=== PATIENT | male | born 1965 ===

== ENCOUNTER 2017-05-04 19:27 | Inpatient (IN) | payer OTHER ==
[2017-05-04 19:28] VITALS: BMI 25.0
[2017-05-04] MEDS ORDERED: Sodium Chloride 0.9% 1,000 ML IV ONE ×2 (20:25→21:46)
[2017-05-04 20:37] LABS: BASO # 0.1 K/uL (0.0-0.2); BASO % 0.7 % (0.0-2.0); EOS # 0.1 K/uL (0.0-0.7); EOS % 1.5 % (0.0-4.0); HEMATOCRIT 35.1 % (35.0-51.0); LYMPH # 1.5 K/uL (1.0-4.3); LYMPH % 19.1 % (20.0-40.0); MEAN CELL VOLUME 99.3 fL (80.0-94.0); MEAN CORPUSCULAR HEMOGLOBIN 33.3 pg (27.0-31.0); MEAN CORPUSCULAR HGB CONC 33.6 g/dL (33.0-37.0); MEAN PLATELET VOLUME 8.7 fL (7.2-11.7); MONO # 1.1 K/uL (0.0-0.8); MONO % 14.7 % (0.0-10.0); RED CELL DISTRIBUTION WIDTH 13.5 % (11.5-14.5); WHITE BLOOD COUNT 7.6 K/uL (4.8-10.8)
[2017-05-04 20:45] LABS: CHLORIDE 88 mmol/L (98-107); SODIUM 128 mmol/L (132-148)
[2017-05-04 20:47] LABS: GFR AFRICAN-AMERICAN > 60
[2017-05-04 20:48] LABS: ALB/GLOB RATIO 1.1 (1.0-2.1); ALKALINE PHOSPHATASE 81 U/L (38-126); ALT/SGPT 21 U/L (21-72); AST/SGOT 28 U/L (17-59); BILIRUBIN,TOTAL 0.9 mg/dL (0.2-1.3); BLOOD UREA NITROGEN 13 mg/dL (9-20); CALCIUM 9.6 mg/dl (8.6-10.4); CARBON DIOXIDE 18 mmol/L (22-30); TOTAL PROTEIN 7.3 g/dL (6.3-8.3)
[2017-05-04 20:49] LABS: ALCOHOL SERUM 258 mg/dl (0-10)
[2017-05-04 21:01] LABS: GLUCOSE,RANDOM 638 mg/dL (75-110)
[2017-05-04 21:02] LABS: POTASSIUM 5.1 mmol/L (3.6-5.2)
[2017-05-04 21:37] LABS: VENOUS BLOOD GAS BASE EXCESS -6.6 mmol/L (0.0-2.0); VENOUS BLOOD GAS PCO2 34 mmHg (40-60); VENOUS BLOOD PH 7.34 (7.32-7.43)
[2017-05-04] MEDS ORDERED: (Novolin R) Insulin Human Regular 100 units/ml vial IV STA (21:46)
[2017-05-04] MEDS ORDERED: Piperacillin/Tazobact 3.375 gm 100 ML IVPB STA (21:46)
[2017-05-04] MEDS ORDERED: Vancomycin 1 GM 1 GM/250 ML BAG IVPB STA (21:47)
[2017-05-04] MEDS ORDERED: (Novolin R) Insulin Human Regular 100 units/ml vial ONE (22:11)
[2017-05-04] MEDS ORDERED: Piperacillin/Tazobact 3.375 gm 100 ML IVPB ONE (22:11)
[2017-05-04] MEDS ORDERED: Vancomycin 1 GM 1 GM/250 ML BAG IVPB ONE (22:11)
--- NOTE | 2017-05-04 23:07 | C.PDOC ---
Time Seen by Provider: 05/04/17 20:08 Chief Complaint (Nursing): Abnormal Skin Integrity History Per: Patient, Family Onset/Duration Of Symptoms: Days (about 1 week) Current Symptoms Are (Timing): Worse Location Of Injury: Left: Foot, Leg Quality Of Symptoms: Painful, Swollen, Draining Severity: Moderate Additional History Per: Prior Records Past Medical History Reviewed: Historical Data, Nursing Documentation, Vital Signs Vital Signs: Last Vital Signs Temp 98.3 F 05/04/17 21:14 Pulse 95 H 05/04/17 21:23 Resp 18 05/04/17 21:23 BP 104/58 L 05/04/17 21:23 Pulse Ox 96 05/04/17 21:23 - Medical History PMH: Diabetes, HTN Other PMH: Alcohol abuse Surgical History: Appendectomy, Cholecystectomy - [facility] Procedures EXCISION OF LEFT FOOT SKIN, EXTERNAL APPROACH (10/17/16) INSERTION OF INFUSION DEV INTO SUP VENA CAVA, PERC APPROACH (02/29/16) OTHER SKIN & SUBQ I D (03/06/14) Family History: States: Unknown Family Hx - Social History Hx Tobacco Use: No Hx Alcohol Use: Yes Hx Substance Use: No - Immunization History Hx Tetanus Toxoid Vaccination: No Hx Influenza Vaccination: No Hx Pneumococcal Vaccination: No Review Of Systems Except As Marked, All Systems Reviewed And Found Negative. Constitutional: Negative for: Fever Cardiovascular: Negative for: Chest Pain Respiratory: Negative for: Shortness of Breath Gastrointestinal: Negative for: Vomiting, Abdominal Pain Musculoskeletal: Positive for: Leg Pain (left), Foot Pain (left). Negative for : Neck Pain Skin: Positive for: Rash Neurological: Negative for: Weakness, Seizures Physical Exam - Physical Exam Appears: Other (AOB) Skin: Warm, Dry Head: Atraumatic, Normacephalic Eye(s): bilateral: PERRL, EOMI Neck: Normal ROM, Supple Cardiovascular: Rhythm Regular Respiratory: Normal Breath Sounds, No Accessory Muscle Use Gastrointestinal/Abdominal: Soft, No Tenderness Back: No CVA Tenderness Extremity: Normal ROM, Other (Left foot ulcers, infected. Left foot erythema/ induration that is spreading up left leg. ) Pulses: Left Dorsalis Pedis: Normal, Right Dorsalis Pedis: Normal Neurological/Psych: Oriented x3, Normal Motor, Normal Sensation ED Course And Treatment - Laboratory Results Result Diagrams: 05/04/17 20:32 05/04/17 20:32 Lab Interpretation: Abnormal Interpretation Of Abnormal: Hyperglycemia without acidosis. Elevated alcohol level. O2 Sat by Pulse Oximetry: 96 Pulse Ox Interpretation: Normal - Other Rad Left foot/leg x-rays X-Ray: Interpreted by Me, Viewed By Me Interpretation: No fx or FB. Progress - Interventions Interventions:: Observation, Intravenous fluid - Medications Administered Intravenous: Other (Insulin. Abx.) - Data Reviewed Data Reviewed: Lab, Diagnostic imaging, Old records - Patient Status Patient status: Partially improved - Critical Care Citical Care: Excluding Proc Time Critical Care Time: 60 minutes - Continuity of Care Discussed patient case with:: Patient, Family-HIPPA compliant, ED Nurse, On- call PMD-pt unassigned - Patient Plan Patient Plan: Admission Disposition Discussed With DrNettie: Johnathon Diaz Comment: He accepted pt on hospitalist service. Doctor Will See Patient In The: Hospital Counseled Patient/Family Regarding: Studies Performed, Diagnosis - Disposition Disposition: HOSPITALIZED Disposition Time: 23:09 Condition: SERIOUS - POA Present On Arrival: Poor Glycemic Control - Clinical Impression Clinical Impression: Diabetic foot ulcers, Cellulitis of left leg, Diabetic infection of left foot, Alcohol abuse, Uncontrolled diabetes mellitus
--- NOTE | 2017-05-05 01:18 | CP.PCM.HP ---
<KatharineNilsa L. - Last Filed: 05/05/17 01:13> History of Present Illness - History of Present Illness History of Present Illness: CC: foot infection HPI: Patient is a 51 y/o male with PMHx of HTN and DMII, who presents to the ED because he noticed the wounds on his left foot were getting worse. Patient first noticed wounds 3 days ago. Patient also first noticed redness on left anterior leg 3 days ago. Patient has no pain in foot or leg. Patient says he has had an infection like this a few years ago. Patient denies headache, shortness of breath, chest pain, abdominal pain, nausea, vomiting, diarrhea, or constipation. PMD: [facility] (has not been in over 1 year) Allergies: NKDA PMHx: HTN, DMII Psurg: Cholecystectomy 2010 Famhx: mom and dad- DMII stomach cancer in family Social: denies tobacco and drugs. says only drinks 3 beers once per month, but is intoxicated on exam Works for [employer] medications: Metformin 1000 BID Present on Admission - Present on Admission Any Indicators Present on Admission: Yes History of DVT/PE: No History of Uncontrolled Diabetes: Yes Urinary Catheter: No Decubitus Ulcer Present: No Review of Systems - Constitutional Constitutional: absent: Frequent Falls, Headache - EENT Eyes: absent: Blurred Vision Nose/Mouth/Throat: absent: Nasal Congestion, Mouth Pain - Cardiovascular Cardiovascular: Leg Ulcers. absent: Chest Pain, Edema, Palpitations Additional comments: two ulcers on left foot - Respiratory Respiratory: absent: Cough, Dyspnea, Chest Congestion - Gastrointestinal Gastrointestinal: absent: Abdominal Pain, Diarrhea, Vomiting - Genitourinary Genitourinary: absent: Difficulty Urinating, Urinary Incontinence - Integumentary Integumentary: Skin Ulcer - Neurological Neurological: absent: Behavioral Changes, Dizziness - Psychiatric Psychiatric: absent: Confusion - Endocrine Endocrine: absent: Change in Body Appearance, Fatigue, Palpitations - Hematologic/Lymphatic Hematologic: absent: Easy Bleeding, Easy Bruising Past Patient History - Infectious Disease Hx of Infectious Diseases: None - Past Medical History & Family History Past Medical History?: Yes - Past Social History Smoking Status: Never Smoked - CARDIAC Hx Hypertension: Yes - PULMONARY Hx Respiratory Disorders: No - NEUROLOGICAL Hx Neurological Disorder: No - HEENT Hx HEENT Problems: No - RENAL Hx Chronic Kidney Disease: No - ENDOCRINE/METABOLIC Hx Endocrine Disorders: Yes Hx Diabetes Mellitus Type 2: Yes - HEMATOLOGICAL/ONCOLOGICAL Hx Blood Disorders: No Hx Blood Transfusions: No Hx Blood Transfusion Reaction: No - INTEGUMENTARY Hx Dermatological Problems: Yes Hx Cellulitis: Yes (right big toe) - MUSCULOSKELETAL/RHEUMATOLOGICAL Hx Musculoskeletal Disorders: No Hx Falls: No - GASTROINTESTINAL Hx Gastrointestinal Disorders: No - GENITOURINARY/GYNECOLOGICAL Hx Genitourinary Disorders: No - PSYCHIATRIC Hx Substance Use: No - SURGICAL HISTORY Hx Appendectomy: Yes Hx Cholecystectomy: Yes - ANESTHESIA Hx Anesthesia: Yes Hx Anesthesia Reactions: No Hx Malignant Hyperthermia: No Meds Allergies/Adverse Reactions: Allergies Allergy/AdvReac Type Severity Reaction Status Date / Time No Known Allergies Allergy Verified 10/17/16 14:59 Physical Exam - Constitutional Appears: Non-toxic, No Acute Distress - Head Exam Head Exam: ATRAUMATIC, NORMAL INSPECTION, NORMOCEPHALIC - Eye Exam Eye Exam: EOMI, Normal appearance, PERRL - ENT Exam ENT Exam: Mucous Membranes Moist, Normal Exam - Neck Exam Neck exam: Positive for: Normal Inspection - Respiratory Exam Respiratory Exam: Clear to Auscultation Bilateral, NORMAL BREATHING PATTERN. absent: Rales, Rhonchi, Wheezes, Respiratory Distress, Stridor - Cardiovascular Exam Cardiovascular Exam: REGULAR RHYTHM, RRR - GI/Abdominal Exam GI & Abdominal Exam: Normal Bowel Sounds, Soft. absent: Tenderness - Extremities Exam Additional comments: left foot two ulcers one ulcer between first and second toe 2nd ulcer on bottom left side of foot - Back Exam Back exam: NORMAL INSPECTION. absent: rash noted - Neurological Exam Neurological exam: Alert, Oriented x3 - Psychiatric Exam Psychiatric exam: Normal Affect, Normal Mood - Skin Additional comments: left foot two ulcers one ulcer between first and second toe 2nd ulcer on bottom left side of foot anterior portion of left leg below knee erythematous Results - Vital Signs Recent Vital Signs: Last Vital Signs Temp 97.5 F L 05/05/17 00:33 Pulse 97 H 05/05/17 00:33 Resp 20 05/05/17 00:33 BP 129/75 05/05/17 00:33 Pulse Ox 98 05/05/17 00:33 - Labs Result Diagrams: 05/04/17 20:32 05/04/17 20:32 Assessment & Plan - Assessment and Plan (Free Text) Assessment: 1. Diabetic Ulcer wound culture blood culture Vanco 1 g daily Zosyn 3.375 q6h f/u xray of tibia, fibula, foot 2. Uncontrolled Diabetes 10 unit IV stat given in ED ISS- medium accuchecks HgA1C 3. Alcohol abuse CIWA Aspiration precautions Neuro check q4h seizure precautions ativan 1 mg po q4h PRN 4. Prophylactic measures SCDs contraindicated due to left leg ulcers/ cellulitis <Johnathon Diaz - Last Filed: 05/05/17 06:09> Results - Vital Signs Recent Vital Signs: Last Vital Signs Temp 97.5 F L 05/05/17 00:55 Pulse 94 H 05/05/17 00:55 Resp 20 05/05/17 00:55 BP 127/76 05/05/17 00:55 Pulse Ox 97 05/05/17 00:55 - Labs Result Diagrams: 05/04/17 20:32 05/04/17 20:32 Assessment & Plan - Date & Time Date: 05/05/17 (I have seen and examined the patient. I agree with the findings and plan of care as documented by Dr. Alcantar. Patient with diabetic ulcers of lower extremity due to uncontrolled diabetes. NISS and accuchecks. Zosyn and Vanco. Wound and blood cultures. For alcohol abuse, CIWA protocol. Give thiamine and folate. Monitor for acute changes.) Time: 06:07 Attending/Attestation - Attestation I have personally seen and examined this patient.: Yes I have fully participated in the care of the patient.: Yes I have reviewed all pertinent clinical information: Yes
[2017-05-05] MEDS: Piperacill/Tazo 3.375gm in Dex 3.375 GM/50 ML BAG IVPB SCH ×4 (04:36→21:44)
[2017-05-05] MEDS ORDERED: (Novolin R) Insulin Human Regular 100 units/ml vial SC SCH (07:30)
[2017-05-05 08:48] LABS: BASO % 0.8 % (0.0-2.0); EOS # 0.2 K/uL (0.0-0.7); EOS % 3.4 % (0.0-4.0); HEMATOCRIT 33.7 % (35.0-51.0); LYMPH # 1.3 K/uL (1.0-4.3); LYMPH % 20.8 % (20.0-40.0); MEAN CELL VOLUME 99.4 fL (80.0-94.0); MEAN CORPUSCULAR HEMOGLOBIN 32.8 pg (27.0-31.0); MEAN PLATELET VOLUME 8.6 fL (7.2-11.7); MONO # 0.8 K/uL (0.0-0.8); MONO % 13.7 % (0.0-10.0); RED CELL DISTRIBUTION WIDTH 13.6 % (11.5-14.5); WHITE BLOOD COUNT 6.1 K/uL (4.8-10.8)
[2017-05-05 08:59] LABS: CHLORIDE 97 mmol/L (98-107)
[2017-05-05 09:00] LABS: POTASSIUM 4.7 mmol/L (3.6-5.2); SODIUM 134 mmol/L (132-148)
[2017-05-05 09:02] LABS: ALB/GLOB RATIO 0.9 (1.0-2.1); ALKALINE PHOSPHATASE 74 U/L (38-126); ALT/SGPT 21 U/L (21-72); AST/SGOT 11 U/L (17-59); BILIRUBIN,TOTAL 0.5 mg/dL (0.2-1.3); BLOOD UREA NITROGEN 10 mg/dL (9-20); CARBON DIOXIDE 23 mmol/L (22-30); GFR AFRICAN-AMERICAN > 60; TOTAL PROTEIN 6.1 g/dL (6.3-8.3)
[2017-05-05 09:03] LABS: CALCIUM 8.4 mg/dl (8.6-10.4); MAGNESIUM 1.5 mg/dL (1.6-2.3); PHOSPHOROUS 2.9 mg/dL (2.5-4.5)
[2017-05-05 09:04] LABS: GLUCOSE,RANDOM 440 mg/dL (75-110)
--- NOTE | 2017-05-05 09:30 | RAD ---
Left tibia and fibula 05/04/2017. History: Redness and tenderness. Rule out fracture. Frontal and lateral views of the left tibia and fibula performed. No prior study available comparison. No evidence of acute displaced fracture dislocation. The osseous structures appear grossly intact. No obvious cortical destruction. . Questionable mild infiltration changes within the subcutaneous tissues of the distal calf could represent mild cellulitis. Extensive vascular calcifications are present. If symptoms persist or early osteomyelitis suspected clinically recommend followup MRI or 3 phase bone scan. Impression: No evidence acute displaced fracture nor dislocation. No definitive evidence of cortical destructive changes however the possibility of early osteomyelitis cannot be completely excluded. . Questionable mild cellulitis as above. Extensive vascular calcifications. If there is any concern for cellulitis or osteomyelitis, recommend followup MRI or 3 phase bone scan
--- NOTE | 2017-05-05 10:37 | RAD ---
PROCEDURE: Left Foot Radiographs. HISTORY: Diabetic ulcers, r/o osteomyelitis COMPARISON: Comparison made with prior radiographs left foot dated 12/03/2016 FINDINGS: BONES: No evidence of acute displaced fracture nor dislocation. No definitive cortical destructive changes however the possibility of very early of osteomyelitis not excluded. Consider followup MRI for further evaluation or necessary. . JOINTS: Mild degenerative changes 1st MTP and DIP joints. SOFT TISSUES: Suspect mild soft tissue swelling left great toe. Questionable mild dorsal soft tissue swelling at the level of the metacarpals and MTP joints. ; rule out cellulitis. Vascular calcifications again noted OTHER FINDINGS: None. IMPRESSION: No acute fractures nor obvious cortical destructive changes however early osteomyelitis not excluded. . Suspect mild soft tissue swelling left great toe. Questionable mild dorsal soft tissue swelling at the level of the metacarpals and MTP joints. ; rule out cellulitis. Vascular calcifications again noted Followup MRI could be performed for further evaluation if necessary as above
[2017-05-05] MEDS: Magnesium Sulfate 1 gm in D5W 1 GM/100 ML BAG IVPB SCH ×2 (12:11→13:15)
[2017-05-05] MEDS: Sodium Chloride 0.9% 1,000 ML IV SCH ×2 (12:12→21:47)
[2017-05-05] MEDS ORDERED: (Novolin R) Insulin Human Regular 100 units/ml vial SC ONE (12:47)
--- NOTE | 2017-05-05 15:25 | CP.PCM.PN ---
<Dion Cosby - Last Filed: 05/05/17 15:54> Subjective - Date & Time of Evaluation Date of Evaluation: 05/05/17 Time of Evaluation: 15:19 - Subjective Subjective: PGY-[address] Fair's service Pt seen and examined at bedside. Nursing reports blood sugars >400 this AM and sliding scale coverage given. Pt admits 15+ history of type II diabetes and admits poor glycemic control. He states he takes his metformin 1000mg BID every day, but does not take insulin. When admits not checking his BG everyday, but when he does it is "250-280, sometimes higher." He admits he has had diabetic foot ulcers requiring intervention by podiatry, the latest being in October at [facility]. He admits pain improved 3-01/21 but increased pain with attempt to bear weight on his leg. He denies fever, chills, headache, shortness of breath, chest pain, abdominal pain, nausea, vomiting, diarrhea, constipation, hallucinations, or tremors. Objective - Vital Signs/Intake and Output Vital Signs (last 24 hours): Temp Pulse Resp BP Pulse Ox 97.5 F L 94 H 20 127/76 97 05/05/17 00:55 05/05/17 00:55 05/05/17 00:55 05/05/17 00:55 05/05/17 00:55 Intake and Output: 05/05/17 05/05/17 06:59 18:59 Output Total 500 Balance -500 - Medications Medications: Current Medications Piperacillin Sod/Tazobactam Sod (Zosyn 3.375 Gm Iv Premix) 3.375 gm in 50 mls @ 200 mls/hr IVPB Q6H [facility] Last Admin: 05/05/17 09:16 Dose: 200 mls/hr Vancomycin HCl 1 gm/ Sodium (Chloride) 250 mls @ 166.7 mls/hr IVPB Q24H [facility] Sodium Chloride (Sodium Chloride 0.9%) 1,000 mls @ 100 mls/hr IV .Q10H [facility] Last Admin: 05/05/17 12:12 Dose: 100 mls/hr Insulin Human NPH (Novolin N) 14 unit SC HS [facility]K Insulin Human NPH (Novolin N) 12 unit SC ACB [facility] Insulin Human Regular (Novolin R) 0 unit SC ACHS [facility] PRN Reason: Protocol Insulin Human Regular (Novolin R) 12 unit SC ACBD [facility] Lorazepam (Ativan) 2 mg PO Q4 [facility]K PRN Reason: Taper Stop: 05/10/17 10:29 Last Admin: 05/05/17 12:10 Dose: 2 mg Lorazepam (Ativan) 1 mg IVP Q6H PRN PRN Reason: Seizure activity - Labs Labs: 05/05/17 08:43 05/05/17 08:43 - Constitutional Appears: Non-toxic, No Acute Distress - Head Exam Head Exam: ATRAUMATIC, NORMAL INSPECTION, NORMOCEPHALIC - Eye Exam Eye Exam: EOMI. absent: Scleral icterus Pupil Exam: PERRL - ENT Exam ENT Exam: Mucous Membranes Moist - Respiratory Exam Respiratory Exam: Clear to Ausculation Bilateral, NORMAL BREATHING PATTERN. absent: Rales, Rhonchi, Wheezes - Cardiovascular Exam Cardiovascular Exam: REGULAR RHYTHM, +S1, +S2 - GI/Abdominal Exam GI & Abdominal Exam: Soft, Normal Bowel Sounds. absent: Tenderness - Extremities Exam Extremities Exam: Normal Capillary Refill. absent: Calf Tenderness, Normal Inspection, Pedal Edema Additional comments: left foot two ulcers one ulcer between first and second toe 2nd ulcer on bottom left side of foot Left leg warmer to touch than left DP/PT pulses palpated, weaker on left Red cellultic 6 cm rash on left leg "result of pain thinner spill last week" - denies pain at site - Neurological Exam Neurological Exam: Alert, Awake, Oriented x3 Additional comments: No tremors or tongue fasciculation - Psychiatric Exam Psychiatric exam: Normal Affect, Normal Mood - Skin Skin Exam: Normal Color, Warm Assessment and Plan - Assessment and Plan (Free Text) Plan: Left Foot Penetrating Wound Admit to Med/Surg Floor Hx of Diabetic ulcer on same foot in October - MRI on prior admission of left foot (10/24/16): Scale muscle and subcutaneous inflammatory chagnes at plantar aspect of distal left foot at level of 4th/5th metatarsal bones and toes. No evidence of osteomyelitis. - Left foot wound culture on prior admission (MRSA, beta hemolytic strep group B ) - Prior hx of osteomyelitis on RIGHT foot XR Left foot (05/04/17): No acute fractures nor obvious cortical destructive changes however early osteomyelitis not excluded. Suspect mild soft tissue swelling of left great toe. Questionable mild soft tissue swelling at level of metacarpals and MTP joints. R/o cellulitis. F/u MRI for further evaluation if necessary (see full report) XR Left Tib/Fib (05/04/17): No evidence acute fracture or dislocation. Early osteomyelitis cannot be excluded completely. Questionable mild cellulitis. Extensive vascular calcifications. f/u with MRI if concern for osteomyelitis ( see full report). f/u MRI of left foot Vancomycin 1g and Zosyn 3.375g given in ED Vancomycin 1g IV Daily Zosyn 3.375g IV q6 Podiatry consult- Dr. Hernandez, hermes appreciated - f/u reccs f/u ESR, blood cultures, wound cultures Uncontrolled Type 2 diabetes Mellitus Novolin low sliding scale coverage Diabetic Diet accu check ACHS f/u A1C, lipid panel - range of 10.9 -13 over past 4 years of admissions Endocrinology consult: Dr. Mcconnell - Novonancie NPH coverage - Novolin low sliding scale Elevated Blood Alcohol EtOH level on admission: 258 Ativan taper Prophylaxis GI- Pepcid 20mg po BID DVT- heparin 5000 Q12H Diabetic Diet Discussed with Dr. Marv Cosby PGY-1 <Juliana Fair V - Last Filed: 05/05/17 23:57> Objective - Vital Signs/Intake and Output Vital Signs (last 24 hours): Temp Pulse Resp BP Pulse Ox 97.6 F 82 18 140/81 98 05/05/17 15:49 05/05/17 15:49 05/05/17 15:49 05/05/17 15:49 05/05/17 15:49 Intake and Output: 05/05/17 05/06/17 18:59 06:59 Intake Total 1850 Balance 1850 - Medications Medications: Current Medications Famotidine (Pepcid) 20 mg PO BID [facility]AUSHIK Last Admin: 05/05/17 17:52 Dose: 20 mg Heparin Sodium (Porcine) (Heparin) 5,000 units SC Q12H [facility]AUSHIK Last Admin: 05/05/17 21:45 Dose: 5,000 units Piperacillin Sod/Tazobactam Sod (Zosyn 3.375 Gm Iv Premix) 3.375 gm in 50 mls @ 200 mls/hr IVPB Q6H [facility] Last Admin: 05/05/17 21:44 Dose: 200 mls/hr Vancomycin HCl 1 gm/ Sodium (Chloride) 250 mls @ 166.7 mls/hr IVPB Q24H [facility] Last Admin: 05/05/17 22:29 Dose: 166.7 mls/hr Sodium Chloride (Sodium Chloride 0.9%) 1,000 mls @ 100 mls/hr IV .Q10H [facility] Last Admin: 05/05/17 21:47 Dose: Not Given Insulin Human NPH (Novolin N) 14 unit SC HS KA[facility]HIK Last Admin: 05/05/17 21:45 Dose: 14 unit Insulin Human NPH (Novolin N) 12 unit SC ACB [facility]K Insulin Human Regular (Novolin R) 0 unit SC ACHS [facility]HIK PRN Reason: Protocol Last Admin: 05/05/17 21:46 Dose: 14 unit Insulin Human Regular (Novolin R) 12 unit SC ACBD [facility] Last Admin: 05/05/17 16:26 Dose: 12 unit Lorazepam (Ativan) 2 mg PO Q4 [facility]HIK PRN Reason: Taper Stop: 05/10/17 10:29 Last Admin: 05/05/17 20:09 Dose: Not Given Lorazepam (Ativan) 1 mg IVP Q6H PRN PRN Reason: Seizure activity - Labs Labs: 05/05/17 08:43 05/05/17 08:43 Attending/Attestation - Attestation I have personally seen and examined this patient.: Yes I have fully participated in the care of the patient.: Yes I have reviewed all pertinent clinical information, including history, physical exam and plan: Yes Notes (Text): Patient seen, examined, and case discussed with day-time resident Patient has worsening left foot ulcer, he denied he had prior troubles with this foot, however per EMR review and discussion with resident, remains an acute on chronic issue. Discussed with podiatry, Dr Hernandez, who will send resident and she the patient regarding the foot. Per review of xrays cannot exclude osteomyelitis. Ordered for Lower left extremity MRI r/o osteomyelitis. Patient is an uncontrolled diabetes, per view of EMR, a1c remains in double digits in spite of metformin/question of compliance. Endocrinology consulted recommended (Dr. Mcconnell) given persisten hyperglycemia, uncontrolled diabetes likely requiring insulin. Patient reports he drinks 3, 16 ounces beers a week. Patient denies withdrawal denies abuse of alcohol. Patient reports he drinks 10-12 bottles of water a day. Patient placed on Ativan taper for alcohol withdrawal given his dependence. Patient is on IV abx at present.
[2017-05-05] MEDS: (Novolin R) Insulin Human Regular 100 units/ml vial SC SCH ×3 (16:26→21:46)
[2017-05-05] MEDS ORDERED: Insulin Detemir 100 units/ml Vial (Levemir) SC SCH (22:00)
[2017-05-05] MEDS ORDERED: (Novolin N) Insulin Human Isophane (NPH) 100 u/ml 10 ml vial SC SCH (22:00)
--- NOTE | 2017-05-05 22:23 | CON ---
DATE: 05/05/2017 ENDOCRINOLOGY CONSULTATION Room 655. HISTORY OF PRESENT ILLNESS: This is a 51-year-old male with known history of type 2 diabetes, admitted here with left leg cellulitis and associated neuropathic ulceration and is being referred now for diabetic evaluation because of marked hyperglycemic acceleration as noted thereof. PAST MEDICAL HISTORY: As mentioned above, history of type 2 diabetes, currently on metformin taken as 1 g b.i.d. He admits to having used insulin some years ago, which was eventually discontinued by the patient. No recent medical followup as noted. FAMILY HISTORY: Positive for diabetes, hypertension with both parents having type 2 diabetes, on oral hypoglycemic therapy. SOCIAL HISTORY: No known substance use. REVIEW OF SYSTEMS: As mentioned above, admits to generalized body weakness with easy fatigability and tiredness and suboptimal energy level, also admits to episodic bouts of dizziness and lightheadedness, worse on the day of admission. No chest pain, palpitations, or PND. His oral intake has been variable with nausea, dyspepsia, and vague abdominal pain, also admits to marked polyuria, nocturia, and polydipsia as mentioned. PHYSICAL EXAMINATION GENERAL: This is an average built male, in no apparent distress. VITAL SIGNS: Blood pressure of 140/80, pulse of 70 bpm, regular, temperature 98, respiratory rate 20, height is 5 feet 4 inches, weight is 145 pounds. HEENT: Head is normocephalic. Eyes, anicteric with pink conjunctivae, and funduscopy not possible at this time. Ears, nose, and throat otherwise normal. NECK: Supple. Thyroid gland is normal sized. No carotid bruits or any cervical adenopathy. CARDIOPULMONARY: Adynamic precordium. S1, S2 is rapid and regular. LUNGS: Clear to auscultation. ABDOMEN: Flat, soft with positive bowel sounds. EXTREMITIES: No peripheral edema. Pulses are +2 bilaterally. The distal aspect of the left leg has marked erythema, edema and with presence of an infected ulceration as noted distally. LABORATORY DATA: The initial chemistry showed the BUN of 13, sodium 128, potassium 5.1, chloride 88,CO2 18, glucose is 638, creatinine is 0.6. ASSESSMENT: This is a 51-year-old male with uncontrolled and decompensated type 2 insulin-requiring diabetes, presenting here with marked hyperglycemia accelerations. Today, it is subtherapeutic insulin regimen. He also has an infected left leg cellulitis with concomitant neuropathic ulceration as noted thereof. Plan of management as discussed with the patient and staff. need for initiation of insulin therapy, perhaps must be overemphasis and we will start him right away on basal and bolus insulin drug combination as ordered. He has normal health insurance at this time, so we will opt to give him the more affordable insulin instead of the insulin analogs, which are triple the wilson at this time. We will start him with Novolin NPH given as 12 units a.c. breakfast and 14 units at bedtime to start today and we also modify the cover scale with Novolog insulin as given and we will titrate incrementally as indicated to optimize metabolic control. We will obtain serum chemistries and supplement accordingly as needed. We will follow. Celia Mcconnell MD
--- NOTE | 2017-05-06 02:37 | CP.PCM.CON ---
History of Present Illness - History of Present Illness History of Present Illness: 51 year old male patient with PMHx DM, HTN, alcohol abuse seen at bedside for infected left foot 1st interspace wound. Patient seen resting comfortably, AAOx3 and NAD. Patient is accompanied by his daughter. Patient states that he has had this wound for approximately 3 days. Patient denies any pain to left foot. Patient denies N/V/F/D/C/SOB/CP. No other pedal complaints at this time. PMH: DM, HTN PSH: cholecystectomy FH: DM2 (mother and father) SH: alcohol abuse Meds: Metformin All: NKDA Review of Systems - Review of Systems All systems: reviewed and no additional remarkable complaints except (as per HPI ) Past Patient History - Infectious Disease Hx of Infectious Diseases: None - Past Medical History & Family History Past Medical History?: Yes - Past Social History Smoking Status: Never Smoked - CARDIAC Hx Hypertension: Yes - PULMONARY Hx Respiratory Disorders: No - NEUROLOGICAL Hx Neurological Disorder: No - HEENT Hx HEENT Problems: No - RENAL Hx Chronic Kidney Disease: No - ENDOCRINE/METABOLIC Hx Endocrine Disorders: Yes Hx Diabetes Mellitus Type 2: Yes - HEMATOLOGICAL/ONCOLOGICAL Hx Blood Disorders: No Hx Blood Transfusions: No Hx Blood Transfusion Reaction: No - INTEGUMENTARY Hx Dermatological Problems: Yes Hx Cellulitis: Yes (right big toe) - MUSCULOSKELETAL/RHEUMATOLOGICAL Hx Musculoskeletal Disorders: No Hx Falls: No - GASTROINTESTINAL Hx Gastrointestinal Disorders: No - GENITOURINARY/GYNECOLOGICAL Hx Genitourinary Disorders: No - PSYCHIATRIC Hx Substance Use: No - SURGICAL HISTORY Hx Appendectomy: Yes Hx Cholecystectomy: Yes - ANESTHESIA Hx Anesthesia: Yes Hx Anesthesia Reactions: No Hx Malignant Hyperthermia: No Meds Allergies/Adverse Reactions: Allergies Allergy/AdvReac Type Severity Reaction Status Date / Time No Known Allergies Allergy Verified 10/17/16 14:59 - Medications Medications: Current Medications Famotidine (Pepcid) 20 mg PO BID [facility] Last Admin: 05/05/17 17:52 Dose: 20 mg Heparin Sodium (Porcine) (Heparin) 5,000 units SC Q12H [facility] Last Admin: 05/05/17 21:45 Dose: 5,000 units Piperacillin Sod/Tazobactam Sod (Zosyn 3.375 Gm Iv Premix) 3.375 gm in 50 mls @ 200 mls/hr IVPB Q6H [facility] Last Admin: 05/05/17 21:44 Dose: 200 mls/hr Vancomycin HCl 1 gm/ Sodium (Chloride) 250 mls @ 166.7 mls/hr IVPB Q24H [facility] Last Admin: 05/05/17 22:29 Dose: 166.7 mls/hr Sodium Chloride (Sodium Chloride 0.9%) 1,000 mls @ 100 mls/hr IV .Q10H [facility] Last Admin: 05/05/17 21:47 Dose: Not Given Insulin Human NPH (Novolin N) 14 unit SC HS [facility] Last Admin: 05/05/17 21:45 Dose: 14 unit Insulin Human NPH (Novolin N) 12 unit SC ACB [facility] Insulin Human Regular (Novolin R) 0 unit SC ACHS [facility] PRN Reason: Protocol Last Admin: 05/05/17 21:46 Dose: 14 unit Insulin Human Regular (Novolin R) 12 unit SC ACBD [facility] Last Admin: 05/05/17 16:26 Dose: 12 unit Lorazepam (Ativan) 2 mg PO Q4 [facility] PRN Reason: Taper Stop: 05/10/17 10:29 Last Admin: 05/05/17 23:54 Dose: 2 mg Lorazepam (Ativan) 1 mg IVP Q6H PRN PRN Reason: Seizure activity Physical Exam - Extremities Exam Additional comments: LLE exam: Derm: Severe maceration noted to L 1st interspace with weeping noted. Ulceration to lateral hallucal base noted, approximately 1cc purulence was expressed. +probe to bone. Approximately 0.8cm x 1.0cm x 0.3cm wound at lateral plantar forefoot, base fibrous no drainage, no malodor, dose not probe to bone, edges hyperkeratotic. Vascular: DP and PT pulses 2/4, CFT <3sec, TG warm to warm Neuro: Gross sensation diminished Ortho: No pain on palpation of 1st IS periwound area. No pain on palpation plantarlateral forefoot wound. Extensor substitution hammertoe deformities of digits 2-5. - Neurological Exam Neurological exam: Alert, Oriented x3 - Psychiatric Exam Psychiatric exam: Normal Affect, Normal Mood Results - Vital Signs Recent Vital Signs: Last Vital Signs Temp 97.6 F 05/05/17 15:49 Pulse 82 05/05/17 15:49 Resp 18 05/05/17 15:49 BP 140/81 05/05/17 15:49 Pulse Ox 98 05/05/17 15:49 - Labs Result Diagrams: 05/05/17 08:43 05/05/17 08:43 Labs: Laboratory Results - last 24 hr 05/05/17 05/05/17 05/05/17 06:12 08:43 08:43 WBC 6.1 RBC 3.39 L Hgb 11.1 L Hct 33.7 L MCV 99.4 H MCH 32.8 H MCHC 33.0 RDW 13.6 Plt Count 267 MPV 8.6 Neut % (Auto) 61.3 Lymph % (Auto) 20.8 [place] % (Auto) 13.7 H Eos % (Auto) 3.4 Baso % (Auto) 0.8 Neut # 3.7 Lymph # 1.3 [place] # 0.8 Eos # 0.2 Baso # 0.0 Sodium Potassium Chloride Carbon Dioxide Anion Gap BUN Creatinine Est GFR ( Amer) Est GFR (Non-Af Amer) POC Glucose (mg/dL) 416 H* Random Glucose Hemoglobin A1c 14.3 H D Calcium Phosphorus Magnesium Total Bilirubin AST ALT Alkaline Phosphatase Total Protein Albumin Globulin Albumin/Globulin Ratio 05/05/17 05/05/17 05/05/17 08:43 12:04 17:17 WBC RBC Hgb Hct MCV MCH MCHC RDW Plt Count MPV Neut % (Auto) Lymph % (Auto) [place] % (Auto) Eos % (Auto) Baso % (Auto) Neut # Lymph # [place] # Eos # Baso # Sodium 134 Potassium 4.7 Chloride 97 L Carbon Dioxide 23 Anion Gap 19 BUN 10 Creatinine 0.6 L Est GFR ( Amer) > 60 Est GFR (Non-Af Amer) > 60 POC Glucose (mg/dL) 281 H 321 H Random Glucose 440 H* D Hemoglobin A1c Calcium 8.4 L Phosphorus 2.9 Magnesium 1.5 L Total Bilirubin 0.5 AST 11 L D ALT 21 Alkaline Phosphatase 74 Total Protein 6.1 L Albumin 2.9 L D Globulin 3.1 Albumin/Globulin Ratio 0.9 L 05/05/17 21:31 WBC RBC Hgb Hct MCV MCH MCHC RDW Plt Count MPV Neut % (Auto) Lymph % (Auto) [place] % (Auto) Eos % (Auto) Baso % (Auto) Neut # Lymph # [place] # Eos # Baso # Sodium Potassium Chloride Carbon Dioxide Anion Gap BUN Creatinine Est GFR ( Amer) Est GFR (Non-Af Amer) POC Glucose (mg/dL) 276 H Random Glucose Hemoglobin A1c Calcium Phosphorus Magnesium Total Bilirubin AST ALT Alkaline Phosphatase Total Protein Albumin Globulin Albumin/Globulin Ratio Assessment & Plan - Assessment and Plan (Free Text) Assessment: 51 year old male with L 1st interspace infected ulceration secondary to DM Plan: Patient seen and evaluated. Discussed with attending, Dr. Hernandez. Charts, labs, vitals reviewed = WBC WNL @ 6.1, vital signs stable F/U wound cx results MRI LLE ordered Wound dressed with betadine soaked gauze, 4x4, and kerlix Podiatry will continue to follow while in house
[2017-05-06] MEDS: Piperacill/Tazo 3.375gm in Dex 3.375 GM/50 ML BAG IVPB SCH ×4 (05:01→21:03)
[2017-05-06 07:26] LABS: BASO # 0.1 K/uL (0.0-0.2); BASO % 1.2 % (0.0-2.0); EOS # 0.3 K/uL (0.0-0.7); HEMATOCRIT 38.5 % (35.0-51.0); LYMPH # 1.2 K/uL (1.0-4.3); LYMPH % 25.8 % (20.0-40.0); MEAN CELL VOLUME 99.9 fL (80.0-94.0); MEAN CORPUSCULAR HEMOGLOBIN 32.9 pg (27.0-31.0); MEAN CORPUSCULAR HGB CONC 32.9 g/dL (33.0-37.0); MEAN PLATELET VOLUME 8.9 fL (7.2-11.7); MONO # 0.5 K/uL (0.0-0.8); MONO % 11.3 % (0.0-10.0); NRBC % 0.1 % (0.0-2.0); RED CELL DISTRIBUTION WIDTH 13.7 % (11.5-14.5); WHITE BLOOD COUNT 4.5 K/uL (4.8-10.8)
[2017-05-06] MEDS ORDERED: (Novolin N) Insulin Human Isophane (NPH) 100 u/ml 10 ml vial SC SCH ×2 (07:30→22:00)
[2017-05-06 08:20] LABS: CHLORIDE 97 mmol/L (98-107)
[2017-05-06 08:21] LABS: POTASSIUM 3.5 mmol/L (3.6-5.2); SODIUM 136 mmol/L (132-148)
[2017-05-06 08:23] LABS: ALB/GLOB RATIO 0.9 (1.0-2.1); AST/SGOT 12 U/L (17-59); BILIRUBIN,TOTAL 0.8 mg/dL (0.2-1.3); BLOOD UREA NITROGEN 10 mg/dL (9-20); CARBON DIOXIDE 28 mmol/L (22-30); CHOLESTEROL 151 mg/dL (0-199); GFR AFRICAN-AMERICAN > 60; TOTAL PROTEIN 5.9 g/dL (6.3-8.3)
[2017-05-06 08:24] LABS: ALKALINE PHOSPHATASE 71 U/L (38-126); ALT/SGPT 21 U/L (21-72); CALCIUM 8.4 mg/dl (8.6-10.4); GLUCOSE,RANDOM 265 mg/dL (75-110); MAGNESIUM 1.7 mg/dL (1.6-2.3); PHOSPHOROUS 2.3 mg/dL (2.5-4.5)
[2017-05-06] MEDS: (Novolin R) Insulin Human Regular 100 units/ml vial SC SCH ×6 (08:43→21:48)
[2017-05-06] MEDS ORDERED: Potassium Chloride 20 mEq ER Tab PO ONE (10:00)
[2017-05-06] MEDS ORDERED: Magnesium Sulfate 1 gm in D5W 1 GM/100 ML BAG IVPB ONE (11:31)
[2017-05-06] MEDS ORDERED: Gadodiamide 287 MG/ML VIAL (15ML) IV ONE (13:45)
[2017-05-06 14:21] LABS: FOLATE 8.9 ng/mL
--- NOTE | 2017-05-06 15:12 | MRI ---
MRI left forefoot History: Infection. Evaluate for osteomyelitis. Comparison: None available. Technique: Multi-echo multiplanar sequences were performed through the left forefoot without the use of intravenous contrast. Findings: Moderate hallux valgus deformity. Bipartite medial sesamoid bone. Prominent vascular calcifications. Prominent signal abnormality seen at the head of the 4th metatarsal bone with patchy increased STIR and patchy decreased T1 signal. This may represent underlying acute infectious and or inflammatory change. Clinical correlation. Degenerative changes noted at the 1st interphalangeal joint space with some minimal osteochondral change. Mild nonspecific reactive edema at the 1st distal phalanx with increased STIR signal and minimal patchy decreased T1 signal, this is nonspecific ; however, acute early infectious and or inflammatory changes cannot entirely be excluded at this level. Mild nonspecific reactive edema at the 5th middle and distal phalanges which may correlate with failure of fat suppression. No gross T1 signal abnormality at this level. Mild reactive edema seen at the base of the 4th proximal phalanx, nonspecific. Focal signal abnormality seen within the posterior navicular bone demonstrating patchy decreased T1 signal and increased STIR signal which may represent some osteochondral change. Clinical correlation. Impression: 1. Prominent signal abnormality seen at the head of the 4th metatarsal bone with patchy increased STIR and patchy decreased T1 signal. This may represent underlying acute infectious and or inflammatory change. Mild reactive edema seen at the base of the 4th proximal phalanx, nonspecific. Clinical correlation. 2. Degenerative changes noted at the 1st interphalangeal joint space with some minimal osteochondral change. Mild nonspecific reactive edema at the 1st distal phalanx with increased STIR signal and minimal patchy decreased T1 signal, this is nonspecific ; however, acute early infectious and or inflammatory changes cannot entirely be excluded at this level. 3. Mild nonspecific reactive edema at the 5th middle and distal phalanges which may correlate with failure of fat suppression. No gross T1 signal abnormality at this level. 4. Focal signal abnormality seen within the posterior navicular bone demonstrating patchy decreased T1 signal and increased STIR signal which may represent some osteochondral change. Clinical correlation. 5. Moderate hallux valgus deformity. 6. Bipartite medial sesamoid bone. 7. Prominent vascular calcifications.
--- NOTE | 2017-05-06 16:52 | CP.PCM.PN ---
<Dion Cosby - Last Filed: 05/06/17 17:00> Subjective - Date & Time of Evaluation Date of Evaluation: 05/06/17 Time of Evaluation: 16:47 - Subjective Subjective: PGY-[address] Fair's service Pt seen and examined at bedside. Nursing reports no acute events overnight. He denies pain in the foot today. He is asking when he can leave to go home and was reminded the importance of treating his foot infection. He states he is tolerating diet and moving his bowels without difficulty. He denies fever, chills, calf tenderness, chest pain, palpitations, SOB, abdominal pain, nausea, vomiting. Objective - Vital Signs/Intake and Output Vital Signs (last 24 hours): Temp Pulse Resp BP Pulse Ox 97.4 F L 78 20 150/91 H 100 05/06/17 15:30 05/06/17 15:30 05/06/17 15:30 05/06/17 15:30 05/06/17 15:30 Intake and Output: 05/06/17 05/06/17 06:59 18:59 Intake Total 800 Balance 800 - Medications Medications: Current Medications Famotidine (Pepcid) 20 mg PO BID [facility] Last Admin: 05/06/17 09:36 Dose: 20 mg Heparin Sodium (Porcine) (Heparin) 5,000 units SC Q12H [facility] Last Admin: 05/06/17 09:36 Dose: 5,000 units Piperacillin Sod/Tazobactam Sod (Zosyn 3.375 Gm Iv Premix) 3.375 gm in 50 mls @ 200 mls/hr IVPB Q6H [facility] Last Admin: 05/06/17 09:37 Dose: 200 mls/hr Vancomycin HCl 1 gm/ Sodium (Chloride) 250 mls @ 166.7 mls/hr IVPB Q24H [facility] Last Admin: 05/05/17 22:29 Dose: 166.7 mls/hr Sodium Chloride (Sodium Chloride 0.9%) 1,000 mls @ 100 mls/hr IV .Q10H [facility] Last Admin: 05/05/17 21:47 Dose: Not Given Insulin Human NPH (Novolin N) 20 unit SC HS [facility] Insulin Human NPH (Novolin N) 16 unit SC ACB [facility] Insulin Human Regular (Novolin R) 0 unit SC ACHS [facility] PRN Reason: Protocol Last Admin: 05/06/17 14:08 Dose: 3 unit Insulin Human Regular (Novolin R) 14 unit SC ACBD [facility] Lorazepam (Ativan) 2 mg PO Q4 [facility] PRN Reason: Taper Stop: 05/10/17 10:29 Last Admin: 05/06/17 11:48 Dose: Not Given Lorazepam (Ativan) 1 mg IVP Q6H [facility] PRN Reason: Seizure activity - Labs Labs: 05/06/17 07:05 05/06/17 07:05 - Constitutional Appears: Non-toxic, No Acute Distress - Head Exam Head Exam: ATRAUMATIC, NORMAL INSPECTION, NORMOCEPHALIC - Eye Exam Eye Exam: EOMI, Normal appearance Pupil Exam: PERRL - ENT Exam ENT Exam: Mucous Membranes Moist - Neck Exam Neck Exam: Normal Inspection - Respiratory Exam Respiratory Exam: Clear to Ausculation Bilateral, Rales, NORMAL BREATHING PATTERN. absent: Rhonchi, Wheezes - Cardiovascular Exam Cardiovascular Exam: REGULAR RHYTHM, +S1, +S2 - Extremities Exam Extremities Exam: Pedal Edema, Tenderness Additional comments: left foot two ulcers one ulcer between first and second toe 2nd wound on bottom left side of foot Left leg warmer to touch than right DP/PT pulses palpated, weaker on left Light touch diminished on L5-S1 dermatome on plantar surface of left foot Reports no pain on palpation of wound sites Red cellultic ~6 cm rash on left leg "result of pain thinner spill last week" - denies pain at site - Back Exam Back Exam: NORMAL INSPECTION. absent: CVA tenderness (L), CVA tenderness (R) - Neurological Exam Neurological Exam: Alert, Awake, Oriented x3 - Psychiatric Exam Psychiatric exam: Normal Affect, Normal Mood - Skin Skin Exam: Dry, Normal Color, Warm Assessment and Plan - Assessment and Plan (Free Text) Plan: Left Foot Penetrating Wound Admit to Med/Surg Floor Hx of Diabetic ulcer on same foot in October - MRI on prior admission of left foot (10/24/16): Scale muscle and subcutaneous inflammatory chagnes at plantar aspect of distal left foot at level of 4th/5th metatarsal bones and toes. No evidence of osteomyelitis. - Left foot wound culture on prior admission (MRSA, beta hemolytic strep group B ) - Prior hx of osteomyelitis on RIGHT foot XR Left foot (05/04/17): No acute fractures nor obvious cortical destructive changes however early osteomyelitis not excluded. Suspect mild soft tissue swelling of left great toe. Questionable mild soft tissue swelling at level of metacarpals and MTP joints. R/o cellulitis. F/u MRI for further evaluation if necessary (see full report) XR Left Tib/Fib (05/04/17): No evidence acute fracture or dislocation. Early osteomyelitis cannot be excluded completely. Questionable mild cellulitis. Extensive vascular calcifications. f/u with MRI if concern for osteomyelitis ( see full report). MRI of left foot (05/06/17): Prominent signal abnormality seen at head of 4th metatarsal bone with increased STIR and patchy decreased T1 signal. May represent underlying infectious or inflammatory changes. Mild edema at base of 4th proximal phalanx, nonspecific. Correlate clinically. Degenerative changes noted at 1st interphalangeal joint space with some minimal osteochondral change. Mild nonspecific reactive edema at 1st distal phalanx with increased STIR signal and decreased T1 signal which is non-specific, but inflammatory changes cannot be entirely excluded. Mild non-specific reactive edema at 5th middle and distal phalanges which may correlate with failure of fat suppression. No gross T1 signal abnomrality at this level. Focal signal abnormality seen with the posterior navicular bone demonstrating patchy decreased T1 signal and increased STIR signal which may represent some osteochondral change. Clinical correlation. Moderate hallux valgus deformity. Bipartite medial sesamoid bone. Prominent vascular calcifications. Vancomycin 1g and Zosyn 3.375g given in ED Vancomycin 1g IV Daily (first dose 05/05/17) Zosyn 3.375g IV q6 (first dose 05/05/17) Podiatry consult- Dr. Hernandez, help appreciated - f/u MRI, wound cx results for plan moving forward - recommend ID consult ID: Dr Soliz, help appreciated - f/u reccs ESR 41 blood cultures: no growth x 24 hrs x 2 wound cultures: gram negative mela , group G streptococcus Uncontrolled Type 2 diabetes Mellitus A1C : 14.3 - range of 10.9 -13 over past 4 years of admissions Novolin low sliding scale coverage Diabetic Diet accucheck ACHS f/u Lipid panel Endocrinology consult: Dr. Mcconnell - Novolin NPH coverage - Novolin low sliding scale Elevated Blood Alcohol Hx of alcoholism EtOH level on admission: 258 Ativan taper Macrocytic Anemia MCV 99 Vitamin B12 346, Folate 8.9 - context of pt's hx of alcoholism Prophylaxis GI- Pepcid 20mg po BID DVT- heparin 5000 Q12H Diabetic Diet Discussed with Dr. Marv Cosby PGY-1 <Juliana Fair V - Last Filed: 05/06/17 19:32> Objective - Vital Signs/Intake and Output Vital Signs (last 24 hours): Temp Pulse Resp BP Pulse Ox 97.4 F L 78 20 150/91 H 100 05/06/17 15:30 05/06/17 15:30 05/06/17 15:30 05/06/17 15:30 05/06/17 15:30 - Medications Medications: Current Medications Famotidine (Pepcid) 20 mg PO BID [facility] Last Admin: 05/06/17 17:23 Dose: 20 mg Heparin Sodium (Porcine) (Heparin) 5,000 units SC Q12H [facility] Last Admin: 05/06/17 09:36 Dose: 5,000 units Piperacillin Sod/Tazobactam Sod (Zosyn 3.375 Gm Iv Premix) 3.375 gm in 50 mls @ 200 mls/hr IVPB Q6H [facility] Last Admin: 05/06/17 17:24 Dose: 200 mls/hr Vancomycin HCl 1 gm/ Sodium (Chloride) 250 mls @ 166.7 mls/hr IVPB Q24H [facility] Last Admin: 05/05/17 22:29 Dose: 166.7 mls/hr Sodium Chloride (Sodium Chloride 0.9%) 1,000 mls @ 100 mls/hr IV .Q10H [facility] Last Admin: 05/06/17 17:25 Dose: Not Given Insulin Human NPH (Novolin N) 20 unit SC HS [facility] Insulin Human NPH (Novolin N) 16 unit SC ACB [facility] Insulin Human Regular (Novolin R) 0 unit SC ACHS [facility] PRN Reason: Protocol Last Admin: 05/06/17 17:21 Dose: Not Given Insulin Human Regular (Novolin R) 14 unit SC ACBD [facility] Last Admin: 05/06/17 17:22 Dose: 14 unit Lorazepam (Ativan) 2 mg PO Q4 [facility] PRN Reason: Taper Stop: 05/10/17 10:29 Last Admin: 05/06/17 16:00 Dose: Not Given Lorazepam (Ativan) 1 mg IVP Q6H [facility]N PRN Reason: Seizure activity Silver Sulfadiazine (Silvadene 1% 20 Gm) 0 ea TOP DAILY [facility] - Labs Labs: 05/06/17 07:05 05/06/17 07:05 Attending/Attestation - Attestation I have personally seen and examined this patient.: Yes I have fully participated in the care of the patient.: Yes I have reviewed all pertinent clinical information, including history, physical exam and plan: Yes Notes (Text): Patient seen, examined, and case discussed with day-time resident. Patient reports left foot pain is about the same. Patient is pending for MRI of left foot. Patient's [id number] is uncontrolled; 14; endocrinology consulted patient is on insulin regimen. Discussed with case management in terms of starting the process to secure patient with insulin when ready for discharge and community nutrition educator to speak with the patient tomorrow. Assessment/Plan 1) Left Foot Penetrating Wound * Hx of Diabetic ulcer on same foot in October * MRI on prior admission of left foot (10/24/16): Scale muscle and subcutaneous inflammatory chagnes at plantar aspect of distal left foot at level of 4th/5th metatarsal bones and toes. No evidence of osteomyelitis. * Left foot wound culture on prior admission (MRSA, beta hemolytic strep group B) * Prior hx of osteomyelitis on RIGHT foot * XR Left foot (05/04/17): No acute fractures nor obvious cortical destructive changes however early osteomyelitis not excluded. Suspect mild soft tissue swelling of left great toe. Questionable mild soft tissue swelling at level of metacarpals and MTP joints. R/o cellulitis. F/u MRI for further evaluation if necessary (see full report) * XR Left Tib/Fib (05/04/17): No evidence acute fracture or dislocation. Early osteomyelitis cannot be excluded completely. Questionable mild cellulitis. Extensive vascular calcifications. f/u with MRI if concern for osteomyelitis ( see full report). * MRI of left foot (05/06/17): Prominent signal abnormality seen at head of 4th metatarsal bone with increased STIR and patchy decreased T1 signal. May represent underlying infectious or inflammatory changes. Mild edema at base of 4th proximal phalanx, nonspecific. Correlate clinically. Degenerative changes noted at 1st interphalangeal joint space with some minimal osteochondral change. Mild nonspecific reactive edema at 1st distal phalanx with increased STIR signal and decreased T1 signal which is non-specific, but inflammatory changes cannot be entirely excluded. Mild non-specific reactive edema at 5th middle and distal phalanges which may correlate with failure of fat suppression. No gross T1 signal abnomrality at this level. Focal signal abnormality seen with the posterior navicular bone demonstrating patchy decreased T1 signal and increased STIR signal which may represent some osteochondral change. Clinical correlation. Moderate hallux valgus deformity. Bipartite medial sesamoid bone. Prominent vascular calcifications. * IV Abx: Vancomycin 1g and Zosyn 3.375g given in ED * Vancomycin 1g IV Daily (first dose 05/05/17) * Zosyn 3.375g IV q6H (first dose 05/05/17) * Podiatry consult- Dr. Hernandez, help appreciated-->f/u MRI, wound cx results for plan moving forward and recommend ID consult * Infectious disease- Dr Soliz, help appreciated-->f/u recommendation * Blood cultures (05/04): no growth x 24 hrs x 2 * Foot Left (05/04): gram negative mela, Group G Streptoccocus (Prelim) 2) Uncontrolled Type 2 diabetes Mellitus * A1C : 14.3 * Endocrinology consult: Dr. Mcconnell on board-->help appreciated * Novolin 20 units subHS * Novolin N 16 units ACB * Regular insulin sliding subq coverage * Regular 14 units SC ACBD * Diabetic consistent diet * Accucheck ACHS * Lipid PaneL: T, Cholestrol: 151, LDL: 86; HDL: 53 3) Alcohol Use * Alcohol use: 3x a week; 16 ounces * Ativan taper (active since 05/05/17) * Ativan 1mg IVQ 4hour PRN seizure activity 4) Prophylaxis * GI- Pepcid 20mg po BID * DVT- heparin 5000 Q12H * Diabetic Diet * Florastor 250mg PO bid
[2017-05-06] MEDS: Sodium Chloride 0.9% 1,000 ML IV SCH ×2 (17:25→21:04)
--- NOTE | 2017-05-06 17:29 | CP.PCM.PN ---
Subjective - Date & Time of Evaluation Date of Evaluation: 05/06/17 Time of Evaluation: 17:24 - Subjective Subjective: 51 year old male patient seen at bedside for infected left foot 1st interspace wound. Patient seen resting comfortably, AAOx3 and NAD. Patient denies any pain to left foot. Patient denies N/V/F/D/C/SOB/CP. No other pedal complaints at this time. Objective - Vital Signs/Intake and Output Vital Signs (last 24 hours): Temp Pulse Resp BP Pulse Ox 97.4 F L 78 20 150/91 H 100 05/06/17 15:30 05/06/17 15:30 05/06/17 15:30 05/06/17 15:30 05/06/17 15:30 Intake and Output: 05/06/17 05/06/17 06:59 18:59 Intake Total 800 Balance 800 - Medications Medications: Current Medications Famotidine (Pepcid) 20 mg PO BID [facility] Last Admin: 05/06/17 09:36 Dose: 20 mg Heparin Sodium (Porcine) (Heparin) 5,000 units SC Q12H [facility] Last Admin: 05/06/17 09:36 Dose: 5,000 units Piperacillin Sod/Tazobactam Sod (Zosyn 3.375 Gm Iv Premix) 3.375 gm in 50 mls @ 200 mls/hr IVPB Q6H [facility] Last Admin: 05/06/17 09:37 Dose: 200 mls/hr Vancomycin HCl 1 gm/ Sodium (Chloride) 250 mls @ 166.7 mls/hr IVPB Q24H [facility] Last Admin: 05/05/17 22:29 Dose: 166.7 mls/hr Sodium Chloride (Sodium Chloride 0.9%) 1,000 mls @ 100 mls/hr IV .Q10H [facility] Last Admin: 05/05/17 21:47 Dose: Not Given Insulin Human NPH (Novolin N) 20 unit SC HS [facility] Insulin Human NPH (Novolin N) 16 unit SC ACB [facility] Insulin Human Regular (Novolin R) 0 unit SC ACHS [facility] PRN Reason: Protocol Last Admin: 05/06/17 14:08 Dose: 3 unit Insulin Human Regular (Novolin R) 14 unit SC ACBD [facility] Lorazepam (Ativan) 2 mg PO Q4 [facility] PRN Reason: Taper Stop: 05/10/17 10:29 Last Admin: 05/06/17 11:48 Dose: Not Given Lorazepam (Ativan) 1 mg IVP Q6H [facility] PRN Reason: Seizure activity - Labs Labs: 05/06/17 07:05 05/06/17 07:05 - Constitutional Appears: Well, Non-toxic, No Acute Distress - Extremities Exam Additional comments: LLE exam: Derm: Severe maceration noted to L 1st interspace. Ulceration to lateral hallucal base noted, approximately no purulence was expressed. +probe to bone. Approximately 0.8cm x 1.0cm x 0.3cm wound at lateral plantar forefoot, base fibrous no drainage, no malodor, dose not probe to bone, edges hyperkeratotic. Vascular: DP and PT pulses 2/4, CFT <3sec, TG warm to warm Neuro: Gross sensation diminished Ortho: No pain on palpation of 1st IS periwound area. No pain on palpation plantarlateral forefoot wound. Extensor substitution hammertoe deformities of digits 2-5. - Neurological Exam Neurological Exam: Alert, Awake, Oriented x3 - Psychiatric Exam Psychiatric exam: Normal Affect, Normal Mood Assessment and Plan - Assessment and Plan (Free Text) Assessment: 51 year old male with L 1st interspace infected ulceration secondary to DM Plan: Patient seen and evaluated. Discussed with attending, Dr. Hernandez. Charts, labs, vitals reviewed = WBC WNL @4.5, vital signs stable F/U wound cx results- prelim gram neg rods MRI LLE shows signal abnormality of 4th met head,1st interspace, middle and distal 5th phalanges Wound dressed with betadine soaked gauze, 4x4, and kerlix Podiatry will continue to follow while in house
--- NOTE | 2017-05-06 21:08 | CP.PCM.CON ---
History of Present Illness - History of Present Illness History of Present Illness: Patient is admitted with left leg pain and leg ulcer 3 days ago. Patient has no pain in foot or leg. Patient says he has had an infection like this a few years ago. Patient denies headache, shortness of breath, chest pain, abdominal pain, nausea, vomiting, diarrhea, or constipation.Patient has received many admission here with cellulitis in past PMD: [facility] (has not been in over 1 year) Allergies: NKDA PMHx: HTN, DMII Pastsurgery Cholecystectomy 2010 Famhx: mom and dad- DMII stomach cancer in family Social: denies tobacco and drugs. says only drinks 3 beers once per month, but is intoxicated on exam Works for [employer] home medications: Metformin 1000 BID I Review of Systems - Constitutional Constitutional: absent: As Per HPI, Anorexia, Chills, Daytime Sleepiness, Excessive Sweating, Fatigue, Fever, Frequent Falls, Headache, Increased Appetite , Lethargy, Malaise, Night Sweats, Snoring, Sleep Apnea, Weight Gain, Weight Loss, Weakness, Other - EENT Eyes: absent: As Per HPI, Blind Spots, Blurred Vision, Change in Vision, Decreased Night Vision, Diplopia, Discharge, Dry Eye, Exophthalmos, Floaters, Irritation, Itchy Eyes, Loss of Peripheral Vision, Pain, Photophobia, Requires Corrective Lenses, Sees Flashes, Spots in Vision, Tunnel Vision, Other Visual Disturbances, Loss of Vision, Other Nose/Mouth/Throat: absent: As Per HPI, Epistaxis, Nasal Congestion, Nasal Discharge, Nasal Obstruction, Nasal Trauma, Nose Pain, Post Nasal Drip, Sinus Pain, Sinus Pressure, Bleeding Gums, Change in Voice, Dental Pain, Dry Mouth, Dysphagia, Halitosis, Hoarsness, Lip Swelling, Mouth Lesions, Mouth Pain, Odynophagia, Sore Throat, Throat Swelling, Tongue Swelling, Facial Pain, Neck Pain, Neck Mass, Other - Cardiovascular Cardiovascular: absent: As Per HPI, Acrocyanosis, Chest Pain, Chest Pain at Rest , Chest Pain with Activity, Claudication, Diaphoresis, Dyspnea, Dyspnea on Exertion, Edema, Irregular Heart Rhythm, Pain Radiating to Arm/Neck/Jaw, Leg Edema, Leg Ulcers, Lightheadedness, Orthopnea, Palpitations, Paroxysmal Nocturnal Dyspnea, Pedal Edema, Radiating Pain, Rapid Heart Rate, Slow Heart Rate, Syncope, Other - Respiratory Respiratory: absent: As Per HPI, Cough, Dyspnea, Hemoptysis, Dyspnea on Exertion , Wheezing, Snoring, Stridor, Pain on Inspiration, Chest Congestion, Excessive Mucous Production, Change in Mucous Color, Pain with Coughing, Other - Gastrointestinal Gastrointestinal: absent: As Per HPI, Abdominal Pain, Belching, Bloating, Change in Bowel Habits, Change in Stool Character, Coffee Ground Emesis, Constipation, Cramping, Diarrhea, Dyspepsia, Dysphagia, Early Satiety, Excessive Flatus, Fecal Incontinence, Heartburn, Hematemesis, Hematochezia, Loose Stools, Melena, Nausea, Odynophagia, Temesmus, Vomiting, Other - Genitourinary Genitourinary: absent: As Per HPI, Change in Urinary Stream, Difficulty Urinating, Dysuria, Flank Pain, Hematuria, Pyuria, Nocturia, Urinary Incontinence, Urinary Frequency, Urinary Hesitance, Urinary Urgency, Voiding Freq/Small Amts, Freq UTI, Hx Renal/Bladder Calculi, Hx /Renal Surgery, Bladder Distension, Other Past Patient History - Infectious Disease Hx of Infectious Diseases: None - Past Medical History & Family History Past Medical History?: Yes - Past Social History Smoking Status: Never Smoked - CARDIAC Hx Hypertension: Yes - PULMONARY Hx Respiratory Disorders: No - NEUROLOGICAL Hx Neurological Disorder: No - HEENT Hx HEENT Problems: No - RENAL Hx Chronic Kidney Disease: No - ENDOCRINE/METABOLIC Hx Endocrine Disorders: Yes Hx Diabetes Mellitus Type 2: Yes - HEMATOLOGICAL/ONCOLOGICAL Hx Blood Disorders: No Hx Blood Transfusions: No Hx Blood Transfusion Reaction: No - INTEGUMENTARY Hx Dermatological Problems: Yes Hx Cellulitis: Yes (right big toe) - MUSCULOSKELETAL/RHEUMATOLOGICAL Hx Musculoskeletal Disorders: No Hx Falls: No - GASTROINTESTINAL Hx Gastrointestinal Disorders: No - GENITOURINARY/GYNECOLOGICAL Hx Genitourinary Disorders: No - PSYCHIATRIC Hx Substance Use: No - SURGICAL HISTORY Hx Appendectomy: Yes Hx Cholecystectomy: Yes - ANESTHESIA Hx Anesthesia: Yes Hx Anesthesia Reactions: No Hx Malignant Hyperthermia: No Meds Allergies/Adverse Reactions: Allergies Allergy/AdvReac Type Severity Reaction Status Date / Time No Known Allergies Allergy Verified 10/17/16 14:59 - Medications Medications: Current Medications Famotidine (Pepcid) 20 mg PO BID [facility] Last Admin: 05/06/17 17:23 Dose: 20 mg Heparin Sodium (Porcine) (Heparin) 5,000 units SC Q12H [facility] Last Admin: 05/06/17 21:04 Dose: 5,000 units Piperacillin Sod/Tazobactam Sod (Zosyn 3.375 Gm Iv Premix) 3.375 gm in 50 mls @ 200 mls/hr IVPB Q6H [facility] Last Admin: 05/06/17 21:03 Dose: 200 mls/hr Vancomycin HCl 1 gm/ Sodium (Chloride) 250 mls @ 166.7 mls/hr IVPB Q24H [facility] Last Admin: 05/05/17 22:29 Dose: 166.7 mls/hr Sodium Chloride (Sodium Chloride 0.9%) 1,000 mls @ 100 mls/hr IV .Q10H [facility] Last Admin: 05/06/17 21:04 Dose: 100 mls/hr Insulin Human NPH (Novolin N) 20 unit SC HS [facility] Insulin Human NPH (Novolin N) 16 unit SC ACB [facility] Insulin Human Regular (Novolin R) 0 unit SC ACHS [facility] PRN Reason: Protocol Last Admin: 05/06/17 17:21 Dose: Not Given Insulin Human Regular (Novolin R) 14 unit SC ACBD [facility] Last Admin: 05/06/17 17:22 Dose: 14 unit Lorazepam (Ativan) 2 mg PO Q4 [facility] PRN Reason: Taper Stop: 05/10/17 10:29 Last Admin: 05/06/17 21:00 Dose: Not Given Lorazepam (Ativan) 1 mg IVP Q6H PRN PRN Reason: Seizure activity Saccharomyces Boulardii (Florastor) 250 mg PO BID [facility] Silver Sulfadiazine (Silvadene 1% 20 Gm) 0 ea TOP DAILY [facility] Physical Exam - Constitutional Appears: No Acute Distress - Head Exam Head Exam: ATRAUMATIC, NORMOCEPHALIC - Eye Exam Eye Exam: Normal appearance - ENT Exam ENT Exam: Mucous Membranes Moist - Neck Exam Neck exam: Positive for: Normal Inspection - Respiratory Exam Respiratory Exam: Clear to Auscultation Bilateral - Cardiovascular Exam Cardiovascular Exam: REGULAR RHYTHM, RRR - GI/Abdominal Exam GI & Abdominal Exam: Normal Bowel Sounds, Soft - Extremities Exam Additional comments: dressing left foot Results - Vital Signs Recent Vital Signs: Last Vital Signs Temp 97.4 F L 05/06/17 15:30 Pulse 78 07/24/17 15:30 Resp 20 05/06/17 15:30 BP 150/91 H 05/06/17 15:30 Pulse Ox 100 05/06/17 15:30 - Labs Result Diagrams: 05/06/17 07:05 05/06/17 07:05 Labs: Laboratory Results - last 24 hr 05/05/17 05/06/17 05/06/17 21:31 06:19 07:05 WBC 4.5 L RBC 3.86 L Hgb 12.7 Hct 38.5 MCV 99.9 H MCH 32.9 H MCHC 32.9 L RDW 13.7 Plt Count 288 MPV 8.9 Neut % (Auto) 55.7 Lymph % (Auto) 25.8 Latimer % (Auto) 11.3 H Eos % (Auto) 6.0 H Baso % (Auto) 1.2 Neut # 2.5 Lymph # 1.2 Latimer # 0.5 Eos # 0.3 Baso # 0.1 ESR 41 H Sodium Potassium Chloride Carbon Dioxide Anion Gap BUN Creatinine Est GFR ( Amer) Est GFR (Non-Af Amer) POC Glucose (mg/dL) 276 H 276 H Random Glucose Calcium Phosphorus Magnesium Total Bilirubin AST ALT Alkaline Phosphatase Total Protein Albumin Globulin Albumin/Globulin Ratio Triglycerides Cholesterol LDL Cholesterol Direct HDL Cholesterol Vitamin B12 Folate 05/06/17 05/06/17 05/06/17 07:05 11:13 13:01 WBC RBC Hgb Hct MCV MCH MCHC RDW Plt Count MPV Neut % (Auto) Lymph % (Auto) Latimer % (Auto) Eos % (Auto) Baso % (Auto) Neut # Lymph # Latimer # Eos # Baso # ESR Sodium 136 Potassium 3.5 L Chloride 97 L Carbon Dioxide 28 Anion Gap 15 BUN 10 Creatinine 0.6 L Est GFR ( Amer) > 60 Est GFR (Non-Af Amer) > 60 POC Glucose (mg/dL) 368 H Random Glucose 265 H Calcium 8.4 L Phosphorus 2.3 L Magnesium 1.7 Total Bilirubin 0.8 AST 12 L ALT 21 Alkaline Phosphatase 71 Total Protein 5.9 L Albumin 2.8 L Globulin 3.0 Albumin/Globulin Ratio 0.9 L Triglycerides 109 D Cholesterol 151 LDL Cholesterol Direct 86 HDL Cholesterol 53 Vitamin B12 346 Folate 8.9 05/06/17 16:15 WBC RBC Hgb Hct MCV MCH MCHC RDW Plt Count MPV Neut % (Auto) Lymph % (Auto) Latimer % (Auto) Eos % (Auto) Baso % (Auto) Neut # Lymph # Latimer # Eos # Baso # ESR Sodium Potassium Chloride Carbon Dioxide Anion Gap BUN Creatinine Est GFR ( Amer) Est GFR (Non-Af Amer) POC Glucose (mg/dL) 261 H Random Glucose Calcium Phosphorus Magnesium Total Bilirubin AST ALT Alkaline Phosphatase Total Protein Albumin Globulin Albumin/Globulin Ratio Triglycerides Cholesterol LDL Cholesterol Direct HDL Cholesterol Vitamin B12 Folate Assessment & Plan (1) Cellulitis of left leg Status: Acute (2) Diabetic foot ulcers Status: Acute (3) Diabetic infection of left foot Assessment and Plan: awaiting MRi needed Status: Acute
--- NOTE | 2017-05-06 22:41 | PN ---
ENDOCRINOLOGY FOLLOWUP NOTE LOCATION: Room 655. SUBJECTIVE: This is a 51-year-old male with recent uncontrolled type 2 insulin requiring diabetes, presenting he with left lower extremity cellulitis and neuropathic leg ulceration, and is being followed closely for metabolic management. His glycemic levels are fluctuating as noted with glucose values today ranging from 276 to 368 mg/dL. LABORATORY DATA: His latest chemistry showed a BUN of 10, sodium of 136, potassium of 3.5, chloride of 97, CO2 of 28, glucose of 265 and creatinine of 0.6. IMPRESSION AND PLAN: So, at this time, we will modify his basal and bolus insulin regimen and increase the NPH to 20 units subcutaneous at bedtime daily to start tonight. We will increase the NPH in the morning to 16 units before breakfast as ordered. We will also increase the regular insulin to 14 unit subcutaneous of b.i.d. before meals to start tonight as ordered. We will continue the low-dose correction scale using regular insulin as ordered. We will follow and advise accordingly. Celia Mcconnell MD
[2017-05-07] MEDS: Piperacill/Tazo 3.375gm in Dex 3.375 GM/50 ML BAG IVPB SCH ×2 (03:58→10:25)
[2017-05-07 06:55] LABS: BASO # 0.1 K/uL (0.0-0.2); EOS # 0.3 K/uL (0.0-0.7); EOS % 5.5 % (0.0-4.0); HEMATOCRIT 37.2 % (35.0-51.0); LYMPH # 1.5 K/uL (1.0-4.3); LYMPH % 31.4 % (20.0-40.0); MEAN CELL VOLUME 99.4 fL (80.0-94.0); MEAN CORPUSCULAR HEMOGLOBIN 32.8 pg (27.0-31.0); MEAN PLATELET VOLUME 8.3 fL (7.2-11.7); MONO # 0.5 K/uL (0.0-0.8); MONO % 11.2 % (0.0-10.0); NRBC % 0.1 % (0.0-2.0); RED CELL DISTRIBUTION WIDTH 13.6 % (11.5-14.5); WHITE BLOOD COUNT 4.9 K/uL (4.8-10.8)
--- NOTE | 2017-05-07 07:13 | CP.PCM.PN ---
<Dion Cosby - Last Filed: 05/07/17 18:07> Subjective - Date & Time of Evaluation Date of Evaluation: 05/07/17 Time of Evaluation: 07:10 - Subjective Subjective: PGY-[address] Beth's service Pt seen and examined at bedside. Nursing reports no acute events overnight. Pt slightly agitated this morning, he is packing his bags and saying he might have to leave to fulfill other obligations. He continues to deny pain in the foot today. He states the swelling and redness have decreased since admission. He reports tolerating diet and moving his bowels without difficulty. He denies fever, chills, calf tenderness, chest pain, palpitations, SOB, abdominal pain, nausea, vomiting. Objective - Vital Signs/Intake and Output Vital Signs (last 24 hours): Temp Pulse Resp BP Pulse Ox 97.8 F 86 20 118/68 96 05/07/17 04:00 05/07/17 04:00 05/07/17 04:00 05/07/17 04:00 05/07/17 04:00 Intake and Output: 05/07/17 05/07/17 06:59 18:59 Intake Total 1870 Output Total 700 Balance 1170 - Medications Medications: Current Medications Famotidine (Pepcid) 20 mg PO BID [facility] Last Admin: 05/06/17 17:23 Dose: 20 mg Heparin Sodium (Porcine) (Heparin) 5,000 units SC Q12H [facility] Last Admin: 05/06/17 21:04 Dose: 5,000 units Piperacillin Sod/Tazobactam Sod (Zosyn 3.375 Gm Iv Premix) 3.375 gm in 50 mls @ 200 mls/hr IVPB Q6H [facility] Last Admin: 05/07/17 03:58 Dose: 200 mls/hr Sodium Chloride (Sodium Chloride 0.9%) 1,000 mls @ 100 mls/hr IV .Q10H [facility] Last Admin: 05/06/17 21:04 Dose: 100 mls/hr Vancomycin HCl 1,000 mg/ (Sodium Chloride) 250 mls @ 166.6 mls/hr IVPB Q12 [facility] Insulin Human NPH (Novolin N) 20 unit SC HS [facility] Last Admin: 05/06/17 22:01 Dose: 20 unit Insulin Human NPH (Novolin N) 16 unit SC ACB [facility] Insulin Human Regular (Novolin R) 0 unit SC ACHS [facility] PRN Reason: Protocol Last Admin: 05/06/17 21:48 Dose: Not Given Insulin Human Regular (Novolin R) 14 unit SC ACBD [facility] Last Admin: 05/06/17 17:22 Dose: 14 unit Lorazepam (Ativan) 2 mg PO Q4 [facility] PRN Reason: Taper Stop: 05/10/17 10:29 Last Admin: 05/07/17 04:21 Dose: Not Given Lorazepam (Ativan) 1 mg IVP Q6H [facility] PRN Reason: Seizure activity Saccharomyces Boulardii (Florastor) 250 mg PO BID [facility] Silver Sulfadiazine (Silvadene 1% 20 Gm) 0 ea TOP DAILY [facility] - Labs Labs: 05/07/17 06:43 05/06/17 07:05 - Constitutional Appears: Non-toxic, No Acute Distress - Head Exam Head Exam: ATRAUMATIC, NORMAL INSPECTION, NORMOCEPHALIC - Eye Exam Eye Exam: EOMI, Normal appearance Pupil Exam: PERRL - ENT Exam ENT Exam: Mucous Membranes Moist - Neck Exam Neck Exam: Full ROM - Respiratory Exam Respiratory Exam: Clear to Ausculation Bilateral, NORMAL BREATHING PATTERN. absent: Accessory Muscle Use, Rales, Rhonchi, Wheezes - Cardiovascular Exam Cardiovascular Exam: REGULAR RHYTHM, +S1, +S2 - GI/Abdominal Exam GI & Abdominal Exam: Soft, Normal Bowel Sounds. absent: Tenderness - Extremities Exam Additional comments: left foot two ulcers one ulcer between first and second toe 2nd wound on bottom left side of foot Left leg warmer to touch than right DP/PT pulses palpated, weaker on left Light touch diminished on L5-S1 dermatome on plantar surface of left foot Reports no pain on palpation of wound sites Diminishing ~3 cm rash on left leg - denies pain at site - Back Exam Back Exam: absent: CVA tenderness (L), CVA tenderness (R) - Neurological Exam Neurological Exam: Alert, Awake, Oriented x3 Additional comments: No tremor or tongue fasciculations signaling DTs - Psychiatric Exam Psychiatric exam: Normal Affect, Normal Mood - Skin Skin Exam: Dry, Normal Color, Warm Assessment and Plan - Assessment and Plan (Free Text) Plan: Left Foot Penetrating Wound Admit to Med/Surg Floor Hx of Diabetic ulcer on same foot in October - MRI on prior admission of left foot (10/24/16): Scale muscle and subcutaneous inflammatory chagnes at plantar aspect of distal left foot at level of 4th/5th metatarsal bones and toes. No evidence of osteomyelitis. - Left foot wound culture on prior admission (MRSA, beta hemolytic strep group B ) - Prior hx of osteomyelitis on RIGHT foot XR Left foot (05/04/17): No acute fractures nor obvious cortical destructive changes however early osteomyelitis not excluded. Suspect mild soft tissue swelling of left great toe. Questionable mild soft tissue swelling at level of metacarpals and MTP joints. R/o cellulitis. F/u MRI for further evaluation if necessary (see full report) XR Left Tib/Fib (05/04/17): No evidence acute fracture or dislocation. Early osteomyelitis cannot be excluded completely. Questionable mild cellulitis. Extensive vascular calcifications. f/u with MRI if concern for osteomyelitis ( see full report). MRI of left foot (05/06/17): Prominent signal abnormality seen at head of 4th metatarsal bone with increased STIR and patchy decreased T1 signal. May represent underlying infectious or inflammatory changes. Mild edema at base of 4th proximal phalanx, nonspecific. Correlate clinically. Degenerative changes noted at 1st interphalangeal joint space with some minimal osteochondral change. Mild nonspecific reactive edema at 1st distal phalanx with increased STIR signal and decreased T1 signal which is non-specific, but inflammatory changes cannot be entirely excluded. Mild non-specific reactive edema at 5th middle and distal phalanges which may correlate with failure of fat suppression. No gross T1 signal abnomrality at this level. Focal signal abnormality seen with the posterior navicular bone demonstrating patchy decreased T1 signal and increased STIR signal which may represent some osteochondral change. Clinical correlation. Moderate hallux valgus deformity. Bipartite medial sesamoid bone. Prominent vascular calcifications. Vancomycin 1g and Zosyn 3.375g given in ED Vancomycin 1g IV Daily (first dose 05/05/17) Zosyn 3.375g IV q6 (first dose 05/05/17) Podiatry consult- Dr. Hernandez, help appreciated - MRI LLE shows signal abnormality of 4th met head,1st interspace, middle and distal 5th phalanges - wound cx results showing prelim gram neg rods, klebsiella pneumoniae - recommend ID consult ID: Dr Soliz, hermes appreciated - f/u reccs ESR 41 blood cultures: no growth x 48 hrs x 2 wound cultures (05/04/17): gram negative mela , group G streptococcus wound culture (05/05/17): gram negative mela Uncontrolled Type 2 diabetes Mellitus A1C : 14.3 - range of 10.9 -13 over past 4 years of admissions Novolin low sliding scale coverage Diabetic Diet accucheck ACHS Lipid panel: tri 122, T Chol 154, LDL 103, HDL 47 Endocrinology consult: Dr. Mcconnell - increase NPH to 20 units SC HS - increase NPH in AM to 16 units before breakfast - increase regular insulin to 14 unit SC before meals. -continue low dose scale Nutrition consult window cleaner consult with Alana Jefferson, help appreciated Hypertension, chronic Pt normotensive over course, hypertensive today Restart home med Norvasc 10mg PO daily Elevated Blood Alcohol Hx of alcoholism EtOH level on admission: 258 Ativan taper Macrocytic Anemia MCV 99 Vitamin B12 346, Folate 8.9 - context of pt's hx of alcoholism Prophylaxis GI- Pepcid 20mg po BID DVT- heparin 5000 Q12H Diabetic Diet Discussed with Dr. Marv Cosby PGY-1 <Manfred Beth - Last Filed: 06/13/17 10:56> Objective - Vital Signs/Intake and Output Vital Signs (last 24 hours): Temp Pulse Resp BP Pulse Ox 97.6 F 89 20 128/79 98 05/12/17 13:55 05/12/17 13:55 05/12/17 13:55 05/12/17 13:55 05/12/17 13:55 - Labs Labs: 05/12/17 08:04 05/12/17 08:04 Attending/Attestation - Attestation I have personally seen and examined this patient.: Yes I have fully participated in the care of the patient.: Yes I have reviewed all pertinent clinical information, including history, physical exam and plan: Yes Notes (Text): Left Foot Penetrating Wound Hx of Diabetic ulcer on same foot in October - MRI on prior admission of left foot (10/24/16): Scale muscle and subcutaneous inflammatory chagnes at plantar aspect of distal left foot at level of 4th/5th metatarsal bones and toes. No evidence of osteomyelitis. - Left foot wound culture on prior admission (MRSA, beta hemolytic strep group B ) - Prior hx of osteomyelitis on RIGHT foot Vancomycin 1g and Zosyn 3.375g given in ED Vancomycin 1g IV Daily (first dose 05/05/17) Zosyn 3.375g IV q6 (first dose 05/05/17) Podiatry consult- Dr. Hernandez, help appreciated - MRI LLE shows signal abnormality of 4th met head,1st interspace, middle and distal 5th phalanges - wound cx results showing prelim gram neg rods, klebsiella pneumoniae - recommend ID consult ID: Dr Soliz, hermes appreciated - f/u reccs ESR 41 blood cultures: no growth x 48 hrs x 2 wound cultures (05/04/17): gram negative mela , group G streptococcus wound culture (05/05/17): gram negative mela Uncontrolled Type 2 diabetes Mellitus A1C : 14.3 Endocrinology consult: Dr. Mcconnell - increase NPH to 20 units SC HS - increase NPH in AM to 16 units before breakfast - increase regular insulin to 14 unit SC before meals. -continue low dose scale Nutrition consult window cleaner consult with Alana Jefferson, hermes appreciated Hypertension, chronic Pt normotensive over course, hypertensive today Restart home med Norvasc 10mg PO daily Elevated Blood Alcohol Hx of alcoholism EtOH level on admission: 258 Ativan taper Macrocytic Anemia MCV 99 Vitamin B12 346, Folate 8.9 - context of pt's hx of alcoholism
[2017-05-07 07:16] LABS: ALB/GLOB RATIO 0.9 (1.0-2.1); ALKALINE PHOSPHATASE 63 U/L (38-126); ALT/SGPT 18 U/L (21-72); AST/SGOT 13 U/L (17-59); BILIRUBIN,TOTAL 0.4 mg/dL (0.2-1.3); BLOOD UREA NITROGEN 14 mg/dL (9-20); CALCIUM 8.4 mg/dl (8.6-10.4); CARBON DIOXIDE 29 mmol/L (22-30); CHLORIDE 98 mmol/L (98-107); CHOLESTEROL 154 mg/dL (0-199); GFR AFRICAN-AMERICAN > 60; GLUCOSE,RANDOM 388 mg/dL (75-110); MAGNESIUM 1.8 mg/dL (1.6-2.3); PHOSPHOROUS 2.6 mg/dL (2.5-4.5); SODIUM 137 mmol/L (132-148); TOTAL PROTEIN 5.6 g/dL (6.3-8.3)
[2017-05-07] MEDS ORDERED: (Novolin N) Insulin Human Isophane (NPH) 100 u/ml 10 ml vial SC SCH ×2 (07:30→13:43)
--- NOTE | 2017-05-07 08:47 | CP.PCM.PN ---
Subjective - Date & Time of Evaluation Date of Evaluation: 05/07/17 Time of Evaluation: 08:45 - Subjective Subjective: 51 year old male patient seen at bedside for infected left foot 1st interspace wound and plantar wound. Patient seen resting comfortably, AAOx3 and NAD. Patient denies any pain to left foot. Patient denies N/V/F/D/C/SOB/CP. No other pedal complaints at this time. Objective - Vital Signs/Intake and Output Vital Signs (last 24 hours): Temp Pulse Resp BP Pulse Ox 97.5 F L 92 H 21 147/94 H 99 05/07/17 08:12 05/07/17 08:12 05/07/17 08:12 05/07/17 08:12 05/07/17 08:12 Intake and Output: 05/07/17 05/07/17 06:59 18:59 Intake Total 1870 Output Total 700 Balance 1170 - Medications Medications: Current Medications Famotidine (Pepcid) 20 mg PO BID [facility] Last Admin: 05/06/17 17:23 Dose: 20 mg Heparin Sodium (Porcine) (Heparin) 5,000 units SC Q12H [facility] Last Admin: 05/06/17 21:04 Dose: 5,000 units Piperacillin Sod/Tazobactam Sod (Zosyn 3.375 Gm Iv Premix) 3.375 gm in 50 mls @ 200 mls/hr IVPB Q6H [facility] Last Admin: 05/07/17 03:58 Dose: 200 mls/hr Sodium Chloride (Sodium Chloride 0.9%) 1,000 mls @ 100 mls/hr IV .Q10H [facility] Last Admin: 05/06/17 21:04 Dose: 100 mls/hr Vancomycin HCl 1,000 mg/ (Sodium Chloride) 250 mls @ 166.6 mls/hr IVPB Q12 [facility] Insulin Human NPH (Novolin N) 20 unit SC HS [facility] Last Admin: 05/06/17 22:01 Dose: 20 unit Insulin Human NPH (Novolin N) 16 unit SC ACB [facility] Insulin Human Regular (Novolin R) 0 unit SC ACHS [facility] PRN Reason: Protocol Last Admin: 05/06/17 21:48 Dose: Not Given Insulin Human Regular (Novolin R) 14 unit SC ACBD [facility] Last Admin: 05/06/17 17:22 Dose: 14 unit Lorazepam (Ativan) 2 mg PO Q4 [facility] PRN Reason: Taper Stop: 05/10/17 10:29 Last Admin: 05/07/17 08:07 Dose: Not Given Lorazepam (Ativan) 1 mg IVP Q6H [facility] PRN Reason: Seizure activity Saccharomyces Boulardii (Florastor) 250 mg PO BID [facility] Silver Sulfadiazine (Silvadene 1% 20 Gm) 0 ea TOP DAILY [facility] - Labs Labs: 05/07/17 06:43 05/07/17 06:43 - Constitutional Appears: Well, Non-toxic, No Acute Distress - Extremities Exam Additional comments: LLE exam: Derm: Severe maceration noted to L 1st interspace. Ulceration to lateral hallucal base noted, approximately no purulence was expressed. +probe to bone. Approximately 0.8cm x 1.0cm x 0.3cm wound at lateral plantar forefoot, base fibrous no drainage, no malodor, negative probe to bone, edges hyperkeratotic. Vascular: DP and PT pulses 2/4, CFT <3sec, TG warm to warm Neuro: Gross sensation diminished Ortho: No pain on palpation of 1st IS periwound area. No pain on palpation plantarlateral forefoot wound. Extensor substitution hammertoe deformities of digits 2-5. - Neurological Exam Neurological Exam: Alert, Awake, Oriented x3 - Psychiatric Exam Psychiatric exam: Normal Affect, Normal Mood Assessment and Plan - Assessment and Plan (Free Text) Assessment: 51 year old male with L 1st interspace infected ulceration and plantar 4th metatarsal head ulceration secondary to DM Plan: Patient seen and evaluated. Discussed with attending, Dr. Hernandez. Charts, labs, vitals reviewed = WBC WNL @4.9, vital signs stable F/U wound cx -prelim gram neg rods, klebsiella pneumoniae MRI LLE shows signal abnormality of 4th met head,1st interspace, middle and distal 5th phalanges Wound dressed with betadine soaked gauze, 4x4, and kerlix continue IV abx as per ID- appreciate reccs Podiatry will continue to follow while in house
[2017-05-07] MEDS: (Novolin R) Insulin Human Regular 100 units/ml vial SC SCH ×6 (08:51→21:41)
[2017-05-07] MEDS: Saccharomyces Boulardi 250 mg Cap PO SCH ×2 (11:23→17:14)
[2017-05-07] MEDS: Cefepime IV 2 gm in Dextrose 2 GM/100 ML BAG IVPB SCH (17:14)
[2017-05-07] MEDS: (Novolin N) Insulin Human Isophane (NPH) 100 u/ml 10 ml vial SC SCH (21:49)
[2017-05-07] MEDS: Sodium Chloride 0.9% 1,000 ML IV SCH (22:04)
--- NOTE | 2017-05-08 05:23 | PN ---
DATE: 05/07/2017 LOCATION: Room 655. SUBJECTIVE: This is a 51-year-old male with recent uncontrolled type 2 insulin-requiring diabetes, now being followed closely for metabolic management. He is also undergoing IV antibiotic management and debridement for a left lower extremity cellulitis and associated neuropathic ulceration. His *------* lab work are fluctuating as stated and latest chemistry shows a BUN of 14, sodium 137, potassium 4.0, chloride 98, CO2 of 29, glucose 308, and creatinine 0.5. His glucose levels have ranged from 314 to 382 mg/dL. For this time, we will modify once again his basal and bolus insulin regimen and increase the NPH to 30 units subcu at bedtime daily *------*. We will also increase the NPH to 20 units a.c. and breakfast daily as ordered. We will increase his regular insulin to 14 units subcu b.i.d. before meals as ordered. We will obtain serial chemistries and supplement upon as needed. We will follow. Celia Mcconnell MD
[2017-05-08] MEDS: Cefepime IV 2 gm in Dextrose 2 GM/100 ML BAG IVPB SCH ×2 (05:50→17:07)
[2017-05-08 07:34] LABS: BASO % 0.8 % (0.0-2.0); EOS # 0.2 K/uL (0.0-0.7); EOS % 4.9 % (0.0-4.0); HEMATOCRIT 35.9 % (35.0-51.0); LYMPH # 1.8 K/uL (1.0-4.3); MEAN CELL VOLUME 99.2 fL (80.0-94.0); MEAN CORPUSCULAR HEMOGLOBIN 33.1 pg (27.0-31.0); MEAN CORPUSCULAR HGB CONC 33.4 g/dL (33.0-37.0); MEAN PLATELET VOLUME 7.9 fL (7.2-11.7); MONO # 0.6 K/uL (0.0-0.8); MONO % 11.2 % (0.0-10.0); RED CELL DISTRIBUTION WIDTH 13.8 % (11.5-14.5); WHITE BLOOD COUNT 5.1 K/uL (4.8-10.8)
[2017-05-08 07:36] LABS: CHLORIDE 96 mmol/L (98-107)
[2017-05-08 07:37] LABS: POTASSIUM 4.1 mmol/L (3.6-5.2); SODIUM 133 mmol/L (132-148)
[2017-05-08 07:39] LABS: ALB/GLOB RATIO 0.9 (1.0-2.1); ALKALINE PHOSPHATASE 45 U/L (38-126); ALT/SGPT 21 U/L (21-72); AST/SGOT 12 U/L (17-59); BILIRUBIN,TOTAL 0.4 mg/dL (0.2-1.3); BLOOD UREA NITROGEN 13 mg/dL (9-20); CARBON DIOXIDE 29 mmol/L (22-30); GFR AFRICAN-AMERICAN > 60; GLUCOSE,RANDOM 207 mg/dL (75-110); PHOSPHOROUS 3.2 mg/dL (2.5-4.5); TOTAL PROTEIN 5.7 g/dL (6.3-8.3)
[2017-05-08 07:40] LABS: CALCIUM 8.6 mg/dl (8.6-10.4); MAGNESIUM 1.5 mg/dL (1.6-2.3)
--- NOTE | 2017-05-08 07:49 | CP.PCM.PN ---
<Dion Cosby - Last Filed: 05/08/17 17:34> Subjective - Date & Time of Evaluation Date of Evaluation: 05/08/17 Time of Evaluation: 07:40 - Subjective Subjective: PGY-[address] Beth's service Pt seen and examined at bedside. Nursing reports no acute events overnight. Pt denies any complaints this AM. He states he has "no pain" in his foot, and can put weight on it when he walks. It was reinforced to patient by multiple levels of staff that he should continue using insulin, or he is at risk of losing his foot. Pt verbalized his understanding. From nursing staff, daughter at bedside is against insulin therapy "because you can from it." Pt has meeting with nurse educator and nutritional counseling for further education. He denies chest pain, palpitations, abdominal pain, nausea, vomiting, and diarrhea. Objective - Vital Signs/Intake and Output Vital Signs (last 24 hours): Temp Pulse Resp BP Pulse Ox 98.5 F 93 H 20 114/68 96 05/07/17 23:30 05/07/17 23:30 05/07/17 23:30 05/07/17 23:30 05/07/17 23:30 Intake and Output: 05/08/17 05/08/17 06:59 18:59 Intake Total 2360 Balance 2360 - Medications Medications: Current Medications Amlodipine Besylate (Norvasc) 10 mg PO DAILY [facility] Last Admin: 05/07/17 11:23 Dose: 10 mg Famotidine (Pepcid) 20 mg PO BID [facility] Last Admin: 05/07/17 17:13 Dose: 20 mg Heparin Sodium (Porcine) (Heparin) 5,000 units SC Q12H [facility] Last Admin: 05/07/17 21:48 Dose: 5,000 units Sodium Chloride (Sodium Chloride 0.9%) 1,000 mls @ 100 mls/hr IV .Q10H [facility] Last Admin: 05/07/17 22:04 Dose: Not Given Vancomycin HCl 1,000 mg/ (Sodium Chloride) 250 mls @ 166.6 mls/hr IVPB Q12 [facility] Last Admin: 05/07/17 21:48 Dose: 166.6 mls/hr Cefepime HCl (Maxipime Iv 2 Gm Premix) 2 gm in 100 mls @ 200 mls/hr IVPB Q12H [facility] Stop: 05/12/17 17:01 Last Admin: 05/08/17 05:50 Dose: 200 mls/hr Insulin Human NPH (Novolin N) 30 unit SC HS [facility] Last Admin: 05/07/17 21:49 Dose: 30 unit Insulin Human NPH (Novolin N) 20 unit SC ACB [facility] Insulin Human Regular (Novolin R) 0 unit SC ACHS [facility] PRN Reason: Protocol Last Admin: 05/07/17 21:41 Dose: Not Given Insulin Human Regular (Novolin R) 14 unit SC ACBD [facility] Last Admin: 05/07/17 17:12 Dose: 14 unit Lorazepam (Ativan) 1 mg PO Q4 [facility] PRN Reason: Taper Stop: 05/10/17 10:29 Last Admin: 05/08/17 04:00 Dose: Not Given Lorazepam (Ativan) 1 mg IVP Q6H PRN PRN Reason: Seizure activity Saccharomyces Boulardii (Florastor) 250 mg PO BID [facility] Last Admin: 05/07/17 17:14 Dose: 250 mg Silver Sulfadiazine (Silvadene 1% 20 Gm) 0 ea TOP DAILY [facility] - Labs Labs: 05/08/17 06:53 05/07/17 06:43 - Additional Findings Additional findings: - Constitutional Appears: Non-toxic, No Acute Distress - Head Exam Head Exam: ATRAUMATIC, NORMAL INSPECTION, NORMOCEPHALIC - Eye Exam Eye Exam: EOMI, Normal appearance Pupil Exam: PERRL - ENT Exam ENT Exam: Mucous Membranes Moist - Neck Exam Neck Exam: Full ROM - Respiratory Exam Respiratory Exam: Clear to Ausculation Bilateral, NORMAL BREATHING PATTERN. absent: Accessory Muscle Use, Rales, Rhonchi, Wheezes - Cardiovascular Exam Cardiovascular Exam: REGULAR RHYTHM, +S1, +S2 - GI/Abdominal Exam GI & Abdominal Exam: Soft, Normal Bowel Sounds. absent: Tenderness - Extremities Exam Additional comments: left foot two ulcers: one ulcer between first and second toe 2nd wound on bottom left side of foot Left leg warmer to touch than right DP/PT pulses palpated: pulses 2/4 Light touch diminished on L5-S1 dermatome on plantar surface of left foot Proprioception intact Reports no pain on palpation of wound sites Assessment and Plan - Assessment and Plan (Free Text) Plan: Left Foot Penetrating Wound Admit to Med/Surg Floor Hx of Diabetic ulcer on same foot in October - MRI on prior admission of left foot (10/24/16): Scale muscle and subcutaneous inflammatory chagnes at plantar aspect of distal left foot at level of 4th/5th metatarsal bones and toes. No evidence of osteomyelitis. - Left foot wound culture on prior admission (MRSA, beta hemolytic strep group B ) - Prior hx of osteomyelitis on RIGHT foot XR Left foot (05/04/17): No acute fractures nor obvious cortical destructive changes however early osteomyelitis not excluded. Suspect mild soft tissue swelling of left great toe. Questionable mild soft tissue swelling at level of metacarpals and MTP joints. R/o cellulitis. F/u MRI for further evaluation if necessary (see full report) XR Left Tib/Fib (05/04/17): No evidence acute fracture or dislocation. Early osteomyelitis cannot be excluded completely. Questionable mild cellulitis. Extensive vascular calcifications. f/u with MRI if concern for osteomyelitis ( see full report). MRI of left foot (05/06/17): Prominent signal abnormality seen at head of 4th metatarsal bone with increased STIR and patchy decreased T1 signal. May represent underlying infectious or inflammatory changes. Mild edema at base of 4th proximal phalanx, nonspecific. Correlate clinically. Degenerative changes noted at 1st interphalangeal joint space with some minimal osteochondral change. Mild nonspecific reactive edema at 1st distal phalanx with increased STIR signal and decreased T1 signal which is non-specific, but inflammatory changes cannot be entirely excluded. Mild non-specific reactive edema at 5th middle and distal phalanges which may correlate with failure of fat suppression. No gross T1 signal abnomrality at this level. Focal signal abnormality seen with the posterior navicular bone demonstrating patchy decreased T1 signal and increased STIR signal which may represent some osteochondral change. Clinical correlation. Moderate hallux valgus deformity. Bipartite medial sesamoid bone. Prominent vascular calcifications. Vancomycin 1g and Zosyn 3.375g given in ED Vancomycin 1g IV Daily (first dose 05/05/17) Zosyn 3.375g IV q6 (first dose 05/05/17) Podiatry consult- Dr. Hernandez, help appreciated - MRI LLE shows signal abnormality of 4th met head,1st interspace, middle and distal 5th phalanges - wound cx results showing prelim gram neg rods, klebsiella pneumoniae - recommend ID consult ID: Dr Soliz, hermes appreciated - Cefepime 2gm IV q12H ESR 41 blood cultures: no growth x 72 hrs x 2 wound cultures (05/04/17): Klebsiella pneumoniae , group G streptococcus, Proteus mirabilis wound culture (05/05/17): Proteus mirabilis Uncontrolled Type 2 diabetes Mellitus Improving control on this admission (range 314-382) A1C : 14.3 - range of 10.9 -13 over past 4 years of admissions Novolin low sliding scale coverage Diabetic Diet accucheck ACHS Lipid panel: tri 122, T Chol 154, LDL 103, HDL 47 Endocrinology consult: Dr. Mcconnell - increase NPH to 30 units SC HS - increase NPH in AM to 20 units before breakfast - increase regular insulin to 14 unit SC before meals. -continue low dose scale Nutrition consult nurses educator consult with Alana Jefferson, help appreciated Hypertension, chronic Pt normotensive over course, hypertensive today Discontinue Norvasc 10mg PO daily Start Lisinopril 5mg PO Daily for renal protective benefits in diabetic Elevated Blood Alcohol Hx of alcoholism EtOH level on admission: 258 Ativan taper Macrocytic Anemia MCV 99 Vitamin B12 346, Folate 8.9 - context of pt's hx of alcoholism Prophylaxis GI- Pepcid 20mg po BID DVT- heparin 5000 Q12H Diabetic Diet Discussed with Dr. Kirit Cosby PGY-1 <Manfred Beth - Last Filed: 06/13/17 10:57> Objective - Vital Signs/Intake and Output Vital Signs (last 24 hours): Temp Pulse Resp BP Pulse Ox 97.6 F 89 20 128/79 98 05/12/17 13:55 05/12/17 13:55 05/12/17 13:55 05/12/17 13:55 05/12/17 13:55 - Labs Labs: 05/12/17 08:04 05/12/17 08:04 Attending/Attestation - Attestation I have personally seen and examined this patient.: Yes I have fully participated in the care of the patient.: Yes I have reviewed all pertinent clinical information, including history, physical exam and plan: Yes Notes (Text): Left Foot Penetrating Wound Hx of Diabetic ulcer on same foot in October - MRI on prior admission of left foot (10/24/16): Scale muscle and subcutaneous inflammatory chagnes at plantar aspect of distal left foot at level of 4th/5th metatarsal bones and toes. No evidence of osteomyelitis. - Left foot wound culture on prior admission (MRSA, beta hemolytic strep group B ) - Prior hx of osteomyelitis on RIGHT foot Vancomycin 1g and Zosyn 3.375g given in ED Vancomycin 1g IV Daily (first dose 05/05/17) Zosyn 3.375g IV q6 (first dose 05/05/17) Podiatry consult- Dr. Hernandez, hermes appreciated - MRI LLE shows signal abnormality of 4th met head,1st interspace, middle and distal 5th phalanges - wound cx results showing prelim gram neg rods, klebsiella pneumoniae - recommend ID consult ID: Dr Soliz, hermes appreciated - f/u reccs ESR 41 blood cultures: no growth x 48 hrs x 2 wound cultures (05/04/17): gram negative mela , group G streptococcus wound culture (05/05/17): gram negative mela Uncontrolled Type 2 diabetes Mellitus A1C : 14.3 Endocrinology consult: Dr. Mcconnell - increase NPH to 20 units SC HS - increase NPH in AM to 16 units before breakfast - increase regular insulin to 14 unit SC before meals. -continue low dose scale Nutrition consult nurses educator consult with Alana Jefferson, hermes appreciated Hypertension, chronic Pt normotensive over course, hypertensive today Restart home med Norvasc 10mg PO daily Elevated Blood Alcohol Hx of alcoholism EtOH level on admission: 258 Ativan taper Macrocytic Anemia MCV 99 Vitamin B12 346, Folate 8.9 - context of pt's hx of alcoholism
[2017-05-08] MEDS: (Novolin R) Insulin Human Regular 100 units/ml vial SC SCH ×6 (08:16→21:37)
[2017-05-08] MEDS: (Novolin N) Insulin Human Isophane (NPH) 100 u/ml 10 ml vial SC SCH ×2 (08:29→21:50)
[2017-05-08] MEDS: Sodium Chloride 0.9% 1,000 ML IV SCH ×3 (08:30→21:49)
[2017-05-08] MEDS ORDERED: Magnesium Sulfate 1 gm in D5W 1 GM/100 ML BAG IVPB ONE (10:00)
[2017-05-08] MEDS: Saccharomyces Boulardi 250 mg Cap PO SCH ×2 (10:36→17:07)
[2017-05-08] MEDS: Silver Sulfadiazine 1% Cream (20 gm) TOP SCH (12:08)
--- NOTE | 2017-05-08 12:18 | CP.PCM.PN ---
Subjective - Date & Time of Evaluation Date of Evaluation: 05/08/17 Time of Evaluation: 12:15 - Subjective Subjective: 51 year old male patient seen at bedside for infected left foot 1st interspace wound and plantar wound. Patient seen resting comfortably, AAOx3 and NAD. Patient denies any pain to left foot. Patient denies N/V/F/D/C/SOB/CP. No other pedal complaints at this time. Patient states that he has been cleaning the wounds himself with water and betadine. Objective - Vital Signs/Intake and Output Vital Signs (last 24 hours): Temp Pulse Resp BP Pulse Ox 98.0 F 61 18 135/80 97 05/08/17 07:59 05/08/17 07:59 05/08/17 07:59 05/08/17 07:59 05/08/17 07:59 Intake and Output: 05/08/17 05/08/17 06:59 18:59 Intake Total 2360 Balance 2360 - Medications Medications: Current Medications Amlodipine Besylate (Norvasc) 10 mg PO DAILY [facility] Last Admin: 05/08/17 10:36 Dose: 10 mg Famotidine (Pepcid) 20 mg PO BID [facility] Last Admin: 05/08/17 10:36 Dose: 20 mg Heparin Sodium (Porcine) (Heparin) 5,000 units SC Q12H [facility] Last Admin: 05/08/17 10:41 Dose: 5,000 units Sodium Chloride (Sodium Chloride 0.9%) 1,000 mls @ 100 mls/hr IV .Q10H [facility] Last Admin: 05/08/17 08:30 Dose: Not Given Vancomycin HCl 1,000 mg/ (Sodium Chloride) 250 mls @ 166.6 mls/hr IVPB Q12 [facility] Last Admin: 05/07/17 21:48 Dose: 166.6 mls/hr Cefepime HCl (Maxipime Iv 2 Gm Premix) 2 gm in 100 mls @ 200 mls/hr IVPB Q12H [facility] Stop: 05/12/17 17:01 Last Admin: 05/08/17 05:50 Dose: 200 mls/hr Insulin Human NPH (Novolin N) 30 unit SC HS [facility] Last Admin: 05/07/17 21:49 Dose: 30 unit Insulin Human NPH (Novolin N) 20 unit SC ACB [facility] Last Admin: 05/08/17 08:29 Dose: 20 unit Insulin Human Regular (Novolin R) 0 unit SC ACHS [facility] PRN Reason: Protocol Last Admin: 05/08/17 08:16 Dose: Not Given Insulin Human Regular (Novolin R) 14 unit SC ACBD [facility] Last Admin: 05/08/17 08:30 Dose: 14 unit Lorazepam (Ativan) 1 mg PO Q8 [facility] PRN Reason: Taper Stop: 05/10/17 10:29 Last Admin: 05/08/17 08:31 Dose: Not Given Lorazepam (Ativan) 1 mg IVP Q6H PRN PRN Reason: Seizure activity Saccharomyces Boulardii (Florastor) 250 mg PO BID [facility] Last Admin: 05/08/17 10:36 Dose: 250 mg Silver Sulfadiazine (Silvadene 1% 20 Gm) 0 ea TOP DAILY [facility] Last Admin: 05/08/17 12:08 Dose: 1 appl - Labs Labs: 05/08/17 06:53 05/08/17 06:53 - Constitutional Appears: Well, Non-toxic, No Acute Distress - Extremities Exam Additional comments: LLE exam: Derm: Severe maceration noted to L 1st interspace. Ulceration to lateral hallucal base noted, no purulence was expressed. negative probe to bone, moderate malodor. Approximately 0.8cm x 1.0cm x 0.3cm wound at lateral plantar forefoot, base fibrous no drainage, no malodor, negative probe to bone, edges hyperkeratotic. Vascular: DP and PT pulses 2/4, CFT <3sec, TG warm to warm Neuro: Gross sensation diminished Ortho: No pain on palpation of 1st IS periwound area. No pain on palpation plantarlateral forefoot wound. Extensor substitution hammertoe deformities of digits 2-5. - Neurological Exam Neurological Exam: Alert, Awake, Oriented x3 - Psychiatric Exam Psychiatric exam: Normal Affect, Normal Mood Assessment and Plan - Assessment and Plan (Free Text) Assessment: 51 year old male with L 1st interspace infected ulceration and plantar 4th metatarsal head ulceration secondary to DM Plan: Patient seen and evaluated. Discussed with attending, Dr. Hernandez. Charts, labs, vitals reviewed = WBC WNL @5.1, vital signs stable wound cx: proteus mirabilis MRI LLE shows signal abnormality of 4th met head,1st interspace, middle and distal 5th phalanges debridement of hyperkeratotic tissue of ulceration sub met 4 of left foot using sterile #10 blade down to level of epidermis Wound dressed with betadine soaked gauze, 4x4, and kerlix continue IV abx as per ID- appreciate reccs Podiatry will continue to follow while in house
--- NOTE | 2017-05-09 02:34 | PN ---
DATE: 05/08/2017 LOCATION: Room 665. SUBJECTIVE: This is a 51-year-old male with recent uncontrolled type 2 insulin-requiring diabetes now being followed closely for metabolic management. His glycemic levels are fluctuating and the latest glucose levels today have ranged from 314 to 382 mg/dL. LABORATORY DATA: The latest chemistry showed a BUN of 14, sodium 137, potassium 4.0, chloride 98, CO2 of 29, glucose 308, and creatinine 0.5. ASSESSMENT AND PLAN: So at this time, we will modify his basal and bolus insulin regimen and increase the Novolin NPH to 30 units at bedtime daily with 20 units a.c. breakfast daily as ordered. We will also increase the regular insulin to 14 units subcutaneously b.i.d. before meals as ordered. We will obtain serial chemistries and supplement accordingly as needed. We will actually sign off from the endocrine care at this point and would recommend the same dosing regimen as given. We will follow with you. Celia Mcconnell MD
[2017-05-09] MEDS: Sodium Chloride 0.9% 1,000 ML IV SCH ×4 (04:30→23:00)
[2017-05-09] MEDS: Cefepime IV 2 gm in Dextrose 2 GM/100 ML BAG IVPB SCH ×2 (05:45→17:27)
[2017-05-09 06:58] LABS: ALB/GLOB RATIO 1.2 (1.0-2.1); ALKALINE PHOSPHATASE 59 U/L (38-126); ALT/SGPT 23 U/L (21-72); AST/SGOT 31 U/L (17-59); BILIRUBIN,TOTAL < 0.1 mg/dL (0.2-1.3); BLOOD UREA NITROGEN 16 mg/dL (9-20); CALCIUM 9.3 mg/dl (8.6-10.4); CARBON DIOXIDE 30 mmol/L (22-30); CHLORIDE 95 mmol/L (98-107); GFR AFRICAN-AMERICAN > 60; GLUCOSE,RANDOM 116 mg/dL (75-110); MAGNESIUM 1.9 mg/dL (1.6-2.3); PHOSPHOROUS 3.3 mg/dL (2.5-4.5); SODIUM 138 mmol/L (132-148); TOTAL PROTEIN 6.4 g/dL (6.3-8.3)
--- NOTE | 2017-05-09 07:14 | CP.PCM.PN ---
<Dion Cosby - Last Filed: 05/09/17 13:21> Subjective - Date & Time of Evaluation Date of Evaluation: 05/09/17 Time of Evaluation: 07:09 - Subjective Subjective: PGY-[address] Beth's service Patient was seen and examined at bedside today in NAD lotioning his thighs. No overnight events. He reports improvement from yesterday, which he attributes to much better glucose control during this stay. Reaffirms dedication to keeping his BG controlled once discharged. Had a BM this AM, reports no urinary problems. Denies f/c, n/v/c/d, new skin changes. He denies chest pain, palpitations, abdominal pain, headache, dizziness, SOB. Objective - Vital Signs/Intake and Output Vital Signs (last 24 hours): Temp Pulse Resp BP Pulse Ox 98.2 F 90 18 142/75 98 05/08/17 15:34 05/08/17 15:34 05/08/17 15:34 05/08/17 15:34 05/08/17 15:34 Intake and Output: 05/09/17 05/09/17 06:59 18:59 Intake Total 2044 Balance 2044 - Medications Medications: Current Medications Famotidine (Pepcid) 20 mg PO BID [facility] Last Admin: 05/08/17 17:07 Dose: 20 mg Heparin Sodium (Porcine) (Heparin) 5,000 units SC Q12H [facility] Last Admin: 05/08/17 21:48 Dose: 5,000 units Sodium Chloride (Sodium Chloride 0.9%) 1,000 mls @ 100 mls/hr IV .Q10H [facility] Last Admin: 05/09/17 04:30 Dose: Not Given Vancomycin HCl 1,000 mg/ (Sodium Chloride) 250 mls @ 166.6 mls/hr IVPB Q12 [facility] Last Admin: 05/08/17 21:47 Dose: 166.6 mls/hr Cefepime HCl (Maxipime Iv 2 Gm Premix) 2 gm in 100 mls @ 200 mls/hr IVPB Q12H [facility] Stop: 05/12/17 17:01 Last Admin: 05/09/17 05:45 Dose: 200 mls/hr Insulin Human NPH (Novolin N) 30 unit SC [facility] Last Admin: 05/08/17 21:50 Dose: 30 unit Insulin Human NPH (Novolin N) 20 unit SC [facility] Last Admin: 05/08/17 08:29 Dose: 20 unit Insulin Human Regular (Novolin R) 0 unit SC A[facility] PRN Reason: Protocol Last Admin: 05/08/17 21:37 Dose: Not Given Insulin Human Regular (Novolin R) 14 unit SC ACBD [facility] Last Admin: 05/08/17 17:07 Dose: 14 unit Lisinopril (Zestril) 5 mg PO DAILY [facility] Lorazepam (Ativan) 1 mg PO Q8 [facility] PRN Reason: Taper Stop: 05/10/17 10:29 Last Admin: 05/09/17 05:57 Dose: Not Given Lorazepam (Ativan) 1 mg IVP Q6H PRN PRN Reason: Seizure activity Saccharomyces Boulardii (Florastor) 250 mg PO BID [facility] Last Admin: 05/08/17 17:07 Dose: 250 mg Silver Sulfadiazine (Silvadene 1% 20 Gm) 0 ea TOP DAILY [facility] Last Admin: 05/08/17 12:08 Dose: 1 appl - Labs Labs: 05/08/17 06:53 05/09/17 06:36 - Additional Findings Additional findings: - Constitutional Appears: Non-toxic, No Acute Distress - Head Exam Head Exam: ATRAUMATIC, NORMAL INSPECTION, NORMOCEPHALIC - Eye Exam Eye Exam: EOMI, Normal appearance Pupil Exam: PERRL - ENT Exam ENT Exam: Mucous Membranes Moist - Neck Exam Neck Exam: Full ROM - Respiratory Exam Respiratory Exam: Clear to Ausculation Bilateral, NORMAL BREATHING PATTERN. absent: Accessory Muscle Use, Rales, Rhonchi, Wheezes - Cardiovascular Exam Cardiovascular Exam: REGULAR RHYTHM, +S1, +S2 - GI/Abdominal Exam GI & Abdominal Exam: Soft, Normal Bowel Sounds. absent: Tenderness - Extremities Exam Additional comments: left foot two ulcers: one ulcer between first and second toe 2nd wound on bottom left side of foot Left leg warmer to touch than right DP/PT pulses palpated: pulses 2/4 Light touch diminished on L5-S1 dermatome on plantar surface of left foot Proprioception intact Reports no pain on palpation of wound sites Assessment and Plan - Assessment and Plan (Free Text) Plan: OSteomyelitis Admit to Med/Surg Floor Hx of Diabetic ulcer on same foot in October - MRI on prior admission of left foot (10/24/16): Scale muscle and subcutaneous inflammatory chagnes at plantar aspect of distal left foot at level of 4th/5th metatarsal bones and toes. No evidence of osteomyelitis. - Left foot wound culture on prior admission (MRSA, beta hemolytic strep group B ) - Prior hx of osteomyelitis on RIGHT foot XR Left foot (05/04/17): No acute fractures nor obvious cortical destructive changes however early osteomyelitis not excluded. Suspect mild soft tissue swelling of left great toe. Questionable mild soft tissue swelling at level of metacarpals and MTP joints. R/o cellulitis. F/u MRI for further evaluation if necessary (see full report) XR Left Tib/Fib (05/04/17): No evidence acute fracture or dislocation. Early osteomyelitis cannot be excluded completely. Questionable mild cellulitis. Extensive vascular calcifications. f/u with MRI if concern for osteomyelitis ( see full report). MRI of left foot (05/06/17): Prominent signal abnormality seen at head of 4th metatarsal bone with increased STIR and patchy decreased T1 signal. May represent underlying infectious or inflammatory changes. Mild edema at base of 4th proximal phalanx, nonspecific. Correlate clinically. Degenerative changes noted at 1st interphalangeal joint space with some minimal osteochondral change. Mild nonspecific reactive edema at 1st distal phalanx with increased STIR signal and decreased T1 signal which is non-specific, but inflammatory changes cannot be entirely excluded. Mild non-specific reactive edema at 5th middle and distal phalanges which may correlate with failure of fat suppression. No gross T1 signal abnomrality at this level. Focal signal abnormality seen with the posterior navicular bone demonstrating patchy decreased T1 signal and increased STIR signal which may represent some osteochondral change. Clinical correlation. Moderate hallux valgus deformity. Bipartite medial sesamoid bone. Prominent vascular calcifications. Vancomycin 1g and Zosyn 3.375g given in ED Vancomycin 1g IV Daily ( 05/05/17) Discontinued Zosyn 3.375g IV q6 (course 05/05/17 -05/07) Podiatry consult- Dr. Hernandez, help appreciated - MRI LLE shows signal abnormality of 4th met head,1st interspace, middle and distal 5th phalanges - wound cx results showing prelim gram neg rods, klebsiella pneumoniae - recommend ID consult ID: Dr Soliz, hermes appreciated - Cefepime 2gm IV q12H ESR 41 blood cultures: no growth x 72 hrs x 2 wound cultures (05/04/17): Klebsiella pneumoniae , group G streptococcus, Proteus mirabilis wound culture (05/05/17): Proteus mirabilis Uncontrolled Type 2 diabetes Mellitus Improving control on this admission (range 124-203) A1C : 14.3 - range of 10.9 -13 over past 4 years of admissions Novolin low sliding scale coverage Diabetic Diet accucheck ACHS Lipid panel: tri 122, T Chol 154, LDL 103, HDL 47 Endocrinology consult: Dr. Mcconnell - Has signed off; Regimen below is appropriate for discharge - increase NPH to 30 units SC HS - increase NPH in AM to 20 units before breakfast - increase regular insulin to 14 unit SC before meals. -continue low dose scale Nutrition consult conservation educator consult with Alana Jefferson, help appreciated Hypertension, chronic Pt normotensive over course, hypertensive today Discontinue Norvasc 10mg PO daily Start Lisinopril 5mg PO Daily for renal protective benefits in diabetic Elevated Blood Alcohol Hx of alcoholism EtOH level on admission: 258 Ativan taper Macrocytic Anemia MCV 99 Vitamin B12 346, Folate 8.9 - context of pt's hx of alcoholism Prophylaxis GI- Pepcid 20mg po BID DVT- heparin 5000 Q12H Diabetic Diet Discussed with Dr. Kirit Cosby PGY-1 <Manfred Beth - Last Filed: 06/13/17 10:57> Objective - Vital Signs/Intake and Output Vital Signs (last 24 hours): Temp Pulse Resp BP Pulse Ox 97.6 F 89 20 128/79 98 05/12/17 13:55 05/12/17 13:55 05/12/17 13:55 05/12/17 13:55 05/12/17 13:55 - Labs Labs: 05/12/17 08:04 05/12/17 08:04 Attending/Attestation - Attestation I have personally seen and examined this patient.: Yes I have fully participated in the care of the patient.: Yes I have reviewed all pertinent clinical information, including history, physical exam and plan: Yes Notes (Text): Left Foot Penetrating Wound Hx of Diabetic ulcer on same foot in October - MRI on prior admission of left foot (10/24/16): Scale muscle and subcutaneous inflammatory chagnes at plantar aspect of distal left foot at level of 4th/5th metatarsal bones and toes. No evidence of osteomyelitis. - Left foot wound culture on prior admission (MRSA, beta hemolytic strep group B ) - Prior hx of osteomyelitis on RIGHT foot Vancomycin 1g and Zosyn 3.375g given in ED Vancomycin 1g IV Daily (first dose 05/05/17) Zosyn 3.375g IV q6 (first dose 05/05/17) Podiatry consult- Dr. Hernandez, hermes appreciated - MRI LLE shows signal abnormality of 4th met head,1st interspace, middle and distal 5th phalanges - wound cx results showing prelim gram neg rods, klebsiella pneumoniae - recommend ID consult ID: Dr Soliz, hermes appreciated - f/u reccs ESR 41 blood cultures: no growth x 48 hrs x 2 wound cultures (05/04/17): gram negative mela , group G streptococcus wound culture (05/05/17): gram negative mela Uncontrolled Type 2 diabetes Mellitus A1C : 14.3 Endocrinology consult: Dr. Mcconnell - increase NPH to 20 units SC HS - increase NPH in AM to 16 units before breakfast - increase regular insulin to 14 unit SC before meals. -continue low dose scale Nutrition consult conservation educator consult with Alana Jefferson, hermes appreciated Hypertension, chronic Pt normotensive over course, hypertensive today Restart home med Norvasc 10mg PO daily Elevated Blood Alcohol Hx of alcoholism EtOH level on admission: 258 Ativan taper Macrocytic Anemia MCV 99 Vitamin B12 346, Folate 8.9 - context of pt's hx of alcoholism
[2017-05-09 07:18] LABS: BASO # 0.1 K/uL (0.0-0.2); BASO % 0.8 % (0.0-2.0); EOS # 0.3 K/uL (0.0-0.7); EOS % 5.7 % (0.0-4.0); HEMATOCRIT 38.9 % (35.0-51.0); LYMPH % 33.7 % (20.0-40.0); MEAN CELL VOLUME 99.5 fL (80.0-94.0); MEAN CORPUSCULAR HEMOGLOBIN 32.9 pg (27.0-31.0); MEAN CORPUSCULAR HGB CONC 33.1 g/dL (33.0-37.0); MEAN PLATELET VOLUME 8.1 fL (7.2-11.7); MONO # 0.7 K/uL (0.0-0.8); MONO % 11.4 % (0.0-10.0); NRBC % 0.1 % (0.0-2.0); RED CELL DISTRIBUTION WIDTH 13.8 % (11.5-14.5)
[2017-05-09] MEDS: (Novolin R) Insulin Human Regular 100 units/ml vial SC SCH ×6 (08:30→21:48)
[2017-05-09] MEDS: (Novolin N) Insulin Human Isophane (NPH) 100 u/ml 10 ml vial SC SCH ×2 (08:57→22:07)
[2017-05-09] MEDS: Silver Sulfadiazine 1% Cream (20 gm) TOP SCH (10:00)
[2017-05-09] MEDS: Saccharomyces Boulardi 250 mg Cap PO SCH ×2 (10:08→17:26)
--- NOTE | 2017-05-09 10:58 | CP.PCM.PN ---
Subjective - Date & Time of Evaluation Date of Evaluation: 05/09/17 Time of Evaluation: 10:56 - Subjective Subjective: 51 year old male patient seen at bedside for infected left foot 1st interspace wound and plantar wound. Patient seen resting comfortably, AAOx3 and NAD. Patient denies any pain to left foot. Patient denies N/V/F/D/C/SOB/CP. No other pedal complaints at this time. Patient states that he has been cleaning the dressings himself because he spilled coffee on the dressing yesterday. Objective - Vital Signs/Intake and Output Vital Signs (last 24 hours): Temp Pulse Resp BP Pulse Ox 98.2 F 90 18 142/75 98 05/08/17 15:34 05/08/17 15:34 05/08/17 15:34 05/08/17 15:34 05/08/17 15:34 Intake and Output: 05/09/17 05/09/17 06:59 18:59 Intake Total 2044 Balance 2044 - Medications Medications: Current Medications Famotidine (Pepcid) 20 mg PO BID [facility] Last Admin: 05/09/17 10:08 Dose: 20 mg Heparin Sodium (Porcine) (Heparin) 5,000 units SC Q12H [facility] Last Admin: 05/09/17 10:23 Dose: 5,000 units Sodium Chloride (Sodium Chloride 0.9%) 1,000 mls @ 100 mls/hr IV .Q10H [facility] Last Admin: 05/09/17 09:07 Dose: 100 mls/hr Vancomycin HCl 1,000 mg/ (Sodium Chloride) 250 mls @ 166.6 mls/hr IVPB Q12 [facility] Last Admin: 05/09/17 10:10 Dose: 166.6 mls/hr Cefepime HCl (Maxipime Iv 2 Gm Premix) 2 gm in 100 mls @ 200 mls/hr IVPB Q12H [facility] Stop: 05/12/17 17:01 Last Admin: 05/09/17 05:45 Dose: 200 mls/hr Insulin Human NPH (Novolin N) 30 unit SC HS [facility] Last Admin: 05/08/17 21:50 Dose: 30 unit Insulin Human NPH (Novolin N) 20 unit SC ACB [facility] Last Admin: 05/09/17 08:57 Dose: 20 unit Insulin Human Regular (Novolin R) 0 unit SC ACHS [facility] PRN Reason: Protocol Last Admin: 05/09/17 08:30 Dose: Not Given Insulin Human Regular (Novolin R) 14 unit SC ACBD [facility] Last Admin: 05/09/17 08:59 Dose: 14 unit Lisinopril (Zestril) 5 mg PO DAILY [facility] Last Admin: 05/09/17 10:08 Dose: 5 mg Lorazepam (Ativan) 1 mg PO Q24H [facility] PRN Reason: Taper Stop: 05/10/17 10:29 Last Admin: 05/09/17 05:57 Dose: Not Given Lorazepam (Ativan) 1 mg IVP Q6H [facility] PRN Reason: Seizure activity Saccharomyces Boulardii (Florastor) 250 mg PO BID [facility] Last Admin: 05/09/17 10:08 Dose: 250 mg Silver Sulfadiazine (Silvadene 1% 20 Gm) 0 ea TOP DAILY [facility] Last Admin: 05/08/17 12:08 Dose: 1 appl - Labs Labs: 05/09/17 06:36 05/09/17 06:36 - Constitutional Appears: Well, Non-toxic, No Acute Distress - Extremities Exam Additional comments: LLE exam: Derm: Severe maceration noted to L 1st interspace. Ulceration to lateral hallucal base noted, no purulence was expressed. negative probe to bone, moderate malodor. Approximately 0.8cm x 1.0cm x 0.3cm wound at lateral plantar forefoot, base fibrous no drainage, no malodor, negative probe to bone, edges hyperkeratotic, localized erythema and nonpitting edema to foot . Vascular: DP and PT pulses 2/4, CFT <3sec, TG warm to warm Neuro: Gross sensation diminished Ortho: No pain on palpation of 1st IS periwound area. No pain on palpation plantarlateral forefoot wound. Extensor substitution hammertoe deformities of digits 2-5. - Neurological Exam Neurological Exam: Alert, Awake, Oriented x3 - Psychiatric Exam Psychiatric exam: Normal Affect, Normal Mood Assessment and Plan - Assessment and Plan (Free Text) Assessment: 51 year old male with L 1st interspace infected ulceration and plantar 4th metatarsal head ulceration secondary to DM Plan: Patient seen and evaluated. Discussed with attending, Dr. Hernandez. Charts, labs, vitals reviewed = WBC WNL @6.0, vital signs stable wound cx: proteus mirabilis MRI LLE shows signal abnormality of 4th met head,1st interspace, middle and distal 5th phalanges Wound dressed with betadine soaked gauze, 4x4, and kerlix continue IV abx as per ID- appreciate reccs Podiatry will continue to follow while in house
[2017-05-10] MEDS: Sodium Chloride 0.9% 1,000 ML IV SCH (01:00)
[2017-05-10] MEDS: Cefepime IV 2 gm in Dextrose 2 GM/100 ML BAG IVPB SCH ×2 (05:36→17:30)
--- NOTE | 2017-05-10 06:27 | CP.PCM.PN ---
<Dion Cosby - Last Filed: 05/10/17 12:29> Subjective - Date & Time of Evaluation Date of Evaluation: 05/10/17 Time of Evaluation: 06:24 - Subjective Subjective: PGY-[address] Fair's service Pt was seen at bedside in no acute distress. Nursing reports no acute events overnight. Pt for PICC line today for intermediate antibiotics. He denies pain in foot, like he has throughout admission. He states his last BM at 5AM was not loose. Patient denies nausea, vomiting, dizziness, fever, constipation or diarrhea. Pt asking when he can leave the hospital. It was explained to pt he needs IV antibiotics setup as outpatient, or he will have to remain in the hospital. Objective - Vital Signs/Intake and Output Vital Signs (last 24 hours): Temp Pulse Resp BP Pulse Ox 98 F 93 H 20 130/75 98 05/09/17 23:30 05/09/17 23:30 05/09/17 23:30 05/09/17 23:30 05/09/17 23:30 Intake and Output: 05/09/17 05/10/17 18:59 06:59 Intake Total 650 1320 Balance 650 1320 - Medications Medications: Current Medications Famotidine (Pepcid) 20 mg PO BID [facility] Last Admin: 05/09/17 17:26 Dose: 20 mg Heparin Sodium (Porcine) (Heparin) 5,000 units SC Q12H [facility] Last Admin: 05/09/17 22:07 Dose: 5,000 units Sodium Chloride (Sodium Chloride 0.9%) 1,000 mls @ 100 mls/hr IV .Q10H [facility] Last Admin: 05/09/17 23:00 Dose: 100 mls/hr Vancomycin HCl 1,000 mg/ (Sodium Chloride) 250 mls @ 166.6 mls/hr IVPB Q12 [facility] Last Admin: 05/09/17 22:08 Dose: 166.6 mls/hr Cefepime HCl (Maxipime Iv 2 Gm Premix) 2 gm in 100 mls @ 200 mls/hr IVPB Q12H [facility] Stop: 05/12/17 17:01 Last Admin: 05/10/17 05:36 Dose: 200 mls/hr Insulin Human NPH (Novolin N) 30 unit SC [facility] Last Admin: 05/09/17 22:07 Dose: 30 unit Insulin Human NPH (Novolin N) 20 unit SC ACB [facility] Last Admin: 05/09/17 08:57 Dose: 20 unit Insulin Human Regular (Novolin R) 0 unit SC ACHS [facility] PRN Reason: Protocol Last Admin: 05/09/17 21:48 Dose: Not Given Insulin Human Regular (Novolin R) 14 unit SC ACBD [facility] Last Admin: 05/09/17 17:26 Dose: 14 unit Lisinopril (Zestril) 5 mg PO DAILY [facility] Last Admin: 05/09/17 10:08 Dose: 5 mg Lorazepam (Ativan) 1 mg PO Q24H [facility] PRN Reason: Taper Stop: 05/10/17 10:29 Last Admin: 05/09/17 10:00 Dose: Not Given Lorazepam (Ativan) 1 mg IVP Q6H PRN PRN Reason: Seizure activity Saccharomyces Boulardii (Florastor) 250 mg PO BID [facility] Last Admin: 05/09/17 17:26 Dose: 250 mg Silver Sulfadiazine (Silvadene 1% 20 Gm) 0 ea TOP DAILY [facility] Last Admin: 05/09/17 10:00 Dose: 1 appl - Labs Labs: 05/09/17 06:36 05/09/17 06:36 - Additional Findings Additional findings: - Constitutional Appears: Non-toxic, No Acute Distress - Head Exam Head Exam: ATRAUMATIC, NORMAL INSPECTION, NORMOCEPHALIC - Eye Exam Eye Exam: EOMI, Normal appearance Pupil Exam: PERRL - ENT Exam ENT Exam: Mucous Membranes Moist - Neck Exam Neck Exam: Full ROM - Respiratory Exam Respiratory Exam: Clear to Ausculation Bilateral, NORMAL BREATHING PATTERN. absent: Accessory Muscle Use, Rales, Rhonchi, Wheezes - Cardiovascular Exam Cardiovascular Exam: REGULAR RHYTHM, +S1, +S2 - GI/Abdominal Exam GI & Abdominal Exam: Soft, Normal Bowel Sounds. absent: Tenderness - Extremities Exam Additional comments: left foot two ulcers: one ulcer between first and second toe - no purulence noted - improved since admission, decreased erythema/edema 2nd wound on bottom left side of foot DP/PT pulses palpated: pulses intact 2/4 Light touch diminished on L5-S1 dermatome on plantar surface of left foot Proprioception intact Reports no pain on palpation of wound sites Assessment and Plan - Assessment and Plan (Free Text) Plan: OSteomyelitis Admit to Med/Surg Floor Hx of Diabetic ulcer on same foot in October - MRI on prior admission of left foot (10/24/16): Scale muscle and subcutaneous inflammatory chagnes at plantar aspect of distal left foot at level of 4th/5th metatarsal bones and toes. No evidence of osteomyelitis. - Left foot wound culture on prior admission (MRSA, beta hemolytic strep group B ) - Prior hx of osteomyelitis on RIGHT foot XR Left foot (05/04/17): No acute fractures nor obvious cortical destructive changes however early osteomyelitis not excluded. Suspect mild soft tissue swelling of left great toe. Questionable mild soft tissue swelling at level of metacarpals and MTP joints. R/o cellulitis. F/u MRI for further evaluation if necessary (see full report) XR Left Tib/Fib (05/04/17): No evidence acute fracture or dislocation. Early osteomyelitis cannot be excluded completely. Questionable mild cellulitis. Extensive vascular calcifications. f/u with MRI if concern for osteomyelitis ( see full report). MRI of left foot (05/06/17): Prominent signal abnormality seen at head of 4th metatarsal bone with increased STIR and patchy decreased T1 signal. May represent underlying infectious or inflammatory changes. Mild edema at base of 4th proximal phalanx, nonspecific. Correlate clinically. Degenerative changes noted at 1st interphalangeal joint space with some minimal osteochondral change. Mild nonspecific reactive edema at 1st distal phalanx with increased STIR signal and decreased T1 signal which is non-specific, but inflammatory changes cannot be entirely excluded. Mild non-specific reactive edema at 5th middle and distal phalanges which may correlate with failure of fat suppression. No gross T1 signal abnomrality at this level. Focal signal abnormality seen with the posterior navicular bone demonstrating patchy decreased T1 signal and increased STIR signal which may represent some osteochondral change. Clinical correlation. Moderate hallux valgus deformity. Bipartite medial sesamoid bone. Prominent vascular calcifications. Vancomycin 1g and Zosyn 3.375g given in ED Vancomycin 1g IV Daily ( 05/05/17) Discontinued Zosyn 3.375g IV q6 (course 05/05/17 -05/07) Podiatry consult- Dr. Hernandez, help appreciated - MRI LLE shows signal abnormality of 4th met head,1st interspace, middle and distal 5th phalanges - wound cx results showing prelim gram neg rods, klebsiella pneumoniae - recommend ID consult - no plan for OR or further debridement ID: Dr Soliz, help appreciated - Cefepime 2gm IV q12H (day 4) ESR 41 blood cultures: no growth x 5 days wound cultures (05/04/17): Klebsiella pneumoniae , group G streptococcus, Proteus mirabilis wound culture (05/05/17): Proteus mirabilis Uncontrolled Type 2 diabetes Mellitus Improving control on this admission (range 124-203) A1C : 14.3 - range of 10.9 -13 over past 4 years of admissions Novolin low sliding scale coverage Diabetic Diet accucheck ACHS Lipid panel: tri 122, T Chol 154, LDL 103, HDL 47 Endocrinology consult: Dr. Mcconnell - Has signed off; Regimen below is appropriate for discharge - increase NPH to 30 units SC HS - increase NPH in AM to 20 units before breakfast - increase regular insulin to 14 unit SC before meals. -continue low dose scale Nutrition consult para educator consult with Alana Jefferson, hermes appreciated Hypertension, chronic Pt normotensive over course, controleed now this AM Discontinue Norvasc 10mg PO daily Continune Lisinopril 5mg PO Daily for renal protective benefits in diabetic Elevated Blood Alcohol Hx of alcoholism EtOH level on admission: 258 Ativan taper Macrocytic Anemia MCV 99 Vitamin B12 346, Folate 8.9 - context of pt's hx of alcoholism Prophylaxis GI- Pepcid 20mg po BID DVT- heparin 5000 Q12H Diabetic Diet Discussed with Dr. Kirit Cosby PGY-1 <Juliana Fair V - Last Filed: 05/10/17 17:47> Objective - Vital Signs/Intake and Output Vital Signs (last 24 hours): Temp Pulse Resp BP Pulse Ox 97.8 F 90 20 154/72 H 97 05/10/17 15:50 05/10/17 15:50 05/10/17 15:50 05/10/17 15:50 05/10/17 15:50 Intake and Output: 05/10/17 05/10/17 06:59 18:59 Intake Total 2069 900 Balance 2069 900 - Medications Medications: Current Medications Famotidine (Pepcid) 20 mg PO BID [facility] Last Admin: 05/10/17 10:15 Dose: 20 mg Heparin Sodium (Porcine) (Heparin) 5,000 units SC Q12H [facility] Last Admin: 05/10/17 10:15 Dose: 5,000 units Vancomycin HCl 1,000 mg/ (Sodium Chloride) 250 mls @ 166.6 mls/hr IVPB Q12 [facility] Last Admin: 05/10/17 10:15 Dose: 166.6 mls/hr Cefepime HCl (Maxipime Iv 2 Gm Premix) 2 gm in 100 mls @ 200 mls/hr IVPB Q12H [facility] Stop: 05/12/17 17:01 Last Admin: 05/10/17 05:36 Dose: 200 mls/hr Insulin Human NPH (Novolin N) 30 unit SC HS [facility] Last Admin: 05/09/17 22:07 Dose: 30 unit Insulin Human NPH (Novolin N) 20 unit SC ACB [facility] Last Admin: 05/10/17 08:26 Dose: 20 unit Insulin Human Regular (Novolin R) 0 unit SC ACHS [facility] PRN Reason: Protocol Last Admin: 05/10/17 12:28 Dose: Not Given Insulin Human Regular (Novolin R) 14 unit SC ACBD [facility] Last Admin: 05/10/17 08:27 Dose: 14 unit Lisinopril (Zestril) 5 mg PO DAILY [facility] Last Admin: 05/10/17 10:14 Dose: 5 mg Lorazepam (Ativan) 1 mg IVP Q6H [facility] PRN Reason: Seizure activity Saccharomyces Boulardii (Florastor) 250 mg PO BID [facility] Last Admin: 05/10/17 10:14 Dose: 250 mg Silver Sulfadiazine (Silvadene 1% 20 Gm) 0 ea TOP DAILY [facility] Last Admin: 05/10/17 12:29 Dose: Not Given - Labs Labs: 05/10/17 06:42 05/10/17 06:38 Attending/Attestation - Attestation I have personally seen and examined this patient.: Yes I have fully participated in the care of the patient.: Yes I have reviewed all pertinent clinical information, including history, physical exam and plan: Yes Notes (Text): Patient seen, examined, and case discussed with day-time resident. Patient reports left foot pain is about the same. Podiatry signed off recommended follow-up in the clinic on Saturday or on May 20 in the clinic Patient's [id number] is uncontrolled; 14; endocrinology has signed off. Recommended for insulin regimen; will provide voucher to fulfill insulin prior to discharge and will need to follow-up in the clinic with social service technician and conservation educator to get insulin follow-up. Patient received PICC line this morning. Chest xray (05/10/17): Right sided PICC. linera atelectasis, left lung base Coordinating with infectious disease regarding antibiotics; recommended for Vancomycin 1 gram IV q daily (42 dose) for 6 weeks and PO Cipofloxcin 500mg PO Q 12hours (84 pills) for 6 weeks; based on LINDA from the cultures. Discussed with case management, patient to received IV Abx through Saturday, can be discharged to follow-up in the infusion center on Saturday, May 13. Increased Lisinopril 10mg PO daily Assessment/Plan 1) Left Foot Penetrating Wound * Podiatry consult- Dr. Hernandez, help appreciated-->Signed off, f/u in the podiatry clinic * Infectious disease- Dr Soliz, help appreciated-->Dr. Brooks covering; recommended for Vancomycin 1 gram IV q daily (total: 42 doses) for 6 weeks and PO Cipofloxcin 500mg PO Q 12hours (84 pills) for 6 weeks; based on LINDA from the cultures. * Hx of Diabetic ulcer on same foot in October * MRI on prior admission of left foot (10/24/16): Scale muscle and subcutaneous inflammatory chagnes at plantar aspect of distal left foot at level of 4th/5th metatarsal bones and toes. No evidence of osteomyelitis. * Left foot wound culture on prior admission (MRSA, beta hemolytic strep group B) * Prior hx of osteomyelitis on RIGHT foot * XR Left foot (05/04/17): No acute fractures nor obvious cortical destructive changes however early osteomyelitis not excluded. Suspect mild soft tissue swelling of left great toe. Questionable mild soft tissue swelling at level of metacarpals and MTP joints. R/o cellulitis. F/u MRI for further evaluation if necessary (see full report) * XR Left Tib/Fib (05/04/17): No evidence acute fracture or dislocation. Early osteomyelitis cannot be excluded completely. Questionable mild cellulitis. Extensive vascular calcifications. f/u with MRI if concern for osteomyelitis ( see full report). * MRI of left foot (05/06/17): Prominent signal abnormality seen at head of 4th metatarsal bone with increased STIR and patchy decreased T1 signal. May represent underlying infectious or inflammatory changes. Mild edema at base of 4th proximal phalanx, nonspecific. Correlate clinically. Degenerative changes noted at 1st interphalangeal joint space with some minimal osteochondral change. Mild nonspecific reactive edema at 1st distal phalanx with increased STIR signal and decreased T1 signal which is non-specific, but inflammatory changes cannot be entirely excluded. Mild non-specific reactive edema at 5th middle and distal phalanges which may correlate with failure of fat suppression. No gross T1 signal abnomrality at this level. Focal signal abnormality seen with the posterior navicular bone demonstrating patchy decreased T1 signal and increased STIR signal which may represent some osteochondral change. Clinical correlation. Moderate hallux valgus deformity. Bipartite medial sesamoid bone. Prominent vascular calcifications. * Vancomycin 1g IV Q12H (active since 05/07/17, Day 4) * Maxipime 2gram IVPB Q 12hours (active since 05/07/17, Day 4) * Blood cultures (05/04): no growth x 5 days X2 * Foot Left (05/04): Proteus Mirabilis, Klebsiella Pneumoniae, Group G Streptoccus-->sensitive to Maxipime and Cipro * Foot Left (05/05): Proteus Mirabilis--->Sensitive to Maxipime and Cipro 2) Uncontrolled Type 2 diabetes Mellitus * A1C : 14.3 * Endocrinology consult: Dr. Mcconnell on board-->help appreciated; signed off * Novolin N 30 units subHS * Novolin N 20 units ACB * Regular insulin sliding subq coverage * Regular 14 units SC ACBD * Diabetic consistent diet * Accucheck ACHS * Lipid Panel: T, Cholestrol: 151, LDL: 86; HDL: 53 * Increase Lisinopril 10mg PO daily 3) Alcohol Use * Alcohol use: 3x a week; 16 ounces * Ativan taper (active since 05/05/17) completed * Ativan 1mg IVQ 4hour PRN seizure activity 4) Prophylaxis * GI- Pepcid 20mg po BID * DVT- heparin 5000 Q12H * Diabetic Diet * Florastor 250mg PO bid
[2017-05-10 07:03] LABS: BASO # 0.1 K/uL (0.0-0.2); EOS # 0.4 K/uL (0.0-0.7); LYMPH # 1.9 K/uL (1.0-4.3); MEAN PLATELET VOLUME 7.8 fL (7.2-11.7); MONO # 0.9 K/uL (0.0-0.8)
[2017-05-10 07:19] LABS: EOS % 6.4 % (0.0-4.0); LYMPH % 30.2 % (20.0-40.0); MEAN CELL VOLUME 99.7 fL (80.0-94.0); MEAN CORPUSCULAR HEMOGLOBIN 33.4 pg (27.0-31.0); MEAN CORPUSCULAR HGB CONC 33.5 g/dL (33.0-37.0); MONO % 13.6 % (0.0-10.0); RED CELL DISTRIBUTION WIDTH 13.7 % (11.5-14.5); WHITE BLOOD COUNT 6.4 K/uL (4.8-10.8)
[2017-05-10 07:20] LABS: ALB/GLOB RATIO 1.2 (1.0-2.1); ALKALINE PHOSPHATASE 46 U/L (38-126); ALT/SGPT 27 U/L (21-72); AST/SGOT 30 U/L (17-59); BILIRUBIN,TOTAL < 0.1 mg/dL (0.2-1.3); BLOOD UREA NITROGEN 16 mg/dL (9-20); CALCIUM 8.8 mg/dl (8.6-10.4); CARBON DIOXIDE 29 mmol/L (22-30); CHLORIDE 97 mmol/L (98-107); GFR AFRICAN-AMERICAN > 60; GLUCOSE,RANDOM 166 mg/dL (75-110); MAGNESIUM 1.8 mg/dL (1.6-2.3); PHOSPHOROUS 3.3 mg/dL (2.5-4.5); SODIUM 136 mmol/L (132-148); TOTAL PROTEIN 5.4 g/dL (6.3-8.3)
[2017-05-10] MEDS: (Novolin R) Insulin Human Regular 100 units/ml vial SC SCH ×6 (08:12→21:26)
[2017-05-10] MEDS: (Novolin N) Insulin Human Isophane (NPH) 100 u/ml 10 ml vial SC SCH ×2 (08:26→22:39)
[2017-05-10] MEDS: Silver Sulfadiazine 1% Cream (20 gm) TOP SCH ×2 (10:14→12:29)
[2017-05-10] MEDS: Saccharomyces Boulardi 250 mg Cap PO SCH ×2 (10:14→17:58)
--- NOTE | 2017-05-10 10:39 | RAD ---
HISTORY: verify right PICC COMPARISON: Chest x-ray performed 03/03/16 TECHNIQUE: Chest, one view. FINDINGS: Distal tip of right-sided PICC extends to the SVC. LUNGS: Linear atelectasis, left lung base. No focal consolidation. Please note that chest x-ray has limited sensitivity for the detection of pulmonary masses. PLEURA: No significant pleural effusion identified. No definite pneumothorax . CARDIOVASCULAR: Heart size appears within normal limits. Ectatic aorta. OSSEOUS STRUCTURES: No acute osseous abnormality identified. VISUALIZED UPPER ABDOMEN: Right upper quadrant surgical clips. OTHER FINDINGS: None. IMPRESSION: Right-sided PICC. Linear atelectasis, left lung base.
--- NOTE | 2017-05-10 12:26 | CP.PCM.PN ---
Subjective - Date & Time of Evaluation Date of Evaluation: 05/10/17 Time of Evaluation: 12:23 - Subjective Subjective: 51 year old male patient seen at bedside for infected left foot 1st interspace wound and plantar wound. Patient seen resting comfortably, AAOx3 and NAD. Patient denies any pain to left foot. Patient denies N/V/F/D/C/SOB/CP. No other pedal complaints at this time. Patient states that he has been cleaning the dressings himself because he spilled coffee on the dressing yesterday. Objective - Vital Signs/Intake and Output Vital Signs (last 24 hours): Temp Pulse Resp BP Pulse Ox 98.7 F 100 H 18 149/79 98 05/10/17 07:22 05/10/17 10:09 05/10/17 07:22 05/10/17 10:09 05/10/17 07:22 Intake and Output: 05/10/17 05/10/17 06:59 18:59 Intake Total 2069 Balance 2069 - Medications Medications: Current Medications Famotidine (Pepcid) 20 mg PO BID [facility] Last Admin: 05/10/17 10:15 Dose: 20 mg Heparin Sodium (Porcine) (Heparin) 5,000 units SC Q12H [facility] Last Admin: 05/10/17 10:15 Dose: 5,000 units Vancomycin HCl 1,000 mg/ (Sodium Chloride) 250 mls @ 166.6 mls/hr IVPB Q12 [facility] Last Admin: 05/10/17 10:15 Dose: 166.6 mls/hr Cefepime HCl (Maxipime Iv 2 Gm Premix) 2 gm in 100 mls @ 200 mls/hr IVPB Q12H [facility] Stop: 05/12/17 17:01 Last Admin: 05/10/17 05:36 Dose: 200 mls/hr Insulin Human NPH (Novolin N) 30 unit SC HS [facility] Last Admin: 05/09/17 22:07 Dose: 30 unit Insulin Human NPH (Novolin N) 20 unit SC ACB [facility] Last Admin: 05/10/17 08:26 Dose: 20 unit Insulin Human Regular (Novolin R) 0 unit SC ACHS [facility] PRN Reason: Protocol Last Admin: 05/10/17 08:12 Dose: Not Given Insulin Human Regular (Novolin R) 14 unit SC ACBD [facility] Last Admin: 05/10/17 08:27 Dose: 14 unit Lisinopril (Zestril) 5 mg PO DAILY [facility] Last Admin: 05/10/17 10:14 Dose: 5 mg Lorazepam (Ativan) 1 mg IVP Q6H [facility]N PRN Reason: Seizure activity Saccharomyces Boulardii (Florastor) 250 mg PO BID [facility] Last Admin: 05/10/17 10:14 Dose: 250 mg Silver Sulfadiazine (Silvadene 1% 20 Gm) 0 ea TOP DAILY [facility] Last Admin: 05/09/17 10:00 Dose: 1 appl - Labs Labs: 05/10/17 06:42 05/10/17 06:38 - Constitutional Appears: Well, Non-toxic, No Acute Distress - Extremities Exam Additional comments: LLE exam: Derm: Severe maceration noted to L 1st interspace. Ulceration to lateral hallucal base noted, no purulence was expressed. negative probe to bone, minimal malodor. Approximately 0.8cm x 1.0cm x 0.3cm wound at lateral plantar forefoot, base fibrous no drainage, no malodor, negative probe to bone, edges hyperkeratotic, no edema or erythema. Vascular: DP and PT pulses 2/4, CFT <3sec, TG warm to warm Neuro: Gross sensation diminished Ortho: No pain on palpation of 1st IS periwound area. No pain on palpation plantarlateral forefoot wound. Extensor substitution hammertoe deformities of digits 2-5. - Neurological Exam Neurological Exam: Alert, Awake, Oriented x3 - Psychiatric Exam Psychiatric exam: Normal Affect, Normal Mood Assessment and Plan - Assessment and Plan (Free Text) Assessment: 51 year old male with L 1st interspace infected ulceration and plantar 4th metatarsal head ulceration secondary to DM Plan: Patient seen and evaluated. Discussed with attending, Dr. Hernandez. Charts, labs, vitals reviewed = WBC WNL @6.4, vital signs stable wound cx: proteus mirabilis MRI LLE shows signal abnormality of 4th met head,1st interspace, middle and distal 5th phalanges Wound dressed with betadine soaked gauze, 4x4, and kerlix continue IV abx as per ID- appreciate reccs patient stable from podiatry standpoint and will follow up in podiatry clinic on 05/10/[address] Hernandez patient to continue cipro oral and [facility] daily for IV abx Podiatry will continue to follow while in house
[2017-05-10 15:50] VITALS: RESP 20
--- NOTE | 2017-05-11 03:20 | CP.PCM.PN ---
<IvanGabriel bell Shilpa - Last Filed: 05/11/17 03:17> Subjective - Date & Time of Evaluation Date of Evaluation: 05/11/17 Time of Evaluation: 06:00 - Subjective Subjective: Patient seen and examined at bedside with family present. He was sitting up, his left foot was covered in clean gauze. Patient complained of fluid retention/ swelling in his right foot and questioned whether he needed to be on IV fluids. He did not associate the swelling with pain. He says the swelling in his right foot is less than a day ago, but it still concerns him. When I checked the current orders I did not see any orders for fluid administration, the last NS administration was on 05/05/2017. He did not have any other complaints. His new PICC line was not causing him pain or discomfort. He denied sob, cp, n/v/d/c, f/ c. He's tolerating his diet and sleeping well. Objective - Vital Signs/Intake and Output Vital Signs (last 24 hours): Temp Pulse Resp BP Pulse Ox 98.0 F 95 H 20 135/76 97 05/10/17 23:21 05/10/17 23:21 05/10/17 23:21 05/10/17 23:21 05/10/17 23:21 Intake and Output: 05/10/17 05/11/17 18:59 06:59 Intake Total 900 350 Balance 900 350 - Medications Medications: Current Medications Ciprofloxacin (Cipro) 500 mg PO BID [facility] Famotidine (Pepcid) 20 mg PO BID [facility] Last Admin: 05/10/17 17:58 Dose: 20 mg Heparin Sodium (Porcine) (Heparin) 5,000 units SC Q12H [facility] Last Admin: 05/10/17 22:39 Dose: 5,000 units Vancomycin HCl 1,000 mg/ (Sodium Chloride) 250 mls @ 166.6 mls/hr IVPB Q12 [facility] Last Admin: 05/10/17 22:39 Dose: 166.6 mls/hr Insulin Human NPH (Novolin N) 30 unit SC HS [facility] Last Admin: 05/10/17 22:39 Dose: 30 unit Insulin Human NPH (Novolin N) 20 unit SC ACB [facility] Last Admin: 05/10/17 08:26 Dose: 20 unit Insulin Human Regular (Novolin R) 0 unit SC ACHS [facility] PRN Reason: Protocol Last Admin: 05/10/17 21:26 Dose: Not Given Insulin Human Regular (Novolin R) 14 unit SC ACBD [facility] Last Admin: 05/10/17 17:30 Dose: 14 unit Lisinopril (Zestril) 10 mg PO DAILY [facility] Lorazepam (Ativan) 1 mg IVP Q6H PRN PRN Reason: Seizure activity Saccharomyces Boulardii (Florastor) 250 mg PO BID [facility] Last Admin: 05/10/17 17:58 Dose: 250 mg Silver Sulfadiazine (Silvadene 1% 20 Gm) 0 ea TOP DAILY [facility] Last Admin: 05/10/17 12:29 Dose: Not Given - Labs Labs: 05/10/17 06:42 05/10/17 06:38 - Constitutional Appears: No Acute Distress - Head Exam Head Exam: NORMAL INSPECTION - Eye Exam Eye Exam: Normal appearance - ENT Exam ENT Exam: Mucous Membranes Moist - Neck Exam Neck Exam: Normal Inspection - Respiratory Exam Respiratory Exam: Clear to Ausculation Bilateral, NORMAL BREATHING PATTERN - Cardiovascular Exam Cardiovascular Exam: REGULAR RHYTHM, +S1, +S2. absent: Murmur - GI/Abdominal Exam GI & Abdominal Exam: Soft, Normal Bowel Sounds. absent: Tenderness - Rectal Exam Rectal Exam: Deferred - Extremities Exam Additional comments: left foot two ulcers: one ulcer between first and second toe - no purulence noted - improved since admission, decreased erythema/edema 2nd wound on bottom left side of foot DP/PT pulses palpated: pulses intact 2/4 Light touch diminished on L5-S1 dermatome on plantar surface of left foot Proprioception intact Reports no pain on palpation of wound sites - Neurological Exam Neurological Exam: Alert, Awake - Psychiatric Exam Psychiatric exam: Normal Affect, Normal Mood - Skin Skin Exam: Dry, Intact, Normal Color, Warm Assessment and Plan - Assessment and Plan (Free Text) Assessment: OSteomyelitis Admit to Med/Surg Floor Hx of Diabetic ulcer on same foot in October - MRI on prior admission of left foot (10/24/16): Scale muscle and subcutaneous inflammatory chagnes at plantar aspect of distal left foot at level of 4th/5th metatarsal bones and toes. No evidence of osteomyelitis. - Left foot wound culture on prior admission (MRSA, beta hemolytic strep group B ) - Prior hx of osteomyelitis on RIGHT foot XR Left foot (05/04/17): No acute fractures nor obvious cortical destructive changes however early osteomyelitis not excluded. Suspect mild soft tissue swelling of left great toe. Questionable mild soft tissue swelling at level of metacarpals and MTP joints. R/o cellulitis. F/u MRI for further evaluation if necessary (see full report) XR Left Tib/Fib (05/04/17): No evidence acute fracture or dislocation. Early osteomyelitis cannot be excluded completely. Questionable mild cellulitis. Extensive vascular calcifications. f/u with MRI if concern for osteomyelitis ( see full report). MRI of left foot (05/06/17): Prominent signal abnormality seen at head of 4th metatarsal bone with increased STIR and patchy decreased T1 signal. May represent underlying infectious or inflammatory changes. Mild edema at base of 4th proximal phalanx, nonspecific. Correlate clinically. Degenerative changes noted at 1st interphalangeal joint space with some minimal osteochondral change. Mild nonspecific reactive edema at 1st distal phalanx with increased STIR signal and decreased T1 signal which is non-specific, but inflammatory changes cannot be entirely excluded. Mild non-specific reactive edema at 5th middle and distal phalanges which may correlate with failure of fat suppression. No gross T1 signal abnomrality at this level. Focal signal abnormality seen with the posterior navicular bone demonstrating patchy decreased T1 signal and increased STIR signal which may represent some osteochondral change. Clinical correlation. Moderate hallux valgus deformity. Bipartite medial sesamoid bone. Prominent vascular calcifications. Vancomycin 1g and Zosyn 3.375g given in ED Vancomycin 1g IV Daily ( 05/05/17) Discontinued Zosyn 3.375g IV q6 (course 05/05/17 -05/07) Podiatry consult- Dr. Hernandez, help appreciated - MRI LLE shows signal abnormality of 4th met head,1st interspace, middle and distal 5th phalanges - wound cx results showing prelim gram neg rods, klebsiella pneumoniae - recommend ID consult - no plan for OR or further debridement ID: Dr Soliz, help appreciated - Cefepime 2gm IV q12H (day 4) ESR 41 blood cultures: no growth x 5 days wound cultures (05/04/17): Klebsiella pneumoniae , group G streptococcus, Proteus mirabilis wound culture (05/05/17): Proteus mirabilis Uncontrolled Type 2 diabetes Mellitus Improving control on this admission (range 124-203) A1C : 14.3 - range of 10.9 -13 over past 4 years of admissions Novolin low sliding scale coverage Diabetic Diet accucheck ACHS Lipid panel: tri 122, T Chol 154, LDL 103, HDL 47 Endocrinology consult: Dr. Mcconnell - Has signed off; Regimen below is appropriate for discharge - increase NPH to 30 units SC HS - increase NPH in AM to 20 units before breakfast - increase regular insulin to 14 unit SC before meals. -continue low dose scale Nutrition consult patient educator consult with Alana Jefferson, help appreciated Hypertension, chronic Pt normotensive over course, controleed now this AM Discontinue Norvasc 10mg PO daily Continune Lisinopril 5mg PO Daily for renal protective benefits in diabetic Elevated Blood Alcohol Hx of alcoholism EtOH level on admission: 258 Ativan taper Macrocytic Anemia MCV 99 Vitamin B12 346, Folate 8.9 - context of pt's hx of alcoholism Prophylaxis GI- Pepcid 20mg po BID DVT- heparin 5000 Q12H Diabetic Diet <Juliana Fair V - Last Filed: 05/11/17 09:39> Objective - Vital Signs/Intake and Output Vital Signs (last 24 hours): Temp Pulse Resp BP Pulse Ox 97.5 F L 96 H 20 163/79 H 95 05/11/17 07:00 05/11/17 07:00 05/11/17 07:00 05/11/17 07:00 05/11/17 07:00 Intake and Output: 05/11/17 05/11/17 06:59 18:59 Intake Total 590 Balance 590 - Medications Medications: Current Medications Ciprofloxacin (Cipro) 500 mg PO BID [facility] Famotidine (Pepcid) 20 mg PO BID [facility] Last Admin: 05/10/17 17:58 Dose: 20 mg Furosemide (Lasix) 40 mg IVP STAT STA Stop: 05/11/17 09:37 Heparin Sodium (Porcine) (Heparin) 5,000 units SC Q12H [facility] Last Admin: 05/10/17 22:39 Dose: 5,000 units Vancomycin HCl 1,000 mg/ (Sodium Chloride) 250 mls @ 166.6 mls/hr IVPB Q12 [facility] Last Admin: 05/10/17 22:39 Dose: 166.6 mls/hr Insulin Human NPH (Novolin N) 30 unit SC HS [facility] Last Admin: 05/10/17 22:39 Dose: 30 unit Insulin Human NPH (Novolin N) 20 unit SC ACB [facility] Last Admin: 05/11/17 08:47 Dose: 20 unit Insulin Human Regular (Novolin R) 0 unit SC ACHS [facility] PRN Reason: Protocol Last Admin: 05/11/17 08:23 Dose: Not Given Insulin Human Regular (Novolin R) 14 unit SC ACBD [facility] Last Admin: 05/11/17 08:24 Dose: Not Given Lisinopril (Zestril) 10 mg PO DAILY [facility] Lorazepam (Ativan) 1 mg IVP Q6H PRN PRN Reason: Seizure activity Saccharomyces Boulardii (Florastor) 250 mg PO BID [facility] Last Admin: 05/10/17 17:58 Dose: 250 mg Silver Sulfadiazine (Silvadene 1% 20 Gm) 0 ea TOP DAILY [facility] Last Admin: 05/10/17 12:29 Dose: Not Given - Labs Labs: 05/11/17 07:33 05/11/17 07:33 Attending/Attestation - Attestation I have personally seen and examined this patient.: Yes I have fully participated in the care of the patient.: Yes I have reviewed all pertinent clinical information, including history, physical exam and plan: Yes Notes (Text): Patient seen, examined, and case discussed with day-time resident. Patient reports left foot pain is about the same. Podiatry signed off recommended follow-up in the clinic on Saturday or on May 20 in the clinic Patient's [id number] is uncontrolled; 14; endocrinology has signed off. 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 Patient reports he feels like he is retaining fluid in both of his legs. His legs are pitting on my exam. Patient refused IV fluids. Patient ordered for b/l venous dopplers r/o DVT. Patient ordered for right foot xray; the big toe visible looks swollen. Given dose of Lasix 40mg IV X1 to offset the fluid retention. Assessment/Plan 1) Left Foot Penetrating Wound * Podiatry consult- Dr. Hernandez, help appreciated-->Signed off, f/u in the podiatry clinic * Infectious disease- Dr Soliz, help appreciated-->Dr. Brooks covering; recommended for Vancomycin 1 gram IV q daily (total: 42 doses) for 6 weeks and PO Cipofloxcin 500mg PO Q 12hours (84 pills) for 6 weeks; based on LINDA from the cultures. * Hx of Diabetic ulcer on same foot in October * MRI on prior admission of left foot (10/24/16): Scale muscle and subcutaneous inflammatory chagnes at plantar aspect of distal left foot at level of 4th/5th metatarsal bones and toes. No evidence of osteomyelitis. * Left foot wound culture on prior admission (MRSA, beta hemolytic strep group B) * Prior hx of osteomyelitis on RIGHT foot * XR Left foot (05/04/17): No acute fractures nor obvious cortical destructive changes however early osteomyelitis not excluded. Suspect mild soft tissue swelling of left great toe. Questionable mild soft tissue swelling at level of metacarpals and MTP joints. R/o cellulitis. F/u MRI for further evaluation if necessary (see full report) * XR Left Tib/Fib (05/04/17): No evidence acute fracture or dislocation. Early osteomyelitis cannot be excluded completely. Questionable mild cellulitis. Extensive vascular calcifications. f/u with MRI if concern for osteomyelitis ( see full report). * MRI of left foot (05/06/17): Prominent signal abnormality seen at head of 4th metatarsal bone with increased STIR and patchy decreased T1 signal. May represent underlying infectious or inflammatory changes. Mild edema at base of 4th proximal phalanx, nonspecific. Correlate clinically. Degenerative changes noted at 1st interphalangeal joint space with some minimal osteochondral change. Mild nonspecific reactive edema at 1st distal phalanx with increased STIR signal and decreased T1 signal which is non-specific, but inflammatory changes cannot be entirely excluded. Mild non-specific reactive edema at 5th middle and distal phalanges which may correlate with failure of fat suppression. No gross T1 signal abnomrality at this level. Focal signal abnormality seen with the posterior navicular bone demonstrating patchy decreased T1 signal and increased STIR signal which may represent some osteochondral change. Clinical correlation. Moderate hallux valgus deformity. Bipartite medial sesamoid bone. Prominent vascular calcifications. * Vancomycin 1g IV Q12H (active since 05/07/17, Day 4) * Maxipime 2gram IVPB Q 12hours (active since 05/07/17, Day 4) * Blood cultures (05/04): no growth x 5 days X2 * Foot Left (05/04): Proteus Mirabilis, Klebsiella Pneumoniae, Group G Streptoccus-->sensitive to Maxipime and Cipro * Foot Left (05/05): Proteus Mirabilis--->Sensitive to Maxipime and Cipro 2) Uncontrolled Type 2 diabetes Mellitus * A1C : 14.3 * Endocrinology consult: Dr. Mcconnell on board-->help appreciated; signed off * Novolin N 30 units subHS * Novolin N 20 units ACB * Regular insulin sliding subq coverage * Regular 14 units SC ACBD * Diabetic consistent diet * Accucheck ACHS * Lipid Panel: T, Cholestrol: 151, LDL: 86; HDL: 53 * Increase Lisinopril 10mg PO daily 3) Alcohol Use * Alcohol use: 3x a week; 16 ounces * Ativan taper (active since 05/05/17) completed * Ativan 1mg IVQ 4hour PRN seizure activity 4) Prophylaxis * GI- Pepcid 20mg po BID * DVT- heparin 5000 Q12H * Diabetic Diet * Florastor 250mg PO bid
[2017-05-11 07:41] LABS: BASO # 0.1 K/uL (0.0-0.2); BASO % 1.2 % (0.0-2.0); EOS # 0.4 K/uL (0.0-0.7); EOS % 5.7 % (0.0-4.0); HEMATOCRIT 33.2 % (35.0-51.0); LYMPH # 1.7 K/uL (1.0-4.3); LYMPH % 25.5 % (20.0-40.0); MEAN CELL VOLUME 98.7 fL (80.0-94.0); MEAN CORPUSCULAR HEMOGLOBIN 33.1 pg (27.0-31.0); MEAN CORPUSCULAR HGB CONC 33.5 g/dL (33.0-37.0); MEAN PLATELET VOLUME 7.8 fL (7.2-11.7); MONO # 0.8 K/uL (0.0-0.8); MONO % 12.3 % (0.0-10.0); NRBC % 0.1 % (0.0-2.0); RED CELL DISTRIBUTION WIDTH 14.3 % (11.5-14.5); WHITE BLOOD COUNT 6.8 K/uL (4.8-10.8)
[2017-05-11 08:15] LABS: CHLORIDE 99 mmol/L (98-107); POTASSIUM 4.1 mmol/L (3.6-5.2); SODIUM 137 mmol/L (132-148)
[2017-05-11 08:17] LABS: BILIRUBIN,TOTAL 0.3 mg/dL (0.2-1.3); CARBON DIOXIDE 28 mmol/L (22-30); GFR AFRICAN-AMERICAN > 60
[2017-05-11 08:18] LABS: ALKALINE PHOSPHATASE 52 U/L (38-126); ALT/SGPT 37 U/L (21-72); AST/SGOT 32 U/L (17-59); BLOOD UREA NITROGEN 16 mg/dL (9-20); CALCIUM 9.4 mg/dl (8.6-10.4); GLUCOSE,RANDOM 127 mg/dL (75-110); MAGNESIUM 1.6 mg/dL (1.6-2.3); PHOSPHOROUS 3.5 mg/dL (2.5-4.5); TOTAL PROTEIN 5.7 g/dL (6.3-8.3)
[2017-05-11] MEDS: (Novolin R) Insulin Human Regular 100 units/ml vial SC SCH ×6 (08:23→22:42)
[2017-05-11] MEDS: (Novolin N) Insulin Human Isophane (NPH) 100 u/ml 10 ml vial SC SCH ×2 (08:47→22:40)
[2017-05-11] MEDS: Silver Sulfadiazine 1% Cream (20 gm) TOP SCH (10:12)
[2017-05-11] MEDS: Saccharomyces Boulardi 250 mg Cap PO SCH ×2 (10:20→17:34)
--- NOTE | 2017-05-11 11:08 | CP.PCM.PN ---
Subjective - Date & Time of Evaluation Date of Evaluation: 05/11/17 Time of Evaluation: 11:08 - Subjective Subjective: 51 year old male patient seen at bedside for infected left foot 1st interspace wound and plantar wound. Patient is seen at bedside today resting comfortably, AAOx3 and NAD. Patient denies any pain to his left foot. Patient states he is awaiting bed placement in sub acute rehab and has been informed that it will likely take until Saturday. Patient denies N/V/F/D/C/SOB/CP. No other pedal complaints at this time. Objective - Vital Signs/Intake and Output Vital Signs (last 24 hours): Temp Pulse Resp BP Pulse Ox 97.5 F L 97 H 20 157/88 H 95 05/11/17 07:00 05/11/17 10:11 05/11/17 07:00 05/11/17 10:12 05/11/17 07:00 Intake and Output: 05/11/17 05/11/17 06:59 18:59 Intake Total 590 Balance 590 - Medications Medications: Current Medications Ciprofloxacin (Cipro) 500 mg PO BID [facility] Last Admin: 05/11/17 10:20 Dose: 500 mg Famotidine (Pepcid) 20 mg PO BID [facility] Last Admin: 05/11/17 10:20 Dose: 20 mg Heparin Sodium (Porcine) (Heparin) 5,000 units SC Q12H [facility] Last Admin: 05/11/17 10:19 Dose: 5,000 units Vancomycin HCl 1,000 mg/ (Sodium Chloride) 250 mls @ 166.6 mls/hr IVPB Q12 [facility] Last Admin: 05/11/17 10:16 Dose: 166.6 mls/hr Insulin Human NPH (Novolin N) 30 unit SC HS [facility] Last Admin: 05/10/17 22:39 Dose: 30 unit Insulin Human NPH (Novolin N) 20 unit SC ACB [facility] Last Admin: 05/11/17 08:47 Dose: 20 unit Insulin Human Regular (Novolin R) 0 unit SC ACHS [facility] PRN Reason: Protocol Last Admin: 05/11/17 08:23 Dose: Not Given Insulin Human Regular (Novolin R) 14 unit SC ACBD [facility] Last Admin: 05/11/17 08:24 Dose: Not Given Lisinopril (Zestril) 10 mg PO DAILY [facility] Last Admin: 05/11/17 10:20 Dose: 10 mg Lorazepam (Ativan) 1 mg IVP Q6H PRN PRN Reason: Seizure activity Saccharomyces Boulardii (Florastor) 250 mg PO BID [facility] Last Admin: 05/11/17 10:20 Dose: 250 mg Silver Sulfadiazine (Silvadene 1% 20 Gm) 0 ea TOP DAILY [facility] Last Admin: 05/11/17 10:12 Dose: 1 appl - Labs Labs: 05/11/17 07:33 05/11/17 07:33 - Constitutional Appears: Well, Non-toxic, No Acute Distress - Extremities Exam Additional comments: LLE exam: Derm: Maceration noted to L 1st interspace that is resolving. Dry ulceration to lateral hallucal base noted, No purulence, negative probe to bone, minimal malodor. Approximately 0.8cm x 1.0cm x 0.3cm wound at lateral plantar forefoot with fibrous base, no drainage, no malodor, Negative probe to bone, hyperkeratotic edges, no edema or erythema. Vascular: DP and PT pulses palpable 2/4, CFT <3sec x 5 digits. Temperature gradient warm to warm Neuro: Gross sensation diminished Ortho: No pain on palpation of 1st interspace periwound area. No pain on palpation plantar lateral forefoot wound. Extensor substitution hammertoe deformities of digits 2-5. - Neurological Exam Neurological Exam: Alert, Awake, Oriented x3 - Psychiatric Exam Psychiatric exam: Normal Affect, Normal Mood Assessment and Plan - Assessment and Plan (Free Text) Assessment: 51 year old male with L 1st interspace infected ulceration and plantar 4th metatarsal head ulceration secondary to DM Plan: Patient seen and evaluated at bedside Discussed plan in detail with attending, Dr. Hernandez. Charts, labs, vitals reviewed = WBC WNL @6.8, VSS Wound cx: proteus mirabilis, Klebsiella MRI LLE shows signal abnormality of 4th met head,1st interspace, middle and distal 5th phalanges Wounds on L foot dressed with betadine and DSD Cont IV Vancomycin and po Ciprofloxacin while in house Patient to continue Cipro oral and to go to infusion center at hospital daily for IV Vancomycin 6 weeks as per ID Patient stable from podiatry standpoint and will follow up in podiatry clinic on 05/20/[address] Hernandez Podiatry will continue to follow while in house
--- NOTE | 2017-05-11 15:52 | RAD ---
PROCEDURE: Right Foot Radiographs. HISTORY: right foot swelling COMPARISON: None. FINDINGS: BONES: There is no acute displaced fracture or dislocation. There is diffuse bone demineralization. JOINTS: Normal. SOFT TISSUES: There is mild dorsal soft tissue swelling. OTHER FINDINGS: Atherosclerotic vascular calcifications are present. IMPRESSION: No acute fracture or dislocation.
[2017-05-12 08:10] LABS: BASO % 0.6 % (0.0-2.0); EOS # 0.3 K/uL (0.0-0.7); EOS % 3.9 % (0.0-4.0); HEMATOCRIT 32.8 % (35.0-51.0); LYMPH # 1.8 K/uL (1.0-4.3); LYMPH % 22.4 % (20.0-40.0); MEAN CELL VOLUME 99.6 fL (80.0-94.0); MEAN CORPUSCULAR HEMOGLOBIN 32.7 pg (27.0-31.0); MEAN CORPUSCULAR HGB CONC 32.9 g/dL (33.0-37.0); MONO # 1.1 K/uL (0.0-0.8); MONO % 14.4 % (0.0-10.0); RED CELL DISTRIBUTION WIDTH 14.1 % (11.5-14.5); WHITE BLOOD COUNT 7.9 K/uL (4.8-10.8)
[2017-05-12] MEDS: (Novolin N) Insulin Human Isophane (NPH) 100 u/ml 10 ml vial SC SCH (08:24)
[2017-05-12] MEDS: (Novolin R) Insulin Human Regular 100 units/ml vial SC SCH ×3 (08:25→12:45)
[2017-05-12 08:28] VITALS: O2SAT 98
[2017-05-12 08:28] LABS: CHLORIDE 96 mmol/L (98-107)
[2017-05-12 08:29] LABS: SODIUM 134 mmol/L (132-148)
[2017-05-12 08:31] LABS: BILIRUBIN,TOTAL 0.3 mg/dL (0.2-1.3); CARBON DIOXIDE 26 mmol/L (22-30); GFR AFRICAN-AMERICAN > 60
[2017-05-12 08:32] LABS: ALKALINE PHOSPHATASE 58 U/L (38-126); ALT/SGPT 42 U/L (21-72); AST/SGOT 31 U/L (17-59); BLOOD UREA NITROGEN 23 mg/dL (9-20); CALCIUM 9.2 mg/dl (8.6-10.4); GLUCOSE,RANDOM 297 mg/dL (75-110); PHOSPHOROUS 3.6 mg/dL (2.5-4.5)
[2017-05-12 08:33] LABS: MAGNESIUM 1.7 mg/dL (1.6-2.3)
[2017-05-12] MEDS: Saccharomyces Boulardi 250 mg Cap PO SCH (10:17)
[2017-05-12] MEDS: Silver Sulfadiazine 1% Cream (20 gm) TOP SCH (10:26)
--- NOTE | 2017-05-12 10:26 | CP.PCM.DIS ---
<January Fernandez H - Last Filed: 05/12/17 10:17> Provider - Provider Date of Admission: 05/04/17 23:12 Attending physician: Johnathon Diaz MD Primary care physician: referred to [facility] Consults: Podiatry - Dr. Mcconnell Podiatry - Dr. David PINTO - Dr. Soliz and Dr. Brooks (covering for Dr. Soliz) Time Spent in preparation of Discharge (in minutes): 40 Hospital Course - Lab Results Lab Results: Micro Results 05/05/17 18:38 Leg - Left Gram Stain - Final 05/05/17 18:38 Leg - Left Wound Culture - Final Proteus Mirabilis 05/04/17 23:40 Foot - Left Gram Stain - Final 05/04/17 23:40 Foot - Left Wound Culture - Final Proteus Mirabilis Klebsiella Pneumoniae Ssp Pneu Group G Streptococcus Most Recent Lab Values WBC 7.9 K/uL (4.8-10.8) 05/12/17 08:04 RBC 3.29 Mil/uL (4.40-5.90) L 05/12/17 08:04 Hgb 10.8 g/dL (12.0-18.0) L 05/12/17 08:04 Hct 32.8 % (35.0-51.0) L 05/12/17 08:04 MCV 99.6 fL (80.0-94.0) H 05/12/17 08:04 MCH 32.7 pg (27.0-31.0) H 05/12/17 08:04 MCHC 32.9 g/dL (33.0-37.0) L 05/12/17 08:04 RDW 14.1 % (11.5-14.5) 05/12/17 08:04 Plt Count 318 K/uL (130-400) 05/12/17 08:04 MPV 8.0 fL (7.2-11.7) 05/12/17 08:04 Neut % (Auto) 58.7 % (50.0-75.0) 05/12/17 08:04 Lymph % (Auto) 22.4 % (20.0-40.0) 05/12/17 08:04 [place] % (Auto) 14.4 % (0.0-10.0) H 05/12/17 08:04 Eos % (Auto) 3.9 % (0.0-4.0) 05/12/17 08:04 Baso % (Auto) 0.6 % (0.0-2.0) 05/12/17 08:04 Neut # 4.7 K/uL (1.8-7.0) 05/12/17 08:04 Lymph # 1.8 K/uL (1.0-4.3) 05/12/17 08:04 [place] # 1.1 K/uL (0.0-0.8) H 05/12/17 08:04 Eos # 0.3 K/uL (0.0-0.7) 05/12/17 08:04 Baso # 0.0 K/uL (0.0-0.2) 05/12/17 08:04 ESR 41 mm/hr (0-15) H 05/06/17 07:05 pO2 47 mm/Hg (30-55) 05/04/17 21:28 VBG pH 7.34 (7.32-7.43) 05/04/17 21:28 VBG pCO2 34 mmHg (40-60) L 05/04/17 21:28 VBG HCO3 19.3 mmol/L 05/04/17 21:28 VBG Total CO2 19.3 mmol/L (22-28) L 05/04/17 21:28 VBG O2 Sat (Calc) 84.6 % (40-65) H 05/04/17 21:28 VBG Base Excess -6.6 mmol/L (0.0-2.0) L 05/04/17 21:28 VBG Potassium 3.9 mmol/L (3.6-5.2) 05/04/17 21:28 Sodium 135.0 mmol/l (132-148) 05/04/17 21:28 Chloride 99.0 mmol/L (98-107) 05/04/17 21:28 Glucose 571 mg/dl (75-110) H* D 05/04/17 21:28 Lactate 2.8 mmol/L (0.7-2.1) H 05/04/17 21:28 Crit Value Called To Yaya isabel 05/04/17 21:28 Crit Value Called By Lux 07/22/17 21:28 Crit Value Read Back Y 05/04/17 21:28 Blood Gas Notified Time 213405/04/17 21:28 Sodium 134 mmol/L (132-148) 05/12/17 08:04 Potassium 4.0 mmol/L (3.6-5.2) 05/12/17 08:04 Chloride 96 mmol/L (98-107) L 05/12/17 08:04 Carbon Dioxide 26 mmol/L (22-30) 05/12/17 08:04 Anion Gap 15 (10-20) 05/12/17 08:04 BUN 23 mg/dL (9-20) H 05/12/17 08:04 Creatinine 0.7 MG/DL (0.8-1.5) L 05/12/17 08:04 Est GFR ( Amer) > 60 05/12/17 08:04 Est GFR (Non-Af Amer) > 60 05/12/17 08:04 POC Glucose (mg/dL) 318 mg/dL (65-110) H 05/12/17 06:11 Random Glucose 297 mg/dL (75-110) H 05/12/17 08:04 Hemoglobin A1c 14.3 % (4.2-6.5) H D 05/05/17 08:43 Calcium 9.2 mg/dl (8.6-10.4) 05/12/17 08:04 Phosphorus 3.6 mg/dL (2.5-4.5) 05/12/17 08:04 Magnesium 1.7 mg/dL (1.6-2.3) 05/12/17 08:04 Total Bilirubin 0.3 mg/dL (0.2-1.3) 05/12/17 08:04 AST 31 U/L (17-59) 05/12/17 08:04 ALT 42 U/L (21-72) 05/12/17 08:04 Alkaline Phosphatase 58 U/L (38-126) 05/12/17 08:04 Ammonia < 9 umol/L (9-33) L 05/07/17 11:28 Total Protein 6.0 g/dL (6.3-8.3) L 05/12/17 08:04 Albumin 3.0 g/dL (3.5-5.0) L 05/12/17 08:04 Globulin 3.0 gm/dL (2.2-3.9) 05/12/17 08:04 Albumin/Globulin Ratio 1.0 (1.0-2.1) 05/12/17 08:04 Triglycerides 122 mg/dL (0-149) 05/07/17 06:43 Cholesterol 154 mg/dL (0-199) 05/07/17 06:43 LDL Cholesterol Direct 103 mg/dL (0-129) 05/07/17 06:43 HDL Cholesterol 47 mg/dL (30-70) 05/07/17 06:43 Vitamin B12 346 pg/mL (239-931) 05/06/17 13:01 Folate 8.9 ng/mL 05/06/17 13:01 Venous Blood Potassium 3.9 mmol/L (3.6-5.2) 05/04/17 21:28 Random Vancomycin 13.67 ug/mL 05/10/17 20:55 Alcohol, Quantitative 258 mg/dl (0-10) H 05/04/17 20:32 Serum Ketones Trace (NEGATIVE) 05/04/17 20:32 - Hospital Course Hospital Course: On admission: CC: foot infection HPI: Patient is a 51 y/o male with PMHx of HTN and DMII, who presents to the ED because he noticed the wounds on his left foot were getting worse. Patient first noticed wounds 3 days ago. Patient also first noticed redness on left anterior leg 3 days ago. Patient has no pain in foot or leg. Patient says he has had an infection like this a few years ago. Patient denies headache, shortness of breath, chest pain, abdominal pain, nausea, vomiting, diarrhea, or constipation. PMD: [facility] (has not been in over 1 year) Allergies: NKDA PMHx: HTN, DMII Psurg: Cholecystectomy 2010 Famhx: mom and dad- DMII stomach cancer in family Social: denies tobacco and drugs. says only drinks 3 beers once per month, but is intoxicated on exam Works for [employer] home medications: Metformin 1000 BID Hospital Course: Patient worked up for diabetic ulcer. Patient found to have osteomyelitis on MRI of left foot. ID consult - Dr. Soliz/Dr. Brooks - help appreciated. Blood cultures showed no growth for 5 days. Wound culture on 05/04/17 showed klebsiella pneumoniae, group G strep and proteus mirabilis. Wound cultures on showed Proteus Mirabilis. Patient given Zosyn from 05/05/17 to 05/07/17. Patient given vancomycin 1gm IV daily from 05/05/17 to presently. Patient given ciprfloxacin 500mg PO BID started 05/11/17. Podiatry was also consult - Dr. Hernandez - hermes appreciated. Podiatry did not think patient needed OR or debridement. Patient also treated for uncontrolled type 2 diabetes, hypertension, elevated blood alcohol and pitting edema. Patient's HgbA1C was 14.3. Endocrinology consulted - Dr. Mcconnell - hermes appreciated. Patient started on Novolin, RISS and Regular insulin. Patient also started on lisinopril 10mg PO daily for DM and HTN. Patient was given an ativan taper for alcohol withdrawal. Patient was given lasix for pitting edema. Venous dopplers were negative for clot. Patient may need an ECHO outpatient. Imaging: XR Left foot (05/04/17): No acute fractures nor obvious cortical destructive changes however early osteomyelitis not excluded. Suspect mild soft tissue swelling of left great toe. Questionable mild soft tissue swelling at level of metacarpals and MTP joints. R/o cellulitis. F/u MRI for further evaluation if necessary (see full report) XR Left Tib/Fib (05/04/17): No evidence acute fracture or dislocation. Early osteomyelitis cannot be excluded completely. Questionable mild cellulitis. Extensive vascular calcifications. f/u with MRI if concern for osteomyelitis ( see full report). MRI of left foot (05/06/17): Prominent signal abnormality seen at head of 4th metatarsal bone with increased STIR and patchy decreased T1 signal. May represent underlying infectious or inflammatory changes. Mild edema at base of 4th proximal phalanx, nonspecific. Correlate clinically. Degenerative changes noted at 1st interphalangeal joint space with some minimal osteochondral change. Mild nonspecific reactive edema at 1st distal phalanx with increased STIR signal and decreased T1 signal which is non-specific, but inflammatory changes cannot be entirely excluded. Mild non-specific reactive edema at 5th middle and distal phalanges which may correlate with failure of fat suppression. No gross T1 signal abnomrality at this level. Focal signal abnormality seen with the posterior navicular bone demonstrating patchy decreased T1 signal and increased STIR signal which may represent some osteochondral change. Clinical correlation. Moderate hallux valgus deformity. Bipartite medial sesamoid bone. Prominent vascular calcifications. On discharge: Patient stable for discharge per Dr. Fair. Patient will be given prescriptions for two antibiotics: Ciprofloxacin and Vancomycin. He will also be given a prescription for Lisinopril, a blood pressure medication. Patient must receive IV infusion of Vancomycin daily for 6-8 weeks. Pt will be given prescription for diabetes regimen recommended by survey interviewer, Dr. Mcconnell. Patient should follow up with podiatry in the clinic on Saturday, May 13. He has an appointment to see Dr. Hernandez. He should make an appointment to follow up with his PMD. Patient also has appointment in clinic on 05/17/17 @ 9:30AM for diabetes follow up. Patient should return to the ED if symptoms return or worsen. Prescribed meds: Ciprofloxacin 300mg, orally twice daily for 6 weeks Vancomycin 1 gm IV once daily x 6 weeks Lisinopril 10 mg, by mouth once daily $30 Florastor 250mg by mouth, one tablet twice daily #60 Novolin 20 units SC ACB #1 vial Novolin 30 units SC HS #1 vial Regular 14 unit SC ACBD #1 vial Regular Insulin Sliding scale ACHS #1 vial Patient should follow up tomorrow at outpatient infusion center for dose of vancomycin. Discharge Exam - Head Exam Head Exam: NORMAL INSPECTION - Eye Exam Eye Exam: EOMI, Normal appearance - ENT Exam ENT Exam: Mucous Membranes Moist - Respiratory Exam Respiratory Exam: Clear to PA & Lateral, NORMAL BREATHING PATTERN. absent: Rales, Rhonchi, Wheezes - Cardiovascular Exam Cardiovascular Exam: REGULAR RHYTHM, +S1, +S2. absent: Gallop, Rubs, Systolic Murmur - GI/Abdominal Exam GI & Abdominal Exam: Normal Bowel Sounds, Soft. absent: Distended, Firm, Tenderness - Extremities Exam Extremities exam: normal capillary refill, pedal edema (1+ pitting) - Back Exam Back exam: absent: CVA tenderness (L), CVA tenderness (R) - Neurological Exam Neurological exam: Alert, Oriented x3 - Psychiatric Exam Psychiatric exam: Normal Affect, Normal Mood - Skin Skin Exam: Normal Color, Warm Discharge Plan - Discharge Medications Prescriptions: Ciprofloxacin [Cipro] 300 mg PO BID #84 tab Insulin Human Isophane (NPH) [Novolin N] 20 unit SC ACB #1 vial Insulin Human Isophane (NPH) [Novolin N] 30 unit SC HS #1 vial Insulin Human Regular [Novolin R] 14 unit SC ACBD #1 vial Insulin Human Regular [Novolin R] 0 unit SC ACHS #1 vial Lisinopril [Zestril] 10 mg PO DAILY #30 tab Saccharomyces Boulardi [Florastor] 250 mg PO BID #60 cap Vancomycin [Vancomycin Inj] 1,000 mg IVPB DAILY #42 vial - Follow Up Plan Condition: STABLE Disposition: HOME/ ROUTINE Instructions: Ciprofloxacin (By mouth), Lisinopril (By mouth), Insulin NPH/ Regular (By injection), Insulin Human Regular (By injection), Probiotic (By mouth), Cellulitis (DC), Osteomyelitis (DC), Abuse of Alcohol (DC), Anemia (DC) Additional Instructions: Patient stable for discharge per Dr. Fair. Patient will be given prescriptions for two antibiotics: Ciprofloxacin and Vancomycin. He will also be given a prescription for Lisinopril, a blood pressure medication. Patient must receive IV infusion of Vancomycin daily for 6-8 weeks. Pt will be given prescription for diabetes regimen recommended by survey interviewer, Dr. Mcconnell. Patient should follow up with podiatry in the clinic on Saturday, May 13. He has an appointment to see Dr. Hernandez. He should make an appointment to follow up with his PMD. Patient also has appointment in clinic on 05/17/17 @ 9:30AM for diabetes follow up. Patient should return to the ED if symptoms return or worsen. Prescribed meds: Ciprofloxacin 300mg, orally twice daily for 6 weeks Vancomycin 1 gm IV once daily x 6 weeks Lisinopril 10 mg, by mouth once daily $30 Florastor 250mg by mouth, one tablet twice daily #60 Novolin 20 units SC ACB #1 vial Novolin 30 units SC HS #1 vial Regular 14 unit SC ACBD #1 vial Regular Insulin Sliding scale ACHS #1 vial Patient should follow up tomorrow at outpatient infusion center for dose of vancomycin. Patient okay to go home with PICC line. Referrals: [facility] at [facility] [Outside] Davina Hernandez DPM [Staff Provider] - <Juliana Fair V - Last Filed: 05/12/17 12:58> Provider - Provider Date of Admission: 05/04/17 23:12 Attending physician: Johnathon Diaz MD Hospital Course - Lab Results Lab Results: Micro Results 05/05/17 18:38 Leg - Left Gram Stain - Final 05/05/17 18:38 Leg - Left Wound Culture - Final Proteus Mirabilis 05/04/17 23:40 Foot - Left Gram Stain - Final 05/04/17 23:40 Foot - Left Wound Culture - Final Proteus Mirabilis Klebsiella Pneumoniae Ssp Pneu Group G Streptococcus Most Recent Lab Values WBC 7.9 K/uL (4.8-10.8) 05/12/17 08:04 RBC 3.29 Mil/uL (4.40-5.90) L 05/12/17 08:04 Hgb 10.8 g/dL (12.0-18.0) L 05/12/17 08:04 Hct 32.8 % (35.0-51.0) L 05/12/17 08:04 MCV 99.6 fL (80.0-94.0) H 05/12/17 08:04 MCH 32.7 pg (27.0-31.0) H 05/12/17 08:04 MCHC 32.9 g/dL (33.0-37.0) L 05/12/17 08:04 RDW 14.1 % (11.5-14.5) 05/12/17 08:04 Plt Count 318 K/uL (130-400) 05/12/17 08:04 MPV 8.0 fL (7.2-11.7) 05/12/17 08:04 Neut % (Auto) 58.7 % (50.0-75.0) 05/12/17 08:04 Lymph % (Auto) 22.4 % (20.0-40.0) 05/12/17 08:04 [place] % (Auto) 14.4 % (0.0-10.0) H 05/12/17 08:04 Eos % (Auto) 3.9 % (0.0-4.0) 05/12/17 08:04 Baso % (Auto) 0.6 % (0.0-2.0) 05/12/17 08:04 Neut # 4.7 K/uL (1.8-7.0) 05/12/17 08:04 Lymph # 1.8 K/uL (1.0-4.3) 05/12/17 08:04 [place] # 1.1 K/uL (0.0-0.8) H 05/12/17 08:04 Eos # 0.3 K/uL (0.0-0.7) 05/12/17 08:04 Baso # 0.0 K/uL (0.0-0.2) 05/12/17 08:04 ESR 41 mm/hr (0-15) H 05/06/17 07:05 pO2 47 mm/Hg (30-55) 05/04/17 21:28 VBG pH 7.34 (7.32-7.43) 05/04/17 21:28 VBG pCO2 34 mmHg (40-60) L 05/04/17 21:28 VBG HCO3 19.3 mmol/L 05/04/17 21:28 VBG Total CO2 19.3 mmol/L (22-28) L 05/04/17 21:28 VBG O2 Sat (Calc) 84.6 % (40-65) H 05/04/17 21:28 VBG Base Excess -6.6 mmol/L (0.0-2.0) L 05/04/17 21:28 VBG Potassium 3.9 mmol/L (3.6-5.2) 05/04/17 21:28 Sodium 135.0 mmol/l (132-148) 05/04/17 21:28 Chloride 99.0 mmol/L (98-107) 05/04/17 21:28 Glucose 571 mg/dl (75-110) H* D 05/04/17 21:28 Lactate 2.8 mmol/L (0.7-2.1) H 05/04/17 21:28 Crit Value Called To Yaya isabel 05/04/17 21:28 Crit Value Called By Lux 05/04/17 21:28 Crit Value Read Back Y 05/04/17 21:28 Blood Gas Notified Time 213405/04/17 21:28 Sodium 134 mmol/L (132-148) 05/12/17 08:04 Potassium 4.0 mmol/L (3.6-5.2) 05/12/17 08:04 Chloride 96 mmol/L (98-107) L 05/12/17 08:04 Carbon Dioxide 26 mmol/L (22-30) 05/12/17 08:04 Anion Gap 15 (10-20) 05/12/17 08:04 BUN 23 mg/dL (9-20) H 05/12/17 08:04 Creatinine 0.7 MG/DL (0.8-1.5) L 05/12/17 08:04 Est GFR ( Amer) > 60 05/12/17 08:04 Est GFR (Non-Af Amer) > 60 05/12/17 08:04 POC Glucose (mg/dL) 109 mg/dL (65-110) 05/12/17 12:04 Random Glucose 297 mg/dL (75-110) H 05/12/17 08:04 Hemoglobin A1c 14.3 % (4.2-6.5) H D 05/05/17 08:43 Calcium 9.2 mg/dl (8.6-10.4) 05/12/17 08:04 Phosphorus 3.6 mg/dL (2.5-4.5) 05/12/17 08:04 Magnesium 1.7 mg/dL (1.6-2.3) 05/12/17 08:04 Total Bilirubin 0.3 mg/dL (0.2-1.3) 05/12/17 08:04 AST 31 U/L (17-59) 05/12/17 08:04 ALT 42 U/L (21-72) 05/12/17 08:04 Alkaline Phosphatase 58 U/L (38-126) 05/12/17 08:04 Ammonia < 9 umol/L (9-33) L 05/07/17 11:28 Total Protein 6.0 g/dL (6.3-8.3) L 05/12/17 08:04 Albumin 3.0 g/dL (3.5-5.0) L 05/12/17 08:04 Globulin 3.0 gm/dL (2.2-3.9) 05/12/17 08:04 Albumin/Globulin Ratio 1.0 (1.0-2.1) 05/12/17 08:04 Triglycerides 122 mg/dL (0-149) 05/07/17 06:43 Cholesterol 154 mg/dL (0-199) 05/07/17 06:43 LDL Cholesterol Direct 103 mg/dL (0-129) 05/07/17 06:43 HDL Cholesterol 47 mg/dL (30-70) 05/07/17 06:43 Vitamin B12 346 pg/mL (239-931) 05/06/17 13:01 Folate 8.9 ng/mL 05/06/17 13:01 Venous Blood Potassium 3.9 mmol/L (3.6-5.2) 05/04/17 21:28 Random Vancomycin 13.67 ug/mL 05/10/17 20:55 Alcohol, Quantitative 258 mg/dl (0-10) H 05/04/17 20:32 Serum Ketones Trace (NEGATIVE) 05/04/17 20:32 Attending/Attestation - Attestation I have personally seen and examined this patient.: Yes I have fully participated in the care of the patient.: Yes I have reviewed all pertinent clinical information, including history, physical exam and plan: Yes Notes (Text): Patient seen, examined, and case discussed with day-time resident. Patient seen this morning. Discussed results of dopplers and foot xray with the patient. Also, instructed patient he must eat 6 small meals, check his sugars prior breakfast/lunch/dinner/before going to sleep and advised controlled sugars are between 60-100 and if his sugar falls below 60, to take juice and snack. Patient has seen diabetic nurse educator during admission and has been taught. Patient provided medications to be given today at bedside which had been arranged with the pharmacy in conjunction with case management. Patient advised his diabetes puts himself at risk for adverse sequela affect heart, brain, kidneys, eyes, and bones (ie. heart attacks, stroke, kidney failure, blindness, osteomyelitis) and he needs to make diet modifications and engage in exercise to control his diabetes. Patient strongly recommended to follow-up with podiatry and general practitioner in the [facility] for monitoring diabetic foot wound and diabetes management. Patient advised alcohol cessation, increase water intake and make lifestyle modifications. Discharge order and discharge instructions with the patient at bedside. * Patient verbalized understanding and reports he will not miss his appointments. Per direction of ID, patient is prescribed Ciprofloxcin 500mg PO bid for 6 weeks (take with yogurt) and to come to the outpatient transfusion center tomorrow to complete Vancomycin 1 gram IV qdaily for 6 weeks. Arrangement for antibiotic made on Saturday and confirmed with case management Betsy today. * Pt prescribed insulin regimen for diabetes regimen recommended by survey interviewer, Dr. Mcconnell with sufficient insulin vials, blood sugar monitoring and prior teaching conducted during hospitalization. * Novolin 20 units SC ACB * Novolin 30 units SC HS * Regular 14 unit SC ACBD * Regular Insulin Sliding scale ACHS * Patient should follow up with podiatry in the clinic on Saturday, May 13. He has an appointment to see Dr. Hernandez (podiatry). He should make an appointment to follow up with his PMD. Patient also has appointment in clinic on 05/17/17 @ 9: 30AM for diabetes follow up. Patient should return to the ED if symptoms return or worsen. Medications on discharge: Ciprofloxacin 500mg, orally twice daily for 6 weeks Vancomycin 1 gm IV once daily x 6 weeks (outpatient transfusion center) Lisinopril 10 mg, by mouth once daily $30/no refills Florastor 250mg by mouth, one tablet twice daily #60/no refills Novolin 20 units SC ACB Novolin 30 units SC HS Regular 14 unit SC ACBD Regular Insulin Sliding scale ACHS This is a brief summary of patient's hospitalization. Please see EMR for further details.
--- NOTE | 2017-05-12 11:32 | CP.PCM.PN ---
Subjective - Date & Time of Evaluation Date of Evaluation: 05/12/17 Time of Evaluation: 10:20 - Subjective Subjective: 51 year old male patient seen at bedside for infected left foot 1st interspace wound and plantar lateral foot wound. Patient is seen at bedside today resting comfortably, AAOx3 and NAD. Patient denies any pain to his left foot. Patient states he expects to go to rehab tomorrow and will be following up in [facility] the following SaturdayMay 20. Patient denies N/V/F/D/C/SOB/CP. No other pedal complaints at this time. Objective - Vital Signs/Intake and Output Vital Signs (last 24 hours): Temp Pulse Resp BP Pulse Ox 98 F 97 H 20 151/86 H 98 05/12/17 10:15 05/12/17 10:15 05/12/17 10:15 05/12/17 10:15 05/12/17 10:15 Intake and Output: 05/12/17 05/12/17 06:59 18:59 Intake Total 470 Balance 470 - Medications Medications: Current Medications Ciprofloxacin (Cipro) 500 mg PO BID [facility] Last Admin: 05/12/17 10:16 Dose: 500 mg Famotidine (Pepcid) 20 mg PO BID [facility] Last Admin: 05/12/17 10:16 Dose: 20 mg Heparin Sodium (Porcine) (Heparin) 5,000 units SC Q12H [facility] Last Admin: 05/12/17 10:19 Dose: 5,000 units Vancomycin HCl 1,000 mg/ (Sodium Chloride) 250 mls @ 166.6 mls/hr IVPB Q12 [facility] Last Admin: 05/12/17 10:20 Dose: 166.6 mls/hr Insulin Human NPH (Novolin N) 40 unit SC HS KAUSHIK Insulin Human NPH (Novolin N) 30 unit SC ACB KAUSHIK Insulin Human Regular (Novolin R) 0 unit SC ACHS KAUSHIK PRN Reason: Protocol Last Admin: 05/12/17 08:25 Dose: 2 unit Insulin Human Regular (Novolin R) 18 unit SC ACBD [facility] Lisinopril (Zestril) 10 mg PO DAILY [facility] Last Admin: 05/12/17 10:17 Dose: 10 mg Saccharomyces Boulardii (Florastor) 250 mg PO BID [facility] Last Admin: 05/12/17 10:17 Dose: 250 mg Silver Sulfadiazine (Silvadene 1% 20 Gm) 0 ea TOP DAILY [facility]HIK Last Admin: 05/12/17 10:26 Dose: Not Given - Labs Labs: 05/12/17 08:04 05/12/17 08:04 - Constitutional Appears: Well, Non-toxic, No Acute Distress - Extremities Exam Additional comments: Left lower extremity focused exam: Derm: Dry ulceration to plantar lateral hallucal base noted. No purulence, negative probe to bone, no malodor. Approximately 0.8cm x 1.0cm x 0.3cm wound at lateral plantar forefoot with fibrous base, hyperkeratotic roof, no drainage , no malodor, negative probe to bone, hyperkeratotic edges, no edema or erythema. Vascular: DP and PT pulses palpable 2/4, CFT <3sec x 5 digits. Temperature gradient warm to warm Neuro: Gross sensation diminished Ortho: No pain on palpation of 1st interspace periwound area. No pain on palpation of plantar lateral forefoot wound. Extensor substitution hammertoe deformities of digits 2-5. - Neurological Exam Neurological Exam: Alert, Awake, Oriented x3 - Psychiatric Exam Psychiatric exam: Normal Affect, Normal Mood Assessment and Plan - Assessment and Plan (Free Text) Assessment: 51 year old male with L 1st interspace infected ulceration and plantar 4th metatarsal head ulceration secondary to DM Plan: Patient seen and evaluated at bedside Discussed plan in detail with attending, Dr. Hernandez Charts, labs, vitals reviewed = afebrile, WBC 7.9 Wound cx: proteus mirabilis, Klebsiella MRI LLE shows signal abnormality of 4th met head,1st interspace, middle and distal 5th phalanges Wounds on L foot dressed with betadine and DSD Patient to continue IV Vancomycin and po Ciprofloxacin while in house Patient to continue Cipro oral and to go to infusion center at hospital daily for IV Vancomycin 6 weeks as per ID Patient stable for D/C from podiatry standpoint Pt will follow up in podiatry clinic on 05/20/[address] Hernandez Podiatry will continue to follow while in house
[2017-05-12 15:50] VITALS: BP 128/79; PULSE 89; TEMP 97.6
[2017-05-12] MEDS ORDERED: (Novolin R) Insulin Human Regular 100 units/ml vial SC SCH (16:30)
[2017-05-12] MEDS ORDERED: (Novolin N) Insulin Human Isophane (NPH) 100 u/ml 10 ml vial SC SCH (22:00)
[2017-05-13] MEDS ORDERED: (Novolin N) Insulin Human Isophane (NPH) 100 u/ml 10 ml vial SC SCH (07:30)
--- NOTE | 2017-05-13 14:46 | VASCLAB ---
PROCEDURE: Lower Extremity Venous Duplex Exam. HISTORY: b/l leg swelling PRIORS: None. TECHNIQUE: Bilateral common femoral, femoral, popliteal and posterior tibial, peroneal and great saphenous veins were evaluated. Flow was assessed with color Doppler, compressibility, assessment of phasic flow and augmentation response. Report prepared by Saji Joshi, T FINDINGS: RIGHT: 1. Common Femoral Vein: 1.1. Compressibility - Fully compressible: Thrombus - None : Flow - Phasic: Augmentation -Normal: Reflux - . 2. Femoral Vein: 2.1. Compressibility - Fully compressible: Thrombus - None : Flow - Phasic: Augmentation -Normal: Reflux - . 3. Popliteal Vein: 3.1. Compressibility - Fully compressible: Thrombus - None : Flow - Phasic: Augmentation -Normal: Reflux - . 4. Posterior Tibial Vein: 4.1. Compressibility - Fully compressible: Thrombus - None: Flow - : Augmentation -: Reflux - . 5. Peroneal Vein: 5.1. Compressibility - Fully compressible: Thrombus - None: Flow - : Augmentation -: Reflux - . 6. Great Saphenous Vein: 6.1. Compressibility - Fully compressible: Thrombus - None: Flow - : Augmentation - l: Reflux - . LEFT: 1. Common Femoral Vein: 1.1. Compressibility - Fully compressible: Thrombus - None: Flow - Phasic: Augmentation -Normal: Reflux - . 2. Femoral Vein: 2.1. Compressibility - Fully compressible: Thrombus - None: Flow - Phasic: Augmentation -Normal: Reflux - . 3. Popliteal Vein: 3.1. Compressibility - Fully compressible: Thrombus - None : Flow - Phasic: Augmentation -Normal: Reflux - . 4. Posterior Tibial Vein: 4.1. Compressibility - Fully compressible: Thrombus - None: Flow - : Augmentation -: Reflux - . 5. Peroneal Vein: 5.1. Compressibility - Fully compressible: Thrombus - None: Flow - : Augmentation -: Reflux - . 6. Great Saphenous Vein: 6.1. Compressibility - Fully compressible: Thrombus - None: Flow - : Augmentation - : Reflux - . OTHER FINDINGS: Right: None significant. Left: None significant. IMPRESSION: Right: No evidence of deep or superficial vein thrombosis of the right lower extremity. Left: No evidence of deep or superficial vein thrombosis of the left lower extremity.
== END 2017-05-12 14:24 | disposition home or self-care (01) | DRG 294 ==
LOC: C.ER 19:27 → C.9E 23:12 → C.6T 05-05 00:18
PROVIDERS: ADMIT Family Medicine; ATTEND Family Medicine
PROC: 02HV33Z Insertion of Infusion Device into Superior Vena Cava, Percutaneous Approach (ICD-10-PCS; principal; 2017-05-10)
DX: E11.621 Type 2 diabetes mellitus with foot ulcer (principal); L97.529 Non-pressure chronic ulcer of other part of left foot with unspecified severity; E11.65 Type 2 diabetes mellitus with hyperglycemia; L03.116 Cellulitis of left lower limb; F10.230 Alcohol dependence with withdrawal, uncomplicated; Z79.4 Long term (current) use of insulin; E11.628 Type 2 diabetes mellitus with other skin complications; Y90.8 Blood alcohol level of 240 mg/100 ml or more; D53.9 Nutritional anemia, unspecified; B95.62 Methicillin resistant Staphylococcus aureus infection as the cause of diseases classified elsewhere

== ENCOUNTER 2017-07-01 23:03 | Emergency (ER) | payer OTHER ==
[2017-07-01 23:03] VITALS: BMI 26.1
[2017-07-01 23:17] VITALS: BP 133/82; PULSE 87; RESP 18; TEMP 97.8; O2SAT 99
--- NOTE | 2017-07-01 23:37 | C.PDOC ---
History Of Present Illness 51 year old male who presents to the ER requesting to have his PICC line removed , upon further evaluation patient states he does not want his PICC line removed and appears to be intoxicated. Patient has a PICC line on the right arm done by Dr. Brooks for a left foot diabetic ulcer. Denies physical complaints at this time. Time Seen by Provider: 07/01/17 23:25 Chief Complaint (Nursing): Medical Clearance History Per: Patient History/Exam Limitations: no limitations Onset/Duration Of Symptoms: Hrs Current Symptoms Are (Timing): Still Present Recent travel outside of the [place]: No Past Medical History Reviewed: Historical Data, Nursing Documentation, Vital Signs Vital Signs: Last Vital Signs Temp 97.8 F 07/01/17 23:14 Pulse 87 07/01/17 23:14 Resp 18 07/01/17 23:14 BP 133/82 07/01/17 23:14 Pulse Ox 99 07/01/17 23:37 - Medical History PMH: Diabetes, HTN Surgical History: Appendectomy, Cholecystectomy - [facility] Procedures EXCISION OF LEFT FOOT SKIN, EXTERNAL APPROACH (10/17/16) INSERTION OF INFUSION DEV INTO SUP VENA CAVA, PERC APPROACH (05/04/17) OTHER SKIN & SUBQ I D (03/06/14) Family History: States: No Known Family Hx - Social History Hx Tobacco Use: No Hx Alcohol Use: No Hx Substance Use: No - Immunization History Hx Tetanus Toxoid Vaccination: No Hx Influenza Vaccination: No Hx Pneumococcal Vaccination: No Review Of Systems Constitutional: Negative for: Fever, Chills Gastrointestinal: Negative for: Nausea, Vomiting, Diarrhea Skin: Positive for: Other (PICC line on right arm, Left foot ulcer) Physical Exam - Physical Exam Appears: Non-toxic, No Acute Distress, Other (ETOH on breath) Skin: Warm, Dry Head: Atraumatic, Normacephalic Oral Mucosa: Moist Chest: Symmetrical, No Tenderness Cardiovascular: Rhythm Regular, No Murmur Respiratory: Normal Breath Sounds, No Rales, No Rhonchi, No Wheezing Gastrointestinal/Abdominal: Soft, No Tenderness Extremity: Other (Right upper arm PICC line. Left plantar foot ulcer, left foot is filthy) Neurological/Psych: Oriented x3, Normal Speech, Normal Cognition ED Course And Treatment O2 Sat by Pulse Oximetry: 99 (Room air) Pulse Ox Interpretation: Normal Medical Decision Making Medical Decision Making: intoxicated pt w chronic L plantar foot wound with underlying osteomyelitis under tx by Dr. Brooks (ID) questionably asking for PICC line removal, but pt so intoxicated pt does not know what he wants. + prior evals for same. wound cleaned and rebandaged (foot filthy) and PICC line evluated as properly placed and maintained and NOT pulled. Disposition Doctor Will See Patient In The: Office Counseled Patient/Family Regarding: Studies Performed, Diagnosis - Disposition Referrals: Alcoholics Anonymous [Outside] [facility] [Outside] [facility] [Outside] [facility] [Outside] Perez Brooks MD [Staff Provider] - Non [facility] Provider, [Primary Care Provider] - Disposition: HOME/ ROUTINE Disposition Time: 23:37 Condition: GOOD Additional Instructions: follow-up with Dr. Brooks and your Video News Editor. You may follow-up in our [facility] with Dr. Fair as needed also. Your PICC line was NOT removed. Instructions: Abuse of Alcohol (ED), Diabetic Foot Ulcers (ED) Forms: [employer] (Venezuelan) - Clinical Impression Clinical Impression: Alcohol abuse, Chronic ulcer of left foot - Scribe Statement The provider has reviewed the documentation as recorded by the Scribe Perez Jhaveri All medical record entries made by the Scribe were at my direction and personally dictated by me. I have reviewed the chart and agree that the record accurately reflects my personal performance of the history, physical exam, medical decision making, and the department course for this patient. I have also personally directed, reviewed, and agree with the discharge instructions and disposition.
== END 2017-07-01 23:50 | disposition home or self-care (01) ==
LOC: SUPCPDRO 23:03 → C.ER 23:03
DX: E11.621 Type 2 diabetes mellitus with foot ulcer (principal); L97.529 Non-pressure chronic ulcer of other part of left foot with unspecified severity; F10.10 Alcohol abuse, uncomplicated

== ENCOUNTER 2017-07-26 22:29 | Emergency (ER) | payer OTHER ==
[2017-07-26 22:30] VITALS: BMI 26.1
[2017-07-26 22:38] VITALS: RESP 18
[2017-07-26] MEDS ORDERED: Sodium Chloride 0.9% 1,000 ML IV ONE (23:25)
[2017-07-26 23:45] LABS: BASO # 0.1 K/uL (0.0-0.2); BASO % 0.9 % (0.0-2.0); EOS # 0.2 K/uL (0.0-0.7); EOS % 3.6 % (0.0-4.0); HEMATOCRIT 38.7 % (35.0-51.0); LYMPH # 2.1 K/uL (1.0-4.3); LYMPH % 37.9 % (20.0-40.0); MEAN CELL VOLUME 99.2 fL (80.0-94.0); MEAN CORPUSCULAR HEMOGLOBIN 33.1 pg (27.0-31.0); MEAN CORPUSCULAR HGB CONC 33.4 g/dL (33.0-37.0); MEAN PLATELET VOLUME 8.3 fL (7.2-11.7); MONO # 0.6 K/uL (0.0-0.8); MONO % 10.2 % (0.0-10.0); RED CELL DISTRIBUTION WIDTH 13.3 % (11.5-14.5); WHITE BLOOD COUNT 5.6 K/uL (4.8-10.8)
[2017-07-26 23:56] LABS: CHLORIDE 96 mmol/L (98-107); POTASSIUM 4.4 mmol/L (3.6-5.2); SODIUM 135 mmol/L (132-148)
[2017-07-26] MEDS ORDERED: Sodium Chloride 0.9% 1,000 ML ONE (23:57)
[2017-07-26 23:58] LABS: GFR AFRICAN-AMERICAN > 60
[2017-07-26 23:59] LABS: ALB/GLOB RATIO 1.5 (1.0-2.1); ALKALINE PHOSPHATASE 69 U/L (38-126); ALT/SGPT 30 U/L (21-72); AST/SGOT 23 U/L (17-59); BILIRUBIN,TOTAL 0.5 mg/dL (0.2-1.3); BLOOD UREA NITROGEN 12 mg/dL (9-20); CALCIUM 9.6 mg/dl (8.6-10.4); CARBON DIOXIDE 23 mmol/L (22-30)
[2017-07-27 00:01] LABS: GLUCOSE,RANDOM 418 mg/dL (75-110)
[2017-07-27 00:20] LABS: ALCOHOL SERUM 325 mg/dl (0-10)
[2017-07-27] MEDS ORDERED: (Novolin R) Insulin Human Regular 100 units/ml vial IV STA (00:21)
[2017-07-27] MEDS ORDERED: (Novolin R) Insulin Human Regular 100 units/ml vial ONE (00:29)
[2017-07-27] MEDS ORDERED: Sodium Chloride 0.9% 1,000 ML IV ONE (00:41)
--- NOTE | 2017-07-27 00:44 | C.PDOC ---
History Of Present Illness Pt came to the ED intoxicated. Time Seen by Provider: 07/26/17 23:15 Chief Complaint (Nursing): Substance Abuse History Per: Patient History/Exam Limitations: intoxication Onset/Duration Of Symptoms: Unknown Current Symptoms Are (Timing): Still Present Suicide/Self Injury Attempted (Context): None Modifying Factor(s): Alcohol Severity: Moderate Associated Symptoms: denies: Suicidal Thoughts, Suicidal Plan Additional History Per: Prior Records Past Medical History Reviewed: Historical Data, Nursing Documentation, Vital Signs Vital Signs: Last Vital Signs Temp 97.4 F L 07/26/17 22:35 Pulse 75 07/26/17 22:35 Resp 18 07/26/17 22:35 BP 133/84 07/26/17 22:35 Pulse Ox 97 07/27/17 00:46 - Medical History PMH: Diabetes, HTN Other PMH: Alcohol abuse Surgical History: Appendectomy, Cholecystectomy - [facility] Procedures EXCISION OF LEFT FOOT SKIN, EXTERNAL APPROACH (10/17/16) INSERTION OF INFUSION DEV INTO SUP VENA CAVA, PERC APPROACH (05/04/17) OTHER SKIN & SUBQ I D (03/06/14) Family History: States: Unknown Family Hx - Social History Hx Tobacco Use: No Hx Alcohol Use: Yes Hx Substance Use: No - Immunization History Hx Tetanus Toxoid Vaccination: No Hx Influenza Vaccination: No Hx Pneumococcal Vaccination: No Review Of Systems Constitutional: Negative for: Fever Cardiovascular: Negative for: Chest Pain Respiratory: Negative for: Shortness of Breath Gastrointestinal: Negative for: Vomiting, Abdominal Pain Musculoskeletal: Negative for: Neck Pain Skin: Positive for: Other (left foot chronic wound) Neurological: Negative for: Weakness, Numbness, Seizures Physical Exam - Physical Exam Appears: No Acute Distress, Other (AOB, intoxicated) Skin: Warm, Dry Head: Atraumatic, Normacephalic Eye(s): bilateral: PERRL Neck: Normal ROM, Supple Cardiovascular: Rhythm Regular Respiratory: Normal Breath Sounds, No Accessory Muscle Use Gastrointestinal/Abdominal: Soft, No Tenderness Back: No CVA Tenderness Extremity: Normal ROM, Other (Chronic, dry wound on plantar aspect of left foot. ) Pulses: Left Dorsalis Pedis: Normal Neurological/Psych: Oriented x3, Normal Motor, Normal Sensation ED Course And Treatment - Laboratory Results Result Diagrams: 07/26/17 23:42 07/26/17 23:42 Lab Interpretation: Abnormal Interpretation Of Abnormal: Hyperglycemia. Elevated alcohol level. O2 Sat by Pulse Oximetry: 97 Pulse Ox Interpretation: Normal Progress - Interventions Interventions:: Observation, Intravenous fluid - Medications Administered Intravenous: Other (Insulin) - Data Reviewed Data Reviewed: Lab, Old records - Continuity of Care Discussed patient case with:: Patient, ED Nurse Disposition - Disposition Disposition Time: 01:00 Condition: FAIR - Clinical Impression Clinical Impression: Alcohol intoxication, Uncontrolled diabetes mellitus with hyperglycemia, Chronic ulcer of left foot Physician Patient Turnover Patient Signed Over To: Martha Rincon Handoff Comments: to recheck glucose after insulin/IV fluids and to reassess/ dispo pt once sober.
[2017-07-27 05:49] VITALS: BP 135/77; PULSE 100; TEMP 98; O2SAT 96
== END 2017-07-27 05:56 | disposition home or self-care (01) ==
LOC: SUPCPDRO 22:29 → C.ER 22:29
DX: E11.65 Type 2 diabetes mellitus with hyperglycemia (principal); L97.529 Non-pressure chronic ulcer of other part of left foot with unspecified severity; F10.120 Alcohol abuse with intoxication, uncomplicated; Y90.8 Blood alcohol level of 240 mg/100 ml or more; I10 Essential (primary) hypertension
CPT/HCPCS: 80053; 80320; 82009; 82948; 85025; 96360; 96361; 99285; J7040

== ENCOUNTER 2017-11-03 20:19 | Emergency (ER) | payer SELFPAY ==
[2017-11-03 20:19] VITALS: BMI 24.4
--- NOTE | 2017-11-03 20:37 | C.PDOC ---
History Of Present Illness 51M c/o burning sensation in his left foot wound 2 days ago while he was in the shower. he said he has been worrying about so he came in to get it checked. he has a chronic ulcer in the left foot for over 1 year. he is non-compliant with his insulin. he denies any f/c, n/v. no foot pain currently. Time Seen by Provider: 11/03/17 20:36 Chief Complaint (Nursing): Abnormal Skin Integrity Past Medical History Vital Signs: Last Vital Signs Temp 97.5 F L 11/03/17 22:45 Pulse 78 11/03/17 22:45 Resp 18 11/03/17 22:45 BP 116/76 11/03/17 22:45 Pulse Ox 98 11/03/17 22:45 - Medical History PMH: Diabetes, HTN Surgical History: Appendectomy, Cholecystectomy - [facility] Procedures EXCISION OF LEFT FOOT SKIN, EXTERNAL APPROACH (10/17/16) INSERTION OF INFUSION DEV INTO SUP VENA CAVA, PERC APPROACH (05/04/17) OTHER SKIN & SUBQ I D (03/06/14) Family History: States: Other Other Family History: nc - Social History Hx Tobacco Use: No Hx Alcohol Use: Yes Hx Substance Use: No - Immunization History Hx Tetanus Toxoid Vaccination: No Hx Influenza Vaccination: No Hx Pneumococcal Vaccination: No Review Of Systems Constitutional: Negative for: Fever, Chills, Weakness, Malaise Cardiovascular: Negative for: Chest Pain Respiratory: Negative for: Cough, Shortness of Breath Gastrointestinal: Negative for: Nausea, Vomiting Neurological: Negative for: Weakness, Numbness, Headache Physical Exam - Physical Exam Appears: Well, Non-toxic, No Acute Distress Skin: Warm, Dry Head: Atraumatic Eye(s): bilateral: PERRL Oral Mucosa: Moist Cardiovascular: Rhythm Regular Respiratory: No Decreased Breath Sounds, No Accessory Muscle Use Gastrointestinal/Abdominal: Soft, No Tenderness Extremity: Other (1cm ulcer over ball of the left foot, tracks approx 0.5cm deep without evidence of reaching bone. there is granulation tissue at the base without any surrounding erythema (contrary to triage note), no warmth, no drainage. ) Pulses: Left Dorsalis Pedis: Normal, Right Dorsalis Pedis: Normal Neurological/Psych: Oriented x3, Normal Motor, Normal Sensation, Other (no focal deficits) ED Course And Treatment - Laboratory Results Result Diagrams: 11/03/17 20:59 11/03/17 20:59 O2 Sat by Pulse Oximetry: 99 Medical Decision Making Medical Decision Making: disc w pt importance of compliance w meds, plan for f/u, rtr Disposition - Disposition Disposition: HOME/ ROUTINE Disposition Time: 22:59 Condition: GOOD Forms: [facility] (Italian) - Clinical Impression Clinical Impression: Non-healing ulcer of foot, Hyperglycemia, Non compliance w medication regimen
[2017-11-03] MEDS ORDERED: Sodium Chloride 0.9% 1,000 ML IV ONE (20:51)
[2017-11-03] MEDS ORDERED: (Novolin R) Insulin Human Regular 100 units/ml vial IV ONE (20:52)
[2017-11-03] MEDS ORDERED: Sodium Chloride 0.9% 1,000 ML ONE (21:03)
[2017-11-03] MEDS ORDERED: (Novolin R) Insulin Human Regular 100 units/ml vial ONE (21:03)
[2017-11-03 21:10] LABS: BASO # 0.1 K/uL (0.0-0.2); BASO % 1.2 % (0.0-2.0); EOS # 0.5 K/uL (0.0-0.7); EOS % 8.2 % (0.0-4.0); LYMPH # 2.3 K/uL (1.0-4.3); LYMPH % 36.7 % (20.0-40.0); MEAN CELL VOLUME 97.9 fL (80.0-94.0); MEAN CORPUSCULAR HEMOGLOBIN 33.4 pg (27.0-31.0); MEAN CORPUSCULAR HGB CONC 34.1 g/dL (33.0-37.0); MEAN PLATELET VOLUME 9.2 fL (7.2-11.7); MONO # 0.4 K/uL (0.0-0.8); MONO % 6.6 % (0.0-10.0); NEUT % 47.3 % (50.0-75.0); RBC 3.9 Mil/uL (4.40-5.90); RED CELL DISTRIBUTION WIDTH 12.5 % (11.5-14.5); WHITE BLOOD COUNT 6.3 K/uL (4.8-10.8)
[2017-11-03 21:21] LABS: ALB/GLOB RATIO 1.3 (1.0-2.1); ALBUMIN 3.8 g/dL (3.5-5.0); ALT/SGPT 17 U/L (21-72); AST/SGOT 20 U/L (17-59); BLOOD UREA NITROGEN 10 mg/dL (9-20); CALCIUM 9.2 mg/dl (8.6-10.4); GFR AFRICAN-AMERICAN > 60; GFR NON-AFRICAN AMERICAN > 60
[2017-11-03 22:46] VITALS: BP 116/76; PULSE 78; RESP 18; TEMP 97.5
[2017-11-03 23:00] VITALS: O2SAT 99
--- NOTE | 2017-11-04 10:28 | RAD ---
PROCEDURE: Left Foot Radiographs. HISTORY: wound eval for signs of osteo COMPARISON: None available. FINDINGS: BONES: No acute displaced fracture. JOINTS: No dislocation. SOFT TISSUES: Vascular calcifications. No evidence of radiopaque foreign body. OTHER FINDINGS: None. IMPRESSION: No acute findings identified.
== END 2017-11-03 23:22 | disposition home or self-care (01) ==
LOC: C.ER 20:19
DX: E11.621 Type 2 diabetes mellitus with foot ulcer (principal); E11.65 Type 2 diabetes mellitus with hyperglycemia; L97.529 Non-pressure chronic ulcer of other part of left foot with unspecified severity; Z79.4 Long term (current) use of insulin; Z91.14 Patient's other noncompliance with medication regimen
CPT/HCPCS: 73630; 80053; 82948; 85025; 96361; 96374; 99285; J7040

== ENCOUNTER 2017-12-17 19:37 | Inpatient (IN) | payer MEDICAID, OTHER ==
[2017-12-17 19:38] VITALS: BMI 24.4
[2017-12-17] MEDS ORDERED: Piperacillin/Tazobact 3.375 GM in Sodium Chloride 100 ML IVPB SCH (20:45)
--- NOTE | 2017-12-17 20:48 | C.PDOC ---
History Of Present Illness <Raisa [place] - Last Filed: 12/17/17 22:16> <Yefri Brooks - Last Filed: 12/17/17 23:21> CC:"Left Foot Swelling" HPI: 52 year old male with past medical history of diabetes type II presents to the ED with left foot swelling. Patient states he noticed his left foot swollen 3 days ago. He denies trauma to his foot. He denies pain or fever but states he has had chills. Patient states he has been cleaning it and walking less on his foot to not make it worse. He also states he took some antibiotics he found in his house but does not recall what it was called. He states he has not been able to go to the clinic because he has some pending bills. PMD: [facility] Past Medical History: Diabetes Type II Past Surgical History: Cholecystectomy Medications: Metformin 1000mg bid; Insulin -but is currently not taking it because he does not have any more refills Allergies: NKDA Social History: Drinks 2-3 beers per day for the past 2-3 months; denies smoking and illicit drug use. ([place]ais[place]) <Raisa [place] - Last Filed: 12/17/17 22:16> <Yefri Brooks - Last Filed: 12/17/17 23:21> Time Seen by Provider: 12/17/17 20:20 Chief Complaint (Nursing): Lower Extremity Problem/Injury Past Medical History - Medical History PMH: Diabetes, HTN Denies: Chronic Kidney Disease Surgical History: Appendectomy, Cholecystectomy Family History: States: Unknown Family Hx - Social History Hx Tobacco Use: No Hx Alcohol Use: Yes Hx Substance Use: No - Immunization History Hx Tetanus Toxoid Vaccination: No Hx Influenza Vaccination: No Hx Pneumococcal Vaccination: No <[place]aisa [place] - Last Filed: 12/17/17 22:16> Vital Signs: Last Vital Signs Temp 98.2 F 12/17/17 20:07 Pulse 100 H 12/17/17 20:07 Resp 18 12/17/17 20:07 BP 151/127 H 12/17/17 20:07 Pulse Ox 99 12/17/17 22:18 - [facility] Procedures EXCISION OF LEFT FOOT SKIN, EXTERNAL APPROACH (10/17/16) INSERTION OF INFUSION DEV INTO SUP VENA CAVA, PERC APPROACH (05/04/17) OTHER SKIN & SUBQ I D (03/06/14) Review Of Systems Constitutional: Positive for: Chills. Negative for: Fever Cardiovascular: Negative for: Chest Pain, Palpitations Respiratory: Positive for: Cough. Negative for: Shortness of Breath Gastrointestinal: Negative for: Nausea, Vomiting, Diarrhea, Constipation Genitourinary: Negative for: Dysuria Musculoskeletal: Positive for: Other (left foot swelling). Negative for: Foot Pain <Raisa [place] - Last Filed: 12/17/17 22:16> Physical Exam - Physical Exam Appears: Well, No Acute Distress Skin: Warm Head: Atraumatic, Normacephalic Eye(s): bilateral: Normal Inspection, PERRL, EOMI Oral Mucosa: Moist Cardiovascular: Rhythm Regular, Other (tachycardia ) Respiratory: Normal Breath Sounds, No Decreased Breath Sounds, No Accessory Muscle Use, No Rales, No Rhonchi, No Stridor, No Wheezing Gastrointestinal/Abdominal: Normal Exam, Bowel Sounds (normal), Soft, No Tenderness Extremity: No Tenderness, Swelling (left foot swelling), Other (bilateral pedal pulses intact; left plantar foot 3 ulcers) Pulses: Left Dorsalis Pedis: Normal, Right Dorsalis Pedis: Normal Neurological/Psych: Oriented x3, Normal Speech, Normal Cognition <[place]aisa [place] - Last Filed: 12/17/17 22:16> ED Course And Treatment - Laboratory Results Result Diagrams: 12/17/17 21:09 12/17/17 21:09 ECG: Interpreted By Me, Viewed By Me ECG Rhythm: Sinus Tachycardia O2 Sat by Pulse Oximetry: 99 <[place]aisa [place] - Last Filed: 12/17/17 22:16> - Laboratory Results Result Diagrams: 12/17/17 21:09 12/17/17 21:09 <Yefri Brooks - Last Filed: 12/17/17 23:21> Critical Care Time <Raisa [place] - Last Filed: 12/17/17 22:16> - Critical Care Note Total Time (in mins): 60 Documented critical care: time excludes all time spent performing seperately billable procedures. <Yefri Brooks - Last Filed: 12/17/17 23:21> - Critical Care Note Comments: case endorsed to medicine and podiatry they will assume responsibility of care both are aware foot xray demonstrates gas pattern (Yefri Brooks) Medical Decision Making <[place]ais[place] - Last Filed: 12/17/17 22:16> <Yefri Brooks - Last Filed: 12/17/17 23:21> Medical Decision Making: Left Foot Diabetic Ulcer: - WBC: 18.9 - Lactate 1.1 normal - Platelets: 569 - Sodium: 125 - Glucose: 408 - BUN/Cr 18/.7 - f/u blood culture - Vancomycin 1g IV given - Zosyn 3.375gm IV given - NS 1L ordered - EKG: Sinus Tach, LVH - Podiatry Consult: Dr. Hernandez - Spoke with resident Dr. Ayoub who will come to evaluate the patient - Spoke again with resident Dr. Ayoub at 10pm who was in the ER to evaluate the patient - Spoke with Dr. Booker who has accepted the patient to the medicine house service. 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 /DO has examined the patient and agrees with the treatment plan. <Raisa [place] - Last Filed: 12/17/17 22:16>
[2017-12-17] MEDS ORDERED: Vancomycin 1 gm/NS 200 ml 1 GM/200 ML BAG IVPB ONE (21:00)
[2017-12-17] MEDS ORDERED: Piperacillin/Tazobact 3.375 gm 100 ML IVPB ONE (21:05)
[2017-12-17 21:16] LABS: BASO # 0.3 K/uL (0.0-0.2); BASO % 1.4 % (0.0-2.0); EOS # 0.1 K/uL (0.0-0.7); EOS % 0.3 % (0.0-4.0); HEMOGLOBIN 11.7 g/dL (12.0-18.0); LYMPH # 0.8 K/uL (1.0-4.3); MEAN CORPUSCULAR HEMOGLOBIN 32.6 pg (27.0-31.0); MEAN CORPUSCULAR HGB CONC 34.5 g/dL (33.0-37.0); MEAN PLATELET VOLUME 7.2 fL (7.2-11.7); MONO # 1.2 K/uL (0.0-0.8); MONO % 6.4 % (0.0-10.0); NEUT # 16.6 K/uL (1.8-7.0); NEUT % 87.9 % (50.0-75.0); NRBC % 0.1 % (0.0-2.0); RED CELL DISTRIBUTION WIDTH 13.4 % (11.5-14.5)
[2017-12-17 21:20] LABS: MEAN CELL VOLUME 94.5 fL (80.0-94.0); PLATELET COUNT 569 K/uL (130-400); WHITE BLOOD COUNT 18.9 K/uL (4.8-10.8)
[2017-12-17 21:31] LABS: ALB/GLOB RATIO 0.7 (1.0-2.1); ALBUMIN 3.3 g/dL (3.5-5.0); ALT/SGPT 22 U/L (21-72); AST/SGOT 14 U/L (17-59); BLOOD UREA NITROGEN 18 mg/dL (9-20); CALCIUM 9.6 mg/dl (8.6-10.4); GFR AFRICAN-AMERICAN > 60; GFR NON-AFRICAN AMERICAN > 60
[2017-12-17] MEDS ORDERED: Sodium Chloride 0.9% 1,000 ML IV ONE ×2 (21:40→22:03)
[2017-12-17] MEDS ORDERED: (Novolin R) Insulin Human Regular 100 units/ml vial IV ONE (21:57)
[2017-12-17 22:03] LABS: VENOUS BLOOD GAS BASE EXCESS -1.6 mmol/L (0.0-2.0); VENOUS BLOOD GAS PCO2 31 mmHg (40-60); VENOUS BLOOD GAS PO2 43 mm/Hg (30-55); VENOUS BLOOD PH 7.45 (7.32-7.43)
--- NOTE | 2017-12-17 22:04 | CP.PCM.CON ---
<Quentin Ayoub - Last Filed: 12/18/17 00:53> History of Present Illness - History of Present Illness History of Present Illness: Podiatry Consult Note- Dr. Hernandez 52 y.o male with PMH of HTN and DM presents to the ED for infected left foot ulceration. Patient is seen with family members including daugther at bedside during visitation. Patient reports that he has had this ulceration for a very long time, reports over 6 months+. The ulceration started after he stepped on a metal. He reports that he has been cleaning his ulceration with betadine and dsd alone at home daily. Patient reports that there was increase swelling and redness to his left foot for the last 3-4 days. He also noted drainage from the ulceration and describe the drainage yellow. 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 Patient rates his pain today 5/10 and describes the pain as a throbbing and stabbing pain to the left foot. He denies nausea, fever, shortness of breath, chest pain, chills or fever. Patient reports nothing to eat since 2pm, had a cup of water 9pm. PMH: HTN and DM PSH: gallbladder removal SH: denies smoking or illicit drug use, reports drinking 2-3 beers daily over 15 years ALL: NKDA MEDS: metformin and insulin, states that he ran out of the insulin 4 days ago FH: father- stomach cancer, mother- DM Past Patient History - Infectious Disease Hx of Infectious Diseases: None - Past Medical History & Family History Past Medical History?: Yes - Past Social History Smoking Status: Never Smoked - CARDIAC Hx Hypertension: Yes - PULMONARY Hx Respiratory Disorders: No - NEUROLOGICAL Hx Neurological Disorder: No - HEENT Hx HEENT Problems: No - RENAL Hx Chronic Kidney Disease: No - ENDOCRINE/METABOLIC Hx Endocrine Disorders: Yes Hx Diabetes Mellitus Type 2: Yes - HEMATOLOGICAL/ONCOLOGICAL Hx Blood Disorders: No Hx Blood Transfusions: No Hx Blood Transfusion Reaction: No - INTEGUMENTARY Hx Dermatological Problems: Yes Hx Cellulitis: Yes (OSTEOMYELITIS LEFT FOOT) - MUSCULOSKELETAL/RHEUMATOLOGICAL Hx Musculoskeletal Disorders: No Hx Falls: No - GASTROINTESTINAL Hx Gastrointestinal Disorders: No - GENITOURINARY/GYNECOLOGICAL Hx Genitourinary Disorders: No - PSYCHIATRIC Hx Substance Use: No - SURGICAL HISTORY Hx Appendectomy: Yes Hx Cholecystectomy: Yes - ANESTHESIA Hx Anesthesia: Yes Hx Anesthesia Reactions: No Hx Malignant Hyperthermia: No Meds Allergies/Adverse Reactions: Allergies Allergy/AdvReac Type Severity Reaction Status Date / Time No Known Allergies Allergy Verified 12/17/17 20:17 - Medications Medications: Current Medications Piperacillin Sod/Tazobactam (Sod 3.375 gm/ Sodium Chloride) 100 mls @ 200 mls/ hr IVPB Q6H KAUSHIK PRN Reason: Protocol Last Admin: 12/17/17 21:21 Dose: 200 mls/hr Vancomycin/Sodium Chloride (Vancomycin 1 Gm/Ns 200 Ml) 1 gm in 200 mls @ 133 mls/hr IVPB ONCE ONE Stop: 12/17/17 22:30 Sodium Chloride (Sodium Chloride 0.9%) 1,000 mls @ 1,000 mls/hr IV .Q1H ONE Stop: 12/17/17 22:39 Last Admin: 12/17/17 21:41 Dose: 1,000 mls/hr Physical Exam - Constitutional Appears: Well, Non-toxic, No Acute Distress - Extremities Exam Extremities exam: Negative for: calf tenderness Additional comments: Vasc: DP and PT 1/4 bilaterally, CFT < 3 seconds x 10 digits. Temperature gradient to the left LE is warm to warm, right LE WNL Ortho: moderate pain with palpation to the entire left foot, most severe to the lateral aspect of left foot, no pain with calf squeeze bilaterally Neuro: gross sensation intact, protective sensation slightly diminished Derm: ulceration located at the lateral plantar forefoot at sub metatarsal measuring approximately 2.0 cm x 2.0cm x 0.4cm with 100% fibrous wound base, moderate purulence drainage, erythema to the entire left foot, malodorous, ulceration probe to bone, severe edema with fluctuance noted multiple clusters of tiny ulcerations at the plantar midfoot, with purulence drainage and gas bubbles noted, malodorous - Neurological Exam Neurological exam: Alert, Oriented x3 - Psychiatric Exam Psychiatric exam: Normal Affect, Normal Mood Results - Vital Signs Recent Vital Signs: Last Vital Signs Temp 98.2 F 12/17/17 20:07 Pulse 100 H 12/17/17 20:07 Resp 18 12/17/17 20:07 BP 151/127 H 12/17/17 20:07 Pulse Ox 99 12/17/17 21:35 - Labs Result Diagrams: 12/17/17 21:09 12/17/17 21:09 Labs: Laboratory Results - last 24 hr 12/17/17 12/17/17 21:09 21:09 WBC 18.9 H D RBC 3.60 L Hgb 11.7 L Hct 34.0 L MCV 94.5 H D MCH 32.6 H MCHC 34.5 RDW 13.4 Plt Count 569 H D MPV 7.2 Neut % (Auto) 87.9 H Lymph % (Auto) 4.0 L Gilmer % (Auto) 6.4 Eos % (Auto) 0.3 Baso % (Auto) 1.4 Neut # (Auto) 16.6 H Lymph # (Auto) 0.8 L Gilmer # (Auto) 1.2 H Eos # (Auto) 0.1 Baso # (Auto) 0.3 H Sodium 125 L Potassium 4.5 Chloride 89 L Carbon Dioxide 23 Anion Gap 18 BUN 18 Creatinine 0.7 L Est GFR ( Amer) > 60 Est GFR (Non-Af Amer) > 60 Random Glucose 408 H* Calcium 9.6 Total Bilirubin 0.8 AST 14 L D ALT 22 Alkaline Phosphatase 110 Total Protein 7.9 Albumin 3.3 L Globulin 4.6 H Albumin/Globulin Ratio 0.7 L Assessment & Plan - Assessment and Plan (Free Text) Assessment: 52 y.o male with PMH of HTN and DM presents to the ED for infected left foot ulceration with gas emphysema Plan: -Patient examined and evaluated -Discussed plan in details with attending Dr Hernandez -Labs, vitals, chart reviewed- leukocytosis WBC= 18.9 -X-ray left foot- gas emphysema noted dorsum and plantar aspect of midfoot read by me -Patient consented to I and D of the left foot at bedside after careful explanation of risks, benefits, complications and alternatives total of 17 cc of .25% marcaine plain given in a local ankle block fashion to left ankle two incision made of the dorsum midfoot, plantar medial arch, measuring approximately 2 cm deep to the level of tendon dissecting scissor used to open surrounding flushed with copious amount of saline solution with mixed betadine wound culture taken and sent to pathology iodoform used to pack surgical incision as well as plantar ulceration foot dressed with betadine soaked gauze, dsd, abx and kerlix -X-rays ordered for s/p bedside i and d of left foot -X-rays ordered for left tib-fib to rule out gas emphysema tracking up -Patient to the OR at 7:30 AM Saturday for incision and drainage of left foot abscess and debridement of all nonviable tissue -Ordered NPO status, nothng to eat or drink after midnight -Pending medical clearance -C/w iv abx <Yefri Brooks M - Last Filed: 12/20/17 08:33> Meds - Medications Medications: Current Medications Piperacillin Sod/Tazobactam (Sod 3.375 gm/ Sodium Chloride) 100 mls @ 200 mls/ hr IVPB Q6H KAUSHIK PRN Reason: Protocol Last Admin: 12/17/17 21:21 Dose: 200 mls/hr Physical Exam - Cardiovascular Exam Cardiovascular Exam: REGULAR RHYTHM - GI/Abdominal Exam GI & Abdominal Exam: Normal Bowel Sounds, Soft - Rectal Exam Rectal Exam: Deferred - Back Exam Back exam: NORMAL INSPECTION - Psychiatric Exam Psychiatric exam: Normal Affect, Normal Mood Results - Vital Signs Recent Vital Signs: Last Vital Signs Temp 98.2 F 12/17/17 20:07 Pulse 100 H 12/17/17 20:07 Resp 18 12/17/17 20:07 BP 151/127 H 12/17/17 20:07 Pulse Ox 99 12/17/17 22:18 - Labs Result Diagrams: 12/20/17 08:14 12/19/17 07:55 Labs: Laboratory Results - last 24 hr 12/17/17 12/17/17 12/17/17 21:09 21:09 22:00 WBC 18.9 H D RBC 3.60 L Hgb 11.7 L Hct 34.0 L MCV 94.5 H D MCH 32.6 H MCHC 34.5 RDW 13.4 Plt Count 569 H D MPV 7.2 Neut % (Auto) 87.9 H Lymph % (Auto) 4.0 L Gilmer % (Auto) 6.4 Eos % (Auto) 0.3 Baso % (Auto) 1.4 Neut # (Auto) 16.6 H Lymph # (Auto) 0.8 L Gilmer # (Auto) 1.2 H Eos # (Auto) 0.1 Baso # (Auto) 0.3 H Neutrophils % (Manual) 92 H Lymphocytes % (Manual) 3 L Monocytes % (Manual) 5 Platelet Estimate Slightly increased H Anisocytosis (manual) Slight PT INR APTT pO2 43 VBG pH 7.45 H VBG pCO2 31 L VBG HCO3 23.2 VBG Total CO2 22.5 VBG O2 Sat (Calc) 86.8 H VBG Base Excess -1.6 L VBG Potassium 4.0 Glucose 375 H Lactate 1.1 Sodium 125 L 126.0 L Potassium 4.5 Chloride 89 L 93.0 L Carbon Dioxide 23 Anion Gap 18 BUN 18 Creatinine 0.7 L Est GFR ( Amer) > 60 Est GFR (Non-Af Amer) > 60 POC Glucose (mg/dL) Random Glucose 408 H* Calcium 9.6 Total Bilirubin 0.8 AST 14 L D ALT 22 Alkaline Phosphatase 110 Total Protein 7.9 Albumin 3.3 L Globulin 4.6 H Albumin/Globulin Ratio 0.7 L Venous Blood Potassium 4.0 12/17/17 12/17/17 22:10 23:13 WBC RBC Hgb Hct MCV MCH MCHC RDW Plt Count MPV Neut % (Auto) Lymph % (Auto) Gilmer % (Auto) Eos % (Auto) Baso % (Auto) Neut # (Auto) Lymph # (Auto) Gilmer # (Auto) Eos # (Auto) Baso # (Auto) Neutrophils % (Manual) Lymphocytes % (Manual) Monocytes % (Manual) Platelet Estimate Anisocytosis (manual) PT 15.0 H INR 1.3 APTT 27 pO2 VBG pH VBG pCO2 VBG HCO3 VBG Total CO2 VBG O2 Sat (Calc) VBG Base Excess VBG Potassium Glucose Lactate Sodium Potassium Chloride Carbon Dioxide Anion Gap BUN Creatinine Est GFR ( Amer) Est GFR (Non-Af Amer) POC Glucose (mg/dL) 202 H Random Glucose Calcium Total Bilirubin AST ALT Alkaline Phosphatase Total Protein Albumin Globulin Albumin/Globulin Ratio Venous Blood Potassium Addendum Addendum: 12/20/17 08:32 I did not take part in the patient consult evaluation.
[2017-12-17] MEDS ORDERED: (Novolin R) Insulin Human Regular 100 units/ml vial ONE (22:07)
[2017-12-17 22:09] LABS: LYMPHOCYTE 3 % (20-40); MONOCYTE 5 % (0-10); NEUTROPHIL 92 % (50-75); TOTAL CELLS COUNTED 100
[2017-12-17 22:10] LABS: ANISOCYTOSIS SLIGHT; PLATELET ESTIMATE SLIGHTLY INCREASED (NORMAL)
[2017-12-17 22:21] LABS: INR 1.3
[2017-12-17] MEDS ORDERED: Sodium Chloride 0.9% 1,000 ML ONE (22:37)
[2017-12-17] MEDS ORDERED: Bupivacaine 0.25% Inj(30mL) IJ ONE (22:55)
[2017-12-17] MEDS ORDERED: Insulin Detemir 100 units/ml Vial (Levemir) SC SCH (23:45)
--- NOTE | 2017-12-18 01:01 | CP.PCM.HP ---
<IvanGabriel R - Last Filed: 12/18/17 00:52> History of Present Illness - History of Present Illness History of Present Illness: CC: "my left foot hurts" HPI: Mr Cordova is a 52 year old male with a PMHx of uncontrolled DM, HTN who presented to [facility] because of a left foot ulceration. He states he' s had a lesion in the same area for the past 8 months (he was admitted in 2016 for similar issue). The ulceration started when he stepped on a piece of metal. He reports that he has been cleaning his ulceration with betadine and dsd alone at home daily. Patient reports that there was increase swelling and redness to his left foot for the last 3-4 days. He also noted drainage from the ulceration and describe the drainage yellow (but no blood). 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 In the past he has been told to follow up with [facility] but patient did not do so. He is not compliant with his home insulin and states he stopped taking his insulin 4 days ago as he ran out. He does not check his sugar at home. He denies nausea, fever, shortness of breath, chest pain, chills or fever. PMD: Dr Marr (states he has never been to [facility]) PMHx: HTN and DM PSHx: gallbladder removal Allergies: NKDA Home Meds: metformin 1000 PO BID and insulin 20u, states that he ran out of the insulin 4 days ago, Lisinopril 10mg PO QD FamHx: father- stomach cancer, mother- DM SocialHx: denies smoking or illicit drug use, reports drinking 2-3 beers daily over 15 years Present on Admission - Present on Admission Any Indicators Present on Admission: No Review of Systems - Constitutional Constitutional: Weight Loss. absent: Chills, Fever, Headache, Lethargy - EENT Eyes: absent: Change in Vision - Cardiovascular Cardiovascular: absent: Chest Pain, Chest Pain at Rest, Dyspnea, Dyspnea on Exertion, Irregular Heart Rhythm, Lightheadedness, Palpitations, Rapid Heart Rate - Respiratory Respiratory: Cough. absent: Hemoptysis, Wheezing, Stridor, Change in Mucous Color - Gastrointestinal Gastrointestinal: absent: Abdominal Pain, Diarrhea - Genitourinary Genitourinary: absent: Dysuria - Integumentary Integumentary: Lesions. absent: Bleeding Lesions, Rash - Neurological Neurological: absent: Dizziness Past Patient History - Infectious Disease Hx of Infectious Diseases: None - Past Medical History & Family History Past Medical History?: Yes - Past Social History Smoking Status: Never Smoked - CARDIAC Hx Hypertension: Yes - PULMONARY Hx Respiratory Disorders: No - NEUROLOGICAL Hx Neurological Disorder: No - HEENT Hx HEENT Problems: No - RENAL Hx Chronic Kidney Disease: No - ENDOCRINE/METABOLIC Hx Endocrine Disorders: Yes Hx Diabetes Mellitus Type 2: Yes - HEMATOLOGICAL/ONCOLOGICAL Hx Blood Disorders: No Hx Blood Transfusions: No Hx Blood Transfusion Reaction: No - INTEGUMENTARY Hx Dermatological Problems: Yes Hx Cellulitis: Yes (OSTEOMYELITIS LEFT FOOT) - MUSCULOSKELETAL/RHEUMATOLOGICAL Hx Musculoskeletal Disorders: No Hx Falls: No - GASTROINTESTINAL Hx Gastrointestinal Disorders: No - GENITOURINARY/GYNECOLOGICAL Hx Genitourinary Disorders: No - PSYCHIATRIC Hx Substance Use: No - SURGICAL HISTORY Hx Appendectomy: Yes Hx Cholecystectomy: Yes - ANESTHESIA Hx Anesthesia: Yes Hx Anesthesia Reactions: No Hx Malignant Hyperthermia: No Meds Allergies/Adverse Reactions: Allergies Allergy/AdvReac Type Severity Reaction Status Date / Time No Known Allergies Allergy Verified 12/17/17 20:17 Physical Exam - Constitutional Appears: Non-toxic, No Acute Distress, Older Than Stated Age - Head Exam Head Exam: ATRAUMATIC, NORMAL INSPECTION - Eye Exam Eye Exam: EOMI Pupil Exam: PERRL - ENT Exam ENT Exam: Mucous Membranes Moist - Neck Exam Neck exam: Positive for: Normal Inspection. Negative for: Lymphadenopathy, Tenderness - Respiratory Exam Respiratory Exam: Clear to Auscultation Bilateral, NORMAL BREATHING PATTERN. absent: Rales, Rhonchi, Wheezes - Cardiovascular Exam Cardiovascular Exam: REGULAR RHYTHM, +S1, +S2. absent: Bradycardia, Tachycardia , JVD, Systolic Murmur - GI/Abdominal Exam GI & Abdominal Exam: Normal Bowel Sounds, Soft. absent: Distended, Guarding, Hernia, Mass, Rigid, Tenderness - Rectal Exam Rectal Exam: Deferred - Extremities Exam Additional comments: Left foot wrapped in gauze - gauze c/d/i Sensation to feet intact b/l Pulses strong in feet b/l - Back Exam Back exam: NORMAL INSPECTION. absent: CVA tenderness (L), CVA tenderness (R) - Neurological Exam Neurological exam: Alert, CN II-XII Intact, Oriented x3 - Psychiatric Exam Psychiatric exam: Normal Affect, Normal Mood - Skin Skin Exam: Dry, Intact, Warm Results - Vital Signs Recent Vital Signs: Last Vital Signs Temp 99 F 12/18/17 00:35 Pulse 100 H 12/18/17 00:35 Resp 20 12/18/17 00:35 BP 143/72 12/18/17 00:35 Pulse Ox 94 L 12/18/17 00:35 - Labs Result Diagrams: 12/17/17 21:09 12/17/17 21:09 Labs: Laboratory Results - last 24 hr 12/17/17 12/17/17 12/17/17 21:09 21:09 22:00 WBC 18.9 H D RBC 3.60 L Hgb 11.7 L Hct 34.0 L MCV 94.5 H D MCH 32.6 H MCHC 34.5 RDW 13.4 Plt Count 569 H D MPV 7.2 Neut % (Auto) 87.9 H Lymph % (Auto) 4.0 L Emery % (Auto) 6.4 Eos % (Auto) 0.3 Baso % (Auto) 1.4 Neut # (Auto) 16.6 H Lymph # (Auto) 0.8 L Emery # (Auto) 1.2 H Eos # (Auto) 0.1 Baso # (Auto) 0.3 H Neutrophils % (Manual) 92 H Lymphocytes % (Manual) 3 L Monocytes % (Manual) 5 Platelet Estimate Slightly increased H Anisocytosis (manual) Slight PT INR APTT pO2 43 VBG pH 7.45 H VBG pCO2 31 L VBG HCO3 23.2 VBG Total CO2 22.5 VBG O2 Sat (Calc) 86.8 H VBG Base Excess -1.6 L VBG Potassium 4.0 Glucose 375 H Lactate 1.1 Sodium 125 L 126.0 L Potassium 4.5 Chloride 89 L 93.0 L Carbon Dioxide 23 Anion Gap 18 BUN 18 Creatinine 0.7 L Est GFR ( Amer) > 60 Est GFR (Non-Af Amer) > 60 POC Glucose (mg/dL) Random Glucose 408 H* Calcium 9.6 Total Bilirubin 0.8 AST 14 L D ALT 22 Alkaline Phosphatase 110 Total Protein 7.9 Albumin 3.3 L Globulin 4.6 H Albumin/Globulin Ratio 0.7 L Venous Blood Potassium 4.0 12/17/17 12/17/17 22:10 23:13 WBC RBC Hgb Hct MCV MCH MCHC RDW Plt Count MPV Neut % (Auto) Lymph % (Auto) Emery % (Auto) Eos % (Auto) Baso % (Auto) Neut # (Auto) Lymph # (Auto) Emery # (Auto) Eos # (Auto) Baso # (Auto) Neutrophils % (Manual) Lymphocytes % (Manual) Monocytes % (Manual) Platelet Estimate Anisocytosis (manual) PT 15.0 H INR 1.3 APTT 27 pO2 VBG pH VBG pCO2 VBG HCO3 VBG Total CO2 VBG O2 Sat (Calc) VBG Base Excess VBG Potassium Glucose Lactate Sodium Potassium Chloride Carbon Dioxide Anion Gap BUN Creatinine Est GFR ( Amer) Est GFR (Non-Af Amer) POC Glucose (mg/dL) 202 H Random Glucose Calcium Total Bilirubin AST ALT Alkaline Phosphatase Total Protein Albumin Globulin Albumin/Globulin Ratio Venous Blood Potassium Assessment & Plan (1) Diabetic infection of left foot Assessment and Plan: 52 year old male with PMHx of HTN and DM presents to the ED for infected left foot ulceration with gas emphysema: (+) Leukocytosis 18.9; afebrile Infectious Disease consult, Dr Brooks Podiatry consult, Dr Hernandez * s/p bedside I&D 12/18/17 * Patient to the OR at 7:30 AM Saturday for incision and drainage of left foot abscess and debridement of all nonviable tissue (made NPO) F/U wound Cx, blood Cx Dilaudid 0.5mg IVP Q4H PRN for pain Meropenem 500mg IV Q6H Vancomycin 1g IV Q12H Imaging: X-ray left foot - gas emphysema noted dorsum and plantar aspect of midfoot X-rays ordered for s/p bedside i and d of left foot X-rays ordered for left tib-fib to rule out gas emphysema tracking up Status: Acute Priority: High (2) HTN (hypertension) Assessment and Plan: BP well controlled Cont home med Lisinopril 10mg PO QD (renal protective as well) Status: Chronic Priority: Medium (3) Uncontrolled diabetes mellitus Assessment and Plan: Accuchecks Q6H Levemir 15u SC HS ISS SC Q6H medium dose F/U HgbA1C Status: Acute Priority: High (4) Prophylactic measure Assessment and Plan: SCD contraindicated, Lovenox contraindicated due to OR Protonix 40mg PO QD NPO for now Status: Acute Priority: Low <Niko Booker P - Last Filed: 12/18/17 08:34> Results - Vital Signs Recent Vital Signs: Last Vital Signs Temp 98.6 F 12/18/17 07:15 Pulse 96 H 12/18/17 07:15 Resp 20 12/18/17 07:15 BP 151/73 H 12/18/17 07:15 Pulse Ox 96 12/18/17 07:15 - Labs Result Diagrams: 12/18/17 06:50 12/18/17 06:50 Labs: Laboratory Results - last 24 hr 12/17/17 12/17/17 12/17/17 21:09 21:09 22:00 WBC 18.9 H D RBC 3.60 L Hgb 11.7 L Hct 34.0 L MCV 94.5 H D MCH 32.6 H MCHC 34.5 RDW 13.4 Plt Count 569 H D MPV 7.2 Neut % (Auto) 87.9 H Lymph % (Auto) 4.0 L Emery % (Auto) 6.4 Eos % (Auto) 0.3 Baso % (Auto) 1.4 Neut # (Auto) 16.6 H Lymph # (Auto) 0.8 L Emery # (Auto) 1.2 H Eos # (Auto) 0.1 Baso # (Auto) 0.3 H Neutrophils % (Manual) 92 H Lymphocytes % (Manual) 3 L Monocytes % (Manual) 5 Platelet Estimate Slightly increased H Anisocytosis (manual) Slight PT INR APTT pO2 43 VBG pH 7.45 H VBG pCO2 31 L VBG HCO3 23.2 VBG Total CO2 22.5 VBG O2 Sat (Calc) 86.8 H VBG Base Excess -1.6 L VBG Potassium 4.0 Glucose 375 H Lactate 1.1 Sodium 125 L 126.0 L Potassium 4.5 Chloride 89 L 93.0 L Carbon Dioxide 23 Anion Gap 18 BUN 18 Creatinine 0.7 L Est GFR ( Amer) > 60 Est GFR (Non-Af Amer) > 60 POC Glucose (mg/dL) Random Glucose 408 H* Hemoglobin A1c Calcium 9.6 Total Bilirubin 0.8 AST 14 L D ALT 22 Alkaline Phosphatase 110 Total Protein 7.9 Albumin 3.3 L Globulin 4.6 H Albumin/Globulin Ratio 0.7 L Venous Blood Potassium 4.0 12/17/17 12/17/17 12/18/17 22:10 23:13 05:55 WBC RBC Hgb Hct MCV MCH MCHC RDW Plt Count MPV Neut % (Auto) Lymph % (Auto) Emery % (Auto) Eos % (Auto) Baso % (Auto) Neut # (Auto) Lymph # (Auto) Emery # (Auto) Eos # (Auto) Baso # (Auto) Neutrophils % (Manual) Lymphocytes % (Manual) Monocytes % (Manual) Platelet Estimate Anisocytosis (manual) PT 15.0 H INR 1.3 APTT 27 pO2 VBG pH VBG pCO2 VBG HCO3 VBG Total CO2 VBG O2 Sat (Calc) VBG Base Excess VBG Potassium Glucose Lactate Sodium Potassium Chloride Carbon Dioxide Anion Gap BUN Creatinine Est GFR ( Amer) Est GFR (Non-Af Amer) POC Glucose (mg/dL) 202 H 182 H Random Glucose Hemoglobin A1c Calcium Total Bilirubin AST ALT Alkaline Phosphatase Total Protein Albumin Globulin Albumin/Globulin Ratio Venous Blood Potassium 12/18/17 12/18/17 12/18/17 06:50 06:50 06:50 WBC 17.7 H RBC 3.17 L Hgb 10.3 L Hct 29.6 L MCV 93.4 MCH 32.5 H MCHC 34.8 RDW 13.2 Plt Count 435 H D MPV 7.4 Neut % (Auto) 82.3 H Lymph % (Auto) 7.6 L Emery % (Auto) 9.3 Eos % (Auto) 0.6 Baso % (Auto) 0.2 Neut # (Auto) 14.6 H Lymph # (Auto) 1.3 Emery # (Auto) 1.6 H Eos # (Auto) 0.1 Baso # (Auto) 0.0 Neutrophils % (Manual) Lymphocytes % (Manual) Monocytes % (Manual) Platelet Estimate Anisocytosis (manual) PT INR APTT pO2 VBG pH VBG pCO2 VBG HCO3 VBG Total CO2 VBG O2 Sat (Calc) VBG Base Excess VBG Potassium Glucose Lactate Sodium 131 L Potassium 3.4 L Chloride 98 Carbon Dioxide 20 L Anion Gap 16 BUN 12 Creatinine 0.5 L Est GFR ( Amer) > 60 Est GFR (Non-Af Amer) > 60 POC Glucose (mg/dL) Random Glucose 183 H Hemoglobin A1c 12.3 H Calcium 8.6 Total Bilirubin 0.8 AST 144 H D ALT 71 Alkaline Phosphatase 350 H D Total Protein 6.4 Albumin 2.6 L D Globulin 3.8 Albumin/Globulin Ratio 0.7 L Venous Blood Potassium Attending/Attestation - Attestation I have personally seen and examined this patient.: Yes I have fully participated in the care of the patient.: Yes I have reviewed all pertinent clinical information: Yes Notes (Text): Assessment * Severe infection abscess, gas in left foot, suspect osteo strongly, patient is anxious and reluctant, agreed for I and D last night but needs more and aggressive debridement. * Un controlled dm ever prior to this infection, due to noncompliance * h/o om in 4th left metatarsal head last yr. Plan * Broad spectrum abx * ID consult * Podiatry to do debridement/amputation as the patient allows, alternative is to do MRI prior to surgery. * Target euglycemia, started lesser dose of long acting 15, and sliding scale coverage as patient was off the insulin and had weight loss, if patient starts to eat will need short acting insulin TIDAC. * GI/DVT prophyalxis
[2017-12-18] MEDS: HYDROmorphone 0.5 mg/0.5 ml ISec IVP PRN ×3 (01:10→21:23)
[2017-12-18] MEDS: Meropenem 500 MG in Sodium Chloride 0.9% 100 ML IVPB SCH ×4 (01:30→19:15)
[2017-12-18] MEDS: (Novolin R) Insulin Human Regular 100 units/ml vial SC SCH ×4 (06:00→16:30)
[2017-12-18 07:06] LABS: BASO % 0.2 % (0.0-2.0); EOS # 0.1 K/uL (0.0-0.7); EOS % 0.6 % (0.0-4.0); HEMOGLOBIN 10.3 g/dL (12.0-18.0); LYMPH # 1.3 K/uL (1.0-4.3); LYMPH % 7.6 % (20.0-40.0); MEAN CELL VOLUME 93.4 fL (80.0-94.0); MEAN CORPUSCULAR HEMOGLOBIN 32.5 pg (27.0-31.0); MEAN CORPUSCULAR HGB CONC 34.8 g/dL (33.0-37.0); MEAN PLATELET VOLUME 7.4 fL (7.2-11.7); MONO # 1.6 K/uL (0.0-0.8); MONO % 9.3 % (0.0-10.0); NEUT # 14.6 K/uL (1.8-7.0); NEUT % 82.3 % (50.0-75.0); RBC 3.17 Mil/uL (4.40-5.90); RED CELL DISTRIBUTION WIDTH 13.2 % (11.5-14.5); WHITE BLOOD COUNT 17.7 K/uL (4.8-10.8)
[2017-12-18 07:17] LABS: PLATELET COUNT 435 K/uL (130-400)
[2017-12-18] MEDS ORDERED: Lidocaine Hydrochloride 5 ML INJ ONE (07:30)
[2017-12-18] MEDS ORDERED: Propofol 10 mg/ml Inj (20 ML) ONE (07:30)
[2017-12-18] MEDS ORDERED: Midazolam 2 MG/2 ML VIAL ONE (07:30)
[2017-12-18] MEDS ORDERED: Bacitracin 150,000 UNIT in Sodium Chloride 0.9% Irrig 3,000 ML IR SCH (07:39)
[2017-12-18] MEDS ORDERED: Bupivacaine HCl 0.5% PF (10 ml) Inj ONE (07:47)
[2017-12-18] MEDS ORDERED: Lidocaine 2% Inj (20ml) ONE (07:47)
[2017-12-18] MEDS ORDERED: Lactated Ringer's 1,000 ML IV ONE (07:55)
[2017-12-18 08:11] LABS: ALB/GLOB RATIO 0.7 (1.0-2.1); ALBUMIN 2.6 g/dL (3.5-5.0); ALT/SGPT 71 U/L (21-72); BLOOD UREA NITROGEN 12 mg/dL (9-20); CALCIUM 8.6 mg/dl (8.6-10.4); GFR AFRICAN-AMERICAN > 60; GFR NON-AFRICAN AMERICAN > 60
[2017-12-18 08:26] LABS: AST/SGOT 144 U/L (17-59)
--- NOTE | 2017-12-18 08:39 | RAD ---
PROCEDURE: Bilateral Feet Radiographs. HISTORY: left foot ulcers COMPARISON: None. FINDINGS: BONES: Right Foot: No acute fracture. Left Foot: Poor visualization of the 4th metatarsal may be due to focal osteopenia versus overlying soft tissue gas. JOINTS: Right Foot: Unremarkable. Left Foot: Unremarkable. SOFT TISSUES: Right Foot: Normal. Left Foot: Diffuse soft tissue swelling and subcutaneous gas in the dorsal and ventral forefoot as well as in the medial forefoot soft tissues. OTHER FINDINGS: None. IMPRESSION: Extensive left forefoot subcutaneous gas and poor visualization of the 4th metatarsal head is likely related to osteomyelitis and soft tissue abscess.
--- NOTE | 2017-12-18 08:39 | RAD ---
HISTORY: baseline chest xray COMPARISON: Chest radiograph dated 05/10/2017 FINDINGS: LUNGS: No active pulmonary disease. PLEURA: No significant pleural effusion identified, no pneumothorax apparent. CARDIOVASCULAR: Normal. OSSEOUS STRUCTURES: Unchanged. VISUALIZED UPPER ABDOMEN: Normal. OTHER FINDINGS: None. IMPRESSION: No active disease.
--- NOTE | 2017-12-18 08:49 | RAD ---
PROCEDURE: Radiographs of the left tibia and fibula. HISTORY: to rule out gas emphysema tracking up leg COMPARISON: None available. TECHNIQUE: Frontal and lateral views obtained. FINDINGS: BONES: No fracture or destructive lesion. JOINT SPACES: Unremarkable. OTHER FINDINGS: Subcutaneous emphysema seen along the lateral lower extremity. IMPRESSION: Subcutaneous emphysema is seen tracking along the lateral lower extremity.
[2017-12-18 08:53] LABS: EOSINOPHIL 1 % (0-4); LYMPHOCYTE 9 % (20-40); MONOCYTE 5 % (0-10); NEUTROPHIL 85 % (50-75); PLATELET ESTIMATE NORMAL (NORMAL); TOTAL CELLS COUNTED 100
--- NOTE | 2017-12-18 08:53 | RAD ---
PROCEDURE: Left Foot Radiographs. HISTORY: s/p left foot bedside i and d COMPARISON: None. FINDINGS: Distal left lower extremity cast of fine bony detail. There is significant decrease in the amount of subcutaneous emphysema. Soft-tissue swelling is persistent. There is persistent poor visualization of the 4th metatarsal head and the medial aspect of the 5th metatarsal head likely reflecting sequelae of osteomyelitis. IMPRESSION: Status post incision and drainage with near complete resolution of subcutaneous emphysema. Poor visualization of the 4th and 5th metatarsal heads as described above, likely representing sequelae of osteomyelitis.
[2017-12-18 08:54] LABS: HYPOCHROMIC SLIGHT
--- NOTE | 2017-12-18 09:19 | PCM.SURG1 ---
Surgeon's Initial Post Op Note - Surgeon's Notes Surgeon: Dr. Hernandez Electrical Assistant: Dr. Palacios Type of Anesthesia: General LMA Anesthesia Administered By: Dr. Montoya Pre-Operative Diagnosis: Left foot soft tissue emphysema Operative Findings: Materials: 1/4 inch iodoform packing, 3-0 vicryl, 3-0 Nylon Post-Operative Diagnosis: same Operation Performed: Left foot and leg incision and drainage Specimen/Specimens Removed: None Estimated Blood Loss: EBL {In ML}: 30 Blood Products Given: N/A Drains Used: No Drains Post-Op Condition: Good Date of Surgery/Procedure: 12/18/17 Time of Surgery/Procedure: 08:00
--- NOTE | 2017-12-18 09:19 | CP.PCM.PN ---
Subjective - Date & Time of Evaluation Date of Evaluation: 12/18/17 Time of Evaluation: 06:40 - Subjective Subjective: 52 year old male patient with PMHx of uncontrolled DM, HTN was seen at bedside this morning for scheduled surgery of Left lower extremity incision and drainage with Dr. Hernandez. Patient is resting comfortably in bed with no acute distress. patient was admitted through ED last night after noticing redness, swelling and pus drainage from Left foot. He states that he had a piece of metal stuck into his Left plantar foot many months ago (more than 8) and have been treating his wound at home by himself. Patient denies of any N/V/F/C or SOB associated with the foot wound. patient denies of any other pedal complaints. Patient was advised of podiatry plan to perform surgical intervention of incision and drainage. Objective - Vital Signs/Intake and Output Vital Signs (last 24 hours): Temp Pulse Resp BP Pulse Ox 98.6 F 96 H 20 151/73 H 96 12/18/17 07:15 12/18/17 07:15 12/18/17 07:15 12/18/17 07:15 12/18/17 07:15 Intake and Output: 12/18/17 12/18/17 06:59 18:59 Intake Total 200 Balance 200 - Medications Medications: Current Medications Hydromorphone HCl (Dilaudid) 0.5 mg IVP Q4H PRN PRN Reason: Pain, severe (8-10) Last Admin: 12/18/17 01:10 Dose: 0.5 mg Meropenem 500 mg/ Sodium (Chloride) 100 mls @ 100 mls/hr IVPB Q6H [facility] PRN Reason: Protocol Last Admin: 12/18/17 07:15 Dose: 100 mls/hr Vancomycin/Sodium Chloride (Vancomycin 1 Gm/Ns 200 Ml) 1 gm in 200 mls @ 166.7 mls/hr IVPB Q12H [facility] PRN Reason: Protocol Stop: 12/23/17 10:01 Insulin Detemir (Levemir) 15 unit SC HS [facility] Insulin Human Regular (Novolin R) 0 unit SC Q6 [facility] PRN Reason: Protocol Last Admin: 12/18/17 06:00 Dose: Not Given Pantoprazole Sodium (Protonix Ec Tab) 40 mg PO DAILY [facility] - Labs Labs: 12/18/17 06:50 03/07/18 06:50 PT 15.0 SECONDS (9.7-12.2) H 12/17/17 22:10 INR 1.3 12/17/17 22:10 APTT 27 SECONDS (21-34) 12/17/17 22:10 - Constitutional Appears: Well, Non-toxic, No Acute Distress - Extremities Exam Additional comments: Left foot dressing intact - Neurological Exam Neurological Exam: Alert, Awake, Oriented x3 - Psychiatric Exam Psychiatric exam: Normal Affect, Normal Mood Assessment and Plan - Assessment and Plan (Free Text) Assessment: 52 yo male patient with chronic LEFT foot ulceration, soft tissue emphysema Plan: Patient was seen and evaluated Labs and vitals reviewed WBC 17.1, Afebrile Consent for surgery with podiatry this morning in chart No guarantees made regarding the outcome of surgery NPO status confirmed Medicine team made aware of podiatry surgery this morning Podiatry will continue to follow in house
[2017-12-18] MEDS ORDERED: HYDROmorphone 0.5 mg/0.5 ml ISec IVP PRN (09:30)
--- NOTE | 2017-12-18 10:12 | RAD ---
PROCEDURE: Left Foot Radiographs. HISTORY: Left foot soft tissue emphysema COMPARISON: Left foot radiographs performed approximately 7 hours prior. FINDINGS: Distal left lower extremity cast/has been removed. Subcutaneous emphysema is re- demonstrated in the dorsal and ventral forefoot. Focal osteopenia in the 4th and 5th metatarsal heads may reflect underlying osteomyelitis. IMPRESSION: Postsurgical changes with subcutaneous emphysema seen. Focal osteopenia in the 4th and 5th metatarsal heads may reflect underlying osteomyelitis.
--- NOTE | 2017-12-18 10:20 | CP.PCM.PN ---
<BasilLucreciamurphy Irizarry - Last Filed: 12/18/17 16:55> Subjective - Date & Time of Evaluation Date of Evaluation: 12/18/17 Time of Evaluation: 10:05 - Subjective Subjective: Medicine progress note (Dr. Taylor's service) Patient was seen and examined at bedside s/p Left foot and leg incision and drainage. Patient reports that he is doing well and pain is well control. Patient denies chest pain, SOB, palpitations, nausea, vomiting, fever, chills. Objective - Vital Signs/Intake and Output Vital Signs (last 24 hours): Temp Pulse Resp BP Pulse Ox 99.1 F 84 18 122/75 100 12/18/17 09:14 12/18/17 09:30 12/18/17 09:30 12/18/17 09:30 12/18/17 09:30 Intake and Output: 12/18/17 12/18/17 06:59 18:59 Intake Total 200 Balance 200 - Medications Medications: Current Medications Hydromorphone HCl (Dilaudid) 0.5 mg IVP Q4H PRN PRN Reason: Pain, severe (8-10) Last Admin: 12/18/17 01:10 Dose: 0.5 mg Hydromorphone HCl (Dilaudid) 0.5 mg IVP Q10M PRN PRN Reason: Pain, moderate (4-7) Stop: 12/18/17 11:31 Meropenem 500 mg/ Sodium (Chloride) 100 mls @ 100 mls/hr IVPB Q6H [facility] PRN Reason: Protocol Last Admin: 12/18/17 07:15 Dose: 100 mls/hr Vancomycin/Sodium Chloride (Vancomycin 1 Gm/Ns 200 Ml) 1 gm in 200 mls @ 166.7 mls/hr IVPB Q12H [facility] PRN Reason: Protocol Stop: 12/23/17 10:01 Lactated Ringer's (Lactated Ringer's) 1,000 mls @ 150 mls/hr IV .Q6H40M [facility] Insulin Detemir (Levemir) 15 unit SC HS [facility] Insulin Human Regular (Novolin R) 0 unit SC Q6 [facility] PRN Reason: Protocol Last Admin: 12/18/17 06:00 Dose: Not Given Ondansetron HCl (Zofran Inj) 4 mg IVP ONCE PRN PRN Reason: Nausea/Vomiting Stop: 12/18/17 11:32 Pantoprazole Sodium (Protonix Ec Tab) 40 mg PO DAILY [facility] - Labs Labs: 12/18/17 06:50 12/18/17 06:50 PT 15.0 SECONDS (9.7-12.2) H 12/17/17 22:10 INR 1.3 12/17/17 22:10 APTT 27 SECONDS (21-34) 12/17/17 22:10 - Constitutional Appears: Well, No Acute Distress - Head Exam Head Exam: ATRAUMATIC, NORMAL INSPECTION - Eye Exam Eye Exam: EOMI, Normal appearance - ENT Exam ENT Exam: Mucous Membranes Moist - Respiratory Exam Respiratory Exam: Clear to Ausculation Bilateral, NORMAL BREATHING PATTERN. absent: Rhonchi, Wheezes, Respiratory Distress - Cardiovascular Exam Cardiovascular Exam: REGULAR RHYTHM, +S1, +S2, Murmur - GI/Abdominal Exam GI & Abdominal Exam: Soft, Normal Bowel Sounds. absent: Distended, Guarding, Rigid, Tenderness - Extremities Exam Extremities Exam: Normal Inspection. absent: Calf Tenderness, Pedal Edema Additional comments: s/p Left foot and leg incision and drainage POD#1 Dressing is clean, dry and intact - Neurological Exam Neurological Exam: Alert, Awake, Oriented x3 - Psychiatric Exam Psychiatric exam: Normal Affect, Normal Mood - Skin Skin Exam: Normal Color Assessment and Plan (1) Diabetic foot ulcers Assessment & Plan: Podiatry, Dr. Hernandez on board----> Help appreciated * S/p bedside incision and drainage 12/18/17 * S/p left foot incision and drainage for left foot soft tissue emphysema POD #1 * wound care and pain management as per podiatry team (+) Leukocytosis 18.9; afebrile ( Leukocytosis trending down) * Infectious Disease consult, Dr Brooks * F/u wound Cx, blood Cx Imaging: X-ray left foot - gas emphysema noted dorsum and plantar aspect of midfoot Left foot X-rays s/p bedside i and d (12/18/17): Postsurgical changes with subcutaneous emphysema seen. Focal osteopenia in the 4th and 5th metatarsal heads may reflect underlying osteomyelitis. Left foot X-rays left tib-fib (12/18/17): Subcutaneous emphysema is seen tracking along the lateral lower extremity. Left foot X-ray (12/17/17): Extensive left forefoot subcutaneous gas and poor visualization of the 4th metatarsal head is likely related to osteomyelitis and soft tissue abscess. f/u MRI to assess for osteomyelitis Medication/Management: Dilaudid 0.5mg IVP Q4H PRN for pain control Meropenem 500mg IV Q6H (Started 12/18/17) Vancomycin 1g IV Q12H (Started 12/18/17) Florastor 250mg PO BID PT/OT treatment and evaluation Status: Acute (2) Uncontrolled diabetes mellitus Assessment & Plan: HbgA1C (12/18/17): 12.3 Accuchecks ISS- Medium dose Levemir 15 units HS Hypoglycemia protocol Status: Acute (3) HTN (hypertension) Assessment & Plan: BP well controlled Cont home med Lisinopril 10mg PO QD (renal protective as well) Status: Chronic (4) Prophylactic measure Assessment & Plan: GI: Protonix 40mg PO QD DVT: SCD and anticoagulation contraindicated due to s/p left foot incision and drainage for left foot soft tissue emphysema POD #1 , Heart healthy, diabetic diet All plans and management discussed with Dr. Taylor Status: Acute <Giuliano Taylor H - Last Filed: 12/19/17 07:00> Objective - Vital Signs/Intake and Output Vital Signs (last 24 hours): Temp Pulse Resp BP Pulse Ox 98.7 F 80 20 114/71 98 12/19/17 00:00 12/19/17 00:00 12/19/17 00:00 12/19/17 00:00 12/19/17 00:00 Intake and Output: 12/18/17 12/19/17 18:59 06:59 Intake Total 300 Balance 300 - Medications Medications: Current Medications Dextrose (Dextrose 50% Inj) 0 ml IVP .STAT PRN; Protocol PRN Reason: Hypoglycemia Protocol Dextrose (Glutose 15) 0 gm PO .ONCE PRN; Protocol PRN Reason: Hypoglycemia Protocol Glucagon (Glucagen Diagnostic Kit) 0 mg IM .STAT PRN; Protocol PRN Reason: Hypoglycemia Protocol Hydromorphone HCl (Dilaudid) 0.5 mg IVP Q4H PRN PRN Reason: Pain, severe (8-10) Last Admin: 12/18/17 21:23 Dose: 0.5 mg Meropenem 500 mg/ Sodium (Chloride) 100 mls @ 100 mls/hr IVPB Q6H [facility] PRN Reason: Protocol Last Admin: 12/19/17 06:14 Dose: 100 mls/hr Vancomycin/Sodium Chloride (Vancomycin 1 Gm/Ns 200 Ml) 1 gm in 200 mls @ 166.7 mls/hr IVPB Q12H [facility] PRN Reason: Protocol Stop: 12/23/17 10:01 Last Admin: 12/18/17 21:52 Dose: 166.7 mls/hr Lactated Ringer's (Lactated Ringer's) 1,000 mls @ 150 mls/hr IV .Q6H40M [facility] Last Admin: 12/19/17 06:22 Dose: 150 mls/hr Dextrose (Dextrose 5% In Water 1000 Ml) 1,000 mls @ 0 mls/hr IV .Q0M PRN; Protocol; Per Protocol PRN Reason: Hypoglycemia Protocol Insulin Detemir (Levemir) 15 unit SC HS [facility] Last Admin: 12/18/17 21:51 Dose: 15 unit Insulin Human Regular (Novolin R) 0 unit SC Q6 [facility] PRN Reason: Protocol Last Admin: 12/19/17 06:12 Dose: 3 unit Pantoprazole Sodium (Protonix Ec Tab) 40 mg PO DAILY [facility] Last Admin: 12/18/17 11:06 Dose: 40 mg Saccharomyces Boulardii (Florastor) 250 mg PO BID [facility] Last Admin: 12/18/17 17:58 Dose: 250 mg - Labs Labs: 12/18/17 06:50 12/18/17 06:50 PT 15.0 SECONDS (9.7-12.2) H 12/17/17 22:10 INR 1.3 12/17/17 22:10 APTT 27 SECONDS (21-34) 12/17/17 22:10 Attending/Attestation - Attestation I have personally seen and examined this patient.: Yes I have fully participated in the care of the patient.: Yes I have reviewed all pertinent clinical information, including history, physical exam and plan: Yes Notes (Text): 12/19/17 07:00 Medical attending: Patient was seen and examined by me, agree with the above note by medical insurance coding specialist. The patient had just returned from the OR when we saw him. He had intervention to his left foot.. The left foot is extensively covered with dressing as well as Sergio wraps. As documented above the resident note, the x-rays which showed that there was a lot of swelling as well as gas formation soft tissue that area. Was also concerning for findings of osteomyelitis the patient was ready placed on IV antibiotics by infectious disease including vancomycin as well as meropenem When we came and spoke with the patient, he explains to us that he's been having a lot of problems with this foot for at least 6-8 months now. He's had diabetes for a very long time as well. Because of the duration he is Oziel, were to follow-up with MRI of the lower extremity, since the x-rays were concerning for osteomyelitis Thank you very much, Giuliano Taylor
[2017-12-18] MEDS ORDERED: Glucagon Recombinant 1 mg Inj IM PRN (10:44)
[2017-12-18] MEDS ORDERED: Dextrose 50% SYRINGE Inj (50 ml) IVP PRN (10:44)
[2017-12-18] MEDS ORDERED: Potassium Chloride 20 mEq ER Tab PO ONE (10:45)
[2017-12-18] MEDS: Pantoprazole 40 mg EC Tab PO SCH (11:06)
[2017-12-18] MEDS: Saccharomyces Boulardi 250 mg Cap PO SCH ×2 (11:07→17:58)
[2017-12-18] MEDS: Vancomycin 1 gm/NS 200 ml 1 GM/200 ML BAG IVPB SCH ×2 (11:08→21:52)
[2017-12-18] MEDS: Lactated Ringer's 1,000 ML IV SCH ×2 (16:15→21:54)
--- NOTE | 2017-12-18 19:10 | PCM.OP ---
Operative Report - Operative Report Date of Surgery/Procedure: 12/18/17 Time of Surgery/Procedure: 08:00 Surgeon: Dr. Hernandez Utility Specialist: Dr. Chris Palacios Anesthesia/Sedation: Dr. Montoya Pre-Operative Diagnosis: Left foot abscess, soft tissue emphysema Post-Operative Diagnosis: same Indication for Surgery: Indications: The patient is a 52 year-old male with the above diagnoses. The patient has exhausted all conservative treatment at this time and now requires surgical intervention. The patient signed the consent after careful explanation of risks, benefits, complication and alternatives for surgical procedure. No guarantees were given nor implied. NPO status was confirmed prior to taking patient to the OR. Operative Findings: Preparation: The patient was brought in to the operating room and placed on the operating room table in a supine position. Timeout was performed for identification of the correct patient and procedure. After induction of general anesthesia, the left lower extremity was then prepped and draped in normal sterile manner and the procedure began. No tourniquet was used during the procedure. Procedure/Operation Description: Procedure: Left foot and leg incision and drainage with excisional debridement of non-viable tissue. Attention was then directed to the dorsal aspect of the Left foot between 2nd and 3rd metatarsals where approximately 6cm linear longitudinal incision was made with #15 blade. Upon palpation of the Left foot, 5 cc of purulent drainage was noted from the dorsal incision. Utilizing #15 blade and forceps, non-viable soft-tissue was gently excised. After all the non-viable soft tissue was adequately excised and debrided, healthy bleeding was noted from the area of debridement. Attention was then directed to the dorsal aspect of the Left foot between 4th and 5th MTPJ where approximately 2cm linear longitudinal incision was made with #15 blade. Upon palpation of the Left foot, 3 cc of purulent drainage was noted from the dorsal incision. Utilizing #15 blade and forceps, non-viable soft- tissue was gently excised. After all the non-viable soft tissue was adequately excised and debrided, healthy bleeding was noted from the area of debridement. Attention was then directed to the medial aspect of the Left just proximal to metatarsophalangeal joint where approximately 5cm linear longitudinal incision was made with #15 blade. Upon palpation of the Left foot, 5 cc of purulent drainage was noted from the medial incision. Utilizing #15 blade and forceps, non-viable soft-tissue was gently excised. After all the non-viable soft tissue was adequately excised and debrided, healthy bleeding was noted from the area of debridement. Attention was then directed to the plantar aspect of the Left mid foot where an open ulceration was noted measuring approximately 4cm x 4cm x 1cm. Approximately 6cm linear longitudinal incision was made with #15 blade including the ulceration in the middle. Upon palpation of the Left foot, 6 cc of purulent drainage was noted from the plantar incision. Utilizing #15 blade and forceps, non-viable soft-tissue was gently excised. After all the non- viable soft tissue was adequately excised and debrided, healthy bleeding was noted from the area of debridement. Attention was then directed to the lateral aspect of the Left leg just proximal to ankle joint where approximately 7cm linear longitudinal incision was made with #15 blade. Upon palpation of the Left foot and leg, 5 cc of purulent drainage was noted from the lateral leg incision. Utilizing #15 blade and forceps, non-viable soft-tissue was gently excised. After all the non-viable soft tissue was adequately excised and debrided, healthy bleeding was noted from the area of debridement. Utilizing Pulse Lavage, all five incision sites were copiously irrigated with mix of saline and bacitracin antibiotic. All wounds were packed with 1/4 inch iodine packing strips, and were partially sutured with #3-0 Prolene with openings in the middle. The Left foot was then dressed with 4x4 gauze, ABD pads, Kerlix and MILAGROS bandage. The attending was present during the entire case. Estimated Blood Loss: 40 mL Complications: None Discharge & Condition: Postoperative Condition: The patient tolerated the anesthesia and procedure well and was escorted to the recovery room with vital signs stable and neurovascular status intact to the Left foot. Patient will go back to the floor for continued IV abx treatment.
[2017-12-19] MEDS: Meropenem 500 MG in Sodium Chloride 0.9% 100 ML IVPB SCH ×4 (00:42→19:55)
[2017-12-19] MEDS: (Novolin R) Insulin Human Regular 100 units/ml vial SC SCH ×4 (00:53→18:05)
[2017-12-19] MEDS: Lactated Ringer's 1,000 ML IV SCH ×5 (06:02→18:50)
[2017-12-19] MEDS: HYDROmorphone 0.5 mg/0.5 ml ISec IVP PRN ×3 (06:57→17:55)
[2017-12-19 08:08] LABS: BASO % 0.3 % (0.0-2.0); EOS # 0.3 K/uL (0.0-0.7); EOS % 2.3 % (0.0-4.0); HEMOGLOBIN 8.7 g/dL (12.0-18.0); LYMPH # 1.3 K/uL (1.0-4.3); LYMPH % 10.3 % (20.0-40.0); MEAN CELL VOLUME 93.4 fL (80.0-94.0); MEAN CORPUSCULAR HEMOGLOBIN 32.5 pg (27.0-31.0); MEAN CORPUSCULAR HGB CONC 34.8 g/dL (33.0-37.0); MEAN PLATELET VOLUME 7.3 fL (7.2-11.7); MONO # 1.1 K/uL (0.0-0.8); MONO % 9.2 % (0.0-10.0); NEUT # 9.6 K/uL (1.8-7.0); NEUT % 77.9 % (50.0-75.0); RBC 2.69 Mil/uL (4.40-5.90); RED CELL DISTRIBUTION WIDTH 13.4 % (11.5-14.5); WHITE BLOOD COUNT 12.4 K/uL (4.8-10.8)
[2017-12-19 08:19] LABS: ALB/GLOB RATIO 0.7 (1.0-2.1); ALBUMIN 2.3 g/dL (3.5-5.0); ALT/SGPT 53 U/L (21-72); AST/SGOT 45 U/L (17-59); BLOOD UREA NITROGEN 6 mg/dL (9-20); GFR AFRICAN-AMERICAN > 60; GFR NON-AFRICAN AMERICAN > 60; HDL CHOLESTEROL 10 mg/dL (30-70)
[2017-12-19 08:28] LABS: LDL CHOLESTEROL 34 mg/dL (0-129)
--- NOTE | 2017-12-19 09:44 | CP.PCM.PN ---
Subjective - Date & Time of Evaluation Date of Evaluation: 12/19/17 Time of Evaluation: 09:39 - Subjective Subjective: Podiatry note for Dr. Hernandez 52 year old male patient 1 day s/p LEFT foot incision and drainage was seen at bedside this morning. Patient is resting comfortably in bed with no acute distress AAOx3. Patient admits to mild pain to left foot, but states it is tolerable with medications provided. Dressing to Left lower extremity appears clean dry and intact. Patient was advised of possible revisional surgery of Left foot incision and drainage after MRI result. Patient denies of any N/V/F/C or SOB today Objective - Vital Signs/Intake and Output Vital Signs (last 24 hours): Temp Pulse Resp BP Pulse Ox 98.8 F 91 H 20 120/72 96 12/19/17 07:33 12/19/17 07:33 12/19/17 07:33 12/19/17 07:33 12/19/17 07:33 Intake and Output: 12/19/17 12/19/17 06:59 18:59 Intake Total 300 1560 Output Total 1000 Balance 300 560 - Medications Medications: Current Medications Dextrose (Dextrose 50% Inj) 0 ml IVP .STAT PRN; Protocol PRN Reason: Hypoglycemia Protocol Dextrose (Glutose 15) 0 gm PO .ONCE PRN; Protocol PRN Reason: Hypoglycemia Protocol Glucagon (Glucagen Diagnostic Kit) 0 mg IM .STAT PRN; Protocol PRN Reason: Hypoglycemia Protocol Hydromorphone HCl (Dilaudid) 0.5 mg IVP Q4H PRN PRN Reason: Pain, severe (8-10) Last Admin: 12/19/17 06:57 Dose: 0.5 mg Meropenem 500 mg/ Sodium (Chloride) 100 mls @ 100 mls/hr IVPB Q6H [facility] PRN Reason: Protocol Last Admin: 12/19/17 06:14 Dose: 100 mls/hr Vancomycin/Sodium Chloride (Vancomycin 1 Gm/Ns 200 Ml) 1 gm in 200 mls @ 166.7 mls/hr IVPB Q12H [facility] PRN Reason: Protocol Stop: 12/23/17 10:01 Last Admin: 12/18/17 21:52 Dose: 166.7 mls/hr Lactated Ringer's (Lactated Ringer's) 1,000 mls @ 150 mls/hr IV .Q6H40M [facility] Last Admin: 12/19/17 06:22 Dose: 150 mls/hr Dextrose (Dextrose 5% In Water 1000 Ml) 1,000 mls @ 0 mls/hr IV .Q0M PRN; Protocol; Per Protocol PRN Reason: Hypoglycemia Protocol Insulin Detemir (Levemir) 15 unit SC HS [facility] Last Admin: 12/18/17 21:51 Dose: 15 unit Insulin Human Regular (Novolin R) 0 unit SC Q6 [facility] PRN Reason: Protocol Last Admin: 12/19/17 06:12 Dose: 3 unit Pantoprazole Sodium (Protonix Ec Tab) 40 mg PO DAILY [facility] Last Admin: 12/18/17 11:06 Dose: 40 mg Saccharomyces Boulardii (Florastor) 250 mg PO BID [facility] Last Admin: 12/18/17 17:58 Dose: 250 mg - Labs Labs: 12/19/17 07:55 12/19/17 07:55 PT 15.0 SECONDS (9.7-12.2) H 12/17/17 22:10 INR 1.3 12/17/17 22:10 APTT 27 SECONDS (21-34) 12/17/17 22:10 - Constitutional Appears: Well, Non-toxic, No Acute Distress - Head Exam Head Exam: ATRAUMATIC - Extremities Exam Additional comments: Left lower extremity exam DERM: DORSAL: 6cm Incision to Dorsal aspect remains well coapted, sutured with an opening in the middle. 1/4 inch iodoform packing was removed today. 3mL of purulent drainage was noted from this incision site. Medial: 6cm Incision remains well coapted, sutured with an opening in the middle. 1/4 inch iodoform packing was removed today. No purulent drainage was noted from this incision site. Plantar: 6cm Incision remains well coapted, sutured with an opening in the middle. 1/4 inch iodoform packing was removed today. No purulent drainage was noted from this incision site. Lateral lecm Incision at the level of ankle joint laterally remains well coapted, sutured with an opening in the middle. 1/4 inch iodoform packing was removed today. No purulent drainage was noted from this incision site. VASC: Non-palpable DP/PT noted secondary to edema. 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 Left foot cleansed with saline, dressed with Betadine, DSD, MILAGROS MRI ordered for LEFT foot Continue Pain medicaions Continue IV Abx Patient to be non-weight bearing to Left lower extremity Podiatry will continue to follow in house
[2017-12-19] MEDS ORDERED: Potassium Chloride 20 mEq ER Tab PO ONE (09:45)
[2017-12-19] MEDS: Pantoprazole 40 mg EC Tab PO SCH (10:45)
[2017-12-19] MEDS: Saccharomyces Boulardi 250 mg Cap PO SCH ×2 (10:45→17:50)
[2017-12-19] MEDS: Vancomycin 1 gm/NS 200 ml 1 GM/200 ML BAG IVPB SCH ×2 (10:46→22:04)
--- NOTE | 2017-12-19 13:37 | CP.PCM.PN ---
Addendum entered and electronically signed by Leroy Gracia 12/19/17 13:48: Physical Examination: Gen: NAD but agitated HEENT: Normacephalice, atraumatic Cardio: RRR, normal S1, S2 Pulm: CTA bilaterally, no rales, wheezing or rhonci Abd: Soft, + bowel sounds in all 4 quadrants, non-distended and non-tender Ext: S/P s/p Left foot and leg incision and drainage POD #2, dressing clean, intact and dry. + Sensation Original Note: <Leroy Gracia - Last Filed: 12/19/17 13:46> Subjective - Date & Time of Evaluation Date of Evaluation: 12/19/17 Time of Evaluation: 07:35 - Subjective Subjective: Medicine progress note (Dr. Taylor's service) Patient was seen and examined at bedside s/p Left foot and leg incision and drainage POD #2 . Patient reports that he is doing well and pain is well control. Patient denies chest pain, SOB, palpitations, nausea, vomiting, fever, chills, abdominal pain but reports cough and mild pain in his left foot. Objective - Vital Signs/Intake and Output Vital Signs (last 24 hours): Temp Pulse Resp BP Pulse Ox 98.8 F 91 H 20 120/72 96 12/19/17 07:33 12/19/17 07:33 12/19/17 07:33 12/19/17 07:33 12/19/17 07:33 Intake and Output: 12/19/17 12/19/17 06:59 18:59 Intake Total 300 1560 Output Total 1000 Balance 300 560 - Medications Medications: Current Medications Benzonatate (Tessalon Perles) 100 mg PO TID [facility] Dextrose (Dextrose 50% Inj) 0 ml IVP .STAT PRN; Protocol PRN Reason: Hypoglycemia Protocol Dextrose (Glutose 15) 0 gm PO .ONCE PRN; Protocol PRN Reason: Hypoglycemia Protocol Glucagon (Glucagen Diagnostic Kit) 0 mg IM .STAT PRN; Protocol PRN Reason: Hypoglycemia Protocol Hydromorphone HCl (Dilaudid) 0.5 mg IVP Q4H PRN PRN Reason: Pain, severe (8-10) Last Admin: 12/19/17 12:49 Dose: 0.5 mg Meropenem 500 mg/ Sodium (Chloride) 100 mls @ 100 mls/hr IVPB Q6H [facility] PRN Reason: Protocol Last Admin: 12/19/17 12:52 Dose: 100 mls/hr Vancomycin/Sodium Chloride (Vancomycin 1 Gm/Ns 200 Ml) 1 gm in 200 mls @ 166.7 mls/hr IVPB Q12H [facility] PRN Reason: Protocol Stop: 12/23/17 10:01 Last Admin: 12/19/17 10:46 Dose: 166.7 mls/hr Lactated Ringer's (Lactated Ringer's) 1,000 mls @ 150 mls/hr IV .Q6H40M [facility] Last Admin: 12/19/17 12:18 Dose: Not Given Dextrose (Dextrose 5% In Water 1000 Ml) 1,000 mls @ 0 mls/hr IV .Q0M PRN; Protocol; Per Protocol PRN Reason: Hypoglycemia Protocol Insulin Detemir (Levemir) 20 unit SC HS [facility] Insulin Human Regular (Novolin R) 0 unit SC Q6 [facility] PRN Reason: Protocol Last Admin: 12/19/17 12:02 Dose: 4 unit Pantoprazole Sodium (Protonix Ec Tab) 40 mg PO DAILY [facility] Last Admin: 12/19/17 10:45 Dose: 40 mg Saccharomyces Boulardii (Florastor) 250 mg PO BID [facility] Last Admin: 12/19/17 10:45 Dose: 250 mg - Labs Labs: 12/19/17 07:55 12/19/17 07:55 PT 15.0 SECONDS (9.7-12.2) H 12/17/17 22:10 INR 1.3 12/17/17 22:10 APTT 27 SECONDS (21-34) 12/17/17 22:10 Assessment and Plan (1) Diabetic foot ulcers Assessment & Plan: Podiatry, Dr. Hernandez on board----> Help appreciated * S/p bedside incision and drainage 3 * S/p left foot incision and drainage for left foot soft tissue emphysema POD #2 * wound care and pain management as per podiatry team (+) Leukocytosis ( WBC) 18.9; afebrile (WBC trending down) * Infectious Disease consult, Dr Brooks * Blood culture and wound culture: No growth and negative rods ( Group G strep) , respectively Imaging: X-ray left foot - gas emphysema noted dorsum and plantar aspect of midfoot Left foot X-rays s/p bedside i and d (12/18/17): Postsurgical changes with subcutaneous emphysema seen. Focal osteopenia in the 4th and 5th metatarsal heads may reflect underlying osteomyelitis. Left foot X-rays left tib-fib (12/18/17): Subcutaneous emphysema is seen tracking along the lateral lower extremity. Left foot X-ray (12/17/17): Extensive left forefoot subcutaneous gas and poor visualization of the 4th metatarsal head is likely related to osteomyelitis and soft tissue abscess. f/u MRI to assess for osteomyelitis -Pending Medication/Management: Dilaudid 0.5mg IVP Q4H PRN for pain control Meropenem 500mg IV Q6H (Started 12/18/17) Vancomycin 1g IV Q12H (Started 12/18/17) Florastor 250mg PO BID PT/OT treatment and evaluation Status: Acute (2) Uncontrolled diabetes mellitus Assessment & Plan: HbgA1C (12/18/17): 12.3 Accuchecks ISS- High dose Levemir 20 units HS Hypoglycemia protocol Status: Acute (3) HTN (hypertension) Assessment & Plan: BP well controlled Continue home med Lisinopril 10mg PO QD (renal protective as well) Status: Chronic (4) Prophylactic measure Assessment & Plan: GI: Protonix 40mg PO QD DVT: SCD and anticoagulation contraindicated due to s/p left foot incision and drainage for left foot soft tissue emphysema POD #2, to restart as per podiatry' s recommendation Heart healthy, diabetic diet All plans and management discussed with Dr. Taylor Status: Acute <Giuliano Taylor H - Last Filed: 12/19/17 17:07> Objective - Vital Signs/Intake and Output Vital Signs (last 24 hours): Temp Pulse Resp BP Pulse Ox 98.3 F 96 H 20 143/77 95 12/19/17 16:06 12/19/17 16:06 12/19/17 16:06 12/19/17 16:06 12/19/17 16:06 Intake and Output: 12/19/17 12/19/17 06:59 18:59 Intake Total 300 2910 Output Total 1000 Balance 300 1910 - Medications Medications: Current Medications Benzonatate (Tessalon Perles) 100 mg PO TID [facility] Last Admin: 12/19/17 14:03 Dose: 100 mg Dextrose (Dextrose 50% Inj) 0 ml IVP .STAT PRN; Protocol PRN Reason: Hypoglycemia Protocol Dextrose (Glutose 15) 0 gm PO .ONCE PRN; Protocol PRN Reason: Hypoglycemia Protocol Glucagon (Glucagen Diagnostic Kit) 0 mg IM .STAT PRN; Protocol PRN Reason: Hypoglycemia Protocol Hydromorphone HCl (Dilaudid) 0.5 mg IVP Q4H PRN PRN Reason: Pain, severe (8-10) Last Admin: 12/19/17 12:49 Dose: 0.5 mg Meropenem 500 mg/ Sodium (Chloride) 100 mls @ 100 mls/hr IVPB Q6H [facility] PRN Reason: Protocol Last Admin: 12/19/17 12:52 Dose: 100 mls/hr Vancomycin/Sodium Chloride (Vancomycin 1 Gm/Ns 200 Ml) 1 gm in 200 mls @ 166.7 mls/hr IVPB Q12H [facility] PRN Reason: Protocol Stop: 12/23/17 10:01 Last Admin: 12/19/17 10:46 Dose: 166.7 mls/hr Lactated Ringer's (Lactated Ringer's) 1,000 mls @ 150 mls/hr IV .Q6H40M [facility] Last Admin: 12/19/17 12:18 Dose: Not Given Dextrose (Dextrose 5% In Water 1000 Ml) 1,000 mls @ 0 mls/hr IV .Q0M PRN; Protocol; Per Protocol PRN Reason: Hypoglycemia Protocol Insulin Detemir (Levemir) 20 unit SC HS [facility] Insulin Human Regular (Novolin R) 0 unit SC Q6 [facility] PRN Reason: Protocol Last Admin: 12/19/17 12:02 Dose: 4 unit Pantoprazole Sodium (Protonix Ec Tab) 40 mg PO DAILY [facility] Last Admin: 12/19/17 10:45 Dose: 40 mg Saccharomyces Boulardii (Florastor) 250 mg PO BID [facility] Last Admin: 12/19/17 10:45 Dose: 250 mg - Labs Labs: 12/19/17 07:55 12/19/17 07:55 PT 15.0 SECONDS (9.7-12.2) H 12/17/17 22:10 INR 1.3 12/17/17 22:10 APTT 27 SECONDS (21-34) 12/17/17 22:10 Attending/Attestation - Attestation I have personally seen and examined this patient.: Yes I have fully participated in the care of the patient.: Yes I have reviewed all pertinent clinical information, including history, physical exam and plan: Yes Notes (Text): 12/19/17 17:01 Medical attending: Patient was seen and examined by me. Agree with the above note by the resident The patient was with family members at bedside. Patient was ok with family at bedside From my discussion with the medical residents, the patient was agitated in the morning and was refusing to go to MRI on two occasions. I explained to the patient the importance of this since there is a very real chance he could have extensive osteomylitis. His WBC has decreased. So far the cultures are preliminary positive for gram negative rods. He remains on the IV Meropenom as well as the IV Vancomycin. Giuliano Taylor
--- NOTE | 2017-12-19 15:18 | CARD ---
APPROVED REPORT EKG Measurement Heart [id number] [place] [id number] <Conclusion> Sinus tachycardia Possible Left atrial enlargement Left ventricular hypertrophy Abnormal ECG
--- NOTE | 2017-12-19 18:47 | CP.PCM.CON ---
History of Present Illness - History of Present Illness History of Present Illness: 52 y.o male with PMH of HTN and DM presents to the ED for infected left foot ulceration. P Patient reports that he has had this ulceration for a very long time, reports over 6 months+ but did not seek medical attention The ulceration started after he stepped on a metal. He reports that he has been cleaning his ulceration with betadine and dsd alone at home daily. Patient reports that there was increase swelling and redness to his left foot for the last 3-4 days. He also noted drainage from the ulceration and describe the drainage yellow. referred for ID eval for Cellulitis / OM left foot PMH: HTN and DM PSH: gallbladder removal SH: denies smoking or illicit drug use, reports drinking 2-3 beers daily over 15 years ALL: NKDA MEDS: metformin and insulin, states that he ran out of the insulin 4 days ago FH: father- stomach cancer, mother- DM Review of Systems - Review of Systems All systems: reviewed and no additional remarkable complaints except - Constitutional Constitutional: As Per HPI - EENT Eyes: absent: As Per HPI, Blind Spots, Blurred Vision, Change in Vision, Decreased Night Vision, Diplopia, Discharge, Dry Eye, Exophthalmos, Floaters, Irritation, Itchy Eyes, Loss of Peripheral Vision, Pain, Photophobia, Requires Corrective Lenses, Sees Flashes, Spots in Vision, Tunnel Vision, Other Visual Disturbances, Loss of Vision, Other Ears: absent: As Per HPI, Decreased Hearing, Ear Discharge, Ear Pain, Tinnitus, Abnormal Hearing, Disequilibrium, Dizziness, Other Nose/Mouth/Throat: absent: As Per HPI, Epistaxis, Nasal Congestion, Nasal Discharge, Nasal Obstruction, Nasal Trauma, Nose Pain, Post Nasal Drip, Sinus Pain, Sinus Pressure, Bleeding Gums, Change in Voice, Dental Pain, Dry Mouth, Dysphagia, Halitosis, Hoarsness, Lip Swelling, Mouth Lesions, Mouth Pain, Odynophagia, Sore Throat, Throat Swelling, Tongue Swelling, Facial Pain, Neck Pain, Neck Mass, Other - Cardiovascular Cardiovascular: absent: As Per HPI, Acrocyanosis, Chest Pain, Chest Pain at Rest , Chest Pain with Activity, Claudication, Diaphoresis, Dyspnea, Dyspnea on Exertion, Edema, Irregular Heart Rhythm, Pain Radiating to Arm/Neck/Jaw, Leg Edema, Leg Ulcers, Lightheadedness, Orthopnea, Palpitations, Paroxysmal Nocturnal Dyspnea, Pedal Edema, Radiating Pain, Rapid Heart Rate, Slow Heart Rate, Syncope, Other - Respiratory Respiratory: absent: As Per HPI, Cough, Dyspnea, Hemoptysis, Dyspnea on Exertion , Wheezing, Snoring, Stridor, Pain on Inspiration, Chest Congestion, Excessive Mucous Production, Change in Mucous Color, Pain with Coughing, Other - Gastrointestinal Gastrointestinal: absent: As Per HPI, Abdominal Pain, Belching, Bloating, Change in Bowel Habits, Change in Stool Character, Coffee Ground Emesis, Constipation, Cramping, Diarrhea, Dyspepsia, Dysphagia, Early Satiety, Excessive Flatus, Fecal Incontinence, Heartburn, Hematemesis, Hematochezia, Loose Stools, Melena, Nausea, Odynophagia, Temesmus, Vomiting, Other - Genitourinary Genitourinary: absent: As Per HPI, Change in Urinary Stream, Difficulty Urinating, Dysuria, Flank Pain, Hematuria, Pyuria, Nocturia, Urinary Incontinence, Urinary Frequency, Urinary Hesitance, Urinary Urgency, Voiding Freq/Small Amts, Freq UTI, Hx Renal/Bladder Calculi, Hx /Renal Surgery, Bladder Distension, Other - Musculoskeletal Musculoskeletal: As Per HPI - Integumentary Integumentary: As Per HPI, Skin Pain, Wounds - Neurological Neurological: As Per HPI - Psychiatric Psychiatric: absent: As Per HPI, Abnormal Sleep Pattern, Anhedonia, Anxiety, Auditory Hallucinations, Behavioral Changes, Change in Appetite, Change in Libido, Confusion, Depression, Difficulty Concentrating, Hallucinations, Homicidal Ideation, Hopelessness, Irritability, Memory Loss, Mood Swings, Panic Attacks, Paranoia, Suicidal Ideation, Visual Hallucinations, Tactile Hallucinations, Other - Endocrine Endocrine: absent: As Per HPI, Change in Body Appearance, Change in Libido, Cold Intolorance, Deepening of Voice, Excessive Sweating, Fatigue, Flushing, Heat Intolorance, Increase in Ring/Shoe/Hat Size, Palpitations, Polydipsia, Polyphagia, Polyuria, Other - Hematologic/Lymphatic Hematologic: absent: As Per HPI, Easy Bleeding, Easy Bruising, Lymphadenopathy, Other Past Patient History - Infectious Disease Hx of Infectious Diseases: None - Past Medical History & Family History Past Medical History?: Yes - Past Social History Smoking Status: Never Smoked - CARDIAC Hx Hypertension: Yes - PULMONARY Hx Respiratory Disorders: No - NEUROLOGICAL Hx Neurological Disorder: No - HEENT Hx HEENT Problems: No - RENAL Hx Chronic Kidney Disease: No - ENDOCRINE/METABOLIC Hx Diabetes Mellitus Type 2: Yes - HEMATOLOGICAL/ONCOLOGICAL Hx Blood Disorders: No Hx Blood Transfusions: No Hx Blood Transfusion Reaction: No - INTEGUMENTARY Hx Dermatological Problems: Yes Hx Cellulitis: Yes (OSTEOMYELITIS LEFT FOOT) - MUSCULOSKELETAL/RHEUMATOLOGICAL Hx Musculoskeletal Disorders: No Hx Falls: No - GASTROINTESTINAL Hx Gastrointestinal Disorders: No - GENITOURINARY/GYNECOLOGICAL Hx Genitourinary Disorders: No - PSYCHIATRIC Hx Substance Use: No - SURGICAL HISTORY Hx Appendectomy: Yes Hx Cholecystectomy: Yes - ANESTHESIA Hx Anesthesia: Yes Hx Anesthesia Reactions: No Hx Malignant Hyperthermia: No Meds Allergies/Adverse Reactions: Allergies Allergy/AdvReac Type Severity Reaction Status Date / Time No Known Allergies Allergy Verified 12/17/17 20:17 - Medications Medications: Current Medications Benzonatate (Tessalon Perles) 100 mg PO TID [facility] Last Admin: 12/19/17 17:50 Dose: 100 mg Dextrose (Dextrose 50% Inj) 0 ml IVP .STAT PRN; Protocol PRN Reason: Hypoglycemia Protocol Dextrose (Glutose 15) 0 gm PO .ONCE PRN; Protocol PRN Reason: Hypoglycemia Protocol Glucagon (Glucagen Diagnostic Kit) 0 mg IM .STAT PRN; Protocol PRN Reason: Hypoglycemia Protocol Hydromorphone HCl (Dilaudid) 0.5 mg IVP Q4H PRN PRN Reason: Pain, severe (8-10) Last Admin: 12/19/17 17:55 Dose: 0.5 mg Meropenem 500 mg/ Sodium (Chloride) 100 mls @ 100 mls/hr IVPB Q6H [facility] PRN Reason: Protocol Last Admin: 12/19/17 12:52 Dose: 100 mls/hr Vancomycin/Sodium Chloride (Vancomycin 1 Gm/Ns 200 Ml) 1 gm in 200 mls @ 166.7 mls/hr IVPB Q12H [facility] PRN Reason: Protocol Stop: 12/23/17 10:01 Last Admin: 12/19/17 10:46 Dose: 166.7 mls/hr Lactated Ringer's (Lactated Ringer's) 1,000 mls @ 150 mls/hr IV .Q6H40M [facility] Last Admin: 12/19/17 17:51 Dose: 150 mls/hr Dextrose (Dextrose 5% In Water 1000 Ml) 1,000 mls @ 0 mls/hr IV .Q0M PRN; Protocol; Per Protocol PRN Reason: Hypoglycemia Protocol Insulin Detemir (Levemir) 20 unit SC HS [facility] Insulin Human Regular (Novolin R) 0 unit SC Q6 [facility] PRN Reason: Protocol Last Admin: 12/19/17 18:05 Dose: 6 unit Pantoprazole Sodium (Protonix Ec Tab) 40 mg PO DAILY [facility] Last Admin: 12/19/17 10:45 Dose: 40 mg Saccharomyces Boulardii (Florastor) 250 mg PO BID [facility] Last Admin: 12/19/17 17:50 Dose: 250 mg Physical Exam - Constitutional Appears: Non-toxic, Chronically Ill - Head Exam Head Exam: NORMOCEPHALIC - Eye Exam Eye Exam: PERRL. absent: Scleral icterus - ENT Exam ENT Exam: Mucous Membranes Dry, Normal External Ear Exam - Neck Exam Neck exam: Negative for: Thyromegaly - Respiratory Exam Respiratory Exam: Decreased Breath Sounds, Clear to Auscultation Bilateral - Cardiovascular Exam Cardiovascular Exam: REGULAR RHYTHM, +S1, +S2 - GI/Abdominal Exam GI & Abdominal Exam: Diminished Bowel Sounds, Soft. absent: Tenderness - Rectal Exam Rectal Exam: Deferred - Exam Exam: NORMAL INSPECTION - Extremities Exam Extremities exam: Positive for: pedal edema Additional comments: Left lower extremity exam DERM: DORSAL: 6cm Incision to Dorsal aspect remains well coapted, sutured with an opening in the middle. 1/4 inch iodoform packing was removed today. 3mL of purulent drainage was noted from this incision site. Medial: 6cm Incision remains well coapted, sutured with an opening in the middle. 1/4 inch iodoform packing was removed today. No purulent drainage was noted from this incision site. Plantar: 6cm Incision remains well coapted, sutured with an opening in the middle. 1/4 inch iodoform packing was removed today. No purulent drainage was noted from this incision site. Lateral lecm Incision at the level of ankle joint laterally remains well coapted, sutured with an opening in the middle. 1/4 inch iodoform packing was removed today. No purulent drainage was noted from this incision site. VASC: Non-palpable DP/PT noted secondary to edema. BATCH [employer]ER less than 3 seconds noted to all digits NEURO: Gross sensation intact ORTHO: Pain on palpation to Left foot, Passive ROM to joints cannot be tested due to guarding - Back Exam Back exam: absent: CVA tenderness (L), CVA tenderness (R), paraspinal tenderness - Neurological Exam Neurological exam: Alert, CN II-XII Intact, Oriented x3, Reflexes Normal - Psychiatric Exam Psychiatric exam: Depressed - Skin Skin Exam: Dry Results - Vital Signs Recent Vital Signs: Last Vital Signs Temp 98.3 F 12/19/17 16:06 Pulse 96 H 12/19/17 16:06 Resp 20 12/19/17 16:06 BP 143/77 12/19/17 16:06 Pulse Ox 95 12/19/17 16:06 - Labs Result Diagrams: 12/19/17 07:55 12/19/17 07:55 Labs: Laboratory Results - last 24 hr 12/18/17 12/19/17 12/19/17 17:46 00:03 05:55 WBC RBC Hgb Hct MCV MCH MCHC RDW Plt Count MPV Neut % (Auto) Lymph % (Auto) Louisa % (Auto) Eos % (Auto) Baso % (Auto) Neut # (Auto) Lymph # (Auto) Louisa # (Auto) Eos # (Auto) Baso # (Auto) Sodium Potassium Chloride Carbon Dioxide Anion Gap BUN Creatinine Est GFR ( Amer) Est GFR (Non-Af Amer) POC Glucose (mg/dL) 275 H 339 H 246 H Random Glucose Calcium Phosphorus Magnesium Total Bilirubin AST ALT Alkaline Phosphatase Total Protein Albumin Globulin Albumin/Globulin Ratio Triglycerides Cholesterol LDL Cholesterol Direct HDL Cholesterol 12/19/17 12/19/17 12/19/17 07:55 07:55 11:20 WBC 12.4 H RBC 2.69 L Hgb 8.7 L Hct 25.1 L MCV 93.4 MCH 32.5 H MCHC 34.8 RDW 13.4 Plt Count 449 H MPV 7.3 Neut % (Auto) 77.9 H Lymph % (Auto) 10.3 L Louisa % (Auto) 9.2 Eos % (Auto) 2.3 Baso % (Auto) 0.3 Neut # (Auto) 9.6 H Lymph # (Auto) 1.3 Louisa # (Auto) 1.1 H Eos # (Auto) 0.3 Baso # (Auto) 0.0 Sodium 132 Potassium 3.5 L Chloride 97 L Carbon Dioxide 26 Anion Gap 12 BUN 6 L Creatinine 0.4 L Est GFR ( Amer) > 60 Est GFR (Non-Af Amer) > 60 POC Glucose (mg/dL) 210 H Random Glucose 186 H Calcium 8.0 L Phosphorus 2.4 L Magnesium 1.6 Total Bilirubin 0.6 AST 45 ALT 53 Alkaline Phosphatase 306 H Total Protein 5.5 L Albumin 2.3 L Globulin 3.2 Albumin/Globulin Ratio 0.7 L Triglycerides 90 D Cholesterol 76 LDL Cholesterol Direct 34 HDL Cholesterol 10 L 12/19/17 17:39 WBC RBC Hgb Hct MCV MCH MCHC RDW Plt Count MPV Neut % (Auto) Lymph % (Auto) Louisa % (Auto) Eos % (Auto) Baso % (Auto) Neut # (Auto) Lymph # (Auto) Louisa # (Auto) Eos # (Auto) Baso # (Auto) Sodium Potassium Chloride Carbon Dioxide Anion Gap BUN Creatinine Est GFR ( Amer) Est GFR (Non-Af Amer) POC Glucose (mg/dL) 298 H Random Glucose Calcium Phosphorus Magnesium Total Bilirubin AST ALT Alkaline Phosphatase Total Protein Albumin Globulin Albumin/Globulin Ratio Triglycerides Cholesterol LDL Cholesterol Direct HDL Cholesterol Assessment & Plan (1) Diabetic foot ulcers Status: Acute (2) Alcohol abuse Status: Acute - Assessment and Plan (Free Text) Assessment: r/o OM await OR cultures poor prognosis for limb salvage consider Vascular eval
[2017-12-20] MEDS: HYDROmorphone 0.5 mg/0.5 ml ISec IVP PRN ×4 (00:37→21:39)
[2017-12-20] MEDS: Insulin Detemir 100 units/ml Vial (Levemir) SC SCH ×2 (00:38→22:02)
[2017-12-20] MEDS: (Novolin R) Insulin Human Regular 100 units/ml vial SC SCH ×4 (00:45→17:26)
[2017-12-20] MEDS: Meropenem 500 MG in Sodium Chloride 0.9% 100 ML IVPB SCH ×3 (00:48→14:02)
[2017-12-20] MEDS: Lactated Ringer's 1,000 ML IV SCH ×3 (01:57→22:02)
[2017-12-20 08:26] LABS: BASO % 0.4 % (0.0-2.0); EOS # 0.3 K/uL (0.0-0.7); HEMOGLOBIN 8.8 g/dL (12.0-18.0); LYMPH # 1.4 K/uL (1.0-4.3); LYMPH % 14.7 % (20.0-40.0); MEAN CELL VOLUME 93.9 fL (80.0-94.0); MEAN CORPUSCULAR HEMOGLOBIN 32.7 pg (27.0-31.0); MEAN CORPUSCULAR HGB CONC 34.8 g/dL (33.0-37.0); MEAN PLATELET VOLUME 7.5 fL (7.2-11.7); MONO # 0.8 K/uL (0.0-0.8); MONO % 8.6 % (0.0-10.0); NEUT # 6.9 K/uL (1.8-7.0); NEUT % 73.3 % (50.0-75.0); RBC 2.7 Mil/uL (4.40-5.90); RED CELL DISTRIBUTION WIDTH 13.7 % (11.5-14.5); WHITE BLOOD COUNT 9.4 K/uL (4.8-10.8)
[2017-12-20 08:44] LABS: ALB/GLOB RATIO 0.7 (1.0-2.1); ALBUMIN 2.5 g/dL (3.5-5.0); ALT/SGPT 53 U/L (21-72); AST/SGOT 29 U/L (17-59); BLOOD UREA NITROGEN 8 mg/dL (9-20); CALCIUM 8.5 mg/dl (8.6-10.4); GFR AFRICAN-AMERICAN > 60; GFR NON-AFRICAN AMERICAN > 60
[2017-12-20] MEDS ORDERED: Influenza Vaccine 60 mcg/0.5 mL SYR (4YR UP) IM ONE (10:00)
[2017-12-20] MEDS ORDERED: Pneumococcal 23-Valent Vaccine IM ONE (10:00)
[2017-12-20] MEDS: Pantoprazole 40 mg EC Tab PO SCH (10:13)
[2017-12-20] MEDS: Saccharomyces Boulardi 250 mg Cap PO SCH ×2 (10:13→17:25)
[2017-12-20] MEDS: Vancomycin 1 gm/NS 200 ml 1 GM/200 ML BAG IVPB SCH (10:14)
[2017-12-20 10:45] LABS: HEPATITIS B SURFACE AG Negative (NEGATIVE)
[2017-12-20 10:51] LABS: HEPATITIS A IGM NEGATIVE (NEGATIVE); HEPATITIS B CORE AB NEGATIVE (NEGATIVE)
[2017-12-20 11:03] LABS: HEPATITIS C ANTIBODY NEGATIVE (NEGATIVE)
--- NOTE | 2017-12-20 11:42 | MRI ---
PROCEDURE: MRI of the left foot without contrast HISTORY: Assess for osteomyelitis COMPARISON: Comparison is made with the previous study dated 05/06/2017. Correlation is also made to the previous x-ray of the left foot dated 12/18/2017 TECHNIQUE: Axial coronal and sagittal MRI images of the left foot were obtained without IV contrast administration. FINDINGS: There are foci of cortical erosion noted at the distal portion and the head of the 4th metatarsal bone associated with diffuse bone marrow edema. There are also cortical erosion and bone marrow edema noted at the proximal phalanx of the 4th toe. Findings consistent with osteomyelitis. The possibility of septic arthritis at the 4th metatarsal pharyngeal joint also should be considered given the abnormal signal and the erosion of the bones at both side of the joint. There are patchy mild hyperintense T2 signal also noted at the proximal phalanx of the 3rd and 5th toes may represent reactive bone marrow edema. No definite evidence of cortical erosion noted at these toes. Mild bone marrow edema also noted at the 3rd metatarsal bone. There is a questionable mild small erosion at the head of the 1st metatarsal bone associated with bone marrow edema. The possibility of air early osteomyelitis should be considered. There are foci of hypointense signal in T1 and T2 noted in the soft tissue at the distal portion of the left foot more prominent dorsally likely represent soft tissue emphysema due to active infectious process. There is a diffuse soft tissue edema noted in the mid and distal portion of the left foot. There is also diffuse increased signal in the muscles of the left foot suggestive of myositis. IMPRESSION: Findings consistent with osteomyelitis involving the distal portion and the head of the 4th metatarsal and also involving the proximal phalanx of the 4th toe. Suspicious for septic arthritis of the 4th metatarsophalangeal joint. Bone marrow edema and questionable small erosion noted at the head of the 3rd metatarsal bone may represent an early osteomyelitis. Mild bone marrow edema noted at the proximal phalanx of the 3rd and 5th toe likely represent reactive changes due to hyperemia. Diffuse soft tissue infection/inflammatory process at the lateral distal portion of the left foot associated with foci of air in the subcutaneous and deep soft tissue. The possibility of small abscess formation cannot be totally excluded in this noncontrast enhanced study. Soft tissue edema and diffuse myositis at the mid and distal portion of the left foot.
--- NOTE | 2017-12-20 14:54 | CP.PCM.PN ---
Subjective - Date & Time of Evaluation Date of Evaluation: 12/20/17 Time of Evaluation: 14:40 - Subjective Subjective: Podiatry note for Dr. Hernandez 52 year old male patient 2 days s/p LEFT foot incision and drainage was seen at bedside this morning. Patient is resting comfortably in bed with no acute distress AAOx3. Patient's is present bedside. Dressing to Left lower extremity appears clean dry and intact. Patient was advised of possible revisional surgery of Left foot incision and drainage during his stay. Patient denies of any N/V/F/C or SOB today Patient was informed about MRI result. Patient was informed of possible treatment courses including amputation of Left foot 3rd, 4th, possibly 5th digits. Patient is adamantly refusing amputation and is requesting IV abx treatment which he had in the past. Patient was educated of possible outcomes including proximal advancement of Osteomyelitis. Objective - Vital Signs/Intake and Output Vital Signs (last 24 hours): Temp Pulse Resp BP Pulse Ox 98.7 F 98 H 20 148/79 95 12/20/17 07:33 12/20/17 07:33 12/20/17 07:33 12/20/17 07:33 12/20/17 07:33 Intake and Output: 12/20/17 12/20/17 06:59 18:59 Intake Total 1300 Balance 1300 - Medications Medications: Current Medications Benzonatate (Tessalon Perles) 100 mg PO TID [facility] Last Admin: 12/20/17 14:06 Dose: 100 mg Dextrose (Dextrose 50% Inj) 0 ml IVP .STAT PRN; Protocol PRN Reason: Hypoglycemia Protocol Dextrose (Glutose 15) 0 gm PO .ONCE PRN; Protocol PRN Reason: Hypoglycemia Protocol Glucagon (Glucagen Diagnostic Kit) 0 mg IM .STAT PRN; Protocol PRN Reason: Hypoglycemia Protocol Hydromorphone HCl (Dilaudid) 0.5 mg IVP Q4H PRN PRN Reason: Pain, severe (8-10) Last Admin: 12/20/17 14:20 Dose: 0.5 mg Meropenem 500 mg/ Sodium (Chloride) 100 mls @ 100 mls/hr IVPB Q6H [facility] PRN Reason: Protocol Last Admin: 12/20/17 14:02 Dose: 100 mls/hr Vancomycin/Sodium Chloride (Vancomycin 1 Gm/Ns 200 Ml) 1 gm in 200 mls @ 166.7 mls/hr IVPB Q12H [facility] PRN Reason: Protocol Stop: 12/23/17 10:01 Last Admin: 12/20/17 10:14 Dose: 166.7 mls/hr Lactated Ringer's (Lactated Ringer's) 1,000 mls @ 150 mls/hr IV .Q6H40M [facility] Last Admin: 12/20/17 10:07 Dose: Not Given Dextrose (Dextrose 5% In Water 1000 Ml) 1,000 mls @ 0 mls/hr IV .Q0M PRN; Protocol; Per Protocol PRN Reason: Hypoglycemia Protocol Insulin Detemir (Levemir) 20 unit SC HS [facility] Last Admin: 12/20/17 00:38 Dose: 20 unit Insulin Human Regular (Novolin R) 0 unit SC Q6 [facility] PRN Reason: Protocol Last Admin: 12/20/17 11:39 Dose: 2 unit Pantoprazole Sodium (Protonix Ec Tab) 40 mg PO DAILY [facility] Last Admin: 12/20/17 10:13 Dose: 40 mg Saccharomyces Boulardii (Florastor) 250 mg PO BID [facility] Last Admin: 12/20/17 10:13 Dose: 250 mg - Labs Labs: 12/20/17 08:14 12/20/17 08:14 PT 15.0 SECONDS (9.7-12.2) H 12/17/17 22:10 INR 1.3 12/17/17 22:10 APTT 27 SECONDS (21-34) 12/17/17 22:10 - Constitutional Appears: Well, Non-toxic, No Acute Distress - Head Exam Head Exam: ATRAUMATIC - Extremities Exam Additional comments: Left lower extremity exam DERM: DORSAL: 6cm Incision to Dorsal aspect remains well coapted, sutured with an opening in the middle. 1/4 inch iodoform packing was removed today. 1mL of purulent drainage was noted from this incision site. Medial: 6cm Incision remains well coapted, sutured with an opening in the middle. 1/4 inch iodoform packing was removed today. No purulent drainage was noted from this incision site. Plantar: 6cm Incision remains well coapted, sutured with an opening in the middle. 1/4 inch iodoform packing was removed today. No purulent drainage was noted from this incision site. Lateral lecm Incision at the level of ankle joint laterally remains well coapted, sutured with an opening in the middle. 1/4 inch iodoform packing was removed today. No purulent drainage was noted from this incision site. VASC: Non-palpable DP/PT noted secondary to edema. 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 less than 3 seconds noted to all digits NEURO: Gross sensation intact ORTHO: Pain on palpation to Left foot, Passive ROM to joints cannot be tested due to guarding - Neurological Exam Neurological Exam: Alert, Awake, Oriented x3 - Psychiatric Exam Psychiatric exam: Normal Affect, Normal Mood Assessment and Plan - Assessment and Plan (Free Text) Assessment: 52 yo male patient with chronic LEFT foot ulceration, soft tissue emphysema; 2 days s/p LEFT foot incision and drainage Plan: Patient was seen and evaluated Labs and vitals reviewed WBC 9.4, Afebrile Iodoform packing strips removed from all incision sites. Left foot cleansed with saline, dressed with Betadine, DSD, MILAGROS MRI : OM to LEFT foot 3rd, 4th ray, 5th digit. -Patient was informed of the MRI result with possible treatment options. Amputation of left 3rd 4th 5th rays discussed, which patient adamantly refused. -Patient was informed of possible outcome including advancement of OM, systemic infection Continue Pain medicaions Continue IV Abx Patient to be non-weight bearing to Left lower extremity Podiatry will continue to follow in house
--- NOTE | 2017-12-20 15:48 | CP.PCM.PN ---
<BasilLucreciamurphy Irizarry - Last Filed: 12/20/17 15:45> Subjective - Date & Time of Evaluation Date of Evaluation: 12/20/17 Time of Evaluation: 07:20 - Subjective Subjective: Medicine progress note (Dr. Taylor's service) Patient was seen and examined at bedside s/p Left foot and leg incision and drainage POD #3 . Patient reports that he is doing well; cough symptoms improved and pain is well control. Patient denies chest pain, SOB, palpitations , nausea, vomiting, fever, chills, abdominal pain. Patient will continue to work with physical therapy. Patient is able to wiggle his toes and has sensation. Objective - Vital Signs/Intake and Output Vital Signs (last 24 hours): Temp Pulse Resp BP Pulse Ox 98.7 F 98 H 20 148/79 95 12/20/17 07:33 12/20/17 14:57 12/20/17 07:33 12/20/17 14:57 12/20/17 14:57 Intake and Output: 12/20/17 12/20/17 06:59 18:59 Intake Total 1300 750 Balance 1300 750 - Medications Medications: Current Medications Benzonatate (Tessalon Perles) 100 mg PO TID [facility] Last Admin: 12/20/17 14:06 Dose: 100 mg Dextrose (Dextrose 50% Inj) 0 ml IVP .STAT PRN; Protocol PRN Reason: Hypoglycemia Protocol Dextrose (Glutose 15) 0 gm PO .ONCE PRN; Protocol PRN Reason: Hypoglycemia Protocol Glucagon (Glucagen Diagnostic Kit) 0 mg IM .STAT PRN; Protocol PRN Reason: Hypoglycemia Protocol Hydromorphone HCl (Dilaudid) 0.5 mg IVP Q4H PRN PRN Reason: Pain, severe (8-10) Last Admin: 12/20/17 14:20 Dose: 0.5 mg Meropenem 500 mg/ Sodium (Chloride) 100 mls @ 100 mls/hr IVPB Q6H [facility] PRN Reason: Protocol Last Admin: 12/20/17 14:02 Dose: 100 mls/hr Vancomycin/Sodium Chloride (Vancomycin 1 Gm/Ns 200 Ml) 1 gm in 200 mls @ 166.7 mls/hr IVPB Q12H [facility] PRN Reason: Protocol Stop: 12/23/17 10:01 Last Admin: 12/20/17 10:14 Dose: 166.7 mls/hr Lactated Ringer's (Lactated Ringer's) 1,000 mls @ 150 mls/hr IV .Q6H40M [facility] Last Admin: 12/20/17 10:07 Dose: Not Given Dextrose (Dextrose 5% In Water 1000 Ml) 1,000 mls @ 0 mls/hr IV .Q0M PRN; Protocol; Per Protocol PRN Reason: Hypoglycemia Protocol Insulin Detemir (Levemir) 20 unit SC HS [facility] Last Admin: 12/20/17 00:38 Dose: 20 unit Insulin Human Regular (Novolin R) 0 unit SC Q6 [facility] PRN Reason: Protocol Last Admin: 12/20/17 11:39 Dose: 2 unit Pantoprazole Sodium (Protonix Ec Tab) 40 mg PO DAILY [facility] Last Admin: 12/20/17 10:13 Dose: 40 mg Saccharomyces Boulardii (Florastor) 250 mg PO BID [facility] Last Admin: 12/20/17 10:13 Dose: 250 mg - Labs Labs: 12/20/17 08:14 12/20/17 08:14 PT 15.0 SECONDS (9.7-12.2) H 12/17/17 22:10 INR 1.3 12/17/17 22:10 APTT 27 SECONDS (21-34) 12/17/17 22:10 - Constitutional Appears: Well, No Acute Distress - Head Exam Head Exam: ATRAUMATIC, NORMAL INSPECTION - Eye Exam Eye Exam: EOMI, Normal appearance - ENT Exam ENT Exam: Mucous Membranes Moist - Respiratory Exam Respiratory Exam: Clear to Ausculation Bilateral, NORMAL BREATHING PATTERN. absent: Rhonchi, Wheezes, Respiratory Distress - Cardiovascular Exam Cardiovascular Exam: REGULAR RHYTHM, +S1, +S2, Murmur - GI/Abdominal Exam GI & Abdominal Exam: Soft, Normal Bowel Sounds. absent: Distended, Firm, Guarding, Rigid, Tenderness - Extremities Exam Additional comments: s/p Left foot and leg incision and drainage POD #3 Wound dressing managed by podiatry team Dressing is clean, dry and intact - Neurological Exam Neurological Exam: Alert, Awake, Oriented x3 - Psychiatric Exam Psychiatric exam: Normal Affect - Skin Skin Exam: Normal Color Assessment and Plan (1) Diabetic foot ulcers Assessment & Plan: Podiatry, Dr. Hernandez on board----> Help appreciated * S/p bedside incision and drainage 12/18/17 * S/p left foot incision and drainage for left foot soft tissue emphysema POD #2 * wound care and pain management as per podiatry team (+) Leukocytosis ( WBC) 18.9; afebrile (WBC trending down) * Infectious Disease consult, Dr Brooks * Blood culture and wound culture: No growth and negative rods ( Group G strep) , respectively Imaging: X-ray left foot - gas emphysema noted dorsum and plantar aspect of midfoot Left foot X-rays s/p bedside i and d (12/18/17): Postsurgical changes with subcutaneous emphysema seen. Focal osteopenia in the 4th and 5th metatarsal heads may reflect underlying osteomyelitis. Left foot X-rays left tib-fib (12/18/17): Subcutaneous emphysema is seen tracking along the lateral lower extremity. Left foot X-ray (12/17/17): Extensive left forefoot subcutaneous gas and poor visualization of the 4th metatarsal head is likely related to osteomyelitis and soft tissue abscess. MRI to assess for osteomyelitis - Findings consistent with osteomyelitis involving the distal portion and the head of the 4th metatarsal and also involving the proximal phalanx of the 4th toe. * Suspicious for septic arthritis of the 4th metatarsophalangeal joint. * Bone marrow edema and questionable small erosion noted at the head of the 3rd metatarsal bone may represent an early osteomyelitis. * Mild bone marrow edema noted at the proximal phalanx of the 3rd and 5th toe likely represent reactive changes due to hyperemia. * Diffuse soft tissue infection/inflammatory process at the lateral distal portion of the left foot associated with foci of air in the subcutaneous and deep soft tissue. The possibility of small abscess formation cannot be totally excluded in this noncontrast enhanced study. * Soft tissue edema and diffuse myositis at the mid and distal portion of the left foot. * As per podiatry note (12/20/17): Patient was informed of the MRI result with possible treatment options. Amputation of left 3rd 4th 5th rays discussed, which patient adamantly refused. -Patient was informed of possible outcome including advancement of OM, systemic infection Medication/Management: Dilaudid 0.5mg IVP Q4H PRN for pain control Meropenem 500mg IV Q6H (Started 12/18/17) Vancomycin 1g IV Q12H (Started 12/18/17) Florastor 250mg PO BID PT/OT treatment and evaluation Status: Acute (2) Uncontrolled diabetes mellitus Assessment & Plan: HbgA1C (12/18/17): 12.3 Accuchecks ISS- High dose Levemir 20 units HS Hypoglycemia protocol Status: Acute (3) HTN (hypertension) Assessment & Plan: BP well controlled Continue home med Lisinopril 10mg PO QD (renal protective as well) Status: Chronic (4) Prophylactic measure Assessment & Plan: I: Protonix 40mg PO QD DVT: SCD and anticoagulation contraindicated due to s/p left foot incision and drainage for left foot soft tissue emphysema POD #2, to restart as per podiatry' s recommendation. Patient is ambulating with physical therapy. Heart healthy, diabetic diet Disposition: Patient will continued to be follow by podiatry. May need another procedure due to new findings on the Left lower extremity MRI All plans and management discussed with Dr. Taylor Status: Acute <Giuliano Taylor H - Last Filed: 12/20/17 16:42> Objective - Vital Signs/Intake and Output Vital Signs (last 24 hours): Temp Pulse Resp BP Pulse Ox 98.5 F 106 H 20 158/80 H 97 12/20/17 16:27 12/20/17 16:27 12/20/17 16:27 12/20/17 16:27 12/20/17 16:27 Intake and Output: 12/20/17 12/20/17 06:59 18:59 Intake Total 1300 750 Balance 1300 750 - Medications Medications: Current Medications Benzonatate (Tessalon Perles) 100 mg PO TID PRN PRN Reason: FOR COUGH Dextrose (Dextrose 50% Inj) 0 ml IVP .STAT PRN; Protocol PRN Reason: Hypoglycemia Protocol Dextrose (Glutose 15) 0 gm PO .ONCE PRN; Protocol PRN Reason: Hypoglycemia Protocol Glucagon (Glucagen Diagnostic Kit) 0 mg IM .STAT PRN; Protocol PRN Reason: Hypoglycemia Protocol Hydromorphone HCl (Dilaudid) 0.5 mg IVP Q4H PRN PRN Reason: Pain, severe (8-10) Last Admin: 12/20/17 14:20 Dose: 0.5 mg Meropenem 500 mg/ Sodium (Chloride) 100 mls @ 100 mls/hr IVPB Q6H [facility] PRN Reason: Protocol Last Admin: 12/20/17 14:02 Dose: 100 mls/hr Vancomycin/Sodium Chloride (Vancomycin 1 Gm/Ns 200 Ml) 1 gm in 200 mls @ 166.7 mls/hr IVPB Q12H [facility] PRN Reason: Protocol Stop: 12/23/17 10:01 Last Admin: 12/20/17 10:14 Dose: 166.7 mls/hr Lactated Ringer's (Lactated Ringer's) 1,000 mls @ 150 mls/hr IV .Q6H40M [facility] Last Admin: 12/20/17 10:07 Dose: Not Given Dextrose (Dextrose 5% In Water 1000 Ml) 1,000 mls @ 0 mls/hr IV .Q0M PRN; Protocol; Per Protocol PRN Reason: Hypoglycemia Protocol Insulin Detemir (Levemir) 20 unit SC HS [facility] Last Admin: 12/20/17 00:38 Dose: 20 unit Insulin Human Regular (Novolin R) 0 unit SC Q6 [facility] PRN Reason: Protocol Last Admin: 12/20/17 11:39 Dose: 2 unit Pantoprazole Sodium (Protonix Ec Tab) 40 mg PO DAILY [facility] Last Admin: 12/20/17 10:13 Dose: 40 mg Saccharomyces Boulardii (Florastor) 250 mg PO BID [facility] Last Admin: 12/20/17 10:13 Dose: 250 mg - Labs Labs: 12/20/17 08:14 12/20/17 08:14 PT 15.0 SECONDS (9.7-12.2) H 12/17/17 22:10 INR 1.3 12/17/17 22:10 APTT 27 SECONDS (21-34) 12/17/17 22:10 Attending/Attestation - Attestation I have personally seen and examined this patient.: Yes I have fully participated in the care of the patient.: Yes I have reviewed all pertinent clinical information, including history, physical exam and plan: Yes Notes (Text): 12/20/17 16:42 Medical attending: Patient was seen and examined by me Agree with the above note by the resident Family member was present at bedside. Patient was ok with family at bedside He was not in any acute distress today. He reported that the pain in his left foot was greatly decreased as well. He remains on IV antibiotics at this time. He does have gram-negative growth from the wound cultures. When we saw the patient he had just returned back from MRI the results were not ready at that moment. However later on in the day the MRI results did return and unfortunately it did show what we suspected that the patient did have osteomyelitis and it was quite extensive. This involves the distal portion and the head of the fourth metatarsal area as well as the proximal phalanx of fourth toe is questionable septic arthritis in the fourth metatarsal joint as well. Also suspicious areas of the third metatarsal areas. Podiatry did see these results and discussed it with the patient however from what they have written down he didn't feel comfortable with regards to amputation in that area. I'll talk to the patient again tomorrow, with regards to amputation. If not he might need to get a PICC line the patient might need an IV antibiotics for a long time however this might not be successful Yesterday we increased his insulin regimen as well, we'll see how it does today and tomorrow and we'll see if we need to increase it again. His hemoglobin A1c is very high thank you Giuliano Taylor
--- NOTE | 2017-12-20 18:40 | CP.PCM.PN ---
Subjective - Date & Time of Evaluation Date of Evaluation: 12/20/17 Time of Evaluation: 08:00 - Subjective Subjective: MRI of concern for OM left foot May need CT angio/ vascular eval further debridement may be needed / osteotomy cultures reviewed - pansensitive proteus + Strep will adjust antibiotics Objective - Vital Signs/Intake and Output Vital Signs (last 24 hours): Temp Pulse Resp BP Pulse Ox 98.5 F 106 H 20 158/80 H 97 12/20/17 16:27 12/20/17 16:27 12/20/17 16:27 12/20/17 16:27 12/20/17 16:27 Intake and Output: 12/20/17 12/20/17 06:59 18:59 Intake Total 1300 750 Balance 1300 750 - Medications Medications: Current Medications Benzonatate (Tessalon Perles) 100 mg PO TID PRN PRN Reason: FOR COUGH Dextrose (Dextrose 50% Inj) 0 ml IVP .STAT PRN; Protocol PRN Reason: Hypoglycemia Protocol Dextrose (Glutose 15) 0 gm PO .ONCE PRN; Protocol PRN Reason: Hypoglycemia Protocol Glucagon (Glucagen Diagnostic Kit) 0 mg IM .STAT PRN; Protocol PRN Reason: Hypoglycemia Protocol Hydromorphone HCl (Dilaudid) 0.5 mg IVP Q4H PRN PRN Reason: Pain, severe (8-10) Last Admin: 12/20/17 14:20 Dose: 0.5 mg Meropenem 500 mg/ Sodium (Chloride) 100 mls @ 100 mls/hr IVPB Q6H [facility] PRN Reason: Protocol Last Admin: 12/20/17 14:02 Dose: 100 mls/hr Vancomycin/Sodium Chloride (Vancomycin 1 Gm/Ns 200 Ml) 1 gm in 200 mls @ 166.7 mls/hr IVPB Q12H [facility] PRN Reason: Protocol Stop: 12/23/17 10:01 Last Admin: 12/20/17 10:14 Dose: 166.7 mls/hr Lactated Ringer's (Lactated Ringer's) 1,000 mls @ 150 mls/hr IV .Q6H40M [facility] Last Admin: 12/20/17 10:07 Dose: Not Given Dextrose (Dextrose 5% In Water 1000 Ml) 1,000 mls @ 0 mls/hr IV .Q0M PRN; Protocol; Per Protocol PRN Reason: Hypoglycemia Protocol Insulin Detemir (Levemir) 20 unit SC HS [facility] Last Admin: 12/20/17 00:38 Dose: 20 unit Insulin Human Regular (Novolin R) 0 unit SC Q6 [facility] PRN Reason: Protocol Last Admin: 12/20/17 17:26 Dose: 6 unit Pantoprazole Sodium (Protonix Ec Tab) 40 mg PO DAILY [facility] Last Admin: 12/20/17 10:13 Dose: 40 mg Saccharomyces Boulardii (Florastor) 250 mg PO BID [facility] Last Admin: 12/20/17 17:25 Dose: 250 mg - Labs Labs: 12/20/17 08:14 12/20/17 08:14 PT 15.0 SECONDS (9.7-12.2) H 12/17/17 22:10 INR 1.3 12/17/17 22:10 APTT 27 SECONDS (21-34) 12/17/17 22:10 - Constitutional Appears: Non-toxic, Chronically Ill - Head Exam Head Exam: NORMOCEPHALIC - Eye Exam Eye Exam: PERRL - ENT Exam ENT Exam: Mucous Membranes Dry - Neck Exam Neck Exam: absent: Lymphadenopathy - Respiratory Exam Respiratory Exam: Decreased Breath Sounds, Clear to Ausculation Bilateral - Cardiovascular Exam Cardiovascular Exam: REGULAR RHYTHM, +S1, +S2 - GI/Abdominal Exam GI & Abdominal Exam: Distended - Rectal Exam Rectal Exam: Deferred - Exam Exam: NORMAL INSPECTION - Extremities Exam Extremities Exam: Pedal Edema - Back Exam Back Exam: absent: CVA tenderness (L), CVA tenderness (R) Assessment and Plan (1) Diabetic foot ulcers Status: Acute (2) Alcohol abuse Status: Acute (3) Osteomyelitis Status: Acute (4) Osteomyelitis Status: Acute - Assessment and Plan (Free Text) Assessment: cont iv antibiotics and wound care
[2017-12-20] MEDS: Piperacillin/Tazobact 3.375 GM in Sodium Chloride 100 ML IVPB SCH (20:47)
[2017-12-21] MEDS: (Novolin R) Insulin Human Regular 100 units/ml vial SC SCH ×4 (00:55→19:15)
[2017-12-21] MEDS: HYDROmorphone 0.5 mg/0.5 ml ISec IVP PRN ×5 (01:41→20:24)
[2017-12-21] MEDS: Piperacillin/Tazobact 3.375 GM in Sodium Chloride 100 ML IVPB SCH ×3 (03:20→19:15)
[2017-12-21] MEDS: Lactated Ringer's 1,000 ML IV SCH ×2 (04:10→05:49)
--- NOTE | 2017-12-21 07:55 | CP.PCM.PN ---
<Slick Smith - Last Filed: 12/21/17 07:51> Subjective - Date & Time of Evaluation Date of Evaluation: 12/21/17 Time of Evaluation: 07:53 - Subjective Subjective: PGY1 Medicine Note for Dr. Taylor Patient seen and examined at bedside this morning. Patient is awake, resting comfortably in bed. He has started walking with a walker and his pain has been well controlled. He states that he is feeling well and currently has no complaints. Denies fevers, chills, nausea, vomiting, diarrhea, constipation, chest pain, abdominal pain, headaches, numbness or tingling. Objective - Vital Signs/Intake and Output Vital Signs (last 24 hours): Temp Pulse Resp BP Pulse Ox 98.4 F 88 20 140/79 95 12/21/17 07:37 12/21/17 07:37 12/21/17 07:37 12/21/17 07:37 12/21/17 07:37 Intake and Output: 12/21/17 12/21/17 06:59 18:59 Intake Total 1320 800 Output Total 950 Balance 1320 -150 - Medications Medications: Current Medications Benzonatate (Tessalon Perles) 100 mg PO TID PRN PRN Reason: FOR COUGH Dextrose (Dextrose 50% Inj) 0 ml IVP .STAT PRN; Protocol PRN Reason: Hypoglycemia Protocol Dextrose (Glutose 15) 0 gm PO .ONCE PRN; Protocol PRN Reason: Hypoglycemia Protocol Glucagon (Glucagen Diagnostic Kit) 0 mg IM .STAT PRN; Protocol PRN Reason: Hypoglycemia Protocol Hydromorphone HCl (Dilaudid) 0.5 mg IVP Q4H PRN PRN Reason: Pain, severe (8-10) Last Admin: 12/21/17 05:47 Dose: 0.5 mg Lactated Ringer's (Lactated Ringer's) 1,000 mls @ 150 mls/hr IV .Q6H40M [facility] Last Admin: 12/21/17 05:49 Dose: 150 mls/hr Dextrose (Dextrose 5% In Water 1000 Ml) 1,000 mls @ 0 mls/hr IV .Q0M PRN; Protocol; Per Protocol PRN Reason: Hypoglycemia Protocol Piperacillin Sod/Tazobactam (Sod 3.375 gm/ Sodium Chloride) 100 mls @ 200 mls/ hr IVPB Q8H [facility] PRN Reason: Protocol Last Admin: 12/21/17 03:20 Dose: 200 mls/hr Insulin Detemir (Levemir) 20 unit SC HS [facility] Last Admin: 12/20/17 22:02 Dose: 20 unit Insulin Human Regular (Novolin R) 0 unit SC Q6 [facility] PRN Reason: Protocol Last Admin: 12/21/17 06:17 Dose: 2 unit Pantoprazole Sodium (Protonix Ec Tab) 40 mg PO DAILY [facility] Last Admin: 12/20/17 10:13 Dose: 40 mg Saccharomyces Boulardii (Florastor) 250 mg PO BID [facility] Last Admin: 12/20/17 17:25 Dose: 250 mg - Labs Labs: 12/20/17 08:14 12/20/17 08:14 PT 15.0 SECONDS (9.7-12.2) H 12/17/17 22:10 INR 1.3 12/17/17 22:10 APTT 27 SECONDS (21-34) 12/17/17 22:10 - Constitutional Appears: Non-toxic, No Acute Distress - Head Exam Head Exam: ATRAUMATIC, NORMOCEPHALIC - Eye Exam Eye Exam: EOMI, Normal appearance - ENT Exam Additional comments: missing multiple teeth - Respiratory Exam Respiratory Exam: Clear to Ausculation Bilateral, NORMAL BREATHING PATTERN. absent: Accessory Muscle Use, Rales, Rhonchi, Wheezes, Respiratory Distress - Cardiovascular Exam Cardiovascular Exam: REGULAR RHYTHM, +S1, +S2 - GI/Abdominal Exam GI & Abdominal Exam: Soft, Normal Bowel Sounds. absent: Distended, Firm, Guarding, Rigid, Tenderness - Extremities Exam Extremities Exam: absent: Calf Tenderness Additional comments: dressing on left foot c/d/i - Neurological Exam Neurological Exam: Alert, Awake, Oriented x3 - Psychiatric Exam Psychiatric exam: Normal Affect, Normal Mood - Skin Skin Exam: Dry, Warm Assessment and Plan - Assessment and Plan (Free Text) Plan: (1) Diabetic foot ulcers Assessment & Plan: Podiatry, Dr. Hernandez on board----> Help appreciated * S/p bedside incision and drainage 12/18/17 * S/p left foot incision and drainage for left foot soft tissue emphysema POD #2 * wound care and pain management as per podiatry team (+) Leukocytosis ( WBC) 9.4, afebrile (WBC trending down) * Infectious Disease consult, Dr Brooks * Blood culture negative at 48hours x2 * Left foot wound culture:Proteus Mirabilis and Group G Strep Imaging: X-ray left foot - gas emphysema noted dorsum and plantar aspect of midfoot Left foot X-rays s/p bedside i and d (12/18/17): Postsurgical changes with subcutaneous emphysema seen. Focal osteopenia in the 4th and 5th metatarsal heads may reflect underlying osteomyelitis. Left foot X-rays left tib-fib (12/18/17): Subcutaneous emphysema is seen tracking along the lateral lower extremity. Left foot X-ray (12/17/17): Extensive left forefoot subcutaneous gas and poor visualization of the 4th metatarsal head is likely related to osteomyelitis and soft tissue abscess. MRI to assess for osteomyelitis - Findings consistent with osteomyelitis involving the distal portion and the head of the 4th metatarsal and also involving the proximal phalanx of the 4th toe. * Suspicious for septic arthritis of the 4th metatarsophalangeal joint. * Bone marrow edema and questionable small erosion noted at the head of the 3rd metatarsal bone may represent an early osteomyelitis. * Mild bone marrow edema noted at the proximal phalanx of the 3rd and 5th toe likely represent reactive changes due to hyperemia. * Diffuse soft tissue infection/inflammatory process at the lateral distal portion of the left foot associated with foci of air in the subcutaneous and deep soft tissue. The possibility of small abscess formation cannot be totally excluded in this noncontrast enhanced study. * Soft tissue edema and diffuse myositis at the mid and distal portion of the left foot. * As per podiatry note (12/20/17): Patient was informed of the MRI result with possible treatment options. Amputation of left 3rd 4th 5th rays discussed, which patient adamantly refused. -Patient was informed of possible outcome including advancement of OM, systemic infection Medication/Management: Dilaudid 0.5mg IVP Q4H PRN for pain control Meropenem 500mg IV Q6H (Started 12/18/17) Vancomycin 1g IV Q12H (Started 12/18/17) Florastor 250mg PO BID PT/OT treatment and evaluation Status: Acute (2) Uncontrolled diabetes mellitus Assessment & Plan: HbgA1C (12/18/17): 12.3 Accuchecks ISS- High dose Levemir 20 units HS Hypoglycemia protocol Status: Acute (3) HTN (hypertension) Assessment & Plan: BP well controlled Continue home med Lisinopril 10mg PO QD (renal protective as well) Status: Chronic (4) Prophylactic measure Assessment & Plan: I: Protonix 40mg PO QD DVT: SCD and anticoagulation contraindicated due to s/p left foot incision and drainage for left foot soft tissue emphysema POD #2, to restart as per podiatry' s recommendation. Patient is ambulating with physical therapy. Heart healthy, diabetic diet Status: Acute Disposition: Patient will continued to be follow by podiatry. May need another procedure due to new findings on the Left lower extremity MRI All plans and management discussed with Dr. Claudia Kruger Sarah PGY1 <Giuliano Taylor H - Last Filed: 12/21/17 10:38> Objective - Vital Signs/Intake and Output Vital Signs (last 24 hours): Temp Pulse Resp BP Pulse Ox 98.4 F 88 20 140/79 95 12/21/17 07:37 12/21/17 07:37 12/21/17 07:37 12/21/17 07:37 12/21/17 07:37 Intake and Output: 12/21/17 12/21/17 06:59 18:59 Intake Total 1320 800 Output Total 950 Balance 1320 -150 - Medications Medications: Current Medications Benzonatate (Tessalon Perles) 100 mg PO TID PRN PRN Reason: FOR COUGH Last Admin: 12/21/17 09:57 Dose: 100 mg Dextrose (Dextrose 50% Inj) 0 ml IVP .STAT PRN; Protocol PRN Reason: Hypoglycemia Protocol Dextrose (Glutose 15) 0 gm PO .ONCE PRN; Protocol PRN Reason: Hypoglycemia Protocol Glucagon (Glucagen Diagnostic Kit) 0 mg IM .STAT PRN; Protocol PRN Reason: Hypoglycemia Protocol Hydromorphone HCl (Dilaudid) 0.5 mg IVP Q4H PRN PRN Reason: Pain, severe (8-10) Last Admin: 12/21/17 05:47 Dose: 0.5 mg Dextrose (Dextrose 5% In Water 1000 Ml) 1,000 mls @ 0 mls/hr IV .Q0M PRN; Protocol; Per Protocol PRN Reason: Hypoglycemia Protocol Piperacillin Sod/Tazobactam (Sod 3.375 gm/ Sodium Chloride) 100 mls @ 200 mls/ hr IVPB Q8H [facility] PRN Reason: Protocol Last Admin: 12/21/17 03:20 Dose: 200 mls/hr Insulin Detemir (Levemir) 20 unit SC HS [facility] Last Admin: 12/20/17 22:02 Dose: 20 unit Insulin Human Regular (Novolin R) 0 unit SC Q6 [facility] PRN Reason: Protocol Last Admin: 12/21/17 06:17 Dose: 2 unit Pantoprazole Sodium (Protonix Ec Tab) 40 mg PO DAILY [facility] Last Admin: 12/21/17 09:57 Dose: 40 mg Saccharomyces Boulardii (Florastor) 250 mg PO BID [facility] Last Admin: 12/21/17 09:57 Dose: 250 mg - Labs Labs: 12/21/17 08:18 12/21/17 08:18 PT 15.0 SECONDS (9.7-12.2) H 12/17/17 22:10 INR 1.3 12/17/17 22:10 APTT 27 SECONDS (21-34) 12/17/17 22:10 Attending/Attestation - Attestation I have personally seen and examined this patient.: Yes I have fully participated in the care of the patient.: Yes I have reviewed all pertinent clinical information, including history, physical exam and plan: Yes Notes (Text): 12/21/17 10:35 Medical attending: Patient was seen and examined by me. Agree with the above note by the resident The patient was told of the MRI results yesterday and he declined to have amputation despite the recommendations of podiatry surgery team Today I saw down at bedside and I explained to him that by declining the recomendations of podiatry that he is running a risk of many problems in the future - further more I pointed out to him that he was not very compliant with his diabetes control and this contributes to poor outcomes. He acknowledges that he was not taking his medications for diabetes regularly - but that from now on he would. For now will get a PICC line and it looks like he maybe here for some time with IV abx. thank you Giuliano Taylor
[2017-12-21 08:25] LABS: BASO % 0.5 % (0.0-2.0); EOS # 0.3 K/uL (0.0-0.7); EOS % 4.3 % (0.0-4.0); HEMOGLOBIN 8.7 g/dL (12.0-18.0); LYMPH # 1.3 K/uL (1.0-4.3); LYMPH % 20.2 % (20.0-40.0); MEAN CORPUSCULAR HEMOGLOBIN 32.7 pg (27.0-31.0); MEAN CORPUSCULAR HGB CONC 35.2 g/dL (33.0-37.0); MONO # 0.7 K/uL (0.0-0.8); MONO % 11.2 % (0.0-10.0); NEUT # 4.1 K/uL (1.8-7.0); NEUT % 63.8 % (50.0-75.0); RBC 2.65 Mil/uL (4.40-5.90); RED CELL DISTRIBUTION WIDTH 13.8 % (11.5-14.5); WHITE BLOOD COUNT 6.5 K/uL (4.8-10.8)
[2017-12-21 08:46] LABS: ALB/GLOB RATIO 0.7 (1.0-2.1); ALBUMIN 2.4 g/dL (3.5-5.0); ALT/SGPT 132 U/L (21-72); AST/SGOT 209 U/L (17-59); BLOOD UREA NITROGEN 5 mg/dL (9-20); CALCIUM 8.5 mg/dl (8.6-10.4); GFR AFRICAN-AMERICAN > 60; GFR NON-AFRICAN AMERICAN > 60
[2017-12-21] MEDS: Saccharomyces Boulardi 250 mg Cap PO SCH ×2 (09:57→17:36)
[2017-12-21] MEDS: Pantoprazole 40 mg EC Tab PO SCH (09:57)
--- NOTE | 2017-12-21 11:31 | CP.PCM.PN ---
Subjective - Date & Time of Evaluation Date of Evaluation: 12/21/17 Time of Evaluation: 11:29 - Subjective Subjective: Podiatry note for Dr. Hernandez 52 year old male patient 3 days s/p LEFT foot incision and drainage was seen at bedside this morning. Patient is resting comfortably in bed with no acute distress AAOx3. Patient's is present bedside. Dressing to Left lower extremity appears clean dry and intact. Patient was advised of possible revisional surgery of Left foot incision and drainage during his stay. Patient denies of any N/V/F/C or SOB today Patient was informed about MRI result. Patient was informed of possible treatment courses including amputation of Left foot 3rd, 4th, possibly 5th digits. Patient is adamantly refusing amputation and is requesting IV abx treatment which he had in the past. Patient was educated of possible outcomes including proximal advancement of Osteomyelitis. Objective - Vital Signs/Intake and Output Vital Signs (last 24 hours): Temp Pulse Resp BP Pulse Ox 98.4 F 88 20 140/79 95 12/21/17 07:37 12/21/17 07:37 12/21/17 07:37 12/21/17 07:37 12/21/17 07:37 Intake and Output: 12/21/17 12/21/17 06:59 18:59 Intake Total 1320 800 Output Total 950 Balance 1320 -150 - Medications Medications: Current Medications Benzonatate (Tessalon Perles) 100 mg PO TID PRN PRN Reason: FOR COUGH Last Admin: 12/21/17 09:57 Dose: 100 mg Dextrose (Dextrose 50% Inj) 0 ml IVP .STAT PRN; Protocol PRN Reason: Hypoglycemia Protocol Dextrose (Glutose 15) 0 gm PO .ONCE PRN; Protocol PRN Reason: Hypoglycemia Protocol Glucagon (Glucagen Diagnostic Kit) 0 mg IM .STAT PRN; Protocol PRN Reason: Hypoglycemia Protocol Hydromorphone HCl (Dilaudid) 0.5 mg IVP Q4H PRN PRN Reason: Pain, severe (8-10) Last Admin: 12/21/17 05:47 Dose: 0.5 mg Dextrose (Dextrose 5% In Water 1000 Ml) 1,000 mls @ 0 mls/hr IV .Q0M PRN; Protocol; Per Protocol PRN Reason: Hypoglycemia Protocol Piperacillin Sod/Tazobactam (Sod 3.375 gm/ Sodium Chloride) 100 mls @ 200 mls/ hr IVPB Q8H [facility]PLAC[facility] PRN Reason: Protocol Last Admin: 12/21/17 03:20 Dose: 200 mls/hr Insulin Detemir (Levemir) 20 unit SC HS [facility]PL[facility] Last Admin: 12/20/17 22:02 Dose: 20 unit Insulin Human Regular (Novolin R) 0 unit SC Q6 [facility] PRN Reason: Protocol Last Admin: 12/21/17 06:17 Dose: 2 unit Pantoprazole Sodium (Protonix Ec Tab) 40 mg PO DAILY [facility] Last Admin: 12/21/17 09:57 Dose: 40 mg Saccharomyces Boulardii (Florastor) 250 mg PO BID REPLAC[facility] Last Admin: 12/21/17 09:57 Dose: 250 mg - Labs Labs: 12/21/17 08:18 12/21/17 08:18 PT 15.0 SECONDS (9.7-12.2) H 12/17/17 22:10 INR 1.3 12/17/17 22:10 APTT 27 SECONDS (21-34) 12/17/17 22:10 - Constitutional Appears: Well, Non-toxic, No Acute Distress - Extremities Exam Additional comments: Left lower extremity exam DERM: DORSAL: 6cm Incision to Dorsal aspect remains well coapted, sutured with an opening in the middle. 1/4 inch iodoform packing was removed today. 10mL of purulent drainage was noted from this incision site. Medial: 6cm Incision remains well coapted, sutured with an opening in the middle. 1/4 inch iodoform packing was removed today. No purulent drainage was noted from this incision site. Plantar: 6cm Incision remains well coapted, sutured with an opening in the middle. 1/4 inch iodoform packing was removed today. No purulent drainage was noted from this incision site. Lateral lecm Incision at the level of ankle joint laterally remains well coapted, sutured with an opening in the middle. 1/4 inch iodoform packing was removed today. No purulent drainage was noted from this incision site. VASC: Non-palpable DP/PT noted secondary to edema. MAXILLOFACIAL SURGEON less than 3 seconds noted to all digits NEURO: Gross sensation intact ORTHO: Pain on palpation to Left foot, Passive ROM to joints cannot be tested due to guarding - Neurological Exam Neurological Exam: Alert, Awake, Oriented x3 - Psychiatric Exam Psychiatric exam: Normal Affect, Normal Mood Assessment and Plan - Assessment and Plan (Free Text) Assessment: 52 yo male patient with chronic LEFT foot ulceration, soft tissue emphysema; 3 days s/p LEFT foot incision and drainage Plan: Patient was seen and evaluated Labs and vitals reviewed WBC 9.4, Afebrile Left foot cleansed with saline, dressed with Betadine, DSD, MILAGROS MRI : OM to LEFT foot 3rd, 4th ray, 5th digit. -Patient was informed of the MRI result with possible treatment options. Amputation of left 3rd 4th 5th rays discussed, which patient adamantly refused. -Patient was informed of possible outcome including advancement of OM, systemic infection Continue Pain medicaions Continue IV Abx Patient to be non-weight bearing to Left lower extremity Podiatry will continue to follow in house
[2017-12-21] MEDS: Insulin Detemir 100 units/ml Vial (Levemir) SC SCH (22:25)
[2017-12-22] MEDS: (Novolin R) Insulin Human Regular 100 units/ml vial SC SCH ×4 (00:23→17:28)
[2017-12-22] MEDS: Piperacillin/Tazobact 3.375 GM in Sodium Chloride 100 ML IVPB SCH ×3 (03:13→19:04)
[2017-12-22] MEDS: HYDROmorphone 0.5 mg/0.5 ml ISec IVP PRN ×4 (04:00→22:11)
--- NOTE | 2017-12-22 06:57 | CP.PCM.PN ---
<Slick Smith - Last Filed: 12/22/17 06:54> Subjective - Date & Time of Evaluation Date of Evaluation: 12/22/17 Time of Evaluation: 06:55 - Subjective Subjective: PGY1 Medicine Note for Dr. Taylor Patient seen and examined at bedside this morning. Patient is awake, resting comfortably in bed. He is depressed after hearing the information about osteomyelitis yesterday and podiatry's recommendation of amputation. He still wants to attempt using antibiotics at this time. Denies fevers, chills, nausea, vomiting, diarrhea, constipation, chest pain, abdominal pain, headaches, numbness or tingling. Objective - Vital Signs/Intake and Output Vital Signs (last 24 hours): Temp Pulse Resp BP Pulse Ox 98.3 F 91 H 18 152/79 H 99 12/21/17 23:51 12/21/17 23:51 12/21/17 23:51 12/21/17 23:51 12/21/17 23:51 Intake and Output: 12/21/17 12/22/17 18:59 07:59 Intake Total 800 550 Output Total 950 900 Balance -150 -350 - Medications Medications: Current Medications Benzonatate (Tessalon Perles) 100 mg PO TID PRN PRN Reason: FOR COUGH Last Admin: 12/21/17 19:22 Dose: 100 mg Dextrose (Dextrose 50% Inj) 0 ml IVP .STAT PRN; Protocol PRN Reason: Hypoglycemia Protocol Dextrose (Glutose 15) 0 gm PO .ONCE PRN; Protocol PRN Reason: Hypoglycemia Protocol Glucagon (Glucagen Diagnostic Kit) 0 mg IM .STAT PRN; Protocol PRN Reason: Hypoglycemia Protocol Hydromorphone HCl (Dilaudid) 0.5 mg IVP Q4H PRN PRN Reason: Pain, severe (8-10) Last Admin: 12/22/17 04:00 Dose: 0.5 mg Piperacillin Sod/Tazobactam (Sod 3.375 gm/ Sodium Chloride) 100 mls @ 200 mls/ hr IVPB Q8H [facility] PRN Reason: Protocol Last Admin: 12/22/17 03:13 Dose: 200 mls/hr Insulin Detemir (Levemir) 20 unit SC HS [facility] Last Admin: 12/21/17 22:25 Dose: 20 unit Insulin Human Regular (Novolin R) 0 unit SC Q6 [facility] PRN Reason: Protocol Last Admin: 12/22/17 06:21 Dose: 10 unit Pantoprazole Sodium (Protonix Ec Tab) 40 mg PO DAILY [facility] Last Admin: 12/21/17 09:57 Dose: 40 mg Saccharomyces Boulardii (Florastor) 250 mg PO BID [facility] Last Admin: 12/21/17 17:36 Dose: 250 mg - Labs Labs: 12/21/17 08:18 12/21/17 08:18 PT 15.0 SECONDS (9.7-12.2) H 12/17/17 22:10 INR 1.3 12/17/17 22:10 APTT 27 SECONDS (21-34) 12/17/17 22:10 - Constitutional Appears: Non-toxic, No Acute Distress - Head Exam Head Exam: ATRAUMATIC, NORMOCEPHALIC - Eye Exam Eye Exam: EOMI. absent: Scleral icterus - ENT Exam ENT Exam: Mucous Membranes Moist Additional comments: missing multiple teeth - Respiratory Exam Respiratory Exam: Clear to Ausculation Bilateral, NORMAL BREATHING PATTERN. absent: Accessory Muscle Use, Rales, Rhonchi, Wheezes, Respiratory Distress - Cardiovascular Exam Cardiovascular Exam: REGULAR RHYTHM, +S1, +S2 - GI/Abdominal Exam GI & Abdominal Exam: Soft, Normal Bowel Sounds. absent: Distended, Firm, Guarding, Rigid, Tenderness - Extremities Exam Extremities Exam: absent: Calf Tenderness Additional comments: dressing on left foot c/d/i - Neurological Exam Neurological Exam: Alert, Awake, Oriented x3 - Psychiatric Exam Psychiatric exam: Depressed, Normal Affect - Skin Skin Exam: Dry, Warm Assessment and Plan - Assessment and Plan (Free Text) Plan: (1) Diabetic foot ulcers Assessment & Plan: Podiatry, Dr. Hernandez on board----> Help appreciated * S/p bedside incision and drainage 12/18/17 * S/p left foot incision and drainage for left foot soft tissue emphysema POD #3 * wound care and pain management as per podiatry team (+) Leukocytosis ( WBC) 6.5, afebrile (WBC trending down) * Infectious Disease consult, Dr Brooks * Blood culture negative at 3 days x2 * Left foot wound culture:Proteus Mirabilis and Group G Strep Imaging: X-ray left foot - gas emphysema noted dorsum and plantar aspect of midfoot Left foot X-rays s/p bedside i and d (12/18/17): Postsurgical changes with subcutaneous emphysema seen. Focal osteopenia in the 4th and 5th metatarsal heads may reflect underlying osteomyelitis. Left foot X-rays left tib-fib (12/18/17): Subcutaneous emphysema is seen tracking along the lateral lower extremity. Left foot X-ray (12/17/17): Extensive left forefoot subcutaneous gas and poor visualization of the 4th metatarsal head is likely related to osteomyelitis and soft tissue abscess. MRI to assess for osteomyelitis - Findings consistent with osteomyelitis involving the distal portion and the head of the 4th metatarsal and also involving the proximal phalanx of the 4th toe. * Suspicious for septic arthritis of the 4th metatarsophalangeal joint. * Bone marrow edema and questionable small erosion noted at the head of the 3rd metatarsal bone may represent an early osteomyelitis. * Mild bone marrow edema noted at the proximal phalanx of the 3rd and 5th toe likely represent reactive changes due to hyperemia. * Diffuse soft tissue infection/inflammatory process at the lateral distal portion of the left foot associated with foci of air in the subcutaneous and deep soft tissue. The possibility of small abscess formation cannot be totally excluded in this noncontrast enhanced study. * Soft tissue edema and diffuse myositis at the mid and distal portion of the left foot. * As per podiatry note (12/20/17): Patient was informed of the MRI result with possible treatment options. Amputation of left 3rd 4th 5th rays discussed, which patient adamantly refused. -Patient was informed of possible outcome including advancement of OM, systemic infection PICC line placement for supervisor intermediates IV antibiotics to treat OM Medication/Management: Dilaudid 0.5mg IVP Q4H PRN for pain control Meropenem 500mg IV Q6H (Started 12/18/17) Vancomycin 1g IV Q12H (Started 12/18/17) Florastor 250mg PO BID PT/OT treatment and evaluation Status: Acute (2) Uncontrolled diabetes mellitus Assessment & Plan: HbgA1C (12/18/17): 12.3 Accuchecks ISS- High dose Levemir 20 units HS Hypoglycemia protocol Status: Acute (3) HTN (hypertension) Assessment & Plan: BP well controlled Continue home med Lisinopril 10mg PO QD (renal protective as well) Status: Chronic (4) Prophylactic measure Assessment & Plan: I: Protonix 40mg PO QD DVT: SCD and anticoagulation contraindicated due to s/p left foot incision and drainage for left foot soft tissue emphysema POD #3, to restart as per podiatry' s recommendation. Patient is ambulating with physical therapy. Heart healthy, diabetic diet Status: Acute Disposition: Patient will continued to be follow by podiatry. May need another procedure due to new findings on the Left lower extremity MRI. Will discuss case with Dr. Claudia Kruger Sarah PGY1 <Giuliano Taylor H - Last Filed: 12/22/17 12:04> Objective - Vital Signs/Intake and Output Vital Signs (last 24 hours): Temp Pulse Resp BP Pulse Ox 98.2 F 92 H 20 129/73 98 12/22/17 08:31 12/22/17 08:31 12/22/17 08:31 12/22/17 08:31 12/22/17 08:31 Intake and Output: 12/22/17 12/22/17 06:59 18:59 Intake Total Output Total Balance - Medications Medications: Current Medications Benzonatate (Tessalon Perles) 100 mg PO TID PRN PRN Reason: FOR COUGH Last Admin: 12/21/17 19:22 Dose: 100 mg Dextrose (Dextrose 50% Inj) 0 ml IVP .STAT PRN; Protocol PRN Reason: Hypoglycemia Protocol Dextrose (Glutose 15) 0 gm PO .ONCE PRN; Protocol PRN Reason: Hypoglycemia Protocol Glucagon (Glucagen Diagnostic Kit) 0 mg IM .STAT PRN; Protocol PRN Reason: Hypoglycemia Protocol Hydromorphone HCl (Dilaudid) 0.5 mg IVP Q4H PRN PRN Reason: Pain, severe (8-10) Last Admin: 12/22/17 10:40 Dose: 0.5 mg Piperacillin Sod/Tazobactam (Sod 3.375 gm/ Sodium Chloride) 100 mls @ 200 mls/ hr IVPB Q8H [facility] PRN Reason: Protocol Last Admin: 12/22/17 11:00 Dose: 200 mls/hr Insulin Detemir (Levemir) 20 unit SC HS [facility] Last Admin: 12/21/17 22:25 Dose: 20 unit Insulin Human Regular (Novolin R) 0 unit SC Q6 [facility] PRN Reason: Protocol Last Admin: 12/22/17 06:21 Dose: 10 unit Pantoprazole Sodium (Protonix Ec Tab) 40 mg PO DAILY [facility] Last Admin: 12/22/17 10:39 Dose: 40 mg Saccharomyces Boulardii (Florastor) 250 mg PO BID [facility] Last Admin: 12/22/17 10:38 Dose: 250 mg - Labs Labs: 12/22/17 07:52 12/22/17 07:52 PT 15.0 SECONDS (9.7-12.2) H 12/17/17 22:10 INR 1.3 12/17/17 22:10 APTT 27 SECONDS (21-34) 12/17/17 22:10 Attending/Attestation - Attestation I have personally seen and examined this patient.: Yes I have fully participated in the care of the patient.: Yes I have reviewed all pertinent clinical information, including history, physical exam and plan: Yes Notes (Text): 12/22/17 12:03 Medical attending: Patient was seen and examined by me. Agree with the above note by the resident We again had conversation about MRI results yesterday. And again, he declined to have amputation despite the recommendations of podiatry surgery team For tomorrow will get a PICC line as it looks like he maybe here for some time with IV abx. thank you Giuliano Taylor
[2017-12-22 07:59] LABS: BASO # 0.1 K/uL (0.0-0.2); BASO % 0.7 % (0.0-2.0); EOS # 0.4 K/uL (0.0-0.7); EOS % 5.7 % (0.0-4.0); HEMOGLOBIN 8.3 g/dL (12.0-18.0); LYMPH # 1.5 K/uL (1.0-4.3); LYMPH % 20.7 % (20.0-40.0); MEAN CELL VOLUME 93.3 fL (80.0-94.0); MEAN CORPUSCULAR HEMOGLOBIN 33.1 pg (27.0-31.0); MEAN CORPUSCULAR HGB CONC 35.5 g/dL (33.0-37.0); MEAN PLATELET VOLUME 7.1 fL (7.2-11.7); MONO # 0.8 K/uL (0.0-0.8); MONO % 11.8 % (0.0-10.0); NEUT # 4.4 K/uL (1.8-7.0); NEUT % 61.1 % (50.0-75.0); RBC 2.52 Mil/uL (4.40-5.90); RED CELL DISTRIBUTION WIDTH 13.6 % (11.5-14.5); WHITE BLOOD COUNT 7.1 K/uL (4.8-10.8)
[2017-12-22 08:33] LABS: ALB/GLOB RATIO 0.7 (1.0-2.1); ALBUMIN 2.3 g/dL (3.5-5.0); ALT/SGPT 82 U/L (21-72); AST/SGOT 45 U/L (17-59); BLOOD UREA NITROGEN 8 mg/dL (9-20); CALCIUM 8.4 mg/dl (8.6-10.4); GFR AFRICAN-AMERICAN > 60; GFR NON-AFRICAN AMERICAN > 60
[2017-12-22] MEDS: Saccharomyces Boulardi 250 mg Cap PO SCH ×2 (10:38→17:28)
[2017-12-22] MEDS: Pantoprazole 40 mg EC Tab PO SCH (10:39)
--- NOTE | 2017-12-22 12:17 | CP.PCM.PN ---
Subjective - Date & Time of Evaluation Date of Evaluation: 12/22/17 Time of Evaluation: 12:15 - Subjective Subjective: Podiatry note for Dr. Hernandez 52 year old male patient 4 days s/p LEFT foot incision and drainage was seen at bedside this morning. Patient is resting comfortably in bed with no acute distress AAOx3. Patient's is present bedside. Dressing to Left lower extremity appears clean dry and intact. Patient was advised of possible revisional surgery of Left foot incision and drainage during his stay. Patient denies of any N/V/F/C or SOB today Patient was informed about MRI result. Patient was informed of possible treatment courses including amputation of Left foot 3rd, 4th, possibly 5th digits. Patient is adamantly refusing amputation and is requesting IV abx treatment which he had in the past. Patient was educated of possible outcomes including proximal advancement of Osteomyelitis. Objective - Vital Signs/Intake and Output Vital Signs (last 24 hours): Temp Pulse Resp BP Pulse Ox 98.2 F 92 H 20 129/73 98 12/22/17 08:31 12/22/17 08:31 12/22/17 08:31 12/22/17 08:31 12/22/17 08:31 Intake and Output: 12/22/17 12/22/17 06:59 18:59 Intake Total Output Total Balance - Medications Medications: Current Medications Benzonatate (Tessalon Perles) 100 mg PO TID PRN PRN Reason: FOR COUGH Last Admin: 12/21/17 19:22 Dose: 100 mg Dextrose (Dextrose 50% Inj) 0 ml IVP .STAT PRN; Protocol PRN Reason: Hypoglycemia Protocol Dextrose (Glutose 15) 0 gm PO .ONCE PRN; Protocol PRN Reason: Hypoglycemia Protocol Glucagon (Glucagen Diagnostic Kit) 0 mg IM .STAT PRN; Protocol PRN Reason: Hypoglycemia Protocol Hydromorphone HCl (Dilaudid) 0.5 mg IVP Q4H PRN PRN Reason: Pain, severe (8-10) Last Admin: 12/22/17 10:40 Dose: 0.5 mg Piperacillin Sod/Tazobactam (Sod 3.375 gm/ Sodium Chloride) 100 mls @ 200 mls/ hr IVPB Q8H [facility] PRN Reason: Protocol Last Admin: 12/22/17 11:00 Dose: 200 mls/hr Insulin Detemir (Levemir) 20 unit SC HS [facility] Last Admin: 12/21/17 22:25 Dose: 20 unit Insulin Human Regular (Novolin R) 0 unit SC Q6 [facility] PRN Reason: Protocol Last Admin: 12/22/17 06:21 Dose: 10 unit Pantoprazole Sodium (Protonix Ec Tab) 40 mg PO DAILY [facility] Last Admin: 12/22/17 10:39 Dose: 40 mg Saccharomyces Boulardii (Florastor) 250 mg PO BID [facility] Last Admin: 12/22/17 10:38 Dose: 250 mg - Labs Labs: 12/22/17 07:52 12/22/17 07:52 PT 15.0 SECONDS (9.7-12.2) H 12/17/17 22:10 INR 1.3 12/17/17 22:10 APTT 27 SECONDS (21-34) 12/17/17 22:10 - Constitutional Appears: Well, Non-toxic, No Acute Distress - Extremities Exam Additional comments: Left lower extremity exam DERM: DORSAL: 6cm Incision to Dorsal aspect remains well coapted, sutured with an opening in the middle. 1/4 inch iodoform packing was removed today. 3mL of purulent drainage was noted from this incision site. Medial: 6cm Incision remains well coapted, sutured with an opening in the middle. 1/4 inch iodoform packing was removed today. No purulent drainage was noted from this incision site. Plantar: 6cm Incision remains well coapted, sutured with an opening in the middle. 1/4 inch iodoform packing was removed today. No purulent drainage was noted from this incision site. Lateral lecm Incision at the level of ankle joint laterally remains well coapted, sutured with an opening in the middle. 1/4 inch iodoform packing was removed today. No purulent drainage was noted from this incision site. VASC: Non-palpable DP/PT noted secondary to edema. DIETITIAN THERAPEUTIC less than 3 seconds noted to all digits NEURO: Gross sensation intact ORTHO: Pain on palpation to Left foot, Passive ROM to joints cannot be tested due to guarding - Neurological Exam Neurological Exam: Alert, Awake, Oriented x3 - Psychiatric Exam Psychiatric exam: Normal Affect, Normal Mood Assessment and Plan - Assessment and Plan (Free Text) Assessment: 52 yo male patient with chronic LEFT foot ulceration, soft tissue emphysema; 4 days s/p LEFT foot incision and drainage Plan: Patient was seen and evaluated Labs and vitals reviewed WBC 9.4, Afebrile Left foot cleansed with saline, dressed with Betadine, DSD, MILAGROS MRI : OM to LEFT foot 3rd, 4th ray, 5th digit. -Patient was informed of the MRI result with possible treatment options. Amputation of left 3rd 4th 5th rays discussed, which patient adamantly refused. -Patient was informed of possible outcome including advancement of OM, systemic infection Continue Pain medicaions Continue IV Abx Patient to be non-weight bearing to Left lower extremity Podiatry will continue to follow in house
--- NOTE | 2017-12-22 15:20 | CP.PCM.PN ---
Subjective - Date & Time of Evaluation Date of Evaluation: 12/22/17 Time of Evaluation: 07:00 - Subjective Subjective: MRI of concern for OM left foot May need CT angio/ vascular eval further debridement may be needed / osteotomy cultures reviewed - pansensitive proteus + Strep will adjust antibiotics Objective - Vital Signs/Intake and Output Vital Signs (last 24 hours): Temp Pulse Resp BP Pulse Ox 98.2 F 92 H 20 129/73 98 12/22/17 08:31 12/22/17 08:31 12/22/17 08:31 12/22/17 08:31 12/22/17 08:31 Intake and Output: 12/22/17 12/22/17 06:59 18:59 Intake Total Output Total Balance - Medications Medications: Current Medications Benzonatate (Tessalon Perles) 100 mg PO TID PRN PRN Reason: FOR COUGH Last Admin: 12/21/17 19:22 Dose: 100 mg Dextrose (Dextrose 50% Inj) 0 ml IVP .STAT PRN; Protocol PRN Reason: Hypoglycemia Protocol Dextrose (Glutose 15) 0 gm PO .ONCE PRN; Protocol PRN Reason: Hypoglycemia Protocol Glucagon (Glucagen Diagnostic Kit) 0 mg IM .STAT PRN; Protocol PRN Reason: Hypoglycemia Protocol Hydromorphone HCl (Dilaudid) 0.5 mg IVP Q4H PRN PRN Reason: Pain, severe (8-10) Last Admin: 12/22/17 10:40 Dose: 0.5 mg Piperacillin Sod/Tazobactam (Sod 3.375 gm/ Sodium Chloride) 100 mls @ 200 mls/ hr IVPB Q8H [facility] PRN Reason: Protocol Last Admin: 12/22/17 11:00 Dose: 200 mls/hr Insulin Detemir (Levemir) 20 unit SC HS [facility] Last Admin: 12/21/17 22:25 Dose: 20 unit Insulin Human Regular (Novolin R) 0 unit SC Q6 [facility] PRN Reason: Protocol Last Admin: 12/22/17 12:43 Dose: 4 unit Pantoprazole Sodium (Protonix Ec Tab) 40 mg PO DAILY [facility] Last Admin: 12/22/17 10:39 Dose: 40 mg Saccharomyces Boulardii (Florastor) 250 mg PO BID [facility] Last Admin: 12/22/17 10:38 Dose: 250 mg - Labs Labs: 12/22/17 07:52 12/22/17 07:52 PT 15.0 SECONDS (9.7-12.2) H 12/17/17 22:10 INR 1.3 12/17/17 22:10 APTT 27 SECONDS (21-34) 12/17/17 22:10 - Constitutional Appears: Non-toxic, Chronically Ill - Head Exam Head Exam: NORMOCEPHALIC - Eye Exam Eye Exam: PERRL - ENT Exam ENT Exam: Mucous Membranes Dry - Neck Exam Neck Exam: absent: Lymphadenopathy - Respiratory Exam Respiratory Exam: Decreased Breath Sounds - Cardiovascular Exam Cardiovascular Exam: REGULAR RHYTHM - GI/Abdominal Exam GI & Abdominal Exam: Distended, Soft - Rectal Exam Rectal Exam: Deferred - Exam Exam: NORMAL INSPECTION - Extremities Exam Extremities Exam: Pedal Edema - Back Exam Back Exam: absent: CVA tenderness (L), CVA tenderness (R) - Neurological Exam Neurological Exam: Alert, Awake, CN II-XII Intact Assessment and Plan (1) Diabetic foot ulcers Status: Acute (2) Alcohol abuse Status: Acute (3) Osteomyelitis Status: Acute (4) Osteomyelitis Status: Acute - Assessment and Plan (Free Text) Assessment: MRI of concern for OM left foot May need CT angio/ vascular eval further debridement may be needed / osteotomy cultures reviewed - pansensitive proteus + Strep will adjust antibiotics
[2017-12-22] MEDS: Insulin Detemir 100 units/ml Vial (Levemir) SC SCH (21:43)
[2017-12-23] MEDS: (Novolin R) Insulin Human Regular 100 units/ml vial SC SCH ×4 (00:20→18:26)
[2017-12-23] MEDS: Piperacillin/Tazobact 3.375 GM in Sodium Chloride 100 ML IVPB SCH ×3 (03:06→20:00)
[2017-12-23] MEDS: HYDROmorphone 0.5 mg/0.5 ml ISec IVP PRN ×5 (03:34→22:30)
[2017-12-23 07:28] LABS: BASO # 0.1 K/uL (0.0-0.2); BASO % 0.9 % (0.0-2.0); EOS # 0.3 K/uL (0.0-0.7); EOS % 4.8 % (0.0-4.0); LYMPH # 1.6 K/uL (1.0-4.3); LYMPH % 22.7 % (20.0-40.0); MEAN CELL VOLUME 93.7 fL (80.0-94.0); MEAN CORPUSCULAR HEMOGLOBIN 32.6 pg (27.0-31.0); MEAN CORPUSCULAR HGB CONC 34.8 g/dL (33.0-37.0); MEAN PLATELET VOLUME 7.1 fL (7.2-11.7); MONO # 0.7 K/uL (0.0-0.8); MONO % 10.5 % (0.0-10.0); NEUT # 4.2 K/uL (1.8-7.0); NEUT % 61.1 % (50.0-75.0); RBC 2.75 Mil/uL (4.40-5.90); RED CELL DISTRIBUTION WIDTH 13.9 % (11.5-14.5); WHITE BLOOD COUNT 6.9 K/uL (4.8-10.8)
[2017-12-23 07:44] LABS: ALB/GLOB RATIO 0.7 (1.0-2.1); ALBUMIN 2.6 g/dL (3.5-5.0); ALT/SGPT 81 U/L (21-72); AST/SGOT 78 U/L (17-59); BLOOD UREA NITROGEN 7 mg/dL (9-20); CALCIUM 8.9 mg/dl (8.6-10.4); GFR AFRICAN-AMERICAN > 60; GFR NON-AFRICAN AMERICAN > 60
--- NOTE | 2017-12-23 09:13 | CP.PCM.PN ---
<Lacy Teague - Last Filed: 12/23/17 13:07> Subjective - Date & Time of Evaluation Date of Evaluation: 12/23/17 Time of Evaluation: 09:09 - Subjective Subjective: Progress note for Dr. Hunt Patient seen and examined at bedside. Patient received PICC line placement today. Patient denies left foot pain on light ambulation. Patient states the swelling is less today and states he's tolerating pain well. Patient denies fever, chills, nausea, vomiting. Objective - Vital Signs/Intake and Output Vital Signs (last 24 hours): Temp Pulse Resp BP Pulse Ox 99.0 F 91 H 20 147/83 97 12/23/17 08:00 12/23/17 08:00 12/23/17 08:00 12/23/17 08:00 12/23/17 08:00 Intake and Output: 12/23/17 12/23/17 06:59 18:59 Intake Total 550 Output Total 300 Balance 250 - Medications Medications: Current Medications Benzonatate (Tessalon Perles) 100 mg PO TID PRN PRN Reason: FOR COUGH Last Admin: 12/21/17 19:22 Dose: 100 mg Dextrose (Dextrose 50% Inj) 0 ml IVP .STAT PRN; Protocol PRN Reason: Hypoglycemia Protocol Dextrose (Glutose 15) 0 gm PO .ONCE PRN; Protocol PRN Reason: Hypoglycemia Protocol Glucagon (Glucagen Diagnostic Kit) 0 mg IM .STAT PRN; Protocol PRN Reason: Hypoglycemia Protocol Hydromorphone HCl (Dilaudid) 0.5 mg IVP Q4H PRN PRN Reason: Pain, severe (8-10) Last Admin: 12/23/17 03:34 Dose: 0.5 mg Piperacillin Sod/Tazobactam (Sod 3.375 gm/ Sodium Chloride) 100 mls @ 200 mls/ hr IVPB Q8H [facility] PRN Reason: Protocol Last Admin: 12/23/17 03:06 Dose: 200 mls/hr Insulin Detemir (Levemir) 20 unit SC HS [facility] Last Admin: 12/22/17 21:43 Dose: 20 unit Insulin Human Regular (Novolin R) 0 unit SC Q6 [facility] PRN Reason: Protocol Last Admin: 12/23/17 06:10 Dose: 4 unit Pantoprazole Sodium (Protonix Ec Tab) 40 mg PO DAILY [facility] Last Admin: 12/22/17 10:39 Dose: 40 mg Saccharomyces Montserratdii (Florastor) 250 mg PO BID [facility] Last Admin: 12/22/17 17:28 Dose: 250 mg - Labs Labs: 12/23/17 06:54 12/23/17 06:54 PT 15.0 SECONDS (9.7-12.2) H 12/17/17 22:10 INR 1.3 12/17/17 22:10 APTT 27 SECONDS (21-34) 12/17/17 22:10 - Constitutional Appears: Non-toxic, No Acute Distress - Head Exam Head Exam: ATRAUMATIC, NORMAL INSPECTION, NORMOCEPHALIC - Eye Exam Eye Exam: EOMI, Normal appearance Pupil Exam: NORMAL ACCOMODATION, PERRL - ENT Exam ENT Exam: Mucous Membranes Moist - Neck Exam Neck Exam: Full ROM. absent: Tenderness - Respiratory Exam Respiratory Exam: Clear to Ausculation Bilateral, NORMAL BREATHING PATTERN. absent: Accessory Muscle Use, Chest Wall Tenderness - Cardiovascular Exam Cardiovascular Exam: REGULAR RHYTHM, +S1, +S2. absent: Bradycardia, Tachycardia - GI/Abdominal Exam GI & Abdominal Exam: Soft, Normal Bowel Sounds. absent: Tenderness - Extremities Exam Extremities Exam: Normal Inspection. absent: Pedal Edema Additional comments: left foot wrapped. Legs warm to touch bilaterally. no areas of erythema, edema. - Back Exam Back Exam: Full ROM, NORMAL INSPECTION - Neurological Exam Neurological Exam: Alert, Awake, CN II-XII Intact, Normal Gait, Oriented x3 - Psychiatric Exam Psychiatric exam: Normal Affect, Normal Mood - Skin Skin Exam: Dry, Intact, Normal Color, Warm Assessment and Plan - Assessment and Plan (Free Text) Assessment: 52M with past medical history of DM, HTN, and history of left foot ulceration treated in 04/2017. (1) Diabetic foot ulcers Assessment & Plan: Podiatry: Dr. Hernandez * S/p bedside incision and drainage 12/18/17 * S/p left foot incision and drainage for left foot soft tissue emphysema POD #3 * wound care and pain management as per podiatry team (+) Leukocytosis, stable * Infectious Disease consult: Dr Brooks * Blood culture negative at 3 days x2 * Left foot wound culture:Proteus Mirabilis and [employer] G Strep Imaging: X-ray left foot - gas emphysema noted dorsum and plantar aspect of mid-foot Left foot X-rays s/p bedside I&D (12/18/17): Postsurgical changes with subcutaneous emphysema seen. Focal osteopenia in the 4th and 5th metatarsal heads may reflect underlying osteomyelitis. Left foot X-rays left tib-fib (12/18/17): Subcutaneous emphysema is seen tracking along the lateral lower extremity. Left foot X-ray (12/17/17): Extensive left forefoot subcutaneous gas and poor visualization of the 4th metatarsal head is likely related to osteomyelitis and soft tissue abscess. MRI to assess for osteomyelitis - Findings consistent with osteomyelitis involving the distal portion and the head of the 4th metatarsal and also involving the proximal phalanx of the 4th toe. * Suspicious for septic arthritis of the 4th metatarsophalangeal joint. * Bone marrow edema and questionable small erosion noted at the head of the 3rd metatarsal bone may represent an early osteomyelitis. * Mild bone marrow edema noted at the proximal phalanx of the 3rd and 5th toe likely represent reactive changes due to hyperemia. * Diffuse soft tissue infection/inflammatory process at the lateral distal portion of the left foot associated with foci of air in the subcutaneous and deep soft tissue. The possibility of small abscess formation cannot be totally excluded in this noncontrast enhanced study. * Soft tissue edema and diffuse myositis at the mid and distal portion of the left foot. * As per podiatry note (12/20/17): Patient was informed of the MRI result with possible treatment options. Amputation of left 3rd 4th 5th rays discussed, which patient adamantly refused. -Patient was informed of possible outcome including advancement of OM, systemic infection PICC line placement 12/23 Dr. Brooks: Patient suggested to have CTA and vascular eval f/u bilateral venous doppler Medication/Management: Dilaudid 0.5mg IVP Q4H PRN for pain control Meropenem 500mg IV Q6H (Started 12/18/17) Vancomycin 1g IV Q12H (Started 12/18/17) Florastor 250mg PO BID PT/OT treatment and evaluation Status: Acute (2) Uncontrolled diabetes mellitus Assessment & Plan: HbgA1C (12/18/17): 12.3 Accuchecks ISS- High dose Levemir 20 units HS Hypoglycemia protocol Status: Acute (3) HTN (hypertension) Assessment & Plan: BP well controlled Continue home med Lisinopril 10mg PO QD (renal protective as well) Status: Chronic (4) Prophylactic measure Assessment & Plan: I: Protonix 40mg PO QD DVT: SCD and anticoagulation contraindicated due to s/p left foot incision and drainage for left foot soft tissue emphysema POD #5 (12/18/17), to restart as per podiatry's recommendation. Patient is ambulating with physical therapy. Heart healthy, diabetic diet Status: Acute Lacy Eng, DO PGY1 <Janeth Hunt - Last Filed: 12/23/17 18:51> Objective - Vital Signs/Intake and Output Vital Signs (last 24 hours): Temp Pulse Resp BP Pulse Ox 98.6 F 87 20 127/77 95 12/23/17 16:00 12/23/17 16:00 12/23/17 16:00 12/23/17 16:00 12/23/17 16:00 Intake and Output: 12/23/17 12/23/17 06:59 18:59 Intake Total 550 550 Output Total 300 Balance 250 550 - Medications Medications: Current Medications Benzonatate (Tessalon Perles) 100 mg PO TID PRN PRN Reason: FOR COUGH Last Admin: 12/21/17 19:22 Dose: 100 mg Dextrose (Dextrose 50% Inj) 0 ml IVP .STAT PRN; Protocol PRN Reason: Hypoglycemia Protocol Dextrose (Glutose 15) 0 gm PO .ONCE PRN; Protocol PRN Reason: Hypoglycemia Protocol Glucagon (Glucagen Diagnostic Kit) 0 mg IM .STAT PRN; Protocol PRN Reason: Hypoglycemia Protocol Hydromorphone HCl (Dilaudid) 0.5 mg IVP Q4H PRN PRN Reason: Pain, severe (8-10) Last Admin: 12/23/17 18:32 Dose: 0.5 mg Piperacillin Sod/Tazobactam (Sod 3.375 gm/ Sodium Chloride) 100 mls @ 200 mls/ hr IVPB Q8H [facility] PRN Reason: Protocol Last Admin: 12/23/17 14:15 Dose: 200 mls/hr Insulin Aspart (Novolog) 4 unit SC ACBL [facility] Insulin Detemir (Levemir) 20 unit SC HS [facility] Last Admin: 12/22/17 21:43 Dose: 20 unit Insulin Human Regular (Novolin R) 0 unit SC Q6 [facility] PRN Reason: Protocol Last Admin: 12/23/17 18:26 Dose: 6 unit Pantoprazole Sodium (Protonix Ec Tab) 40 mg PO DAILY [facility] Last Admin: 12/23/17 09:34 Dose: 40 mg Saccharomyces Boulardii (Florastor) 250 mg PO BID [facility] Last Admin: 12/23/17 18:24 Dose: 250 mg - Labs Labs: 12/23/17 06:54 12/23/17 06:54 PT 15.0 SECONDS (9.7-12.2) H 12/17/17 22:10 INR 1.3 12/17/17 22:10 APTT 27 SECONDS (21-34) 12/17/17 22:10 Attending/Attestation - Attestation I have personally seen and examined this patient.: Yes I have fully participated in the care of the patient.: Yes I have reviewed all pertinent clinical information, including history, physical exam and plan: Yes Notes (Text): Patient was seen and examined Discussed about sugar control. patient was noncompliance with medication at home. s/p picc line. continue [email or web address] with Dr Brooks,SHARLENE and podiatry about d/c plan I agree with the residents documentation of the assessment and the plan.
[2017-12-23] MEDS: Pantoprazole 40 mg EC Tab PO SCH (09:34)
[2017-12-23] MEDS: Saccharomyces Boulardi 250 mg Cap PO SCH ×2 (09:35→18:24)
--- NOTE | 2017-12-23 11:54 | CP.PCM.PN ---
Subjective - Date & Time of Evaluation Date of Evaluation: 12/23/17 Time of Evaluation: 09:00 - Subjective Subjective: t max 99' IV Zosyn to cont Objective - Vital Signs/Intake and Output Vital Signs (last 24 hours): Temp Pulse Resp BP Pulse Ox 99.0 F 91 H 20 147/83 97 12/23/17 08:00 12/23/17 08:00 12/23/17 08:00 12/23/17 08:00 12/23/17 08:00 Intake and Output: 12/23/17 12/23/17 06:59 18:59 Intake Total 550 Output Total 300 Balance 250 - Medications Medications: Current Medications Benzonatate (Tessalon Perles) 100 mg PO TID PRN PRN Reason: FOR COUGH Last Admin: 12/21/17 19:22 Dose: 100 mg Dextrose (Dextrose 50% Inj) 0 ml IVP .STAT PRN; Protocol PRN Reason: Hypoglycemia Protocol Dextrose (Glutose 15) 0 gm PO .ONCE PRN; Protocol PRN Reason: Hypoglycemia Protocol Glucagon (Glucagen Diagnostic Kit) 0 mg IM .STAT PRN; Protocol PRN Reason: Hypoglycemia Protocol Hydromorphone HCl (Dilaudid) 0.5 mg IVP Q4H PRN PRN Reason: Pain, severe (8-10) Last Admin: 12/23/17 09:10 Dose: 0.5 mg Piperacillin Sod/Tazobactam (Sod 3.375 gm/ Sodium Chloride) 100 mls @ 200 mls/ hr IVPB Q8H [facility] PRN Reason: Protocol Last Admin: 12/23/17 03:06 Dose: 200 mls/hr Insulin Detemir (Levemir) 20 unit SC HS [facility] Last Admin: 12/22/17 21:43 Dose: 20 unit Insulin Human Regular (Novolin R) 0 unit SC Q6 [facility] PRN Reason: Protocol Last Admin: 12/23/17 06:10 Dose: 4 unit Pantoprazole Sodium (Protonix Ec Tab) 40 mg PO DAILY [facility] Last Admin: 12/23/17 09:34 Dose: 40 mg Saccharomyces Boulardii (Florastor) 250 mg PO BID [facility] Last Admin: 12/23/17 09:35 Dose: 250 mg - Labs Labs: 12/23/17 06:54 12/23/17 06:54 PT 15.0 SECONDS (9.7-12.2) H 12/17/17 22:10 INR 1.3 12/17/17 22:10 APTT 27 SECONDS (21-34) 12/17/17 22:10 - Constitutional Appears: Non-toxic, Chronically Ill - Head Exam Head Exam: NORMOCEPHALIC - Eye Exam Eye Exam: absent: Scleral icterus - ENT Exam ENT Exam: Mucous Membranes Dry - Neck Exam Neck Exam: absent: Lymphadenopathy - Respiratory Exam Respiratory Exam: Decreased Breath Sounds - Cardiovascular Exam Cardiovascular Exam: REGULAR RHYTHM - GI/Abdominal Exam GI & Abdominal Exam: Distended, Soft Assessment and Plan (1) Diabetic foot ulcers Status: Acute (2) Alcohol abuse Status: Acute (3) Osteomyelitis Status: Acute (4) Osteomyelitis Status: Acute - Assessment and Plan (Free Text) Assessment: cont rx for om
--- NOTE | 2017-12-23 13:03 | RAD ---
HISTORY: verify right PICC COMPARISON: Chest x-ray performed 12/17/17 TECHNIQUE: Chest, one view. FINDINGS: Examination limited by habitus. Right-sided PICC extends expected location of the cavoatrial junction. LUNGS: No focal consolidation. Please note that chest x-ray has limited sensitivity for the detection of pulmonary masses. PLEURA: No significant pleural effusion identified. No definite pneumothorax . CARDIOVASCULAR: Heart size appears within normal limits. OSSEOUS STRUCTURES: Degenerative changes. VISUALIZED UPPER ABDOMEN: Unremarkable. OTHER FINDINGS: None. IMPRESSION: Right-sided PICC extends to the expected location of the cavoatrial junction.
--- NOTE | 2017-12-23 20:14 | CP.PCM.PN ---
Subjective - Date & Time of Evaluation Date of Evaluation: 12/23/17 Time of Evaluation: 13:00 - Subjective Subjective: Podiatry note for Dr. Hernandez 52 year old male patient 5 days s/p LEFT foot incision and drainage was seen at bedside this morning. Patient is resting comfortably in bed with no acute distress AAOx3. Dressing to Left lower extremity appears clean dry and intact. Patient was informed of current purulent drainage even after the initial Incision and drainage, and was advised of possible revisional surgery of Left foot incision and drainage Saturday12/27/17 if there is no improvement. Patient agrees with podiatry plan. Patient denies of any N/V/F/C or SOB today. Objective - Vital Signs/Intake and Output Vital Signs (last 24 hours): Temp Pulse Resp BP Pulse Ox 98.6 F 87 20 127/77 95 12/23/17 16:00 12/23/17 16:00 12/23/17 16:00 12/23/17 16:00 12/23/17 16:00 Intake and Output: 12/23/17 12/24/17 18:59 06:59 Intake Total 550 Balance 550 - Medications Medications: Current Medications Benzonatate (Tessalon Perles) 100 mg PO TID PRN PRN Reason: FOR COUGH Last Admin: 12/21/17 19:22 Dose: 100 mg Dextrose (Dextrose 50% Inj) 0 ml IVP .STAT PRN; Protocol PRN Reason: Hypoglycemia Protocol Dextrose (Glutose 15) 0 gm PO .ONCE PRN; Protocol PRN Reason: Hypoglycemia Protocol Glucagon (Glucagen Diagnostic Kit) 0 mg IM .STAT PRN; Protocol PRN Reason: Hypoglycemia Protocol Hydromorphone HCl (Dilaudid) 0.5 mg IVP Q4H PRN PRN Reason: Pain, severe (8-10) Last Admin: 12/23/17 18:32 Dose: 0.5 mg Piperacillin Sod/Tazobactam (Sod 3.375 gm/ Sodium Chloride) 100 mls @ 200 mls/ hr IVPB Q8H [facility] PRN Reason: Protocol Last Admin: 12/23/17 14:15 Dose: 200 mls/hr Insulin Aspart (Novolog) 4 unit SC ACBL [facility] Insulin Detemir (Levemir) 20 unit SC HS [facility] Last Admin: 12/22/17 21:43 Dose: 20 unit Insulin Human Regular (Novolin R) 0 unit SC Q6 [facility] PRN Reason: Protocol Last Admin: 12/23/17 18:26 Dose: 6 unit Pantoprazole Sodium (Protonix Ec Tab) 40 mg PO DAILY [facility] Last Admin: 12/23/17 09:34 Dose: 40 mg Saccharomyces Boulardii (Florastor) 250 mg PO BID [facility] Last Admin: 12/23/17 18:24 Dose: 250 mg - Labs Labs: 12/23/17 06:54 12/23/17 06:54 PT 15.0 SECONDS (9.7-12.2) H 12/17/17 22:10 INR 1.3 12/17/17 22:10 APTT 27 SECONDS (21-34) 12/17/17 22:10 - Constitutional Appears: Well, Non-toxic, No Acute Distress - Head Exam Head Exam: ATRAUMATIC - Extremities Exam Additional comments: Left lower extremity exam DERM: DORSAL: 6cm Incision to Dorsal aspect remains well coapted, sutured with an opening in the middle. 1/4 inch iodoform packing was removed today. 3mL of purulent drainage was noted from this incision site. Medial: 6cm Incision remains well coapted, sutured with an opening in the middle. 1/4 inch iodoform packing was removed today. No purulent drainage was noted from this incision site. Plantar: 6cm Incision remains well coapted, sutured with an opening in the middle. 1/4 inch iodoform packing was removed today. No purulent drainage was noted from this incision site. Lateral lecm Incision at the level of ankle joint laterally remains well coapted, sutured with an opening in the middle. 1/4 inch iodoform packing was removed today. No purulent drainage was noted from this incision site. VASC: Non-palpable DP/PT noted secondary to edema. 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 noted to all digits NEURO: Gross sensation intact ORTHO: Pain on palpation to Left foot, Passive ROM to joints cannot be tested due to guarding - Neurological Exam Neurological Exam: Alert, Awake, Oriented x3 - Psychiatric Exam Psychiatric exam: Normal Affect, Normal Mood Assessment and Plan - Assessment and Plan (Free Text) Assessment: 52 yo male patient with chronic LEFT foot ulceration, soft tissue emphysema; 5 days s/p LEFT foot incision and drainag Plan: Patient was seen and evaluated Labs and vitals reviewed WBC 6.9, Afebrile Left foot cleansed with saline, dressed with Betadine, DSD, MILAGROS MRI : OM to LEFT foot 3rd, 4th ray, 5th digit. -Patient was informed of the MRI result with possible treatment options. Amputation of left 3rd 4th 5th rays discussed, which patient adamantly refused. -Patient was informed of possible outcome including advancement of OM, systemic infection Continue Pain medicaions Continue IV Abx Patient to be non-weight bearing to Left lower extremity Podiatry will continue to follow in house Podiatry plan for Incision and drainage, debridement of non-viable tissue Saturday12/27/[address] Hernandez
[2017-12-23] MEDS: Insulin Detemir 100 units/ml Vial (Levemir) SC SCH (22:13)
[2017-12-24] MEDS: (Novolin R) Insulin Human Regular 100 units/ml vial SC SCH ×4 (00:07→18:00)
[2017-12-24] MEDS: Piperacillin/Tazobact 3.375 GM in Sodium Chloride 100 ML IVPB SCH ×3 (03:54→20:00)
[2017-12-24] MEDS: HYDROmorphone 0.5 mg/0.5 ml ISec IVP PRN ×4 (04:36→21:55)
[2017-12-24] MEDS: (Novolog) Insulin Aspart, Recombinant 100 u/ml 10 ml vial SC SCH ×3 (07:54→12:26)
[2017-12-24 08:08] LABS: BASO # 0.1 K/uL (0.0-0.2); BASO % 0.9 % (0.0-2.0); EOS # 0.4 K/uL (0.0-0.7); EOS % 4.6 % (0.0-4.0); HEMOGLOBIN 8.6 g/dL (12.0-18.0); LYMPH # 1.7 K/uL (1.0-4.3); LYMPH % 20.4 % (20.0-40.0); MEAN CORPUSCULAR HEMOGLOBIN 32.8 pg (27.0-31.0); MEAN CORPUSCULAR HGB CONC 34.6 g/dL (33.0-37.0); MEAN PLATELET VOLUME 7.4 fL (7.2-11.7); MONO # 0.9 K/uL (0.0-0.8); NEUT # 5.4 K/uL (1.8-7.0); NEUT % 64.1 % (50.0-75.0); RBC 2.61 Mil/uL (4.40-5.90); RED CELL DISTRIBUTION WIDTH 13.9 % (11.5-14.5); WHITE BLOOD COUNT 8.5 K/uL (4.8-10.8)
[2017-12-24 08:21] LABS: ALB/GLOB RATIO 0.7 (1.0-2.1); ALBUMIN 2.6 g/dL (3.5-5.0); ALT/SGPT 80 U/L (21-72); AST/SGOT 56 U/L (17-59); BLOOD UREA NITROGEN 9 mg/dL (9-20); CALCIUM 8.8 mg/dl (8.6-10.4); GFR AFRICAN-AMERICAN > 60; GFR NON-AFRICAN AMERICAN > 60
[2017-12-24] MEDS: Pantoprazole 40 mg EC Tab PO SCH (09:44)
[2017-12-24] MEDS: Saccharomyces Boulardi 250 mg Cap PO SCH ×2 (09:44→17:37)
--- NOTE | 2017-12-24 11:13 | CP.PCM.PN ---
Subjective - Date & Time of Evaluation Date of Evaluation: 12/24/17 Time of Evaluation: 10:30 - Subjective Subjective: Podiatry note for Dr. Hernandez 52 year old male patient 6 days s/p LEFT foot incision and drainage was seen at bedside this morning. Patient is resting comfortably in bed with no acute distress AAOx3. Dressing to Left lower extremity appears clean dry and intact. Patient denies of any N/V/F/C or SOB today. Spoke with physical therapy who advised that the patient is not compliant with podiatry instruction of staying non-weight bearing. Advised pt to follow instructions. Patient scheduled for Left foot incision and drainage Saturday12/27/17 Objective - Vital Signs/Intake and Output Vital Signs (last 24 hours): Temp Pulse Resp BP Pulse Ox 98.3 F 93 H 20 118/81 95 12/24/17 08:30 12/24/17 09:58 12/24/17 08:30 12/24/17 09:58 12/24/17 09:58 Intake and Output: 12/24/17 12/24/17 06:59 18:59 Intake Total 440 Output Total 650 Balance -210 - Medications Medications: Current Medications Benzonatate (Tessalon Perles) 100 mg PO TID PRN PRN Reason: FOR COUGH Last Admin: 12/21/17 19:22 Dose: 100 mg Dextrose (Dextrose 50% Inj) 0 ml IVP .STAT PRN; Protocol PRN Reason: Hypoglycemia Protocol Dextrose (Glutose 15) 0 gm PO .ONCE PRN; Protocol PRN Reason: Hypoglycemia Protocol Glucagon (Glucagen Diagnostic Kit) 0 mg IM .STAT PRN; Protocol PRN Reason: Hypoglycemia Protocol Hydromorphone HCl (Dilaudid) 0.5 mg IVP Q4H PRN PRN Reason: Pain, severe (8-10) Last Admin: 12/24/17 09:45 Dose: 0.5 mg Piperacillin Sod/Tazobactam (Sod 3.375 gm/ Sodium Chloride) 100 mls @ 200 mls/ hr IVPB Q8H [facility] PRN Reason: Protocol Last Admin: 12/24/17 03:54 Dose: 200 mls/hr Insulin Aspart (Novolog) 4 unit SC ACBL [facility] Last Admin: 12/24/17 07:54 Dose: 4 unit Insulin Detemir (Levemir) 20 unit SC HS [facility] Last Admin: 12/23/17 22:13 Dose: 20 unit Insulin Human Regular (Novolin R) 0 unit SC Q6 [facility] PRN Reason: Protocol Last Admin: 12/24/17 06:49 Dose: Not Given Pantoprazole Sodium (Protonix Ec Tab) 40 mg PO DAILY [facility] Last Admin: 12/24/17 09:44 Dose: 40 mg Saccharomyces Boulardii (Florastor) 250 mg PO BID [facility] Last Admin: 12/24/17 09:44 Dose: 250 mg - Labs Labs: 12/24/17 07:46 12/24/17 07:46 PT 15.0 SECONDS (9.7-12.2) H 12/17/17 22:10 INR 1.3 12/17/17 22:10 APTT 27 SECONDS (21-34) 12/17/17 22:10 - Constitutional Appears: Well, Non-toxic, No Acute Distress - Head Exam Head Exam: ATRAUMATIC - Extremities Exam Additional comments: Left lower extremity exam DERM: DORSAL: 6cm Incision to Dorsal aspect remains well coapted, sutured with an opening in the middle. 1/4 inch iodoform packing was removed today. 2mL of purulent drainage was noted from this incision site. Medial: 6cm Incision remains well coapted, sutured with an opening in the middle. 1/4 inch iodoform packing was removed today. No purulent drainage was noted from this incision site. Plantar: 6cm Incision remains well coapted, sutured with an opening in the middle. 1/4 inch iodoform packing was removed today. No purulent drainage was noted from this incision site. Lateral lecm Incision at the level of ankle joint laterally remains well coapted, sutured with an opening in the middle. 1/4 inch iodoform packing was removed today. No purulent drainage was noted from this incision site. VASC: Non-palpable DP/PT noted secondary to edema. SNAKER less than 3 seconds noted to all digits NEURO: Gross sensation intact ORTHO: Pain on palpation to Left foot, Passive ROM to joints cannot be tested due to guarding - Neurological Exam Neurological Exam: Alert, Awake, Oriented x3 - Psychiatric Exam Psychiatric exam: Normal Affect, Normal Mood Assessment and Plan - Assessment and Plan (Free Text) Assessment: 52 yo male patient with chronic LEFT foot ulceration, soft tissue emphysema; 6 days s/p LEFT foot incision and drainag Plan: Patient was seen and evaluated Labs and vitals reviewed WBC 8.5, Afebrile Left foot cleansed with saline, dressed with Betadine, DSD, MILAGROS Continue Pain medicaions Continue IV Abx Patient to be non-weight bearing to Left lower extremity Podiatry will continue to follow in house Patient scheduled for Incision and drainage, debridement of non-viable tissue Saturday12/27/[address] Hernandez
--- NOTE | 2017-12-24 11:35 | VASCLAB ---
STUDY DESCRIPTION: HISTORY: Arterial ulcer, Diabetic. PRIORS: 07/09/2014, normal. TECHNIQUE: Pulse volume recording waveforms and segmental pressures of bilateral lower extremities at multiple levels were obtained. Ankle Brachial Indices (ABIs) were calculated. Report prepared by Perez Jones, YOEL, RVT RIGHT LOWER EXTREMITY: * Brachial artery: Unable to obtain due to IV line. * High thigh: Pressure - 220 mmHg: Ratio - : PVR waveform - Pulsatile * Low thigh: Pressure - 220 mmHg: Ratio - PVR waveform: Pulsatile * Calf: Pressure - 220 mmHg: Ratio - PVR waveform: Pulsatile * Posterior tibial Artery: Pressure - 200 mmHg: Ratio - PVR waveform: Pulsatile * Dorsalis pedis Artery: Pressure - 220 mmHg: Ratio - PVR waveform: Pulsatile * Great toe: Pressure - 133 mmHg: Ratio - 0.99 PVR waveform: Pulsatile Ankle brachial index (JASPER): n/c LEFT LOWER EXTREMITY: * Brachial artery: Pressure - 135 mmHg. * High thigh: Pressure - 220 mmHg: Ratio - : PVR waveform - Pulsatile * Low thigh: Pressure - 197 mmHg: Ratio - 1.46 PVR waveform: Pulsatile * Calf: Pressure - 220 mmHg: Ratio - PVR waveform: Pulsatile * Posterior tibial Artery: Pressure - 220 mmHg: Ratio - PVR waveform: Pulsatile * Dorsalis pedis Artery: Pressure - 220 mmHg: Ratio - PVR waveform: Pulsatile * Great toe: Pressure - 110 mmHg: Ratio - 0.81 PVR waveform: Pulsatile Ankle brachial index (JASPER): n/c OTHER FINDINGS: IMPRESSION: Right: Ankle brachial indexes are non diagnostic, due to possible arterial wall calcification. However, based on the arterial (PVR) waveforms, there is normal arterial perfusion to bilateral lower extremities, at rest. Normal toe brachial indexes. Left: Ankle brachial indexes are non diagnostic, due to possible arterial wall calcification. However, based on the arterial (PVR) waveforms, there is normal arterial perfusion to bilateral lower extremities, at rest. Normal toe brachial indexes. Recommend CT angiogram.
--- NOTE | 2017-12-24 11:53 | CP.PCM.PN ---
<Lacy Teague - Last Filed: 12/24/17 13:19> Subjective - Date & Time of Evaluation Date of Evaluation: 12/24/17 Time of Evaluation: 11:53 - Subjective Subjective: Progress Note for Dr. Hunt Patient seen and examined at bedside. Patient denies fever, chills, nausea, vomiting, leg pain. Patient states he did not have a chance to eat dinner last night. Patient's glucose levels continue to remain elevated. Medications were adjusted and patient was made aware. Patient is aware that he will go for debridement and I&D on Saturday. Objective - Vital Signs/Intake and Output Vital Signs (last 24 hours): Temp Pulse Resp BP Pulse Ox 98.3 F 93 H 20 118/81 95 12/24/17 08:30 12/24/17 09:58 12/24/17 08:30 12/24/17 09:58 12/24/17 09:58 Intake and Output: 12/24/17 12/24/17 06:59 18:59 Intake Total 440 Output Total 650 Balance -210 - Medications Medications: Current Medications Benzonatate (Tessalon Perles) 100 mg PO TID PRN PRN Reason: FOR COUGH Last Admin: 12/21/17 19:22 Dose: 100 mg Dextrose (Dextrose 50% Inj) 0 ml IVP .STAT PRN; Protocol PRN Reason: Hypoglycemia Protocol Dextrose (Glutose 15) 0 gm PO .ONCE PRN; Protocol PRN Reason: Hypoglycemia Protocol Glucagon (Glucagen Diagnostic Kit) 0 mg IM .STAT PRN; Protocol PRN Reason: Hypoglycemia Protocol Hydromorphone HCl (Dilaudid) 0.5 mg IVP Q4H PRN PRN Reason: Pain, severe (8-10) Last Admin: 12/24/17 09:45 Dose: 0.5 mg Piperacillin Sod/Tazobactam (Sod 3.375 gm/ Sodium Chloride) 100 mls @ 200 mls/ hr IVPB Q8H [facility] PRN Reason: Protocol Last Admin: 12/24/17 03:54 Dose: 200 mls/hr Insulin Aspart (Novolog) 4 unit SC ACBL [facility] Last Admin: 12/24/17 11:40 Dose: 4 unit Insulin Detemir (Levemir) 20 unit SC HS [facility] Last Admin: 12/23/17 22:13 Dose: 20 unit Insulin Human Regular (Novolin R) 0 unit SC Q6 [facility] PRN Reason: Protocol Last Admin: 12/24/17 06:49 Dose: Not Given Pantoprazole Sodium (Protonix Ec Tab) 40 mg PO DAILY [facility] Last Admin: 12/24/17 09:44 Dose: 40 mg Saccharomyces Boulardii (Florastor) 250 mg PO BID [facility] Last Admin: 12/24/17 09:44 Dose: 250 mg - Labs Labs: 12/24/17 07:46 12/24/17 07:46 PT 15.0 SECONDS (9.7-12.2) H 12/17/17 22:10 INR 1.3 12/17/17 22:10 APTT 27 SECONDS (21-34) 12/17/17 22:10 - Constitutional Appears: Non-toxic, No Acute Distress - Head Exam Head Exam: ATRAUMATIC, NORMAL INSPECTION, NORMOCEPHALIC - Eye Exam Eye Exam: EOMI, Normal appearance Pupil Exam: NORMAL ACCOMODATION, PERRL - ENT Exam ENT Exam: Mucous Membranes Moist, Normal Exam - Neck Exam Neck Exam: Full ROM, Normal Inspection - Respiratory Exam Respiratory Exam: Clear to Ausculation Bilateral, NORMAL BREATHING PATTERN. absent: Accessory Muscle Use - Cardiovascular Exam Cardiovascular Exam: REGULAR RHYTHM, +S1, +S2. absent: Irregular Rhythm - GI/Abdominal Exam GI & Abdominal Exam: Soft. absent: Tenderness - Extremities Exam Extremities Exam: Full ROM. absent: Pedal Edema Additional comments: left foot wrapped in dressings. c/d/i - Back Exam Back Exam: Full ROM, NORMAL INSPECTION - Neurological Exam Neurological Exam: Alert, Awake, CN II-XII Intact, Oriented x3 Assessment and Plan - Assessment and Plan (Free Text) Assessment: 52M with past medical history of DM, HTN, and history of left foot ulceration treated in 04/2017. (1) Diabetic foot ulcers Assessment & Plan: Podiatry: Dr. Hernandez * S/p bedside incision and drainage 12/18/17 * S/p left foot incision and drainage for left foot soft tissue emphysema POD 12/18/17 * wound care and pain management as per podiatry team (+) Leukocytosis, stable * Infectious Disease consult: Dr Brooks * Blood culture negative at 3 days x2 * Left foot wound culture:Proteus Mirabilis and [employer] G Strep Imaging: X-ray left foot - gas emphysema noted dorsum and plantar aspect of mid-foot Left foot X-rays s/p bedside I&D (12/18/17): Postsurgical changes with subcutaneous emphysema seen. Focal osteopenia in the 4th and 5th metatarsal heads may reflect underlying osteomyelitis. Left foot X-rays left tib-fib (12/18/17): Subcutaneous emphysema is seen tracking along the lateral lower extremity. Left foot X-ray (12/17/17): Extensive left forefoot subcutaneous gas and poor visualization of the 4th metatarsal head is likely related to osteomyelitis and soft tissue abscess. MRI to assess for osteomyelitis - Findings consistent with osteomyelitis involving the distal portion and the head of the 4th metatarsal and also involving the proximal phalanx of the 4th toe. * Suspicious for septic arthritis of the 4th metatarsophalangeal joint. * Bone marrow edema and questionable small erosion noted at the head of the 3rd metatarsal bone may represent an early osteomyelitis. * Mild bone marrow edema noted at the proximal phalanx of the 3rd and 5th toe likely represent reactive changes due to hyperemia. * Diffuse soft tissue infection/inflammatory process at the lateral distal portion of the left foot associated with foci of air in the subcutaneous and deep soft tissue. The possibility of small abscess formation cannot be totally excluded in this noncontrast enhanced study. * Soft tissue edema and diffuse myositis at the mid and distal portion of the left foot. * As per podiatry note (12/20/17): Patient was informed of the MRI result with possible treatment options. Amputation of left 3rd 4th 5th rays discussed, which patient adamantly refused. -Patient was informed of possible outcome including advancement of OM, systemic infection PICC line placement 12/23 Dr. Brooks: Patient suggested to have CTA and vascular eval JASPER/PVR 12/23 Podiatry: OR scheduled for Saturday12/27/17 Left foot Incision and drainage , debridement non-viable tissue with Dr. Hernandez Medication/Management: Dilaudid 0.5mg IVP Q4H PRN for pain control Meropenem 500mg IV Q6H (Started 12/18/17) Vancomycin 1g IV Q12H (Started 12/18/17) Florastor 250mg PO BID PT/OT treatment and evaluation Status: Acute (2) Uncontrolled diabetes mellitus Assessment & Plan: HbgA1C (12/18/17): 12.3 Accuchecks Aspart 6 units ACBL Lantus 20 units HS Hypoglycemia protocol Status: Acute (3) HTN (hypertension) Assessment & Plan: BP well controlled Continue home med Lisinopril 10mg PO QD (renal protective as well) Status: Chronic (4) Prophylactic measure Assessment & Plan: I: Protonix 40mg PO QD DVT: SCD and anticoagulation contraindicated due to s/p left foot incision and drainage for left foot soft tissue emphysema POD #6 (12/18/17), to restart as per podiatry's recommendation. Patient is ambulating with physical therapy. Heart healthy, diabetic diet Status: Acute Lacy Eng, DO PGY1 <Janeth Hunt - Last Filed: 12/24/17 17:34> Objective - Vital Signs/Intake and Output Vital Signs (last 24 hours): Temp Pulse Resp BP Pulse Ox 98.1 F 84 20 123/78 96 12/24/17 16:00 12/24/17 16:00 12/24/17 16:00 12/24/17 16:00 12/24/17 16:00 Intake and Output: 12/24/17 12/24/17 06:59 18:59 Intake Total 440 880 Output Total 650 Balance -210 880 - Medications Medications: Current Medications Benzonatate (Tessalon Perles) 100 mg PO TID PRN PRN Reason: FOR COUGH Last Admin: 12/21/17 19:22 Dose: 100 mg Dextrose (Dextrose 50% Inj) 0 ml IVP .STAT PRN; Protocol PRN Reason: Hypoglycemia Protocol Dextrose (Glutose 15) 0 gm PO .ONCE PRN; Protocol PRN Reason: Hypoglycemia Protocol Glucagon (Glucagen Diagnostic Kit) 0 mg IM .STAT PRN; Protocol PRN Reason: Hypoglycemia Protocol Hydromorphone HCl (Dilaudid) 0.5 mg IVP Q4H PRN PRN Reason: Pain, severe (8-10) Last Admin: 12/24/17 09:45 Dose: 0.5 mg Piperacillin Sod/Tazobactam (Sod 3.375 gm/ Sodium Chloride) 100 mls @ 200 mls/ hr IVPB Q8H [facility] PRN Reason: Protocol Last Admin: 12/24/17 12:21 Dose: 200 mls/hr Insulin Aspart (Novolog) 6 unit SC ACBL [facility] Last Admin: 12/24/17 12:26 Dose: 6 unit Insulin Glargine (Lantus) 20 unit SC HS [facility] Insulin Human Regular (Novolin R) 0 unit SC Q6 [facility] PRN Reason: Protocol Last Admin: 12/24/17 12:20 Dose: 10 unit Pantoprazole Sodium (Protonix Ec Tab) 40 mg PO DAILY [facility] Last Admin: 12/24/17 09:44 Dose: 40 mg Saccharomyces Boulardii (Florastor) 250 mg PO BID [facility] Last Admin: 12/24/17 09:44 Dose: 250 mg - Labs Labs: 12/24/17 07:46 12/24/17 07:46 PT 15.0 SECONDS (9.7-12.2) H 12/17/17 22:10 INR 1.3 12/17/17 22:10 APTT 27 SECONDS (21-34) 12/17/17 22:10 Attending/Attestation - Attestation I have personally seen and examined this patient.: Yes I have fully participated in the care of the patient.: Yes I have reviewed all pertinent clinical information, including history, physical exam and plan: Yes Notes (Text): Patient was seen and examined No complain.D/w Podiatry resident. Patient's foot has pus drainage .scheduled for Saturday12/27/17 Left foot Incision and drainage Dr. Hernandez Discussed about sugar control. He was noncompliance with his insulin at home. d/w resident. I agree with the documentation of the resident's assessment and the plan We will change basal insulin to Lantus for better control.Increase novolog with meals.continue zosyn
[2017-12-24] MEDS ORDERED: (Lantus) Insulin Glargine, Recombinant SC SCH (22:00)
[2017-12-25] MEDS: (Novolin R) Insulin Human Regular 100 units/ml vial SC SCH ×2 (00:25→06:19)
[2017-12-25] MEDS: Piperacillin/Tazobact 3.375 GM in Sodium Chloride 100 ML IVPB SCH ×3 (04:03→20:00)
[2017-12-25] MEDS: HYDROmorphone 0.5 mg/0.5 ml ISec IVP PRN ×2 (05:10→11:23)
[2017-12-25 06:43] LABS: BASO # 0.1 K/uL (0.0-0.2); BASO % 0.8 % (0.0-2.0); EOS # 0.3 K/uL (0.0-0.7); EOS % 4.9 % (0.0-4.0); LYMPH # 1.6 K/uL (1.0-4.3); MEAN CELL VOLUME 94.5 fL (80.0-94.0); MEAN CORPUSCULAR HEMOGLOBIN 32.7 pg (27.0-31.0); MEAN CORPUSCULAR HGB CONC 34.6 g/dL (33.0-37.0); MEAN PLATELET VOLUME 6.9 fL (7.2-11.7); MONO # 0.7 K/uL (0.0-0.8); MONO % 10.1 % (0.0-10.0); NEUT # 4.1 K/uL (1.8-7.0); NEUT % 61.2 % (50.0-75.0); NRBC % 0.1 % (0.0-2.0); RBC 2.75 Mil/uL (4.40-5.90); RED CELL DISTRIBUTION WIDTH 14.1 % (11.5-14.5); WHITE BLOOD COUNT 6.8 K/uL (4.8-10.8)
[2017-12-25 06:56] LABS: ALB/GLOB RATIO 0.8 (1.0-2.1); ALBUMIN 2.8 g/dL (3.5-5.0); ALT/SGPT 63 U/L (21-72); AST/SGOT 33 U/L (17-59); BLOOD UREA NITROGEN 10 mg/dL (9-20); CALCIUM 8.9 mg/dl (8.6-10.4); GFR AFRICAN-AMERICAN > 60; GFR NON-AFRICAN AMERICAN > 60
--- NOTE | 2017-12-25 07:56 | CP.PCM.PN ---
<Lacy Teague - Last Filed: 12/25/17 13:17> Subjective - Date & Time of Evaluation Date of Evaluation: 12/25/17 Time of Evaluation: 07:55 - Subjective Subjective: Progress Note for Dr. Hunt Patient seen and examined at bedside. Patient states he feels that his leg feels better and that he's aware he may go to OR if his foot ulcer does not improve Objective - Vital Signs/Intake and Output Vital Signs (last 24 hours): Temp Pulse Resp BP Pulse Ox 98.2 F 90 20 122/77 95 12/25/17 00:00 12/25/17 00:00 12/25/17 00:00 12/25/17 00:00 12/25/17 00:00 Intake and Output: 12/25/17 12/25/17 06:59 18:59 Intake Total 700 Output Total 400 Balance 300 - Medications Medications: Current Medications Benzonatate (Tessalon Perles) 100 mg PO TID PRN PRN Reason: FOR COUGH Last Admin: 12/21/17 19:22 Dose: 100 mg Dextrose (Dextrose 50% Inj) 0 ml IVP .STAT PRN; Protocol PRN Reason: Hypoglycemia Protocol Dextrose (Glutose 15) 0 gm PO .ONCE PRN; Protocol PRN Reason: Hypoglycemia Protocol Glucagon (Glucagen Diagnostic Kit) 0 mg IM .STAT PRN; Protocol PRN Reason: Hypoglycemia Protocol Hydromorphone HCl (Dilaudid) 0.5 mg IVP Q4H PRN PRN Reason: Pain, severe (8-10) Last Admin: 12/25/17 05:10 Dose: 0.5 mg Piperacillin Sod/Tazobactam (Sod 3.375 gm/ Sodium Chloride) 100 mls @ 200 mls/ hr IVPB Q8H [facility] PRN Reason: Protocol Last Admin: 12/25/17 04:03 Dose: 200 mls/hr Insulin Aspart (Novolog) 6 unit SC ACBL [facility] Last Admin: 12/24/17 12:26 Dose: 6 unit Insulin Glargine (Lantus) 20 unit SC HS [facility] Last Admin: 12/24/17 22:19 Dose: 20 units Pantoprazole Sodium (Protonix Ec Tab) 40 mg PO DAILY [facility] Last Admin: 12/24/17 09:44 Dose: 40 mg Saccharomyces Boulardii (Florastor) 250 mg PO BID [facility] Last Admin: 12/24/17 17:37 Dose: 250 mg - Labs Labs: 12/25/17 06:39 12/25/17 06:39 PT 15.0 SECONDS (9.7-12.2) H 12/17/17 22:10 INR 1.3 12/17/17 22:10 APTT 27 SECONDS (21-34) 12/17/17 22:10 - Constitutional Appears: Non-toxic, No Acute Distress - Head Exam Head Exam: ATRAUMATIC, NORMAL INSPECTION, NORMOCEPHALIC - Eye Exam Eye Exam: EOMI, Normal appearance Pupil Exam: NORMAL ACCOMODATION, PERRL - ENT Exam ENT Exam: Mucous Membranes Moist, Normal Exam - Neck Exam Neck Exam: Full ROM, Normal Inspection - Respiratory Exam Respiratory Exam: Clear to Ausculation Bilateral, NORMAL BREATHING PATTERN - Cardiovascular Exam Cardiovascular Exam: REGULAR RHYTHM, +S1, +S2 - GI/Abdominal Exam GI & Abdominal Exam: Soft, Normal Bowel Sounds. absent: Tenderness - Extremities Exam Extremities Exam: Normal Capillary Refill. absent: Pedal Edema Additional comments: left foot dressings c/d/i, Patient able to flex knees and hips bilaterally. full ROM for right lower extremity. - Back Exam Back Exam: Full ROM - Neurological Exam Neurological Exam: Alert, CN II-XII Intact, Normal Gait, Oriented x3 - Skin Skin Exam: Dry, Intact, Normal Color, Warm Assessment and Plan - Assessment and Plan (Free Text) Assessment: 52M with past medical history of DM, HTN, and history of left foot ulceration treated in 04/2017 presents with left foot ulcer with soft tissue emphysema s/p left foot I&D POD #7 scheduled for incision and drainage and debridement of non-viable tissue Saturday12/27/[address] Hernandez (1) Diabetic foot ulcers Assessment & Plan: Podiatry: Dr. Hernandez * S/p bedside incision and drainage 12/18/17 * S/p left foot incision and drainage for left foot soft tissue emphysema POD 12/18/17 * wound care and pain management as per podiatry team (+) Leukocytosis, stable * Infectious Disease consult: Dr Brooks * Blood culture negative at 3 days x2 * Left foot wound culture:Proteus Mirabilis and Group G Strep Imaging: X-ray left foot - gas emphysema noted dorsum and plantar aspect of mid-foot Left foot X-rays s/p bedside I&D (12/18/17): Postsurgical changes with subcutaneous emphysema seen. Focal osteopenia in the 4th and 5th metatarsal heads may reflect underlying osteomyelitis. Left foot X-rays left tib-fib (12/18/17): Subcutaneous emphysema is seen tracking along the lateral lower extremity. Left foot X-ray (12/17/17): Extensive left forefoot subcutaneous gas and poor visualization of the 4th metatarsal head is likely related to osteomyelitis and soft tissue abscess. MRI to assess for osteomyelitis - Findings consistent with osteomyelitis involving the distal portion and the head of the 4th metatarsal and also involving the proximal phalanx of the 4th toe. * Suspicious for septic arthritis of the 4th metatarsophalangeal joint. * Bone marrow edema and questionable small erosion noted at the head of the 3rd metatarsal bone may represent an early osteomyelitis. * Mild bone marrow edema noted at the proximal phalanx of the 3rd and 5th toe likely represent reactive changes due to hyperemia. * Diffuse soft tissue infection/inflammatory process at the lateral distal portion of the left foot associated with foci of air in the subcutaneous and deep soft tissue. The possibility of small abscess formation cannot be totally excluded in this noncontrast enhanced study. * Soft tissue edema and diffuse myositis at the mid and distal portion of the left foot. * As per podiatry note (12/20/17): Patient was informed of the MRI result with possible treatment options. Amputation of left 3rd 4th 5th rays discussed, which patient adamantly refused. -Patient was informed of possible outcome including advancement of OM, systemic infection PICC line placement 12/23 Dr. Brooks: Patient suggested to have CTA and vascular eval JASPER/PVR 12/23 Podiatry: OR scheduled for Saturday12/27/17 Left foot Incision and drainage , debridement non-viable tissue with Dr. Hernandez Medication/Management: Dilaudid 0.5mg IVP Q4H PRN for pain control Meropenem 500mg IV Q6H (Started 12/18/17), discontinued Vancomycin 1g IV Q12H (Started 12/18/17), discontinued Zosyn (Started 12/20/17) Florastor 250mg PO BID PT/OT treatment and evaluation Status: Acute (2) Uncontrolled diabetes mellitus Assessment & Plan: HbgA1C (12/18/17): 12.3 Accuchecks ACHS Aspart 6 units ACBL Lantus 20 units HS Hypoglycemia protocol Status: Acute (3) HTN (hypertension) Assessment & Plan: BP well controlled Continue home med Lisinopril 10mg PO QD (renal protective as well) Status: Chronic (4) Prophylactic measure Assessment & Plan: I: Protonix 40mg PO QD DVT: SCD and anticoagulation contraindicated due to s/p left foot incision and drainage for left foot soft tissue emphysema POD #6 (12/18/17), to restart as per podiatry's recommendation. Patient is ambulating with physical therapy. Heart healthy, diabetic diet Status: Acute Lacy Eng, DO PGY1 <Janeth Hunt - Last Filed: 12/25/17 15:23> Objective - Vital Signs/Intake and Output Vital Signs (last 24 hours): Temp Pulse Resp BP Pulse Ox 98.4 F 87 20 125/75 96 12/25/17 08:23 12/25/17 11:21 12/25/17 08:23 12/25/17 11:21 12/25/17 08:23 Intake and Output: 12/25/17 12/25/17 06:59 18:59 Intake Total 700 Output Total 400 Balance 300 - Medications Medications: Current Medications Benzonatate (Tessalon Perles) 100 mg PO TID PRN PRN Reason: FOR COUGH Last Admin: 12/21/17 19:22 Dose: 100 mg Dextrose (Dextrose 50% Inj) 0 ml IVP .STAT PRN; Protocol PRN Reason: Hypoglycemia Protocol Dextrose (Glutose 15) 0 gm PO .ONCE PRN; Protocol PRN Reason: Hypoglycemia Protocol Glucagon (Glucagen Diagnostic Kit) 0 mg IM .STAT PRN; Protocol PRN Reason: Hypoglycemia Protocol Piperacillin Sod/Tazobactam (Sod 3.375 gm/ Sodium Chloride) 100 mls @ 200 mls/ hr IVPB Q8H [facility] PRN Reason: Protocol Last Admin: 12/25/17 11:27 Dose: 200 mls/hr Insulin Aspart (Novolog) 8 unit SC ACBL [facility] Insulin Glargine (Lantus) 30 unit SC HS [facility] Morphine Sulfate (Morphine) 1 mg IVP Q6H PRN PRN Reason: Pain, moderate (4-7) Oxycodone/Acetaminophen (Percocet 5/325 Mg Tab) 1 tab PO Q6H PRN PRN Reason: Pain, severe (8-10) Stop: 12/28/17 21:01 Pantoprazole Sodium (Protonix Ec Tab) 40 mg PO DAILY [facility] Last Admin: 12/25/17 09:27 Dose: 40 mg Saccharomyces Boulardii (Florastor) 250 mg PO BID [facility] Last Admin: 12/25/17 09:27 Dose: 250 mg - Labs Labs: 12/25/17 06:39 12/25/17 06:39 PT 15.0 SECONDS (9.7-12.2) H 12/17/17 22:10 INR 1.3 12/17/17 22:10 APTT 27 SECONDS (21-34) 12/17/17 22:10 Attending/Attestation - Attestation I have personally seen and examined this patient.: Yes I have fully participated in the care of the patient.: Yes I have reviewed all pertinent clinical information, including history, physical exam and plan: Yes Notes (Text): Patient was seen and examined discussed about sugar control .He is going for left foot incision and drainage for left foot soft tissue emphysema on Saturday continue zosyn Increase insulin and monitor sugar. Discussed with the resident I agree with the resident's documentation of the assessment and the plan
[2017-12-25] MEDS: (Novolog) Insulin Aspart, Recombinant 100 u/ml 10 ml vial SC SCH ×2 (08:27→12:15)
[2017-12-25] MEDS: Pantoprazole 40 mg EC Tab PO SCH (09:27)
[2017-12-25] MEDS: Saccharomyces Boulardi 250 mg Cap PO SCH ×2 (09:27→17:32)
--- NOTE | 2017-12-25 13:05 | CP.PCM.PN ---
Subjective - Date & Time of Evaluation Date of Evaluation: 12/25/17 Time of Evaluation: 11:03 - Subjective Subjective: Podiatry note for Dr. Hernandez 52 year old male patient 7 days s/p LEFT foot incision and drainage was seen at bedside this morning. Patient is resting comfortably in bed with no acute distress AAOx3. Dressing to Left foot cdi. He denies of any pain when resting, admits to mild pain to left foot when changing dressing. Patient denies of any N /V/F/C or SOB today. To OR Saturday12/27/17; Left foot incision and drainage Objective - Vital Signs/Intake and Output Vital Signs (last 24 hours): Temp Pulse Resp BP Pulse Ox 98.4 F 87 20 125/75 96 12/25/17 08:23 12/25/17 11:21 12/25/17 08:23 12/25/17 11:21 12/25/17 08:23 Intake and Output: 12/25/17 12/25/17 06:59 18:59 Intake Total 700 Output Total 400 Balance 300 - Medications Medications: Current Medications Benzonatate (Tessalon Perles) 100 mg PO TID PRN PRN Reason: FOR COUGH Last Admin: 12/21/17 19:22 Dose: 100 mg Dextrose (Dextrose 50% Inj) 0 ml IVP .STAT PRN; Protocol PRN Reason: Hypoglycemia Protocol Dextrose (Glutose 15) 0 gm PO .ONCE PRN; Protocol PRN Reason: Hypoglycemia Protocol Glucagon (Glucagen Diagnostic Kit) 0 mg IM .STAT PRN; Protocol PRN Reason: Hypoglycemia Protocol Hydromorphone HCl (Dilaudid) 0.5 mg IVP Q4H PRN PRN Reason: Pain, severe (8-10) Last Admin: 12/25/17 11:23 Dose: 0.5 mg Piperacillin Sod/Tazobactam (Sod 3.375 gm/ Sodium Chloride) 100 mls @ 200 mls/ hr IVPB Q8H [facility] PRN Reason: Protocol Last Admin: 12/25/17 11:27 Dose: 200 mls/hr Insulin Aspart (Novolog) 6 unit SC ACBL [facility] Last Admin: 12/25/17 12:15 Dose: 6 unit Insulin Glargine (Lantus) 30 unit SC HS [facility] Pantoprazole Sodium (Protonix Ec Tab) 40 mg PO DAILY [facility] Last Admin: 12/25/17 09:27 Dose: 40 mg Saccharomyces Issac (Florastor) 250 mg PO BID [facility] Last Admin: 12/25/17 09:27 Dose: 250 mg - Labs Labs: 12/25/17 06:39 12/25/17 06:39 PT 15.0 SECONDS (9.7-12.2) H 12/17/17 22:10 INR 1.3 12/17/17 22:10 APTT 27 SECONDS (21-34) 12/17/17 22:10 - Constitutional Appears: Well, Non-toxic, No Acute Distress - Head Exam Head Exam: ATRAUMATIC - Extremities Exam Additional comments: Left lower extremity exam DERM: DORSAL: 6cm Incision to Dorsal aspect remains well coapted, sutured with an opening in the middle. 1/4 inch iodoform packing was removed today. 1mL of purulent drainage was noted from this incision site. Medial: 6cm Incision remains well coapted, sutured with an opening in the middle. 1/4 inch iodoform packing was removed today. No purulent drainage was noted from this incision site. Plantar: 6cm Incision remains well coapted, sutured with an opening in the middle. 1/4 inch iodoform packing was removed today. No purulent drainage was noted from this incision site. Lateral lecm Incision at the level of ankle joint laterally remains well coapted, sutured with an opening in the middle. 1/4 inch iodoform packing was removed today. No purulent drainage was noted from this incision site. VASC: Non-palpable DP/PT noted secondary to edema. [employer] less than 3 seconds noted to all digits NEURO: Gross sensation intact ORTHO: Pain on palpation to Left foot, Passive ROM to joints cannot be tested due to guarding - Neurological Exam Neurological Exam: Alert, Awake, Oriented x3 - Psychiatric Exam Psychiatric exam: Normal Affect, Normal Mood Assessment and Plan - Assessment and Plan (Free Text) Assessment: 52 yo male patient with chronic LEFT foot ulceration, soft tissue emphysema; 7 days s/p LEFT foot incision and drainag Scheduled for revisional InD on Saturday Plan: Patient was seen and evaluated Labs and vitals reviewed WBC 6.8, Afebrile Left foot cleansed with saline, dressed with Betadine, DSD, MILAGROS Continue Pain medicaions Continue IV Abx Patient to be non-weight bearing to Left lower extremity Podiatry will continue to follow in house Patient scheduled for Incision and drainage, debridement of non-viable tissue Saturday12/27/[address] Hernandez
[2017-12-25] MEDS ORDERED: Oxycodone/Acetaminophen 5/325 mg Tab PO PRN (14:10)
[2017-12-25] MEDS ORDERED: (Novolog) Insulin Aspart, Recombinant 100 u/ml 10 ml vial SC SCH (14:10)
--- NOTE | 2017-12-25 15:38 | CP.PCM.PN ---
Subjective - Date & Time of Evaluation Date of Evaluation: 12/25/17 Time of Evaluation: 08:00 - Subjective Subjective: seen at bedside iv rx in progress wound c/d/i Objective - Vital Signs/Intake and Output Vital Signs (last 24 hours): Temp Pulse Resp BP Pulse Ox 98.4 F 87 20 125/75 96 12/25/17 08:23 12/25/17 11:21 12/25/17 08:23 12/25/17 11:21 12/25/17 08:23 Intake and Output: 12/25/17 12/25/17 06:59 18:59 Intake Total 700 Output Total 400 Balance 300 - Medications Medications: Current Medications Benzonatate (Tessalon Perles) 100 mg PO TID PRN PRN Reason: FOR COUGH Last Admin: 12/21/17 19:22 Dose: 100 mg Dextrose (Dextrose 50% Inj) 0 ml IVP .STAT PRN; Protocol PRN Reason: Hypoglycemia Protocol Dextrose (Glutose 15) 0 gm PO .ONCE PRN; Protocol PRN Reason: Hypoglycemia Protocol Glucagon (Glucagen Diagnostic Kit) 0 mg IM .STAT PRN; Protocol PRN Reason: Hypoglycemia Protocol Piperacillin Sod/Tazobactam (Sod 3.375 gm/ Sodium Chloride) 100 mls @ 200 mls/ hr IVPB Q8H [facility] PRN Reason: Protocol Last Admin: 12/25/17 11:27 Dose: 200 mls/hr Insulin Aspart (Novolog) 8 unit SC ACBL [facility] Insulin Glargine (Lantus) 30 unit SC HS [facility] Morphine Sulfate (Morphine) 1 mg IVP Q6H PRN PRN Reason: Pain, moderate (4-7) Oxycodone/Acetaminophen (Percocet 5/325 Mg Tab) 1 tab PO Q6H PRN PRN Reason: Pain, severe (8-10) Stop: 12/28/17 21:01 Pantoprazole Sodium (Protonix Ec Tab) 40 mg PO DAILY [facility] Last Admin: 12/25/17 09:27 Dose: 40 mg Saccharomyces Boulardii (Florastor) 250 mg PO BID [facility] Last Admin: 12/25/17 09:27 Dose: 250 mg - Labs Labs: 12/25/17 06:39 12/25/17 06:39 PT 15.0 SECONDS (9.7-12.2) H 12/17/17 22:10 INR 1.3 12/17/17 22:10 APTT 27 SECONDS (21-34) 12/17/17 22:10 - Constitutional Appears: Non-toxic, Chronically Ill - Head Exam Head Exam: NORMOCEPHALIC - Eye Exam Eye Exam: PERRL - ENT Exam ENT Exam: Mucous Membranes Dry - Neck Exam Neck Exam: absent: Lymphadenopathy - Respiratory Exam Respiratory Exam: Decreased Breath Sounds - Cardiovascular Exam Cardiovascular Exam: REGULAR RHYTHM - GI/Abdominal Exam GI & Abdominal Exam: Distended Assessment and Plan (1) Diabetic foot ulcers Status: Acute (2) Alcohol abuse Status: Acute (3) Osteomyelitis Status: Acute (4) Osteomyelitis Status: Acute - Assessment and Plan (Free Text) Assessment: cont rx for 6 weeks Plan: Possible once daily rocephin 2 g with wound care
[2017-12-25] MEDS: Oxycodone/Acetaminophen 5/325 mg Tab PO PRN (21:38)
[2017-12-25] MEDS: (Lantus) Insulin Glargine, Recombinant SC SCH (21:43)
[2017-12-26] MEDS: Piperacillin/Tazobact 3.375 GM in Sodium Chloride 100 ML IVPB SCH ×3 (04:43→20:18)
[2017-12-26] MEDS: Oxycodone/Acetaminophen 5/325 mg Tab PO PRN ×3 (06:25→23:59)
[2017-12-26 07:25] LABS: BASO # 0.1 K/uL (0.0-0.2); BASO % 1.1 % (0.0-2.0); EOS # 0.4 K/uL (0.0-0.7); EOS % 4.9 % (0.0-4.0); HEMOGLOBIN 8.8 g/dL (12.0-18.0); LYMPH % 27.1 % (20.0-40.0); MEAN CELL VOLUME 96.2 fL (80.0-94.0); MEAN CORPUSCULAR HEMOGLOBIN 33.5 pg (27.0-31.0); MEAN CORPUSCULAR HGB CONC 34.8 g/dL (33.0-37.0); MONO # 0.8 K/uL (0.0-0.8); MONO % 10.1 % (0.0-10.0); NEUT # 4.3 K/uL (1.8-7.0); NEUT % 56.8 % (50.0-75.0); RBC 2.62 Mil/uL (4.40-5.90); RED CELL DISTRIBUTION WIDTH 14.6 % (11.5-14.5); WHITE BLOOD COUNT 7.5 K/uL (4.8-10.8)
[2017-12-26 07:41] LABS: ALB/GLOB RATIO 0.7 (1.0-2.1); ALBUMIN 2.9 g/dL (3.5-5.0); ALT/SGPT 47 U/L (21-72); AST/SGOT 23 U/L (17-59); BLOOD UREA NITROGEN 12 mg/dL (9-20); CALCIUM 8.7 mg/dl (8.6-10.4); GFR AFRICAN-AMERICAN > 60; GFR NON-AFRICAN AMERICAN > 60
[2017-12-26] MEDS ORDERED: (Novolog) Insulin Aspart, Recombinant 100 u/ml 10 ml vial SC SCH (08:44)
--- NOTE | 2017-12-26 08:47 | CP.PCM.PN ---
<ZahidaLacy - Last Filed: 12/26/17 13:58> Subjective - Date & Time of Evaluation Date of Evaluation: 12/26/17 Time of Evaluation: 09:30 - Subjective Subjective: Progress Note Patient seen and examined at bedside. Patient given 30 u Lantus overnight and 8 u Novolog in morning. Overnight glucose in 400s. Will adjust. Patient states he' s feeling well and feels like he's getting better. Patient denies fever, chills , nausea, vomiting. Patient admits to pain on foot, but is tolerating pain medication well. Objective - Vital Signs/Intake and Output Vital Signs (last 24 hours): Temp Pulse Resp BP Pulse Ox 98.6 F 86 20 151/86 H 97 12/26/17 08:23 12/26/17 08:23 12/26/17 08:23 12/26/17 08:23 12/26/17 08:23 Intake and Output: 12/26/17 12/26/17 06:59 18:59 Intake Total 440 300 Balance 440 300 - Medications Medications: Current Medications Benzonatate (Tessalon Perles) 100 mg PO TID PRN PRN Reason: FOR COUGH Last Admin: 12/21/17 19:22 Dose: 100 mg Dextrose (Dextrose 50% Inj) 0 ml IVP .STAT PRN; Protocol PRN Reason: Hypoglycemia Protocol Dextrose (Glutose 15) 0 gm PO .ONCE PRN; Protocol PRN Reason: Hypoglycemia Protocol Glucagon (Glucagen Diagnostic Kit) 0 mg IM .STAT PRN; Protocol PRN Reason: Hypoglycemia Protocol Piperacillin Sod/Tazobactam (Sod 3.375 gm/ Sodium Chloride) 100 mls @ 200 mls/ hr IVPB Q8H [facility] PRN Reason: Protocol Last Admin: 12/26/17 04:43 Dose: 200 mls/hr Insulin Aspart (Novolog) 10 unit SC ACBL [facility] Insulin Glargine (Lantus) 30 unit SC HS [facility] Last Admin: 12/25/17 21:43 Dose: 30 units Morphine Sulfate (Morphine) 1 mg IVP Q6H PRN PRN Reason: Pain, moderate (4-7) Last Admin: 12/26/17 01:01 Dose: 1 mg Oxycodone/Acetaminophen (Percocet 5/325 Mg Tab) 1 tab PO Q6H PRN PRN Reason: Pain, severe (8-10) Stop: 12/28/17 21:01 Last Admin: 12/26/17 06:25 Dose: 1 tab Pantoprazole Sodium (Protonix Ec Tab) 40 mg PO DAILY [facility] Last Admin: 12/25/17 09:27 Dose: 40 mg Saccharomyces Boulardii (Florastor) 250 mg PO BID [facility] Last Admin: 12/25/17 17:32 Dose: 250 mg - Labs Labs: 12/26/17 07:10 12/26/17 07:10 PT 15.0 SECONDS (9.7-12.2) H 12/17/17 22:10 INR 1.3 12/17/17 22:10 APTT 27 SECONDS (21-34) 12/17/17 22:10 - Constitutional Appears: Non-toxic, No Acute Distress - Head Exam Head Exam: ATRAUMATIC, NORMAL INSPECTION, NORMOCEPHALIC - Eye Exam Eye Exam: EOMI, Normal appearance - ENT Exam ENT Exam: Mucous Membranes Moist, Normal Exam - Neck Exam Neck Exam: Full ROM, Normal Inspection. absent: Thyromegaly - Cardiovascular Exam Cardiovascular Exam: REGULAR RHYTHM, +S1, +S2 - Extremities Exam Extremities Exam: Full ROM. absent: Pedal Edema - Neurological Exam Neurological Exam: Alert, Awake, CN II-XII Intact, Oriented x3 - Psychiatric Exam Psychiatric exam: Normal Affect, Normal Mood - Skin Skin Exam: Dry, Intact, Normal Color, Warm Assessment and Plan - Assessment and Plan (Free Text) Assessment: 52M with past medical history of DM, HTN, and history of left foot ulceration treated in 04/2017 presents with left foot ulcer with soft tissue emphysema s/p left foot I&D POD #8 (12/18/17) scheduled for incision and drainage and debridement of non-viable tissue Saturday12/27/[address] Hernandez (1) Diabetic foot ulcers Assessment & Plan: Podiatry: Dr. Hernandez * S/p bedside incision and drainage 12/18/17 * S/p left foot incision and drainage for left foot soft tissue emphysema POD 12/18/17 * wound care and pain management as per podiatry team (+) Leukocytosis, stable * Infectious Disease consult: Dr Brooks * Blood culture negative at 3 days x2 * Left foot wound culture:Proteus Mirabilis and Group G Strep Imaging: X-ray left foot - gas emphysema noted dorsum and plantar aspect of mid-foot Left foot X-rays s/p bedside I&D (12/18/17): Postsurgical changes with subcutaneous emphysema seen. Focal osteopenia in the 4th and 5th metatarsal heads may reflect underlying osteomyelitis. Left foot X-rays left tib-fib (12/18/17): Subcutaneous emphysema is seen tracking along the lateral lower extremity. Left foot X-ray (12/17/17): Extensive left forefoot subcutaneous gas and poor visualization of the 4th metatarsal head is likely related to osteomyelitis and soft tissue abscess. MRI to assess for osteomyelitis - Findings consistent with osteomyelitis involving the distal portion and the head of the 4th metatarsal and also involving the proximal phalanx of the 4th toe. * Suspicious for septic arthritis of the 4th metatarsophalangeal joint. * Bone marrow edema and questionable small erosion noted at the head of the 3rd metatarsal bone may represent an early osteomyelitis. * Mild bone marrow edema noted at the proximal phalanx of the 3rd and 5th toe likely represent reactive changes due to hyperemia. * Diffuse soft tissue infection/inflammatory process at the lateral distal portion of the left foot associated with foci of air in the subcutaneous and deep soft tissue. The possibility of small abscess formation cannot be totally excluded in this noncontrast enhanced study. * Soft tissue edema and diffuse myositis at the mid and distal portion of the left foot. * As per podiatry note (12/20/17): Patient was informed of the MRI result with possible treatment options. Amputation of left 3rd 4th 5th rays discussed, which patient adamantly refused. -Patient was informed of possible outcome including advancement of OM, systemic infection PICC line placement 12/23 Dr. Brooks: Patient suggested to have CTA and vascular eval JASPER/PVR: Right JASPER non diagnostic due to arterial wall calcification, PVR waveforms show normal arterial perfusion to bilateral lower extremities at rest , normal toe brachial indexes left JASPER non diagnostic due to arterial wall calcification. PVR waveforms have normal arterial perfusion to bilateral lower extremities at restl normal toe brachial indexes. recommend CTA 12/23 Podiatry: OR scheduled for Saturday12/27/17 Left foot Incision and drainage , debridement non-viable tissue with Dr. Hernandez Medication/Management: Dilaudid 0.5mg IVP Q4H PRN for pain control Meropenem 500mg IV Q6H (Started 12/18/17), discontinued Vancomycin 1g IV Q12H (Started 12/18/17), discontinued Zosyn (Started 12/20/17) Florastor 250mg PO BID PT/OT treatment and evaluation Status: Acute (2) Uncontrolled diabetes mellitus Assessment & Plan: HbgA1C (12/18/17): 12.3 Accuchecks ACHS Aspart 10 units ACHS Lantus 30 units HS Hypoglycemia protocol Status: Acute (3) HTN (hypertension) Assessment & Plan: BP well controlled Continue home med Lisinopril 10mg PO QD (renal protective as well) Status: Chronic (4) Prophylactic measure Assessment & Plan: I: Protonix 40mg PO QD DVT: SCD and anticoagulation contraindicated due to s/p left foot incision and drainage for left foot soft tissue emphysema POD #8 (12/18/17), to restart as per podiatry's recommendation. Patient is ambulating with physical therapy. Heart healthy, diabetic diet Pain: patient was on morphine at high doses, weaned down. Morphine 1 mg q6h and percocet 5/325 q6h prn pain 12/25 Morphine 1 mg q6H discontinued. Patient is on percocet 5/325 q6h today 12/26 Status: Acute Lacy Teague DO PGY1 <Janeth Hunt - Last Filed: 12/26/17 16:22> Objective - Vital Signs/Intake and Output Vital Signs (last 24 hours): Temp Pulse Resp BP Pulse Ox 98.6 F 86 20 151/86 H 97 12/26/17 08:23 12/26/17 08:23 12/26/17 08:23 12/26/17 08:23 12/26/17 08:23 Intake and Output: 12/26/17 12/26/17 06:59 18:59 Intake Total 440 950 Balance 440 950 - Medications Medications: Current Medications Benzonatate (Tessalon Perles) 100 mg PO TID PRN PRN Reason: FOR COUGH Last Admin: 12/21/17 19:22 Dose: 100 mg Dextrose (Dextrose 50% Inj) 0 ml IVP .STAT PRN; Protocol PRN Reason: Hypoglycemia Protocol Dextrose (Glutose 15) 0 gm PO .ONCE PRN; Protocol PRN Reason: Hypoglycemia Protocol Glucagon (Glucagen Diagnostic Kit) 0 mg IM .STAT PRN; Protocol PRN Reason: Hypoglycemia Protocol Piperacillin Sod/Tazobactam (Sod 3.375 gm/ Sodium Chloride) 100 mls @ 200 mls/ hr IVPB Q8H [facility] PRN Reason: Protocol Last Admin: 12/26/17 11:38 Dose: 200 mls/hr Insulin Aspart (Novolog) 10 unit SC ACHS [facility] Last Admin: 12/26/17 11:39 Dose: 10 unit Insulin Glargine (Lantus) 30 unit SC HS [facility] Last Admin: 12/25/17 21:43 Dose: 30 units Oxycodone/Acetaminophen (Percocet 5/325 Mg Tab) 1 tab PO Q6H PRN PRN Reason: Pain, severe (8-10) Stop: 12/28/17 21:01 Last Admin: 12/26/17 06:25 Dose: 1 tab Pantoprazole Sodium (Protonix Ec Tab) 40 mg PO DAILY [facility] Last Admin: 12/26/17 10:14 Dose: 40 mg Saccharomyces Boulardii (Florastor) 250 mg PO BID [facility] Last Admin: 12/26/17 10:14 Dose: 250 mg - Labs Labs: 12/26/17 07:10 12/26/17 07:10 PT 15.0 SECONDS (9.7-12.2) H 12/17/17 22:10 INR 1.3 12/17/17 22:10 APTT 27 SECONDS (21-34) 12/17/17 22:10 Attending/Attestation - Attestation I have personally seen and examined this patient.: Yes I have fully participated in the care of the patient.: Yes I have reviewed all pertinent clinical information, including history, physical exam and plan: Yes Notes (Text): Seen and examined He has no complain.His sugar was high this morning. Discussed about sugar control and diet we will increase NOVOLOG with meals.continue Lantus 30units. May increase Lantus dose tomorrow if sugar remains high .monitor sugar. Going to OR for I and D tomorrow I agree with the documentation of the assessment and the plan of the resident
[2017-12-26] MEDS: Saccharomyces Boulardi 250 mg Cap PO SCH ×2 (10:14→18:56)
[2017-12-26] MEDS: Pantoprazole 40 mg EC Tab PO SCH (10:14)
--- NOTE | 2017-12-26 10:48 | CP.PCM.PN ---
Subjective - Date & Time of Evaluation Date of Evaluation: 12/26/17 Time of Evaluation: 09:46 - Subjective Subjective: Podiatry note for Dr. Hernandez 52 year old male patient 8 days s/p LEFT foot incision and drainage was seen at bedside this morning. AAOx3, No acute overnight distress. Dressing to Left lower extremity remains clean dry intact. He admits to mild pain to left foot when changing dressing. Patient denies of any N/V/F/C or SOB today. To OR Saturday12/27/17; Left foot incision and drainage Objective - Vital Signs/Intake and Output Vital Signs (last 24 hours): Temp Pulse Resp BP Pulse Ox 98.6 F 86 20 151/86 H 97 12/26/17 08:23 12/26/17 08:23 12/26/17 08:23 12/26/17 08:23 12/26/17 08:23 Intake and Output: 12/26/17 12/26/17 06:59 18:59 Intake Total 440 300 Balance 440 300 - Medications Medications: Current Medications Benzonatate (Tessalon Perles) 100 mg PO TID PRN PRN Reason: FOR COUGH Last Admin: 12/21/17 19:22 Dose: 100 mg Dextrose (Dextrose 50% Inj) 0 ml IVP .STAT PRN; Protocol PRN Reason: Hypoglycemia Protocol Dextrose (Glutose 15) 0 gm PO .ONCE PRN; Protocol PRN Reason: Hypoglycemia Protocol Glucagon (Glucagen Diagnostic Kit) 0 mg IM .STAT PRN; Protocol PRN Reason: Hypoglycemia Protocol Piperacillin Sod/Tazobactam (Sod 3.375 gm/ Sodium Chloride) 100 mls @ 200 mls/ hr IVPB Q8H [facility] PRN Reason: Protocol Last Admin: 12/26/17 04:43 Dose: 200 mls/hr Insulin Aspart (Novolog) 10 unit SC ACHS [facility] Insulin Glargine (Lantus) 30 unit SC HS [facility] Last Admin: 12/25/17 21:43 Dose: 30 units Oxycodone/Acetaminophen (Percocet 5/325 Mg Tab) 1 tab PO Q6H PRN PRN Reason: Pain, severe (8-10) Stop: 12/28/17 21:01 Last Admin: 12/26/17 06:25 Dose: 1 tab Pantoprazole Sodium (Protonix Ec Tab) 40 mg PO DAILY [facility] Last Admin: 12/26/17 10:14 Dose: 40 mg Saccharomyces Griseldai (Florastor) 250 mg PO BID [facility] Last Admin: 12/26/17 10:14 Dose: 250 mg - Labs Labs: 12/26/17 07:10 12/26/17 07:10 PT 15.0 SECONDS (9.7-12.2) H 12/17/17 22:10 INR 1.3 12/17/17 22:10 APTT 27 SECONDS (21-34) 12/17/17 22:10 - Constitutional Appears: Well, Non-toxic, No Acute Distress - Head Exam Head Exam: ATRAUMATIC - Extremities Exam Additional comments: Left lower extremity exam DERM: DORSAL: 6cm Incision to Dorsal aspect remains well coapted, sutured with an opening in the middle. 1mL of purulent drainage was noted from this incision site. Medial: 6cm Incision remains well coapted, sutured with an opening in the middle. No purulent drainage was noted from this incision site. Plantar: 6cm Incision remains well coapted, sutured with an opening in the middle. No purulent drainage was noted from this incision site. Lateral lecm Incision at the level of ankle joint laterally remains well coapted, sutured with an opening in the middle. No purulent drainage was noted from this incision site. VASC: Non-palpable DP/PT noted secondary to edema. [employer] less than 3 seconds noted to all digits NEURO: Gross sensation intact ORTHO: Pain on palpation to Left foot, Passive ROM to joints cannot be tested due to guarding - Neurological Exam Neurological Exam: Alert, Awake, Oriented x3 - Psychiatric Exam Psychiatric exam: Normal Affect, Normal Mood Assessment and Plan - Assessment and Plan (Free Text) Assessment: 52 yo male patient with chronic LEFT foot ulceration, soft tissue emphysema; 8 days s/p LEFT foot incision and drainag Scheduled for InD Saturday Plan: Patient was seen and evaluated Labs and vitals reviewed WBC 7.5, Afebrile Left foot cleansed with saline, dressed with Betadine, DSD, MILAGROS Continue Pain medicaions Continue IV Abx Patient to be non-weight bearing to Left lower extremity Podiatry will continue to follow in house Keep NPO after midnight Medical clearance requested Patient scheduled for Incision and drainage, debridement of non-viable tissue Tomorrow with Dr. Hernandez
[2017-12-26] MEDS: (Novolog) Insulin Aspart, Recombinant 100 u/ml 10 ml vial SC SCH ×3 (11:39→22:29)
--- NOTE | 2017-12-26 13:58 | CP.PCM.PCO ---
Physician Communication Note - Physician Communication Note Physician Communication Note: patient is medically cleared for OR tomorrow
[2017-12-26] MEDS: (Lantus) Insulin Glargine, Recombinant SC SCH (22:31)
[2017-12-27] MEDS: Piperacillin/Tazobact 3.375 GM in Sodium Chloride 100 ML IVPB SCH ×3 (04:03→20:55)
[2017-12-27] MEDS: Oxycodone/Acetaminophen 5/325 mg Tab PO PRN ×2 (06:18→18:14)
[2017-12-27] MEDS: (Novolog) Insulin Aspart, Recombinant 100 u/ml 10 ml vial SC SCH ×4 (07:43→22:14)
[2017-12-27 08:09] LABS: BASO # 0.1 K/uL (0.0-0.2); BASO % 1.4 % (0.0-2.0); EOS # 0.4 K/uL (0.0-0.7); EOS % 4.7 % (0.0-4.0); HEMOGLOBIN 10.1 g/dL (12.0-18.0); LYMPH # 2.5 K/uL (1.0-4.3); LYMPH % 28.7 % (20.0-40.0); MEAN CELL VOLUME 95.4 fL (80.0-94.0); MEAN CORPUSCULAR HEMOGLOBIN 32.4 pg (27.0-31.0); MEAN PLATELET VOLUME 6.9 fL (7.2-11.7); MONO # 0.6 K/uL (0.0-0.8); MONO % 7.2 % (0.0-10.0); NRBC % 0.1 % (0.0-2.0); RBC 3.11 Mil/uL (4.40-5.90); RED CELL DISTRIBUTION WIDTH 14.2 % (11.5-14.5); WHITE BLOOD COUNT 8.6 K/uL (4.8-10.8)
[2017-12-27 08:19] LABS: ALB/GLOB RATIO 0.8 (1.0-2.1); ALBUMIN 3.4 g/dL (3.5-5.0); ALT/SGPT 47 U/L (21-72); AST/SGOT 31 U/L (17-59); BLOOD UREA NITROGEN 14 mg/dL (9-20); CALCIUM 9.4 mg/dl (8.6-10.4); GFR AFRICAN-AMERICAN > 60; GFR NON-AFRICAN AMERICAN > 60
--- NOTE | 2017-12-27 09:05 | CP.PCM.PN ---
<Lacy Teague - Last Filed: 12/27/17 11:35> Subjective - Date & Time of Evaluation Date of Evaluation: 12/27/17 Time of Evaluation: 09:04 - Subjective Subjective: Progress Note for Dr. Hunt Patient seen and examined at bedside. No acute events overnight. Patient states that he could not sleep well overnight. Patient was NPO past midnight and is set for the OR today for debridement and incision and drainage Objective - Vital Signs/Intake and Output Vital Signs (last 24 hours): Temp Pulse Resp BP Pulse Ox 98.1 F 89 20 120/77 97 12/27/17 07:43 12/27/17 07:43 12/27/17 07:43 12/27/17 07:43 12/27/17 07:43 Intake and Output: 12/27/17 12/27/17 06:59 18:59 Intake Total 650 Output Total 750 Balance -100 - Medications Medications: Current Medications Benzonatate (Tessalon Perles) 100 mg PO TID PRN PRN Reason: FOR COUGH Last Admin: 12/21/17 19:22 Dose: 100 mg Dextrose (Dextrose 50% Inj) 0 ml IVP .STAT PRN; Protocol PRN Reason: Hypoglycemia Protocol Dextrose (Glutose 15) 0 gm PO .ONCE PRN; Protocol PRN Reason: Hypoglycemia Protocol Glucagon (Glucagen Diagnostic Kit) 0 mg IM .STAT PRN; Protocol PRN Reason: Hypoglycemia Protocol Piperacillin Sod/Tazobactam (Sod 3.375 gm/ Sodium Chloride) 100 mls @ 200 mls/ hr IVPB Q8H [facility] PRN Reason: Protocol Last Admin: 12/27/17 04:03 Dose: 200 mls/hr Insulin Aspart (Novolog) 10 unit SC ACHS [facility] Last Admin: 12/27/17 07:43 Dose: Not Given Insulin Glargine (Lantus) 30 unit SC HS [facility] Last Admin: 12/26/17 22:31 Dose: 30 units Oxycodone/Acetaminophen (Percocet 5/325 Mg Tab) 1 tab PO Q6H PRN PRN Reason: Pain, severe (8-10) Stop: 12/28/17 21:01 Last Admin: 12/27/17 06:18 Dose: 1 tab Pantoprazole Sodium (Protonix Ec Tab) 40 mg PO DAILY [facility] Last Admin: 12/26/17 10:14 Dose: 40 mg Saccharomyces Boulardii (Florastor) 250 mg PO BID [facility] Last Admin: 12/26/17 18:56 Dose: 250 mg - Labs Labs: 12/27/17 07:58 12/27/17 07:58 PT 15.0 SECONDS (9.7-12.2) H 12/17/17 22:10 INR 1.3 12/17/17 22:10 APTT 27 SECONDS (21-34) 12/17/17 22:10 - Constitutional Appears: Non-toxic, No Acute Distress - Head Exam Head Exam: ATRAUMATIC, NORMAL INSPECTION, NORMOCEPHALIC - Eye Exam Eye Exam: EOMI, Normal appearance Pupil Exam: NORMAL ACCOMODATION, PERRL - ENT Exam ENT Exam: Mucous Membranes Moist, Normal Exam - Neck Exam Neck Exam: Full ROM, Normal Inspection - Respiratory Exam Respiratory Exam: Clear to Ausculation Bilateral, NORMAL BREATHING PATTERN. absent: Accessory Muscle Use - Cardiovascular Exam Cardiovascular Exam: REGULAR RHYTHM, +S1, +S2. absent: Bradycardia, Tachycardia - GI/Abdominal Exam GI & Abdominal Exam: Soft, Normal Bowel Sounds. absent: Tenderness - Extremities Exam Extremities Exam: Full ROM, Normal Capillary Refill. absent: Pedal Edema - Back Exam Back Exam: Full ROM, NORMAL INSPECTION - Neurological Exam Neurological Exam: Alert, Awake, CN II-XII Intact, Oriented x3 - Psychiatric Exam Psychiatric exam: Normal Affect, Normal Mood - Skin Skin Exam: Dry, Intact, Normal Color, Warm Assessment and Plan - Assessment and Plan (Free Text) Assessment: 52M with past medical history of DM, HTN, and history of left foot ulceration treated in 04/2017 presents with left foot ulcer with soft tissue emphysema s/p left foot I&D POD #9 (12/18/17) scheduled for incision and drainage and debridement of non-viable tissue Saturday12/27/[address] Hernandez (1) Diabetic foot ulcers Assessment & Plan: Podiatry: Dr. Hernandez * S/p bedside incision and drainage 12/18/17 * S/p left foot incision and drainage for left foot soft tissue emphysema POD 12/18/17 * wound care and pain management as per podiatry team (+) Leukocytosis, stable * Infectious Disease consult: Dr Brooks * Blood culture negative at 3 days x2 * Left foot wound culture:Proteus Mirabilis and Group G Strep Imaging: X-ray left foot - gas emphysema noted dorsum and plantar aspect of mid-foot Left foot X-rays s/p bedside I&D (12/18/17): Postsurgical changes with subcutaneous emphysema seen. Focal osteopenia in the 4th and 5th metatarsal heads may reflect underlying osteomyelitis. Left foot X-rays left tib-fib (12/18/17): Subcutaneous emphysema is seen tracking along the lateral lower extremity. Left foot X-ray (12/17/17): Extensive left forefoot subcutaneous gas and poor visualization of the 4th metatarsal head is likely related to osteomyelitis and soft tissue abscess. MRI to assess for osteomyelitis - Findings consistent with osteomyelitis involving the distal portion and the head of the 4th metatarsal and also involving the proximal phalanx of the 4th toe. * Suspicious for septic arthritis of the 4th metatarsophalangeal joint. * Bone marrow edema and questionable small erosion noted at the head of the 3rd metatarsal bone may represent an early osteomyelitis. * Mild bone marrow edema noted at the proximal phalanx of the 3rd and 5th toe likely represent reactive changes due to hyperemia. * Diffuse soft tissue infection/inflammatory process at the lateral distal portion of the left foot associated with foci of air in the subcutaneous and deep soft tissue. The possibility of small abscess formation cannot be totally excluded in this noncontrast enhanced study. * Soft tissue edema and diffuse myositis at the mid and distal portion of the left foot. * As per podiatry note (12/20/17): Patient was informed of the MRI result with possible treatment options. Amputation of left 3rd 4th 5th rays discussed, which patient adamantly refused. -Patient was informed of possible outcome including advancement of OM, systemic infection PICC line placement 12/23 Dr. Brooks: Patient suggested to have CTA and vascular eval JASPER/PVR: Right JASPER non diagnostic due to arterial wall calcification, PVR waveforms show normal arterial perfusion to bilateral lower extremities at rest , normal toe brachial indexes left JASPER non diagnostic due to arterial wall calcification. PVR waveforms have normal arterial perfusion to bilateral lower extremities at restl normal toe brachial indexes. recommend CTA 12/23 Podiatry: OR scheduled for Saturday12/27/17 Left foot Incision and drainage , debridement non-viable tissue with Dr. Hernandez Medication/Management: Dilaudid 0.5mg IVP Q4H PRN for pain control Meropenem 500mg IV Q6H (Started 12/18/17), discontinued Vancomycin 1g IV Q12H (Started 12/18/17), discontinued Zosyn (Started 12/20/17) Florastor 250mg PO BID PT/OT treatment and evaluation Status: Acute (2) Uncontrolled diabetes mellitus Assessment & Plan: HbgA1C (12/18/17): 12.3 Accuchecks ACHS Aspart 10 units ACHS Lantus 40 units HS Hypoglycemia protocol Status: Acute (3) HTN (hypertension) Assessment & Plan: BP well controlled Continue home med Lisinopril 10mg PO QD (renal protective as well) Status: Chronic (4) Prophylactic measure Assessment & Plan: I: Protonix 40mg PO QD DVT: SCD and anticoagulation contraindicated due to s/p left foot incision and drainage for left foot soft tissue emphysema POD #9 (12/18/17), to restart as per podiatry's recommendation. Patient is ambulating with physical therapy. Heart healthy, diabetic diet Pain: patient was on morphine at high doses, weaned down. Morphine 1 mg q6h and percocet 5/325 Q6H PRN pain 12/25 Morphine 1 mg q6H discontinued. Patient is on percocet 5/325 q6h today 12/26 Status: Acute Lacy Teague DO PGY1 <Janeth Hunt - Last Filed: 12/27/17 15:29> Objective - Vital Signs/Intake and Output Vital Signs (last 24 hours): Temp Pulse Resp BP Pulse Ox 98.1 F 89 20 120/77 97 12/27/17 07:43 12/27/17 07:43 12/27/17 07:43 12/27/17 07:43 12/27/17 07:43 Intake and Output: 12/27/17 12/27/17 06:59 18:59 Intake Total 650 100 Output Total 750 Balance -100 100 - Medications Medications: Current Medications Benzonatate (Tessalon Perles) 100 mg PO TID PRN PRN Reason: FOR COUGH Last Admin: 12/21/17 19:22 Dose: 100 mg Dextrose (Dextrose 50% Inj) 0 ml IVP .STAT PRN; Protocol PRN Reason: Hypoglycemia Protocol Dextrose (Glutose 15) 0 gm PO .ONCE PRN; Protocol PRN Reason: Hypoglycemia Protocol Glucagon (Glucagen Diagnostic Kit) 0 mg IM .STAT PRN; Protocol PRN Reason: Hypoglycemia Protocol Piperacillin Sod/Tazobactam (Sod 3.375 gm/ Sodium Chloride) 100 mls @ 200 mls/ hr IVPB Q8H [facility] PRN Reason: Protocol Last Admin: 12/27/17 11:36 Dose: 200 mls/hr Insulin Aspart (Novolog) 10 unit SC ACHS [facility] Last Admin: 12/27/17 11:23 Dose: Not Given Insulin Glargine (Lantus) 40 unit SC HS [facility] Oxycodone/Acetaminophen (Percocet 5/325 Mg Tab) 1 tab PO Q6H PRN PRN Reason: Pain, severe (8-10) Stop: 12/28/17 21:01 Last Admin: 12/27/17 06:18 Dose: 1 tab Pantoprazole Sodium (Protonix Ec Tab) 40 mg PO DAILY [facility] Last Admin: 12/27/17 10:08 Dose: Not Given Saccharomyces Boulardii (Florastor) 250 mg PO BID [facility] Last Admin: 12/27/17 10:08 Dose: Not Given - Labs Labs: 12/27/17 07:58 12/27/17 07:58 PT 15.0 SECONDS (9.7-12.2) H 12/17/17 22:10 INR 1.3 12/17/17 22:10 APTT 27 SECONDS (21-34) 12/17/17 22:10 Attending/Attestation - Attestation I have personally seen and examined this patient.: Yes I have fully participated in the care of the patient.: Yes I have reviewed all pertinent clinical information, including history, physical exam and plan: Yes Notes (Text): Seen and examined this morning No complain. Going for surgery today. We will increase his lantus today to improve his blood sugar control. d/w resident I agree with the resident's documentation of the assessment and the plan
[2017-12-27] MEDS: Saccharomyces Boulardi 250 mg Cap PO SCH ×2 (10:08→18:50)
[2017-12-27] MEDS: Pantoprazole 40 mg EC Tab PO SCH (10:08)
--- NOTE | 2017-12-27 12:55 | CP.PCM.PN ---
Subjective - Date & Time of Evaluation Date of Evaluation: 12/27/17 Time of Evaluation: 12:53 - Subjective Subjective: Podiatry note for Dr. Hernandez 52 year old male patient 9 days s/p LEFT foot incision and drainage was seen at bedside this morning concerning scheduled surgery InD of Left foot. AAOx3, No acute overnight distress. Dressing to Left lower extremity remains clean dry intact. He admits to mild pain to left foot when changing dressing. Patient denies of any N/V/F/C or SOB today. Patient was explained of podiatry plan of Left foot incision and drainage, patient agrees. NPO status confirmed. To OR todaY; Left foot incision and drainage Objective - Vital Signs/Intake and Output Vital Signs (last 24 hours): Temp Pulse Resp BP Pulse Ox 98.1 F 89 20 120/77 97 12/27/17 07:43 12/27/17 07:43 12/27/17 07:43 12/27/17 07:43 12/27/17 07:43 Intake and Output: 12/27/17 12/27/17 06:59 18:59 Intake Total 650 Output Total 750 Balance -100 - Medications Medications: Current Medications Benzonatate (Tessalon Perles) 100 mg PO TID PRN PRN Reason: FOR COUGH Last Admin: 12/21/17 19:22 Dose: 100 mg Dextrose (Dextrose 50% Inj) 0 ml IVP .STAT PRN; Protocol PRN Reason: Hypoglycemia Protocol Dextrose (Glutose 15) 0 gm PO .ONCE PRN; Protocol PRN Reason: Hypoglycemia Protocol Glucagon (Glucagen Diagnostic Kit) 0 mg IM .STAT PRN; Protocol PRN Reason: Hypoglycemia Protocol Piperacillin Sod/Tazobactam (Sod 3.375 gm/ Sodium Chloride) 100 mls @ 200 mls/ hr IVPB Q8H [facility] PRN Reason: Protocol Last Admin: 12/27/17 11:36 Dose: 200 mls/hr Insulin Aspart (Novolog) 10 unit SC ACHS [facility] Last Admin: 12/27/17 11:23 Dose: Not Given Insulin Glargine (Lantus) 40 unit SC HS [facility] Oxycodone/Acetaminophen (Percocet 5/325 Mg Tab) 1 tab PO Q6H PRN PRN Reason: Pain, severe (8-10) Stop: 12/28/17 21:01 Last Admin: 12/27/17 06:18 Dose: 1 tab Pantoprazole Sodium (Protonix Ec Tab) 40 mg PO DAILY [facility] Last Admin: 12/27/17 10:08 Dose: Not Given Saccharomyces Boulardii (Florastor) 250 mg PO BID [facility] Last Admin: 12/27/17 10:08 Dose: Not Given - Labs Labs: 12/27/17 07:58 12/27/17 07:58 PT 15.0 SECONDS (9.7-12.2) H 12/17/17 22:10 INR 1.3 12/17/17 22:10 APTT 27 SECONDS (21-34) 12/17/17 22:10 - Constitutional Appears: Well, Non-toxic, No Acute Distress - Head Exam Head Exam: ATRAUMATIC - Extremities Exam Additional comments: Left lower extremity exam Dressings intact - Neurological Exam Neurological Exam: Alert, Awake, Oriented x3 - Psychiatric Exam Psychiatric exam: Normal Affect, Normal Mood Assessment and Plan - Assessment and Plan (Free Text) Assessment: 52 yo male patient with chronic LEFT foot ulceration, soft tissue emphysema; 9 days s/p LEFT foot incision and drainag Plan: Patient was seen and evaluated Labs and vitals reviewed WBC 8.6, Afebrile Continue Pain medicaions Continue IV Abx Patient to be non-weight bearing to Left lower extremity NPO status confirmed No guarantees made regarding the outcome of surgery Medicine note appreciated; made aware of the surgery today Patient scheduled for Incision and drainage, debridement of non-viable tissue this afternoon with Dr. Hernandez Podiatry will continue to follow in house
[2017-12-27] MEDS ORDERED: Bupivacaine HCl 0.5% PF (10 ml) Inj ONE (15:25)
[2017-12-27] MEDS ORDERED: Midazolam 2 MG/2 ML VIAL ONE (15:31)
[2017-12-27] MEDS ORDERED: Propofol 10 mg/ml Inj (20 ML) ONE (15:32)
--- NOTE | 2017-12-27 16:57 | PCM.SURG1 ---
Surgeon's Initial Post Op Note - Surgeon's Notes Surgeon: Dr. Hernandez Senior Logistics Manager: Dr. Chris Palacios Type of Anesthesia: IV Sedation, Local Anesthesia Administered By: Dr. Phillips Pre-Operative Diagnosis: Left foot abscess Operative Findings: iodoform packing Post-Operative Diagnosis: same Operation Performed: Left foot incision and drainage Specimen/Specimens Removed: none Estimated Blood Loss: EBL {In ML}: 25 Blood Products Given: N/A Drains Used: No Drains Post-Op Condition: Good Date of Surgery/Procedure: 12/27/17 Time of Surgery/Procedure: 15:57
[2017-12-27] MEDS ORDERED: HYDROmorphone 0.5 mg/0.5 ml ISec IVP PRN (17:00)
--- NOTE | 2017-12-27 17:33 | RAD ---
PROCEDURE: Left Foot Radiographs. HISTORY: s/p left foot surgery COMPARISON: 12/18/2017 FINDINGS: BONES: Haziness about the distal 4th and 5th metatarsals raise the possibility of osteomyelitis. S/p plantar debridement. Air in the soft tissues on the plantar aspect of the foot are no longer seen. JOINTS: No significant interval change compared to the prior examination(s). SOFT TISSUES: Postoperative soft tissue plantar aspect of the foot. Considerable postoperative soft tissue with punctate foci of air are on the ventral aspect of the foot. OTHER FINDINGS: None. IMPRESSION: Satisfactory postoperative status.
[2017-12-27] MEDS ORDERED: (Lantus) Insulin Glargine, Recombinant SC SCH (22:00)
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
[2017-12-28] MEDS: Piperacillin/Tazobact 3.375 GM in Sodium Chloride 100 ML IVPB SCH ×3 (04:07→20:53)
[2017-12-28] MEDS: Oxycodone/Acetaminophen 5/325 mg Tab PO PRN ×3 (04:09→18:46)
[2017-12-28 07:00] LABS: BASO # 0.1 K/uL (0.0-0.2); BASO % 0.8 % (0.0-2.0); EOS # 0.3 K/uL (0.0-0.7); EOS % 4.1 % (0.0-4.0); HEMOGLOBIN 8.9 g/dL (12.0-18.0); LYMPH # 1.1 K/uL (1.0-4.3); LYMPH % 15.5 % (20.0-40.0); MEAN CORPUSCULAR HEMOGLOBIN 33.2 pg (27.0-31.0); MEAN CORPUSCULAR HGB CONC 34.6 g/dL (33.0-37.0); MEAN PLATELET VOLUME 6.9 fL (7.2-11.7); MONO # 0.6 K/uL (0.0-0.8); MONO % 8.6 % (0.0-10.0); RBC 2.68 Mil/uL (4.40-5.90); RED CELL DISTRIBUTION WIDTH 14.6 % (11.5-14.5)
[2017-12-28 07:12] LABS: ALB/GLOB RATIO 0.7 (1.0-2.1); ALBUMIN 2.8 g/dL (3.5-5.0); ALT/SGPT 66 U/L (21-72); AST/SGOT 35 U/L (17-59); BLOOD UREA NITROGEN 11 mg/dL (9-20); CALCIUM 8.9 mg/dl (8.6-10.4); GFR AFRICAN-AMERICAN > 60; GFR NON-AFRICAN AMERICAN > 60
[2017-12-28] MEDS: (Novolog) Insulin Aspart, Recombinant 100 u/ml 10 ml vial SC SCH (07:58)
[2017-12-28] MEDS: Saccharomyces Boulardi 250 mg Cap PO SCH ×2 (09:20→18:43)
[2017-12-28] MEDS: Pantoprazole 40 mg EC Tab PO SCH (09:20)
[2017-12-28] MEDS ORDERED: (Lantus) Insulin Glargine, Recombinant SC SCH (09:33)
[2017-12-28] MEDS ORDERED: (Novolog) Insulin Aspart, Recombinant 100 u/ml 10 ml vial SC SCH (11:30)
[2017-12-28] MEDS: (Novolin R) Insulin Human Regular 100 units/ml vial SC SCH ×5 (11:53→21:32)
--- NOTE | 2017-12-28 13:28 | PCM.OP ---
Operative Report - Operative Report Date of Surgery/Procedure: 12/27/17 Time of Surgery/Procedure: 15:30 Surgeon: Dr. Hernandez Director Of Nursing: Dr. Chris Palacios Anesthesia/Sedation: IV sedation and local Pre-Operative Diagnosis: : Left foot and leg soft tissue emphysema Post-Operative Diagnosis: same Indication for Surgery: Indications: The patient is a 52 year-old male with the above diagnoses. The patient has exhausted all conservative treatment at this time and now requires surgical intervention. The patient undergone same Incision and drainage procedure on 12-18-17 and is back to OR for another procedure due to continued expression of purulent discharge form Left foot. The patient signed the consent after careful explanation of risks, benefits, complication and alternatives for surgical procedure. No guarantees were given nor implied. NPO status was confirmed prior to taking patient to the OR. Operative Findings: Preparation: The patient was brought in to the operating room and placed on the operating room table in a supine position. Timeout was performed for identification of the correct patient and procedure. After induction of general anesthesia, the left lower extremity was then prepped and draped in normal sterile manner and the procedure began. No tourniquet was used during the procedure. Procedure/Operation Description: Procedure: Left foot and leg incision and drainage with excisional debridement of non-viable tissue using Misonix device. Attention was then directed to the dorsal aspect of the Left foot between 2nd and 3rd metatarsals where approximately 6cm linear longitudinal incision was noted. All sutures were removed. Upon palpation of the Left foot, 4 cc of purulent drainage was noted from the dorsal incision. Utilizing Misonix handpiece with power setting at 7, non-viable soft-tissue was gently excised. After all the non-viable soft tissue was adequately excised and debrided, healthy bleeding was noted from the area of debridement. Attention was then directed to the 2cm incision site on the dorsal aspect of the Left foot between 4th and 5th MTPJ. Upon palpation of the Left foot, 3 cc of purulent drainage was noted from the dorsal incision. Utilizing Misonix handpiece with power setting at 7, non-viable soft-tissue was gently excised. After all the non- viable soft tissue was adequately excised and debrided, healthy bleeding was noted from the area of debridement. Attention was then directed to the medial aspect of the Left foot just proximal to metatarsophalangeal joint where approximately 5cm linear longitudinal incision was noted. All sutures were removed. Upon palpation of the Left foot,3 cc of purulent drainage was noted from the medial incision. Utilizing Misonix handpiece with power setting at 7, non-viable soft-tissue was gently excised. After all the non-viable soft tissue was adequately excised and debrided, healthy bleeding was noted from the area of debridement. Attention was then directed to the plantar aspect of the Left mid foot where an approximately 6cm linear longitudinal incision was noted, including the ulceration in the middle. All sutures were removed. Upon palpation of the Left foot, 3 cc of purulent drainage was noted from the plantar incision. Utilizing Misonix handpiece with power setting at 7, non- viable soft-tissue was gently excised. After all the non-viable soft tissue was adequately excised and debrided, healthy bleeding was noted from the area of debridement. Attention was then directed to the lateral aspect of the Left leg just proximal to ankle joint where approximately 7cm linear longitudinal incision was noted. All sutures were removed. Upon palpation of the Left foot and leg, no purulent drainage was noted from this incision site. Utilizing Misonix handpiece with power setting at 7, non-viable soft-tissue was gently excised. After all the non-viable soft tissue was adequately excised and debrided, healthy bleeding was noted from the area of debridement. Utilizing Pulse Lavage, all five incision sites were copiously irrigated with mix of saline and bacitracin antibiotic. The two dorsal wounds were packed with 1/4 inch iodine packing strips, and were partially sutured with #3-0 Prolene with openings in the middle. All other incision sites were primarily closed with #3- 0 Prolene in simple suture technique. The Left foot was then dressed with Betadine soaked adaptic, 4x4 gauze, ABD pads, Kerlix and MILAGROS bandage. The attending was present during the entire case. Estimated Blood Loss: 30mL Complications: none Discharge & Condition: Postoperative Condition: The patient tolerated the anesthesia and procedure well and was escorted to the recovery room with vital signs stable and neurovascular status intact to the Left foot. Patient will go back to the floor for continued IV abx treatment.
--- NOTE | 2017-12-28 21:26 | CP.PCM.PN ---
Subjective - Date & Time of Evaluation Date of Evaluation: 12/28/17 Time of Evaluation: 09:23 - Subjective Subjective: Podiatry note for Dr. Hernandez 52 year old male patient 9 days s/p LEFT foot incision and drainage and one day s/p repeat left foot incision and drainage was seen at bedside this morning. Patient was AAO x 3 and NAD at time of visit. Denies any acute overnight events. States that pain is well controlled and that he has remained NWB. Denies any further pedal complaints. Denies N/V/F/C/CP/SOB/D/posterior calf pain Objective - Vital Signs/Intake and Output Vital Signs (last 24 hours): Temp Pulse Resp BP Pulse Ox 98.1 F 92 H 20 112/69 99 12/28/17 15:31 12/28/17 15:31 12/28/17 15:31 12/28/17 15:31 12/28/17 15:31 Intake and Output: 12/28/17 12/29/17 18:59 06:59 Intake Total 650 Balance 650 - Medications Medications: Current Medications Benzonatate (Tessalon Perles) 100 mg PO TID PRN PRN Reason: FOR COUGH Last Admin: 12/21/17 19:22 Dose: 100 mg Dextrose (Dextrose 50% Inj) 0 ml IVP .STAT PRN; Protocol PRN Reason: Hypoglycemia Protocol Dextrose (Glutose 15) 0 gm PO .ONCE PRN; Protocol PRN Reason: Hypoglycemia Protocol Docusate Sodium (Colace) 100 mg PO DAILY [facility] Last Admin: 12/28/17 09:20 Dose: 100 mg Glucagon (Glucagen Diagnostic Kit) 0 mg IM .STAT PRN; Protocol PRN Reason: Hypoglycemia Protocol Heparin Sodium (Porcine) (Heparin) 5,000 units SC Q8 [facility] Last Admin: 12/28/17 13:34 Dose: 5,000 units Piperacillin Sod/Tazobactam (Sod 3.375 gm/ Sodium Chloride) 100 mls @ 200 mls/ hr IVPB Q8H [facility] PRN Reason: Protocol Last Admin: 12/28/17 20:53 Dose: 200 mls/hr Insulin Human NPH (Novolin N) 34 unit SC HS [facility] Insulin Human Regular (Novolin R) 12 unit SC AC [facility] Last Admin: 12/28/17 17:10 Dose: 12 unit Insulin Human Regular (Novolin R) 0 unit SC ACHS [facility] Last Admin: 12/28/17 17:10 Dose: Not Given Pantoprazole Sodium (Protonix Ec Tab) 40 mg PO DAILY [facility] Last Admin: 12/28/17 09:20 Dose: 40 mg Saccharomyces Boulardii (Florastor) 250 mg PO BID [facility] Last Admin: 12/28/17 18:43 Dose: 250 mg - Labs Labs: 12/28/17 06:44 12/28/17 06:44 PT 15.0 SECONDS (9.7-12.2) H 12/17/17 22:10 INR 1.3 12/17/17 22:10 APTT 27 SECONDS (21-34) 12/17/17 22:10 - Constitutional Appears: Well, Non-toxic, No Acute Distress - Extremities Exam Additional comments: Left lower extremity exam DERM: Dorsal, medial and plantar incisions measuring roughly 5 cm in length appreciated as well as roughly 7 cm lateral ankle incision. All skin edges well coapted and all sutures intact. Packing noted to be communicating between the plantar and medial incision sites. No erythema, malodor, purulent drainage or other clinical signs of infection noted at this time. VASC: Non-palpable DP/PT noted secondary to edema. SHEET HANGER less than 3 seconds noted to all digits NEURO: Gross sensation intact ORTHO: Minimal pain on palpation to Left foot, Passive ROM to joints cannot be tested due to guarding - Neurological Exam Neurological Exam: Alert, Awake, Oriented x3 - Psychiatric Exam Psychiatric exam: Normal Affect, Normal Mood Assessment and Plan - Assessment and Plan (Free Text) Assessment: 52 year old male patient 9 days s/p LEFT foot incision and drainage and one day s/p repeat left foot incision and drainage was seen at bedside this morning. Plan: Patient seen and evaluated at bedside Afebrile, absent leukocytosis Plan discussed with Dr. Hernandez Ankle and tib/fib xrays ordered to rule out soft tissue emphysema Packing removed from surgical site Wounds dressed with betadine soaked gauze, ABD, kirlix and light MILAGROS Patient to remain NWB for time being No further surgical intervention planned at this time Following discharge patient will follow up in Dr. Hernandez's clinic for wound care Podiatry will continue to follow while patient in house
[2017-12-28] MEDS ORDERED: (Novolin N) Insulin Human Isophane (NPH) 100 u/ml 10 ml vial SC SCH (22:00)
--- NOTE | 2017-12-29 00:20 | CON ---
DATE: 12/28/2017 ENDOCRINOLOGY CONSULT LOCATION: Room 370. HISTORY OF PRESENT ILLNESS: This is a 52-year-old male with known history of type 2 insulin requiring diabetes, presenting her with the left foot neuropathic ulceration and is now being referred for endocrine evaluation because of recent hyperglycemic accelerations as noted thereof. PAST MEDICAL HISTORY: History of type 2 insulin requiring diabetes, previously on a combination of NPH given as 12 units twice daily as noted, history of hypertension, and dyslipidemia. FAMILY HISTORY: Positive for diabetes and hypertension. SOCIAL HISTORY: The patient has a supportive family. No known substance use. REVIEW OF SYSTEMS: Admits to generalized body weakness with easy fatigability and tiredness with suboptimal energy level. Also admits to episodic dizziness and lightheadedness, worse in the last 2 to 3 days prior to admission. No chest pain or palpitations or PNDs. His oral intake has been variable with nausea and dyspepsia and admits to marked polyuria, nocturia and polydipsia. Also admits to lower extremity paresthesias, especially nocturnally. PHYSICAL EXAMINATION: GENERAL: This is an average built male in no apparent distress. VITAL SIGNS: Blood pressure of 140/90, pulse of 70 beats per minute and regular, temperature 99, respirations 20, height is 5 feet 3 inches, weight is 140 pounds. HEENT: Head normocephalic. Eyes anicteric with pink conjunctivae. Funduscopy is not possible at this time. Ears, nose and throat, otherwise, normal. NECK: Supple. Thyroid gland is normal in size. No carotid bruits or cervical adenopathy. CARDIOPULMONARY: Some adynamic precordium. S1, S2, is rapid and regular. LUNGS: Clear to auscultation. ABDOMEN: Flat, soft with positive bowel sounds. EXTREMITIES: There is a neuropathic ulceration in the dorsal lateral aspect of the left foot as noted. Pulses are diminished peripherally. LABORATORIES: Chemistries with a BUN of 11, sodium 133, potassium 4.2, chloride 96, CO2 of 28, glucose 477, creatinine 0.7. His glucose levels are ranging from 289 to 485 mg/dL. ASSESSMENT: This is a 52-year-old male with uncontrolled and decompensated type 2 insulin requiring diabetes, presented here with a nonhealing neuropathic left foot ulceration and supervening hyperglycemic accelerations, related to subtherapeutic insulin regimen. PLAN OF MANAGEMENT: We will modify his current insulin regimen and switch him over to a more affordable conventional insulin regimen because of his lack of medical insurance and financial constraints. We will discontinue the Lantus and the NovoLog insulin as ordered and switch him over to Novolin NPH given as 34 units subcu at bedtime daily to start tonight. We will also add Novolin regular insulin given as 12 units subcu t.i.d. before meals to start at lunch time today as ordered. We will modify the coverage scale to obviate hypoglycemia and detailed orders have been given. We will obtain serial chemistries and supplements accordingly as needed. We will also obtain a hemoglobin A1c to confirm his prior glycemic control and baseline lipid panel and thyroid studies will be ordered. We will follow and advise accordingly. Celia Mcconnell MD
--- NOTE | 2017-12-29 02:22 | CP.PCM.PN ---
<Regi Selby - Last Filed: 12/29/17 02:14> Subjective - Date & Time of Evaluation Date of Evaluation: 12/29/17 Time of Evaluation: 02:14 - Subjective Subjective: Medicine progress note for Dr. Hunt's service Patient was seen and examined at bedside in no acute distress. Patient reports he no longer feels constipated and had two normal BM. Patient states he still has pain in his left foot s/p surgery. Patient tolerating diet, stating he is eating more than usual. Patient denies chest pain, dyspnea, abdominal pain, nausea, vomiting, fevers, headaches, dysuria. Objective - Vital Signs/Intake and Output Vital Signs (last 24 hours): Temp Pulse Resp BP Pulse Ox 98.1 F 92 H 20 112/69 99 12/28/17 15:31 12/28/17 15:31 12/28/17 15:31 12/28/17 15:31 12/28/17 15:31 Intake and Output: 12/28/17 12/29/17 18:59 06:59 Intake Total 650 650 Balance 650 650 - Medications Medications: Current Medications Benzonatate (Tessalon Perles) 100 mg PO TID PRN PRN Reason: FOR COUGH Last Admin: 12/21/17 19:22 Dose: 100 mg Dextrose (Dextrose 50% Inj) 0 ml IVP .STAT PRN; Protocol PRN Reason: Hypoglycemia Protocol Dextrose (Glutose 15) 0 gm PO .ONCE PRN; Protocol PRN Reason: Hypoglycemia Protocol Docusate Sodium (Colace) 100 mg PO DAILY [facility] Last Admin: 12/28/17 09:20 Dose: 100 mg Glucagon (Glucagen Diagnostic Kit) 0 mg IM .STAT PRN; Protocol PRN Reason: Hypoglycemia Protocol Heparin Sodium (Porcine) (Heparin) 5,000 units SC Q8 [facility] Last Admin: 12/28/17 21:29 Dose: 5,000 units Piperacillin Sod/Tazobactam (Sod 3.375 gm/ Sodium Chloride) 100 mls @ 200 mls/ hr IVPB Q8H [facility] PRN Reason: Protocol Last Admin: 12/28/17 20:53 Dose: 200 mls/hr Insulin Human NPH (Novolin N) 34 unit SC HS [facility] Last Admin: 12/28/17 21:31 Dose: 34 unit Insulin Human Regular (Novolin R) 0 unit SC ACHS [facility] Last Admin: 12/28/17 21:32 Dose: Not Given Insulin Human Regular (Novolin R) 14 unit SC AC [facility] Oxycodone/Acetaminophen (Percocet 5/325 Mg Tab) 1 tab PO Q6H PRN PRN Reason: Pain, severe (8-10) Stop: 01/01/18 00:53 Pantoprazole Sodium (Protonix Ec Tab) 40 mg PO DAILY [facility] Last Admin: 12/28/17 09:20 Dose: 40 mg Saccharomyces Boulardii (Florastor) 250 mg PO BID [facility] Last Admin: 12/28/17 18:43 Dose: 250 mg - Labs Labs: 12/28/17 06:44 12/28/17 06:44 PT 15.0 SECONDS (9.7-12.2) H 12/17/17 22:10 INR 1.3 12/17/17 22:10 APTT 27 SECONDS (21-34) 12/17/17 22:10 - Additional Findings Additional findings: - Constitutional Appears: Non-toxic, No Acute Distress - Head Exam Head Exam: ATRAUMATIC, NORMAL INSPECTION, NORMOCEPHALIC - Eye Exam Eye Exam: EOMI, Normal appearance Pupil Exam: NORMAL ACCOMODATION, PERRL - ENT Exam ENT Exam: Mucous Membranes Moist, Normal Exam - Neck Exam Neck Exam: Full ROM, Normal Inspection - Respiratory Exam Respiratory Exam: Clear to Ausculation Bilateral, NORMAL BREATHING PATTERN. absent: Accessory Muscle Use - Cardiovascular Exam Cardiovascular Exam: REGULAR RHYTHM, +S1, +S2. absent: Bradycardia, Tachycardia - GI/Abdominal Exam GI & Abdominal Exam: Soft, Normal Bowel Sounds. absent: Tenderness - Extremities Exam Extremities Exam: Left LE- bandage clean, dry, intact. Full ROM, sensation intact. absent: Pedal Edema - Back Exam Back Exam: Full ROM, NORMAL INSPECTION - Neurological Exam Neurological Exam: Alert, Awake, CN II-XII Intact, Oriented x3 - Psychiatric Exam Psychiatric exam: Normal Affect, Normal Mood - Skin Skin Exam: Dry, Intact, Normal Color, Warm Assessment and Plan - Assessment and Plan (Free Text) Plan: 52M with past medical history of DM, HTN, and history of left foot ulceration treated in 04/2017 presents with left foot ulcer with soft tissue emphysema s/p left foot I&D (12/18/17); s/p left foot incision, drainage and debridement of non- viable tissue on 12/27/[address] Hernandez (1) Diabetic foot ulcers Assessment & Plan: Podiatry: Dr. Hernandez * S/p bedside incision and drainage 12/18/17 * S/p left foot incision and drainage for left foot soft tissue emphysema 12/18/17 * s/p left foot incision, drainage and debridement of non-viable tissue on with Dr. Hernandez * wound care and pain management as per podiatry team ID: Dr. Brooks, hermes mckoy - suggested to have CTA and vascular eval (+) Leukocytosis, stable * Infectious Disease consult: Dr Brooks * Blood culture negative at 3 days x2 * Left foot wound culture:Proteus Mirabilis and Group G Strep Imaging: * X-ray left foot - gas emphysema noted dorsum and plantar aspect of mid-foot * Left foot X-rays s/p bedside I&D (12/18/17): Postsurgical changes with subcutaneous emphysema seen. Focal osteopenia in the 4th and 5th metatarsal heads may reflect underlying osteomyelitis. * Left foot X-rays left tib-fib (12/18/17): Subcutaneous emphysema is seen tracking along the lateral lower extremity. * Left foot X-ray (12/17/17): Extensive left forefoot subcutaneous gas and poor visualization of the 4th metatarsal head is likely related to osteomyelitis and soft tissue abscess. * MRI to assess for osteomyelitis - Findings consistent with osteomyelitis involving the distal portion and the head of the 4th metatarsal and also involving the proximal phalanx of the 4th toe. * Suspicious for septic arthritis of the 4th metatarsophalangeal joint. * Bone marrow edema and questionable small erosion noted at the head of the 3rd metatarsal bone may represent an early osteomyelitis. * Mild bone marrow edema noted at the proximal phalanx of the 3rd and 5th toe likely represent reactive changes due to hyperemia. * Diffuse soft tissue infection/inflammatory process at the lateral distal portion of the left foot associated with foci of air in the subcutaneous and deep soft tissue. The possibility of small abscess formation cannot be totally excluded in this noncontrast enhanced study. * Soft tissue edema and diffuse myositis at the mid and distal portion of the left foot. * As per podiatry note (12/20/17): Patient was informed of the MRI result with possible treatment options. Amputation of left 3rd 4th 5th rays discussed, which patient adamantly refused. * JASPER/PVR: Right JASPER non diagnostic due to arterial wall calcification, PVR waveforms show normal arterial perfusion to bilateral lower extremities at rest , normal toe brachial indexes left JASPER non diagnostic due to arterial wall calcification. PVR waveforms have normal arterial perfusion to bilateral lower extremities at restl normal toe brachial indexes. recommend CTA Medication/Management: Pain: patient was on morphine at high doses, weaned down. Continue Percocet 5/325 q6h (started on 12/26) Zosyn (Started 12/20/17) Florastor 250mg PO BID PT/OT treatment and evaluation PICC line placed on 12/23 Discontinued: Meropenem 500mg IV Q6H (Started 12/18/17), Vancomycin 1g IV Q12H ( Started 12/18/17) (2) Uncontrolled diabetes mellitus Assessment & Plan: Endocrinology consults, Dr. Celaya, help appreciated HbgA1C (12/18/17): 12.3 Accuchecks ACHS Novolin 34 units HS Novolin 14 units AC Hypoglycemia protocol (3) HTN (hypertension) Assessment & Plan: BP well controlled Continue home med Lisinopril 10mg PO QD (renal protective as well) (4) Prophylactic measure Assessment & Plan: Protonix 40mg PO QD DVT: SCD and Heparin SC Physical therapy Heart healthy, diabetic diet Colace 100mg PO for constipation <Janeth Hunt - Last Filed: 12/29/17 16:00> Objective - Vital Signs/Intake and Output Vital Signs (last 24 hours): Temp Pulse Resp BP Pulse Ox 98.7 F 89 20 128/74 98 12/29/17 08:08 12/29/17 08:08 12/29/17 08:08 12/29/17 08:08 12/29/17 08:08 Intake and Output: 12/29/17 12/29/17 06:59 18:59 Intake Total 650 Balance 650 - Medications Medications: Current Medications Benzonatate (Tessalon Perles) 100 mg PO TID PRN PRN Reason: FOR COUGH Last Admin: 12/21/17 19:22 Dose: 100 mg Dextrose (Dextrose 50% Inj) 0 ml IVP .STAT PRN; Protocol PRN Reason: Hypoglycemia Protocol Dextrose (Glutose 15) 0 gm PO .ONCE PRN; Protocol PRN Reason: Hypoglycemia Protocol Docusate Sodium (Colace) 100 mg PO DAILY [facility] Last Admin: 12/29/17 09:22 Dose: 100 mg Glucagon (Glucagen Diagnostic Kit) 0 mg IM .STAT PRN; Protocol PRN Reason: Hypoglycemia Protocol Heparin Sodium (Porcine) (Heparin) 5,000 units SC Q8 [facility] Last Admin: 12/29/17 13:20 Dose: 5,000 units Piperacillin Sod/Tazobactam Sod (Zosyn 3.375 Gm Iv Premix) 3.375 gm in 50 mls @ 100 mls/hr IVPB Q8H [facility] PRN Reason: Protocol Last Admin: 12/29/17 13:24 Dose: 100 mls/hr Insulin Human NPH (Novolin N) 40 unit SC HS [facility] Insulin Human Regular (Novolin R) 0 unit SC ACHS [facility] Last Admin: 12/29/17 12:15 Dose: Not Given Insulin Human Regular (Novolin R) 14 unit SC AC [facility] Last Admin: 12/29/17 11:30 Dose: 14 unit Oxycodone/Acetaminophen (Percocet 5/325 Mg Tab) 1 tab PO Q6H PRN PRN Reason: Pain, severe (8-10) Stop: 01/01/18 00:53 Last Admin: 12/29/17 09:57 Dose: 1 tab Pantoprazole Sodium (Protonix Ec Tab) 40 mg PO DAILY [facility] Last Admin: 12/29/17 09:55 Dose: 40 mg Saccharomyces Boulardii (Florastor) 250 mg PO BID [facility] Last Admin: 12/29/17 09:22 Dose: 250 mg - Labs Labs: 12/29/17 06:31 12/29/17 06:31 PT 15.0 SECONDS (9.7-12.2) H 12/17/17 22:10 INR 1.3 12/17/17 22:10 APTT 27 SECONDS (21-34) 12/17/17 22:10 Attending/Attestation - Attestation I have personally seen and examined this patient.: Yes I have fully participated in the care of the patient.: Yes I have reviewed all pertinent clinical information, including history, physical exam and plan: Yes Notes (Text): Seen and examined. He has no complain. He said that he appreciate the care given to him at [facility]. No fever,no leukocytosis, Hb 8.4. Monitor blood sugar.Dr celaya's recommendation appreciated s/p I and D on Saturday. 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 NWB left leg. Continue zosyn .Patient has picc line. CW to arrange out pt antibiotic treatment I agree with the documentation of the resident's assessment and the plan
[2017-12-29] MEDS: Oxycodone/Acetaminophen 5/325 mg Tab PO PRN ×2 (04:14→09:57)
[2017-12-29] MEDS: Piperacill/Tazo 3.375gm in Dex 3.375 GM/50 ML BAG IVPB SCH ×3 (05:39→21:56)
[2017-12-29 06:47] LABS: BASO # 0.1 K/uL (0.0-0.2); BASO % 1.2 % (0.0-2.0); EOS # 0.3 K/uL (0.0-0.7); EOS % 4.9 % (0.0-4.0); HEMOGLOBIN 8.4 g/dL (12.0-18.0); LYMPH # 2.1 K/uL (1.0-4.3); LYMPH % 29.7 % (20.0-40.0); MEAN CELL VOLUME 96.4 fL (80.0-94.0); MEAN CORPUSCULAR HEMOGLOBIN 32.8 pg (27.0-31.0); MEAN CORPUSCULAR HGB CONC 34.1 g/dL (33.0-37.0); MEAN PLATELET VOLUME 6.9 fL (7.2-11.7); MONO # 0.7 K/uL (0.0-0.8); MONO % 9.8 % (0.0-10.0); NEUT # 3.9 K/uL (1.8-7.0); NEUT % 54.4 % (50.0-75.0); NRBC % 0.1 % (0.0-2.0); RBC 2.56 Mil/uL (4.40-5.90); RED CELL DISTRIBUTION WIDTH 14.5 % (11.5-14.5); WHITE BLOOD COUNT 7.1 K/uL (4.8-10.8)
[2017-12-29 06:48] LABS: ALB/GLOB RATIO 0.7 (1.0-2.1); ALBUMIN 2.8 g/dL (3.5-5.0); ALT/SGPT 48 U/L (21-72); AST/SGOT 15 U/L (17-59); BLOOD UREA NITROGEN 11 mg/dL (9-20); CALCIUM 8.8 mg/dl (8.6-10.4); GFR AFRICAN-AMERICAN > 60; GFR NON-AFRICAN AMERICAN > 60; HDL CHOLESTEROL 36 mg/dL (30-70)
[2017-12-29 06:58] LABS: LDL CHOLESTEROL 62 mg/dL (0-129)
[2017-12-29] MEDS: (Novolin R) Insulin Human Regular 100 units/ml vial SC SCH ×7 (07:30→21:54)
[2017-12-29] MEDS: Saccharomyces Boulardi 250 mg Cap PO SCH ×2 (09:22→17:53)
[2017-12-29] MEDS: Pantoprazole 40 mg EC Tab PO SCH (09:55)
--- NOTE | 2017-12-29 10:52 | RAD ---
PROCEDURE: Radiographs of the left tibia and fibula. HISTORY: R/o soft tissue emphysema/OM COMPARISON: None available. TECHNIQUE: Frontal and lateral views obtained. FINDINGS: BONES: No fracture or destructive lesion. JOINT SPACES: Unremarkable. OTHER FINDINGS: No subcutaneous emphysema evident. Bandages note about distal aspect of leg. IMPRESSION: No subcutaneous emphysema identified.
--- NOTE | 2017-12-29 10:53 | RAD ---
PROCEDURE: Left Ankle Radiographs. HISTORY: R/o soft tissue emphysema/OM COMPARISON: None FINDINGS: BONES: Normal. No fracture. JOINTS: Normal. No osteoarthritis. Ankle mortise maintained. Talar dome intact SOFT TISSUES: No subcutaneous emphysema. Bandage noted about distal aspect of tibia and fibula. Vascular calcification noted. . OTHER FINDINGS: None. IMPRESSION: No subcutaneous emphysema identified.
--- NOTE | 2017-12-29 15:00 | CP.PCM.PN ---
Subjective - Date & Time of Evaluation Date of Evaluation: 12/29/17 Time of Evaluation: 14:57 - Subjective Subjective: Podiatry note for Dr. Hernandez 52 year old male patient 10 days s/p LEFT foot incision and drainage and one day s/p repeat left foot incision and drainage was seen at bedside this morning. Patient was AAO x 3 and NAD at time of visit. Denies any acute overnight events. States that pain is well controlled and that he has remained NWB. Denies any further pedal complaints. Denies N/V/F/C/CP/SOB/D/posterior calf pain Objective - Vital Signs/Intake and Output Vital Signs (last 24 hours): Temp Pulse Resp BP Pulse Ox 98.7 F 89 20 128/74 98 12/29/17 08:08 12/29/17 08:08 12/29/17 08:08 12/29/17 08:08 12/29/17 08:08 Intake and Output: 12/29/17 12/29/17 06:59 18:59 Intake Total 650 Balance 650 - Medications Medications: Current Medications Benzonatate (Tessalon Perles) 100 mg PO TID PRN PRN Reason: FOR COUGH Last Admin: 12/21/17 19:22 Dose: 100 mg Dextrose (Dextrose 50% Inj) 0 ml IVP .STAT PRN; Protocol PRN Reason: Hypoglycemia Protocol Dextrose (Glutose 15) 0 gm PO .ONCE PRN; Protocol PRN Reason: Hypoglycemia Protocol Docusate Sodium (Colace) 100 mg PO DAILY [facility] Last Admin: 12/29/17 09:22 Dose: 100 mg Glucagon (Glucagen Diagnostic Kit) 0 mg IM .STAT PRN; Protocol PRN Reason: Hypoglycemia Protocol Heparin Sodium (Porcine) (Heparin) 5,000 units SC Q8 [facility] Last Admin: 12/29/17 13:20 Dose: 5,000 units Piperacillin Sod/Tazobactam Sod (Zosyn 3.375 Gm Iv Premix) 3.375 gm in 50 mls @ 100 mls/hr IVPB Q8H [facility] PRN Reason: Protocol Last Admin: 12/29/17 13:24 Dose: 100 mls/hr Insulin Human NPH (Novolin N) 40 unit SC HS [facility] Insulin Human Regular (Novolin R) 0 unit SC ACHS [facility] Last Admin: 12/29/17 12:15 Dose: Not Given Insulin Human Regular (Novolin R) 14 unit SC AC [facility] Last Admin: 12/29/17 11:30 Dose: 14 unit Oxycodone/Acetaminophen (Percocet 5/325 Mg Tab) 1 tab PO Q6H PRN PRN Reason: Pain, severe (8-10) Stop: 01/01/18 00:53 Last Admin: 12/29/17 09:57 Dose: 1 tab Pantoprazole Sodium (Protonix Ec Tab) 40 mg PO DAILY [facility] Last Admin: 12/29/17 09:55 Dose: 40 mg Saccharomyces Boulardii (Florastor) 250 mg PO BID [facility] Last Admin: 12/29/17 09:22 Dose: 250 mg - Labs Labs: 12/29/17 06:31 12/29/17 06:31 PT 15.0 SECONDS (9.7-12.2) H 12/17/17 22:10 INR 1.3 12/17/17 22:10 APTT 27 SECONDS (21-34) 12/17/17 22:10 - Constitutional Appears: Well, Non-toxic, No Acute Distress - Extremities Exam Additional comments: Left lower extremity exam DERM: Dorsal, medial and plantar incisions measuring roughly 5 cm in length appreciated as well as roughly 7 cm lateral ankle incision. All skin edges well coapted and all sutures intact. Site where packing was previous pulled from was noted to be macerated. No erythema, malodor, purulent drainage or other clinical signs of infection noted at this time. VASC: Non-palpable DP/PT noted secondary to edema. 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 noted to all digits NEURO: Gross sensation intact ORTHO: Minimal pain on palpation to Left foot, Passive ROM to joints cannot be tested due to guarding - Neurological Exam Neurological Exam: Alert, Awake, Oriented x3 - Psychiatric Exam Psychiatric exam: Normal Affect, Normal Mood Assessment and Plan - Assessment and Plan (Free Text) Assessment: 52 year old male patient 10 days s/p LEFT foot incision and drainage and 2 days s/p repeat left foot incision and drainage was seen at bedside this morning Plan: Patient seen and evaluated at bedside Afebrile, absent leukocytosis Plan discussed with Dr. Hernandez Ankle and tib/fib xrays both negative for soft tissue emphysema Packing removed from surgical site Wounds dressed with betadine soaked gauze, ABD, kirlix and light MILAGROS Patient to remain STRICTLY NWB for time being No further surgical intervention planned at this time Following discharge patient will follow up in Dr. Hernandez's clinic for wound care Podiatry will continue to follow while patient in house
--- NOTE | 2017-12-29 15:35 | PN ---
DATE: LOCATION: Room 370. SUBJECTIVE: This is a 52-year-old male with recent uncontrolled type 2 insulin-requiring diabetes, currently undergoing IV antibiotic management for left foot neuropathic ulceration and local debridement and he is being followed closely for metabolic management. His glycemic levels are fluctuating, but improved and the latest glucose levels have ranged from 108 to 302 mg/dL. It was 255 at bedtime last night. The latest chemistries showed BUN of 11, sodium 136, potassium 4.1, chloride 99, CO2 26, glucose 278, and creatinine is 0.6. PLAN: So at this time, we will modify once again his basal and bolus insulin regimen and increase the NPH to 40 units subcu at bedtime daily, to start tonight. We will also continue the Humalog and NovoLog given as 14 units subcu t.i.d. before meals as ordered. We will titrate incrementally as indicated to optimize metabolic control. We will also add oral hypoglycemic therapy with glipizide given as 10 mg b.i.d. before meals as ordered. We will follow and advise accordingly. Celia Mcconnell MD
--- NOTE | 2017-12-29 16:32 | CP.PCM.PN ---
Subjective - Date & Time of Evaluation Date of Evaluation: 12/29/17 Time of Evaluation: 10:00 - Subjective Subjective: events noted iv rx reordered Objective - Vital Signs/Intake and Output Vital Signs (last 24 hours): Temp Pulse Resp BP Pulse Ox 98.7 F 89 20 128/74 98 12/29/17 08:08 12/29/17 08:08 12/29/17 08:08 12/29/17 08:08 12/29/17 08:08 Intake and Output: 12/29/17 12/29/17 06:59 18:59 Intake Total 650 Balance 650 - Medications Medications: Current Medications Benzonatate (Tessalon Perles) 100 mg PO TID PRN PRN Reason: FOR COUGH Last Admin: 12/21/17 19:22 Dose: 100 mg Dextrose (Dextrose 50% Inj) 0 ml IVP .STAT PRN; Protocol PRN Reason: Hypoglycemia Protocol Dextrose (Glutose 15) 0 gm PO .ONCE PRN; Protocol PRN Reason: Hypoglycemia Protocol Docusate Sodium (Colace) 100 mg PO Q12 PRN PRN Reason: Constipation Glucagon (Glucagen Diagnostic Kit) 0 mg IM .STAT PRN; Protocol PRN Reason: Hypoglycemia Protocol Heparin Sodium (Porcine) (Heparin) 5,000 units SC Q8 [facility] Last Admin: 12/29/17 13:20 Dose: 5,000 units Piperacillin Sod/Tazobactam Sod (Zosyn 3.375 Gm Iv Premix) 3.375 gm in 50 mls @ 100 mls/hr IVPB Q8H [facility] PRN Reason: Protocol Last Admin: 12/29/17 13:24 Dose: 100 mls/hr Insulin Human NPH (Novolin N) 40 unit SC HS [facility] Insulin Human Regular (Novolin R) 0 unit SC ACHS [facility] Last Admin: 12/29/17 12:15 Dose: Not Given Insulin Human Regular (Novolin R) 14 unit SC AC [facility] Last Admin: 12/29/17 11:30 Dose: 14 unit Oxycodone/Acetaminophen (Percocet 5/325 Mg Tab) 1 tab PO Q6H PRN PRN Reason: Pain, severe (8-10) Stop: 01/01/18 00:53 Last Admin: 12/29/17 09:57 Dose: 1 tab Pantoprazole Sodium (Protonix Ec Tab) 40 mg PO DAILY [facility] Last Admin: 12/29/17 09:55 Dose: 40 mg Saccharomyces Boulardii (Florastor) 250 mg PO BID [facility] Last Admin: 12/29/17 09:22 Dose: 250 mg - Labs Labs: 12/29/17 06:31 12/29/17 06:31 PT 15.0 SECONDS (9.7-12.2) H 12/17/17 22:10 INR 1.3 12/17/17 22:10 APTT 27 SECONDS (21-34) 12/17/17 22:10 - Constitutional Appears: Non-toxic, Chronically Ill - Head Exam Head Exam: NORMOCEPHALIC - Eye Exam Eye Exam: absent: Scleral icterus - ENT Exam ENT Exam: Mucous Membranes Dry - Neck Exam Neck Exam: absent: Lymphadenopathy - Respiratory Exam Respiratory Exam: Decreased Breath Sounds - GI/Abdominal Exam GI & Abdominal Exam: Distended - Rectal Exam Rectal Exam: Deferred Assessment and Plan (1) Diabetic foot ulcers Status: Acute (2) Alcohol abuse Status: Acute (3) Osteomyelitis Status: Acute (4) Osteomyelitis Status: Acute
[2017-12-29] MEDS ORDERED: (Novolin N) Insulin Human Isophane (NPH) 100 u/ml 10 ml vial SC SCH (22:00)
[2017-12-30] MEDS: Piperacill/Tazo 3.375gm in Dex 3.375 GM/50 ML BAG IVPB SCH ×3 (05:22→21:02)
[2017-12-30] MEDS: Oxycodone/Acetaminophen 5/325 mg Tab PO PRN ×2 (05:41→11:34)
[2017-12-30 06:47] LABS: BASO # 0.1 K/uL (0.0-0.2); BASO % 1.3 % (0.0-2.0); EOS # 0.3 K/uL (0.0-0.7); EOS % 4.8 % (0.0-4.0); HEMOGLOBIN 8.4 g/dL (12.0-18.0); LYMPH # 2.1 K/uL (1.0-4.3); MEAN CELL VOLUME 96.2 fL (80.0-94.0); MEAN CORPUSCULAR HEMOGLOBIN 33.2 pg (27.0-31.0); MEAN CORPUSCULAR HGB CONC 34.5 g/dL (33.0-37.0); MEAN PLATELET VOLUME 7.1 fL (7.2-11.7); MONO # 0.7 K/uL (0.0-0.8); MONO % 10.4 % (0.0-10.0); NEUT # 3.5 K/uL (1.8-7.0); NEUT % 52.5 % (50.0-75.0); NRBC % 0.1 % (0.0-2.0); RBC 2.53 Mil/uL (4.40-5.90); RED CELL DISTRIBUTION WIDTH 14.5 % (11.5-14.5); WHITE BLOOD COUNT 6.7 K/uL (4.8-10.8)
--- NOTE | 2017-12-30 07:20 | CP.PCM.PN ---
Subjective - Date & Time of Evaluation Date of Evaluation: 12/30/17 Time of Evaluation: 07:18 - Subjective Subjective: Podiatry note for Dr. Hernandez 52 year old male patient 11 days s/p LEFT foot incision and drainage and 3 days s/p repeat left foot incision and drainage was seen at bedside this morning. Patient was AAO x 3 and NAD at time of visit. Denies any acute overnight events. States that pain is well controlled and that he has remained NWB. Denies any further pedal complaints. Denies N/V/F/C/CP/SOB/D/posterior calf pain Objective - Vital Signs/Intake and Output Vital Signs (last 24 hours): Temp Pulse Resp BP Pulse Ox 97.9 F 94 H 20 140/78 96 12/30/17 00:00 12/30/17 00:00 12/30/17 00:00 12/30/17 00:00 12/30/17 00:00 - Medications Medications: Current Medications Benzonatate (Tessalon Perles) 100 mg PO TID PRN PRN Reason: FOR COUGH Last Admin: 12/21/17 19:22 Dose: 100 mg Dextrose (Dextrose 50% Inj) 0 ml IVP .STAT PRN; Protocol PRN Reason: Hypoglycemia Protocol Dextrose (Glutose 15) 0 gm PO .ONCE PRN; Protocol PRN Reason: Hypoglycemia Protocol Docusate Sodium (Colace) 100 mg PO Q12 PRN PRN Reason: Constipation Last Admin: 12/29/17 16:40 Dose: 100 mg Glucagon (Glucagen Diagnostic Kit) 0 mg IM .STAT PRN; Protocol PRN Reason: Hypoglycemia Protocol Heparin Sodium (Porcine) (Heparin) 5,000 units SC Q8 [facility] Last Admin: 12/30/17 05:22 Dose: 5,000 units Piperacillin Sod/Tazobactam Sod (Zosyn 3.375 Gm Iv Premix) 3.375 gm in 50 mls @ 100 mls/hr IVPB Q8H [facility] PRN Reason: Protocol Last Admin: 12/30/17 05:22 Dose: 100 mls/hr Insulin Human NPH (Novolin N) 40 unit SC HS [facility] Last Admin: 12/29/17 21:53 Dose: 40 unit Insulin Human Regular (Novolin R) 0 unit SC ACHS [facility] Last Admin: 12/29/17 21:54 Dose: Not Given Insulin Human Regular (Novolin R) 14 unit SC AC [facility] Last Admin: 12/29/17 16:30 Dose: 14 unit Oxycodone/Acetaminophen (Percocet 5/325 Mg Tab) 1 tab PO Q6H PRN PRN Reason: Pain, severe (8-10) Stop: 01/01/18 00:53 Last Admin: 12/30/17 05:41 Dose: 1 tab Pantoprazole Sodium (Protonix Ec Tab) 40 mg PO DAILY [facility] Last Admin: 12/29/17 09:55 Dose: 40 mg Saccharomyces Boulardii (Florastor) 250 mg PO BID [facility] Last Admin: 12/29/17 17:53 Dose: 250 mg - Labs Labs: 12/30/17 06:38 12/29/17 06:31 PT 15.0 SECONDS (9.7-12.2) H 12/17/17 22:10 INR 1.3 12/17/17 22:10 APTT 27 SECONDS (21-34) 12/17/17 22:10 - Constitutional Appears: Well, Non-toxic, No Acute Distress - Extremities Exam Additional comments: Left lower extremity exam DERM: Dorsal, medial and plantar incisions measuring roughly 5 cm in length appreciated as well as roughly 7 cm lateral ankle incision. All skin edges well coapted and all sutures intact. Site where packing was previous pulled from was noted to be slightly macerated. No erythema, malodor, purulent drainage or other clinical signs of infection noted at this time. VASC: Non-palpable DP/PT noted secondary to edema. 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 Hernandez Ankle and tib/fib xrays both negative for soft tissue emphysema Wounds dressed with betadine soaked gauze, ABD, kirlix and light MILAGROS Patient to remain STRICTLY NWB for time being No further surgical intervention planned at this time Following discharge patient will follow up in Dr. Hernandez's clinic for wound care Podiatry will continue to follow while patient in house
[2017-12-30] MEDS: (Novolin R) Insulin Human Regular 100 units/ml vial SC SCH ×7 (07:30→21:41)
[2017-12-30 07:50] LABS: ALB/GLOB RATIO 0.8 (1.0-2.1); ALBUMIN 2.9 g/dL (3.5-5.0); ALT/SGPT 34 U/L (21-72); AST/SGOT 18 U/L (17-59); BLOOD UREA NITROGEN 11 mg/dL (9-20); CALCIUM 8.6 mg/dl (8.6-10.4); GFR AFRICAN-AMERICAN > 60; GFR NON-AFRICAN AMERICAN > 60
[2017-12-30] MEDS: Saccharomyces Boulardi 250 mg Cap PO SCH ×2 (11:13→17:36)
[2017-12-30] MEDS: Pantoprazole 40 mg EC Tab PO SCH (11:13)
--- NOTE | 2017-12-30 13:51 | CP.PCM.PN ---
<January Mathew DO - Last Filed: 12/30/17 13:36> Subjective - Date & Time of Evaluation Date of Evaluation: 12/30/17 Time of Evaluation: 09:10 - Subjective Subjective: Medicine progress note for Dr. Taylor's service: Patient seen and examined. Patient states he is doing well and has been managing to ambulate with help of walker. Patient states his pain is well controlled and denies fevers, chills, nausea or vomiting. Patient reports good appetite. Patient is requesting help with sleep at night and reports inability to fall or stay asleep while hospitalized. Objective - Vital Signs/Intake and Output Vital Signs (last 24 hours): Temp Pulse Resp BP Pulse Ox 97.8 F 90 20 145/85 95 12/30/17 07:27 12/30/17 07:27 12/30/17 07:27 12/30/17 07:27 12/30/17 07:27 - Medications Medications: Current Medications Benzonatate (Tessalon Perles) 100 mg PO TID PRN PRN Reason: FOR COUGH Last Admin: 12/21/17 19:22 Dose: 100 mg Dextrose (Dextrose 50% Inj) 0 ml IVP .STAT PRN; Protocol PRN Reason: Hypoglycemia Protocol Dextrose (Glutose 15) 0 gm PO .ONCE PRN; Protocol PRN Reason: Hypoglycemia Protocol Docusate Sodium (Colace) 100 mg PO Q12 PRN PRN Reason: Constipation Last Admin: 12/30/17 11:12 Dose: 100 mg Glucagon (Glucagen Diagnostic Kit) 0 mg IM .STAT PRN; Protocol PRN Reason: Hypoglycemia Protocol Heparin Sodium (Porcine) (Heparin) 5,000 units SC Q8 [facility] Last Admin: 12/30/17 05:22 Dose: 5,000 units Piperacillin Sod/Tazobactam Sod (Zosyn 3.375 Gm Iv Premix) 3.375 gm in 50 mls @ 100 mls/hr IVPB Q8H [facility] PRN Reason: Protocol Last Admin: 12/30/17 05:22 Dose: 100 mls/hr Insulin Human NPH (Novolin N) 40 unit SC HS [facility] Last Admin: 12/29/17 21:53 Dose: 40 unit Insulin Human Regular (Novolin R) 0 unit SC ACHS [facility] Last Admin: 12/30/17 11:31 Dose: Not Given Insulin Human Regular (Novolin R) 14 unit SC AC [facility] Last Admin: 12/30/17 11:30 Dose: 14 unit Oxycodone/Acetaminophen (Percocet 5/325 Mg Tab) 1 tab PO Q6H PRN PRN Reason: Pain, severe (8-10) Stop: 01/01/18 00:53 Last Admin: 12/30/17 11:34 Dose: 1 tab Pantoprazole Sodium (Protonix Ec Tab) 40 mg PO DAILY [facility] Last Admin: 12/30/17 11:13 Dose: 40 mg Saccharomyces Boulardii (Florastor) 250 mg PO BID [facility] Last Admin: 12/30/17 11:13 Dose: 250 mg Trazodone HCl (Desyrel) 50 mg PO HS PRN PRN Reason: Insomnia - Labs Labs: 12/30/17 06:38 12/30/17 06:38 PT 15.0 SECONDS (9.7-12.2) H 12/17/17 22:10 INR 1.3 12/17/17 22:10 APTT 27 SECONDS (21-34) 12/17/17 22:10 - Constitutional Appears: Non-toxic, No Acute Distress - Head Exam Head Exam: ATRAUMATIC, NORMOCEPHALIC - Eye Exam Eye Exam: EOMI, PERRL (small pupils bilaterally) - ENT Exam ENT Exam: Mucous Membranes Moist - Respiratory Exam Respiratory Exam: Clear to Ausculation Bilateral, NORMAL BREATHING PATTERN - Cardiovascular Exam Cardiovascular Exam: +S1, +S2 - GI/Abdominal Exam GI & Abdominal Exam: Soft, Normal Bowel Sounds. absent: Tenderness - Extremities Exam Additional comments: left foot wrapped, sensation intact to toes and upper leg, warm on palpation - Neurological Exam Neurological Exam: Alert, Awake - Psychiatric Exam Psychiatric exam: Normal Affect - Skin Skin Exam: Warm Assessment and Plan - Assessment and Plan (Free Text) Assessment: 52M with past medical history of DM, HTN, and history of left foot ulceration treated in 04/2017 presents with left foot ulcer with soft tissue emphysema s/p left foot I&D (12/18/17); s/p left foot incision, drainage and debridement of non- viable tissue on 12/27/[address] Hernandez (1) Diabetic foot ulcers Assessment & Plan: Podiatry: Dr. Hernandez * continue NWB to left foot, patient will need outpatient follow up with Dr. Hernandez * s/p left foot incision, drainage and debridement of non-viable tissue on with Dr. Hernandez * S/p bedside incision and drainage 12/18/17 * S/p left foot incision and drainage for left foot soft tissue emphysema 12/18/17 * wound care and pain management as per podiatry team ID: Dr. Brooks, help appreciated - patient may be able to have rocephin 2g/IV daily for 6 weeks rather than zosyn q8h - suggested to have CTA and vascular eval (+) Leukocytosis, stable * Infectious Disease consult: Dr Brooks * Blood culture negative at 3 days x2 * Left foot wound culture:Proteus Mirabilis and Group G Strep Imaging: * X-ray left foot - gas emphysema noted dorsum and plantar aspect of mid-foot * Left foot X-rays s/p bedside I&D (12/18/17): Postsurgical changes with subcutaneous emphysema seen. Focal osteopenia in the 4th and 5th metatarsal heads may reflect underlying osteomyelitis. * Left foot X-rays left tib-fib (12/18/17): Subcutaneous emphysema is seen tracking along the lateral lower extremity. * Left foot X-ray (12/17/17): Extensive left forefoot subcutaneous gas and poor visualization of the 4th metatarsal head is likely related to osteomyelitis and soft tissue abscess. * MRI to assess for osteomyelitis - Findings consistent with osteomyelitis involving the distal portion and the head of the 4th metatarsal and also involving the proximal phalanx of the 4th toe. * Suspicious for septic arthritis of the 4th metatarsophalangeal joint. * Bone marrow edema and questionable small erosion noted at the head of the 3rd metatarsal bone may represent an early osteomyelitis. * Mild bone marrow edema noted at the proximal phalanx of the 3rd and 5th toe likely represent reactive changes due to hyperemia. * Diffuse soft tissue infection/inflammatory process at the lateral distal portion of the left foot associated with foci of air in the subcutaneous and deep soft tissue. The possibility of small abscess formation cannot be totally excluded in this noncontrast enhanced study. * Soft tissue edema and diffuse myositis at the mid and distal portion of the left foot. * As per podiatry note (12/20/17): Patient was informed of the MRI result with possible treatment options. Amputation of left 3rd 4th 5th rays discussed, which patient adamantly refused. * JASPER/PVR: Right JASPER non diagnostic due to arterial wall calcification, PVR waveforms show normal arterial perfusion to bilateral lower extremities at rest , normal toe brachial indexes left JASPER non diagnostic due to arterial wall calcification. PVR waveforms have normal arterial perfusion to bilateral lower extremities at restl normal toe brachial indexes. recommend CTA Medication/Management: Pain: patient was on morphine at high doses, weaned down. Continue Percocet 5/325 q6h (started on 12/26) Zosyn (Started 12/20/17) Florastor 250mg PO BID PT/OT treatment and evaluation PICC line placed right arm on 12/23 Discontinued: Meropenem 500mg IV Q6H (Started 12/18/17), Vancomycin 1g IV Q12H ( Started 12/18/17) (2) Uncontrolled diabetes mellitus Assessment & Plan: Endocrinology consults, Dr. Mcconnell, help appreciated HbgA1C (12/18/17): 12.3 Accuchecks ACHS NPH insulin 40 units HS Novolin R 14 units AC Novolin R [facility] Hypoglycemia protocol (3) HTN (hypertension) Assessment & Plan: BP well controlled continue to monitor (4) Prophylactic measure Assessment & Plan: Protonix 40mg PO QD DVT: SCD and Heparin SC Physical therapy Heart healthy, diabetic diet Colace 100mg PO for constipation <Giuliano Taylor - Last Filed: 12/30/17 13:59> Objective - Vital Signs/Intake and Output Vital Signs (last 24 hours): Temp Pulse Resp BP Pulse Ox 97.8 F 90 20 145/85 95 12/30/17 07:27 12/30/17 07:27 12/30/17 07:27 12/30/17 07:27 12/30/17 07:27 - Medications Medications: Current Medications Benzonatate (Tessalon Perles) 100 mg PO TID PRN PRN Reason: FOR COUGH Last Admin: 12/21/17 19:22 Dose: 100 mg Dextrose (Dextrose 50% Inj) 0 ml IVP .STAT PRN; Protocol PRN Reason: Hypoglycemia Protocol Dextrose (Glutose 15) 0 gm PO .ONCE PRN; Protocol PRN Reason: Hypoglycemia Protocol Docusate Sodium (Colace) 100 mg PO Q12 PRN PRN Reason: Constipation Last Admin: 12/30/17 11:12 Dose: 100 mg Glucagon (Glucagen Diagnostic Kit) 0 mg IM .STAT PRN; Protocol PRN Reason: Hypoglycemia Protocol Heparin Sodium (Porcine) (Heparin) 5,000 units SC Q8 [facility] Last Admin: 12/30/17 13:52 Dose: 5,000 units Piperacillin Sod/Tazobactam Sod (Zosyn 3.375 Gm Iv Premix) 3.375 gm in 50 mls @ 100 mls/hr IVPB Q8H [facility] PRN Reason: Protocol Last Admin: 12/30/17 13:52 Dose: 100 mls/hr Insulin Human NPH (Novolin N) 40 unit SC HS [facility] Last Admin: 12/29/17 21:53 Dose: 40 unit Insulin Human Regular (Novolin R) 0 unit SC ACHS [facility] Last Admin: 12/30/17 11:31 Dose: Not Given Insulin Human Regular (Novolin R) 14 unit SC AC [facility] Last Admin: 12/30/17 11:30 Dose: 14 unit Oxycodone/Acetaminophen (Percocet 5/325 Mg Tab) 1 tab PO Q6H PRN PRN Reason: Pain, severe (8-10) Stop: 01/01/18 00:53 Last Admin: 12/30/17 11:34 Dose: 1 tab Pantoprazole Sodium (Protonix Ec Tab) 40 mg PO DAILY [facility] Last Admin: 12/30/17 11:13 Dose: 40 mg Saccharomyces Boulardii (Florastor) 250 mg PO BID [facility] Last Admin: 12/30/17 11:13 Dose: 250 mg Trazodone HCl (Desyrel) 50 mg PO HS PRN PRN Reason: Insomnia - Labs Labs: 12/30/17 06:38 12/30/17 06:38 PT 15.0 SECONDS (9.7-12.2) H 12/17/17 22:10 INR 1.3 12/17/17 22:10 APTT 27 SECONDS (21-34) 12/17/17 22:10 Attending/Attestation - Attestation I have personally seen and examined this patient.: Yes I have fully participated in the care of the patient.: Yes I have reviewed all pertinent clinical information, including history, physical exam and plan: Yes Notes (Text): 12/30/17 13:56 Medical attending: Patient was seen and examined by me as well. Agree with the above note by the resident The patient was not having any acute issues overnight. As mentioned previously he does NOT want amputation of the metatsal area and now here with prolonged IV abx. The patient on Wednesday 12/27 had a left foot incision, drainage and debridement of non-viable tissue with podiatry So at this we continue to monitor the cultures (proteus and also grp G strep growth) as well as the accucheks for sugar control. thank you Giuliano Taylor 12/30/17 13:59
[2017-12-30] MEDS: (Novolin N) Insulin Human Isophane (NPH) 100 u/ml 10 ml vial SC SCH (21:45)
--- NOTE | 2017-12-31 00:07 | PN ---
DATE: ENDOCRINOLOGY FOLLOWUP NOTE LOCATION: Room 370. This is a 52-year-old male with recent uncontrolled type 2 insulin requiring diabetes, now being followed closely for metabolic management. His glycemic levels are fluctuating, but improved. The latest glucose levels have ranged from 201 to 204 mg/dL. So at this time, we will actually continue the same regular insulin given as 14 units subcutaneous t.i.d. before meals as ordered. We will increase the basal insulin with NPH to be given as 44 units subcutaneous at bedtime daily as given. We will titrate incrementally as indicated to optimize metabolic control. We will follow her and advise accordingly. We will also sign off from the diabetic care of patient and would recommend the same aforementioned dose regimen for eventual discharge. Celia Mcconnell MD
[2017-12-31] MEDS: Piperacill/Tazo 3.375gm in Dex 3.375 GM/50 ML BAG IVPB SCH ×3 (05:51→21:38)
--- NOTE | 2017-12-31 06:56 | CP.PCM.PN ---
Subjective - Date & Time of Evaluation Date of Evaluation: 12/31/17 Time of Evaluation: 07:35 - Subjective Subjective: Progress note Patient seen and examined at bedside. no acute events overnight. Patient states he's doing well and able to walk to the bathroom with walker. Patient denies fever, chills, nausea vomiting, left foot pain, drainage from wound, left leg edema Objective - Vital Signs/Intake and Output Vital Signs (last 24 hours): Temp Pulse Resp BP Pulse Ox 98.6 F 89 20 131/83 98 12/31/17 00:00 12/31/17 00:00 12/31/17 00:00 12/31/17 00:00 12/31/17 00:00 Intake and Output: 12/30/17 12/31/17 18:59 06:59 Intake Total 500 500 Output Total 1000 Balance -500 500 - Medications Medications: Current Medications Benzonatate (Tessalon Perles) 100 mg PO TID PRN PRN Reason: FOR COUGH Last Admin: 12/21/17 19:22 Dose: 100 mg Dextrose (Dextrose 50% Inj) 0 ml IVP .STAT PRN; Protocol PRN Reason: Hypoglycemia Protocol Dextrose (Glutose 15) 0 gm PO .ONCE PRN; Protocol PRN Reason: Hypoglycemia Protocol Docusate Sodium (Colace) 100 mg PO Q12 PRN PRN Reason: Constipation Last Admin: 12/30/17 11:12 Dose: 100 mg Glucagon (Glucagen Diagnostic Kit) 0 mg IM .STAT PRN; Protocol PRN Reason: Hypoglycemia Protocol Heparin Sodium (Porcine) (Heparin) 5,000 units SC Q8 [facility] Last Admin: 12/31/17 05:51 Dose: 5,000 units Piperacillin Sod/Tazobactam Sod (Zosyn 3.375 Gm Iv Premix) 3.375 gm in 50 mls @ 100 mls/hr IVPB Q8H [facility] PRN Reason: Protocol Last Admin: 12/31/17 05:51 Dose: 100 mls/hr Insulin Human NPH (Novolin N) 44 unit SC HS [facility] Last Admin: 12/30/17 21:45 Dose: 44 unit Insulin Human Regular (Novolin R) 0 unit SC ACHS [facility] Last Admin: 12/30/17 21:41 Dose: 4 unit Insulin Human Regular (Novolin R) 14 unit SC AC [facility] Last Admin: 12/30/17 17:37 Dose: Not Given Oxycodone/Acetaminophen (Percocet 5/325 Mg Tab) 1 tab PO Q6H PRN PRN Reason: Pain, severe (8-10) Stop: 01/01/18 00:53 Last Admin: 12/30/17 11:34 Dose: 1 tab Pantoprazole Sodium (Protonix Ec Tab) 40 mg PO DAILY [facility] Last Admin: 12/30/17 11:13 Dose: 40 mg Saccharomyces Boulardii (Florastor) 250 mg PO BID [facility] Last Admin: 12/30/17 17:36 Dose: 250 mg Trazodone HCl (Desyrel) 50 mg PO HS PRN PRN Reason: Insomnia - Labs Labs: 12/30/17 06:38 12/30/17 06:38 PT 15.0 SECONDS (9.7-12.2) H 12/17/17 22:10 INR 1.3 12/17/17 22:10 APTT 27 SECONDS (21-34) 12/17/17 22:10 - Constitutional Appears: Non-toxic, No Acute Distress - Head Exam Head Exam: ATRAUMATIC, NORMAL INSPECTION, NORMOCEPHALIC - Eye Exam Eye Exam: EOMI, Normal appearance Pupil Exam: NORMAL ACCOMODATION, PERRL - ENT Exam ENT Exam: Mucous Membranes Moist, Normal Exam - Neck Exam Neck Exam: Full ROM. absent: Thyromegaly - Respiratory Exam Respiratory Exam: Clear to Ausculation Bilateral, NORMAL BREATHING PATTERN. absent: Accessory Muscle Use, Respiratory Distress - Cardiovascular Exam Cardiovascular Exam: Bradycardia, REGULAR RHYTHM, +S1, +S2. absent: Tachycardia - GI/Abdominal Exam GI & Abdominal Exam: Soft, Normal Bowel Sounds - Extremities Exam Extremities Exam: Normal Capillary Refill Additional comments: left foot and ankle dressing intact, clean, dry, no drainage - Neurological Exam Neurological Exam: Alert, Awake, CN II-XII Intact - Psychiatric Exam Psychiatric exam: Normal Affect, Normal Mood - Skin Skin Exam: Dry, Normal Color, Warm Assessment and Plan - Assessment and Plan (Free Text) Assessment: 52M with past medical history of DM, HTN, and history of left foot ulceration treated in 04/2017 presents with left foot ulcer with soft tissue emphysema s/p left foot I&D (12/18/17); s/p left foot incision, drainage and debridement of non- viable tissue on 12/27/[address] Hernandez (1) Diabetic foot ulcers Assessment & Plan: Podiatry: Dr. Hernandez * continue non-weight bearing to left foot, patient will need outpatient follow up with Dr. Hernandez * s/p left foot incision, drainage and debridement of non-viable tissue on with Dr. Hernandez * S/p bedside incision and drainage 12/18/17 * S/p left foot incision and drainage for left foot soft tissue emphysema 12/18/17 * wound care and pain management as per podiatry team ID: Dr. Brooks, help appreciated - patient may be able to have rocephin 2g/IV daily for 6 weeks rather than zosyn q8h - suggested to have CTA and vascular eval (+) Leukocytosis, stable * Infectious Disease consult: Dr Brooks * Blood culture negative at 3 days x2 * Left foot wound culture:Proteus Mirabilis and Group G Strep Imaging: * X-ray left foot - gas emphysema noted dorsum and plantar aspect of mid-foot * Left foot X-rays s/p bedside I&D (12/18/17): Postsurgical changes with subcutaneous emphysema seen. Focal osteopenia in the 4th and 5th metatarsal heads may reflect underlying osteomyelitis. * Left foot X-rays left tib-fib (12/18/17): Subcutaneous emphysema is seen tracking along the lateral lower extremity. * Left foot X-ray (12/17/17): Extensive left forefoot subcutaneous gas and poor visualization of the 4th metatarsal head is likely related to osteomyelitis and soft tissue abscess. * MRI to assess for osteomyelitis - Findings consistent with osteomyelitis involving the distal portion and the head of the 4th metatarsal and also involving the proximal phalanx of the 4th toe. * Suspicious for septic arthritis of the 4th metatarsophalangeal joint. * Bone marrow edema and questionable small erosion noted at the head of the 3rd metatarsal bone may represent an early osteomyelitis. * Mild bone marrow edema noted at the proximal phalanx of the 3rd and 5th toe likely represent reactive changes due to hyperemia. * Diffuse soft tissue infection/inflammatory process at the lateral distal portion of the left foot associated with foci of air in the subcutaneous and deep soft tissue. The possibility of small abscess formation cannot be totally excluded in this noncontrast enhanced study. * Soft tissue edema and diffuse myositis at the mid and distal portion of the left foot. * As per podiatry note (12/20/17): Patient was informed of the MRI result with possible treatment options. Amputation of left 3rd 4th 5th rays discussed, which patient adamantly refused. * JASPER/PVR: Right JASPER non diagnostic due to arterial wall calcification, PVR waveforms show normal arterial perfusion to bilateral lower extremities at rest , normal toe brachial indexes left JASPER non diagnostic due to arterial wall calcification. PVR waveforms have normal arterial perfusion to bilateral lower extremities at restl normal toe brachial indexes. recommend CTA Medication/Management: Pain: patient was on morphine at high doses, weaned down. Continue Percocet 5/325 q6h (started on 12/26) Zosyn (Started 12/20/17) Florastor 250mg PO BID PT/OT treatment and evaluation PICC line placed right arm on 12/23 Discontinued: Meropenem 500mg IV Q6H (Started 12/18/17), Vancomycin 1g IV Q12H ( Started 12/18/17) (2) Uncontrolled diabetes mellitus Assessment & Plan: Endocrinology consults, Dr. Mcconnell, help appreciated Hgb A1c (12/18/17): 12.3 Hgb A1c (12/30/17): 11.1 Accuchecks ACHS Novolin R 14 u SC AC Novolin R SC ACHS NPH 44u SC HS Endo Consult: Dr. Mcconnell Hypoglycemia protocol (3) HTN (hypertension) Assessment & Plan: BP well controlled continue to monitor (4) Prophylactic measure Assessment & Plan: Protonix 40mg PO QD DVT: SCD and Heparin SC Physical therapy Heart healthy, diabetic diet Colace 100mg PO for constipation
[2017-12-31 07:25] LABS: BASO # 0.1 K/uL (0.0-0.2); BASO % 1.6 % (0.0-2.0); EOS # 0.3 K/uL (0.0-0.7); EOS % 5.3 % (0.0-4.0); HEMOGLOBIN 9.1 g/dL (12.0-18.0); LYMPH # 2.1 K/uL (1.0-4.3); LYMPH % 33.2 % (20.0-40.0); MEAN CELL VOLUME 96.4 fL (80.0-94.0); MEAN CORPUSCULAR HEMOGLOBIN 32.9 pg (27.0-31.0); MEAN CORPUSCULAR HGB CONC 34.2 g/dL (33.0-37.0); MEAN PLATELET VOLUME 7.3 fL (7.2-11.7); MONO # 0.6 K/uL (0.0-0.8); MONO % 8.8 % (0.0-10.0); NEUT # 3.2 K/uL (1.8-7.0); NEUT % 51.1 % (50.0-75.0); RBC 2.76 Mil/uL (4.40-5.90); RED CELL DISTRIBUTION WIDTH 14.7 % (11.5-14.5); WHITE BLOOD COUNT 6.3 K/uL (4.8-10.8)
--- NOTE | 2017-12-31 07:50 | CP.PCM.PN ---
Subjective - Date & Time of Evaluation Date of Evaluation: 12/31/17 Time of Evaluation: 07:48 - Subjective Subjective: Podiatry note for Dr. Hernandez 52 year old male patient 12 days s/p LEFT foot incision and drainage and 4 days s/p repeat left foot incision and drainage was seen at bedside this morning. Patient was AAO x 3 and NAD at time of visit. Denies any acute overnight events. States that pain is well controlled and that he has remained NWB. Denies any further pedal complaints. Dressing to left foot remains clean,dry, intact with mild strikethrough on bandage. Denies N/V/F/C/CP/SOB/D/posterior calf pain Objective - Vital Signs/Intake and Output Vital Signs (last 24 hours): Temp Pulse Resp BP Pulse Ox 98.2 F 90 20 125/79 96 12/31/17 07:35 12/31/17 07:35 12/31/17 07:35 12/31/17 07:35 12/31/17 07:35 Intake and Output: 12/31/17 12/31/17 06:59 18:59 Intake Total 500 Balance 500 - Medications Medications: Current Medications Benzonatate (Tessalon Perles) 100 mg PO TID PRN PRN Reason: FOR COUGH Last Admin: 12/21/17 19:22 Dose: 100 mg Dextrose (Dextrose 50% Inj) 0 ml IVP .STAT PRN; Protocol PRN Reason: Hypoglycemia Protocol Dextrose (Glutose 15) 0 gm PO .ONCE PRN; Protocol PRN Reason: Hypoglycemia Protocol Docusate Sodium (Colace) 100 mg PO Q12 PRN PRN Reason: Constipation Last Admin: 12/30/17 11:12 Dose: 100 mg Glucagon (Glucagen Diagnostic Kit) 0 mg IM .STAT PRN; Protocol PRN Reason: Hypoglycemia Protocol Heparin Sodium (Porcine) (Heparin) 5,000 units SC Q8 [facility] Last Admin: 12/31/17 05:51 Dose: 5,000 units Piperacillin Sod/Tazobactam Sod (Zosyn 3.375 Gm Iv Premix) 3.375 gm in 50 mls @ 100 mls/hr IVPB Q8H [facility] PRN Reason: Protocol Last Admin: 12/31/17 05:51 Dose: 100 mls/hr Insulin Human NPH (Novolin N) 44 unit SC HS [facility] Last Admin: 12/30/17 21:45 Dose: 44 unit Insulin Human Regular (Novolin R) 0 unit SC ACHS [facility] Last Admin: 12/30/17 21:41 Dose: 4 unit Insulin Human Regular (Novolin R) 14 unit SC AC [facility] Last Admin: 12/30/17 17:37 Dose: Not Given Oxycodone/Acetaminophen (Percocet 5/325 Mg Tab) 1 tab PO Q6H PRN PRN Reason: Pain, severe (8-10) Stop: 01/01/18 00:53 Last Admin: 12/30/17 11:34 Dose: 1 tab Pantoprazole Sodium (Protonix Ec Tab) 40 mg PO DAILY [facility] Last Admin: 12/30/17 11:13 Dose: 40 mg Saccharomyces Boulardii (Florastor) 250 mg PO BID [facility] Last Admin: 12/30/17 17:36 Dose: 250 mg Trazodone HCl (Desyrel) 50 mg PO HS PRN PRN Reason: Insomnia - Labs Labs: 12/31/17 07:08 12/30/17 06:38 PT 15.0 SECONDS (9.7-12.2) H 12/17/17 22:10 INR 1.3 12/17/17 22:10 APTT 27 SECONDS (21-34) 12/17/17 22:10 - Constitutional Appears: Well, Non-toxic, No Acute Distress - Extremities Exam Additional comments: Left lower extremity exam DERM: Dorsal, medial and plantar incisions measuring roughly 5 cm in length appreciated as well as roughly 7 cm lateral ankle incision. All skin edges well coapted and all sutures intact. dorso lateral ulceration measuring 1cm x 1.5cm x 0.5cm slightly macerated with no active drainage, no probe to bone, No erythema, malodor, purulent drainage or other clinical signs of infection noted at this time. VASC: Non-palpable DP/PT noted secondary to edema. [employer] less than 3 seconds noted to all digits NEURO: Gross sensation intact ORTHO: Minimal pain on palpation to Left foot, Passive ROM to joints cannot be tested due to guarding - Neurological Exam Neurological Exam: Alert, Awake, Oriented x3 - Psychiatric Exam Psychiatric exam: Normal Affect, Normal Mood Assessment and Plan - Assessment and Plan (Free Text) Assessment: 52 year old male patient 12 days s/p LEFT foot incision and drainage and 4 days s/p repeat left foot incision and drainage was seen at bedside this morning Plan: Patient seen and evaluated at bedside Afebrile, absent leukocytosis Plan discussed with Dr. Hernandez Ankle and tib/fib xrays both negative for soft tissue emphysema Wounds dressed with betadine soaked gauze, ABD, kirlix and light MILAGROS to left foot Patient to remain STRICTLY NWB for time being No further surgical intervention planned at this time Following discharge patient will follow up in Dr. Hernandez's clinic for wound care Podiatry will continue to follow while patient in house
[2017-12-31 07:52] LABS: ALB/GLOB RATIO 0.8 (1.0-2.1); ALBUMIN 3.2 g/dL (3.5-5.0); ALT/SGPT 24 U/L (21-72); AST/SGOT 16 U/L (17-59); BLOOD UREA NITROGEN 13 mg/dL (9-20); CALCIUM 9.2 mg/dl (8.6-10.4); GFR AFRICAN-AMERICAN > 60; GFR NON-AFRICAN AMERICAN > 60
[2017-12-31] MEDS: Saccharomyces Boulardi 250 mg Cap PO SCH ×2 (09:32→18:11)
[2017-12-31] MEDS: Pantoprazole 40 mg EC Tab PO SCH (09:32)
[2017-12-31] MEDS: (Novolin R) Insulin Human Regular 100 units/ml vial SC SCH ×7 (09:33→21:39)
[2017-12-31] MEDS: Oxycodone/Acetaminophen 5/325 mg Tab PO PRN ×2 (13:59→20:25)
[2017-12-31] MEDS: (Novolin N) Insulin Human Isophane (NPH) 100 u/ml 10 ml vial SC SCH (21:39)
[2018-01-01] MEDS ORDERED: Oxycodone/Acetaminophen 5/325 mg Tab PO PRN (04:03)
[2018-01-01] MEDS: Piperacill/Tazo 3.375gm in Dex 3.375 GM/50 ML BAG IVPB SCH ×3 (06:01→21:23)
--- NOTE | 2018-01-01 07:22 | CP.PCM.PN ---
<Lacy Teague - Last Filed: 01/01/18 10:33> Subjective - Date & Time of Evaluation Date of Evaluation: 01/01/18 Time of Evaluation: 07:22 - Subjective Subjective: Progress Note for Dr. Taylor Patient seen and examined at bedside. Patient had an episode of hypoglycemia overnight. Patient states he ate pudding, drank juices and the glucose reading was better. Patient denies fever, chills, nausea, vomiting, diarrhea. Patient said he felt tired and shaky at the time of low blood sugar but denies this issue at the time of the interview. Objective - Vital Signs/Intake and Output Vital Signs (last 24 hours): Temp Pulse Resp BP Pulse Ox 97.9 F 94 H 20 151/88 H 98 01/01/18 00:00 01/01/18 00:00 01/01/18 00:00 01/01/18 00:00 01/01/18 00:00 - Medications Medications: Current Medications Benzonatate (Tessalon Perles) 100 mg PO TID PRN PRN Reason: FOR COUGH Last Admin: 12/21/17 19:22 Dose: 100 mg Dextrose (Dextrose 50% Inj) 0 ml IVP .STAT PRN; Protocol PRN Reason: Hypoglycemia Protocol Dextrose (Glutose 15) 0 gm PO .ONCE PRN; Protocol PRN Reason: Hypoglycemia Protocol Docusate Sodium (Colace) 100 mg PO Q12 PRN PRN Reason: Constipation Last Admin: 12/31/17 09:32 Dose: 100 mg Glucagon (Glucagen Diagnostic Kit) 0 mg IM .STAT PRN; Protocol PRN Reason: Hypoglycemia Protocol Piperacillin Sod/Tazobactam Sod (Zosyn 3.375 Gm Iv Premix) 3.375 gm in 50 mls @ 100 mls/hr IVPB Q8H [facility] PRN Reason: Protocol Last Admin: 01/01/18 06:01 Dose: 100 mls/hr Insulin Human NPH (Novolin N) 44 unit SC HS [facility] Last Admin: 12/31/17 21:39 Dose: 44 unit Insulin Human Regular (Novolin R) 0 unit SC ACHS [facility] Last Admin: 12/31/17 21:39 Dose: Not Given Insulin Human Regular (Novolin R) 14 unit SC AC [facility] Last Admin: 12/31/17 16:30 Dose: Not Given Oxycodone/Acetaminophen (Percocet 5/325 Mg Tab) 1 tab PO Q6H PRN PRN Reason: Pain, moderate (4-7) Stop: 01/04/18 04:04 Last Admin: 01/01/18 04:30 Dose: 1 tab Pantoprazole Sodium (Protonix Ec Tab) 40 mg PO DAILY [facility] Last Admin: 12/31/17 09:32 Dose: 40 mg Saccharomyces Boulardii (Florastor) 250 mg PO BID [facility] Last Admin: 12/31/17 18:11 Dose: 250 mg Trazodone HCl (Desyrel) 50 mg PO HS PRN PRN Reason: Insomnia - Labs Labs: 12/31/17 07:08 12/31/17 07:08 PT 15.0 SECONDS (9.7-12.2) H 12/17/17 22:10 INR 1.3 12/17/17 22:10 APTT 27 SECONDS (21-34) 12/17/17 22:10 - Constitutional Appears: Non-toxic, No Acute Distress - Head Exam Head Exam: ATRAUMATIC, NORMAL INSPECTION, NORMOCEPHALIC - Eye Exam Eye Exam: EOMI, Normal appearance Pupil Exam: NORMAL ACCOMODATION, PERRL - ENT Exam ENT Exam: Mucous Membranes Moist, Normal Exam - Neck Exam Neck Exam: Full ROM, Normal Inspection - Cardiovascular Exam Cardiovascular Exam: REGULAR RHYTHM, +S1, +S2 - GI/Abdominal Exam GI & Abdominal Exam: Soft, Normal Bowel Sounds. absent: Tenderness - Extremities Exam Extremities Exam: Full ROM, Normal Inspection. absent: Pedal Edema - Neurological Exam Neurological Exam: Alert, Awake, CN II-XII Intact, Oriented x3 - Psychiatric Exam Psychiatric exam: Normal Affect, Normal Mood - Skin Skin Exam: Dry, Normal Color, Warm Additional comments: patient has left foot wrapped in isaías bandage. clean, dry, intact Assessment and Plan - Assessment and Plan (Free Text) Assessment: 52M with past medical history of DM, HTN, and history of left foot ulceration treated in 04/2017 presents with left foot ulcer with soft tissue emphysema s/p left foot I&D (12/18/17); s/p left foot incision, drainage and debridement of non- viable tissue on 12/27/[address] Hernandez (1) Diabetic foot ulcers Assessment & Plan: Podiatry: Dr. Hernandez * continue non-weight bearing to left foot, patient will need outpatient follow up with Dr. Hernandez * s/p left foot incision, drainage and debridement of non-viable tissue on with Dr. Hernandez * S/p bedside incision and drainage 12/18/17 * S/p left foot incision and drainage for left foot soft tissue emphysema 12/18/17 * wound care and pain management as per podiatry team ID: Dr. Brooks, help appreciated - patient may be able to have rocephin 2g/IV daily for 6 weeks rather than zosyn q8h - suggested to have CTA and vascular eval (+) Leukocytosis, stable * Infectious Disease consult: Dr Brooks * Blood culture negative at 3 days x2 * Left foot wound culture:Proteus Mirabilis and Group G Strep Imaging: * X-ray left foot - gas emphysema noted dorsum and plantar aspect of mid-foot * Left foot X-rays s/p bedside I&D (12/18/17): Postsurgical changes with subcutaneous emphysema seen. Focal osteopenia in the 4th and 5th metatarsal heads may reflect underlying osteomyelitis. * Left foot X-rays left tib-fib (12/18/17): Subcutaneous emphysema is seen tracking along the lateral lower extremity. * Left foot X-ray (12/17/17): Extensive left forefoot subcutaneous gas and poor visualization of the 4th metatarsal head is likely related to osteomyelitis and soft tissue abscess. * MRI to assess for osteomyelitis - Findings consistent with osteomyelitis involving the distal portion and the head of the 4th metatarsal and also involving the proximal phalanx of the 4th toe. * Suspicious for septic arthritis of the 4th metatarsophalangeal joint. * Bone marrow edema and questionable small erosion noted at the head of the 3rd metatarsal bone may represent an early osteomyelitis. * Mild bone marrow edema noted at the proximal phalanx of the 3rd and 5th toe likely represent reactive changes due to hyperemia. * Diffuse soft tissue infection/inflammatory process at the lateral distal portion of the left foot associated with foci of air in the subcutaneous and deep soft tissue. The possibility of small abscess formation cannot be totally excluded in this noncontrast enhanced study. * Soft tissue edema and diffuse myositis at the mid and distal portion of the left foot. * As per podiatry note (12/20/17): Patient was informed of the MRI result with possible treatment options. Amputation of left 3rd 4th 5th rays discussed, which patient adamantly refused. * JASPER/PVR: Right JASPER non diagnostic due to arterial wall calcification, PVR waveforms show normal arterial perfusion to bilateral lower extremities at rest , normal toe brachial indexes left JASPER non diagnostic due to arterial wall calcification. PVR waveforms have normal arterial perfusion to bilateral lower extremities at restl normal toe brachial indexes. recommend CTA Medication/Management: Pain: patient was on morphine at high doses, weaned down. Continue Percocet 5/325 q6h (started on 12/26) Zosyn (Started 12/20/17) Florastor 250mg PO BID PT/OT treatment and evaluation PICC line placed right arm on 12/23 Discontinued: Meropenem 500mg IV Q6H (Started 12/18/17), Vancomycin 1g IV Q12H ( Started 12/18/17) (2) Uncontrolled diabetes mellitus Assessment & Plan: Endocrinology consults, Dr. Mcconnell, help appreciated Hgb A1c (12/18/17): 12.3 Hgb A1c (12/30/17): 11.1 Accuchecks ACHS Novolin R 14 u SC AC Novolin R SC ACHS NPH 44u SC HS Endo Consult: Dr. Mcconnell Hypoglycemia protocol (3) HTN (hypertension) Assessment & Plan: BP well controlled continue to monitor (4) Prophylactic measure Assessment & Plan: Protonix 40mg PO QD DVT: SCD and Heparin SC Physical therapy Heart healthy, diabetic diet Colace 100mg PO for constipation Lacy Teague DO PGY1 <Giuliano Taylor H - Last Filed: 01/01/18 11:54> Objective - Vital Signs/Intake and Output Vital Signs (last 24 hours): Temp Pulse Resp BP Pulse Ox 99.0 F 70 20 137/81 98 01/01/18 08:18 01/01/18 10:49 01/01/18 08:18 01/01/18 08:18 01/01/18 10:49 Intake and Output: 01/01/18 01/01/18 06:59 18:59 Intake Total 350 Output Total 600 Balance -250 - Medications Medications: Current Medications Benzonatate (Tessalon Perles) 100 mg PO TID PRN PRN Reason: FOR COUGH Last Admin: 12/21/17 19:22 Dose: 100 mg Dextrose (Dextrose 50% Inj) 0 ml IVP .STAT PRN; Protocol PRN Reason: Hypoglycemia Protocol Dextrose (Glutose 15) 0 gm PO .ONCE PRN; Protocol PRN Reason: Hypoglycemia Protocol Docusate Sodium (Colace) 100 mg PO Q12 PRN PRN Reason: Constipation Last Admin: 01/01/18 10:21 Dose: 100 mg Glucagon (Glucagen Diagnostic Kit) 0 mg IM .STAT PRN; Protocol PRN Reason: Hypoglycemia Protocol Piperacillin Sod/Tazobactam Sod (Zosyn 3.375 Gm Iv Premix) 3.375 gm in 50 mls @ 100 mls/hr IVPB Q8H [facility] PRN Reason: Protocol Last Admin: 01/01/18 06:01 Dose: 100 mls/hr Insulin Human NPH (Novolin N) 44 unit SC HS [facility] Last Admin: 12/31/17 21:39 Dose: 44 unit Insulin Human Regular (Novolin R) 0 unit SC ACHS [facility] Last Admin: 01/01/18 08:30 Dose: Not Given Insulin Human Regular (Novolin R) 14 unit SC AC [facility] Last Admin: 01/01/18 08:31 Dose: 14 unit Oxycodone/Acetaminophen (Percocet 5/325 Mg Tab) 1 tab PO Q8H PRN PRN Reason: Pain, moderate (4-7) Stop: 01/04/18 04:04 Pantoprazole Sodium (Protonix Ec Tab) 40 mg PO DAILY [facility] Last Admin: 01/01/18 10:21 Dose: 40 mg Saccharomyces Boulardii (Florastor) 250 mg PO BID [facility] Last Admin: 01/01/18 10:21 Dose: 250 mg Trazodone HCl (Desyrel) 50 mg PO HS PRN PRN Reason: Insomnia - Labs Labs: 12/31/17 07:08 12/31/17 07:08 PT 15.0 SECONDS (9.7-12.2) H 12/17/17 22:10 INR 1.3 12/17/17 22:10 APTT 27 SECONDS (21-34) 12/17/17 22:10 Attending/Attestation - Attestation I have personally seen and examined this patient.: Yes I have fully participated in the care of the patient.: Yes I have reviewed all pertinent clinical information, including history, physical exam and plan: Yes Notes (Text): 01/01/18 11:54 Medical attending: Patient was seen and examined by me, agrees the above note by the resident. The patient was not in any acute distress when we saw him. As she previously he continues to receive IV antibiotics for the lower extremity osteomyelitis. It should be re-mentioned that podiatry has recommended that he get an amputation however he refused therefore he's here for prolonged period of time getting IV antibiotics. I encouraged him to have continue with physical therapy Thank you very much, Giuliano Taylor
[2018-01-01] MEDS: (Novolin R) Insulin Human Regular 100 units/ml vial SC SCH ×7 (08:30→21:22)
--- NOTE | 2018-01-01 10:04 | CP.PCM.PN ---
Subjective - Date & Time of Evaluation Date of Evaluation: 01/01/18 Time of Evaluation: 10:03 - Subjective Subjective: Podiatry note for Dr. Hernandez 52 year old male patient 13 days s/p LEFT foot incision and drainage and 5 days s/p repeat left foot incision and drainage was seen at bedside this morning. Patient was AAO x 3 and NAD at time of visit. Denies any acute overnight events. States that pain is well controlled and that he has remained NWB. Denies any further pedal complaints. Dressing to left foot remains clean,dry, intact with mild strikethrough on bandage. Denies N/V/F/C/CP/SOB/D/posterior calf pain Objective - Vital Signs/Intake and Output Vital Signs (last 24 hours): Temp Pulse Resp BP Pulse Ox 99.0 F 94 H 20 137/81 98 01/01/18 08:18 01/01/18 08:18 01/01/18 08:18 01/01/18 08:18 01/01/18 08:18 Intake and Output: 01/01/18 01/01/18 06:59 18:59 Intake Total 350 Output Total 600 Balance -250 - Medications Medications: Current Medications Benzonatate (Tessalon Perles) 100 mg PO TID PRN PRN Reason: FOR COUGH Last Admin: 12/21/17 19:22 Dose: 100 mg Dextrose (Dextrose 50% Inj) 0 ml IVP .STAT PRN; Protocol PRN Reason: Hypoglycemia Protocol Dextrose (Glutose 15) 0 gm PO .ONCE PRN; Protocol PRN Reason: Hypoglycemia Protocol Docusate Sodium (Colace) 100 mg PO Q12 PRN PRN Reason: Constipation Last Admin: 12/31/17 09:32 Dose: 100 mg Glucagon (Glucagen Diagnostic Kit) 0 mg IM .STAT PRN; Protocol PRN Reason: Hypoglycemia Protocol Piperacillin Sod/Tazobactam Sod (Zosyn 3.375 Gm Iv Premix) 3.375 gm in 50 mls @ 100 mls/hr IVPB Q8H [facility] PRN Reason: Protocol Last Admin: 01/01/18 06:01 Dose: 100 mls/hr Insulin Human NPH (Novolin N) 44 unit SC HS [facility] Last Admin: 12/31/17 21:39 Dose: 44 unit Insulin Human Regular (Novolin R) 0 unit SC ACHS [facility] Last Admin: 01/01/18 08:30 Dose: Not Given Insulin Human Regular (Novolin R) 14 unit SC AC [facility] Last Admin: 01/01/18 08:31 Dose: 14 unit Oxycodone/Acetaminophen (Percocet 5/325 Mg Tab) 1 tab PO Q8H PRN PRN Reason: Pain, moderate (4-7) Stop: 01/04/18 04:04 Pantoprazole Sodium (Protonix Ec Tab) 40 mg PO DAILY [facility] Last Admin: 12/31/17 09:32 Dose: 40 mg Saccharomyces Boulardii (Florastor) 250 mg PO BID [facility] Last Admin: 12/31/17 18:11 Dose: 250 mg Trazodone HCl (Desyrel) 50 mg PO HS PRN PRN Reason: Insomnia - Labs Labs: 12/31/17 07:08 12/31/17 07:08 PT 15.0 SECONDS (9.7-12.2) H 12/17/17 22:10 INR 1.3 12/17/17 22:10 APTT 27 SECONDS (21-34) 12/17/17 22:10 - Constitutional Appears: Well, Non-toxic, No Acute Distress - Extremities Exam Additional comments: Left lower extremity exam DERM: Dorsal, medial and plantar incisions measuring roughly 5 cm in length appreciated as well as roughly 7 cm lateral ankle incision. All skin edges well coapted and all sutures intact. dorso lateral ulceration measuring 1cm x 1.5cm x 0.5cm slightly macerated with moderate serous active drainage, no probe to bone, No erythema, malodor, purulent drainage or other clinical signs of infection noted at this time. VASC: Non-palpable DP/PT noted secondary to edema. 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 Hernandez Ankle and tib/fib xrays both negative for soft tissue emphysema Wounds dressed with betadine soaked gauze, ABD, kirlix and light MILAGROS to left foot Patient to remain STRICTLY NWB for time being No further surgical intervention planned at this time patient stable from podiatry standpoint Following discharge patient will follow up in Dr. Hernandez's clinic for wound care Podiatry will continue to follow while patient in house
[2018-01-01] MEDS: Pantoprazole 40 mg EC Tab PO SCH (10:21)
[2018-01-01] MEDS: Saccharomyces Boulardi 250 mg Cap PO SCH ×2 (10:21→18:06)
[2018-01-01] MEDS: Oxycodone/Acetaminophen 5/325 mg Tab PO PRN (21:24)
[2018-01-01] MEDS: (Novolin N) Insulin Human Isophane (NPH) 100 u/ml 10 ml vial SC SCH (21:27)
[2018-01-02] MEDS: Piperacill/Tazo 3.375gm in Dex 3.375 GM/50 ML BAG IVPB SCH ×3 (05:26→21:27)
[2018-01-02] MEDS: Oxycodone/Acetaminophen 5/325 mg Tab PO PRN ×2 (05:27→14:24)
[2018-01-02] MEDS: (Novolin R) Insulin Human Regular 100 units/ml vial SC SCH ×7 (08:01→22:15)
[2018-01-02] MEDS: Saccharomyces Boulardi 250 mg Cap PO SCH ×2 (09:42→17:38)
[2018-01-02] MEDS: Pantoprazole 40 mg EC Tab PO SCH (09:42)
--- NOTE | 2018-01-02 09:51 | CP.PCM.PN ---
Subjective - Date & Time of Evaluation Date of Evaluation: 01/02/18 Time of Evaluation: 09:51 - Subjective Subjective: Podiatry Progress Note - Dr. David KnightM seen and evaluated at bedside 15 days s/p left foot I&D (DOS 12/18/17) and 6 days s/p follow up left foot I&D (DOS 12/27/17). Patient ambulating on left foot dressing at time of visit despite enforcement of strict NWB LLE. Patient denies any acute events overnight. Reports minimal pain to left foot, well-controlled. Offers no other pedal complaints this visit. Denies N/V/F/D/C/SOB/WINTER/dizziness. Objective - Vital Signs/Intake and Output Vital Signs (last 24 hours): Temp Pulse Resp BP Pulse Ox 97.6 F 89 20 148/90 97 01/02/18 07:53 01/02/18 07:53 01/02/18 07:53 01/02/18 07:53 01/02/18 07:53 Intake and Output: 01/02/18 01/02/18 06:59 18:59 Intake Total 390 Balance 390 - Medications Medications: Current Medications Benzonatate (Tessalon Perles) 100 mg PO TID PRN PRN Reason: FOR COUGH Last Admin: 12/21/17 19:22 Dose: 100 mg Dextrose (Dextrose 50% Inj) 0 ml IVP .STAT PRN; Protocol PRN Reason: Hypoglycemia Protocol Dextrose (Glutose 15) 0 gm PO .ONCE PRN; Protocol PRN Reason: Hypoglycemia Protocol Docusate Sodium (Colace) 100 mg PO Q12 PRN PRN Reason: Constipation Last Admin: 01/02/18 09:42 Dose: 100 mg Glucagon (Glucagen Diagnostic Kit) 0 mg IM .STAT PRN; Protocol PRN Reason: Hypoglycemia Protocol Piperacillin Sod/Tazobactam Sod (Zosyn 3.375 Gm Iv Premix) 3.375 gm in 50 mls @ 100 mls/hr IVPB Q8H [facility] PRN Reason: Protocol Last Admin: 01/02/18 05:26 Dose: 100 mls/hr Insulin Human NPH (Novolin N) 44 unit SC HS [facility] Last Admin: 01/01/18 21:27 Dose: 44 unit Insulin Human Regular (Novolin R) 0 unit SC ACHS [facility] Last Admin: 01/02/18 08:02 Dose: 3 unit Insulin Human Regular (Novolin R) 14 unit SC AC [facility] Last Admin: 01/02/18 08:01 Dose: 14 unit Oxycodone/Acetaminophen (Percocet 5/325 Mg Tab) 1 tab PO Q8H PRN PRN Reason: Pain, moderate (4-7) Stop: 01/04/18 04:04 Last Admin: 01/02/18 05:27 Dose: 1 tab Pantoprazole Sodium (Protonix Ec Tab) 40 mg PO DAILY [facility] Last Admin: 01/02/18 09:42 Dose: 40 mg Saccharomyces Boulardii (Florastor) 250 mg PO BID [facility] Last Admin: 01/02/18 09:42 Dose: 250 mg Trazodone HCl (Desyrel) 50 mg PO HS PRN PRN Reason: Insomnia - Labs Labs: 12/31/17 07:08 12/31/17 07:08 PT 15.0 SECONDS (9.7-12.2) H 12/17/17 22:10 INR 1.3 12/17/17 22:10 APTT 27 SECONDS (21-34) 12/17/17 22:10 - Constitutional Appears: Well, Non-toxic, No Acute Distress - Extremities Exam Additional comments: Left lower extremity exam Dressing to left foot remains intact with strikethrough present overlying wound at bases of 4th and 5th digit. DERM: Dorsal, medial and plantar incisions measuring roughly 5 cm in length appreciated as well as roughly 7 cm lateral ankle incision. All skin edges well coapted and all sutures intact. Serosanguinous drainage able to be expressed from dorsal incision. Dorsolateral ulceration measuring 1cm x 1.5cm x 0.5cm slightly macerated with moderate serous active drainage able to be expressed; no probe to bone, absent malodor. Mild periwound erythema noted to dorsal incision and dorsolateral ulceration. VASC: Non-palpable DP/PT noted secondary to edema. Nonpitting edema remains to entire left foot. 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 No pain on palpation to dorsolateral ulceration. - Neurological Exam Neurological Exam: Alert, Awake, Oriented x3 - Psychiatric Exam Psychiatric exam: Normal Affect, Normal Mood Assessment and Plan - Assessment and Plan (Free Text) Assessment: 52M 15 days s/p left foot I&D (DOS 12/18/17) and 6 days s/p follow up left foot I& D (DOS 12/27/17). Plan: Patient seen and evaluated at bedside Discussed with attending, Dr. Hernandez Afebrile Ankle and tib/fib xrays both negative for soft tissue emphysema Continue local wound care - betadine soaked 4x4s, ABD, kerlix Patient is to remain strictly NWB LLE with the assistance of walker -Patient noncompliant despite maximal education No further surgical intervention planned at this time Continue abx - Zosyn 3.375g IV Stable from podiatry standpoint Patient is to follow up with Dr. Hernandez in the podiatry clinic (Saturday afternoons) for continued wound care Podiatry will continue to follow patient while in house
[2018-01-02 10:46] LABS: ALB/GLOB RATIO 0.9 (1.0-2.1); ALBUMIN 3.3 g/dL (3.5-5.0); ALT/SGPT 24 U/L (21-72); AST/SGOT 22 U/L (17-59); BLOOD UREA NITROGEN 15 mg/dL (9-20); GFR AFRICAN-AMERICAN > 60; GFR NON-AFRICAN AMERICAN > 60
--- NOTE | 2018-01-02 12:58 | CP.PCM.PN ---
Subjective - Date & Time of Evaluation Date of Evaluation: 01/02/18 Time of Evaluation: 13:53 - Subjective Subjective: Progress Note for Dr. Taylor Patient seen and examined at bedside. No acute events overnight. Patient states he's doing well and is not putting weight on his left foot. Patient denies any fever, chills, nausea, vomiting, diarrhea, constipation. Patient states his glucose levels are controlled. It was explained to the patient that there needs to be tighter control to allow for better wound healing Objective - Vital Signs/Intake and Output Vital Signs (last 24 hours): Temp Pulse Resp BP Pulse Ox 97.6 F 89 20 148/90 97 01/02/18 07:53 01/02/18 07:53 01/02/18 07:53 01/02/18 07:53 01/02/18 07:53 Intake and Output: 01/02/18 01/02/18 06:59 18:59 Intake Total 390 Balance 390 - Medications Medications: Current Medications Benzonatate (Tessalon Perles) 100 mg PO TID PRN PRN Reason: FOR COUGH Last Admin: 12/21/17 19:22 Dose: 100 mg Dextrose (Dextrose 50% Inj) 0 ml IVP .STAT PRN; Protocol PRN Reason: Hypoglycemia Protocol Dextrose (Glutose 15) 0 gm PO .ONCE PRN; Protocol PRN Reason: Hypoglycemia Protocol Docusate Sodium (Colace) 100 mg PO Q12 PRN PRN Reason: Constipation Last Admin: 01/02/18 09:42 Dose: 100 mg Glucagon (Glucagen Diagnostic Kit) 0 mg IM .STAT PRN; Protocol PRN Reason: Hypoglycemia Protocol Piperacillin Sod/Tazobactam Sod (Zosyn 3.375 Gm Iv Premix) 3.375 gm in 50 mls @ 100 mls/hr IVPB Q8H [facility] PRN Reason: Protocol Last Admin: 01/02/18 05:26 Dose: 100 mls/hr Insulin Human NPH (Novolin N) 44 unit SC HS [facility] Last Admin: 01/01/18 21:27 Dose: 44 unit Insulin Human Regular (Novolin R) 0 unit SC ACHS [facility] Last Admin: 01/02/18 08:02 Dose: 3 unit Insulin Human Regular (Novolin R) 14 unit SC AC [facility] Last Admin: 01/02/18 08:01 Dose: 14 unit Oxycodone/Acetaminophen (Percocet 5/325 Mg Tab) 1 tab PO Q8H PRN PRN Reason: Pain, moderate (4-7) Stop: 01/04/18 04:04 Last Admin: 01/02/18 05:27 Dose: 1 tab Pantoprazole Sodium (Protonix Ec Tab) 40 mg PO DAILY [facility] Last Admin: 01/02/18 09:42 Dose: 40 mg Saccharomyces Boulardii (Florastor) 250 mg PO BID [facility] Last Admin: 01/02/18 09:42 Dose: 250 mg Trazodone HCl (Desyrel) 50 mg PO HS PRN PRN Reason: Insomnia - Labs Labs: 12/31/17 07:08 01/02/18 10:18 PT 15.0 SECONDS (9.7-12.2) H 12/17/17 22:10 INR 1.3 12/17/17 22:10 APTT 27 SECONDS (21-34) 12/17/17 22:10 - Constitutional Appears: Non-toxic, No Acute Distress - Head Exam Head Exam: ATRAUMATIC, NORMAL INSPECTION, NORMOCEPHALIC - Eye Exam Eye Exam: EOMI, Normal appearance Pupil Exam: NORMAL ACCOMODATION, PERRL - ENT Exam ENT Exam: Mucous Membranes Moist, Normal Exam - Neck Exam Neck Exam: Full ROM, Normal Inspection. absent: Lymphadenopathy - Respiratory Exam Respiratory Exam: Clear to Ausculation Bilateral, NORMAL BREATHING PATTERN. absent: Accessory Muscle Use - Cardiovascular Exam Cardiovascular Exam: REGULAR RHYTHM, +S1, +S2 - GI/Abdominal Exam GI & Abdominal Exam: Soft, Normal Bowel Sounds. absent: Tenderness - Extremities Exam Extremities Exam: Full ROM, Normal Capillary Refill. absent: Pedal Edema Additional comments: Patient's left foot is wrapped. dressings c/d/i - Back Exam Back Exam: Full ROM, NORMAL INSPECTION - Neurological Exam Neurological Exam: Alert, Awake, CN II-XII Intact, Oriented x3 - Psychiatric Exam Psychiatric exam: Normal Affect, Normal Mood - Skin Skin Exam: Dry, Intact, Normal Color, Warm Assessment and Plan - Assessment and Plan (Free Text) Assessment: 52M with past medical history of DM, HTN, and history of left foot ulceration treated in 04/2017 presents with left foot ulcer with soft tissue emphysema s/p left foot I&D (12/18/17); s/p left foot incision, drainage and debridement of non- viable tissue on 12/27/[address] Hernandez (1) Diabetic foot ulcers Assessment & Plan: Podiatry: Dr. Hernandez * continue non-weight bearing to left foot, patient will need outpatient follow up with Dr. Hernandez * s/p left foot incision, drainage and debridement of non-viable tissue on with Dr. Hernandez * S/p bedside incision and drainage 12/18/17 * S/p left foot incision and drainage for left foot soft tissue emphysema 12/18/17 * wound care and pain management as per podiatry team * Per podiatry: no further surgical management at this point. ID: Dr. Brooks, help appreciated - patient may be able to have rocephin 2g/IV daily for 6 weeks rather than zosyn q8h - suggested to have CTA and vascular eval (+) Leukocytosis, stable * Infectious Disease consult: Dr Brooks * Blood culture negative at 3 days x2 * Left foot wound culture:Proteus Mirabilis and Group G Strep Imaging: * X-ray left foot - gas emphysema noted dorsum and plantar aspect of mid-foot * Left foot X-rays s/p bedside I&D (12/18/17): Postsurgical changes with subcutaneous emphysema seen. Focal osteopenia in the 4th and 5th metatarsal heads may reflect underlying osteomyelitis. * Left foot X-rays left tib-fib (12/18/17): Subcutaneous emphysema is seen tracking along the lateral lower extremity. * Left foot X-ray (12/17/17): Extensive left forefoot subcutaneous gas and poor visualization of the 4th metatarsal head is likely related to osteomyelitis and soft tissue abscess. * MRI to assess for osteomyelitis - Findings consistent with osteomyelitis involving the distal portion and the head of the 4th metatarsal and also involving the proximal phalanx of the 4th toe. * Suspicious for septic arthritis of the 4th metatarsophalangeal joint. * Bone marrow edema and questionable small erosion noted at the head of the 3rd metatarsal bone may represent an early osteomyelitis. * Mild bone marrow edema noted at the proximal phalanx of the 3rd and 5th toe likely represent reactive changes due to hyperemia. * Diffuse soft tissue infection/inflammatory process at the lateral distal portion of the left foot associated with foci of air in the subcutaneous and deep soft tissue. The possibility of small abscess formation cannot be totally excluded in this noncontrast enhanced study. * Soft tissue edema and diffuse myositis at the mid and distal portion of the left foot. * As per podiatry note (12/20/17): Patient was informed of the MRI result with possible treatment options. Amputation of left 3rd 4th 5th rays discussed, which patient adamantly refused. * JASPER/PVR: Right JASPER non diagnostic due to arterial wall calcification, PVR waveforms show normal arterial perfusion to bilateral lower extremities at rest , normal toe brachial indexes left JASPER non diagnostic due to arterial wall calcification. PVR waveforms have normal arterial perfusion to bilateral lower extremities at rest normal toe brachial indexes. recommend CTA Medication/Management: Pain: patient was on morphine at high doses, weaned down. Continue Percocet 5/325 q6h (started on 12/26) Discontinued: Meropenem 500mg IV Q6H (Started 12/18/17), Vancomycin 1g IV Q12H ( Started 12/18/17) Zosyn (Started 12/20/17). Per Dr. Brooks, Zosyn to finish in 6 weeks on 01/31/18 Florastor 250mg PO BID PT/OT treatment and evaluation PICC line placed right arm on 12/23 (2) Uncontrolled diabetes mellitus Assessment & Plan: Endocrinology consults, Dr. Mcconnell, help appreciated Hgb A1c (12/18/17): 12.3 Hgb A1c (12/30/17): 11.1 Accuchecks ACHS Novolin R 14 u SC AC Novolin R SC ACHS NPH 44u SC HS Endo Consult: Dr. Mcconnell Hypoglycemia protocol (3) HTN (hypertension) Assessment & Plan: BP well controlled continue to monitor (4) Prophylactic measure Assessment & Plan: Protonix 40mg PO QD DVT: SCD and Heparin SC Physical therapy Heart healthy, diabetic diet Colace 100mg PO for constipation Lacy Teague DO PGY1
[2018-01-02] MEDS: (Novolin N) Insulin Human Isophane (NPH) 100 u/ml 10 ml vial SC SCH (21:28)
[2018-01-03] MEDS ORDERED: (Novolin R) Insulin Human Regular 100 units/ml vial SC ONE (02:09)
[2018-01-03] MEDS: Piperacill/Tazo 3.375gm in Dex 3.375 GM/50 ML BAG IVPB SCH ×3 (05:45→21:52)
[2018-01-03 06:44] LABS: BASO # 0.1 K/uL (0.0-0.2); BASO % 2.1 % (0.0-2.0); EOS # 0.5 K/uL (0.0-0.7); EOS % 7.6 % (0.0-4.0); HEMOGLOBIN 9.5 g/dL (12.0-18.0); LYMPH # 1.7 K/uL (1.0-4.3); LYMPH % 26.8 % (20.0-40.0); MEAN CELL VOLUME 97.2 fL (80.0-94.0); MEAN CORPUSCULAR HEMOGLOBIN 33.8 pg (27.0-31.0); MEAN CORPUSCULAR HGB CONC 34.7 g/dL (33.0-37.0); MEAN PLATELET VOLUME 7.5 fL (7.2-11.7); MONO # 0.7 K/uL (0.0-0.8); MONO % 10.2 % (0.0-10.0); NEUT # 3.4 K/uL (1.8-7.0); NEUT % 53.3 % (50.0-75.0); RBC 2.82 Mil/uL (4.40-5.90); RED CELL DISTRIBUTION WIDTH 14.9 % (11.5-14.5); WHITE BLOOD COUNT 6.4 K/uL (4.8-10.8)
--- NOTE | 2018-01-03 07:29 | CP.PCM.PN ---
<Liam Gruber - Last Filed: 01/03/18 10:48> Subjective - Date & Time of Evaluation Date of Evaluation: 01/03/18 Time of Evaluation: 09:10 - Subjective Subjective: Medicine progress note for Dr. Taylor Patient seen and examined. Patient reports that he is doing well and has no acute complaints at this time. Patient was counseled on diet and urged to consume the same amount of food daily so that his insulin regimen can be adjusted accordingly. Patient states that after his blood sugars were low, he was given multiple containers of juice to correct it. Objective - Vital Signs/Intake and Output Vital Signs (last 24 hours): Temp Pulse Resp BP Pulse Ox 98 F 94 H 20 120/76 99 01/03/18 05:45 01/03/18 00:00 01/03/18 00:00 01/03/18 00:00 01/02/18 15:09 Intake and Output: 01/03/18 01/03/18 06:59 18:59 Intake Total 700 Balance 700 - Medications Medications: Current Medications Benzonatate (Tessalon Perles) 100 mg PO TID PRN PRN Reason: FOR COUGH Last Admin: 12/21/17 19:22 Dose: 100 mg Dextrose (Dextrose 50% Inj) 0 ml IVP .STAT PRN; Protocol PRN Reason: Hypoglycemia Protocol Dextrose (Glutose 15) 0 gm PO .ONCE PRN; Protocol PRN Reason: Hypoglycemia Protocol Docusate Sodium (Colace) 100 mg PO Q12 PRN PRN Reason: Constipation Last Admin: 01/02/18 09:42 Dose: 100 mg Glucagon (Glucagen Diagnostic Kit) 0 mg IM .STAT PRN; Protocol PRN Reason: Hypoglycemia Protocol Piperacillin Sod/Tazobactam Sod (Zosyn 3.375 Gm Iv Premix) 3.375 gm in 50 mls @ 100 mls/hr IVPB Q8H [facility] PRN Reason: Protocol Last Admin: 01/03/18 05:45 Dose: 100 mls/hr Insulin Human NPH (Novolin N) 44 unit SC HS [facility] Last Admin: 01/02/18 21:28 Dose: 44 unit Insulin Human Regular (Novolin R) 0 unit SC ACHS [facility] Last Admin: 01/02/18 22:15 Dose: 3 unit Insulin Human Regular (Novolin R) 14 unit SC AC [facility] Last Admin: 01/02/18 16:30 Dose: Not Given Oxycodone/Acetaminophen (Percocet 5/325 Mg Tab) 1 tab PO Q8H PRN PRN Reason: Pain, moderate (4-7) Stop: 01/04/18 04:04 Last Admin: 01/02/18 05:27 Dose: 1 tab Pantoprazole Sodium (Protonix Ec Tab) 40 mg PO DAILY [facility] Last Admin: 01/02/18 09:42 Dose: 40 mg Saccharomyces Boulardii (Florastor) 250 mg PO BID [facility] Last Admin: 01/02/18 17:38 Dose: 250 mg Trazodone HCl (Desyrel) 50 mg PO HS PRN PRN Reason: Insomnia - Labs Labs: 01/03/18 06:29 01/02/18 10:18 PT 15.0 SECONDS (9.7-12.2) H 12/17/17 22:10 INR 1.3 12/17/17 22:10 APTT 27 SECONDS (21-34) 12/17/17 22:10 - Additional Findings Additional findings: - Constitutional Appears: Non-toxic, No Acute Distress - Head Exam Head Exam: ATRAUMATIC, NORMAL INSPECTION, NORMOCEPHALIC - Eye Exam Eye Exam: EOMI, Normal appearance Pupil Exam: NORMAL ACCOMODATION, PERRL - ENT Exam ENT Exam: Mucous Membranes Moist, Normal Exam - Neck Exam Neck Exam: Full ROM, Normal Inspection. absent: Lymphadenopathy - Respiratory Exam Respiratory Exam: Clear to Ausculation Bilateral, NORMAL BREATHING PATTERN. absent: Accessory Muscle Use - Cardiovascular Exam Cardiovascular Exam: REGULAR RHYTHM, +S1, +S2 - GI/Abdominal Exam GI & Abdominal Exam: Soft, Normal Bowel Sounds. absent: Tenderness - Extremities Exam Extremities Exam: Full ROM, Normal Capillary Refill. absent: Pedal Edema Additional comments: Left foot dressing clean, dry, and intact - Back Exam Back Exam: Full ROM, NORMAL INSPECTION - Neurological Exam Neurological Exam: Alert, Awake, CN II-XII Intact, Oriented x3 - Psychiatric Exam Psychiatric exam: Normal Affect, Normal Mood - Skin Skin Exam: Dry, Intact, Normal Color, Warm Assessment and Plan - Assessment and Plan (Free Text) Plan: (1) Diabetic foot ulcers Assessment & Plan: Podiatry: Dr. Hernandez * continue non-weight bearing to left foot, patient will need outpatient follow up with Dr. Hernandez * s/p left foot incision, drainage and debridement of non-viable tissue on with Dr. Hernandez * S/p bedside incision and drainage 12/18/17 * S/p left foot incision and drainage for left foot soft tissue emphysema 12/18/17 * wound care and pain management as per podiatry team * Per podiatry: no further surgical management at this point. ID: Dr. Brooks, help appreciated - patient may be able to have rocephin 2g/IV daily for 6 weeks rather than zosyn q8h - suggested to have CTA and vascular eval (+) Leukocytosis, stable * Infectious Disease consult: Dr Brooks * Blood culture negative at 3 days x2 * Left foot wound culture:Proteus Mirabilis and Group G Strep Imaging: * X-ray left foot - gas emphysema noted dorsum and plantar aspect of mid-foot * Left foot X-rays s/p bedside I&D (12/18/17): Postsurgical changes with subcutaneous emphysema seen. Focal osteopenia in the 4th and 5th metatarsal heads may reflect underlying osteomyelitis. * Left foot X-rays left tib-fib (12/18/17): Subcutaneous emphysema is seen tracking along the lateral lower extremity. * Left foot X-ray (12/17/17): Extensive left forefoot subcutaneous gas and poor visualization of the 4th metatarsal head is likely related to osteomyelitis and soft tissue abscess. * MRI to assess for osteomyelitis - Findings consistent with osteomyelitis involving the distal portion and the head of the 4th metatarsal and also involving the proximal phalanx of the 4th toe. * Suspicious for septic arthritis of the 4th metatarsophalangeal joint. * Bone marrow edema and questionable small erosion noted at the head of the 3rd metatarsal bone may represent an early osteomyelitis. * Mild bone marrow edema noted at the proximal phalanx of the 3rd and 5th toe likely represent reactive changes due to hyperemia. * Diffuse soft tissue infection/inflammatory process at the lateral distal portion of the left foot associated with foci of air in the subcutaneous and deep soft tissue. The possibility of small abscess formation cannot be totally excluded in this noncontrast enhanced study. * Soft tissue edema and diffuse myositis at the mid and distal portion of the left foot. * As per podiatry note (12/20/17): Patient was informed of the MRI result with possible treatment options. Amputation of left 3rd 4th 5th rays discussed, which patient adamantly refused. * JASPER/PVR: Right JASPER non diagnostic due to arterial wall calcification, PVR waveforms show normal arterial perfusion to bilateral lower extremities at rest , normal toe brachial indexes left JASPER non diagnostic due to arterial wall calcification. PVR waveforms have normal arterial perfusion to bilateral lower extremities at rest normal toe brachial indexes. recommend CTA Medication/Management: Pain: patient was on morphine at high doses, weaned down. Continue Percocet 5/325 q6h (started on 12/26) Discontinued: Meropenem 500mg IV Q6H (Started 12/18/17), Vancomycin 1g IV Q12H ( Started 12/18/17) Zosyn (Started 12/20/17). Per Lee Blair to finish in 6 weeks on 01/31/18 Florastor 250mg PO BID PT/OT treatment and evaluation PICC line placed right arm on 12/23 (2) Uncontrolled diabetes mellitus Assessment & Plan: Endocrinology consults, Dr. Mcconnell, help appreciated Hgb A1c (12/18/17): 12.3 Hgb A1c (12/30/17): 11.1 Accuchecks ACHS Novolin R 14 u SC AC Novolin R SC ACHS NPH 44u SC HS Endo Consult: Dr. Mcconnell Hypoglycemia protocol (3) HTN (hypertension) Assessment & Plan: BP well controlled continue to monitor (4) Prophylactic measure Assessment & Plan: Protonix 40mg PO QD DVT: SCD and Heparin SC Physical therapy Heart healthy, diabetic diet Colace 100mg PO for constipation Discussed with Dr. Claudia Gruber PGY-1 <Giuliano Taylor H - Last Filed: 01/03/18 14:33> Objective - Vital Signs/Intake and Output Vital Signs (last 24 hours): Temp Pulse Resp BP Pulse Ox 98.2 F 98 H 20 128/84 100 01/03/18 07:49 01/03/18 07:49 01/03/18 07:49 01/03/18 07:49 01/03/18 07:49 Intake and Output: 01/03/18 01/03/18 06:59 18:59 Intake Total 700 Balance 700 - Medications Medications: Current Medications Benzonatate (Tessalon Perles) 100 mg PO TID PRN PRN Reason: FOR COUGH Last Admin: 01/03/18 13:45 Dose: 100 mg Dextrose (Dextrose 50% Inj) 0 ml IVP .STAT PRN; Protocol PRN Reason: Hypoglycemia Protocol Dextrose (Glutose 15) 0 gm PO .ONCE PRN; Protocol PRN Reason: Hypoglycemia Protocol Docusate Sodium (Colace) 100 mg PO Q12 PRN PRN Reason: Constipation Last Admin: 01/03/18 09:57 Dose: 100 mg Glucagon (Glucagen Diagnostic Kit) 0 mg IM .STAT PRN; Protocol PRN Reason: Hypoglycemia Protocol Piperacillin Sod/Tazobactam Sod (Zosyn 3.375 Gm Iv Premix) 3.375 gm in 50 mls @ 100 mls/hr IVPB Q8H [facility] PRN Reason: Protocol Last Admin: 01/03/18 13:38 Dose: 100 mls/hr Insulin Human NPH (Novolin N) 44 unit SC HS [facility] Last Admin: 01/02/18 21:28 Dose: 44 unit Insulin Human Regular (Novolin R) 0 unit SC ACHS [facility] Last Admin: 01/03/18 12:08 Dose: Not Given Insulin Human Regular (Novolin R) 14 unit SC AC [facility] Last Admin: 01/03/18 13:38 Dose: Not Given Oxycodone/Acetaminophen (Percocet 5/325 Mg Tab) 1 tab PO Q8H PRN PRN Reason: Pain, moderate (4-7) Stop: 01/04/18 04:04 Last Admin: 01/03/18 13:44 Dose: 1 tab Pantoprazole Sodium (Protonix Ec Tab) 40 mg PO DAILY [facility] Last Admin: 01/03/18 09:57 Dose: 40 mg Saccharomyces Boulardii (Florastor) 250 mg PO BID [facility] Last Admin: 01/03/18 09:57 Dose: 250 mg Trazodone HCl (Desyrel) 50 mg PO HS PRN PRN Reason: Insomnia - Labs Labs: 01/03/18 06:29 01/03/18 06:29 PT 15.0 SECONDS (9.7-12.2) H 12/17/17 22:10 INR 1.3 12/17/17 22:10 APTT 27 SECONDS (21-34) 12/17/17 22:10 Attending/Attestation - Attestation I have personally seen and examined this patient.: Yes I have fully participated in the care of the patient.: Yes I have reviewed all pertinent clinical information, including history, physical exam and plan: Yes Notes (Text): 01/03/18 14:32 Medical attending: Patient was seen and examined by me. Agree with the above note by the resident The patient overnight had some hypoglycemia so they were able to give him juice and snacks to bring up blood sugar. Otherwise his BGs have been stable At this time we continue waiting. He remains on pro-longed abx because he refuses reccomendation of amputation thank you Giuliano Taylor
[2018-01-03 07:33] LABS: ALB/GLOB RATIO 0.9 (1.0-2.1); ALBUMIN 3.4 g/dL (3.5-5.0); ALT/SGPT 24 U/L (21-72); AST/SGOT 18 U/L (17-59); BLOOD UREA NITROGEN 16 mg/dL (9-20); CALCIUM 9.6 mg/dl (8.6-10.4); GFR AFRICAN-AMERICAN > 60; GFR NON-AFRICAN AMERICAN > 60
[2018-01-03] MEDS: (Novolin R) Insulin Human Regular 100 units/ml vial SC SCH ×7 (08:35→22:01)
[2018-01-03] MEDS: Pantoprazole 40 mg EC Tab PO SCH (09:57)
[2018-01-03] MEDS: Saccharomyces Boulardi 250 mg Cap PO SCH ×2 (09:57→17:34)
--- NOTE | 2018-01-03 10:29 | CP.PCM.PN ---
Subjective - Date & Time of Evaluation Date of Evaluation: 01/03/18 Time of Evaluation: 10:29 - Subjective Subjective: Podiatry Progress Note - Dr. David KnightM seen and evaluated at bedside 16 days s/p left foot I&D (DOS 12/18/17) and 7 days s/p follow up left foot I&D (DOS 12/27/17). present at bedside. Patient seen ambulating FWB left foot without assistance despite maximal enforcement of strict NWB LLE with the assistance of standard walker. No acute events overnight. Pain in left foot continues to decrease. Offers no other pedal complaints. Denies N/V/F/D/C/SOB/WINTER/dizziness. Objective - Vital Signs/Intake and Output Vital Signs (last 24 hours): Temp Pulse Resp BP Pulse Ox 98.2 F 98 H 20 128/84 100 01/03/18 07:49 01/03/18 07:49 01/03/18 07:49 01/03/18 07:49 01/03/18 07:49 Intake and Output: 01/03/18 01/03/18 06:59 18:59 Intake Total 700 Balance 700 - Medications Medications: Current Medications Benzonatate (Tessalon Perles) 100 mg PO TID PRN PRN Reason: FOR COUGH Last Admin: 12/21/17 19:22 Dose: 100 mg Dextrose (Dextrose 50% Inj) 0 ml IVP .STAT PRN; Protocol PRN Reason: Hypoglycemia Protocol Dextrose (Glutose 15) 0 gm PO .ONCE PRN; Protocol PRN Reason: Hypoglycemia Protocol Docusate Sodium (Colace) 100 mg PO Q12 PRN PRN Reason: Constipation Last Admin: 01/03/18 09:57 Dose: 100 mg Glucagon (Glucagen Diagnostic Kit) 0 mg IM .STAT PRN; Protocol PRN Reason: Hypoglycemia Protocol Piperacillin Sod/Tazobactam Sod (Zosyn 3.375 Gm Iv Premix) 3.375 gm in 50 mls @ 100 mls/hr IVPB Q8H [facility] PRN Reason: Protocol Last Admin: 01/03/18 05:45 Dose: 100 mls/hr Insulin Human NPH (Novolin N) 44 unit SC HS [facility] Last Admin: 01/02/18 21:28 Dose: 44 unit Insulin Human Regular (Novolin R) 0 unit SC ACHS [facility] Last Admin: 01/03/18 08:35 Dose: 5 unit Insulin Human Regular (Novolin R) 14 unit SC AC [facility] Last Admin: 01/03/18 08:36 Dose: 14 unit Oxycodone/Acetaminophen (Percocet 5/325 Mg Tab) 1 tab PO Q8H PRN PRN Reason: Pain, moderate (4-7) Stop: 01/04/18 04:04 Last Admin: 01/02/18 05:27 Dose: 1 tab Pantoprazole Sodium (Protonix Ec Tab) 40 mg PO DAILY [facility] Last Admin: 01/03/18 09:57 Dose: 40 mg Saccharomyces Boulardii (Florastor) 250 mg PO BID [facility] Last Admin: 01/03/18 09:57 Dose: 250 mg Trazodone HCl (Desyrel) 50 mg PO HS PRN PRN Reason: Insomnia - Labs Labs: 01/03/18 06:29 01/03/18 06:29 PT 15.0 SECONDS (9.7-12.2) H 12/17/17 22:10 INR 1.3 12/17/17 22:10 APTT 27 SECONDS (21-34) 12/17/17 22:10 - Constitutional Appears: Well, Non-toxic, No Acute Distress - Extremities Exam Additional comments: Left lower extremity exam Dressing to left foot remains intact with a moderate amount of strikethrough present overlying wound at bases of 4th and 5th digit. DERM: Dorsal, medial and plantar incisions measuring roughly 5 cm in length appreciated as well as roughly 7 cm lateral ankle incision. All skin edges well coapted and all sutures intact. Serosanguinous drainage able to be expressed from dorsal incision. Dorsolateral ulceration measuring 1cm x 1.5cm x 0.5cm slightly macerated with approximately 2cc of purulent drainage able to be expressed; no probe to bone, absent malodor. Mild periwound erythema noted to dorsal incision and dorsolateral ulceration. VASC: Non-palpable DP/PT noted secondary to edema. Nonpitting edema remains to entire left foot. STAFF DEVELOPMENT COORDINATOR less than 3 seconds noted to all digits NEURO: Gross sensation intact ORTHO: No pain on palpation noted to incision sites x4. No pain on palpation to dorsolateral ulceration. - Neurological Exam Neurological Exam: Alert, Awake, Oriented x3 - Psychiatric Exam Psychiatric exam: Normal Affect, Normal Mood Assessment and Plan - Assessment and Plan (Free Text) Assessment: 52M 16 days s/p left foot I&D (DOS 12/18/17) and 7 days s/p follow up left foot I& D (DOS 12/27/17). Plan: Patient seen and evaluated at bedside Discussed with attending, Dr. David Cannon, WBC 6.4 Ankle and tib/fib xrays both negative for soft tissue emphysema Continue local wound care - betadine soaked 4x4s, ABD, kerlix -Approximately 2cc purulence able to be expressed from wound proximal to 4th and 5th digits -Reinforce tight glucose control for wound healing Patient is to remain strictly NWB LLE with the assistance of walker -Patient noncompliant despite maximal education No further surgical intervention planned at this time Continue abx - Zosyn 3.375g IV Stable from podiatry standpoint Patient is to follow up with Dr. Hernandez in the podiatry clinic (Saturday afternoons 12-3) for continued wound care Podiatry will continue to follow patient while in house
[2018-01-03] MEDS: Oxycodone/Acetaminophen 5/325 mg Tab PO PRN (13:44)
[2018-01-03] MEDS: (Novolin N) Insulin Human Isophane (NPH) 100 u/ml 10 ml vial SC SCH (21:51)
[2018-01-04] MEDS: Oxycodone/Acetaminophen 5/325 mg Tab PO PRN ×2 (03:05→14:37)
--- NOTE | 2018-01-04 03:39 | CP.PCM.PN ---
<ZahidaLacy - Last Filed: 01/04/18 03:36> Subjective - Date & Time of Evaluation Date of Evaluation: 01/04/18 Time of Evaluation: 03:39 - Subjective Subjective: Progress note Patient seen and examined at bedside. No acute events overnight. Patient's glucose levels are more stable today, but remain in the 200s. It was emphasized the importance of remaining nonweightbearing on his left lower extremity and the importance of maintaining a better low carbohydrate, consistent diet. Objective - Vital Signs/Intake and Output Vital Signs (last 24 hours): Temp Pulse Resp BP Pulse Ox 98.5 F 88 20 113/62 97 01/03/18 23:52 01/03/18 23:52 01/03/18 23:52 01/03/18 23:52 01/03/18 23:52 Intake and Output: 01/03/18 01/04/18 18:59 06:59 Intake Total 550 Balance 550 - Medications Medications: Current Medications Benzonatate (Tessalon Perles) 100 mg PO TID PRN PRN Reason: FOR COUGH Last Admin: 01/03/18 13:45 Dose: 100 mg Dextrose (Dextrose 50% Inj) 0 ml IVP .STAT PRN; Protocol PRN Reason: Hypoglycemia Protocol Dextrose (Glutose 15) 0 gm PO .ONCE PRN; Protocol PRN Reason: Hypoglycemia Protocol Docusate Sodium (Colace) 100 mg PO Q12 PRN PRN Reason: Constipation Last Admin: 01/03/18 09:57 Dose: 100 mg Glucagon (Glucagen Diagnostic Kit) 0 mg IM .STAT PRN; Protocol PRN Reason: Hypoglycemia Protocol Piperacillin Sod/Tazobactam Sod (Zosyn 3.375 Gm Iv Premix) 3.375 gm in 50 mls @ 100 mls/hr IVPB Q8H [facility] PRN Reason: Protocol Last Admin: 01/03/18 21:52 Dose: 100 mls/hr Insulin Human NPH (Novolin N) 44 unit SC HS [facility] Last Admin: 01/03/18 21:51 Dose: 44 unit Insulin Human Regular (Novolin R) 0 unit SC ACHS [facility] Last Admin: 01/03/18 22:01 Dose: Not Given Insulin Human Regular (Novolin R) 14 unit SC AC [facility] Last Admin: 01/03/18 16:30 Dose: 14 unit Oxycodone/Acetaminophen (Percocet 5/325 Mg Tab) 1 tab PO Q8H PRN PRN Reason: Pain, moderate (4-7) Stop: 01/04/18 04:04 Last Admin: 01/04/18 03:05 Dose: 1 tab Pantoprazole Sodium (Protonix Ec Tab) 40 mg PO DAILY [facility] Last Admin: 01/03/18 09:57 Dose: 40 mg Saccharomyces Boulardii (Florastor) 250 mg PO BID [facility] Last Admin: 01/03/18 17:34 Dose: 250 mg Trazodone HCl (Desyrel) 50 mg PO HS PRN PRN Reason: Insomnia - Labs Labs: 01/03/18 06:29 01/03/18 06:29 PT 15.0 SECONDS (9.7-12.2) H 12/17/17 22:10 INR 1.3 12/17/17 22:10 APTT 27 SECONDS (21-34) 12/17/17 22:10 - Constitutional Appears: Non-toxic, No Acute Distress - Head Exam Head Exam: ATRAUMATIC, NORMAL INSPECTION, NORMOCEPHALIC - Eye Exam Eye Exam: EOMI, Normal appearance Pupil Exam: NORMAL ACCOMODATION - ENT Exam ENT Exam: Mucous Membranes Moist, Normal Exam - Neck Exam Neck Exam: Full ROM, Normal Inspection - Respiratory Exam Respiratory Exam: Clear to Ausculation Bilateral, NORMAL BREATHING PATTERN - Cardiovascular Exam Cardiovascular Exam: REGULAR RHYTHM, +S1, +S2 - GI/Abdominal Exam GI & Abdominal Exam: Soft, Normal Bowel Sounds. absent: Tenderness - Extremities Exam Extremities Exam: Full ROM. absent: Pedal Edema Additional comments: left foot dressings c/d/i patient - Neurological Exam Neurological Exam: Alert, Awake, CN II-XII Intact - Psychiatric Exam Psychiatric exam: Normal Affect, Normal Mood - Skin Skin Exam: Dry, Intact, Normal Color, Warm Assessment and Plan - Assessment and Plan (Free Text) Assessment: (1) Diabetic foot ulcers Assessment & Plan: Podiatry: Dr. Hernandez * continue non-weight bearing to left foot, patient will need outpatient follow up with Dr. Hernandez * s/p left foot incision, drainage and debridement of non-viable tissue on with Dr. Hernandez * S/p bedside incision and drainage 12/18/17 * S/p left foot incision and drainage for left foot soft tissue emphysema 12/18/17 * wound care and pain management as per podiatry team * Per podiatry: no further surgical management at this point. ID: Dr. Brooks, help appreciated - patient may be able to have rocephin 2g/IV daily for 6 weeks rather than zosyn q8h - suggested to have CTA and vascular eval (+) Leukocytosis, stable * Infectious Disease consult: Dr Brooks * Blood culture negative at 3 days x2 * Left foot wound culture:Proteus Mirabilis and Group G Strep Imaging: * X-ray left foot - gas emphysema noted dorsum and plantar aspect of mid-foot * Left foot X-rays s/p bedside I&D (12/18/17): Postsurgical changes with subcutaneous emphysema seen. Focal osteopenia in the 4th and 5th metatarsal heads may reflect underlying osteomyelitis. * Left foot X-rays left tib-fib (12/18/17): Subcutaneous emphysema is seen tracking along the lateral lower extremity. * Left foot X-ray (12/17/17): Extensive left forefoot subcutaneous gas and poor visualization of the 4th metatarsal head is likely related to osteomyelitis and soft tissue abscess. * MRI to assess for osteomyelitis - Findings consistent with osteomyelitis involving the distal portion and the head of the 4th metatarsal and also involving the proximal phalanx of the 4th toe. * Suspicious for septic arthritis of the 4th metatarsophalangeal joint. * Bone marrow edema and questionable small erosion noted at the head of the 3rd metatarsal bone may represent an early osteomyelitis. * Mild bone marrow edema noted at the proximal phalanx of the 3rd and 5th toe likely represent reactive changes due to hyperemia. * Diffuse soft tissue infection/inflammatory process at the lateral distal portion of the left foot associated with foci of air in the subcutaneous and deep soft tissue. The possibility of small abscess formation cannot be totally excluded in this noncontrast enhanced study. * Soft tissue edema and diffuse myositis at the mid and distal portion of the left foot. * As per podiatry note (12/20/17): Patient was informed of the MRI result with possible treatment options. Amputation of left 3rd 4th 5th rays discussed, which patient adamantly refused. * JAPSER/PVR: Right JASPER non diagnostic due to arterial wall calcification, PVR waveforms show normal arterial perfusion to bilateral lower extremities at rest , normal toe brachial indexes left JASPER non diagnostic due to arterial wall calcification. PVR waveforms have normal arterial perfusion to bilateral lower extremities at rest normal toe brachial indexes. recommend CTA Medication/Management: Pain: patient was on morphine at high doses, weaned down. Continue Percocet 5/325 q6h (started on 12/26) Discontinued: Meropenem 500mg IV Q6H (Started 12/18/17), Vancomycin 1g IV Q12H ( Started 12/18/17) Zosyn (Started 12/20/17). Per Dr. Brooks, Zosyn to finish in 6 weeks on 01/31/18 Florastor 250mg PO BID PT/OT treatment and evaluation PICC line placed right arm on 12/23 (2) Uncontrolled diabetes mellitus Assessment & Plan: Endocrinology consults, Dr. Mcconnell, help appreciated Hgb A1c (12/18/17): 12.3 Hgb A1c (12/30/17): 11.1 Accuchecks ACHS Novolin R 14 u SC AC Novolin R SC ACHS NPH 44u SC HS Endo Consult: Dr. Mcconnell Hypoglycemia protocol (3) HTN (hypertension) Assessment & Plan: BP well controlled continue to monitor (4) Prophylaxis Assessment & Plan: Protonix 40mg PO QD DVT: SCD and Heparin SC Physical therapy Heart healthy, diabetic diet (edited to low carbohydrate consistent diet 01/04) Diabetic vice president digital strategist referral Colace 100mg PO q12h prn for constipation Discussed with Dr. Claudia Teague DO PGY1 <Giuliano Taylor H - Last Filed: 01/04/18 09:54> Objective - Vital Signs/Intake and Output Vital Signs (last 24 hours): Temp Pulse Resp BP Pulse Ox 98.1 F 92 H 20 106/71 98 01/04/18 08:12 01/04/18 08:12 01/04/18 08:12 01/04/18 08:12 01/04/18 08:12 Intake and Output: 01/04/18 01/04/18 06:59 18:59 Intake Total 450 Balance 450 - Medications Medications: Current Medications Benzonatate (Tessalon Perles) 100 mg PO TID PRN PRN Reason: FOR COUGH Last Admin: 01/03/18 13:45 Dose: 100 mg Dextrose (Dextrose 50% Inj) 0 ml IVP .STAT PRN; Protocol PRN Reason: Hypoglycemia Protocol Dextrose (Glutose 15) 0 gm PO .ONCE PRN; Protocol PRN Reason: Hypoglycemia Protocol Docusate Sodium (Colace) 100 mg PO Q12 PRN PRN Reason: Constipation Last Admin: 01/03/18 09:57 Dose: 100 mg Glucagon (Glucagen Diagnostic Kit) 0 mg IM .STAT PRN; Protocol PRN Reason: Hypoglycemia Protocol Piperacillin Sod/Tazobactam Sod (Zosyn 3.375 Gm Iv Premix) 3.375 gm in 50 mls @ 100 mls/hr IVPB Q8H [facility] PRN Reason: Protocol Last Admin: 01/04/18 05:30 Dose: 100 mls/hr Insulin Human NPH (Novolin N) 44 unit SC HS [facility] Last Admin: 01/03/18 21:51 Dose: 44 unit Insulin Human Regular (Novolin R) 0 unit SC ACHS [facility] Last Admin: 01/04/18 08:06 Dose: Not Given Insulin Human Regular (Novolin R) 14 unit SC AC [facility] Last Admin: 01/04/18 08:08 Dose: 14 unit Pantoprazole Sodium (Protonix Ec Tab) 40 mg PO DAILY [facility] Last Admin: 01/04/18 09:35 Dose: 40 mg Saccharomyces Boulardii (Florastor) 250 mg PO BID [facility] Last Admin: 01/04/18 09:35 Dose: 250 mg Trazodone HCl (Desyrel) 50 mg PO HS PRN PRN Reason: Insomnia - Labs Labs: 01/04/18 06:30 01/04/18 06:30 PT 15.0 SECONDS (9.7-12.2) H 12/17/17 22:10 INR 1.3 12/17/17 22:10 APTT 27 SECONDS (21-34) 12/17/17 22:10 Attending/Attestation - Attestation I have personally seen and examined this patient.: Yes I have fully participated in the care of the patient.: Yes I have reviewed all pertinent clinical information, including history, physical exam and plan: Yes Notes (Text): Medical attending: Patient was seen and examined by me. Agree with the above note. Currently no new news or acute changes The accuchecks were stable for the past 24 hrs. No sudden episodes of hypoglycemia. So as mentioned previously he will be on abx until January 31. He needs to avoid placing weight to the affected foot. thank you Giuliano Taylor
[2018-01-04] MEDS: Piperacill/Tazo 3.375gm in Dex 3.375 GM/50 ML BAG IVPB SCH ×3 (05:30→22:45)
[2018-01-04 06:58] LABS: BASO # 0.1 K/uL (0.0-0.2); BASO % 1.1 % (0.0-2.0); EOS # 0.6 K/uL (0.0-0.7); EOS % 8.6 % (0.0-4.0); HEMOGLOBIN 9.3 g/dL (12.0-18.0); LYMPH % 27.6 % (20.0-40.0); MEAN CELL VOLUME 96.4 fL (80.0-94.0); MEAN CORPUSCULAR HGB CONC 34.2 g/dL (33.0-37.0); MEAN PLATELET VOLUME 7.5 fL (7.2-11.7); MONO # 0.7 K/uL (0.0-0.8); MONO % 9.4 % (0.0-10.0); NEUT # 3.8 K/uL (1.8-7.0); NEUT % 53.3 % (50.0-75.0); NRBC % 0.1 % (0.0-2.0); RBC 2.83 Mil/uL (4.40-5.90); WHITE BLOOD COUNT 7.1 K/uL (4.8-10.8)
[2018-01-04 07:03] LABS: ALB/GLOB RATIO 0.8 (1.0-2.1); ALBUMIN 3.3 g/dL (3.5-5.0); ALT/SGPT 37 U/L (21-72); AST/SGOT 42 U/L (17-59); BLOOD UREA NITROGEN 17 mg/dL (9-20); CALCIUM 9.4 mg/dl (8.6-10.4); GFR AFRICAN-AMERICAN > 60; GFR NON-AFRICAN AMERICAN > 60
[2018-01-04] MEDS: (Novolin R) Insulin Human Regular 100 units/ml vial SC SCH ×7 (08:06→22:46)
[2018-01-04] MEDS: Pantoprazole 40 mg EC Tab PO SCH (09:35)
[2018-01-04] MEDS: Saccharomyces Boulardi 250 mg Cap PO SCH ×2 (09:35→17:54)
--- NOTE | 2018-01-04 11:52 | CP.PCM.PN ---
Objective - Vital Signs/Intake and Output Vital Signs (last 24 hours): Temp Pulse Resp BP Pulse Ox 98.1 F 92 H 20 106/71 98 01/04/18 08:12 01/04/18 08:12 01/04/18 08:12 01/04/18 08:12 01/04/18 08:12 Intake and Output: 01/04/18 01/04/18 06:59 18:59 Intake Total 450 Balance 450 - Medications Medications: Current Medications Benzonatate (Tessalon Perles) 100 mg PO TID PRN PRN Reason: FOR COUGH Last Admin: 01/03/18 13:45 Dose: 100 mg Dextrose (Dextrose 50% Inj) 0 ml IVP .STAT PRN; Protocol PRN Reason: Hypoglycemia Protocol Dextrose (Glutose 15) 0 gm PO .ONCE PRN; Protocol PRN Reason: Hypoglycemia Protocol Docusate Sodium (Colace) 100 mg PO Q12 PRN PRN Reason: Constipation Last Admin: 01/03/18 09:57 Dose: 100 mg Glucagon (Glucagen Diagnostic Kit) 0 mg IM .STAT PRN; Protocol PRN Reason: Hypoglycemia Protocol Piperacillin Sod/Tazobactam Sod (Zosyn 3.375 Gm Iv Premix) 3.375 gm in 50 mls @ 100 mls/hr IVPB Q8H [facility] PRN Reason: Protocol Last Admin: 01/04/18 05:30 Dose: 100 mls/hr Insulin Human NPH (Novolin N) 44 unit SC HS [facility] Last Admin: 01/03/18 21:51 Dose: 44 unit Insulin Human Regular (Novolin R) 0 unit SC ACHS [facility] Last Admin: 01/04/18 08:06 Dose: Not Given Insulin Human Regular (Novolin R) 14 unit SC AC [facility] Last Admin: 01/04/18 08:08 Dose: 14 unit Pantoprazole Sodium (Protonix Ec Tab) 40 mg PO DAILY [facility] Last Admin: 01/04/18 09:35 Dose: 40 mg Saccharomyces Boulardii (Florastor) 250 mg PO BID [facility] Last Admin: 01/04/18 09:35 Dose: 250 mg Trazodone HCl (Desyrel) 50 mg PO HS PRN PRN Reason: Insomnia - Labs Labs: 01/04/18 06:30 01/04/18 06:30 PT 15.0 SECONDS (9.7-12.2) H 03/06/18 22:10 INR 1.3 12/17/17 22:10 APTT 27 SECONDS (21-34) 12/17/17 22:10
--- NOTE | 2018-01-04 11:52 | CP.PCM.PN ---
Subjective - Date & Time of Evaluation Date of Evaluation: 01/04/18 Time of Evaluation: 09:30 - Subjective Subjective: Podiatry Progress Note - Dr. David KnightM seen and evaluated at bedside 17 days s/p left foot I&D (DOS 12/18/17) and 8 days s/p follow up left foot I&D (DOS 12/27/17). Patient is seen resting comfortably in bed, in NAD, and AA0x3. Patient reports that the pain has improved. Reports that he feels the swelling has gone down. No acute events overnight. Offers no other pedal complaints. Denies N/V/F/D/C/SOB/WINTER/dizziness. Objective - Vital Signs/Intake and Output Vital Signs (last 24 hours): Temp Pulse Resp BP Pulse Ox 98.1 F 92 H 20 106/71 98 01/04/18 08:12 01/04/18 08:12 01/04/18 08:12 01/04/18 08:12 01/04/18 08:12 Intake and Output: 01/04/18 01/04/18 06:59 18:59 Intake Total 450 Balance 450 - Medications Medications: Current Medications Benzonatate (Tessalon Perles) 100 mg PO TID PRN PRN Reason: FOR COUGH Last Admin: 01/03/18 13:45 Dose: 100 mg Dextrose (Dextrose 50% Inj) 0 ml IVP .STAT PRN; Protocol PRN Reason: Hypoglycemia Protocol Dextrose (Glutose 15) 0 gm PO .ONCE PRN; Protocol PRN Reason: Hypoglycemia Protocol Docusate Sodium (Colace) 100 mg PO Q12 PRN PRN Reason: Constipation Last Admin: 01/03/18 09:57 Dose: 100 mg Glucagon (Glucagen Diagnostic Kit) 0 mg IM .STAT PRN; Protocol PRN Reason: Hypoglycemia Protocol Piperacillin Sod/Tazobactam Sod (Zosyn 3.375 Gm Iv Premix) 3.375 gm in 50 mls @ 100 mls/hr IVPB Q8H [facility] PRN Reason: Protocol Last Admin: 01/04/18 05:30 Dose: 100 mls/hr Insulin Human NPH (Novolin N) 44 unit SC HS [facility] Last Admin: 01/03/18 21:51 Dose: 44 unit Insulin Human Regular (Novolin R) 0 unit SC ACHS [facility] Last Admin: 01/04/18 08:06 Dose: Not Given Insulin Human Regular (Novolin R) 14 unit SC AC [facility] Last Admin: 01/04/18 08:08 Dose: 14 unit Pantoprazole Sodium (Protonix Ec Tab) 40 mg PO DAILY [facility] Last Admin: 01/04/18 09:35 Dose: 40 mg Saccharomyces Boulardii (Florastor) 250 mg PO BID [facility] Last Admin: 01/04/18 09:35 Dose: 250 mg Trazodone HCl (Desyrel) 50 mg PO HS PRN PRN Reason: Insomnia - Labs Labs: 01/04/18 06:30 01/04/18 06:30 PT 15.0 SECONDS (9.7-12.2) H 12/17/17 22:10 INR 1.3 12/17/17 22:10 APTT 27 SECONDS (21-34) 12/17/17 22:10 - Constitutional Appears: Well, Non-toxic, No Acute Distress - Extremities Exam Extremities Exam: absent: Calf Tenderness Additional comments: Left lower extremity exam Dressing to left foot remains intact with a moderate amount of strikethrough present overlying wound at bases of 4th and 5th digit. DERM: Dorsal, medial and plantar incisions measuring roughly 5 cm in length appreciated as well as roughly 7 cm lateral ankle incision. All skin edges well coapted and all sutures intact. Serosanguinous drainage able to be expressed from dorsal incision. Dorsolateral ulceration measuring 1cm x 1.5cm x 0.5cm slightly macerated with approximately 2cc of purulent drainage able to be expressed; no probe to bone, absent malodor. Mild periwound erythema noted to dorsal incision and dorsolateral ulceration. VASC: Non-palpable DP/PT noted secondary to edema. Nonpitting edema remains to entire left foot. FURNITURE DUSTER less than 3 seconds noted to all digits NEURO: Gross sensation intact ORTHO: No pain on palpation noted to incision sites x4. No pain on palpation to dorsolateral ulceration. - Neurological Exam Neurological Exam: Alert, Awake, Oriented x3 - Psychiatric Exam Psychiatric exam: Normal Affect, Normal Mood Assessment and Plan - Assessment and Plan (Free Text) Assessment: 52M 17 days s/p left foot I&D (DOS 12/18/17) and 8 days s/p follow up left foot I& D (DOS 12/27/17). Plan: Patient seen and evaluated at bedside Discussed with attending, Dr. Hernandez Afebrile, WBC 7.1 Ankle and tib/fib xrays both negative for soft tissue emphysema Continue local wound care - betadine soaked 4x4s, ABD, kerlix -Approximately 2cc purulence able to be expressed from wound proximal to 4th and 5th digits -Reinforce tight glucose control for wound healing Patient is to remain strictly NWB LLE with the assistance of walker -Patient noncompliant despite maximal education No further surgical intervention planned at this time Continue abx - Zosyn 3.375g IV Stable from podiatry standpoint Patient is to follow up with Dr. Hernandez in the podiatry clinic (Saturday afternoons 12-3) for continued wound care Podiatry will continue to follow patient while in house
[2018-01-04] MEDS: (Novolin N) Insulin Human Isophane (NPH) 100 u/ml 10 ml vial SC SCH (22:46)
--- NOTE | 2018-01-05 03:30 | CP.PCM.PN ---
<ZahidaLacy - Last Filed: 01/05/18 03:30> Subjective - Date & Time of Evaluation Date of Evaluation: 01/05/18 Time of Evaluation: 03:30 - Subjective Subjective: Progress Note Patient seen and examined at bedside. No acute events overnight. Patient's glucose levels have not been as stable overnight. No other acute events overnight. Patient denies fever, chills. Patient tolerating pain medication well. Objective - Vital Signs/Intake and Output Vital Signs (last 24 hours): Temp Pulse Resp BP Pulse Ox 97.1 F L 89 18 126/70 99 01/04/18 23:44 01/04/18 23:44 01/04/18 23:44 01/04/18 23:44 01/04/18 23:44 Intake and Output: 01/04/18 01/05/18 18:59 06:59 Intake Total 410 Balance 410 - Medications Medications: Current Medications Benzonatate (Tessalon Perles) 100 mg PO TID PRN PRN Reason: FOR COUGH Last Admin: 01/03/18 13:45 Dose: 100 mg Dextrose (Dextrose 50% Inj) 0 ml IVP .STAT PRN; Protocol PRN Reason: Hypoglycemia Protocol Dextrose (Glutose 15) 0 gm PO .ONCE PRN; Protocol PRN Reason: Hypoglycemia Protocol Docusate Sodium (Colace) 100 mg PO Q12 PRN PRN Reason: Constipation Last Admin: 01/03/18 09:57 Dose: 100 mg Glucagon (Glucagen Diagnostic Kit) 0 mg IM .STAT PRN; Protocol PRN Reason: Hypoglycemia Protocol Piperacillin Sod/Tazobactam Sod (Zosyn 3.375 Gm Iv Premix) 3.375 gm in 50 mls @ 100 mls/hr IVPB Q8H [facility] PRN Reason: Protocol Last Admin: 01/04/18 22:45 Dose: 100 mls/hr Insulin Human NPH (Novolin N) 44 unit SC HS [facility] Last Admin: 01/04/18 22:46 Dose: Not Given Insulin Human Regular (Novolin R) 0 unit SC ACHS [facility] Last Admin: 01/04/18 22:46 Dose: Not Given Insulin Human Regular (Novolin R) 14 unit SC AC [facility] Last Admin: 01/04/18 17:25 Dose: 14 unit Oxycodone/Acetaminophen (Percocet 5/325 Mg Tab) 1 tab PO Q8H PRN PRN Reason: Pain, moderate (4-7) Stop: 01/07/18 14:20 Last Admin: 01/04/18 14:37 Dose: 1 tab Pantoprazole Sodium (Protonix Ec Tab) 40 mg PO DAILY [facility] Last Admin: 01/04/18 09:35 Dose: 40 mg Saccharomyces Boulardii (Florastor) 250 mg PO BID [facility] Last Admin: 01/04/18 17:54 Dose: 250 mg Trazodone HCl (Desyrel) 50 mg PO HS PRN PRN Reason: Insomnia - Labs Labs: 01/04/18 06:30 01/04/18 06:30 PT 15.0 SECONDS (9.7-12.2) H 12/17/17 22:10 INR 1.3 12/17/17 22:10 APTT 27 SECONDS (21-34) 12/17/17 22:10 - Additional Findings Additional findings: - Constitutional Appears: Non-toxic, No Acute Distress - Head Exam Head Exam: ATRAUMATIC, NORMAL INSPECTION, NORMOCEPHALIC - Eye Exam Eye Exam: EOMI, Normal appearance Pupil Exam: NORMAL ACCOMODATION - ENT Exam ENT Exam: Mucous Membranes Moist, Normal Exam - Neck Exam Neck Exam: Full ROM, Normal Inspection - Respiratory Exam Respiratory Exam: Clear to Ausculation Bilateral, NORMAL BREATHING PATTERN, no accessory muscle use - Cardiovascular Exam Cardiovascular Exam: REGULAR RHYTHM, +S1, +S2 - GI/Abdominal Exam GI & Abdominal Exam: Soft, Normal Bowel Sounds. absent: Tenderness - Extremities Exam Extremities Exam: Full ROM. absent: Pedal Edema Additional comments: left foot dressings c/d/i patient - Neurological Exam Neurological Exam: Alert, Awake, CN II-XII Intact - Psychiatric Exam Psychiatric exam: Normal Affect, Normal Mood - Skin Skin Exam: Dry, Intact, Pallor (baseline for patient), Warm Assessment and Plan - Assessment and Plan (Free Text) Assessment: (1) Diabetic foot ulcers Assessment & Plan: Podiatry: Dr. Hernandez * continue non-weight bearing to left foot, patient will need outpatient follow up with Dr. Hernandez * s/p left foot incision, drainage and debridement of non-viable tissue on with Dr. Hernandez * S/p bedside incision and drainage 12/18/17 * S/p left foot incision and drainage for left foot soft tissue emphysema 12/18/17 * wound care and pain management as per podiatry team * Per podiatry: no further surgical management at this point. ID: Dr. Brooks, help appreciated - patient may be able to have rocephin 2g/IV daily for 6 weeks rather than zosyn q8h - suggested to have CTA and vascular eval (+) Leukocytosis, stable * Infectious Disease consult: Dr Brooks * Blood culture negative at 3 days x2 * Left foot wound culture:Proteus Mirabilis and Group G Strep Imaging: * X-ray left foot - gas emphysema noted dorsum and plantar aspect of mid-foot * Left foot X-rays s/p bedside I&D (12/18/17): Postsurgical changes with subcutaneous emphysema seen. Focal osteopenia in the 4th and 5th metatarsal heads may reflect underlying osteomyelitis. * Left foot X-rays left tib-fib (12/18/17): Subcutaneous emphysema is seen tracking along the lateral lower extremity. * Left foot X-ray (12/17/17): Extensive left forefoot subcutaneous gas and poor visualization of the 4th metatarsal head is likely related to osteomyelitis and soft tissue abscess. * MRI to assess for osteomyelitis - Findings consistent with osteomyelitis involving the distal portion and the head of the 4th metatarsal and also involving the proximal phalanx of the 4th toe. * Suspicious for septic arthritis of the 4th metatarsophalangeal joint. * Bone marrow edema and questionable small erosion noted at the head of the 3rd metatarsal bone may represent an early osteomyelitis. * Mild bone marrow edema noted at the proximal phalanx of the 3rd and 5th toe likely represent reactive changes due to hyperemia. * Diffuse soft tissue infection/inflammatory process at the lateral distal portion of the left foot associated with foci of air in the subcutaneous and deep soft tissue. The possibility of small abscess formation cannot be totally excluded in this noncontrast enhanced study. * Soft tissue edema and diffuse myositis at the mid and distal portion of the left foot. * As per podiatry note (12/20/17): Patient was informed of the MRI result with possible treatment options. Amputation of left 3rd 4th 5th rays discussed, which patient adamantly refused. * JASPER/PVR: Right JASPER non diagnostic due to arterial wall calcification, PVR waveforms show normal arterial perfusion to bilateral lower extremities at rest , normal toe brachial indexes left JASPER non diagnostic due to arterial wall calcification. PVR waveforms have normal arterial perfusion to bilateral lower extremities at rest normal toe brachial indexes. recommend CTA Medication/Management: Pain: patient was on morphine at high doses, weaned down. Continue Percocet 5/325 q6h (started on 12/26) Discontinued: Meropenem 500mg IV Q6H (Started 12/18/17), Vancomycin 1g IV Q12H ( Started 12/18/17) Zosyn (Started 12/20/17). Per Lee Blair to finish in 6 weeks on 01/31/18 Florastor 250mg PO BID PT/OT treatment and evaluation PICC line placed right arm on 12/23 (2) Uncontrolled diabetes mellitus Assessment & Plan: Endocrinology consults, Dr. Mcconnell, help appreciated Hgb A1c (12/18/17): 12.3 Hgb A1c (12/30/17): 11.1 Accuchecks ACHS Novolin R 14 u SC AC Novolin R SC ACHS NPH 44u SC HS Endo Consult: Dr. Mcconnell Hypoglycemia protocol (3) HTN (hypertension) Assessment & Plan: BP well controlled continue to monitor (4) Prophylaxis Assessment & Plan: Protonix 40mg PO QD DVT: SCD and Heparin SC Physical therapy: non-weight bearing to left foot, advance per podiatry recommendations Heart healthy, diabetic diet (edited to low carbohydrate consistent diet 01/04) Diabetic fund development manager referral Colace 100mg PO q12h prn for constipation Zosyn (Started 12/20/17). Per Lee Blair to finish in 6 weeks on 01/31/[address] Claudia House Eng DO PGY1 <Giuliano Taylor H - Last Filed: 01/05/18 12:12> Objective - Vital Signs/Intake and Output Vital Signs (last 24 hours): Temp Pulse Resp BP Pulse Ox 97.6 F 94 H 20 99/68 L 98 01/05/18 07:45 01/05/18 07:45 01/05/18 07:45 01/05/18 07:45 01/05/18 07:45 Intake and Output: 01/05/18 01/05/18 06:59 18:59 Intake Total 410 179 Balance 410 179 - Medications Medications: Current Medications Benzonatate (Tessalon Perles) 100 mg PO TID PRN PRN Reason: FOR COUGH Last Admin: 01/03/18 13:45 Dose: 100 mg Dextrose (Dextrose 50% Inj) 0 ml IVP .STAT PRN; Protocol PRN Reason: Hypoglycemia Protocol Dextrose (Glutose 15) 0 gm PO .ONCE PRN; Protocol PRN Reason: Hypoglycemia Protocol Docusate Sodium (Colace) 100 mg PO Q12 PRN PRN Reason: Constipation Last Admin: 01/03/18 09:57 Dose: 100 mg Glucagon (Glucagen Diagnostic Kit) 0 mg IM .STAT PRN; Protocol PRN Reason: Hypoglycemia Protocol Piperacillin Sod/Tazobactam Sod (Zosyn 3.375 Gm Iv Premix) 3.375 gm in 50 mls @ 100 mls/hr IVPB Q8H [facility] PRN Reason: Protocol Last Admin: 01/05/18 05:41 Dose: 100 mls/hr Insulin Human NPH (Novolin N) 44 unit SC HS [facility] Last Admin: 01/04/18 22:46 Dose: Not Given Insulin Human Regular (Novolin R) 0 unit SC ACHS [facility] Last Admin: 01/05/18 08:19 Dose: 4 unit Insulin Human Regular (Novolin R) 14 unit SC AC [facility] Last Admin: 01/05/18 08:19 Dose: 14 unit Oxycodone/Acetaminophen (Percocet 5/325 Mg Tab) 1 tab PO Q8H PRN PRN Reason: Pain, moderate (4-7) Stop: 01/07/18 14:20 Last Admin: 01/05/18 05:45 Dose: 1 tab Pantoprazole Sodium (Protonix Ec Tab) 40 mg PO DAILY [facility] Last Admin: 01/05/18 09:04 Dose: 40 mg Saccharomyces Boulardii (Florastor) 250 mg PO BID [facility] Last Admin: 01/05/18 09:04 Dose: 250 mg Trazodone HCl (Desyrel) 50 mg PO HS PRN PRN Reason: Insomnia - Labs Labs: 01/05/18 07:09 01/04/18 06:30 PT 15.0 SECONDS (9.7-12.2) H 12/17/17 22:10 INR 1.3 12/17/17 22:10 APTT 27 SECONDS (21-34) 12/17/17 22:10 Attending/Attestation - Attestation I have personally seen and examined this patient.: Yes I have fully participated in the care of the patient.: Yes I have reviewed all pertinent clinical information, including history, physical exam and plan: Yes Notes (Text): 01/05/18 12:11 Medical attending: Patient was seen and examined by me. Agree with the above note. Currently no new news or acute changes. He is often youtube His sugar were a little higher than before today. Otherwise no episodes of hypoglycemia like we saw previously So as mentioned previously he will be on abx until January 31. He needs to avoid placing weight to the affected foot. thank you Giuliano Taylor
[2018-01-05] MEDS: Piperacill/Tazo 3.375gm in Dex 3.375 GM/50 ML BAG IVPB SCH ×3 (05:41→22:15)
[2018-01-05] MEDS: Oxycodone/Acetaminophen 5/325 mg Tab PO PRN ×2 (05:45→13:05)
[2018-01-05 07:21] LABS: BASO # 0.1 K/uL (0.0-0.2); BASO % 1.1 % (0.0-2.0); EOS # 0.6 K/uL (0.0-0.7); EOS % 8.4 % (0.0-4.0); HEMOGLOBIN 9.5 g/dL (12.0-18.0); LYMPH # 1.9 K/uL (1.0-4.3); LYMPH % 27.9 % (20.0-40.0); MEAN CELL VOLUME 97.3 fL (80.0-94.0); MEAN CORPUSCULAR HEMOGLOBIN 33.2 pg (27.0-31.0); MEAN CORPUSCULAR HGB CONC 34.1 g/dL (33.0-37.0); MEAN PLATELET VOLUME 7.7 fL (7.2-11.7); MONO # 0.7 K/uL (0.0-0.8); MONO % 10.3 % (0.0-10.0); NEUT # 3.5 K/uL (1.8-7.0); NEUT % 52.3 % (50.0-75.0); RBC 2.87 Mil/uL (4.40-5.90); RED CELL DISTRIBUTION WIDTH 15.3 % (11.5-14.5); WHITE BLOOD COUNT 6.8 K/uL (4.8-10.8)
[2018-01-05] MEDS: (Novolin R) Insulin Human Regular 100 units/ml vial SC SCH ×8 (08:19→22:17)
[2018-01-05] MEDS: Saccharomyces Boulardi 250 mg Cap PO SCH ×2 (09:04→17:22)
[2018-01-05] MEDS: Pantoprazole 40 mg EC Tab PO SCH (09:04)
--- NOTE | 2018-01-05 15:41 | CP.PCM.PN ---
Subjective - Date & Time of Evaluation Date of Evaluation: 01/05/18 Time of Evaluation: 13:00 - Subjective Subjective: Podiatry Progress Note - Dr. David KnightM seen and evaluated at bedside 18 days s/p left foot I&D (DOS 12/18/17) and 9 days s/p follow up left foot I&D (DOS 12/27/17). Patient is seen resting comfortably in bed, in NAD, and AA0x3. Patient reports that the pain has improved. Reports that he feels the swelling has gone down. No acute events overnight. Offers no other pedal complaints. Denies N/V/F/D/C/SOB/WINTER/dizziness. Objective - Vital Signs/Intake and Output Vital Signs (last 24 hours): Temp Pulse Resp BP Pulse Ox 97.6 F 94 H 20 99/68 L 98 01/05/18 07:45 01/05/18 07:45 01/05/18 07:45 01/05/18 07:45 01/05/18 07:45 Intake and Output: 01/05/18 01/05/18 06:59 18:59 Intake Total 410 580 Balance 410 580 - Medications Medications: Current Medications Benzonatate (Tessalon Perles) 100 mg PO TID PRN PRN Reason: FOR COUGH Last Admin: 01/03/18 13:45 Dose: 100 mg Dextrose (Dextrose 50% Inj) 0 ml IVP .STAT PRN; Protocol PRN Reason: Hypoglycemia Protocol Last Admin: 01/05/18 14:14 Dose: 50 ml Dextrose (Glutose 15) 0 gm PO .ONCE PRN; Protocol PRN Reason: Hypoglycemia Protocol Docusate Sodium (Colace) 100 mg PO Q12 PRN PRN Reason: Constipation Last Admin: 01/03/18 09:57 Dose: 100 mg Glucagon (Glucagen Diagnostic Kit) 0 mg IM .STAT PRN; Protocol PRN Reason: Hypoglycemia Protocol Piperacillin Sod/Tazobactam Sod (Zosyn 3.375 Gm Iv Premix) 3.375 gm in 50 mls @ 100 mls/hr IVPB Q8H [facility] PRN Reason: Protocol Last Admin: 01/05/18 13:09 Dose: 100 mls/hr Insulin Human NPH (Novolin N) 44 unit SC HS [facility] Last Admin: 01/04/18 22:46 Dose: Not Given Insulin Human Regular (Novolin R) 0 unit SC ACHS [facility] Last Admin: 01/05/18 12:30 Dose: Not Given Insulin Human Regular (Novolin R) 14 unit SC AC [facility] Last Admin: 01/05/18 12:15 Dose: 14 unit Oxycodone/Acetaminophen (Percocet 5/325 Mg Tab) 1 tab PO Q8H PRN PRN Reason: Pain, moderate (4-7) Stop: 01/07/18 14:20 Last Admin: 01/05/18 13:05 Dose: 1 tab Pantoprazole Sodium (Protonix Ec Tab) 40 mg PO DAILY [facility] Last Admin: 01/05/18 09:04 Dose: 40 mg Saccharomyces Boulardii (Florastor) 250 mg PO BID [facility] Last Admin: 01/05/18 09:04 Dose: 250 mg Trazodone HCl (Desyrel) 50 mg PO HS PRN PRN Reason: Insomnia - Labs Labs: 01/05/18 07:09 01/04/18 06:30 PT 15.0 SECONDS (9.7-12.2) H 12/17/17 22:10 INR 1.3 12/17/17 22:10 APTT 27 SECONDS (21-34) 12/17/17 22:10 - Constitutional Appears: Well, Non-toxic, No Acute Distress - Extremities Exam Extremities Exam: absent: Calf Tenderness Additional comments: Left lower extremity exam Dressing to left foot remains intact with a moderate amount of strikethrough present overlying wound at bases of 4th and 5th digit. DERM: Dorsal, medial and plantar incisions measuring roughly 5 cm in length appreciated as well as roughly 7 cm lateral ankle incision. All skin edges well coapted and all sutures intact. No drainage noted from dorsal incision today. Dorsolateral ulceration measuring 1cm x 1.5cm x 0.5cm slightly macerated and protruding soft tissue with approximately 3cc of purulent drainage able to be expressed; no probe to bone, absent malodor. Mild periwound erythema noted to dorsal incision and dorsolateral ulceration. VASC: Non-palpable DP/PT noted secondary to edema. Nonpitting edema remains to entire left foot. E D TECH less than 3 seconds noted to all digits NEURO: Gross sensation intact ORTHO: No pain on palpation noted to incision sites x4. No pain on palpation to dorsolateral ulceration. - Neurological Exam Neurological Exam: Alert, Awake, Oriented x3 - Psychiatric Exam Psychiatric exam: Normal Affect, Normal Mood Assessment and Plan - Assessment and Plan (Free Text) Assessment: 52M 18 days s/p left foot I&D (DOS 12/18/17) and 9 days s/p follow up left foot I& D (DOS 12/27/17). Plan: Patient seen and evaluated at bedside Discussed with attending, Dr. Hernandez Afebrile, WBC 76.8 Ankle and tib/fib xrays both negative for soft tissue emphysema Continue local wound care - betadine soaked 4x4s, ABD, kerlix -Approximately 3cc purulence able to be expressed from wound proximal to 4th and 5th digits -Reinforce tight glucose control for wound healing Patient is to remain strictly NWB LLE with the assistance of walker -Patient noncompliant despite maximal education No further surgical intervention planned at this time Continue abx - Zosyn 3.375g IV Stable from podiatry standpoint Patient is to follow up with Dr. Hernandez in the podiatry clinic (Saturday afternoons 12-3) for continued wound care Podiatry will continue to follow patient while in house
[2018-01-05] MEDS ORDERED: Dextrose 50% SYRINGE Inj (50 ml) IV PRN (16:15)
[2018-01-05] MEDS ORDERED: Glucagon Recombinant 1 mg Inj IM PRN (16:15)
[2018-01-05] MEDS: (Novolin N) Insulin Human Isophane (NPH) 100 u/ml 10 ml vial SC SCH (22:19)
[2018-01-06] MEDS: Oxycodone/Acetaminophen 5/325 mg Tab PO PRN (06:30)
[2018-01-06] MEDS: Piperacill/Tazo 3.375gm in Dex 3.375 GM/50 ML BAG IVPB SCH ×3 (06:41→22:29)
[2018-01-06 07:53] LABS: BASO # 0.1 K/uL (0.0-0.2); BASO % 1.1 % (0.0-2.0); EOS # 0.4 K/uL (0.0-0.7); EOS % 7.1 % (0.0-4.0); HEMOGLOBIN 9.4 g/dL (12.0-18.0); MEAN CELL VOLUME 96.4 fL (80.0-94.0); MEAN CORPUSCULAR HEMOGLOBIN 33.1 pg (27.0-31.0); MEAN CORPUSCULAR HGB CONC 34.3 g/dL (33.0-37.0); MEAN PLATELET VOLUME 7.6 fL (7.2-11.7); MONO # 0.7 K/uL (0.0-0.8); MONO % 12.2 % (0.0-10.0); NEUT # 2.8 K/uL (1.8-7.0); NEUT % 46.6 % (50.0-75.0); RBC 2.83 Mil/uL (4.40-5.90); RED CELL DISTRIBUTION WIDTH 15.6 % (11.5-14.5)
[2018-01-06 08:10] LABS: BLOOD UREA NITROGEN 15 mg/dL (9-20); CALCIUM 9.3 mg/dl (8.6-10.4); GFR AFRICAN-AMERICAN > 60; GFR NON-AFRICAN AMERICAN > 60
[2018-01-06] MEDS: Saccharomyces Boulardi 250 mg Cap PO SCH ×2 (09:53→17:54)
[2018-01-06] MEDS: (Novolin R) Insulin Human Regular 100 units/ml vial SC SCH ×7 (09:53→21:46)
[2018-01-06] MEDS: Pantoprazole 40 mg EC Tab PO SCH (09:53)
--- NOTE | 2018-01-06 11:24 | CP.PCM.PN ---
Subjective - Date & Time of Evaluation Date of Evaluation: 01/06/18 Time of Evaluation: 11:21 - Subjective Subjective: Podiatry Progress Note - Dr. David KnightM seen and evaluated at bedside 19 days s/p left foot I&D (DOS 12/18/17) and 10 days s/p follow up left foot I&D (DOS 12/27/17). Patient is seen resting comfortably in bed, in NAD, and AA0x3. Patient reports that the pain has improved. Reports that he feels the swelling has gone down. No acute events overnight. Offers no other pedal complaints. Denies N/V/F/D/C/SOB/WINTER/dizziness. Objective - Vital Signs/Intake and Output Vital Signs (last 24 hours): Temp Pulse Resp BP Pulse Ox 98.3 F 90 20 129/81 97 01/06/18 07:42 01/06/18 07:42 01/06/18 07:42 01/06/18 07:42 01/06/18 07:42 Intake and Output: 01/06/18 01/06/18 06:59 18:59 Intake Total 350 250 Balance 350 250 - Medications Medications: Current Medications Benzonatate (Tessalon Perles) 100 mg PO TID PRN PRN Reason: FOR COUGH Last Admin: 01/03/18 13:45 Dose: 100 mg Dextrose (Dextrose 50% Inj) 0 ml IVP .STAT PRN; Protocol PRN Reason: Hypoglycemia Protocol Last Admin: 01/05/18 14:14 Dose: 50 ml Dextrose (Glutose 15) 0 gm PO .ONCE PRN; Protocol PRN Reason: Hypoglycemia Protocol Dextrose (Dextrose 50% Inj) 0 ml IV STAT PRN; Protocol PRN Reason: Hypoglycemia Protocol Dextrose (Glutose 15) 0 gm PO ONCE PRN; Protocol PRN Reason: Hypoglycemia Protocol Docusate Sodium (Colace) 100 mg PO Q12 PRN PRN Reason: Constipation Last Admin: 01/03/18 09:57 Dose: 100 mg Glucagon (Glucagen Diagnostic Kit) 0 mg IM .STAT PRN; Protocol PRN Reason: Hypoglycemia Protocol Glucagon (Glucagen Diagnostic Kit) 0 mg IM STAT PRN; Protocol PRN Reason: Hypoglycemia Protocol Piperacillin Sod/Tazobactam Sod (Zosyn 3.375 Gm Iv Premix) 3.375 gm in 50 mls @ 100 mls/hr IVPB Q8H [facility] PRN Reason: Protocol Last Admin: 01/06/18 06:41 Dose: 100 mls/hr Dextrose (Dextrose 5% In Water 1000 Ml) 1,000 mls @ 0 mls/hr IV .Q0M PRN; Protocol; Per Protocol PRN Reason: Hypoglycemia Protocol Insulin Human NPH (Novolin N) 44 unit SC HS [facility] Last Admin: 01/05/18 22:19 Dose: Not Given Insulin Human Regular (Novolin R) 0 unit SC ACHS [facility] Last Admin: 01/06/18 09:53 Dose: 3 unit Insulin Human Regular (Novolin R) 14 unit SC AC [facility] Last Admin: 01/06/18 09:54 Dose: 14 unit Oxycodone/Acetaminophen (Percocet 5/325 Mg Tab) 1 tab PO Q8H PRN PRN Reason: Pain, moderate (4-7) Stop: 01/07/18 14:20 Last Admin: 01/06/18 06:30 Dose: 1 tab Pantoprazole Sodium (Protonix Ec Tab) 40 mg PO DAILY [facility] Last Admin: 01/06/18 09:53 Dose: 40 mg Saccharomyces Boulardii (Florastor) 250 mg PO BID [facility] Last Admin: 01/06/18 09:53 Dose: 250 mg Trazodone HCl (Desyrel) 50 mg PO HS PRN PRN Reason: Insomnia - Labs Labs: 01/06/18 07:47 01/06/18 07:47 PT 15.0 SECONDS (9.7-12.2) H 12/17/17 22:10 INR 1.3 12/17/17 22:10 APTT 27 SECONDS (21-34) 12/17/17 22:10 - Constitutional Appears: Well, Non-toxic, No Acute Distress - Extremities Exam Additional comments: Left lower extremity exam Dressing to left foot remains intact with a moderate amount of strikethrough present overlying wound at bases of 4th and 5th digit. DERM: Dorsal, medial and plantar incisions measuring roughly 5 cm in length appreciated as well as roughly 7 cm lateral ankle incision. All skin edges well coapted and all sutures intact. No drainage noted from dorsal incision today. Dorsolateral ulceration measuring 1cm x 1.5cm x 0.5cm slightly macerated and protruding soft tissue; no probe to bone, absent malodor. Mild periwound erythema noted to dorsal incision and dorsolateral ulceration. VASC: Non-palpable DP/PT noted secondary to edema. Nonpitting edema remains to entire left foot. ALTO SINGER less than 3 seconds noted to all digits NEURO: Gross sensation intact ORTHO: No pain on palpation noted to incision sites x4. No pain on palpation to dorsolateral ulceration. - Neurological Exam Neurological Exam: Alert, Awake, Oriented x3 - Psychiatric Exam Psychiatric exam: Normal Affect, Normal Mood Assessment and Plan - Assessment and Plan (Free Text) Assessment: 52M 19 days s/p left foot I&D (DOS 12/18/17) and 10 days s/p follow up left foot I &D (DOS 12/27/17). Plan: Patient seen and evaluated at bedside Discussed with attending, Dr. Hernandez Afebrile, WBC 6.0, glucose 299 Ankle and tib/fib xrays both negative for soft tissue emphysema Continue local wound care - betadine soaked 4x4s, ABD, kerlix -Approximately 3cc purulence able to be expressed from wound proximal to 4th and 5th digits -Reinforce tight glucose control for wound healing Patient is to remain strictly NWB LLE with the assistance of walker -Patient noncompliant despite maximal education No further surgical intervention planned at this time Continue abx - Zosyn 3.375g IV Stable from podiatry standpoint Patient is to follow up with Dr. Hernandez in the podiatry clinic (Saturday afternoons 12-3) for continued wound care Podiatry will continue to follow patient while in house
--- NOTE | 2018-01-06 15:52 | CP.PCM.PN ---
<ZahidaLacy - Last Filed: 01/06/18 16:00> Subjective - Date & Time of Evaluation Date of Evaluation: 01/06/18 Time of Evaluation: 15:49 - Subjective Subjective: Progress Note Patient seen and examined at bedside. No acute events overnight. Patient denies walking on his foot. Patient states podiatry produced clear fluid from his wound. Patient denies fever, chills, nausea, vomiting Objective - Vital Signs/Intake and Output Vital Signs (last 24 hours): Temp Pulse Resp BP Pulse Ox 98.3 F 90 20 129/81 97 01/06/18 07:42 01/06/18 07:42 01/06/18 07:42 01/06/18 07:42 01/06/18 07:42 Intake and Output: 01/06/18 01/06/18 06:59 18:59 Intake Total 350 800 Balance 350 800 - Medications Medications: Current Medications Benzonatate (Tessalon Perles) 100 mg PO TID PRN PRN Reason: FOR COUGH Last Admin: 01/03/18 13:45 Dose: 100 mg Dextrose (Dextrose 50% Inj) 0 ml IVP .STAT PRN; Protocol PRN Reason: Hypoglycemia Protocol Last Admin: 01/05/18 14:14 Dose: 50 ml Dextrose (Glutose 15) 0 gm PO .ONCE PRN; Protocol PRN Reason: Hypoglycemia Protocol Dextrose (Dextrose 50% Inj) 0 ml IV STAT PRN; Protocol PRN Reason: Hypoglycemia Protocol Dextrose (Glutose 15) 0 gm PO ONCE PRN; Protocol PRN Reason: Hypoglycemia Protocol Docusate Sodium (Colace) 100 mg PO Q12 PRN PRN Reason: Constipation Last Admin: 01/03/18 09:57 Dose: 100 mg Glucagon (Glucagen Diagnostic Kit) 0 mg IM .STAT PRN; Protocol PRN Reason: Hypoglycemia Protocol Glucagon (Glucagen Diagnostic Kit) 0 mg IM STAT PRN; Protocol PRN Reason: Hypoglycemia Protocol Piperacillin Sod/Tazobactam Sod (Zosyn 3.375 Gm Iv Premix) 3.375 gm in 50 mls @ 100 mls/hr IVPB Q8H [facility] PRN Reason: Protocol Last Admin: 01/06/18 13:55 Dose: 100 mls/hr Dextrose (Dextrose 5% In Water 1000 Ml) 1,000 mls @ 0 mls/hr IV .Q0M PRN; Protocol; Per Protocol PRN Reason: Hypoglycemia Protocol Insulin Human NPH (Novolin N) 44 unit SC HS [facility] Last Admin: 01/05/18 22:19 Dose: Not Given Insulin Human Regular (Novolin R) 0 unit SC ACHS [facility] Last Admin: 01/06/18 11:41 Dose: Not Given Insulin Human Regular (Novolin R) 14 unit SC AC [facility] Last Admin: 01/06/18 12:06 Dose: 14 unit Oxycodone/Acetaminophen (Percocet 5/325 Mg Tab) 1 tab PO Q8H PRN PRN Reason: Pain, moderate (4-7) Stop: 01/07/18 14:20 Last Admin: 01/06/18 06:30 Dose: 1 tab Pantoprazole Sodium (Protonix Ec Tab) 40 mg PO DAILY [facility] Last Admin: 01/06/18 09:53 Dose: 40 mg Saccharomyces Boulardii (Florastor) 250 mg PO BID [facility] Last Admin: 01/06/18 09:53 Dose: 250 mg Trazodone HCl (Desyrel) 50 mg PO PRN PRN Reason: Insomnia - Labs Labs: 01/06/18 07:47 01/06/18 07:47 PT 15.0 SECONDS (9.7-12.2) H 12/17/17 22:10 INR 1.3 12/17/17 22:10 APTT 27 SECONDS (21-34) 12/17/17 22:10 - Constitutional Appears: Non-toxic, No Acute Distress - Head Exam Head Exam: ATRAUMATIC, NORMAL INSPECTION, NORMOCEPHALIC - Eye Exam Eye Exam: EOMI, Normal appearance Pupil Exam: NORMAL ACCOMODATION, PERRL - ENT Exam ENT Exam: Mucous Membranes Moist, Normal Exam - Neck Exam Neck Exam: Full ROM, Normal Inspection. absent: Thyromegaly - Respiratory Exam Respiratory Exam: Clear to Ausculation Bilateral, NORMAL BREATHING PATTERN - Cardiovascular Exam Cardiovascular Exam: REGULAR RHYTHM, +S1, +S2. absent: Bradycardia, Tachycardia - GI/Abdominal Exam GI & Abdominal Exam: Soft, Normal Bowel Sounds. absent: Tenderness, Hyperactive Bowel Sounds - Extremities Exam Extremities Exam: Full ROM. absent: Pedal Edema Additional comments: Left foot wrapped ankle, no breakthrough drainage, dressings c/d/i - Back Exam Back Exam: Full ROM, NORMAL INSPECTION. absent: paraspinal tenderness, vertebral tenderness - Neurological Exam Neurological Exam: CN II-XII Intact, Normal Gait, Oriented x3 - Psychiatric Exam Psychiatric exam: Normal Affect, Normal Mood - Skin Skin Exam: Dry, Intact, Normal Color. absent: Pallor Assessment and Plan - Assessment and Plan (Free Text) Assessment: (1) Diabetic foot ulcers Assessment & Plan: Podiatry: Dr. Hernandez * continue non-weight bearing to left foot, patient will need outpatient follow up with Dr. Hernandez * s/p left foot incision, drainage and debridement of non-viable tissue on with Dr. Hernandez * S/p bedside incision and drainage 12/18/17 * S/p left foot incision and drainage for left foot soft tissue emphysema 12/18/17 * wound care and pain management as per podiatry team * Per podiatry: no further surgical management at this point. ID: Dr. Brooks, help appreciated - patient may be able to have rocephin 2g/IV daily for 6 weeks rather than zosyn q8h - suggested to have CTA and vascular eval (+) Leukocytosis, stable * Infectious Disease consult: Dr Brooks * Blood culture negative at 3 days x2 * Left foot wound culture:Proteus Mirabilis and Group G Strep Imaging: * X-ray left foot - gas emphysema noted dorsum and plantar aspect of mid-foot * Left foot X-rays s/p bedside I&D (12/18/17): Postsurgical changes with subcutaneous emphysema seen. Focal osteopenia in the 4th and 5th metatarsal heads may reflect underlying osteomyelitis. * Left foot X-rays left tib-fib (12/18/17): Subcutaneous emphysema is seen tracking along the lateral lower extremity. * Left foot X-ray (12/17/17): Extensive left forefoot subcutaneous gas and poor visualization of the 4th metatarsal head is likely related to osteomyelitis and soft tissue abscess. * MRI to assess for osteomyelitis - Findings consistent with osteomyelitis involving the distal portion and the head of the 4th metatarsal and also involving the proximal phalanx of the 4th toe. * Suspicious for septic arthritis of the 4th metatarsophalangeal joint. * Bone marrow edema and questionable small erosion noted at the head of the 3rd metatarsal bone may represent an early osteomyelitis. * Mild bone marrow edema noted at the proximal phalanx of the 3rd and 5th toe likely represent reactive changes due to hyperemia. * Diffuse soft tissue infection/inflammatory process at the lateral distal portion of the left foot associated with foci of air in the subcutaneous and deep soft tissue. The possibility of small abscess formation cannot be totally excluded in this noncontrast enhanced study. * Soft tissue edema and diffuse myositis at the mid and distal portion of the left foot. * As per podiatry note (12/20/17): Patient was informed of the MRI result with possible treatment options. Amputation of left 3rd 4th 5th rays discussed, which patient adamantly refused. * JASPER/PVR: Right JASPER non diagnostic due to arterial wall calcification, PVR waveforms show normal arterial perfusion to bilateral lower extremities at rest , normal toe brachial indexes left JASPER non diagnostic due to arterial wall calcification. PVR waveforms have normal arterial perfusion to bilateral lower extremities at rest normal toe brachial indexes. recommend CTA Medication/Management: Pain: patient was on morphine at high doses, weaned down. Continue Percocet 5/325 q6h (started on 12/26) Discontinued: Meropenem 500mg IV Q6H (Started 12/18/17), Vancomycin 1g IV Q12H ( Started 12/18/17) Zosyn (Started 12/20/17). Per Lee Blair to finish in 6 weeks on 01/31/18 Florastor 250mg PO BID PT/OT treatment and evaluation PICC line placed right arm on 12/23 (2) Uncontrolled diabetes mellitus Assessment & Plan: Endocrinology consults, Dr. Mcconnell, help appreciated Hgb A1c (12/18/17): 12.3 Hgb A1c (12/30/17): 11.1 Accuchecks ACHS Novolin R 14 u SC AC Novolin R SC ACHS NPH 44u SC HS Endo Consult: Dr. Mcconnell Hypoglycemia protocol (3) HTN (hypertension) Assessment & Plan: BP well controlled continue to monitor (4) Prophylaxis Assessment & Plan: Protonix 40mg PO QD DVT: SCD and Heparin SC Physical therapy: non-weight bearing to left foot, advance per podiatry recommendations Heart healthy, diabetic diet (edited to low carbohydrate consistent diet 01/04) Diabetic b2b managed service sales exec referral Colace 100mg PO q12h prn for constipation Zosyn (Started 12/20/17). Per Lee Blair to finish in 6 weeks on 01/31/[address] Claudia House Eng DO PGY1 <MarileeTreyzaki - Last Filed: 01/08/18 09:57> Objective - Vital Signs/Intake and Output Vital Signs (last 24 hours): Temp Pulse Resp BP Pulse Ox 98.5 F 95 H 20 122/82 99 01/08/18 07:47 01/08/18 07:47 01/08/18 07:47 01/08/18 07:47 01/08/18 07:47 Intake and Output: 01/08/18 01/08/18 06:59 18:59 Intake Total 700 Output Total 700 Balance 0 - Medications Medications: Current Medications Benzonatate (Tessalon Perles) 100 mg PO TID PRN PRN Reason: FOR COUGH Last Admin: 01/03/18 13:45 Dose: 100 mg Dextrose (Dextrose 50% Inj) 0 ml IVP .STAT PRN; Protocol PRN Reason: Hypoglycemia Protocol Last Admin: 01/05/18 14:14 Dose: 50 ml Dextrose (Glutose 15) 0 gm PO .ONCE PRN; Protocol PRN Reason: Hypoglycemia Protocol Dextrose (Dextrose 50% Inj) 0 ml IV STAT PRN; Protocol PRN Reason: Hypoglycemia Protocol Dextrose (Glutose 15) 0 gm PO ONCE PRN; Protocol PRN Reason: Hypoglycemia Protocol Docusate Sodium (Colace) 100 mg PO Q12 PRN PRN Reason: Constipation Last Admin: 01/03/18 09:57 Dose: 100 mg Glucagon (Glucagen Diagnostic Kit) 0 mg IM .STAT PRN; Protocol PRN Reason: Hypoglycemia Protocol Glucagon (Glucagen Diagnostic Kit) 0 mg IM STAT PRN; Protocol PRN Reason: Hypoglycemia Protocol Dextrose (Dextrose 5% In Water 1000 Ml) 1,000 mls @ 0 mls/hr IV .Q0M PRN; Protocol; Per Protocol PRN Reason: Hypoglycemia Protocol Piperacillin Sod/Tazobactam Sod (Zosyn 3.375 Gm Iv Premix) 3.375 gm in 50 mls @ 100 mls/hr IVPB Q8H [facility] PRN Reason: Protocol Insulin Human NPH (Novolin N) 44 unit SC HS [facility] Last Admin: 01/07/18 21:52 Dose: 44 unit Insulin Human Regular (Novolin R) 0 unit SC ACHS [facility] Last Admin: 01/08/18 07:51 Dose: Not Given Insulin Human Regular (Novolin R) 14 unit SC AC [facility] Last Admin: 01/08/18 08:30 Dose: 14 unit Oxycodone/Acetaminophen (Percocet 5/325 Mg Tab) 1 tab PO Q8H PRN PRN Reason: Pain, moderate (4-7) Stop: 01/11/18 08:30 Pantoprazole Sodium (Protonix Ec Tab) 40 mg PO DAILY [facility] Last Admin: 01/07/18 10:51 Dose: 40 mg Saccharomyces Boulardii (Florastor) 250 mg PO BID [facility] Last Admin: 01/07/18 18:00 Dose: 250 mg Trazodone HCl (Desyrel) 50 mg PO HS PRN PRN Reason: Insomnia - Labs Labs: 01/08/18 07:20 01/08/18 07:20 PT 15.0 SECONDS (9.7-12.2) H 12/17/17 22:10 INR 1.3 12/17/17 22:10 APTT 27 SECONDS (21-34) 12/17/17 22:10 Attending/Attestation - Attestation I have personally seen and examined this patient.: Yes I have fully participated in the care of the patient.: Yes I have reviewed all pertinent clinical information, including history, physical exam and plan: Yes Notes (Text): seen and examined no complain. Patient has diabetic foot ulcer with osteomylitis on Zosyn (Started 12/20/17). Zosyn to finish in 6 weeks on 01/31/[address] 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
[2018-01-06] MEDS: (Novolin N) Insulin Human Isophane (NPH) 100 u/ml 10 ml vial SC SCH (21:45)
[2018-01-07] MEDS: Oxycodone/Acetaminophen 5/325 mg Tab PO PRN ×2 (00:17→10:50)
[2018-01-07] MEDS: Piperacill/Tazo 3.375gm in Dex 3.375 GM/50 ML BAG IVPB SCH ×3 (05:30→21:46)
[2018-01-07 07:48] LABS: BASO # 0.1 K/uL (0.0-0.2); BASO % 1.1 % (0.0-2.0); EOS # 0.6 K/uL (0.0-0.7); EOS % 10.1 % (0.0-4.0); HEMOGLOBIN 9.4 g/dL (12.0-18.0); MEAN CORPUSCULAR HEMOGLOBIN 33.3 pg (27.0-31.0); MEAN CORPUSCULAR HGB CONC 34.3 g/dL (33.0-37.0); MEAN PLATELET VOLUME 7.7 fL (7.2-11.7); MONO # 0.7 K/uL (0.0-0.8); NEUT # 2.5 K/uL (1.8-7.0); NEUT % 42.8 % (50.0-75.0); RBC 2.82 Mil/uL (4.40-5.90); RED CELL DISTRIBUTION WIDTH 15.4 % (11.5-14.5); WHITE BLOOD COUNT 5.9 K/uL (4.8-10.8)
[2018-01-07] MEDS: (Novolin R) Insulin Human Regular 100 units/ml vial SC SCH ×7 (07:50→21:51)
--- NOTE | 2018-01-07 07:54 | CP.PCM.PN ---
<Lacy Teague - Last Filed: 01/07/18 16:39> Subjective - Date & Time of Evaluation Date of Evaluation: 01/07/18 Time of Evaluation: 07:53 - Subjective Subjective: Progress Note for Dr. Hunt Patient seen and examined at bedside. No acute events overnight. Patient has no complaints. Patient denies fever, chills, nausea, vomiting. Patient states he is non-weight bearing on his left foot Objective - Vital Signs/Intake and Output Vital Signs (last 24 hours): Temp Pulse Resp BP Pulse Ox 97.9 F 83 20 124/66 99 01/07/18 07:35 01/07/18 07:35 01/07/18 07:35 01/07/18 07:35 01/07/18 07:35 Intake and Output: 01/07/18 01/07/18 06:59 18:59 Intake Total 350 Balance 350 - Medications Medications: Current Medications Benzonatate (Tessalon Perles) 100 mg PO TID PRN PRN Reason: FOR COUGH Last Admin: 01/03/18 13:45 Dose: 100 mg Dextrose (Dextrose 50% Inj) 0 ml IVP .STAT PRN; Protocol PRN Reason: Hypoglycemia Protocol Last Admin: 01/05/18 14:14 Dose: 50 ml Dextrose (Glutose 15) 0 gm PO .ONCE PRN; Protocol PRN Reason: Hypoglycemia Protocol Dextrose (Dextrose 50% Inj) 0 ml IV STAT PRN; Protocol PRN Reason: Hypoglycemia Protocol Dextrose (Glutose 15) 0 gm PO ONCE PRN; Protocol PRN Reason: Hypoglycemia Protocol Docusate Sodium (Colace) 100 mg PO Q12 PRN PRN Reason: Constipation Last Admin: 01/03/18 09:57 Dose: 100 mg Glucagon (Glucagen Diagnostic Kit) 0 mg IM .STAT PRN; Protocol PRN Reason: Hypoglycemia Protocol Glucagon (Glucagen Diagnostic Kit) 0 mg IM STAT PRN; Protocol PRN Reason: Hypoglycemia Protocol Piperacillin Sod/Tazobactam Sod (Zosyn 3.375 Gm Iv Premix) 3.375 gm in 50 mls @ 100 mls/hr IVPB Q8H [facility] PRN Reason: Protocol Last Admin: 01/07/18 05:30 Dose: 100 mls/hr Dextrose (Dextrose 5% In Water 1000 Ml) 1,000 mls @ 0 mls/hr IV .Q0M PRN; Protocol; Per Protocol PRN Reason: Hypoglycemia Protocol Insulin Human NPH (Novolin N) 44 unit SC HS [facility] Last Admin: 01/06/18 21:45 Dose: 44 unit Insulin Human Regular (Novolin R) 0 unit SC ACHS [facility] Last Admin: 01/07/18 07:50 Dose: Not Given Insulin Human Regular (Novolin R) 14 unit SC AC [facility] Last Admin: 01/06/18 16:30 Dose: 14 unit Oxycodone/Acetaminophen (Percocet 5/325 Mg Tab) 1 tab PO Q8H PRN PRN Reason: Pain, moderate (4-7) Stop: 01/07/18 14:20 Last Admin: 01/07/18 00:17 Dose: 1 tab Pantoprazole Sodium (Protonix Ec Tab) 40 mg PO DAILY [facility] Last Admin: 01/06/18 09:53 Dose: 40 mg Saccharomyces Boulardii (Florastor) 250 mg PO BID [facility] Last Admin: 01/06/18 17:54 Dose: 250 mg Trazodone HCl (Desyrel) 50 mg PO PRN PRN Reason: Insomnia - Labs Labs: 01/07/18 07:37 01/06/18 07:47 PT 15.0 SECONDS (9.7-12.2) H 12/17/17 22:10 INR 1.3 12/17/17 22:10 APTT 27 SECONDS (21-34) 12/17/17 22:10 - Constitutional Appears: Non-toxic, No Acute Distress - Head Exam Head Exam: ATRAUMATIC, NORMAL INSPECTION, NORMOCEPHALIC - Eye Exam Eye Exam: EOMI, Normal appearance Pupil Exam: NORMAL ACCOMODATION, PERRL - ENT Exam ENT Exam: Mucous Membranes Moist, Normal Exam - Neck Exam Neck Exam: Full ROM, Normal Inspection - Respiratory Exam Respiratory Exam: Clear to Ausculation Bilateral, NORMAL BREATHING PATTERN - Cardiovascular Exam Cardiovascular Exam: REGULAR RHYTHM, +S1, +S2. absent: Bradycardia, Tachycardia - GI/Abdominal Exam GI & Abdominal Exam: Soft, Normal Bowel Sounds. absent: Tenderness - Extremities Exam Extremities Exam: Normal Capillary Refill. absent: Pedal Edema Additional comments: left foot wrapped. no breakthrough drainage. Dressings c/d/i - Neurological Exam Neurological Exam: Alert, Awake, CN II-XII Intact - Psychiatric Exam Psychiatric exam: Normal Affect, Normal Mood - Skin Skin Exam: Dry, Pallor Assessment and Plan - Assessment and Plan (Free Text) Assessment: Assessment & Plan: Podiatry: Dr. Hernandez * continue non-weight bearing to left foot, patient will need outpatient follow up with Dr. Hernandez * s/p left foot incision, drainage and debridement of non-viable tissue on with Dr. Hernandez * S/p bedside incision and drainage 12/18/17 * S/p left foot incision and drainage for left foot soft tissue emphysema 12/18/17 * wound care and pain management as per podiatry team * Per podiatry: no further surgical management at this point. ID: Dr. Brooks, help appreciated - patient may be able to have rocephin 2g/IV daily for 6 weeks rather than zosyn q8h - suggested to have CTA and vascular eval (+) Leukocytosis, stable * Infectious Disease consult: Dr Brooks * Blood culture negative at 3 days x2 * Left foot wound culture:Proteus Mirabilis and Group G Strep Imaging: * X-ray left foot - gas emphysema noted dorsum and plantar aspect of mid-foot * Left foot X-rays s/p bedside I&D (12/18/17): Postsurgical changes with subcutaneous emphysema seen. Focal osteopenia in the 4th and 5th metatarsal heads may reflect underlying osteomyelitis. * Left foot X-rays left tib-fib (12/18/17): Subcutaneous emphysema is seen tracking along the lateral lower extremity. * Left foot X-ray (12/17/17): Extensive left forefoot subcutaneous gas and poor visualization of the 4th metatarsal head is likely related to osteomyelitis and soft tissue abscess. * MRI to assess for osteomyelitis - Findings consistent with osteomyelitis involving the distal portion and the head of the 4th metatarsal and also involving the proximal phalanx of the 4th toe. * Suspicious for septic arthritis of the 4th metatarsophalangeal joint. * Bone marrow edema and questionable small erosion noted at the head of the 3rd metatarsal bone may represent an early osteomyelitis. * Mild bone marrow edema noted at the proximal phalanx of the 3rd and 5th toe likely represent reactive changes due to hyperemia. * Diffuse soft tissue infection/inflammatory process at the lateral distal portion of the left foot associated with foci of air in the subcutaneous and deep soft tissue. The possibility of small abscess formation cannot be totally excluded in this noncontrast enhanced study. * Soft tissue edema and diffuse myositis at the mid and distal portion of the left foot. * As per podiatry note (12/20/17): Patient was informed of the MRI result with possible treatment options. Amputation of left 3rd 4th 5th rays discussed, which patient adamantly refused. * JASPER/PVR: Right JASPER non diagnostic due to arterial wall calcification, PVR waveforms show normal arterial perfusion to bilateral lower extremities at rest , normal toe brachial indexes left JASPER non diagnostic due to arterial wall calcification. PVR waveforms have normal arterial perfusion to bilateral lower extremities at rest normal toe brachial indexes. recommend CTA Medication/Management: Pain: patient was on morphine at high doses, weaned down. Continue Percocet 5/325 q6h (started on 12/26) Discontinued: Meropenem 500mg IV Q6H (Started 12/18/17), Vancomycin 1g IV Q12H ( Started 12/18/17) Zosyn (Started 12/20/17). Per Lee Blair to finish in 6 weeks on 01/31/18 Florastor 250mg PO BID PT/OT treatment and evaluation PICC line placed right arm on 12/23 (2) Uncontrolled diabetes mellitus Assessment & Plan: Endocrinology consults, Dr. Mcconnell, help appreciated Hgb A1c (12/18/17): 12.3 Hgb A1c (12/30/17): 11.1 Accuchecks ACHS Novolin R 14 u SC AC Novolin R SC ACHS NPH 44u SC HS Endo Consult: Dr. Mcconnell Hypoglycemia protocol (3) HTN (hypertension) Assessment & Plan: BP well controlled continue to monitor (4) Prophylaxis Assessment & Plan: Protonix 40mg PO QD DVT: SCD and Heparin SC Physical therapy: non-weight bearing to left foot, advance per podiatry recommendations Heart healthy, diabetic diet (edited to low carbohydrate consistent diet 01/04) Diabetic sales enablement lead referral Colace 100mg PO q12h prn for constipation Zosyn (Started 12/20/17). Per Lee Blair to finish in 6 weeks on 01/31/[address] Marilee House Eng DO PGY1 <Janeth Hunt - Last Filed: 01/09/18 22:25> Objective - Vital Signs/Intake and Output Vital Signs (last 24 hours): Temp Pulse Resp BP Pulse Ox 98.8 F 95 H 20 123/78 97 01/09/18 16:32 01/09/18 16:32 01/09/18 16:32 01/09/18 16:32 01/09/18 16:32 Intake and Output: 01/09/18 01/10/18 18:59 06:59 Intake Total 530 Balance 530 - Medications Medications: Current Medications Benzonatate (Tessalon Perles) 100 mg PO TID PRN PRN Reason: FOR COUGH Last Admin: 01/03/18 13:45 Dose: 100 mg Dextrose (Dextrose 50% Inj) 0 ml IVP .STAT PRN; Protocol PRN Reason: Hypoglycemia Protocol Last Admin: 01/05/18 14:14 Dose: 50 ml Dextrose (Glutose 15) 0 gm PO .ONCE PRN; Protocol PRN Reason: Hypoglycemia Protocol Dextrose (Dextrose 50% Inj) 0 ml IV STAT PRN; Protocol PRN Reason: Hypoglycemia Protocol Dextrose (Glutose 15) 0 gm PO ONCE PRN; Protocol PRN Reason: Hypoglycemia Protocol Docusate Sodium (Colace) 100 mg PO Q12 PRN PRN Reason: Constipation Last Admin: 01/03/18 09:57 Dose: 100 mg Glucagon (Glucagen Diagnostic Kit) 0 mg IM .STAT PRN; Protocol PRN Reason: Hypoglycemia Protocol Glucagon (Glucagen Diagnostic Kit) 0 mg IM STAT PRN; Protocol PRN Reason: Hypoglycemia Protocol Piperacillin Sod/Tazobactam Sod (Zosyn 3.375 Gm Iv Premix) 3.375 gm in 50 mls @ 100 mls/hr IVPB Q8H [facility] PRN Reason: Protocol Last Admin: 01/09/18 14:07 Dose: 100 mls/hr Insulin Human NPH (Novolin N) 44 unit SC HS [facility] Last Admin: 01/08/18 21:23 Dose: 44 unit Insulin Human Regular (Novolin R) 0 unit SC ACHS [facility] Last Admin: 01/09/18 16:30 Dose: Not Given Insulin Human Regular (Novolin R) 14 unit SC AC [facility] Last Admin: 01/09/18 16:30 Dose: 14 unit Oxycodone/Acetaminophen (Percocet 5/325 Mg Tab) 1 tab PO Q8H PRN PRN Reason: Pain, moderate (4-7) Stop: 01/11/18 08:30 Last Admin: 01/09/18 15:58 Dose: 1 tab Pantoprazole Sodium (Protonix Ec Tab) 40 mg PO DAILY [facility] Last Admin: 01/09/18 09:46 Dose: 40 mg Saccharomyces Boulardii (Florastor) 250 mg PO BID [facility] Last Admin: 01/09/18 17:05 Dose: 250 mg Trazodone HCl (Desyrel) 50 mg PO HS PRN PRN Reason: Insomnia - Labs Labs: 01/09/18 07:09 01/09/18 07:09 PT 15.0 SECONDS (9.7-12.2) H 12/17/17 22:10 INR 1.3 12/17/17 22:10 APTT 27 SECONDS (21-34) 12/17/17 22:10 Attending/Attestation - Attestation I have personally seen and examined this patient.: Yes I have fully participated in the care of the patient.: Yes I have reviewed all pertinent clinical information, including history, physical exam and plan: Yes Notes (Text): Seen and examined,no complain Patient has diabetic foot ulcer with osteomylitis on Zosyn (Started 12/20/17). Zosyn to finish in 6 weeks on 01/31/[address] 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 d/w resident I agree with the documentation of the assessment and the plan of the resident
[2018-01-07 08:09] LABS: BLOOD UREA NITROGEN 19 mg/dL (9-20); CALCIUM 9.4 mg/dl (8.6-10.4); GFR AFRICAN-AMERICAN > 60; GFR NON-AFRICAN AMERICAN > 60
[2018-01-07] MEDS: Saccharomyces Boulardi 250 mg Cap PO SCH ×2 (10:50→18:00)
[2018-01-07] MEDS: Pantoprazole 40 mg EC Tab PO SCH (10:51)
--- NOTE | 2018-01-07 12:27 | CP.PCM.PN ---
Subjective - Date & Time of Evaluation Date of Evaluation: 01/07/18 Time of Evaluation: 12:23 - Subjective Subjective: Podiatry Progress Note - Dr. David KnightM seen and evaluated at bedside 20 days s/p left foot I&D (DOS 12/18/17) and 11 days s/p follow up left foot I&D (DOS 12/27/17). Patient is seen resting comfortably in bed, in NAD, and AA0x3. Patient reports that the pain has improved. Reports that he feels the swelling has gone down. No acute events overnight. Offers no other pedal complaints. Denies N/V/F/D/C/SOB/WINTER/dizziness. Objective - Vital Signs/Intake and Output Vital Signs (last 24 hours): Temp Pulse Resp BP Pulse Ox 97.9 F 83 20 124/66 99 01/07/18 07:35 01/07/18 07:35 01/07/18 07:35 01/07/18 07:35 01/07/18 07:35 Intake and Output: 01/07/18 01/07/18 06:59 18:59 Intake Total 350 Balance 350 - Medications Medications: Current Medications Benzonatate (Tessalon Perles) 100 mg PO TID PRN PRN Reason: FOR COUGH Last Admin: 01/03/18 13:45 Dose: 100 mg Dextrose (Dextrose 50% Inj) 0 ml IVP .STAT PRN; Protocol PRN Reason: Hypoglycemia Protocol Last Admin: 01/05/18 14:14 Dose: 50 ml Dextrose (Glutose 15) 0 gm PO .ONCE PRN; Protocol PRN Reason: Hypoglycemia Protocol Dextrose (Dextrose 50% Inj) 0 ml IV STAT PRN; Protocol PRN Reason: Hypoglycemia Protocol Dextrose (Glutose 15) 0 gm PO ONCE PRN; Protocol PRN Reason: Hypoglycemia Protocol Docusate Sodium (Colace) 100 mg PO Q12 PRN PRN Reason: Constipation Last Admin: 01/03/18 09:57 Dose: 100 mg Glucagon (Glucagen Diagnostic Kit) 0 mg IM .STAT PRN; Protocol PRN Reason: Hypoglycemia Protocol Glucagon (Glucagen Diagnostic Kit) 0 mg IM STAT PRN; Protocol PRN Reason: Hypoglycemia Protocol Piperacillin Sod/Tazobactam Sod (Zosyn 3.375 Gm Iv Premix) 3.375 gm in 50 mls @ 100 mls/hr IVPB Q8H [facility] PRN Reason: Protocol Last Admin: 01/07/18 05:30 Dose: 100 mls/hr Dextrose (Dextrose 5% In Water 1000 Ml) 1,000 mls @ 0 mls/hr IV .Q0M PRN; Protocol; Per Protocol PRN Reason: Hypoglycemia Protocol Insulin Human NPH (Novolin N) 44 unit SC HS [facility] Last Admin: 01/06/18 21:45 Dose: 44 unit Insulin Human Regular (Novolin R) 0 unit SC ACHS [facility] Last Admin: 01/07/18 07:50 Dose: Not Given Insulin Human Regular (Novolin R) 14 unit SC AC [facility] Last Admin: 01/07/18 08:19 Dose: 14 unit Oxycodone/Acetaminophen (Percocet 5/325 Mg Tab) 1 tab PO Q8H PRN PRN Reason: Pain, moderate (4-7) Stop: 01/07/18 14:20 Last Admin: 01/07/18 10:50 Dose: 1 tab Pantoprazole Sodium (Protonix Ec Tab) 40 mg PO DAILY [facility] Last Admin: 01/07/18 10:51 Dose: 40 mg Saccharomyces Boulardii (Florastor) 250 mg PO BID [facility] Last Admin: 01/07/18 10:50 Dose: 250 mg Trazodone HCl (Desyrel) 50 mg PO HS PRN PRN Reason: Insomnia - Labs Labs: 01/07/18 07:37 01/07/18 07:37 PT 15.0 SECONDS (9.7-12.2) H 12/17/17 22:10 INR 1.3 12/17/17 22:10 APTT 27 SECONDS (21-34) 12/17/17 22:10 - Constitutional Appears: Well, Non-toxic, No Acute Distress - Extremities Exam Additional comments: Left lower extremity exam Dressing to left foot remains intact with a moderate amount of strikethrough present overlying wound at bases of 4th and 5th digit. DERM: Dorsal, medial and plantar incisions measuring roughly 5 cm in length appreciated as well as roughly 7 cm lateral ankle incision. All skin edges well coapted and all sutures intact. 4 CC of purulent drainage noted from dorsal lateral ulceration today. Dorsolateral ulceration measuring 1cm x 1.5cm x 0.5cm slightly macerated and protruding soft tissue; no probe to bone, absent malodor. Mild periwound erythema noted to dorsal incision and dorsolateral ulceration.mild maceration noted to proximal aspect of plantar incision noted. VASC: Non-palpable DP/PT noted secondary to edema. Nonpitting edema remains to entire left foot. 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 No pain on palpation to dorsolateral ulceration. - Neurological Exam Neurological Exam: Alert, Awake - Psychiatric Exam Psychiatric exam: Normal Affect, Normal Mood Assessment and Plan - Assessment and Plan (Free Text) Assessment: 52M 20 days s/p left foot I&D (DOS 12/18/17) and 11 days s/p follow up left foot I &D (DOS 12/27/17). Plan: Patient seen and evaluated at bedside Discussed with attending, Dr. Hernandez Afebrile, WBC 5.9, glucose 129 Ankle and tib/fib xrays both negative for soft tissue emphysema Continue local wound care - betadine soaked 4x4s, ABD, kerlix -Approximately 4cc purulence able to be expressed from wound proximal to 4th and 5th digits -Reinforce tight glucose control for wound healing Patient is to remain strictly NWB LLE with the assistance of walker No further surgical intervention planned at this time Continue abx - Zosyn 3.375g IV Stable from podiatry standpoint Patient is to follow up with Dr. Hernandez in the podiatry clinic (Saturday afternoons 12-3) for continued wound care Podiatry will continue to follow patient while in house
[2018-01-07] MEDS: (Novolin N) Insulin Human Isophane (NPH) 100 u/ml 10 ml vial SC SCH (21:52)
[2018-01-08] MEDS ORDERED: Oxycodone/Acetaminophen 5/325 mg Tab PO ONE (02:56)
[2018-01-08 07:43] LABS: BLOOD UREA NITROGEN 15 mg/dL (9-20); CALCIUM 9.1 mg/dl (8.6-10.4); GFR AFRICAN-AMERICAN > 60; GFR NON-AFRICAN AMERICAN > 60
[2018-01-08] MEDS: (Novolin R) Insulin Human Regular 100 units/ml vial SC SCH ×7 (07:51→21:21)
[2018-01-08 07:54] LABS: BASO # 0.1 K/uL (0.0-0.2); BASO % 0.5 % (0.0-2.0); EOS # 0.4 K/uL (0.0-0.7); EOS % 3.6 % (0.0-4.0); HEMOGLOBIN 9.7 g/dL (12.0-18.0); LYMPH # 1.4 K/uL (1.0-4.3); LYMPH % 11.4 % (20.0-40.0); MEAN CELL VOLUME 96.9 fL (80.0-94.0); MEAN CORPUSCULAR HEMOGLOBIN 33.2 pg (27.0-31.0); MEAN CORPUSCULAR HGB CONC 34.2 g/dL (33.0-37.0); MEAN PLATELET VOLUME 7.7 fL (7.2-11.7); MONO # 0.9 K/uL (0.0-0.8); MONO % 7.3 % (0.0-10.0); NEUT # 9.2 K/uL (1.8-7.0); NEUT % 77.2 % (50.0-75.0); RBC 2.92 Mil/uL (4.40-5.90); RED CELL DISTRIBUTION WIDTH 15.3 % (11.5-14.5)
--- NOTE | 2018-01-08 09:15 | CP.PCM.PN ---
<Lacy Teague - Last Filed: 01/08/18 09:12> Subjective - Date & Time of Evaluation Date of Evaluation: 01/08/18 Time of Evaluation: 09:12 - Subjective Subjective: Progress Note Patient seen and examined at bedside. Patient is in cheerful disposition. Patient states he has been non-weightbearing, denies fever, chills. Objective - Vital Signs/Intake and Output Vital Signs (last 24 hours): Temp Pulse Resp BP Pulse Ox 98.5 F 95 H 20 122/82 99 01/08/18 07:47 01/08/18 07:47 01/08/18 07:47 01/08/18 07:47 01/08/18 07:47 Intake and Output: 01/08/18 01/08/18 06:59 18:59 Intake Total 700 Output Total 700 Balance 0 - Medications Medications: Current Medications Benzonatate (Tessalon Perles) 100 mg PO TID PRN PRN Reason: FOR COUGH Last Admin: 01/03/18 13:45 Dose: 100 mg Dextrose (Dextrose 50% Inj) 0 ml IVP .STAT PRN; Protocol PRN Reason: Hypoglycemia Protocol Last Admin: 01/05/18 14:14 Dose: 50 ml Dextrose (Glutose 15) 0 gm PO .ONCE PRN; Protocol PRN Reason: Hypoglycemia Protocol Dextrose (Dextrose 50% Inj) 0 ml IV STAT PRN; Protocol PRN Reason: Hypoglycemia Protocol Dextrose (Glutose 15) 0 gm PO ONCE PRN; Protocol PRN Reason: Hypoglycemia Protocol Docusate Sodium (Colace) 100 mg PO Q12 PRN PRN Reason: Constipation Last Admin: 01/03/18 09:57 Dose: 100 mg Glucagon (Glucagen Diagnostic Kit) 0 mg IM .STAT PRN; Protocol PRN Reason: Hypoglycemia Protocol Glucagon (Glucagen Diagnostic Kit) 0 mg IM STAT PRN; Protocol PRN Reason: Hypoglycemia Protocol Dextrose (Dextrose 5% In Water 1000 Ml) 1,000 mls @ 0 mls/hr IV .Q0M PRN; Protocol; Per Protocol PRN Reason: Hypoglycemia Protocol Piperacillin Sod/Tazobactam Sod (Zosyn 3.375 Gm Iv Premix) 3.375 gm in 50 mls @ 100 mls/hr IVPB Q8H [facility] PRN Reason: Protocol Insulin Human NPH (Novolin N) 44 unit SC HS [facility] Last Admin: 01/07/18 21:52 Dose: 44 unit Insulin Human Regular (Novolin R) 0 unit SC ACHS [facility] Last Admin: 01/08/18 07:51 Dose: Not Given Insulin Human Regular (Novolin R) 14 unit SC AC [facility] Last Admin: 01/08/18 08:30 Dose: 14 unit Oxycodone/Acetaminophen (Percocet 5/325 Mg Tab) 1 tab PO Q8H PRN PRN Reason: Pain, moderate (4-7) Stop: 01/11/18 08:30 Pantoprazole Sodium (Protonix Ec Tab) 40 mg PO DAILY [facility] Last Admin: 01/07/18 10:51 Dose: 40 mg Saccharomyces Boulardii (Florastor) 250 mg PO BID [facility] Last Admin: 01/07/18 18:00 Dose: 250 mg Trazodone HCl (Desyrel) 50 mg PO HS PRN PRN Reason: Insomnia - Labs Labs: 01/08/18 07:20 01/08/18 07:20 PT 15.0 SECONDS (9.7-12.2) H 12/17/17 22:10 INR 1.3 12/17/17 22:10 APTT 27 SECONDS (21-34) 12/17/17 22:10 - Constitutional Appears: Non-toxic - Head Exam Head Exam: ATRAUMATIC, NORMAL INSPECTION, NORMOCEPHALIC - Eye Exam Eye Exam: EOMI, Normal appearance Pupil Exam: NORMAL ACCOMODATION, PERRL - ENT Exam ENT Exam: Mucous Membranes Moist, Normal Exam - Neck Exam Neck Exam: Full ROM. absent: Lymphadenopathy, Thyromegaly - Respiratory Exam Respiratory Exam: Clear to Ausculation Bilateral, NORMAL BREATHING PATTERN. absent: Decreased Breath Sounds - Cardiovascular Exam Cardiovascular Exam: REGULAR RHYTHM, +S1, +S2. absent: Bradycardia, Tachycardia - GI/Abdominal Exam GI & Abdominal Exam: Soft, Normal Bowel Sounds. absent: Tenderness - Extremities Exam Extremities Exam: Full ROM, Normal Capillary Refill Additional comments: left foot dressings c/d/i, patient denies pain in left foot. - Back Exam Back Exam: Full ROM. absent: paraspinal tenderness - Neurological Exam Neurological Exam: Awake, CN II-XII Intact Neuro motor strength exam: Left Upper Extremity: 5, Right Upper Extremity: 5, Left Lower Extremity: 5, Right Lower Extremity: 5 - Psychiatric Exam Psychiatric exam: Normal Affect, Normal Mood - Skin Skin Exam: Dry, Intact, Normal Color, Warm Assessment and Plan - Assessment and Plan (Free Text) Assessment: Assessment & Plan: Podiatry: Dr. Hernandez * continue non-weight bearing to left foot, patient will need outpatient follow up with Dr. Hernandez * s/p left foot incision, drainage and debridement of non-viable tissue on with Dr. Hernandez * S/p bedside incision and drainage 12/18/17 * S/p left foot incision and drainage for left foot soft tissue emphysema 12/18/17 * wound care and pain management as per podiatry team * Per podiatry: no further surgical management at this point. ID: Dr. Brooks, help appreciated - patient may be able to have rocephin 2g/IV daily for 6 weeks rather than zosyn q8h - suggested to have CTA and vascular eval (+) Leukocytosis * Infectious Disease consult: Dr Brooks * Blood culture negative at 3 days x2 * Left foot wound culture:Proteus Mirabilis and Group G Strep * resolved and stable until 01/08 * 01/08: leukocytosis, afebrile Imaging: * X-ray left foot - gas emphysema noted dorsum and plantar aspect of mid-foot * Left foot X-rays s/p bedside I&D (12/18/17): Postsurgical changes with subcutaneous emphysema seen. Focal osteopenia in the 4th and 5th metatarsal heads may reflect underlying osteomyelitis. * Left foot X-rays left tib-fib (12/18/17): Subcutaneous emphysema is seen tracking along the lateral lower extremity. * Left foot X-ray (12/17/17): Extensive left forefoot subcutaneous gas and poor visualization of the 4th metatarsal head is likely related to osteomyelitis and soft tissue abscess. * MRI to assess for osteomyelitis - Findings consistent with osteomyelitis involving the distal portion and the head of the 4th metatarsal and also involving the proximal phalanx of the 4th toe. * Suspicious for septic arthritis of the 4th metatarsophalangeal joint. * Bone marrow edema and questionable small erosion noted at the head of the 3rd metatarsal bone may represent an early osteomyelitis. * Mild bone marrow edema noted at the proximal phalanx of the 3rd and 5th toe likely represent reactive changes due to hyperemia. * Diffuse soft tissue infection/inflammatory process at the lateral distal portion of the left foot associated with foci of air in the subcutaneous and deep soft tissue. The possibility of small abscess formation cannot be totally excluded in this noncontrast enhanced study. * Soft tissue edema and diffuse myositis at the mid and distal portion of the left foot. * As per podiatry note (12/20/17): Patient was informed of the MRI result with possible treatment options. Amputation of left 3rd 4th 5th rays discussed, which patient adamantly refused. * JASPER/PVR: Right JASPER non diagnostic due to arterial wall calcification, PVR waveforms show normal arterial perfusion to bilateral lower extremities at rest , normal toe brachial indexes left JASPER non diagnostic due to arterial wall calcification. PVR waveforms have normal arterial perfusion to bilateral lower extremities at rest normal toe brachial indexes. recommend CTA Medication/Management: Pain: patient was on morphine at high doses, weaned down. Continue Percocet 5/325 q6h (started on 12/26) Discontinued: Meropenem 500mg IV Q6H (Started 12/18/17), Vancomycin 1g IV Q12H ( Started 12/18/17) Zosyn (Started 12/20/17). Per Lee Blair to finish in 6 weeks on 01/31/18 Florastor 250mg PO BID PT/OT treatment and evaluation PICC line placed right arm on 12/23 (2) Uncontrolled diabetes mellitus Assessment & Plan: Endocrinology consults, Dr. Mcconnell, help appreciated Hgb A1c (12/18/17): 12.3 Hgb A1c (12/30/17): 11.1 Accuchecks ACHS Novolin R 14 u SC AC Novolin R SC ACHS NPH 44u SC HS Endo Consult: Dr. 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 Per Lee Blair to finish in 6 weeks on 01/31/[address] Marilee House Eng DO PGY1 <Janeth Hunt - Last Filed: 01/09/18 22:27> Objective - Vital Signs/Intake and Output Vital Signs (last 24 hours): Temp Pulse Resp BP Pulse Ox 98.8 F 95 H 20 123/78 97 01/09/18 16:32 01/09/18 16:32 01/09/18 16:32 01/09/18 16:32 01/09/18 16:32 Intake and Output: 01/09/18 01/10/18 18:59 06:59 Intake Total 530 500 Balance 530 500 - Medications Medications: Current Medications Benzonatate (Tessalon Perles) 100 mg PO TID PRN PRN Reason: FOR COUGH Last Admin: 01/03/18 13:45 Dose: 100 mg Dextrose (Dextrose 50% Inj) 0 ml IVP .STAT PRN; Protocol PRN Reason: Hypoglycemia Protocol Last Admin: 01/05/18 14:14 Dose: 50 ml Dextrose (Glutose 15) 0 gm PO .ONCE PRN; Protocol PRN Reason: Hypoglycemia Protocol Dextrose (Dextrose 50% Inj) 0 ml IV STAT PRN; Protocol PRN Reason: Hypoglycemia Protocol Dextrose (Glutose 15) 0 gm PO ONCE PRN; Protocol PRN Reason: Hypoglycemia Protocol Docusate Sodium (Colace) 100 mg PO Q12 PRN PRN Reason: Constipation Last Admin: 01/03/18 09:57 Dose: 100 mg Glucagon (Glucagen Diagnostic Kit) 0 mg IM .STAT PRN; Protocol PRN Reason: Hypoglycemia Protocol Glucagon (Glucagen Diagnostic Kit) 0 mg IM STAT PRN; Protocol PRN Reason: Hypoglycemia Protocol Piperacillin Sod/Tazobactam Sod (Zosyn 3.375 Gm Iv Premix) 3.375 gm in 50 mls @ 100 mls/hr IVPB Q8H [facility] PRN Reason: Protocol Last Admin: 01/09/18 21:54 Dose: 100 mls/hr Insulin Human NPH (Novolin N) 44 unit SC HS [facility] Last Admin: 01/09/18 21:55 Dose: 44 unit Insulin Human Regular (Novolin R) 0 unit SC ACHS [facility] Last Admin: 01/09/18 21:55 Dose: Not Given Insulin Human Regular (Novolin R) 14 unit SC AC [facility] Last Admin: 01/09/18 16:30 Dose: 14 unit Oxycodone/Acetaminophen (Percocet 5/325 Mg Tab) 1 tab PO Q8H PRN PRN Reason: Pain, moderate (4-7) Stop: 01/11/18 08:30 Last Admin: 01/09/18 15:58 Dose: 1 tab Pantoprazole Sodium (Protonix Ec Tab) 40 mg PO DAILY [facility] Last Admin: 01/09/18 09:46 Dose: 40 mg Saccharomyces Boulardii (Florastor) 250 mg PO BID [facility] Last Admin: 01/09/18 17:05 Dose: 250 mg Trazodone HCl (Desyrel) 50 mg PO HS PRN PRN Reason: Insomnia - Labs Labs: 01/09/18 07:09 01/09/18 07:09 PT 15.0 SECONDS (9.7-12.2) H 12/17/17 22:10 INR 1.3 12/17/17 22:10 APTT 27 SECONDS (21-34) 12/17/17 22:10 Attending/Attestation - Attestation I have personally seen and examined this patient.: Yes I have fully participated in the care of the patient.: Yes I have reviewed all pertinent clinical information, including history, physical exam and plan: Yes Notes (Text): seen and examined,patient was noncompliance with his treatment/diabetic care in the past refuses amputation,s/p picc line d/w concrete plant 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 Zosyn to finish in 6 weeks on 01/31/[address] Brooks, continue sugar control,wound care by concrete plant laborer d/w The resident . we will follow with DR Brooks about discharge plan I agree with the documentation of the assessment and the plan of the resident
[2018-01-08] MEDS: Saccharomyces Boulardi 250 mg Cap PO SCH ×2 (09:44→18:04)
[2018-01-08] MEDS: Pantoprazole 40 mg EC Tab PO SCH (09:44)
[2018-01-08] MEDS ORDERED: Piperacill/Tazo 3.375gm in Dex 3.375 GM/50 ML BAG IVPB SCH (10:00)
--- NOTE | 2018-01-08 10:34 | CP.PCM.PN ---
Subjective - Date & Time of Evaluation Date of Evaluation: 01/08/18 Time of Evaluation: 10:34 - Subjective Subjective: Podiatry Progress Note - Dr. David KnightM seen and evaluated at bedside 21 days s/p left foot I&D (DOS 12/18/17) and 12 days s/p follow up left foot I&D (DOS 12/27/17). Patient is seen resting comfortably in bed, in NAD, and AA0x3. Patient reports that the pain has improved. No acute events overnight. Offers no other pedal complaints. Denies N /V/F/D/C/SOB/WINTER/dizziness. Objective - Vital Signs/Intake and Output Vital Signs (last 24 hours): Temp Pulse Resp BP Pulse Ox 98.5 F 95 H 20 122/82 99 01/08/18 07:47 01/08/18 07:47 01/08/18 07:47 01/08/18 07:47 01/08/18 07:47 Intake and Output: 01/08/18 01/08/18 06:59 18:59 Intake Total 700 Output Total 700 Balance 0 - Medications Medications: Current Medications Benzonatate (Tessalon Perles) 100 mg PO TID PRN PRN Reason: FOR COUGH Last Admin: 01/03/18 13:45 Dose: 100 mg Dextrose (Dextrose 50% Inj) 0 ml IVP .STAT PRN; Protocol PRN Reason: Hypoglycemia Protocol Last Admin: 01/05/18 14:14 Dose: 50 ml Dextrose (Glutose 15) 0 gm PO .ONCE PRN; Protocol PRN Reason: Hypoglycemia Protocol Dextrose (Dextrose 50% Inj) 0 ml IV STAT PRN; Protocol PRN Reason: Hypoglycemia Protocol Dextrose (Glutose 15) 0 gm PO ONCE PRN; Protocol PRN Reason: Hypoglycemia Protocol Docusate Sodium (Colace) 100 mg PO Q12 PRN PRN Reason: Constipation Last Admin: 01/03/18 09:57 Dose: 100 mg Glucagon (Glucagen Diagnostic Kit) 0 mg IM .STAT PRN; Protocol PRN Reason: Hypoglycemia Protocol Glucagon (Glucagen Diagnostic Kit) 0 mg IM STAT PRN; Protocol PRN Reason: Hypoglycemia Protocol Dextrose (Dextrose 5% In Water 1000 Ml) 1,000 mls @ 0 mls/hr IV .Q0M PRN; Protocol; Per Protocol PRN Reason: Hypoglycemia Protocol Piperacillin Sod/Tazobactam Sod (Zosyn 3.375 Gm Iv Premix) 3.375 gm in 50 mls @ 100 mls/hr IVPB Q8H [facility] PRN Reason: Protocol Insulin Human NPH (Novolin N) 44 unit SC HS [facility] Last Admin: 01/07/18 21:52 Dose: 44 unit Insulin Human Regular (Novolin R) 0 unit SC ACHS [facility] Last Admin: 01/08/18 07:51 Dose: Not Given Insulin Human Regular (Novolin R) 14 unit SC AC [facility] Last Admin: 01/08/18 08:30 Dose: 14 unit Oxycodone/Acetaminophen (Percocet 5/325 Mg Tab) 1 tab PO Q8H PRN PRN Reason: Pain, moderate (4-7) Stop: 01/11/18 08:30 Pantoprazole Sodium (Protonix Ec Tab) 40 mg PO DAILY [facility] Last Admin: 01/08/18 09:44 Dose: 40 mg Saccharomyces Boulardii (Florastor) 250 mg PO BID [facility] Last Admin: 01/08/18 09:44 Dose: 250 mg Trazodone HCl (Desyrel) 50 mg PO PRN PRN Reason: Insomnia - Labs Labs: 01/08/18 07:20 01/08/18 07:20 PT 15.0 SECONDS (9.7-12.2) H 12/17/17 22:10 INR 1.3 12/17/17 22:10 APTT 27 SECONDS (21-34) 12/17/17 22:10 - Constitutional Appears: Well, Non-toxic, No Acute Distress - Extremities Exam Additional comments: Left lower extremity exam Dressing to left foot remains intact with a moderate amount of strikethrough present overlying wound at bases of 4th and 5th digit. DERM: Dorsal, medial and plantar incisions measuring roughly 5 cm in length appreciated as well as roughly 7 cm lateral ankle incision. All skin edges well coapted and all sutures intact. 4 CC of purulent drainage noted from dorsal lateral ulceration today. Dorsolateral ulceration measuring 1cm x 1.5cm x 0.5cm slightly macerated and protruding soft tissue; no probe to bone, absent malodor. Mild periwound erythema noted to dorsal incision and dorsolateral ulceration.mild maceration noted to proximal aspect of plantar incision noted. VASC: Non-palpable DP/PT noted secondary to edema. Nonpitting edema remains to entire left foot. 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 No pain on palpation to dorsolateral ulceration. - Neurological Exam Neurological Exam: Alert, Awake, Oriented x3 Assessment and Plan - Assessment and Plan (Free Text) Assessment: 52M 21 days s/p left foot I&D (DOS 12/18/17) and 12 days s/p follow up left foot I &D (DOS 12/27/17). Plan: Patient seen and evaluated at bedside Discussed with attending, Dr. Hernandez Afebrile, WBC 12.0 Ankle and tib/fib xrays both negative for soft tissue emphysema Continue local wound care - betadine soaked 4x4s, ABD, kerlix -Approximately 4cc purulence able to be expressed from wound proximal to 4th and 5th digits -Reinforce tight glucose control for wound healing Patient is to remain strictly NWB LLE with the assistance of walker No further surgical intervention planned at this time Continue abx - Zosyn 3.375g IV Stable from podiatry standpoint Patient is to follow up with Dr. Hernandez in the podiatry clinic (Saturday afternoons 12-3) for continued wound care Podiatry will continue to follow patient while in house
[2018-01-08] MEDS: Piperacill/Tazo 3.375gm in Dex 3.375 GM/50 ML BAG IVPB SCH ×2 (13:44→21:24)
[2018-01-08] MEDS: Oxycodone/Acetaminophen 5/325 mg Tab PO PRN (14:22)
[2018-01-08] MEDS: (Novolin N) Insulin Human Isophane (NPH) 100 u/ml 10 ml vial SC SCH (21:23)
[2018-01-09] MEDS: Piperacill/Tazo 3.375gm in Dex 3.375 GM/50 ML BAG IVPB SCH ×3 (05:15→21:54)
[2018-01-09] MEDS: Oxycodone/Acetaminophen 5/325 mg Tab PO PRN ×2 (05:35→15:58)
[2018-01-09 07:37] LABS: BLOOD UREA NITROGEN 13 mg/dL (9-20); CALCIUM 9.5 mg/dl (8.6-10.4); GFR AFRICAN-AMERICAN > 60; GFR NON-AFRICAN AMERICAN > 60
[2018-01-09 07:40] LABS: BASO # 0.1 K/uL (0.0-0.2); BASO % 1.1 % (0.0-2.0); EOS # 0.6 K/uL (0.0-0.7); EOS % 8.5 % (0.0-4.0); HEMOGLOBIN 9.5 g/dL (12.0-18.0); LYMPH % 29.8 % (20.0-40.0); MEAN CELL VOLUME 96.7 fL (80.0-94.0); MEAN CORPUSCULAR HEMOGLOBIN 32.7 pg (27.0-31.0); MEAN CORPUSCULAR HGB CONC 33.8 g/dL (33.0-37.0); MEAN PLATELET VOLUME 7.4 fL (7.2-11.7); MONO # 0.6 K/uL (0.0-0.8); MONO % 9.7 % (0.0-10.0); NEUT # 3.4 K/uL (1.8-7.0); NEUT % 50.9 % (50.0-75.0); NRBC % 0.1 % (0.0-2.0); RBC 2.9 Mil/uL (4.40-5.90); RED CELL DISTRIBUTION WIDTH 15.3 % (11.5-14.5); WHITE BLOOD COUNT 6.6 K/uL (4.8-10.8)
[2018-01-09] MEDS: (Novolin R) Insulin Human Regular 100 units/ml vial SC SCH ×7 (07:42→21:55)
[2018-01-09] MEDS: Saccharomyces Boulardi 250 mg Cap PO SCH ×2 (09:46→17:05)
[2018-01-09] MEDS: Pantoprazole 40 mg EC Tab PO SCH (09:46)
--- NOTE | 2018-01-09 11:32 | CP.PCM.PN ---
Subjective - Date & Time of Evaluation Date of Evaluation: 01/09/18 Time of Evaluation: 11:22 - Subjective Subjective: Podiatry Progress Note - Dr. David KnightM seen and evaluated at bedside 22 days s/p left foot I&D (DOS 12/18/17) and 13 days s/p follow up left foot I&D (DOS 12/27/17). Patient is seen resting comfortably in bed, in NAD, and AA0x3. Patient reports that the pain has improved. No acute events overnight. Offers no other pedal complaints. Denies N /V/F/D/C/SOB/WINTER/dizziness. Objective - Vital Signs/Intake and Output Vital Signs (last 24 hours): Temp Pulse Resp BP Pulse Ox 98.4 F 96 H 20 110/74 96 01/09/18 07:47 01/09/18 07:47 01/09/18 07:47 01/09/18 07:47 01/09/18 07:47 Intake and Output: 01/09/18 01/09/18 06:59 18:59 Intake Total 800 Output Total 800 Balance 0 - Medications Medications: Current Medications Benzonatate (Tessalon Perles) 100 mg PO TID PRN PRN Reason: FOR COUGH Last Admin: 01/03/18 13:45 Dose: 100 mg Dextrose (Dextrose 50% Inj) 0 ml IVP .STAT PRN; Protocol PRN Reason: Hypoglycemia Protocol Last Admin: 01/05/18 14:14 Dose: 50 ml Dextrose (Glutose 15) 0 gm PO .ONCE PRN; Protocol PRN Reason: Hypoglycemia Protocol Dextrose (Dextrose 50% Inj) 0 ml IV STAT PRN; Protocol PRN Reason: Hypoglycemia Protocol Dextrose (Glutose 15) 0 gm PO ONCE PRN; Protocol PRN Reason: Hypoglycemia Protocol Docusate Sodium (Colace) 100 mg PO Q12 PRN PRN Reason: Constipation Last Admin: 01/03/18 09:57 Dose: 100 mg Glucagon (Glucagen Diagnostic Kit) 0 mg IM .STAT PRN; Protocol PRN Reason: Hypoglycemia Protocol Glucagon (Glucagen Diagnostic Kit) 0 mg IM STAT PRN; Protocol PRN Reason: Hypoglycemia Protocol Piperacillin Sod/Tazobactam Sod (Zosyn 3.375 Gm Iv Premix) 3.375 gm in 50 mls @ 100 mls/hr IVPB Q8H [facility] PRN Reason: Protocol Last Admin: 01/09/18 05:15 Dose: 100 mls/hr Insulin Human NPH (Novolin N) 44 unit SC HS [facility] Last Admin: 01/08/18 21:23 Dose: 44 unit Insulin Human Regular (Novolin R) 0 unit SC ACHS [facility] Last Admin: 01/09/18 07:42 Dose: Not Given Insulin Human Regular (Novolin R) 14 unit SC AC [facility] Last Admin: 01/09/18 08:30 Dose: 14 unit Oxycodone/Acetaminophen (Percocet 5/325 Mg Tab) 1 tab PO Q8H PRN PRN Reason: Pain, moderate (4-7) Stop: 01/11/18 08:30 Last Admin: 01/09/18 05:35 Dose: 1 tab Pantoprazole Sodium (Protonix Ec Tab) 40 mg PO DAILY [facility] Last Admin: 01/09/18 09:46 Dose: 40 mg Saccharomyces Boulardii (Florastor) 250 mg PO BID [facility] Last Admin: 01/09/18 09:46 Dose: 250 mg Trazodone HCl (Desyrel) 50 mg PO PRN PRN Reason: Insomnia - Labs Labs: 01/09/18 07:09 01/09/18 07:09 PT 15.0 SECONDS (9.7-12.2) H 12/17/17 22:10 INR 1.3 12/17/17 22:10 APTT 27 SECONDS (21-34) 12/17/17 22:10 - Constitutional Appears: Well, Non-toxic, No Acute Distress - Extremities Exam Additional comments: Left lower extremity exam Dressing to left foot remains intact with a moderate amount of strikethrough present overlying wound at bases of 4th and 5th digit. DERM: Dorsal, medial and plantar incisions measuring roughly 5 cm in length appreciated as well as roughly 7 cm lateral ankle incision. All skin edges well coapted and all sutures intact. 1 CC of purulent drainage noted from dorsal lateral ulceration today. Dorsolateral ulceration measuring 1cm x 1.5cm x 0.5cm slightly macerated and protruding soft tissue; no probe to bone, absent malodor. Mild periwound erythema noted to dorsal incision and dorsolateral ulceration.mild maceration noted to proximal aspect of plantar incision noted. VASC: Non-palpable DP/PT noted secondary to edema. Nonpitting edema remains to entire left foot. 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 No pain on palpation to dorsolateral ulceration. - Neurological Exam Neurological Exam: Alert, Awake, Oriented x3 - Psychiatric Exam Psychiatric exam: Normal Affect, Normal Mood Assessment and Plan - Assessment and Plan (Free Text) Assessment: 52M 22 days s/p left foot I&D (DOS 12/18/17) and 13 days s/p follow up left foot I &D (DOS 12/27/17). Plan: Patient seen and evaluated at bedside Discussed with attending, Dr. Hernandez Afebrile Ankle and tib/fib xrays both negative for soft tissue emphysema Continue local wound care - betadine soaked 4x4s, ABD, kerlix -Approximately 4cc purulence able to be expressed from wound proximal to 4th and 5th digits -Reinforce tight glucose control for wound healing Patient is to remain strictly NWB LLE with the assistance of walker No further surgical intervention planned at this time Continue abx - Zosyn 3.375g IV Stable from podiatry standpoint Patient is to follow up with Dr. Hernandez in the podiatry clinic (Saturday afternoons 12-3) for continued wound care Podiatry will continue to follow patient while in house
[2018-01-09] MEDS: (Novolin N) Insulin Human Isophane (NPH) 100 u/ml 10 ml vial SC SCH (21:55)
[2018-01-10] MEDS: Piperacill/Tazo 3.375gm in Dex 3.375 GM/50 ML BAG IVPB SCH ×3 (05:22→21:24)
[2018-01-10] MEDS: Oxycodone/Acetaminophen 5/325 mg Tab PO PRN ×2 (05:23→14:08)
--- NOTE | 2018-01-10 07:19 | CP.PCM.PN ---
Subjective - Date & Time of Evaluation Date of Evaluation: 01/10/18 Time of Evaluation: 07:19 - Subjective Subjective: Progress Note Patient seen and examined with at bedside. No acute events overnight. Patient states he has been non-weightbearing, denies fever, chills. Patient states he's tolerating pain well. Patient denies leg edema, chest pain, shortness of breath. Objective - Vital Signs/Intake and Output Vital Signs (last 24 hours): Temp Pulse Resp BP Pulse Ox 98 F 91 H 20 103/64 99 01/09/18 23:18 01/09/18 23:18 01/09/18 23:18 01/09/18 23:18 01/09/18 23:18 Intake and Output: 01/10/18 01/10/18 06:59 18:59 Intake Total 500 Balance 500 - Medications Medications: Current Medications Benzonatate (Tessalon Perles) 100 mg PO TID PRN PRN Reason: FOR COUGH Last Admin: 01/03/18 13:45 Dose: 100 mg Dextrose (Dextrose 50% Inj) 0 ml IVP .STAT PRN; Protocol PRN Reason: Hypoglycemia Protocol Last Admin: 01/05/18 14:14 Dose: 50 ml Dextrose (Glutose 15) 0 gm PO .ONCE PRN; Protocol PRN Reason: Hypoglycemia Protocol Dextrose (Dextrose 50% Inj) 0 ml IV STAT PRN; Protocol PRN Reason: Hypoglycemia Protocol Dextrose (Glutose 15) 0 gm PO ONCE PRN; Protocol PRN Reason: Hypoglycemia Protocol Docusate Sodium (Colace) 100 mg PO Q12 PRN PRN Reason: Constipation Last Admin: 01/03/18 09:57 Dose: 100 mg Glucagon (Glucagen Diagnostic Kit) 0 mg IM .STAT PRN; Protocol PRN Reason: Hypoglycemia Protocol Glucagon (Glucagen Diagnostic Kit) 0 mg IM STAT PRN; Protocol PRN Reason: Hypoglycemia Protocol Piperacillin Sod/Tazobactam Sod (Zosyn 3.375 Gm Iv Premix) 3.375 gm in 50 mls @ 100 mls/hr IVPB Q8H [facility] PRN Reason: Protocol Last Admin: 01/10/18 05:22 Dose: 100 mls/hr Insulin Human NPH (Novolin N) 44 unit SC HS [facility] Last Admin: 01/09/18 21:55 Dose: 44 unit Insulin Human Regular (Novolin R) 0 unit SC ACHS [facility] Last Admin: 01/09/18 21:55 Dose: Not Given Insulin Human Regular (Novolin R) 14 unit SC AC [facility] Last Admin: 01/09/18 16:30 Dose: 14 unit Oxycodone/Acetaminophen (Percocet 5/325 Mg Tab) 1 tab PO Q8H PRN PRN Reason: Pain, moderate (4-7) Stop: 01/11/18 08:30 Last Admin: 01/10/18 05:23 Dose: 1 tab Pantoprazole Sodium (Protonix Ec Tab) 40 mg PO DAILY [facility] Last Admin: 01/09/18 09:46 Dose: 40 mg Saccharomyces Boulardii (Florastor) 250 mg PO BID [facility] Last Admin: 01/09/18 17:05 Dose: 250 mg Trazodone HCl (Desyrel) 50 mg PO HS PRN PRN Reason: Insomnia - Labs Labs: 01/09/18 07:09 01/09/18 07:09 PT 15.0 SECONDS (9.7-12.2) H 12/17/17 22:10 INR 1.3 12/17/17 22:10 APTT 27 SECONDS (21-34) 12/17/17 22:10 - Additional Findings Additional findings: Constitutional Appears: Non-toxic - Head Exam Head Exam: ATRAUMATIC, NORMAL INSPECTION, NORMOCEPHALIC - Eye Exam Eye Exam: EOMI, Normal appearance Pupil Exam: NORMAL ACCOMODATION, PERRL - ENT Exam ENT Exam: Mucous Membranes Moist, Normal Exam - Neck Exam Neck Exam: Full ROM. absent: Lymphadenopathy, Thyromegaly - Respiratory Exam Respiratory Exam: Clear to Ausculation Bilateral, NORMAL BREATHING PATTERN. absent: Decreased Breath Sounds - Cardiovascular Exam Cardiovascular Exam: REGULAR RHYTHM, +S1, +S2. absent: Bradycardia, Tachycardia - GI/Abdominal Exam GI & Abdominal Exam: Soft, Normal Bowel Sounds. absent: Tenderness - Extremities Exam Extremities Exam: Full ROM, Normal Capillary Refill Additional comments: left foot dressings c/d/i, patient denies pain in left foot. - Back Exam Back Exam: Full ROM. absent: paraspinal tenderness - Neurological Exam Neurological Exam: Awake, CN II-XII Intact Neuro motor strength exam: Left Upper Extremity: 5, Right Upper Extremity: 5, Left Lower Extremity: 5, Right Lower Extremity: 5 - Psychiatric Exam Psychiatric exam: Normal Affect, Normal Mood - Skin Skin Exam: Dry, Intact, Normal Color, Warm Assessment and Plan - Assessment and Plan (Free Text) Assessment: Assessment & Plan: Podiatry: Dr. Hernandez * continue non-weight bearing to left foot, patient will need outpatient follow up with Dr. Hernandez * s/p left foot incision, drainage and debridement of non-viable tissue on with Dr. Hernandez * S/p bedside incision and drainage 12/18/17 * S/p left foot incision and drainage for left foot soft tissue emphysema 12/18/17 * wound care and pain management as per podiatry team * Per podiatry: no further surgical management at this point. ID: Dr. Brooks, help appreciated - patient may be able to have rocephin 2g/IV daily for 6 weeks rather than zosyn q8h (+) Leukocytosis * Infectious Disease consult: Dr Brooks * Blood culture negative at 3 days x2 * Left foot wound culture:Proteus Mirabilis and Group G Strep * resolved and stable until 01/08 * 01/08: leukocytosis, afebrile Imaging: * X-ray left foot - gas emphysema noted dorsum and plantar aspect of mid-foot * Left foot X-rays s/p bedside I&D (12/18/17): Postsurgical changes with subcutaneous emphysema seen. Focal osteopenia in the 4th and 5th metatarsal heads may reflect underlying osteomyelitis. * Left foot X-rays left tib-fib (12/18/17): Subcutaneous emphysema is seen tracking along the lateral lower extremity. * Left foot X-ray (12/17/17): Extensive left forefoot subcutaneous gas and poor visualization of the 4th metatarsal head is likely related to osteomyelitis and soft tissue abscess. * MRI to assess for osteomyelitis - Findings consistent with osteomyelitis involving the distal portion and the head of the 4th metatarsal and also involving the proximal phalanx of the 4th toe. * Suspicious for septic arthritis of the 4th metatarsophalangeal joint. * Bone marrow edema and questionable small erosion noted at the head of the 3rd metatarsal bone may represent an early osteomyelitis. * Mild bone marrow edema noted at the proximal phalanx of the 3rd and 5th toe likely represent reactive changes due to hyperemia. * Diffuse soft tissue infection/inflammatory process at the lateral distal portion of the left foot associated with foci of air in the subcutaneous and deep soft tissue. The possibility of small abscess formation cannot be totally excluded in this noncontrast enhanced study. * Soft tissue edema and diffuse myositis at the mid and distal portion of the left foot. * As per podiatry note (12/20/17): Patient was informed of the MRI result with possible treatment options. Amputation of left 3rd 4th 5th rays discussed, which patient adamantly refused. * JASPER/PVR: Right JASPER non diagnostic due to arterial wall calcification, PVR waveforms show normal arterial perfusion to bilateral lower extremities at rest , normal toe brachial indexes left JASPER non diagnostic due to arterial wall calcification. PVR waveforms have normal arterial perfusion to bilateral lower extremities at rest normal toe brachial indexes. recommend CTA Medication/Management: Pain: patient was on morphine at high doses, weaned down. Continue Percocet 5/325 q6h (started on 12/26) Discontinued: Meropenem 500mg IV Q6H (Started 12/18/17), Vancomycin 1g IV Q12H ( Started 12/18/17) Zosyn (Started 12/20/17). Per Lee Blair to finish in 6 weeks on 01/31/18 Florastor 250mg PO BID PT/OT treatment and evaluation PICC line placed right arm on 12/23 (2) Uncontrolled diabetes mellitus Assessment & Plan: Endocrinology consults, Dr. Mcconnell, help appreciated Hgb A1c (12/18/17): 12.3 Hgb A1c (12/30/17): 11.1 Accuchecks ACHS Novolin R 14 u SC AC Novolin R SC ACHS NPH 40u SC HS Endo Consult: Dr. Mcconnell Hypoglycemia protocol (3) HTN (hypertension) Assessment & Plan: BP well controlled continue to monitor (4) Prophylaxis Assessment & Plan: Protonix 40mg PO QD DVT: SCD and Heparin SC Physical therapy: non-weight bearing to left foot, advance per podiatry recommendations Heart healthy, diabetic diet (edited to low carbohydrate consistent diet 01/04) Diabetic virtual assistant referral Colace 100mg PO q12h prn for constipation Zosyn (Started 12/20/17). Per Lee Blair to finish in 6 weeks on 01/31/18 Patient has a PICC line. f/u with Dr. Brooks for IV Invanz v Cipro PO v keep for next 3 weeks 01/[address] Brooks, concern for patient's hygeine and compliance issues [employer] on board to set up with infusion center with Dr. Brooks's recommendation. discussed with attending Lacy Teague DO PGY1
[2018-01-10] MEDS: (Novolin R) Insulin Human Regular 100 units/ml vial SC SCH ×8 (07:46→21:56)
--- NOTE | 2018-01-10 09:10 | CP.PCM.PN ---
Subjective - Date & Time of Evaluation Date of Evaluation: 01/10/18 Time of Evaluation: 09:06 - Subjective Subjective: Podiatry Progress Note - Dr. David KnightM seen and evaluated at bedside 23 days s/p left foot I&D (DOS 12/18/17) and 14 days s/p follow up left foot I&D (DOS 12/27/17). Patient is seen resting comfortably in bed, in NAD, and AA0x3. Patient reports that the pain has improved. No acute events overnight. Offers no other pedal complaints. Denies N /V/F/D/C/SOB/WINTER/dizziness. Objective - Vital Signs/Intake and Output Vital Signs (last 24 hours): Temp Pulse Resp BP Pulse Ox 97.7 F 85 20 135/84 98 01/10/18 07:43 01/10/18 07:43 01/10/18 07:43 01/10/18 07:43 01/10/18 07:43 Intake and Output: 01/10/18 01/10/18 06:59 18:59 Intake Total 500 530 Balance 500 530 - Medications Medications: Current Medications Benzonatate (Tessalon Perles) 100 mg PO TID PRN PRN Reason: FOR COUGH Last Admin: 01/03/18 13:45 Dose: 100 mg Dextrose (Dextrose 50% Inj) 0 ml IVP .STAT PRN; Protocol PRN Reason: Hypoglycemia Protocol Last Admin: 01/05/18 14:14 Dose: 50 ml Dextrose (Glutose 15) 0 gm PO .ONCE PRN; Protocol PRN Reason: Hypoglycemia Protocol Dextrose (Dextrose 50% Inj) 0 ml IV STAT PRN; Protocol PRN Reason: Hypoglycemia Protocol Dextrose (Glutose 15) 0 gm PO ONCE PRN; Protocol PRN Reason: Hypoglycemia Protocol Docusate Sodium (Colace) 100 mg PO Q12 PRN PRN Reason: Constipation Last Admin: 01/03/18 09:57 Dose: 100 mg Glucagon (Glucagen Diagnostic Kit) 0 mg IM .STAT PRN; Protocol PRN Reason: Hypoglycemia Protocol Glucagon (Glucagen Diagnostic Kit) 0 mg IM STAT PRN; Protocol PRN Reason: Hypoglycemia Protocol Piperacillin Sod/Tazobactam Sod (Zosyn 3.375 Gm Iv Premix) 3.375 gm in 50 mls @ 100 mls/hr IVPB Q8H [facility] PRN Reason: Protocol Last Admin: 01/10/18 05:22 Dose: 100 mls/hr Insulin Human NPH (Novolin N) 44 unit SC HS [facility] Last Admin: 01/09/18 21:55 Dose: 44 unit Insulin Human Regular (Novolin R) 0 unit SC ACHS [facility] Last Admin: 01/10/18 07:46 Dose: Not Given Insulin Human Regular (Novolin R) 14 unit SC AC [facility] Last Admin: 01/10/18 08:30 Dose: 14 unit Oxycodone/Acetaminophen (Percocet 5/325 Mg Tab) 1 tab PO Q8H PRN PRN Reason: Pain, moderate (4-7) Stop: 01/11/18 08:30 Last Admin: 01/10/18 05:23 Dose: 1 tab Pantoprazole Sodium (Protonix Ec Tab) 40 mg PO DAILY [facility] Last Admin: 01/09/18 09:46 Dose: 40 mg Saccharomyces Boulardii (Florastor) 250 mg PO BID [facility] Last Admin: 01/09/18 17:05 Dose: 250 mg Trazodone HCl (Desyrel) 50 mg PO PRN PRN Reason: Insomnia - Labs Labs: 01/09/18 07:09 01/09/18 07:09 PT 15.0 SECONDS (9.7-12.2) H 12/17/17 22:10 INR 1.3 12/17/17 22:10 APTT 27 SECONDS (21-34) 12/17/17 22:10 - Constitutional Appears: Well, Non-toxic, No Acute Distress - Extremities Exam Additional comments: Left lower extremity exam Dressing to left foot remains intact with a moderate amount of strikethrough present overlying wound at bases of 4th and 5th digit. DERM: Dorsal, medial and plantar incisions measuring roughly 5 cm in length appreciated as well as roughly 7 cm lateral ankle incision. All skin edges well coapted and all sutures intact. 1 CC of purulent drainage noted from dorsal lateral ulceration today. Dorsolateral ulceration measuring 1cm x 1.5cm x 0.5cm slightly macerated and protruding soft tissue; no probe to bone, absent malodor. Mild periwound erythema noted to dorsal incision and dorsolateral ulceration.mild maceration noted to proximal aspect of plantar incision noted. VASC: Non-palpable DP/PT noted secondary to edema. Nonpitting edema remains to entire left foot. 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 No pain on palpation to dorsolateral ulceration. - Neurological Exam Neurological Exam: Alert, Awake, Oriented x3 - Psychiatric Exam Psychiatric exam: Normal Affect, Normal Mood Assessment and Plan - Assessment and Plan (Free Text) Assessment: 52M 23 days s/p left foot I&D (DOS 12/18/17) and 14 days s/p follow up left foot I &D (DOS 12/27/17). Plan: Patient seen and evaluated at bedside Discussed with attending, Dr. Hernandez labs and vitals reviewed; Afebrile Ankle and tib/fib xrays both negative for soft tissue emphysema Continue local wound care - betadine soaked 4x4s, ABD, kerlix -Approximately 1cc purulence able to be expressed from wound proximal to 4th and 5th digits -Reinforce tight glucose control for wound healing Patient is to remain strictly NWB LLE with the assistance of walker Patient has OM of the 4th metatarsal but has been refusing amputation at this time. no further surgical intervention planned at this time due to patients refusal, will treat with abx and local wound care Stable from podiatry standpoint Patient is to follow up with Dr. Hernandez in the podiatry clinic (Saturday afternoons 12-3) for continued wound care and stitches removal Podiatry will continue to follow patient while in house
[2018-01-10] MEDS: Saccharomyces Boulardi 250 mg Cap PO SCH ×2 (09:45→17:08)
[2018-01-10] MEDS: Pantoprazole 40 mg EC Tab PO SCH (09:45)
[2018-01-10 15:19] LABS: BASO # 0.1 K/uL (0.0-0.2); BASO % 1.1 % (0.0-2.0); EOS # 0.7 K/uL (0.0-0.7); EOS % 10.1 % (0.0-4.0); LYMPH # 2.2 K/uL (1.0-4.3); LYMPH % 30.8 % (20.0-40.0); MEAN CORPUSCULAR HEMOGLOBIN 32.7 pg (27.0-31.0); MEAN PLATELET VOLUME 7.2 fL (7.2-11.7); MONO # 0.8 K/uL (0.0-0.8); MONO % 11.2 % (0.0-10.0); NEUT # 3.4 K/uL (1.8-7.0); NEUT % 46.8 % (50.0-75.0); RBC 3.07 Mil/uL (4.40-5.90); RED CELL DISTRIBUTION WIDTH 15.1 % (11.5-14.5); WHITE BLOOD COUNT 7.2 K/uL (4.8-10.8)
[2018-01-10 15:53] LABS: ALB/GLOB RATIO 0.9 (1.0-2.1); ALBUMIN 3.7 g/dL (3.5-5.0); ALT/SGPT 33 U/L (21-72); AST/SGOT 22 U/L (17-59); BLOOD UREA NITROGEN 13 mg/dL (9-20); CALCIUM 9.1 mg/dl (8.6-10.4); GFR AFRICAN-AMERICAN > 60; GFR NON-AFRICAN AMERICAN > 60
[2018-01-10] MEDS: (Novolin N) Insulin Human Isophane (NPH) 100 u/ml 10 ml vial SC SCH ×2 (21:58→22:26)
--- NOTE | 2018-01-11 01:05 | CP.PCM.PN ---
<Gabriel Love - Last Filed: 01/11/18 01:02> Subjective - Date & Time of Evaluation Date of Evaluation: 01/11/18 Time of Evaluation: 01:02 - Subjective Subjective: PGY-[address] Irena Thomason. No acute events noted overnight. Patient states he's tolerating pain well. Patient denies leg edema, chest pain, shortness of breath. Objective - Vital Signs/Intake and Output Vital Signs (last 24 hours): Temp Pulse Resp BP Pulse Ox 98.2 F 95 H 20 112/69 97 01/10/18 16:00 01/10/18 16:00 01/10/18 16:00 01/10/18 16:00 01/10/18 16:00 Intake and Output: 01/10/18 01/11/18 18:59 06:59 Intake Total 1060 Balance 1060 - Medications Medications: Current Medications Benzonatate (Tessalon Perles) 100 mg PO TID PRN PRN Reason: FOR COUGH Last Admin: 01/03/18 13:45 Dose: 100 mg Dextrose (Dextrose 50% Inj) 0 ml IVP .STAT PRN; Protocol PRN Reason: Hypoglycemia Protocol Last Admin: 01/05/18 14:14 Dose: 50 ml Dextrose (Glutose 15) 0 gm PO .ONCE PRN; Protocol PRN Reason: Hypoglycemia Protocol Dextrose (Dextrose 50% Inj) 0 ml IV STAT PRN; Protocol PRN Reason: Hypoglycemia Protocol Dextrose (Glutose 15) 0 gm PO ONCE PRN; Protocol PRN Reason: Hypoglycemia Protocol Docusate Sodium (Colace) 100 mg PO Q12 PRN PRN Reason: Constipation Last Admin: 01/03/18 09:57 Dose: 100 mg Glucagon (Glucagen Diagnostic Kit) 0 mg IM .STAT PRN; Protocol PRN Reason: Hypoglycemia Protocol Glucagon (Glucagen Diagnostic Kit) 0 mg IM STAT PRN; Protocol PRN Reason: Hypoglycemia Protocol Piperacillin Sod/Tazobactam Sod (Zosyn 3.375 Gm Iv Premix) 3.375 gm in 50 mls @ 100 mls/hr IVPB Q8H KAUSHIK PRN Reason: Protocol Last Admin: 01/10/18 21:24 Dose: 100 mls/hr Insulin Human NPH (Novolin N) 44 unit SC HS [facility]AUSHIK Last Admin: 01/10/18 22:26 Dose: 44 unit Insulin Human Regular (Novolin R) 0 unit SC ACHS [facility] Last Admin: 01/10/18 21:56 Dose: 3 unit Insulin Human Regular (Novolin R) 14 unit SC AC [facility] Last Admin: 01/10/18 17:10 Dose: Not Given Oxycodone/Acetaminophen (Percocet 5/325 Mg Tab) 1 tab PO Q8H PRN PRN Reason: Pain, moderate (4-7) Stop: 01/11/18 08:30 Last Admin: 01/10/18 14:08 Dose: 1 tab Pantoprazole Sodium (Protonix Ec Tab) 40 mg PO DAILY [facility] Last Admin: 01/10/18 09:45 Dose: 40 mg Saccharomyces Boulardii (Florastor) 250 mg PO BID [facility] Last Admin: 01/10/18 17:08 Dose: 250 mg Trazodone HCl (Desyrel) 50 mg PO HS PRN PRN Reason: Insomnia - Labs Labs: 01/10/18 15:13 01/10/18 15:13 PT 15.0 SECONDS (9.7-12.2) H 12/17/17 22:10 INR 1.3 12/17/17 22:10 APTT 27 SECONDS (21-34) 12/17/17 22:10 - Additional Findings Additional findings: - Constitutional Appears: Non-toxic - Head Exam Head Exam: ATRAUMATIC, NORMAL INSPECTION, NORMOCEPHALIC - Eye Exam Eye Exam: EOMI, Normal appearance Pupil Exam: NORMAL ACCOMODATION, PERRL - ENT Exam ENT Exam: Mucous Membranes Moist, Normal Exam - Neck Exam Neck Exam: Full ROM. absent: Lymphadenopathy, Thyromegaly - Respiratory Exam Respiratory Exam: Clear to Ausculation Bilateral, NORMAL BREATHING PATTERN. absent: Decreased Breath Sounds - Cardiovascular Exam Cardiovascular Exam: REGULAR RHYTHM, +S1, +S2. absent: Bradycardia, Tachycardia - GI/Abdominal Exam GI & Abdominal Exam: Soft, Normal Bowel Sounds. absent: Tenderness - Extremities Exam Extremities Exam: Full ROM, Normal Capillary Refill Additional comments: left foot dressings c/d/i, patient denies pain in left foot. - Back Exam Back Exam: Full ROM. absent: paraspinal tenderness - Neurological Exam Neurological Exam: Awake, CN II-XII Intact Neuro motor strength exam: Left Upper Extremity: 5, Right Upper Extremity: 5, Left Lower Extremity: 5, Right Lower Extremity: 5 - Psychiatric Exam Psychiatric exam: Normal Affect, Normal Mood - Skin Skin Exam: Dry, Intact, Normal Color, Warm Assessment and Plan (1) Diabetic infection of left foot Status: Acute (2) HTN (hypertension) Status: Chronic (3) Uncontrolled diabetes mellitus Status: Acute (4) Prophylactic measure Status: Acute - Assessment and Plan (Free Text) Assessment: (1) Diabetic foot ulcers Assessment & Plan: Podiatry: Dr. Hernandez * continue non-weight bearing to left foot, patient will need outpatient follow up with Dr. Hernandez * s/p left foot incision, drainage and debridement of non-viable tissue on with Dr. Hernandez * S/p bedside incision and drainage 12/18/17 * S/p left foot incision and drainage for left foot soft tissue emphysema 12/18/17 * wound care and pain management as per podiatry team * Per podiatry: no further surgical management at this point. ID: Dr. Brooks, help appreciated - patient may be able to have rocephin 2g/IV daily for 6 weeks rather than zosyn q8h (+) Leukocytosis * Infectious Disease consult: Dr Brooks * Blood culture negative at 3 days x2 * Left foot wound culture:Proteus Mirabilis and Group G Strep * resolved and stable until 01/08 * 01/08: leukocytosis, afebrile Imaging: * X-ray left foot - gas emphysema noted dorsum and plantar aspect of mid-foot * Left foot X-rays s/p bedside I&D (12/18/17): Postsurgical changes with subcutaneous emphysema seen. Focal osteopenia in the 4th and 5th metatarsal heads may reflect underlying osteomyelitis. * Left foot X-rays left tib-fib (12/18/17): Subcutaneous emphysema is seen tracking along the lateral lower extremity. * Left foot X-ray (12/17/17): Extensive left forefoot subcutaneous gas and poor visualization of the 4th metatarsal head is likely related to osteomyelitis and soft tissue abscess. * MRI to assess for osteomyelitis - Findings consistent with osteomyelitis involving the distal portion and the head of the 4th metatarsal and also involving the proximal phalanx of the 4th toe. * Suspicious for septic arthritis of the 4th metatarsophalangeal joint. * Bone marrow edema and questionable small erosion noted at the head of the 3rd metatarsal bone may represent an early osteomyelitis. * Mild bone marrow edema noted at the proximal phalanx of the 3rd and 5th toe likely represent reactive changes due to hyperemia. * Diffuse soft tissue infection/inflammatory process at the lateral distal portion of the left foot associated with foci of air in the subcutaneous and deep soft tissue. The possibility of small abscess formation cannot be totally excluded in this noncontrast enhanced study. * Soft tissue edema and diffuse myositis at the mid and distal portion of the left foot. * As per podiatry note (12/20/17): Patient was informed of the MRI result with possible treatment options. Amputation of left 3rd 4th 5th rays discussed, which patient adamantly refused. * JASPER/PVR: Right JASPER non diagnostic due to arterial wall calcification, PVR waveforms show normal arterial perfusion to bilateral lower extremities at rest , normal toe brachial indexes left JASPER non diagnostic due to arterial wall calcification. PVR waveforms have normal arterial perfusion to bilateral lower extremities at rest normal toe brachial indexes. recommend CTA Medication/Management: Pain: patient was on morphine at high doses, weaned down. Continue Percocet 5/325 q6h (started on 12/26) Discontinued: Meropenem 500mg IV Q6H (Started 12/18/17), Vancomycin 1g IV Q12H ( Started 12/18/17) Zosyn (Started 12/20/17). Per Dr. Brooks, Zosyn to finish in 6 weeks on 01/31/18 Florastor 250mg PO BID PT/OT treatment and evaluation PICC line placed right arm on 12/23 (2) Uncontrolled diabetes mellitus Assessment & Plan: Endocrinology consults, Dr. Mcconnell, help appreciated Hgb A1c (12/18/17): 12.3 Hgb A1c (12/30/17): 11.1 Accuchecks ACHS Novolin R 14 u SC AC Novolin R SC ACHS NPH 40u SC HS Endo Consult: Dr. Mcconnell Hypoglycemia protocol (3) HTN (hypertension) Assessment & Plan: BP well controlled continue to monitor (4) Prophylaxis Assessment & Plan: Protonix 40mg PO QD DVT: SCD and Heparin SC Physical therapy: non-weight bearing to left foot, advance per podiatry recommendations Heart healthy, diabetic diet (edited to low carbohydrate consistent diet 01/04) Diabetic hand folder referral Colace 100mg PO q12h prn for constipation Zosyn (Started 12/20/17). Per Dr. Brooks, Zosyn to finish in 6 weeks on 01/31/18 Patient has a PICC line. f/u with Dr. Brooks for IV Invanz v Cipro PO v keep for next 3 weeks 01/[address] Brooks, concern for patient's hygeine and compliance issues [employer]isher on board to set up with infusion center with Dr. Brooks's recommendation. discussed with attending <Nicolas Thomason - Last Filed: 01/11/18 14:44> Objective - Vital Signs/Intake and Output Vital Signs (last 24 hours): Temp Pulse Resp BP Pulse Ox 98.7 F 97 H 20 123/83 99 01/11/18 07:41 01/11/18 07:41 01/11/18 07:41 01/11/18 07:41 01/11/18 07:41 Intake and Output: 01/11/18 01/11/18 06:59 18:59 Intake Total 450 Balance 450 - Medications Medications: Current Medications Acetaminophen (Tylenol 325mg Tab) 650 mg PO Q6 PRN PRN Reason: Pain, moderate (4-7) Last Admin: 01/11/18 11:57 Dose: 650 mg Benzonatate (Tessalon Perles) 100 mg PO TID PRN PRN Reason: FOR COUGH Last Admin: 01/03/18 13:45 Dose: 100 mg Dextrose (Dextrose 50% Inj) 0 ml IVP .STAT PRN; Protocol PRN Reason: Hypoglycemia Protocol Last Admin: 01/05/18 14:14 Dose: 50 ml Dextrose (Glutose 15) 0 gm PO .ONCE PRN; Protocol PRN Reason: Hypoglycemia Protocol Dextrose (Dextrose 50% Inj) 0 ml IV STAT PRN; Protocol PRN Reason: Hypoglycemia Protocol Dextrose (Glutose 15) 0 gm PO ONCE PRN; Protocol PRN Reason: Hypoglycemia Protocol Docusate Sodium (Colace) 100 mg PO Q12 PRN PRN Reason: Constipation Last Admin: 01/03/18 09:57 Dose: 100 mg Glucagon (Glucagen Diagnostic Kit) 0 mg IM .STAT PRN; Protocol PRN Reason: Hypoglycemia Protocol Glucagon (Glucagen Diagnostic Kit) 0 mg IM STAT PRN; Protocol PRN Reason: Hypoglycemia Protocol Piperacillin Sod/Tazobactam Sod (Zosyn 3.375 Gm Iv Premix) 3.375 gm in 50 mls @ 100 mls/hr IVPB Q8H [facility]AUSHIK PRN Reason: Protocol Last Admin: 01/11/18 05:30 Dose: 100 mls/hr Insulin Human NPH (Novolin N) 44 unit SC HS [facility] Last Admin: 01/10/18 22:26 Dose: 44 unit Insulin Human Regular (Novolin R) 0 unit SC ACHS [facility] Last Admin: 01/11/18 11:35 Dose: Not Given Insulin Human Regular (Novolin R) 14 unit SC AC [facility] Last Admin: 01/11/18 13:33 Dose: Not Given Pantoprazole Sodium (Protonix Ec Tab) 40 mg PO DAILY [facility] Last Admin: 01/11/18 09:37 Dose: 40 mg Saccharomyces Boulardii (Florastor) 250 mg PO BID [facility] Last Admin: 01/11/18 09:37 Dose: 250 mg Trazodone HCl (Desyrel) 50 mg PO HS PRN PRN Reason: Insomnia - Labs Labs: 01/11/18 13:07 01/11/18 13:07 PT 15.0 SECONDS (9.7-12.2) H 12/17/17 22:10 INR 1.3 12/17/17 22:10 APTT 27 SECONDS (21-34) 12/17/17 22:10 Attending/Attestation - Attestation I have personally seen and examined this patient.: Yes I have fully participated in the care of the patient.: Yes I have reviewed all pertinent clinical information, including history, physical exam and plan: Yes Notes (Text): 01/11/18 14:35 Patient was seen and examined at 11:00 AM Spoke at length with patient who was witnessed by Nurse Jones to be walking and bearing weight on both feet, that he should NOT be bearing weight on the left foot and should be using a walker at all times. Medicine Team please speak with [employer] on Saturday01/13/18 about setting up [facility] infusion with Rocephin 2 gm IV 1x/day through 01/31/18. I do NOT believe we can use Fluoroquinolones for this. Please make sure Rocephin is ok with ID Dr. Brooks. He will need to follow up with [employer] Dr. Hernandez at the [facility] on Mondays between 12-3 PM Patient will also need a walker for home. NO more narcotics for this patient. Nicolas Thomason D.O. 01/11/18 14:43
[2018-01-11] MEDS: Oxycodone/Acetaminophen 5/325 mg Tab PO PRN (04:00)
[2018-01-11] MEDS: Piperacill/Tazo 3.375gm in Dex 3.375 GM/50 ML BAG IVPB SCH ×3 (05:30→21:34)
[2018-01-11] MEDS: (Novolin R) Insulin Human Regular 100 units/ml vial SC SCH ×8 (07:36→21:33)
[2018-01-11] MEDS: Saccharomyces Boulardi 250 mg Cap PO SCH ×2 (09:37→17:49)
[2018-01-11] MEDS: Pantoprazole 40 mg EC Tab PO SCH (09:37)
[2018-01-11 13:11] LABS: BASO # 0.1 K/uL (0.0-0.2); BASO % 1.1 % (0.0-2.0); EOS # 0.8 K/uL (0.0-0.7); EOS % 9.4 % (0.0-4.0); HEMOGLOBIN 10.4 g/dL (12.0-18.0); LYMPH # 2.1 K/uL (1.0-4.3); LYMPH % 25.6 % (20.0-40.0); MEAN CELL VOLUME 97.3 fL (80.0-94.0); MEAN CORPUSCULAR HEMOGLOBIN 33.5 pg (27.0-31.0); MEAN CORPUSCULAR HGB CONC 34.4 g/dL (33.0-37.0); MEAN PLATELET VOLUME 7.5 fL (7.2-11.7); MONO # 0.9 K/uL (0.0-0.8); MONO % 11.2 % (0.0-10.0); NEUT # 4.4 K/uL (1.8-7.0); NEUT % 52.7 % (50.0-75.0); RBC 3.1 Mil/uL (4.40-5.90); RED CELL DISTRIBUTION WIDTH 15.5 % (11.5-14.5); WHITE BLOOD COUNT 8.3 K/uL (4.8-10.8)
[2018-01-11 13:30] LABS: ALB/GLOB RATIO 0.9 (1.0-2.1); ALBUMIN 3.9 g/dL (3.5-5.0); ALT/SGPT 31 U/L (21-72); AST/SGOT 26 U/L (17-59); BLOOD UREA NITROGEN 20 mg/dL (9-20); CALCIUM 10.1 mg/dl (8.6-10.4); GFR AFRICAN-AMERICAN > 60; GFR NON-AFRICAN AMERICAN > 60
--- NOTE | 2018-01-11 16:09 | CP.PCM.PN ---
Subjective - Date & Time of Evaluation Date of Evaluation: 01/11/18 Time of Evaluation: 16:06 - Subjective Subjective: Podiatry Progress Note - Dr. David KnightM seen and evaluated at bedside 24 days s/p left foot I&D (DOS 12/18/17) and 15 days s/p follow up left foot I&D (DOS 12/27/17). Patient is AAO x 3 and NAD at time of examination. States that pain is well controlled. Denies any acute overnight events or any new pedal complaints at this time. When questioned, patient admitted to walking on his left foot against doctors request. Patient is aware of plan for his discharge home on Saturday with daily IV abx infusion in the hospital Objective - Vital Signs/Intake and Output Vital Signs (last 24 hours): Temp Pulse Resp BP Pulse Ox 98.7 F 97 H 20 123/83 99 01/11/18 07:41 01/11/18 07:41 01/11/18 07:41 01/11/18 07:41 01/11/18 07:41 Intake and Output: 01/11/18 01/11/18 06:59 18:59 Intake Total 450 Balance 450 - Medications Medications: Current Medications Acetaminophen (Tylenol 325mg Tab) 650 mg PO Q6 PRN PRN Reason: Pain, moderate (4-7) Last Admin: 01/11/18 11:57 Dose: 650 mg Benzonatate (Tessalon Perles) 100 mg PO TID PRN PRN Reason: FOR COUGH Last Admin: 01/03/18 13:45 Dose: 100 mg Dextrose (Dextrose 50% Inj) 0 ml IVP .STAT PRN; Protocol PRN Reason: Hypoglycemia Protocol Last Admin: 01/05/18 14:14 Dose: 50 ml Dextrose (Glutose 15) 0 gm PO .ONCE PRN; Protocol PRN Reason: Hypoglycemia Protocol Dextrose (Dextrose 50% Inj) 0 ml IV STAT PRN; Protocol PRN Reason: Hypoglycemia Protocol Dextrose (Glutose 15) 0 gm PO ONCE PRN; Protocol PRN Reason: Hypoglycemia Protocol Docusate Sodium (Colace) 100 mg PO Q12 PRN PRN Reason: Constipation Last Admin: 01/03/18 09:57 Dose: 100 mg Glucagon (Glucagen Diagnostic Kit) 0 mg IM .STAT PRN; Protocol PRN Reason: Hypoglycemia Protocol Glucagon (Glucagen Diagnostic Kit) 0 mg IM STAT PRN; Protocol PRN Reason: Hypoglycemia Protocol Piperacillin Sod/Tazobactam Sod (Zosyn 3.375 Gm Iv Premix) 3.375 gm in 50 mls @ 100 mls/hr IVPB Q8H [facility]HIK PRN Reason: Protocol Last Admin: 01/11/18 14:42 Dose: 100 mls/hr Insulin Human NPH (Novolin N) 44 unit SC HS [facility] Last Admin: 01/10/18 22:26 Dose: 44 unit Insulin Human Regular (Novolin R) 0 unit SC ACHS [facility] Last Admin: 01/11/18 11:35 Dose: Not Given Insulin Human Regular (Novolin R) 14 unit SC AC [facility] Last Admin: 01/11/18 13:33 Dose: Not Given Pantoprazole Sodium (Protonix Ec Tab) 40 mg PO DAILY [facility] Last Admin: 01/11/18 09:37 Dose: 40 mg Saccharomyces Boulardii (Florastor) 250 mg PO BID [facility] Last Admin: 01/11/18 09:37 Dose: 250 mg Trazodone HCl (Desyrel) 50 mg PO HS PRN PRN Reason: Insomnia - Labs Labs: 01/11/18 13:07 01/11/18 13:07 PT 15.0 SECONDS (9.7-12.2) H 12/17/17 22:10 INR 1.3 12/17/17 22:10 APTT 27 SECONDS (21-34) 12/17/17 22:10 - Constitutional Appears: Well, Non-toxic, No Acute Distress - Extremities Exam Additional comments: Left lower extremity exam Dressing to left foot remains intact with a moderate amount of strikethrough present overlying wound at bases of 4th and 5th digit. DERM: Dorsal, medial and plantar incisions measuring roughly 5 cm in length appreciated as well as roughly 7 cm lateral ankle incision. All skin edges well coapted and all sutures intact except for plantar incision where maceration is noted surrounding the proximal portion of the incision site and gapping is appreciated between the skin edges. No signs of infection present. No purulent drainage noted from dorsal lateral incision site today. Dorsolateral incision site measuring 1cm x 1.5cm x 0.5cm slightly macerated and protruding soft tissue ; no probe to bone, absent malodor. Mild periwound erythema noted to dorsal incision and dorsolateral incision. VASC: Non-palpable DP/PT noted secondary to edema. Nonpitting edema remains to entire left foot. 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 No pain on palpation to dorsolateral ulceration. - Neurological Exam Neurological Exam: Alert, Awake, Oriented x3 - Psychiatric Exam Psychiatric exam: Normal Affect, Normal Mood Assessment and Plan - Assessment and Plan (Free Text) Assessment: 52M seen and evaluated at bedside 24 days s/p left foot I&D (DOS 12/18/17) and 15 days s/p follow up left foot I&D (DOS 12/27/17) Plan: Patient seen and evaluated at bedside Plan discussed with attending Dr. Hernandez Charts, labs and vitals reviewed Absent leukocytosis, vitals stable Continue medical management per medical team Continue IV abx per ID Surgical sites dressed with betadine, DSD No further plan for surigcal intervention at this time Per Dr. Brooks, patient to be DC home on Saturday and receive daily IV infusion at hospital (Rocephin 2g) x six weeks Podiatry will continue to follow while patient in house
[2018-01-11] MEDS: (Novolin N) Insulin Human Isophane (NPH) 100 u/ml 10 ml vial SC SCH (21:33)
--- NOTE | 2018-01-12 01:55 | CP.PCM.PN ---
<Gabriel Love - Last Filed: 01/12/18 01:52> Subjective - Date & Time of Evaluation Date of Evaluation: 01/12/18 Time of Evaluation: 01:52 - Subjective Subjective: PGY-[address] Taylor No acute events noted overnight. Patient states he's tolerating pain well. Patient denies leg edema, chest pain, shortness of breath. Objective - Vital Signs/Intake and Output Vital Signs (last 24 hours): Temp Pulse Resp BP Pulse Ox 98 F 88 20 148/83 98 01/11/18 23:26 01/11/18 23:26 01/11/18 23:26 01/11/18 23:26 01/11/18 23:26 - Medications Medications: Current Medications Acetaminophen (Tylenol 325mg Tab) 650 mg PO Q6 PRN PRN Reason: Pain, moderate (4-7) Last Admin: 01/11/18 11:57 Dose: 650 mg Benzonatate (Tessalon Perles) 100 mg PO TID PRN PRN Reason: FOR COUGH Last Admin: 01/03/18 13:45 Dose: 100 mg Dextrose (Dextrose 50% Inj) 0 ml IVP .STAT PRN; Protocol PRN Reason: Hypoglycemia Protocol Last Admin: 01/05/18 14:14 Dose: 50 ml Dextrose (Glutose 15) 0 gm PO .ONCE PRN; Protocol PRN Reason: Hypoglycemia Protocol Dextrose (Dextrose 50% Inj) 0 ml IV STAT PRN; Protocol PRN Reason: Hypoglycemia Protocol Dextrose (Glutose 15) 0 gm PO ONCE PRN; Protocol PRN Reason: Hypoglycemia Protocol Docusate Sodium (Colace) 100 mg PO Q12 PRN PRN Reason: Constipation Last Admin: 01/03/18 09:57 Dose: 100 mg Glucagon (Glucagen Diagnostic Kit) 0 mg IM .STAT PRN; Protocol PRN Reason: Hypoglycemia Protocol Glucagon (Glucagen Diagnostic Kit) 0 mg IM STAT PRN; Protocol PRN Reason: Hypoglycemia Protocol Piperacillin Sod/Tazobactam Sod (Zosyn 3.375 Gm Iv Premix) 3.375 gm in 50 mls @ 100 mls/hr IVPB Q8H KAUSHIK PRN Reason: Protocol Last Admin: 01/11/18 21:34 Dose: 100 mls/hr Ibuprofen (Motrin Tab) 400 mg PO Q6H PRN PRN Reason: Pain, moderate (4-7) Last Admin: 01/11/18 17:30 Dose: 400 mg Insulin Human NPH (Novolin N) 44 unit SC HS [facility] Last Admin: 01/11/18 21:33 Dose: 44 unit Insulin Human Regular (Novolin R) 0 unit SC ACHS [facility] Last Admin: 01/11/18 21:33 Dose: Not Given Insulin Human Regular (Novolin R) 14 unit SC AC [facility] Last Admin: 01/11/18 17:56 Dose: 14 unit Pantoprazole Sodium (Protonix Ec Tab) 40 mg PO DAILY [facility] Last Admin: 01/11/18 09:37 Dose: 40 mg Saccharomyces Boulardii (Florastor) 250 mg PO BID [facility] Last Admin: 01/11/18 17:49 Dose: 250 mg Trazodone HCl (Desyrel) 50 mg PO HS PRN PRN Reason: Insomnia - Labs Labs: 01/11/18 13:07 01/11/18 13:07 PT 15.0 SECONDS (9.7-12.2) H 12/17/17 22:10 INR 1.3 12/17/17 22:10 APTT 27 SECONDS (21-34) 12/17/17 22:10 - Additional Findings Additional findings: - Constitutional Appears: Non-toxic - Head Exam Head Exam: ATRAUMATIC, NORMAL INSPECTION, NORMOCEPHALIC - Eye Exam Eye Exam: EOMI, Normal appearance Pupil Exam: NORMAL ACCOMODATION, PERRL - ENT Exam ENT Exam: Mucous Membranes Moist, Normal Exam - Neck Exam Neck Exam: Full ROM. absent: Lymphadenopathy, Thyromegaly - Respiratory Exam Respiratory Exam: Clear to Ausculation Bilateral, NORMAL BREATHING PATTERN. absent: Decreased Breath Sounds - Cardiovascular Exam Cardiovascular Exam: REGULAR RHYTHM, +S1, +S2. absent: Bradycardia, Tachycardia - GI/Abdominal Exam GI & Abdominal Exam: Soft, Normal Bowel Sounds. absent: Tenderness - Extremities Exam Extremities Exam: Full ROM, Normal Capillary Refill Additional comments: left foot dressings c/d/i, patient denies pain in left foot. - Back Exam Back Exam: Full ROM. absent: paraspinal tenderness - Neurological Exam Neurological Exam: Awake, CN II-XII Intact Neuro motor strength exam: Left Upper Extremity: 5, Right Upper Extremity: 5, Left Lower Extremity: 5, Right Lower Extremity: 5 - Psychiatric Exam Psychiatric exam: Normal Affect, Normal Mood - Skin Skin Exam: Dry, Intact, Normal Color, Warm Assessment and Plan (1) Diabetic infection of left foot Status: Acute (2) HTN (hypertension) Status: Chronic (3) Uncontrolled diabetes mellitus Status: Acute (4) Prophylactic measure Status: Acute - Assessment and Plan (Free Text) Assessment: (1) Diabetic foot ulcers Assessment & Plan: Podiatry: Dr. Hernandez * continue non-weight bearing to left foot, patient will need outpatient follow up with Dr. Hernandez * s/p left foot incision, drainage and debridement of non-viable tissue on with Dr. Hernandez * S/p bedside incision and drainage 12/18/17 * S/p left foot incision and drainage for left foot soft tissue emphysema 12/18/17 * wound care and pain management as per podiatry team * Per podiatry: no further surgical management at this point. ID: Dr. Brooks, help appreciated - patient may be able to have rocephin 2g/IV daily for 6 weeks rather than zosyn q8h (+) Leukocytosis * Infectious Disease consult: Dr Brooks * Blood culture negative at 3 days x2 * Left foot wound culture:Proteus Mirabilis and Group G Strep * resolved and stable until 01/08 * 01/08: leukocytosis, afebrile Imaging: * X-ray left foot - gas emphysema noted dorsum and plantar aspect of mid-foot * Left foot X-rays s/p bedside I&D (12/18/17): Postsurgical changes with subcutaneous emphysema seen. Focal osteopenia in the 4th and 5th metatarsal heads may reflect underlying osteomyelitis. * Left foot X-rays left tib-fib (12/18/17): Subcutaneous emphysema is seen tracking along the lateral lower extremity. * Left foot X-ray (12/17/17): Extensive left forefoot subcutaneous gas and poor visualization of the 4th metatarsal head is likely related to osteomyelitis and soft tissue abscess. * MRI to assess for osteomyelitis - Findings consistent with osteomyelitis involving the distal portion and the head of the 4th metatarsal and also involving the proximal phalanx of the 4th toe. * Suspicious for septic arthritis of the 4th metatarsophalangeal joint. * Bone marrow edema and questionable small erosion noted at the head of the 3rd metatarsal bone may represent an early osteomyelitis. * Mild bone marrow edema noted at the proximal phalanx of the 3rd and 5th toe likely represent reactive changes due to hyperemia. * Diffuse soft tissue infection/inflammatory process at the lateral distal portion of the left foot associated with foci of air in the subcutaneous and deep soft tissue. The possibility of small abscess formation cannot be totally excluded in this noncontrast enhanced study. * Soft tissue edema and diffuse myositis at the mid and distal portion of the left foot. * As per podiatry note (12/20/17): Patient was informed of the MRI result with possible treatment options. Amputation of left 3rd 4th 5th rays discussed, which patient adamantly refused. * JASPER/PVR: Right JASPER non diagnostic due to arterial wall calcification, PVR waveforms show normal arterial perfusion to bilateral lower extremities at rest , normal toe brachial indexes left JASPER non diagnostic due to arterial wall calcification. PVR waveforms have normal arterial perfusion to bilateral lower extremities at rest normal toe brachial indexes. recommend CTA Medication/Management: Pain: patient was on morphine at high doses, weaned down. Continue Percocet 5/325 q6h (started on 12/26) Discontinued: Meropenem 500mg IV Q6H (Started 12/18/17), Vancomycin 1g IV Q12H ( Started 12/18/17) Zosyn (Started 12/20/17). Per Dr. Brooks, Chiosyn to finish in 6 weeks on 01/31/18 Florastor 250mg PO BID PT/OT treatment and evaluation PICC line placed right arm on 12/23 (2) Uncontrolled diabetes mellitus Assessment & Plan: Endocrinology consults, Dr. Mcconnell, help appreciated Hgb A1c (12/18/17): 12.3 Hgb A1c (12/30/17): 11.1 Accuchecks ACHS Novolin R 14 u SC AC Novolin R SC ACHS NPH 40u SC HS Endo Consult: Dr. Mcconnell Hypoglycemia protocol (3) HTN (hypertension) Assessment & Plan: BP well controlled continue to monitor (4) Prophylaxis Assessment & Plan: Protonix 40mg PO QD DVT: SCD and Heparin SC Physical therapy: non-weight bearing to left foot, advance per podiatry recommendations Heart healthy, diabetic diet (edited to low carbohydrate consistent diet 01/04) Diabetic commission sales associate referral Colace 100mg PO q12h prn for constipation Medicine Team please speak with [employer] Apprentice on Saturday01/13/18 about setting up [facility] infusion with Rocephin 2 gm IV 1x/day through 01/31/18. <Giuliano Taylor H - Last Filed: 01/12/18 10:56> Objective - Vital Signs/Intake and Output Vital Signs (last 24 hours): Temp Pulse Resp BP Pulse Ox 97.9 F 91 H 20 124/77 97 01/12/18 08:00 01/12/18 08:00 01/12/18 08:00 01/12/18 08:00 01/12/18 08:00 Intake and Output: 01/12/18 01/12/18 06:59 18:59 Intake Total 350 Balance 350 - Medications Medications: Current Medications Acetaminophen (Tylenol 325mg Tab) 650 mg PO Q6 PRN PRN Reason: Pain, moderate (4-7) Last Admin: 01/11/18 11:57 Dose: 650 mg Benzonatate (Tessalon Perles) 100 mg PO TID PRN PRN Reason: FOR COUGH Last Admin: 01/03/18 13:45 Dose: 100 mg Dextrose (Dextrose 50% Inj) 0 ml IVP .STAT PRN; Protocol PRN Reason: Hypoglycemia Protocol Last Admin: 01/05/18 14:14 Dose: 50 ml Dextrose (Glutose 15) 0 gm PO .ONCE PRN; Protocol PRN Reason: Hypoglycemia Protocol Dextrose (Dextrose 50% Inj) 0 ml IV STAT PRN; Protocol PRN Reason: Hypoglycemia Protocol Dextrose (Glutose 15) 0 gm PO ONCE PRN; Protocol PRN Reason: Hypoglycemia Protocol Docusate Sodium (Colace) 100 mg PO Q12 PRN PRN Reason: Constipation Last Admin: 01/03/18 09:57 Dose: 100 mg Glucagon (Glucagen Diagnostic Kit) 0 mg IM .STAT PRN; Protocol PRN Reason: Hypoglycemia Protocol Glucagon (Glucagen Diagnostic Kit) 0 mg IM STAT PRN; Protocol PRN Reason: Hypoglycemia Protocol Piperacillin Sod/Tazobactam Sod (Zosyn 3.375 Gm Iv Premix) 3.375 gm in 50 mls @ 100 mls/hr IVPB Q8H [facility]AUSHIK PRN Reason: Protocol Last Admin: 01/12/18 05:05 Dose: 100 mls/hr Ibuprofen (Motrin Tab) 400 mg PO Q6H PRN PRN Reason: Pain, moderate (4-7) Last Admin: 01/12/18 04:50 Dose: 400 mg Insulin Human NPH (Novolin N) 44 unit SC HS [facility] Last Admin: 01/11/18 21:33 Dose: 44 unit Insulin Human Regular (Novolin R) 0 unit SC ACHS [facility] Last Admin: 01/12/18 08:43 Dose: Not Given Insulin Human Regular (Novolin R) 14 unit SC AC [facility] Last Admin: 01/12/18 08:55 Dose: 14 unit Pantoprazole Sodium (Protonix Ec Tab) 40 mg PO DAILY [facility] Last Admin: 01/12/18 08:59 Dose: 40 mg Saccharomyces Boulardii (Florastor) 250 mg PO BID [facility] Last Admin: 01/12/18 09:00 Dose: 250 mg Trazodone HCl (Desyrel) 50 mg PO HS PRN PRN Reason: Insomnia - Labs Labs: 01/12/18 07:59 01/12/18 07:59 PT 15.0 SECONDS (9.7-12.2) H 12/17/17 22:10 INR 1.3 12/17/17 22:10 APTT 27 SECONDS (21-34) 12/17/17 22:10 Attending/Attestation - Attestation I have personally seen and examined this patient.: Yes I have fully participated in the care of the patient.: Yes I have reviewed all pertinent clinical information, including history, physical exam and plan: Yes Notes (Text): 01/12/18 10:55 Medical attending: Patient was seen and examined by me. No acute events overnight. Hopefully we will be able to discharge patient tommorow after discussion with case workers. The plan is for Rocephin IV QD and he will need additional outpatient follow up The patient is aware he will probably be leaving tommorow. thank you Giuliano Taylor
[2018-01-12] MEDS: Piperacill/Tazo 3.375gm in Dex 3.375 GM/50 ML BAG IVPB SCH ×3 (05:05→22:49)
[2018-01-12 08:18] LABS: BASO # 0.1 K/uL (0.0-0.2); EOS # 0.7 K/uL (0.0-0.7); EOS % 10.6 % (0.0-4.0); HEMOGLOBIN 10.6 g/dL (12.0-18.0); LYMPH # 1.6 K/uL (1.0-4.3); LYMPH % 22.9 % (20.0-40.0); MEAN CELL VOLUME 97.9 fL (80.0-94.0); MEAN CORPUSCULAR HEMOGLOBIN 33.6 pg (27.0-31.0); MEAN CORPUSCULAR HGB CONC 34.3 g/dL (33.0-37.0); MEAN PLATELET VOLUME 8.2 fL (7.2-11.7); MONO # 0.7 K/uL (0.0-0.8); MONO % 10.6 % (0.0-10.0); NEUT # 3.8 K/uL (1.8-7.0); NEUT % 54.9 % (50.0-75.0); RBC 3.16 Mil/uL (4.40-5.90); RED CELL DISTRIBUTION WIDTH 15.8 % (11.5-14.5); WHITE BLOOD COUNT 6.8 K/uL (4.8-10.8)
[2018-01-12 08:43] LABS: ALB/GLOB RATIO 0.9 (1.0-2.1); ALBUMIN 3.6 g/dL (3.5-5.0); ALT/SGPT 22 U/L (21-72); AST/SGOT 26 U/L (17-59); BLOOD UREA NITROGEN 23 mg/dL (9-20); CALCIUM 9.8 mg/dl (8.6-10.4); GFR AFRICAN-AMERICAN > 60; GFR NON-AFRICAN AMERICAN > 60
[2018-01-12] MEDS: (Novolin R) Insulin Human Regular 100 units/ml vial SC SCH ×7 (08:43→22:43)
[2018-01-12] MEDS: Pantoprazole 40 mg EC Tab PO SCH (08:59)
[2018-01-12] MEDS: Saccharomyces Boulardi 250 mg Cap PO SCH ×2 (09:00→18:00)
--- NOTE | 2018-01-12 09:23 | CP.PCM.PN ---
Subjective - Date & Time of Evaluation Date of Evaluation: 01/12/18 Time of Evaluation: 09:20 - Subjective Subjective: Podiatry Progress Note - Dr. David KnightM seen and evaluated at bedside 24 days s/p left foot I&D (DOS 12/18/17) and 16 days s/p follow up left foot I&D (DOS 12/27/17). Patient is AAO x 3 and NAD at time of examination. States that pain is well controlled. Denies any acute overnight events or any new pedal complaints at this time. Denies any recent N/V /F/C/CP/SOB/D/posterior calf pain. Patient is aware of plan for his discharge home tomorrow with daily IV abx infusion in the hospital Objective - Vital Signs/Intake and Output Vital Signs (last 24 hours): Temp Pulse Resp BP Pulse Ox 98 F 88 20 148/83 98 01/11/18 23:26 01/11/18 23:26 01/11/18 23:26 01/11/18 23:26 01/11/18 23:26 Intake and Output: 01/12/18 01/12/18 06:59 18:59 Intake Total 350 Balance 350 - Medications Medications: Current Medications Acetaminophen (Tylenol 325mg Tab) 650 mg PO Q6 PRN PRN Reason: Pain, moderate (4-7) Last Admin: 01/11/18 11:57 Dose: 650 mg Benzonatate (Tessalon Perles) 100 mg PO TID PRN PRN Reason: FOR COUGH Last Admin: 01/03/18 13:45 Dose: 100 mg Dextrose (Dextrose 50% Inj) 0 ml IVP .STAT PRN; Protocol PRN Reason: Hypoglycemia Protocol Last Admin: 01/05/18 14:14 Dose: 50 ml Dextrose (Glutose 15) 0 gm PO .ONCE PRN; Protocol PRN Reason: Hypoglycemia Protocol Dextrose (Dextrose 50% Inj) 0 ml IV STAT PRN; Protocol PRN Reason: Hypoglycemia Protocol Dextrose (Glutose 15) 0 gm PO ONCE PRN; Protocol PRN Reason: Hypoglycemia Protocol Docusate Sodium (Colace) 100 mg PO Q12 PRN PRN Reason: Constipation Last Admin: 01/03/18 09:57 Dose: 100 mg Glucagon (Glucagen Diagnostic Kit) 0 mg IM .STAT PRN; Protocol PRN Reason: Hypoglycemia Protocol Glucagon (Glucagen Diagnostic Kit) 0 mg IM STAT PRN; Protocol PRN Reason: Hypoglycemia Protocol Piperacillin Sod/Tazobactam Sod (Zosyn 3.375 Gm Iv Premix) 3.375 gm in 50 mls @ 100 mls/hr IVPB Q8H KAUSHIK PRN Reason: Protocol Last Admin: 01/12/18 05:05 Dose: 100 mls/hr Ibuprofen (Motrin Tab) 400 mg PO Q6H PRN PRN Reason: Pain, moderate (4-7) Last Admin: 01/12/18 04:50 Dose: 400 mg Insulin Human NPH (Novolin N) 44 unit SC HS [facility] Last Admin: 01/11/18 21:33 Dose: 44 unit Insulin Human Regular (Novolin R) 0 unit SC ACHS [facility] Last Admin: 01/12/18 08:43 Dose: Not Given Insulin Human Regular (Novolin R) 14 unit SC AC [facility] Last Admin: 01/12/18 08:55 Dose: 14 unit Pantoprazole Sodium (Protonix Ec Tab) 40 mg PO DAILY [facility] Last Admin: 01/12/18 08:59 Dose: 40 mg Saccharomyces Boulardii (Florastor) 250 mg PO BID [facility] Last Admin: 01/12/18 09:00 Dose: 250 mg Trazodone HCl (Desyrel) 50 mg PO HS PRN PRN Reason: Insomnia - Labs Labs: 01/12/18 07:59 01/12/18 07:59 PT 15.0 SECONDS (9.7-12.2) H 12/17/17 22:10 INR 1.3 12/17/17 22:10 APTT 27 SECONDS (21-34) 12/17/17 22:10 - Constitutional Appears: Well, Non-toxic, No Acute Distress - Extremities Exam Additional comments: Left lower extremity exam DERM: Dorsal, medial and plantar incisions measuring roughly 5 cm in length appreciated as well as roughly 7 cm lateral ankle incision. All skin edges well coapted and all sutures intact except for plantar incision where maceration is noted surrounding the proximal portion of the incision site and gapping is appreciated between the skin edges. Site appears same as yesterday. No signs of infection present. Minimal serous drainage noted from dorsal lateral incision site today. Dorsolateral incision site measuring 1cm x 1.5cm x 0.5cm slightly macerated and protruding soft tissue; no probe to bone, absent malodor. Mild periwound erythema noted to dorsal incision and dorsolateral incision. VASC: Non-palpable DP/PT noted secondary to edema. Nonpitting edema remains to entire left foot, improving. WRIST CLOSER less than 3 seconds noted to all digits NEURO: Gross sensation intact ORTHO: No pain on palpation noted to incision sites x4. No pain on palpation to dorsolateral ulceration. - Neurological Exam Neurological Exam: Alert, Awake, Oriented x3 - Psychiatric Exam Psychiatric exam: Normal Affect, Normal Mood Assessment and Plan - Assessment and Plan (Free Text) Assessment: 52M seen and evaluated at bedside 24 days s/p left foot I&D (DOS 12/18/17) and 16 days s/p follow up left foot I&D (DOS 12/27/17). Plan: Patient seen and evaluated at bedside Plan discussed with attending Dr. Hernandez Charts, labs and vitals reviewed Absent leukocytosis on last available CBC, vitals stable Continue medical management per medical team Continue IV abx per ID Surgical sites dressed with betadine, DSD No further plan for surigcal intervention at this time Per Dr. Brooks, patient to be DC home tomorrow and receive daily IV infusion at hospital (Rocephin 2g) x six weeks - patient is aware of plan Patient to follow up with Dr. Hernandez in podiatry clinic as well Podiatry will continue to follow while patient in house
[2018-01-12] MEDS ORDERED: Sodium Chloride 0.9% 500 ML IV ONE ×2 (21:56→22:54)
--- NOTE | 2018-01-12 22:05 | CP.PCM.PN ---
Subjective - Date & Time of Evaluation Date of Evaluation: 01/12/18 Time of Evaluation: 22:05 - Subjective Subjective: Patient was seen and examined at bedside in the evening for change in mental status. Per nurse the patient was chatting earlier, alert and oriented x3. Patient currently would respond by opening eyes to name and when asked to open eyes he would. Patient was not speaking so ROS were unattainable. Objective - Vital Signs/Intake and Output Vital Signs (last 24 hours): Temp Pulse Resp BP Pulse Ox 97.9 F 89 20 138/84 99 01/12/18 15:15 01/12/18 15:15 01/12/18 15:15 01/12/18 15:15 01/12/18 15:15 Intake and Output: 01/12/18 01/13/18 18:59 06:59 Intake Total 550 Balance 550 - Medications Medications: Current Medications Acetaminophen (Tylenol 325mg Tab) 650 mg PO Q6 PRN PRN Reason: Pain, moderate (4-7) Last Admin: 01/11/18 11:57 Dose: 650 mg Benzonatate (Tessalon Perles) 100 mg PO TID PRN PRN Reason: FOR COUGH Last Admin: 01/03/18 13:45 Dose: 100 mg Dextrose (Dextrose 50% Inj) 0 ml IVP .STAT PRN; Protocol PRN Reason: Hypoglycemia Protocol Last Admin: 01/05/18 14:14 Dose: 50 ml Dextrose (Glutose 15) 0 gm PO .ONCE PRN; Protocol PRN Reason: Hypoglycemia Protocol Dextrose (Dextrose 50% Inj) 0 ml IV STAT PRN; Protocol PRN Reason: Hypoglycemia Protocol Dextrose (Glutose 15) 0 gm PO ONCE PRN; Protocol PRN Reason: Hypoglycemia Protocol Docusate Sodium (Colace) 100 mg PO Q12 PRN PRN Reason: Constipation Last Admin: 01/03/18 09:57 Dose: 100 mg Glucagon (Glucagen Diagnostic Kit) 0 mg IM .STAT PRN; Protocol PRN Reason: Hypoglycemia Protocol Glucagon (Glucagen Diagnostic Kit) 0 mg IM STAT PRN; Protocol PRN Reason: Hypoglycemia Protocol Piperacillin Sod/Tazobactam Sod (Zosyn 3.375 Gm Iv Premix) 3.375 gm in 50 mls @ 100 mls/hr IVPB Q8H [facility]AUSHIK PRN Reason: Protocol Last Admin: 01/12/18 14:48 Dose: 100 mls/hr Sodium Chloride (Sodium Chloride 0.9%) 500 mls @ 1,000 mls/hr IV .Q30M ONE Stop: 01/12/18 22:25 Sodium Chloride (Sodium Chloride 0.9%) 1,000 mls @ 100 mls/hr IV .Q10H [facility] Ibuprofen (Motrin Tab) 400 mg PO Q6H PRN PRN Reason: Pain, moderate (4-7) Last Admin: 01/12/18 15:11 Dose: 400 mg Insulin Human NPH (Novolin N) 44 unit SC HS [facility] Last Admin: 01/11/18 21:33 Dose: 44 unit Insulin Human Regular (Novolin R) 0 unit SC ACHS [facility] Last Admin: 01/12/18 12:11 Dose: Not Given Insulin Human Regular (Novolin R) 14 unit SC AC [facility] Last Admin: 01/12/18 12:42 Dose: 14 unit Pantoprazole Sodium (Protonix Ec Tab) 40 mg PO DAILY [facility] Last Admin: 01/12/18 08:59 Dose: 40 mg Saccharomyces Boulardii (Florastor) 250 mg PO BID [facility] Last Admin: 01/12/18 09:00 Dose: 250 mg Trazodone HCl (Desyrel) 50 mg PO HS PRN PRN Reason: Insomnia - Labs Labs: 01/12/18 07:59 01/12/18 07:59 PT 15.0 SECONDS (9.7-12.2) H 12/17/17 22:10 INR 1.3 12/17/17 22:10 APTT 27 SECONDS (21-34) 12/17/17 22:10 - Constitutional Appears: No Acute Distress - Head Exam Head Exam: ATRAUMATIC, NORMAL INSPECTION - Eye Exam Pupil Exam: Miosis - ENT Exam ENT Exam: Mucous Membranes Moist - Respiratory Exam Respiratory Exam: Clear to Ausculation Bilateral, NORMAL BREATHING PATTERN - Cardiovascular Exam Cardiovascular Exam: REGULAR RHYTHM, RRR, +S1, +S2 - GI/Abdominal Exam GI & Abdominal Exam: Soft, Normal Bowel Sounds. absent: Tenderness - Neurological Exam Neurological Exam: Awake. absent: Alert, Oriented x3 - Psychiatric Exam Psychiatric exam: Flat Affect Assessment and Plan - Assessment and Plan (Free Text) Assessment: Change in Mental Status: CT of head w/o contrast: No acute intracranial abnormality. - heparin SC was restarted - ABG: normal - Lactate 2.4 (high) - Lactic Acid: 2.1 (normal) - Ammonia: <9 (low) - UA: Negative - UDS: Negative - Alcohol: 263 (positive) - Folic Acid 1mg - Thiamine IV currently not available - EKG NSR - Trop: negative - f/u repeat blood culture New onset hypotension - 1L Bolus - N/S @130cc/hr
[2018-01-12] MEDS ORDERED: Sodium Chloride 0.9% 1,000 ML IV SCH (22:15)
[2018-01-12 22:43] LABS: URINE BILIRUBIN NEGATIVE (NEGATIVE); URINE BLOOD NEGATIVE (NEGATIVE); URINE CLARITY Clear (Clear); URINE COLOR Colorless (YELLOW); URINE GLUCOSE (UA) NORMAL (Normal); URINE LEUKOCYTE ESTERASE NEG Leu/uL (Negative); URINE PROTEIN NEGATIVE (NEGATIVE); URINE UROBILINOGEN NORMAL mg/dL (0.2-1.0)
[2018-01-12] MEDS: (Novolin N) Insulin Human Isophane (NPH) 100 u/ml 10 ml vial SC SCH (22:43)
[2018-01-12 23:03] LABS: BARBITURATES, UR NEGATIVE (NEGATIVE); BENZODIAZEPINES, UR NEGATIVE (NEGATIVE); OPIATES, UR NEGATIVE (NEGATIVE); PHENCYCLIDINE, UR NEGATIVE (NEGATIVE)
[2018-01-12 23:38] LABS: ABG ALLEN TEST POS; ARTERIAL BLOOD GAS HCO3 20.4 mmol/L (21-28); ARTERIAL BLOOD GAS O2 SAT 99.6 % (95-98); ARTERIAL BLOOD GAS PCO2 33 mm/Hg (35-45); ARTERIAL BLOOD GAS PH 7.36 (7.35-7.45); ARTERIAL BLOOD GAS PO2 119 mm/Hg (80-100); ARTERIAL BLOOD GAS TCO2 19.6 mmol/L (22-28)
[2018-01-12] MEDS ORDERED: Thiamine 100 mg/ml Inj IV ONE (23:53)
[2018-01-13 00:29] VITALS: RESP 20
[2018-01-13 00:46] LABS: BASO # 0.1 K/uL (0.0-0.2); EOS # 0.7 K/uL (0.0-0.7); EOS % 10.6 % (0.0-4.0); LYMPH # 2.4 K/uL (1.0-4.3); MEAN CELL VOLUME 97.6 fL (80.0-94.0); MEAN CORPUSCULAR HEMOGLOBIN 33.3 pg (27.0-31.0); MEAN CORPUSCULAR HGB CONC 34.1 g/dL (33.0-37.0); MEAN PLATELET VOLUME 7.6 fL (7.2-11.7); MONO # 0.5 K/uL (0.0-0.8); MONO % 7.7 % (0.0-10.0); NEUT # 3.1 K/uL (1.8-7.0); NEUT % 45.7 % (50.0-75.0); RBC 2.7 Mil/uL (4.40-5.90); RED CELL DISTRIBUTION WIDTH 15.4 % (11.5-14.5); WHITE BLOOD COUNT 6.8 K/uL (4.8-10.8)
[2018-01-13] MEDS ORDERED: Sodium Chloride 0.9% 1,000 ML IV SCH (00:56)
[2018-01-13 01:39] LABS: ALB/GLOB RATIO 0.9 (1.0-2.1); ALT/SGPT 22 U/L (21-72); AST/SGOT 22 U/L (17-59); BLOOD UREA NITROGEN 23 mg/dL (9-20); CALCIUM 8.6 mg/dl (8.6-10.4); GFR AFRICAN-AMERICAN > 60; GFR NON-AFRICAN AMERICAN > 60
[2018-01-13] MEDS: Piperacill/Tazo 3.375gm in Dex 3.375 GM/50 ML BAG IVPB SCH ×2 (05:00→14:23)
[2018-01-13 06:16] LABS: BASO # 0.1 K/uL (0.0-0.2); BASO % 1.1 % (0.0-2.0); EOS # 0.6 K/uL (0.0-0.7); EOS % 9.9 % (0.0-4.0); HEMOGLOBIN 9.1 g/dL (12.0-18.0); LYMPH % 34.4 % (20.0-40.0); MEAN CELL VOLUME 97.1 fL (80.0-94.0); MEAN CORPUSCULAR HEMOGLOBIN 33.2 pg (27.0-31.0); MEAN CORPUSCULAR HGB CONC 34.2 g/dL (33.0-37.0); MEAN PLATELET VOLUME 7.5 fL (7.2-11.7); MONO # 0.4 K/uL (0.0-0.8); NEUT # 2.8 K/uL (1.8-7.0); NEUT % 47.6 % (50.0-75.0); RBC 2.75 Mil/uL (4.40-5.90); RED CELL DISTRIBUTION WIDTH 14.9 % (11.5-14.5); WHITE BLOOD COUNT 5.8 K/uL (4.8-10.8)
[2018-01-13 07:22] VITALS: O2SAT 97
[2018-01-13 07:24] VITALS: BP 101/61
[2018-01-13 07:31] LABS: ALB/GLOB RATIO 0.8 (1.0-2.1); ALT/SGPT 24 U/L (21-72); AST/SGOT 27 U/L (17-59); BLOOD UREA NITROGEN 21 mg/dL (9-20); CALCIUM 8.7 mg/dl (8.6-10.4); GFR AFRICAN-AMERICAN > 60; GFR NON-AFRICAN AMERICAN > 60
--- NOTE | 2018-01-13 08:16 | CT ---
PROCEDURE: CT HEAD WITHOUT CONTRAST. HISTORY: change in mental status COMPARISON: None available. TECHNIQUE: Axial computed tomography images were obtained through the head/brain without intravenous contrast. Radiation dose: Total exam DLP = 814 mGy-cm. This CT exam was performed using one or more of the following dose reduction techniques: Automated exposure control, adjustment of the mA and/or kV according to patient size, and/or use of iterative reconstruction technique. FINDINGS: HEMORRHAGE: No intracranial hemorrhage. BRAIN: Mild atrophy. Dilated perivascular spaces versus chronic lacunar infarcts about the basal ganglia ; left greater than right. Scattered focal lucencies in the subcortical and periventricular white matter suggestive for chronic microvascular ischemic change. VENTRICLES: Unremarkable. No hydrocephalus. CALVARIUM: Unremarkable. PARANASAL SINUSES: Unremarkable as visualized. No significant inflammatory changes. MASTOID AIR CELLS: Unremarkable as visualized. No inflammatory changes. OTHER FINDINGS: Small soft tissue nodule along the frontal scalp, nonspecific. Mild atherosclerotic disease the intracranial arteries. Mild mucosal thickening of the paranasal sinuses. IMPRESSION: No acute intracranial abnormality. Chronic microvascular ischemic change. Mild atrophy. Small soft tissue nodule along the frontal scalp, nonspecific. If focal neurologic deficit persists, consider MRI. These findings were preliminarily reported at 10:56 p.m. on 01/12/[address] Kwabena Delvalle from [facility].
[2018-01-13 08:29] VITALS: PULSE 89; TEMP 97.7
[2018-01-13] MEDS: (Novolin R) Insulin Human Regular 100 units/ml vial SC SCH ×4 (08:30→12:08)
[2018-01-13] MEDS: Pantoprazole 40 mg EC Tab PO SCH (10:42)
[2018-01-13] MEDS: Saccharomyces Boulardi 250 mg Cap PO SCH (10:42)
--- NOTE | 2018-01-13 12:58 | CP.PCM.DIS ---
Provider - Provider Date of Admission: 12/17/17 22:08 Attending physician: Giuliano Taylor DO Consults: Dr. Jayesh Brooks Podiatry: Dr. Hernandez Time Spent in preparation of Discharge (in minutes): 35 Hospital Course - Lab Results Lab Results: Micro Results 12/17/17 21:30 Blood Blood Culture - Final NO GROWTH AFTER 5 DAYS 12/17/17 21:30 Blood Gram Stain - Final TEST NOT PERFORMED 12/17/17 21:10 Blood Blood Culture - Final NO GROWTH AFTER 5 DAYS 12/17/17 21:10 Blood Gram Stain - Final TEST NOT PERFORMED 12/18/17 Unknown Foot - Left Gram Stain - Final 12/18/17 Unknown Foot - Left Wound Culture - Final Proteus Mirabilis Group G Streptococcus 12/18/17 Unknown Foot - Left Gram Stain - Final 12/18/17 Unknown Foot - Left Wound Culture - Final Proteus Mirabilis Group G Streptococcus 12/18/17 00:20 Foot - Left Gram Stain - Final 12/18/17 00:20 Foot - Left Wound Culture - Final Proteus Mirabilis Group G Streptococcus Most Recent Lab Values WBC 5.8 K/uL (4.8-10.8) 01/13/18 06:02 RBC 2.75 Mil/uL (4.40-5.90) L 01/13/18 06:02 Hgb 9.1 g/dL (12.0-18.0) L 01/13/18 06:02 Hct 26.7 % (35.0-51.0) L 01/13/18 06:02 MCV 97.1 fL (80.0-94.0) H 01/13/18 06:02 MCH 33.2 pg (27.0-31.0) H 01/13/18 06:02 MCHC 34.2 g/dL (33.0-37.0) 01/13/18 06:02 RDW 14.9 % (11.5-14.5) H 01/13/18 06:02 Plt Count 306 K/uL (130-400) 01/13/18 06:02 MPV 7.5 fL (7.2-11.7) 01/13/18 06:02 Neut % (Auto) 47.6 % (50.0-75.0) L 01/13/18 06:02 Lymph % (Auto) 34.4 % (20.0-40.0) 01/13/18 06:02 Juncos % (Auto) 7.0 % (0.0-10.0) 01/13/18 06:02 Eos % (Auto) 9.9 % (0.0-4.0) H 01/13/18 06:02 Baso % (Auto) 1.1 % (0.0-2.0) 01/13/18 06:02 Neut # (Auto) 2.8 K/uL (1.8-7.0) 01/13/18 06:02 Lymph # (Auto) 2.0 K/uL (1.0-4.3) 01/13/18 06:02 Juncos # (Auto) 0.4 K/uL (0.0-0.8) 01/13/18 06:02 Eos # (Auto) 0.6 K/uL (0.0-0.7) 01/13/18 06:02 Baso # (Auto) 0.1 K/uL (0.0-0.2) 01/13/18 06:02 Neutrophils % (Manual) 85 % (50-75) H 12/18/17 06:50 Lymphocytes % (Manual) 9 % (20-40) L 12/18/17 06:50 Monocytes % (Manual) 5 % (0-10) 12/18/17 06:50 Eosinophils % (Manual) 1 % (0-4) 12/18/17 06:50 Differential Comment 12/21/17 08:18 Platelet Estimate Normal (NORMAL) 12/18/17 06:50 Hypochromasia (manual) Slight 12/18/17 06:50 Anisocytosis (manual) Slight 12/17/17 21:09 PT 15.0 SECONDS (9.7-12.2) H 12/17/17 22:10 INR 1.3 12/17/17 22:10 APTT 27 SECONDS (21-34) 12/17/17 22:10 Puncture Site Rr 01/12/18 23:34 pCO2 33 mm/Hg (35-45) L 01/12/18 23:34 pO2 119 mm/Hg (80-100) H 01/12/18 23:34 HCO3 20.4 mmol/L (21-28) L 01/12/18 23:34 ABG pH 7.36 (7.35-7.45) 01/12/18 23:34 ABG Total CO2 19.6 mmol/L (22-28) L 01/12/18 23:34 ABG O2 Saturation 99.6 % (95-98) H 01/12/18 23:34 ABG Base Excess -5.9 mmol/L (-2.0-3.0) L 01/12/18 23:34 Fritz Test Pos 01/12/18 23:34 ABG Potassium 3.4 mmol/L (3.6-5.2) L 01/12/18 23:34 VBG pH 7.45 (7.32-7.43) H 12/17/17 22:00 VBG pCO2 31 mmHg (40-60) L 12/17/17 22:00 VBG HCO3 23.2 mmol/L 12/17/17 22:00 VBG Total CO2 22.5 mmol/L (22-28) 12/17/17 22:00 VBG O2 Sat (Calc) 86.8 % (40-65) H 12/17/17 22:00 VBG Base Excess -1.6 mmol/L (0.0-2.0) L 12/17/17 22:00 VBG Potassium 4.0 mmol/L (3.6-5.2) 12/17/17 22:00 Sodium 137.0 mmol/l (132-148) 01/12/18 23:34 Chloride 110.0 mmol/L (98-107) H 01/12/18 23:34 Glucose 194 mg/dl (75-110) H 01/12/18 23:34 Lactate 2.4 mmol/L (0.7-2.1) H 01/12/18 23:34 Liter Flow 2.0 01/12/18 23:34 Sodium 145 mmol/L (132-148) 01/13/18 06:02 Potassium 4.1 mmol/L (3.6-5.2) 01/13/18 06:02 Chloride 107 mmol/L (98-107) 01/13/18 06:02 Carbon Dioxide 19 mmol/L (22-30) L 01/13/18 06:02 Anion Gap 23 (10-20) H 04/02/18 06:02 BUN 21 mg/dL (9-20) H 01/13/18 06:02 Creatinine 0.8 mg/dL (0.8-1.5) 01/13/18 06:02 Est GFR ( Amer) > 60 01/13/18 06:02 Est GFR (Non-Af Amer) > 60 01/13/18 06:02 POC Glucose (mg/dL) 282 mg/dL (65-110) H 01/13/18 10:58 Random Glucose 181 mg/dL (75-110) H 01/13/18 06:02 Hemoglobin A1c 11.1 % (4.2-6.5) H 12/29/17 06:31 Lactic Acid 2.1 mmol/L (0.7-2.1) 01/12/18 23:53 Calcium 8.7 mg/dl (8.6-10.4) 01/13/18 06:02 Phosphorus 4.1 mg/dL (2.5-4.5) 01/13/18 06:02 Magnesium 1.6 mg/dL (1.6-2.3) 01/13/18 06:02 Total Bilirubin 0.2 mg/dL (0.2-1.3) 01/13/18 06:02 AST 27 U/L (17-59) 01/13/18 06:02 ALT 24 U/L (21-72) 01/13/18 06:02 Alkaline Phosphatase 105 U/L (38-126) 01/13/18 06:02 Ammonia < 9 umol/L (9-33) L 01/12/18 23:53 Troponin I < 0.0120 ng/mL (0.00-0.120) 01/13/18 00:40 Total Protein 6.5 g/dL (6.3-8.3) 01/13/18 06:02 Albumin 3.0 g/dL (3.5-5.0) L 01/13/18 06:02 Globulin 3.5 gm/dL (2.2-3.9) 01/13/18 06:02 Albumin/Globulin Ratio 0.8 (1.0-2.1) L 01/13/18 06:02 Triglycerides 71 mg/dL (0-149) D 12/29/17 06:31 Cholesterol 123 mg/dL (0-199) 12/29/17 06:31 LDL Cholesterol Direct 62 mg/dL (0-129) 12/29/17 06:31 HDL Cholesterol 36 mg/dL (30-70) 12/29/17 06:31 TSH 3rd Generation 3.16 mIU/L (0.46-4.68) 12/29/17 06:31 Arterial Blood Potassium 3.4 mmol/L (3.6-5.2) L 01/12/18 23:34 Venous Blood Potassium 4.0 mmol/L (3.6-5.2) 12/17/17 22:00 Urine Color Colorless (YELLOW) 01/12/18 22:38 Urine Clarity Clear (Clear) 01/12/18 22:38 Urine pH 5.0 (5.0-8.0) 01/12/18 22:38 Ur Specific Diagonal 1.010 (1.003-1.030) 01/12/18 22:38 Urine Protein Negative mg/dL (NEGATIVE) 01/12/18 22:38 Urine Glucose (UA) Normal mg/dL (Normal) 01/12/18 22:38 Urine Ketones Negative mg/dL (NEGATIVE) 01/12/18 22:38 Urine Blood Negative (NEGATIVE) 01/12/18 22:38 Urine Nitrate Negative (NEGATIVE) 01/12/18 22:38 Urine Bilirubin Negative (NEGATIVE) 01/12/18 22:38 Urine Urobilinogen Normal mg/dL (0.2-1.0) 01/12/18 22:38 Ur Leukocyte Esterase Neg Junior/uL (Negative) 01/12/18 22:38 Urine WBC (Auto) < 1 /hpf (0-5) 01/12/18 22:38 Urine RBC (Auto) < 1 /hpf (0-3) 01/12/18 22:38 Vancomycin Trough 7.5 ug/mL (5.0-10.0) 12/20/17 08:14 Urine Opiates Screen Negative (NEGATIVE) 01/12/18 22:38 Urine Methadone Screen Negative (NEGATIVE) 01/12/18 22:38 Ur Barbiturates Screen Negative (NEGATIVE) 01/12/18 22:38 Ur Phencyclidine Scrn Negative (NEGATIVE) 01/12/18 22:38 Ur Amphetamines Screen Negative (NEGATIVE) 01/12/18 22:38 U Benzodiazepines Scrn Negative (NEGATIVE) 01/12/18 22:38 U Oth Cocaine Metabols Negative (NEGATIVE) 01/12/18 22:38 U Cannabinoids Screen Negative (NEGATIVE) 01/12/18 22:38 Alcohol, Quantitative 263 mg/dl (0-10) H 01/13/18 00:40 Hepatitis A IgM Ab Negative (NEGATIVE) 12/20/17 08:14 Hep Bs Antigen Negative (NEGATIVE) 12/20/17 08:14 Hep B Core IgM Ab Negative (NEGATIVE) 12/20/17 08:14 Hepatitis C Antibody Negative (NEGATIVE) 12/20/17 08:14 HIV 1&2 Antibody Screen Negative (NEGATIVE) 12/20/17 08:14 - Hospital Course Hospital Course: HPI: Mr Cordova is a 52 year old male with a PMHx of uncontrolled DM, HTN who presented to [facility] ER because of a left foot ulceration. He states he' s had a lesion in the same area for the past 8 months (he was admitted in 2016 for similar issue). The ulceration started when he stepped on a piece of metal. He reports that he has been cleaning his ulceration with betadine and dsd alone at home daily. Patient reports that there was increase swelling and redness to his left foot for the last 3-4 days. He also noted drainage from the ulceration and describe the drainage yellow (but no blood). 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 In the past he has been told to follow up with [facility] but patient did not do so. He is not compliant with his home insulin and states he stopped taking his insulin 4 days ago as he ran out. He does not check his sugar at home. He denies nausea, fever, shortness of breath, chest pain, chills or fever. Patient was admitted and podiatry was consulted. A series of imaging was done to check for osteomyelitis, check status of the infection. X-ray left foot showed gas emphysema noted dorsum and plantar aspect of mid-foot. Patient had left foot incision, drainage, and debridement of non-viable tissue on 12/27/[address] hernandez, bedside I&D 12/18/2017. Left foot X-rays s/p bedside I&D (12/18/17) : Postsurgical changes with subcutaneous emphysema seen. Focal osteopenia in the 4th and 5th metatarsal heads may reflect underlying osteomyelitis. Left foot X-rays left tib-fib (12/18/17): Subcutaneous emphysema is seen tracking along the lateral lower extremity. Left foot X-ray (12/17/17): Extensive left forefoot subcutaneous gas and poor visualization of the 4th metatarsal head is likely related to osteomyelitis and soft tissue abscess. MRI was ordered to assess for osteomyelitis: findings consistent with osteomyelitis involving the distal portion and the head of the 4th metatarsal and also involving the proximal phalanx of the 4th toe. Suspicious for septic arthritis of the 4th metatarsophalangeal joint. Bone marrow edema and questionable small erosion noted at the head of the 3rd metatarsal bone may represent an early osteomyelitis. Mild bone marrow edema noted at the proximal phalanx of the 3rd and 5th toe likely represent reactive changes due to hyperemia. Diffuse soft tissue infection/inflammatory process at the lateral distal portion of the left foot associated with foci of air in the subcutaneous and deep soft tissue. The possibility of small abscess formation cannot be totally excluded in this noncontrast enhanced study. Soft tissue edema and diffuse myositis at the mid and distal portion of the left foot. As per podiatry note (12/20/17): Patient was informed of the MRI result with possible treatment options. Amputation of left 3rd 4th 5th rays discussed, which patient adamantly refused. During his stay, patient continued to refuse amputation. Per Dr Brooks, CTA and ultrasound of lower extremities were suggested. JASPER/PVR: Right JASPER non diagnostic due to arterial wall calcification, PVR waveforms show normal arterial perfusion to bilateral lower extremities at rest, normal toe brachial indexes left JASPER non diagnostic due to arterial wall calcification. PVR waveforms have normal arterial perfusion to bilateral lower extremities at rest normal toe brachial indexes. PICC line placed right arm on 12/23 to prepare for long term acute care registered nurse antibiotic administration. Patient had another debridement of necrotic/non-viable tissue with Dr. Hernandez, bone sample taken and sent to pathology came back positive for osteomyelitis of 1st Metatasal. Patient continued on antibiotics (zosyn at the time) with instructions to continue antibiotics until 01/31/2018. Leukocytosis: Patient had an series of leukocytosis while afebrile. Left foot wound culture:Proteus Mirabilis and Group G Strep which recent blood cultures were negative. Uncontrolled DM: Dr. Mcconnell consulted because it was difficult to control glucose during patient's stay. Patient's home medications did not control glucose levels and adjusting home medication was not working as well. Dr. Mcconnell placed the patient on Novolin R 14 u SC AC and Novolin R SC ACHS. Night time insulin of NPH 44u SC HS with Hypoglycemia protocol in place. For Prophylaxis: Patient was given Protonix 40mg PO QD, SCD and Heparin SC Physical therapy: non-weight bearing to left foot, advance per podiatry recommendations Heart healthy, diabetic diet (edited to low carbohydrate consistent diet 01/04) Diabetic aviculturist referral ordered for uncontrolled diabetes Colace 100mg PO q12h prn for constipation Of note, Patient had been found unresponsive after daughter had visited the patient 01/12. night resident was paged and saw the patient at bedside. He had constricted pupils, was not able to answer to verbal command or stimuli. Patient Had CT head ordered. No signs of bleed or stroke, patient had urine toxicology done which showed high alcohol level. Patient had alcohol in the hospital. Patient was seen and examined at bedside 01/13 and patient was alert, speaking, moving at baseline. Patient would not state how he received the alcohol but mentioned that he had a lot of things to celebrate and mentioned that his brother a few days ago and he just found out. Patient explained that it was against hospital policy to drink alcohol in the hospital. Patient states he understood and states that he was told on Saturday that he was going home. Patient was discharged with prescriptions for rocephin 2 gm QD with the last dose 01/31. Patient given prescriptions for insulin and glucometer, lancets , testing strips, and insulin syringes/needles. Discharged on: 01/13/18 with instructions to follow up with Dr. Brooks, Dr. Mcconnell, Dr. Hernandez, and Dr. Marr outpatient within one week of leaving. Patient is told to go to the infusion center every day for antibiotics. with current insulin medications NPH 44u SC QHS, Novolin R 14 u SC ACHS, glucometer, insulin needle, insulin syringes, glucose strips, glucose lancets This is a summary of patient's hospitalization, please review EMR for further detail Lacy Teague DO PGY1 - Date & Time of H&P Date of H&P: 01/13/18 Time of H&P: 14:05 Discharge Exam - Head Exam Head Exam: ATRAUMATIC, NORMAL INSPECTION Discharge Plan - Discharge Medications Prescriptions: Aspirin [Aspirin EC] 325 mg PO DAILY 30 Days tablet. Insulin Human Isophane (NPH) [Novolin N] 44 unit SC HS 30 Days unit Insulin Human Regular [Novolin R] 14 unit SC AC 30 Days unit Lisinopril [Zestril] 10 mg PO DAILY 30 Days tab - Follow Up Plan Condition: FAIR Disposition: HOME/ ROUTINE Instructions: Insulin NPH, Insulin Regular, Diabetic Foot Ulcer (DC), Osteomyelitis (DC), Ceftriaxone, Lisinopril, Diabetic Meal Planning Additional Instructions: take IV rocephin 2 gm daily with last dose on 01/31 Follow up with podiatry regularly. Call podiatry clinic to find out when and how often follow up with primary care doctor in one week take insulin as directed. check glucose regularly before each meal and at night before nighttime dose follow up with Dr. Mcconnell to readjust diabetes medications follow up with Dr. Brooks to re-evaluate status of infection Referrals: Celia Mcconnell MD [Medical Doctor] - Perez Brooks MD [Staff Provider] - [facility] [Outside]
--- NOTE | 2018-01-14 11:29 | CARD ---
APPROVED REPORT EKG Measurement Heart [id number] <Conclusion> Normal sinus rhythm Normal ECG
== END 2018-01-13 15:24 | disposition home or self-care (01) | DRG 638 ==
LOC: C.ER 19:37 → C.9E 22:08 → C.3T 23:08
PROVIDERS: ADMIT Hospitalist; ATTEND Hospitalist
PROC: 0HBLXZZ Excision of Left Lower Leg Skin, External Approach (ICD-10-PCS; 2017-12-18)
PROC: 0H9NXZZ Drainage of Left Foot Skin, External Approach (ICD-10-PCS; 2017-12-18)
PROC: 0H9LXZZ Drainage of Left Lower Leg Skin, External Approach (ICD-10-PCS; 2017-12-18)
PROC: 0HBNXZZ Excision of Left Foot Skin, External Approach (ICD-10-PCS; principal; 2017-12-18 07:30)
PROC: 02HV33Z Insertion of Infusion Device into Superior Vena Cava, Percutaneous Approach (ICD-10-PCS; 2017-12-23)
PROC: 0HBNXZZ Excision of Left Foot Skin, External Approach (ICD-10-PCS; 2017-12-27)
PROC: 0HBLXZZ Excision of Left Lower Leg Skin, External Approach (ICD-10-PCS; 2017-12-27)
PROC: 0H9NXZZ Drainage of Left Foot Skin, External Approach (ICD-10-PCS; 2017-12-27)
PROC: 0H9LXZZ Drainage of Left Lower Leg Skin, External Approach (ICD-10-PCS; 2017-12-27)
DX: E11.621 Type 2 diabetes mellitus with foot ulcer (principal); T79.7XXA Traumatic subcutaneous emphysema, initial encounter; L02.612 Cutaneous abscess of left foot; L97.429 Non-pressure chronic ulcer of left heel and midfoot with unspecified severity; M86.9 Osteomyelitis, unspecified; M00.9 Pyogenic arthritis, unspecified; E11.69 Type 2 diabetes mellitus with other specified complication; D72.829 Elevated white blood cell count, unspecified; E11.65 Type 2 diabetes mellitus with hyperglycemia; E78.5 Hyperlipidemia, unspecified; F10.10 Alcohol abuse, uncomplicated; I10 Essential (primary) hypertension; M60.9 Myositis, unspecified; M85.80 Other specified disorders of bone density and structure, unspecified site; Z79.4 Long term (current) use of insulin; Z80.0 Family history of malignant neoplasm of digestive organs; Z90.49 Acquired absence of other specified parts of digestive tract; Z91.14 Patient's other noncompliance with medication regimen; E11.40 Type 2 diabetes mellitus with diabetic neuropathy, unspecified; B96.4 Proteus (mirabilis) (morganii) as the cause of diseases classified elsewhere; B95.4 Other streptococcus as the cause of diseases classified elsewhere

== ENCOUNTER 2018-01-19 20:50 | Emergency (ER) | payer OTHER ==
[2018-01-19 20:51] VITALS: BMI 25.4
--- NOTE | 2018-01-19 23:39 | C.PDOC ---
History Of Present Illness Pt is in the ED due to alcohol intoxication. He admits to drinking a lot of alcohol tonight. Time Seen by Provider: 01/19/18 21:52 Chief Complaint (Nursing): Substance Abuse History Per: Patient History/Exam Limitations: intoxication Onset/Duration Of Symptoms: Unknown Current Symptoms Are (Timing): Still Present Suicide/Self Injury Attempted (Context): None Modifying Factor(s): Alcohol Severity: Severe Associated Symptoms: denies: Suicidal Thoughts, Suicidal Plan Additional History Per: Prior Records Past Medical History Reviewed: Historical Data, Nursing Documentation, Vital Signs Vital Signs: Last Vital Signs Temp 97 F L 01/19/18 21:09 Pulse 80 01/19/18 21:09 Resp 14 01/19/18 21:09 BP 138/86 01/19/18 21:09 Pulse Ox 98 01/19/18 23:39 - Medical History PMH: Diabetes, HTN Other PMH: Alcohol abuse Surgical History: Appendectomy, Cholecystectomy - [facility] Procedures DRAINAGE OF LEFT FOOT SKIN, EXTERNAL APPROACH (12/17/17) DRAINAGE OF LEFT LOWER LEG SKIN, EXTERNAL APPROACH (12/17/17) EXCISION OF LEFT FOOT SKIN, EXTERNAL APPROACH (12/17/17) EXCISION OF LEFT LOWER LEG SKIN, EXTERNAL APPROACH (12/17/17) INSERTION OF INFUSION DEV INTO SUP VENA CAVA, PERC APPROACH (12/17/17) OTHER SKIN & SUBQ I D (03/06/14) Family History: States: Unknown Family Hx - Social History Hx Tobacco Use: No Hx Alcohol Use: Yes Hx Substance Use: No - Immunization History Hx Tetanus Toxoid Vaccination: No Hx Influenza Vaccination: No Hx Pneumococcal Vaccination: No Review Of Systems Review Of Systems: ROS cannot be obtained secondary to pt's inabilty to answer questions. Physical Exam - Physical Exam Appears: No Acute Distress, Other (AOB, intoxicated) Skin: Normal Color, Warm, Dry Head: Atraumatic Eye(s): bilateral: PERRL Neck: Normal ROM, No Midline Cervical Tenderness, No Step Off Deformity, Supple Cardiovascular: Rhythm Regular Respiratory: Normal Breath Sounds, No Accessory Muscle Use Gastrointestinal/Abdominal: Soft Extremity: Normal ROM, Other (Chronic ulcer on left foot) Neurological/Psych: Eyes Open With Command, Other (Movin all extremities.) Gait: Unable To Assess ED Course And Treatment O2 Sat by Pulse Oximetry: 98 Pulse Ox Interpretation: Normal Disposition - Disposition Disposition Time: 00:55 Condition: STABLE - Clinical Impression Clinical Impression: Alcohol abuse Physician Patient Turnover Patient Signed Over To: Martha Rincon Handoff Comments: to reassess/dispo pt once sober.
[2018-01-20 02:07] VITALS: RESP 16; TEMP 97.6; O2SAT 99
[2018-01-20 06:01] VITALS: BP 120/70; PULSE 80
== END 2018-01-20 05:30 | disposition home or self-care (01) ==
LOC: C.ER 20:50
DX: F10.10 Alcohol abuse, uncomplicated (principal); E11.9 Type 2 diabetes mellitus without complications

== ENCOUNTER 2018-01-22 21:35 | Inpatient (IN) | payer MEDICAID, OTHER ==
[2018-01-22 21:35] VITALS: BMI 25.4
[2018-01-22] MEDS ORDERED: Sodium Chloride 0.9% 1,000 ML IV ONE ×2 (22:20→23:23)
[2018-01-22] MEDS ORDERED: (Novolin R) Insulin Human Regular 100 units/ml vial IV ONE (22:20)
[2018-01-22] MEDS ORDERED: Sodium Chloride 0.9% 1,000 ML ONE ×2 (22:37→23:32)
[2018-01-22] MEDS ORDERED: (Novolin R) Insulin Human Regular 100 units/ml vial ONE (22:38)
--- NOTE | 2018-01-22 22:40 | C.PDOC ---
History Of Present Illness 52 year old male, whose PMHx includes Diabetes, presents to the ED for evaluation of alcohol intoxication. Patient admits to drinking earlier tonight and states he was kicked out by his family. Patient denies suicidal/homicidal ideation and drug use at this time. Review of recent admission record shows patient recently admitted for diabetic foot ulcer with osteomyelitis of left 4th MT and toe. He has a PICC line and supposed to be going to the infusion center for IV Rocephin. Time Seen by Provider: 01/22/18 22:14 Chief Complaint (Nursing): Substance Abuse History Per: Patient History/Exam Limitations: intoxication Onset/Duration Of Symptoms: Hrs Current Symptoms Are (Timing): Still Present Suicide/Self Injury Attempted (Context): None Modifying Factor(s): Alcohol Associated Symptoms: denies: Suicidal Thoughts, Suicidal Plan Involuntary Hold By: None Recent travel outside of the [place]: No Additional History Per: Patient Past Medical History Reviewed: Historical Data, Nursing Documentation, Vital Signs Vital Signs: Last Vital Signs Temp Pulse 82 01/22/18 21:47 Resp 16 01/22/18 21:47 BP 124/77 01/22/18 21:47 Pulse Ox 100 01/22/18 23:04 - Medical History PMH: Diabetes, HTN Denies: Chronic Kidney Disease Surgical History: Appendectomy, Cholecystectomy - [facility] Procedures DRAINAGE OF LEFT FOOT SKIN, EXTERNAL APPROACH (12/17/17) DRAINAGE OF LEFT LOWER LEG SKIN, EXTERNAL APPROACH (12/17/17) EXCISION OF LEFT FOOT SKIN, EXTERNAL APPROACH (12/17/17) EXCISION OF LEFT LOWER LEG SKIN, EXTERNAL APPROACH (12/17/17) INSERTION OF INFUSION DEV INTO SUP VENA CAVA, PERC APPROACH (12/17/17) OTHER SKIN & SUBQ I D (03/06/14) Family History: States: Unknown Family Hx - Social History Hx Tobacco Use: No Hx Alcohol Use: Yes Hx Substance Use: No - Immunization History Hx Tetanus Toxoid Vaccination: No Hx Influenza Vaccination: No Hx Pneumococcal Vaccination: No Review Of Systems Psych: Positive for: Other (EtOH intoxication ). Negative for: Suicidal ideation Physical Exam - Physical Exam Appears: Non-toxic, No Acute Distress, Other (visibly intoxicated ) Skin: Normal Color, Warm, Dry Head: Atraumatic, Normacephalic Oral Mucosa: Moist, Other (alcohol on breath ) Neck: Supple Chest: Symmetrical, No Deformity, No Tenderness Cardiovascular: Rhythm Regular, No Murmur Respiratory: Normal Breath Sounds, No Rales, No Rhonchi, No Wheezing Extremity: Other (cast shoe noted on left foot ) Neurological/Psych: Other (awake, arousable to touch and verbal stimuli ) ED Course And Treatment - Laboratory Results Result Diagrams: 01/22/18 22:33 Lab Interpretation: Abnormal (glucose 513) O2 Sat by Pulse Oximetry: 100 (on RA) Pulse Ox Interpretation: Normal - Physician Consult Information Time Consulting Physician Contacted: 23:20 Physician Contacted: Johnathon Diaz Outcome Of Conversation: Patient to be admitted for alcohol abuse, uncontrolled diabetes and IV antibiotics for osteo of left foot. Medical Decision Making Medical Decision Making: Impression: alcohol intoxicatoin Plan: * Bloodwork * Urinalysis * reassess and disposition Prior records reviewed: patient was recently admitted in hospital for a nonhealing diabetic foot ulcer. X-ray studies show that left 4th and 5th metatarsal heads may reflect underlying osteomyelitis. Patient was discharged with PICC line in place and given instructions to follow up with infusion center to receive IV antibiotics. Progress: Bloodwork and UA ordered and reviewed. Disposition - Disposition Disposition: HOSPITALIZED Disposition Time: 23:21 Condition: FAIR - POA Present On Arrival: Poor Glycemic Control - Clinical Impression Clinical Impression: Alcohol abuse, Osteomyelitis, Uncontrolled diabetes mellitus - Scribe Statement The provider has reviewed the documentation as recorded by the Scribe (Yumiko Thomason) Provider Attestation: All medical record entries made by the Scribe were at my direction and personally dictated by me. I have reviewed the chart and agree that the record accurately reflects my personal performance of the history, physical exam, medical decision making, and the department course for this patient. I have also personally directed, reviewed, and agree with the discharge instructions and disposition.
[2018-01-22 23:01] LABS: ALBUMIN 3.7 g/dL (3.5-5.0); ALT/SGPT 10 U/L (21-72); AST/SGOT 38 U/L (17-59); BLOOD UREA NITROGEN 9 mg/dL (9-20); CALCIUM 9.2 mg/dl (8.6-10.4); GFR AFRICAN-AMERICAN > 60; GFR NON-AFRICAN AMERICAN > 60
[2018-01-22 23:16] LABS: URINE BILIRUBIN NEGATIVE (NEGATIVE); URINE BLOOD NEGATIVE (NEGATIVE); URINE CLARITY Clear (Clear); URINE COLOR Colorless (YELLOW); URINE GLUCOSE (UA) 3+ mg/dL (Normal); URINE LEUKOCYTE ESTERASE NEG Leu/uL (Negative); URINE PROTEIN 1+ mg/dL (NEGATIVE); URINE UROBILINOGEN NORMAL mg/dL (0.2-1.0)
[2018-01-22] MEDS ORDERED: Piperacillin/Tazobact 3.375 gm 100 ML IV STA (23:16)
[2018-01-22 23:29] LABS: BARBITURATES, UR NEGATIVE (NEGATIVE); BENZODIAZEPINES, UR NEGATIVE (NEGATIVE); OPIATES, UR NEGATIVE (NEGATIVE); PHENCYCLIDINE, UR NEGATIVE (NEGATIVE)
[2018-01-22] MEDS ORDERED: Vancomycin 1 GM 1 GM/250 ML BAG IV SCH (23:30)
[2018-01-22] MEDS ORDERED: Piperacillin/Tazobact 3.375 gm 100 ML IVPB ONE (23:32)
[2018-01-22] MEDS ORDERED: Vancomycin 1 gm/NS 200 ml 1 GM/200 ML BAG IVPB ONE (23:45)
[2018-01-22 23:50] LABS: BASO # 0.1 K/uL (0.0-0.2); EOS # 0.6 K/uL (0.0-0.7); EOS % 8.2 % (0.0-4.0); HEMOGLOBIN 10.3 g/dL (12.0-18.0); LYMPH # 2.1 K/uL (1.0-4.3); LYMPH % 29.5 % (20.0-40.0); MEAN CELL VOLUME 97.1 fL (80.0-94.0); MEAN CORPUSCULAR HEMOGLOBIN 33.6 pg (27.0-31.0); MEAN CORPUSCULAR HGB CONC 34.6 g/dL (33.0-37.0); MEAN PLATELET VOLUME 7.9 fL (7.2-11.7); MONO # 0.7 K/uL (0.0-0.8); MONO % 9.2 % (0.0-10.0); NEUT # 3.7 K/uL (1.8-7.0); NEUT % 52.1 % (50.0-75.0); RBC 3.06 Mil/uL (4.40-5.90); RED CELL DISTRIBUTION WIDTH 15.5 % (11.5-14.5); WHITE BLOOD COUNT 7.2 K/uL (4.8-10.8)
--- NOTE | 2018-01-22 23:52 | CP.PCM.HP ---
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 Patient reports that he was drinking right before coming to the ED, stated that he only had 1 beer today. Patient also complains of left foot pain which has been going on for "a long time". He was recently discharged from [facility] for osteomyelitis of left foot and was setup for outpatient IV antibiotic transfusion. When asked about his blood glucose control, he states he has not been taking his insulin or checking his sugar regularly. Patient was intoxicated and unable to answer further questions. PMD: Dr. Marr PMHx: hypertension, uncontrolled diabetes, and osteomyelitis PSHx: Cholecystectomy 2009 Allergy: NKDA Social Hx: Social alcohol comsumption. Denies tobacco or drug use Family Hx: both parents with diabetes Present on Admission - Present on Admission Any Indicators Present on Admission: Yes History of Uncontrolled Diabetes: Yes Review of Systems - Review of Systems Systems not reviewed;Unavailable: Intoxicated - Constitutional Constitutional: As Per HPI, Fatigue. absent: Fever - EENT Eyes: As Per HPI. absent: Blind Spots Ears: As Per HPI Nose/Mouth/Throat: As Per HPI. absent: Epistaxis - Cardiovascular Cardiovascular: As Per HPI. absent: Chest Pain, Dyspnea - Respiratory Respiratory: As Per HPI. absent: Dyspnea - Gastrointestinal Gastrointestinal: As Per HPI. absent: Abdominal Pain, Vomiting - Genitourinary Genitourinary: As Per HPI. absent: Dysuria, Hematuria - Reproductive: Male Reproductive:Male: As Per HPI - Musculoskeletal Musculoskeletal: As Per HPI. absent: Atrophy, Deformity Additional comments: left foot pain - Integumentary Integumentary: As Per HPI. absent: Alopecia, Erythema - Neurological Neurological: As Per HPI. absent: Confusion, Headaches - Psychiatric Psychiatric: As Per HPI - Endocrine Endocrine: As Per HPI - Hematologic/Lymphatic Hematologic: As Per HPI Past Patient History - Infectious Disease Hx of Infectious Diseases: None - Past Medical History & Family History Past Medical History?: Yes - Past Social History Smoking Status: Never Smoked - CARDIAC Hx Hypertension: Yes - PULMONARY Hx Respiratory Disorders: No - NEUROLOGICAL Hx Neurological Disorder: No - HEENT Hx HEENT Problems: No - RENAL Hx Chronic Kidney Disease: No - ENDOCRINE/METABOLIC Hx Endocrine Disorders: Yes Hx Diabetes Mellitus Type 2: Yes - HEMATOLOGICAL/ONCOLOGICAL Hx Blood Disorders: No Hx Blood Transfusions: No Hx Blood Transfusion Reaction: No - INTEGUMENTARY Hx Dermatological Problems: Yes Hx Cellulitis: Yes (OSTEOMYELITIS LEFT FOOT) - MUSCULOSKELETAL/RHEUMATOLOGICAL Hx Musculoskeletal Disorders: No Hx Falls: No - GASTROINTESTINAL Hx Gastrointestinal Disorders: No - GENITOURINARY/GYNECOLOGICAL Hx Genitourinary Disorders: No - PSYCHIATRIC Hx Substance Use: No - SURGICAL HISTORY Hx Appendectomy: Yes Hx Cholecystectomy: Yes - ANESTHESIA Hx Anesthesia: Yes Hx Anesthesia Reactions: No Hx Malignant Hyperthermia: No Meds Allergies/Adverse Reactions: Allergies Allergy/AdvReac Type Severity Reaction Status Date / Time No Known Allergies Allergy Verified 01/22/18 21:57 Physical Exam - Constitutional Appears: No Acute Distress, Unkempt - Head Exam Head Exam: ATRAUMATIC, NORMOCEPHALIC - Eye Exam Eye Exam: EOMI, Normal appearance - ENT Exam ENT Exam: Mucous Membranes Moist Additional comments: alcoholic breath - Neck Exam Neck exam: Positive for: Normal Inspection - Respiratory Exam Respiratory Exam: Clear to Auscultation Bilateral, NORMAL BREATHING PATTERN. absent: Respiratory Distress - Cardiovascular Exam Cardiovascular Exam: REGULAR RHYTHM, +S1, +S2. absent: Systolic Murmur - GI/Abdominal Exam GI & Abdominal Exam: Normal Bowel Sounds, Soft. absent: Tenderness - Extremities Exam Extremities exam: Negative for: normal inspection Additional comments: Left foot dressing had dried betadine. No active bleeding appreciated bilaterl sensory intact, palpable pulses 2/2 PICC line at right arm - Neurological Exam Neurological exam: Alert, Oriented x3 - Psychiatric Exam Psychiatric exam: Normal Affect, Normal Mood - Skin Skin Exam: Dry, Warm Results - Vital Signs Recent Vital Signs: Last Vital Signs Temp Pulse 82 01/22/18 21:47 Resp 16 01/22/18 21:47 BP 124/77 01/22/18 21:47 Pulse Ox 100 01/22/18 23:22 - Labs Result Diagrams: 01/22/18 23:47 01/22/18 22:33 Labs: Laboratory Results - last 24 hr 01/22/18 01/22/18 01/22/18 22:09 22:33 22:59 Sodium 138 Potassium 4.6 Chloride 100 Carbon Dioxide 21 L Anion Gap 22 H BUN 9 Creatinine 0.6 L Est GFR ( Amer) > 60 Est GFR (Non-Af Amer) > 60 POC Glucose (mg/dL) 405 H* Random Glucose 513 H* D Lactic Acid 2.5 H Calcium 9.2 Total Bilirubin 0.8 AST 38 ALT 10 L D Alkaline Phosphatase 87 Total Protein 7.4 Albumin 3.7 Globulin 3.8 Albumin/Globulin Ratio 1.0 Urine Color Urine Clarity Urine pH Ur Specific [place] Urine Protein Urine Glucose (UA) Urine Ketones Urine Blood Urine Nitrate Urine Bilirubin Urine Urobilinogen Ur Leukocyte Esterase Urine WBC (Auto) Urine RBC (Auto) Urine Opiates Screen Urine Methadone Screen Ur Barbiturates Screen Ur Phencyclidine Scrn Ur Amphetamines Screen U Benzodiazepines Scrn U Oth Cocaine Metabols U Cannabinoids Screen Alcohol, Quantitative 327 H 01/22/18 01/22/18 23:10 23:10 Sodium Potassium Chloride Carbon Dioxide Anion Gap BUN Creatinine Est GFR ( Amer) Est GFR (Non-Af Amer) POC Glucose (mg/dL) Random Glucose Lactic Acid Calcium Total Bilirubin AST ALT Alkaline Phosphatase Total Protein Albumin Globulin Albumin/Globulin Ratio Urine Color Colorless Urine Clarity Clear Urine pH 5.0 Ur Specific [place] 1.011 Urine Protein 1+ H Urine Glucose (UA) 3+ H Urine Ketones Negative Urine Blood Negative Urine Nitrate Negative Urine Bilirubin Negative Urine Urobilinogen Normal Ur Leukocyte Esterase Neg Urine WBC (Auto) < 1 Urine RBC (Auto) < 1 Urine Opiates Screen Negative Urine Methadone Screen Negative Ur Barbiturates Screen Negative Ur Phencyclidine Scrn Negative Ur Amphetamines Screen Negative U Benzodiazepines Scrn Negative U Oth Cocaine Metabols Negative U Cannabinoids Screen Negative Alcohol, Quantitative Assessment & Plan - Assessment and Plan (Free Text) Assessment: Alcohol intoxication -UDS alcohol 327 -IVF NS with folate and vitamin @100ml -Ativan 1mg IV prn Q6 -CIWA protocol -Fall precaution -Magda hugger prn for hypothermia Osteomyelitis of 4th metatarsal -Patient has been getting Rocephin 2gm IV as outpatient -Vancomycin 1gm IV -Zosyn 3.327mg IV -follow up blood culture -WBC 7.2, lactate 2.5 Uncontrolled diabetes -A1c 11.1 from 12/29/17 -Endocrinology consulted, Dr. Mcconnell help appreciated -Novolin 44u SC HS -Novolin R 14u SC AC -ISS -FS ACHS -Hypoglycemia protocol -ASA Hypertension -Hold lisinopril due to hypotension Prophylactic measures -Pepcid -Lovenox <DiazJohnathon - Last Filed: 01/23/18 06:09> Results - Vital Signs Recent Vital Signs: Last Vital Signs Temp 97.9 F 01/23/18 05:05 Pulse 89 01/23/18 05:05 Resp 20 01/23/18 05:05 BP 96/54 L 01/23/18 05:05 Pulse Ox 96 01/23/18 05:05 - Labs Result Diagrams: 01/23/18 05:34 01/22/18 22:33 Labs: Laboratory Results - last 24 hr 01/22/18 01/22/18 01/22/18 22:09 22:33 22:59 WBC RBC Hgb Hct MCV MCH MCHC RDW Plt Count MPV Neut % (Auto) Lymph % (Auto) [place] % (Auto) Eos % (Auto) Baso % (Auto) Neut # (Auto) Lymph # (Auto) [place] # (Auto) Eos # (Auto) Baso # (Auto) Sodium 138 Potassium 4.6 Chloride 100 Carbon Dioxide 21 L Anion Gap 22 H BUN 9 Creatinine 0.6 L Est GFR ( Amer) > 60 Est GFR (Non-Af Amer) > 60 POC Glucose (mg/dL) 405 H* Random Glucose 513 H* D Lactic Acid 2.5 H Calcium 9.2 Total Bilirubin 0.8 AST 38 ALT 10 L D Alkaline Phosphatase 87 Total Protein 7.4 Albumin 3.7 Globulin 3.8 Albumin/Globulin Ratio 1.0 Urine Color Urine Clarity Urine pH Ur Specific [place] Urine Protein Urine Glucose (UA) Urine Ketones Urine Blood Urine Nitrate Urine Bilirubin Urine Urobilinogen Ur Leukocyte Esterase Urine WBC (Auto) Urine RBC (Auto) Urine Opiates Screen Urine Methadone Screen Ur Barbiturates Screen Ur Phencyclidine Scrn Ur Amphetamines Screen U Benzodiazepines Scrn U Oth Cocaine Metabols U Cannabinoids Screen Alcohol, Quantitative 327 H 01/22/18 01/22/18 01/22/18 23:10 23:10 23:47 WBC 7.2 RBC 3.06 L Hgb 10.3 L Hct 29.7 L MCV 97.1 H MCH 33.6 H MCHC 34.6 RDW 15.5 H Plt Count 240 MPV 7.9 Neut % (Auto) 52.1 Lymph % (Auto) 29.5 [place] % (Auto) 9.2 Eos % (Auto) 8.2 H Baso % (Auto) 1.0 Neut # (Auto) 3.7 Lymph # (Auto) 2.1 [place] # (Auto) 0.7 Eos # (Auto) 0.6 Baso # (Auto) 0.1 Sodium Potassium Chloride Carbon Dioxide Anion Gap BUN Creatinine Est GFR ( Amer) Est GFR (Non-Af Amer) POC Glucose (mg/dL) Random Glucose Lactic Acid Calcium Total Bilirubin AST ALT Alkaline Phosphatase Total Protein Albumin Globulin Albumin/Globulin Ratio Urine Color Colorless Urine Clarity Clear Urine pH 5.0 Ur Specific [place] 1.011 Urine Protein 1+ H Urine Glucose (UA) 3+ H Urine Ketones Negative Urine Blood Negative Urine Nitrate Negative Urine Bilirubin Negative Urine Urobilinogen Normal Ur Leukocyte Esterase Neg Urine WBC (Auto) < 1 Urine RBC (Auto) < 1 Urine Opiates Screen Negative Urine Methadone Screen Negative Ur Barbiturates Screen Negative Ur Phencyclidine Scrn Negative Ur Amphetamines Screen Negative U Benzodiazepines Scrn Negative U Oth Cocaine Metabols Negative U Cannabinoids Screen Negative Alcohol, Quantitative 01/23/18 01/23/18 01/23/18 00:49 03:28 05:34 WBC 4.6 L RBC 2.76 L Hgb 9.3 L Hct 27.2 L MCV 98.2 H MCH 33.6 H MCHC 34.2 RDW 15.6 H Plt Count 224 MPV 8.0 Neut % (Auto) 51.0 Lymph % (Auto) 31.2 [place] % (Auto) 7.5 Eos % (Auto) 9.2 H Baso % (Auto) 1.1 Neut # (Auto) 2.3 Lymph # (Auto) 1.4 [place] # (Auto) 0.3 Eos # (Auto) 0.4 Baso # (Auto) 0.1 Sodium Potassium Chloride Carbon Dioxide Anion Gap BUN Creatinine Est GFR ( Amer) Est GFR (Non-Af Amer) POC Glucose (mg/dL) 188 H Random Glucose Lactic Acid 3.4 H Calcium Total Bilirubin AST ALT Alkaline Phosphatase Total Protein Albumin Globulin Albumin/Globulin Ratio Urine Color Urine Clarity Urine pH Ur Specific [place] Urine Protein Urine Glucose (UA) Urine Ketones Urine Blood Urine Nitrate Urine Bilirubin Urine Urobilinogen Ur Leukocyte Esterase Urine WBC (Auto) Urine RBC (Auto) Urine Opiates Screen Urine Methadone Screen Ur Barbiturates Screen Ur Phencyclidine Scrn Ur Amphetamines Screen U Benzodiazepines Scrn U Oth Cocaine Metabols U Cannabinoids Screen Alcohol, Quantitative Assessment & Plan - Date & Time Date: 01/23/18 (I have seen and examined the patient. I agree with the findings and plan of care as documented by Dr. Noel. Patient with osteomyelitis for which he was supposed to be receiving outpatient infusions of antibiotics. Unknown if patient was compliant. Vanco and Zosyn for now. Check Lactate. Monitor vitals closely. Upgrade to tele or ICU depending upon response to fluid boluses. Check wound and blood cultures. Uncontrolled diabetes. Better blood sugar control needed to improve healing. Consult to Dr. Mcconnell. SHANNAN and sandy. [facility] protocol for alcohol abuse. Monitor for acute changes.) Time: 06:07 Attending/Attestation - Attestation I have personally seen and examined this patient.: Yes I have fully participated in the care of the patient.: Yes I have reviewed all pertinent clinical information: Yes
[2018-01-23] MEDS ORDERED: Glucagon Recombinant 1 mg Inj IM PRN (00:33)
[2018-01-23] MEDS ORDERED: Dextrose 50% SYRINGE Inj (50 ml) IVP PRN (00:33)
[2018-01-23] MEDS ORDERED: Multivitamin (MVI) 10 ML, Folic Acid 1 MG in Sodium Chloride 0.9% 1,000 ML IV ONE (01:40)
[2018-01-23] MEDS ORDERED: Sodium Chloride 0.9% 1,000 ML IV ONE (01:47)
[2018-01-23] MEDS ORDERED: Sodium Chloride 0.9% 1,000 ML ONE (01:52)
[2018-01-23] MEDS ORDERED: Vancomycin 1 gm/NS 200 ml 1 GM/200 ML BAG IVPB SCH ×3 (02:00→13:00)
[2018-01-23] MEDS ORDERED: Piperacillin/Tazobact 3.375 GM in Sodium Chloride 100 ML IVPB SCH (02:00)
[2018-01-23] MEDS ORDERED: Piperacill/Tazo 3.375gm in Dex 3.375 GM/50 ML BAG IVPB SCH (02:30)
[2018-01-23] MEDS ORDERED: Sodium Chloride 0.9% 500 ML IV ONE (04:02)
[2018-01-23 05:43] LABS: BASO # 0.1 K/uL (0.0-0.2); BASO % 1.1 % (0.0-2.0); EOS # 0.4 K/uL (0.0-0.7); EOS % 9.2 % (0.0-4.0); HEMOGLOBIN 9.3 g/dL (12.0-18.0); LYMPH # 1.4 K/uL (1.0-4.3); LYMPH % 31.2 % (20.0-40.0); MEAN CELL VOLUME 98.2 fL (80.0-94.0); MEAN CORPUSCULAR HEMOGLOBIN 33.6 pg (27.0-31.0); MEAN CORPUSCULAR HGB CONC 34.2 g/dL (33.0-37.0); MONO # 0.3 K/uL (0.0-0.8); MONO % 7.5 % (0.0-10.0); NEUT # 2.3 K/uL (1.8-7.0); RBC 2.76 Mil/uL (4.40-5.90); RED CELL DISTRIBUTION WIDTH 15.6 % (11.5-14.5); WHITE BLOOD COUNT 4.6 K/uL (4.8-10.8)
[2018-01-23 06:30] LABS: ALB/GLOB RATIO 0.9 (1.0-2.1); ALBUMIN 2.9 g/dL (3.5-5.0); ALT/SGPT 14 U/L (21-72); AST/SGOT 28 U/L (17-59); BLOOD UREA NITROGEN 8 mg/dL (9-20); CALCIUM 8.2 mg/dl (8.6-10.4); GFR AFRICAN-AMERICAN > 60; GFR NON-AFRICAN AMERICAN > 60
[2018-01-23] MEDS: Piperacillin/Tazobact 3.375 GM in Sodium Chloride 0.9% 100 ML IVPB SCH ×3 (06:53→12:45)
--- NOTE | 2018-01-23 06:56 | CP.PCM.CON ---
History of Present Illness - History of Present Illness History of Present Illness: 52 M with h/o noncompliance with insulin, recent early december foot infection, abscess, OM of 3,4 metatarsal head, phalanges, s/p debridement as pt refused amputation, on dced on iv abx Rocephin 2g daily, which he comes to clinic to daily get it. Patient came to hospital to sleep post alcohol intoxication, he was noticed to be hypothermic, when started to reworm he became hypotensive and elevated lactate. Patient was given 2 lit of bolus fluid in ER and then maintenance fluid. Patient is sleepy but easily arousable, oriented x3, in no distress, drunk and request to sleep. Patient admits being outside in cold for 3 -4 hrs, but doesn't want to talk about it, patient also admits not taking his insulins for atleast 2 days. Patient's dressing was opened and reapplied in ER, d/w nurse the suture sites clean on the dorsum and lower end of leg, but in bottom continues to have ulcer with scant drainage. Patient was tiered and refused to reopen the dressing. Patient admitted drinking but not willing to tell the amount of beers he had. PMH as above long time foot infection, with worsening in december, s/p I and D x2, OM, on abx till 01/31 rocephin 2 gm/daily, non compliant with DM, s/p picc line Allergies nkda Social alcohol consumption, denies smoking, other illicit drugs Meds metformin, rocephin, irregular insulin consumption. Review of Systems - Review of Systems All systems: reviewed and no additional remarkable complaints except (HPI) Past Patient History - Infectious Disease Hx of Infectious Diseases: None - Past Medical History & Family History Past Medical History?: Yes - Past Social History Smoking Status: Never Smoked Alcohol: > 2 Drinks/Day Drugs: Denies Home Situation {Lives}: With Family - CARDIAC Hx Hypertension: Yes - PULMONARY Hx Respiratory Disorders: No - NEUROLOGICAL Hx Neurological Disorder: No - HEENT Hx HEENT Problems: No - RENAL Hx Chronic Kidney Disease: No - ENDOCRINE/METABOLIC Hx Endocrine Disorders: Yes Hx Diabetes Mellitus Type 2: Yes - HEMATOLOGICAL/ONCOLOGICAL Hx Blood Disorders: No Hx Blood Transfusions: No Hx Blood Transfusion Reaction: No - INTEGUMENTARY Hx Dermatological Problems: Yes Hx Cellulitis: Yes (OSTEOMYELITIS LEFT FOOT) - MUSCULOSKELETAL/RHEUMATOLOGICAL Hx Musculoskeletal Disorders: No Hx Falls: No - GASTROINTESTINAL Hx Gastrointestinal Disorders: No - GENITOURINARY/GYNECOLOGICAL Hx Genitourinary Disorders: No - PSYCHIATRIC Hx Substance Use: No - SURGICAL HISTORY Hx Appendectomy: Yes Hx Cholecystectomy: Yes - ANESTHESIA Hx Anesthesia: Yes Hx Anesthesia Reactions: No Hx Malignant Hyperthermia: No Meds Allergies/Adverse Reactions: Allergies Allergy/AdvReac Type Severity Reaction Status Date / Time No Known Allergies Allergy Verified 01/22/18 21:57 - Medications Medications: Current Medications Aspirin (Ecotrin) 325 mg PO DAILY KAUSHIK Dextrose (Dextrose 50% Inj) 0 ml IVP .STAT PRN; Protocol PRN Reason: Hypoglycemia Protocol Dextrose (Glutose 15) 0 gm PO .ONCE PRN; Protocol PRN Reason: Hypoglycemia Protocol Enoxaparin Sodium (Lovenox) 40 mg SC DAILY KAUSHIK Famotidine (Pepcid) 20 mg PO DAILY KAUSHIK Glucagon (Glucagen Diagnostic Kit) 0 mg IM .STAT PRN; Protocol PRN Reason: Hypoglycemia Protocol Dextrose (Dextrose 5% In Water 1000 Ml) 1,000 mls @ 0 mls/hr IV .Q0M PRN; Protocol; Per Protocol PRN Reason: Hypoglycemia Protocol Multivitamins/Vitamin C 10 ml/Folic Acid 1 mg/ Sodium Chloride 1,010.2 mls @ 100 mls/hr IV .Q10H7M ONE Stop: 01/23/18 11:46 Last Admin: 01/23/18 02:31 Dose: 100 mls/hr Piperacillin Sod/Tazobactam (Sod 3.375 gm/ Sodium Chloride) 100 mls @ 100 mls/ hr IVPB Q6H KAUSHIK PRN Reason: Protocol Vancomycin/Sodium Chloride (Vancomycin 1 Gm/Ns 200 Ml) 1 gm in 200 mls @ 133 mls/hr IVPB Q12H KAUSHIK PRN Reason: Protocol Stop: 01/28/18 13:01 Insulin Human NPH (Novolin N) 44 unit SC HS KAUSHIK Insulin Human Regular (Novolin R) 14 unit SC AC KAUSHIK Insulin Human Regular (Novolin R) 0 unit SC ACHS KAUSHIK PRN Reason: Protocol Lisinopril (Zestril) 10 mg PO DAILY KAUSHIK Lorazepam (Ativan) 1 mg IVP Q6H PRN PRN Reason: Symptoms of alcohol withdrawl Multivitamins (Hexavitamin) 1 tab PO DAILY KAUSHIK Physical Exam - Additional Findings Additional findings: * HEENT SLAVA * Neck Supple * Chest Clear * CVS Regular, no gallop or rub * PA soft, nt bs present * Ext edema in left foot, patient refused to open the dressing once it was changed in ER * [employer] sleepy, but arousable, not confused * Skin flushed * BP 96/60, temp 97F P 90/min RR 20/min Results - Vital Signs Recent Vital Signs: Last Vital Signs Temp 97.9 F 01/23/18 05:05 Pulse 89 01/23/18 05:05 Resp 20 01/23/18 05:05 BP 96/54 L 01/23/18 05:05 Pulse Ox 96 01/23/18 05:05 - Labs Result Diagrams: 01/23/18 05:34 01/23/18 05:34 Labs: Laboratory Results - last 24 hr 01/22/18 01/22/18 01/22/18 22:09 22:33 22:59 WBC RBC Hgb Hct MCV MCH MCHC RDW Plt Count MPV Neut % (Auto) Lymph % (Auto) [place] % (Auto) Eos % (Auto) Baso % (Auto) Neut # (Auto) Lymph # (Auto) [place] # (Auto) Eos # (Auto) Baso # (Auto) Sodium 138 Potassium 4.6 Chloride 100 Carbon Dioxide 21 L Anion Gap 22 H BUN 9 Creatinine 0.6 L Est GFR ( Amer) > 60 Est GFR (Non-Af Amer) > 60 POC Glucose (mg/dL) 405 H* Random Glucose 513 H* D Lactic Acid 2.5 H Calcium 9.2 Total Bilirubin 0.8 AST 38 ALT 10 L D Alkaline Phosphatase 87 Total Protein 7.4 Albumin 3.7 Globulin 3.8 Albumin/Globulin Ratio 1.0 Urine Color Urine Clarity Urine pH Ur Specific [place] Urine Protein Urine Glucose (UA) Urine Ketones Urine Blood Urine Nitrate Urine Bilirubin Urine Urobilinogen Ur Leukocyte Esterase Urine WBC (Auto) Urine RBC (Auto) Urine Opiates Screen Urine Methadone Screen Ur Barbiturates Screen Ur Phencyclidine Scrn Ur Amphetamines Screen U Benzodiazepines Scrn U Oth Cocaine Metabols U Cannabinoids Screen Alcohol, Quantitative 327 H 01/22/18 01/22/18 01/22/18 23:10 23:10 23:47 WBC 7.2 RBC 3.06 L Hgb 10.3 L Hct 29.7 L MCV 97.1 H MCH 33.6 H MCHC 34.6 RDW 15.5 H Plt Count 240 MPV 7.9 Neut % (Auto) 52.1 Lymph % (Auto) 29.5 [place] % (Auto) 9.2 Eos % (Auto) 8.2 H Baso % (Auto) 1.0 Neut # (Auto) 3.7 Lymph # (Auto) 2.1 [place] # (Auto) 0.7 Eos # (Auto) 0.6 Baso # (Auto) 0.1 Sodium Potassium Chloride Carbon Dioxide Anion Gap BUN Creatinine Est GFR ( Amer) Est GFR (Non-Af Amer) POC Glucose (mg/dL) Random Glucose Lactic Acid Calcium Total Bilirubin AST ALT Alkaline Phosphatase Total Protein Albumin Globulin Albumin/Globulin Ratio Urine Color Colorless Urine Clarity Clear Urine pH 5.0 Ur Specific [place] 1.011 Urine Protein 1+ H Urine Glucose (UA) 3+ H Urine Ketones Negative Urine Blood Negative Urine Nitrate Negative Urine Bilirubin Negative Urine Urobilinogen Normal Ur Leukocyte Esterase Neg Urine WBC (Auto) < 1 Urine RBC (Auto) < 1 Urine Opiates Screen Negative Urine Methadone Screen Negative Ur Barbiturates Screen Negative Ur Phencyclidine Scrn Negative Ur Amphetamines Screen Negative U Benzodiazepines Scrn Negative U Oth Cocaine Metabols Negative U Cannabinoids Screen Negative Alcohol, Quantitative 01/23/18 01/23/18 01/23/18 00:49 03:28 05:34 WBC 4.6 L RBC 2.76 L Hgb 9.3 L Hct 27.2 L MCV 98.2 H MCH 33.6 H MCHC 34.2 RDW 15.6 H Plt Count 224 MPV 8.0 Neut % (Auto) 51.0 Lymph % (Auto) 31.2 [place] % (Auto) 7.5 Eos % (Auto) 9.2 H Baso % (Auto) 1.1 Neut # (Auto) 2.3 Lymph # (Auto) 1.4 [place] # (Auto) 0.3 Eos # (Auto) 0.4 Baso # (Auto) 0.1 Sodium Potassium Chloride Carbon Dioxide Anion Gap BUN Creatinine Est GFR ( Amer) Est GFR (Non-Af Amer) POC Glucose (mg/dL) 188 H Random Glucose Lactic Acid 3.4 H Calcium Total Bilirubin AST ALT Alkaline Phosphatase Total Protein Albumin Globulin Albumin/Globulin Ratio Urine Color Urine Clarity Urine pH Ur Specific [place] Urine Protein Urine Glucose (UA) Urine Ketones Urine Blood Urine Nitrate Urine Bilirubin Urine Urobilinogen Ur Leukocyte Esterase Urine WBC (Auto) Urine RBC (Auto) Urine Opiates Screen Urine Methadone Screen Ur Barbiturates Screen Ur Phencyclidine Scrn Ur Amphetamines Screen U Benzodiazepines Scrn U Oth Cocaine Metabols U Cannabinoids Screen Alcohol, Quantitative 01/23/18 05:34 WBC RBC Hgb Hct MCV MCH MCHC RDW Plt Count MPV Neut % (Auto) Lymph % (Auto) [place] % (Auto) Eos % (Auto) Baso % (Auto) Neut # (Auto) Lymph # (Auto) [place] # (Auto) Eos # (Auto) Baso # (Auto) Sodium 142 Potassium 4.1 Chloride 108 H Carbon Dioxide 18 L Anion Gap 19 BUN 8 L Creatinine 0.9 Est GFR ( Amer) > 60 Est GFR (Non-Af Amer) > 60 POC Glucose (mg/dL) Random Glucose 307 H Lactic Acid Calcium 8.2 L Total Bilirubin 0.2 AST 28 ALT 14 L D Alkaline Phosphatase 84 Total Protein 6.0 L Albumin 2.9 L D Globulin 3.1 Albumin/Globulin Ratio 0.9 L Urine Color Urine Clarity Urine pH Ur Specific [place] Urine Protein Urine Glucose (UA) Urine Ketones Urine Blood Urine Nitrate Urine Bilirubin Urine Urobilinogen Ur Leukocyte Esterase Urine WBC (Auto) Urine RBC (Auto) Urine Opiates Screen Urine Methadone Screen Ur Barbiturates Screen Ur Phencyclidine Scrn Ur Amphetamines Screen U Benzodiazepines Scrn U Oth Cocaine Metabols U Cannabinoids Screen Alcohol, Quantitative Assessment & Plan - Assessment and Plan (Free Text) Assessment: * Hypothermia likely from exposure to cold 3-4 hrs, after he was intoxicated. * Hypotension during rewarming mainly form fluid shift with rapid external warming and vasodialation * Lactic acidosis as the blood peripher circulation from skin going back to system, slow clearance due to metformin and alcohol consumption * Sepsis is possible but unlikely as cause of above as patient was fine when he went for drinking, and evident cold exposure. * Alcohol intoxication * Uncontrolled DM from not being compliant with insulins Plan: * Broad spectrum abs started in ER, could be stopped once metabolic changes form hypothermia improve, bc negative * DM control with insulins * Counselled patient about being compliant with insulin or will get septic even if currently foot is improving * GI/dvt prophylaxis * Since sepsis is less likely cause and vitals improving pt could be monitored out of ICU. * Can reconsult as necessary.
[2018-01-23] MEDS ORDERED: Piperacillin/Tazobact 3.375 gm 100 ML IVPB ONE (07:04)
[2018-01-23] MEDS: (Novolin R) Insulin Human Regular 100 units/ml vial SC SCH ×4 (08:39→11:45)
--- NOTE | 2018-01-23 09:30 | CP.PCM.PN ---
Subjective - Date & Time of Evaluation Date of Evaluation: 01/23/18 Time of Evaluation: 07:00 - Subjective Subjective: Progress note for Dr. Beth Patient seen and examined at bedside and in no acute distress. Patient resting comfortably, but does not want to be bothered. He says he feels fine and has no complaints. He denies chest pain, sob, abdominal pain, nausea, vomiting, constipation, or diarrhea. Objective - Vital Signs/Intake and Output Vital Signs (last 24 hours): Temp Pulse Resp BP Pulse Ox 98.0 F 91 H 20 106/68 95 01/23/18 08:42 01/23/18 08:42 01/23/18 08:42 01/23/18 08:42 01/23/18 08:42 Intake and Output: 01/23/18 01/23/18 06:59 18:59 Intake Total 3200 Output Total 300 Balance 2900 - Medications Medications: Current Medications Aspirin (Ecotrin) 325 mg PO DAILY [facility] Dextrose (Dextrose 50% Inj) 0 ml IVP .STAT PRN; Protocol PRN Reason: Hypoglycemia Protocol Dextrose (Glutose 15) 0 gm PO .ONCE PRN; Protocol PRN Reason: Hypoglycemia Protocol Enoxaparin Sodium (Lovenox) 40 mg SC DAILY [facility] Famotidine (Pepcid) 20 mg PO DAILY [facility] Glucagon (Glucagen Diagnostic Kit) 0 mg IM .STAT PRN; Protocol PRN Reason: Hypoglycemia Protocol Dextrose (Dextrose 5% In Water 1000 Ml) 1,000 mls @ 0 mls/hr IV .Q0M PRN; Protocol; Per Protocol PRN Reason: Hypoglycemia Protocol Multivitamins/Vitamin C 10 ml/Folic Acid 1 mg/ Sodium Chloride 1,010.2 mls @ 100 mls/hr IV .Q10H7M ONE Stop: 01/23/18 11:46 Last Admin: 01/23/18 02:31 Dose: 100 mls/hr Piperacillin Sod/Tazobactam (Sod 3.375 gm/ Sodium Chloride) 100 mls @ 100 mls/ hr IVPB Q6H [facility] PRN Reason: Protocol Last Admin: 01/23/18 07:03 Dose: 100 mls/hr Vancomycin/Sodium Chloride (Vancomycin 1 Gm/Ns 200 Ml) 1 gm in 200 mls @ 133 mls/hr IVPB Q12H [facility] PRN Reason: Protocol Stop: 01/28/18 13:01 Insulin Human NPH (Novolin N) 44 unit SC HS [facility] Insulin Human Regular (Novolin R) 14 unit SC AC [facility] Last Admin: 01/23/18 08:39 Dose: 14 unit Insulin Human Regular (Novolin R) 0 unit SC ACHS [facility] PRN Reason: Protocol Last Admin: 01/23/18 08:40 Dose: 6 unit Lisinopril (Zestril) 10 mg PO DAILY [facility] Lorazepam (Ativan) 1 mg IVP Q6H PRN PRN Reason: Symptoms of alcohol withdrawl Multivitamins (Hexavitamin) 1 tab PO DAILY [facility] - Labs Labs: 01/23/18 05:34 01/23/18 05:34 - Constitutional Appears: Non-toxic, No Acute Distress - Head Exam Head Exam: ATRAUMATIC, NORMAL INSPECTION, NORMOCEPHALIC - Eye Exam Eye Exam: EOMI, Normal appearance - ENT Exam ENT Exam: Mucous Membranes Moist - Respiratory Exam Respiratory Exam: Clear to Ausculation Bilateral, NORMAL BREATHING PATTERN - Cardiovascular Exam Cardiovascular Exam: REGULAR RHYTHM, RRR, +S1, +S2 - GI/Abdominal Exam GI & Abdominal Exam: Soft, Normal Bowel Sounds. 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 Mcconnell help appreciated -Novolin 44u SC HS -Novolin R 14u SC AC -ISS -FS ACHS -Hypoglycemia protocol -ASA Hypertension -Hold lisinopril due to hypotension Prophylactic measures -Pepcid -Lovenox
[2018-01-23] MEDS ORDERED: Enoxaparin 40 mg Syringe SC SCH (10:00)
[2018-01-23] MEDS ORDERED: Multiple Vitamins Tab PO SCH (10:00)
[2018-01-23] MEDS ORDERED: cefTRIAXone 2 GM in Sodium Chloride 0.9% 100 ML IVPB SCH (10:00)
[2018-01-23] MEDS ORDERED: Aspirin 325 mg EC Tablets PO SCH (10:00)
--- NOTE | 2018-01-23 12:36 | CP.PCM.CON ---
History of Present Illness - History of Present Illness History of Present Illness: Podiatry Consult Note- Dr. Hernandez This is a 52 yo diabetic male seen at bedside today for OM L foot. Pt is well- known to podiatry service from last admission. Pt underwent multiple I&D's of L foot infection (DOS #1 12/18/17; DOS#2 12/27/17) with Dr. Hernandez, was found to have OM of left foot 4th metatarsal and was discharged 01/13 with PICC line for 6 weeks IV abx (rocephin 2 g). Pt has failed to f/u at the podiatry clinic as directed. He does say that he has been compliant with all antibiotic infusions. He denies any problems with the foot today, denies any pain or discomfort at this time. Says he still has stitches that need to be removed. Pt is currently admitted on OBSV for alcohol intoxication. Review of Systems - Review of Systems Review of Systems: all systems reviewed and found neg outside hpi Past Patient History - Infectious Disease Hx of Infectious Diseases: None - Past Medical History & Family History Past Medical History?: Yes - Past Social History Smoking Status: Never Smoked - CARDIAC Hx Hypertension: Yes - PULMONARY Hx Respiratory Disorders: No - NEUROLOGICAL Hx Neurological Disorder: No - HEENT Hx HEENT Problems: No - RENAL Hx Chronic Kidney Disease: No - ENDOCRINE/METABOLIC Hx Endocrine Disorders: Yes Hx Diabetes Mellitus Type 2: Yes - HEMATOLOGICAL/ONCOLOGICAL Hx Blood Disorders: No Hx Blood Transfusions: No Hx Blood Transfusion Reaction: No - INTEGUMENTARY Hx Dermatological Problems: Yes Hx Cellulitis: Yes (OSTEOMYELITIS LEFT FOOT) - MUSCULOSKELETAL/RHEUMATOLOGICAL Hx Musculoskeletal Disorders: No Hx Falls: No - GASTROINTESTINAL Hx Gastrointestinal Disorders: No - GENITOURINARY/GYNECOLOGICAL Hx Genitourinary Disorders: No - PSYCHIATRIC Hx Substance Use: No - SURGICAL HISTORY Hx Appendectomy: Yes Hx Cholecystectomy: Yes - ANESTHESIA Hx Anesthesia: Yes Hx Anesthesia Reactions: No Hx Malignant Hyperthermia: No Meds Allergies/Adverse Reactions: Allergies Allergy/AdvReac Type Severity Reaction Status Date / Time No Known Allergies Allergy Verified 01/22/18 21:57 - Medications Medications: Current Medications Aspirin (Ecotrin) 325 mg PO DAILY [facility] Last Admin: 01/23/18 10:11 Dose: 325 mg Dextrose (Dextrose 50% Inj) 0 ml IVP .STAT PRN; Protocol PRN Reason: Hypoglycemia Protocol Dextrose (Glutose 15) 0 gm PO .ONCE PRN; Protocol PRN Reason: Hypoglycemia Protocol Enoxaparin Sodium (Lovenox) 40 mg SC DAILY [facility] Last Admin: 01/23/18 10:11 Dose: 40 mg Famotidine (Pepcid) 20 mg PO DAILY [facility] Last Admin: 01/23/18 10:11 Dose: 20 mg Folic Acid (Folic Acid) 1 mg PO DAILY [facility] Glucagon (Glucagen Diagnostic Kit) 0 mg IM .STAT PRN; Protocol PRN Reason: Hypoglycemia Protocol Dextrose (Dextrose 5% In Water 1000 Ml) 1,000 mls @ 0 mls/hr IV .Q0M PRN; Protocol; Per Protocol PRN Reason: Hypoglycemia Protocol Piperacillin Sod/Tazobactam (Sod 3.375 gm/ Sodium Chloride) 100 mls @ 100 mls/ hr IVPB Q6H [facility] PRN Reason: Protocol Last Admin: 01/23/18 07:03 Dose: 100 mls/hr Vancomycin/Sodium Chloride (Vancomycin 1 Gm/Ns 200 Ml) 1 gm in 200 mls @ 133 mls/hr IVPB Q12H [facility] PRN Reason: Protocol Stop: 01/28/18 13:01 Insulin Human NPH (Novolin N) 44 unit SC HS [facility] Insulin Human Regular (Novolin R) 14 unit SC AC [facility] Last Admin: 01/23/18 11:45 Dose: Not Given Insulin Human Regular (Novolin R) 0 unit SC ACHS [facility] PRN Reason: Protocol Last Admin: 01/23/18 11:45 Dose: Not Given Lisinopril (Zestril) 10 mg PO DAILY [facility] Last Admin: 01/23/18 10:22 Dose: Not Given Lorazepam (Ativan) 1 mg IVP Q6H PRN PRN Reason: Symptoms of alcohol withdrawl Multivitamins (Hexavitamin) 1 tab PO DAILY [facility] Last Admin: 01/23/18 10:11 Dose: 1 tab Physical Exam - Constitutional Appears: Non-toxic, No Acute Distress - Extremities Exam Extremities exam: Negative for: calf tenderness Additional comments: L foot focused: VASC- pedal pulses are fully palpable, skin temp runs warm to warm (no increased callor), 2+ pitting edema noted to dorsum of foot, cap refill is brisk to all digits NEURO- gross and protective pedal sensation are diminished DERM- neg malodor, neg fluctuance, neg celluitis * surgical site #1 (medial mid-foot): cicatrix noted, well-coapted, all sutures intact, no signs infection * surgical site #2: (plantar mid-foot): cicatrix noted, slight dehisence noted, all sutures intact, no signs infection * surgical site #3: (dorsal mid-foot): cicatrix noted, well-coapted, all sutures intact, neg dehiscence, no signs infection * surgical site #4: distal-lateral leg): cicatrix noted, well-coapted, all sutures intact, no signs infection MSK- neg tenderness to palpation of all wounds, MMT is 5/5 all directions - Neurological Exam Neurological exam: Alert, CN II-XII Intact, Oriented x3 - Psychiatric Exam Psychiatric exam: Normal Affect, Normal Mood Results - Vital Signs Recent Vital Signs: Last Vital Signs Temp 98.1 F 01/23/18 10:19 Pulse 99 H 01/23/18 10:19 Resp 20 01/23/18 10:19 BP 143/80 01/23/18 10:19 Pulse Ox 96 01/23/18 10:19 - Labs Result Diagrams: 01/23/18 05:34 01/23/18 05:34 Labs: Laboratory Results - last 24 hr 01/22/18 01/22/18 01/22/18 22:09 22:33 22:59 WBC RBC Hgb Hct MCV MCH MCHC RDW Plt Count MPV Neut % (Auto) Lymph % (Auto) [place] % (Auto) Eos % (Auto) Baso % (Auto) Neut # (Auto) Lymph # (Auto) [place] # (Auto) Eos # (Auto) Baso # (Auto) Sodium 138 Potassium 4.6 Chloride 100 Carbon Dioxide 21 L Anion Gap 22 H BUN 9 Creatinine 0.6 L Est GFR ( Amer) > 60 Est GFR (Non-Af Amer) > 60 POC Glucose (mg/dL) 405 H* Random Glucose 513 H* D Lactic Acid 2.5 H Calcium 9.2 Total Bilirubin 0.8 AST 38 ALT 10 L D Alkaline Phosphatase 87 Total Protein 7.4 Albumin 3.7 Globulin 3.8 Albumin/Globulin Ratio 1.0 Urine Color Urine Clarity Urine pH Ur Specific [place] Urine Protein Urine Glucose (UA) Urine Ketones Urine Blood Urine Nitrate Urine Bilirubin Urine Urobilinogen Ur Leukocyte Esterase Urine WBC (Auto) Urine RBC (Auto) Urine Opiates Screen Urine Methadone Screen Ur Barbiturates Screen Ur Phencyclidine Scrn Ur Amphetamines Screen U Benzodiazepines Scrn U Oth Cocaine Metabols U Cannabinoids Screen Alcohol, Quantitative 327 H 01/22/18 01/22/18 01/22/18 23:10 23:10 23:47 WBC 7.2 RBC 3.06 L Hgb 10.3 L Hct 29.7 L MCV 97.1 H MCH 33.6 H MCHC 34.6 RDW 15.5 H Plt Count 240 MPV 7.9 Neut % (Auto) 52.1 Lymph % (Auto) 29.5 [place] % (Auto) 9.2 Eos % (Auto) 8.2 H Baso % (Auto) 1.0 Neut # (Auto) 3.7 Lymph # (Auto) 2.1 [place] # (Auto) 0.7 Eos # (Auto) 0.6 Baso # (Auto) 0.1 Sodium Potassium Chloride Carbon Dioxide Anion Gap BUN Creatinine Est GFR ( Amer) Est GFR (Non-Af Amer) POC Glucose (mg/dL) Random Glucose Lactic Acid Calcium Total Bilirubin AST ALT Alkaline Phosphatase Total Protein Albumin Globulin Albumin/Globulin Ratio Urine Color Colorless Urine Clarity Clear Urine pH 5.0 Ur Specific [place] 1.011 Urine Protein 1+ H Urine Glucose (UA) 3+ H Urine Ketones Negative Urine Blood Negative Urine Nitrate Negative Urine Bilirubin Negative Urine Urobilinogen Normal Ur Leukocyte Esterase Neg Urine WBC (Auto) < 1 Urine RBC (Auto) < 1 Urine Opiates Screen Negative Urine Methadone Screen Negative Ur Barbiturates Screen Negative Ur Phencyclidine Scrn Negative Ur Amphetamines Screen Negative U Benzodiazepines Scrn Negative U Oth Cocaine Metabols Negative U Cannabinoids Screen Negative Alcohol, Quantitative 01/23/18 01/23/18 01/23/18 00:49 03:28 05:34 WBC 4.6 L RBC 2.76 L Hgb 9.3 L Hct 27.2 L MCV 98.2 H MCH 33.6 H MCHC 34.2 RDW 15.6 H Plt Count 224 MPV 8.0 Neut % (Auto) 51.0 Lymph % (Auto) 31.2 [place] % (Auto) 7.5 Eos % (Auto) 9.2 H Baso % (Auto) 1.1 Neut # (Auto) 2.3 Lymph # (Auto) 1.4 [place] # (Auto) 0.3 Eos # (Auto) 0.4 Baso # (Auto) 0.1 Sodium Potassium Chloride Carbon Dioxide Anion Gap BUN Creatinine Est GFR ( Amer) Est GFR (Non-Af Amer) POC Glucose (mg/dL) 188 H Random Glucose Lactic Acid 3.4 H Calcium Total Bilirubin AST ALT Alkaline Phosphatase Total Protein Albumin Globulin Albumin/Globulin Ratio Urine Color Urine Clarity Urine pH Ur Specific [place] Urine Protein Urine Glucose (UA) Urine Ketones Urine Blood Urine Nitrate Urine Bilirubin Urine Urobilinogen Ur Leukocyte Esterase Urine WBC (Auto) Urine RBC (Auto) Urine Opiates Screen Urine Methadone Screen Ur Barbiturates Screen Ur Phencyclidine Scrn Ur Amphetamines Screen U Benzodiazepines Scrn U Oth Cocaine Metabols U Cannabinoids Screen Alcohol, Quantitative 01/23/18 01/23/18 01/23/18 05:34 07:41 11:31 WBC RBC Hgb Hct MCV MCH MCHC RDW Plt Count MPV Neut % (Auto) Lymph % (Auto) [place] % (Auto) Eos % (Auto) Baso % (Auto) Neut # (Auto) Lymph # (Auto) [place] # (Auto) Eos # (Auto) Baso # (Auto) Sodium 142 Potassium 4.1 Chloride 108 H Carbon Dioxide 18 L Anion Gap 19 BUN 8 L Creatinine 0.9 Est GFR ( Amer) > 60 Est GFR (Non-Af Amer) > 60 POC Glucose (mg/dL) 342 H 78 Random Glucose 307 H Lactic Acid Calcium 8.2 L Total Bilirubin 0.2 AST 28 ALT 14 L D Alkaline Phosphatase 84 Total Protein 6.0 L Albumin 2.9 L D Globulin 3.1 Albumin/Globulin Ratio 0.9 L Urine Color Urine Clarity Urine pH Ur Specific [place] Urine Protein Urine Glucose (UA) Urine Ketones Urine Blood Urine Nitrate Urine Bilirubin Urine Urobilinogen Ur Leukocyte Esterase Urine WBC (Auto) Urine RBC (Auto) Urine Opiates Screen Urine Methadone Screen Ur Barbiturates Screen Ur Phencyclidine Scrn Ur Amphetamines Screen U Benzodiazepines Scrn U Oth Cocaine Metabols U Cannabinoids Screen Alcohol, Quantitative Assessment & Plan - Assessment and Plan (Free Text) Assessment: 52 yo male patient 4 weeks s/p I&D L foot, + OM 4th metatarsal Plan: Pt S&E at bedside plan discussed with Dr. Hernandez afebrile, no leukocytosis all sutures aseptically removed from L foot, dressed betadine DSD pt advised to keep c/d/i, do not get wet sx shoe ordered refusing foot x-ray today, will be done as outpatient f/u [facility] pod[facility] with Dr. Hernandez 01/27/18
[2018-01-23 15:36] VITALS: BP 130/74; RESP 18; TEMP 97.9; O2SAT 95
--- NOTE | 2018-01-23 16:04 | CP.PCM.DIS ---
Provider - Provider Date of Admission: 01/22/18 23:17 Attending physician: Johnathon Diaz MD Primary care physician: Dr. Marr Consults: Dr. Hernandez (podiatry) Time Spent in preparation of Discharge (in minutes): 40 Diagnosis - Discharge Diagnosis (1) Osteomyelitis Status: Acute Comment: resolving patient to continue getting Rocephin at infusion center (2) Alcohol abuse Status: Chronic (3) Uncontrolled diabetes mellitus Status: Chronic (4) HTN (hypertension) Status: Chronic Hospital Course - Lab Results Lab Results: Most Recent Lab Values WBC 4.6 K/uL (4.8-10.8) L 01/23/18 05:34 RBC 2.76 Mil/uL (4.40-5.90) L 01/23/18 05:34 Hgb 9.3 g/dL (12.0-18.0) L 01/23/18 05:34 Hct 27.2 % (35.0-51.0) L 01/23/18 05:34 MCV 98.2 fL (80.0-94.0) H 01/23/18 05:34 MCH 33.6 pg (27.0-31.0) H 01/23/18 05:34 MCHC 34.2 g/dL (33.0-37.0) 01/23/18 05:34 RDW 15.6 % (11.5-14.5) H 01/23/18 05:34 Plt Count 224 K/uL (130-400) 01/23/18 05:34 MPV 8.0 fL (7.2-11.7) 01/23/18 05:34 Neut % (Auto) 51.0 % (50.0-75.0) 01/23/18 05:34 Lymph % (Auto) 31.2 % (20.0-40.0) 01/23/18 05:34 [place] % (Auto) 7.5 % (0.0-10.0) 01/23/18 05:34 Eos % (Auto) 9.2 % (0.0-4.0) H 01/23/18 05:34 Baso % (Auto) 1.1 % (0.0-2.0) 01/23/18 05:34 Neut # (Auto) 2.3 K/uL (1.8-7.0) 01/23/18 05:34 Lymph # (Auto) 1.4 K/uL (1.0-4.3) 01/23/18 05:34 [place] # (Auto) 0.3 K/uL (0.0-0.8) 01/23/18 05:34 Eos # (Auto) 0.4 K/uL (0.0-0.7) 01/23/18 05:34 Baso # (Auto) 0.1 K/uL (0.0-0.2) 01/23/18 05:34 Sodium 142 mmol/L (132-148) 01/23/18 05:34 Potassium 4.1 mmol/L (3.6-5.2) 01/23/18 05:34 Chloride 108 mmol/L (98-107) H 01/23/18 05:34 Carbon Dioxide 18 mmol/L (22-30) L 01/23/18 05:34 Anion Gap 19 (10-20) 01/23/18 05:34 BUN 8 mg/dL (9-20) L 01/23/18 05:34 Creatinine 0.9 mg/dL (0.8-1.5) 01/23/18 05:34 Est GFR ( Amer) > 60 01/23/18 05:34 Est GFR (Non-Af Amer) > 60 01/23/18 05:34 POC Glucose (mg/dL) 78 mg/dL (65-110) 01/23/18 11:31 Random Glucose 307 mg/dL (75-110) H 01/23/18 05:34 Lactic Acid 3.4 mmol/L (0.7-2.1) H 01/23/18 03:28 Calcium 8.2 mg/dl (8.6-10.4) L 01/23/18 05:34 Total Bilirubin 0.2 mg/dL (0.2-1.3) 01/23/18 05:34 AST 28 U/L (17-59) 01/23/18 05:34 ALT 14 U/L (21-72) L D 01/23/18 05:34 Alkaline Phosphatase 84 U/L (38-126) 01/23/18 05:34 Total Protein 6.0 g/dL (6.3-8.3) L 01/23/18 05:34 Albumin 2.9 g/dL (3.5-5.0) L D 01/23/18 05:34 Globulin 3.1 gm/dL (2.2-3.9) 01/23/18 05:34 Albumin/Globulin Ratio 0.9 (1.0-2.1) L 01/23/18 05:34 Urine Color Colorless (YELLOW) 01/22/18 23:10 Urine Clarity Clear (Clear) 01/22/18 23:10 Urine pH 5.0 (5.0-8.0) 01/22/18 23:10 Ur Specific [place] 1.011 (1.003-1.030) 01/22/18 23:10 Urine Protein 1+ mg/dL (NEGATIVE) H 01/22/18 23:10 Urine Glucose (UA) 3+ mg/dL (Normal) H 01/22/18 23:10 Urine Ketones Negative mg/dL (NEGATIVE) 01/22/18 23:10 Urine Blood Negative (NEGATIVE) 01/22/18 23:10 Urine Nitrate Negative (NEGATIVE) 01/22/18 23:10 Urine Bilirubin Negative (NEGATIVE) 01/22/18 23:10 Urine Urobilinogen Normal mg/dL (0.2-1.0) 01/22/18 23:10 Ur Leukocyte Esterase Neg Junior/uL (Negative) 01/22/18 23:10 Urine WBC (Auto) < 1 /hpf (0-5) 01/22/18 23:10 Urine RBC (Auto) < 1 /hpf (0-3) 01/22/18 23:10 Urine Opiates Screen Negative (NEGATIVE) 01/22/18 23:10 Urine Methadone Screen Negative (NEGATIVE) 01/22/18 23:10 Ur Barbiturates Screen Negative (NEGATIVE) 01/22/18 23:10 Ur Phencyclidine Scrn Negative (NEGATIVE) 01/22/18 23:10 Ur Amphetamines Screen Negative (NEGATIVE) 01/22/18 23:10 U Benzodiazepines Scrn Negative (NEGATIVE) 01/22/18 23:10 U Oth Cocaine Metabols Negative (NEGATIVE) 01/22/18 23:10 U Cannabinoids Screen Negative (NEGATIVE) 01/22/18 23:10 Alcohol, Quantitative 327 mg/dl (0-10) H 01/22/18 22:33 - Hospital Course Hospital Course: "52 year old male with past medical history of hypertension, uncontrolled diabetes, and osteomyelitis of left 4th metatarsal presents to the ED today for evaluation of alcohol intoxication. Patient reports that he was drinking right before coming to the ED, stated that he only had 1 beer today. Patient also complains of left foot pain which has been going on for "a long time". He was recently discharged from [facility] for osteomyelitis of left foot and was setup for outpatient IV antibiotic transfusion. When asked about his blood glucose control, he states he has not been taking his insulin or checking his sugar regularly. Patient was intoxicated and unable to answer further questions." Patient admitted for hypothermia, alcohol intoxication, and osteomyelitis of the left foot. Patient was re-warmed with a Magda hugger. Patient was also placed on CIWA protocol and given Ativan for withdrawal symptoms. Patient explained importance of staying sober and going to AA meetings. For his osteomyelitis Zosyn was given and podiatry consulted. Podiatry saw the patient and took out his stiches, cleaned, and redressed the wound. Patient will need to follow up with podiatry on 01/27/18 and get xrays of his left foot as an outpatient. Patient will also need to continue going to the infusion center for his Rocephin until 01/31 as originally planned. Patient's chronic condition of diabetes was managed with his home medications Novolin 44u SC HS and Novolin R 14u SC AC. Patient was hypotensive on admission, so his home medication Lisinopril was held. Upon discharge patient's blood pressure was 130/74 and temp of 98 F. Patient had no complaints and was feeling better. Patient should also follow up with the [facility] within one week of discharge. Patient to please return to Emergency Room if symptoms return or worsen. This is a summary of the patient's hospital course, please see chart for full details. Discharge Exam - Head Exam Head Exam: ATRAUMATIC, NORMAL INSPECTION, NORMOCEPHALIC - Additional Findings Additional findings: - Constitutional Appears: Non-toxic, No Acute Distress - Head Exam Head Exam: ATRAUMATIC, NORMAL INSPECTION, NORMOCEPHALIC - Eye Exam Eye Exam: EOMI, Normal appearance - ENT Exam ENT Exam: Mucous Membranes Moist - Respiratory Exam Respiratory Exam: Clear to Ausculation Bilateral, NORMAL BREATHING PATTERN - Cardiovascular Exam Cardiovascular Exam: REGULAR RHYTHM, RRR, +S1, +S2 - GI/Abdominal Exam GI & Abdominal Exam: Soft, Normal Bowel Sounds. absent: Tenderness - Extremities Exam Extremities Exam: Pedal Edema (b/l 2+ pitting edema) Additional comments: left foot wrapped in c/d/i dressing - Neurological Exam Neurological Exam: Alert, Awake, Oriented x3 - Psychiatric Exam Psychiatric exam: Agitated, Normal Affect - Skin Skin Exam: Intact, Normal Color, Warm Discharge Plan - Follow Up Plan Condition: FAIR Disposition: HOME/ ROUTINE Instructions: High Blood Pressure in Adults, Peripherally-Inserted Central Catheter, Diabetes Diet , Diabetes Type 2 (DC), Osteomyelitis (DC), Alcohol Abuse and Alcoholism (DC), Ceftriaxone Additional Instructions: Patient stable for discharge as per Dr. Beth and podiatry. Patient to continue getting PICC line infusions of Ceftriaxone. Patient to follow up with podiatry on Saturday and get xrays of his foot as an outpatient. Patient to continue home medications. Patient to return to ED if symptoms worsen or persist. Patient explained instructions who understands and agrees. Referrals: Davina Hernandez DPM [Staff Provider] -
[2018-01-23 16:12] VITALS: PULSE 98
[2018-01-23] MEDS ORDERED: (Novolin R) Insulin Human Regular 100 units/ml vial SC SCH ×2 (16:30)
[2018-01-23] MEDS ORDERED: (Novolin N) Insulin Human Isophane (NPH) 100 u/ml 10 ml vial SC SCH (22:00)
--- NOTE | 2018-01-24 09:38 | CON ---
DATE: ENDOCRINOLOGY CONSULTLOCATION: Room 651. HISTORY OF PRESENT ILLNESS: This is a 52-year-old male with recent uncontrolled type 2 insulin requiring diabetes, presenting here with a right fourth metatarsal cellulitis and underlying osteomyelitis and is being referred now for diabetic evaluation and management. PAST MEDICAL HISTORY: As mentioned above, history of type 2 insulin requiring diabetes on a combination therapy with very poor adherence to the aforementioned thereof. Also history of hypertension and dyslipidemia, history of diabetic polyneuropathy with underlying peripheral arterial vasculopathy as noted. FAMILY HISTORY: Positive for hypertension and diabetes. SOCIAL HISTORY: The patient has a supportive family. No known substance use. REVIEW OF SYSTEMS: Admits to generalized body weakness with episodic bouts of dizziness and lightheadedness, worse on the day of admission, also admits to occasional bifrontal headaches with visual blurring as noted. His energy level can be variable and suboptimal at this time. No chest pain, palpitations or PND. His oral intake has been variable with nausea, dyspepsia, and vague upper abdominal pains. Also admits to marked polyuria, nocturia, polydipsia as noted. PHYSICAL EXAMINATION: GENERAL: This is an average-built male in no apparent distress. VITAL SIGNS: With blood pressure 150/90, pulse of 70 beats per minute and regular, temperature 98, respirations 20, height is 5 feet 2 inches, weight is 160 pounds. HEENT: Head normocephalic. Eyes anicteric with pink conjunctivae. Funduscopy is not possible at this time. Ears, nose and throat, otherwise normal. NECK: Supple. Thyroid gland is normal in size. No carotid bruits or cervical adenopathy. CARDIOPULMONARY: Some adynamic precordium. S1, S2 is rapid and regular. LUNGS: Clear to auscultation. ABDOMEN: Flat, soft with positive bowel sounds. EXTREMITIES: The right fourth toe shows redness and erythema as noted. LABORATORY DATA: Chemistry showed a BUN of 8, sodium 142, potassium 4.1, chloride 108, CO2 of 18, glucose 307, creatinine 0.9. ASSESSMENT: This is a 52-year-old male with uncontrolled and decompensated type 2 insulin requiring diabetes, presenting here with right foot cellulitis and underlying osteomyelitis as noted. Plan of management as discussed with the patient and staff, we will modify his insulin dose coverage with NovoLog to obviate hypoglycemia and detailed orders have been given. We will modify his basal and bolus insulin regimen and increase the Novolin NPH to 44 units subcu at bedtime daily to start tonight. We lowered the regular insulin to 10 units subcu t.i.d. before meals as ordered. We will obtain serial chemistries and supplement accordingly as needed. We will follow with you. Celia Mcconnell MD
== END 2018-01-23 18:09 | disposition home or self-care (01) | DRG 750 ==
LOC: C.ER 21:35 → C.9E 23:17 → C.3T 23:39 → C.9E 23:39 → C.6T 01-23 05:10
PROVIDERS: ADMIT Family Medicine; ATTEND Family Medicine
PROC: HZ2ZZZZ Detoxification Services for Substance Abuse Treatment (ICD-10-PCS; principal; 2018-01-22)
DX: F10.120 Alcohol abuse with intoxication, uncomplicated (principal); E11.649 Type 2 diabetes mellitus with hypoglycemia without coma; L03.115 Cellulitis of right lower limb; Y90.8 Blood alcohol level of 240 mg/100 ml or more; E78.5 Hyperlipidemia, unspecified; H66.92 Otitis media, unspecified, left ear; I10 Essential (primary) hypertension; M86.9 Osteomyelitis, unspecified; Z79.4 Long term (current) use of insulin; Z91.14 Patient's other noncompliance with medication regimen; Z91.19 Patient's noncompliance with other medical treatment and regimen